=== PATIENT | female | born 1945 | race Caucasian/White ===

== ENCOUNTER → 2017-02-17 | Outpatient (CLI) | payer BC ==
[~2017-02-17] MED LIST: ACET-1256 PO; ALPR-411 PO; AMIO200T4 PO; AMOX875T PO; AMPI500C9 PO; ASPI81TA21 PO; ASPI81TA28 PO; BENZ100C18 PO; BENZ100C7 PO; BIOT1CAP4 PO; BIOT1TAB5 PO; CALCTAB5 PO; CALCTAB7 PO; CHOL2000 PO; CLC100 PO; CRDCD180 PO; CYAN100T PO; DILT-113 PO; DLCSR120 PO; DOCU100C31 PO; FLV1 PO; FOLI1TAB7 PO; FSMD/70 PO; GABA-112 PO; HYDR-5688 PO; LISI-461 PO; MACUHEALTH PO; METH2.5T PO; MULT1CAP53 PO; OMEG10007 PO; PYR50 PO; RIVA1TAB4 PO; ULT/50 PO; VTMD1000 PO; XRL20 PO; inhaler
== END | disposition home or self-care (01) ==
LOC: C.MAMM 14:28
PROVIDERS: ATTEND Family Medicine
DX: M85.89 Other specified disorders of bone density and structure, multiple sites (principal)

== ENCOUNTER 2017-08-13 14:26 | Inpatient (IN) | payer BC, OTHER ==
[~2017-08-13] VITALS: Ht 149.9 cm; Wt 51.9 kg
[~2017-08-13 14:26] MED LIST changes: -ACET-1256 PO; -AMIO200T4 PO; -AMOX875T PO; -AMPI500C9 PO; -ASPI81TA28 PO; -BENZ100C18 PO; -BENZ100C7 PO; -BIOT1TAB5 PO; -CALCTAB7 PO; -CHOL2000 PO; -CLC100 PO; -CRDCD180 PO; -DILT-113 PO; -DLCSR120 PO; -DOCU100C31 PO; -FOLI1TAB7 PO; -FSMD/70 PO; -GABA-112 PO; -HYDR-5688 PO; -LISI-461 PO; -MULT1CAP53 PO; -RIVA1TAB4 PO; -ULT/50 PO; -XRL20 PO; -inhaler
[2017-08-13] MEDS ORDERED: DILTIAZEM BOLUS / DRIP IV STA (14:55)
[2017-08-13] MEDS ORDERED: SODIUM CHLORIDE 0.9% 1000ML 1,000 ML IV STA (14:55)
[2017-08-13] MEDS ORDERED: DILTIAZEM HCL 5 MG/ML 5 ML VIAL IV ONE (15:15)
[2017-08-13] MEDS ORDERED: DILTIAZEM HCL INJ 125 MG in DEXTROSE 5% 100ML IV PRN (15:15)
[2017-08-13] MEDS ORDERED: CALCTAB7 PO (15:25)
[2017-08-13] MEDS ORDERED: MULT1CAP53 PO (15:25)
[2017-08-13] MEDS ORDERED: FSMD/70 PO (15:25)
[2017-08-13] MEDS ORDERED: FOLI1TAB7 PO (15:25)
[2017-08-13] MEDS ORDERED: ACET-1256 PO (15:25)
[2017-08-13] MEDS ORDERED: BIOT1TAB5 PO (15:25)
[2017-08-13] MEDS ORDERED: ASPIRIN 81 MG CHEW PO STA (15:34)
[2017-08-13 15:38] LABS: BASO % 0.1 %; BASO ABS # 0.02 K/uL (0-0.2); COMPLETE YES; EOS % 0.3 %; IG% 0.3 %; LYMPH % 4.1 %; LYMPH ABS # 0.61 K/uL (1.2-3.4); MEAN CELL VOLUME 93.8 fL (80-100); MEAN CORPUSCULAR HEMOGLOBIN 31.9 pg (25-34); MEAN PLATELET VOLUME 9.6 fL (7.4-10.4); MONO % 6.3 %; NEUT % 88.9 %; PLATELET COUNT 314 K/uL (130-400); RED BLOOD COUNT 4.48 M/uL (4.2-5.4); WHITE BLOOD COUNT 14.85 K/uL (4.8-10.8)
--- NOTE | 2017-08-13 15:41 | DIAGNOSTIC IMAGING REPORT ---
CHEST ONE VIEW PORTABLE CLINICAL HISTORY: 72 years-old Female presenting with Chest Pain. TECHNIQUE: Portable upright AP view of the chest was obtained. COMPARISON: Thoracic radiographs from 06/24/2016. FINDINGS: Atherosclerosis of aortic arch. Cardiac silhouette normal in size. Lungs mildly hyperinflated. Apparent spiculated 3.9 cm mass in the central left lung. An old calcified granuloma may be present at the right apex. No pleural effusion or pneumothorax. Degenerative changes of the thoracic spine. Upper abdomen normal. IMPRESSION: 1. 3.9 cm central left lung mass. This is highly concerning for a neoplastic process. Further evaluation with contrast-enhanced chest CT recommended. The report will be called/faxed according to standard departmental protocol. Electronically signed by: Yuri Delong M.D. 08/13/2017 3:40 PM Dictated Date/Time: 08/13/2017 3:38 PM
[2017-08-13] MEDS ORDERED: NITROGLYCERIN 0.4 MG SL PER TAB CHARGE SL PRN (15:45)
[2017-08-13] MEDS ORDERED: OPTIRAY 320 IV PRN (16:00)
[2017-08-13 16:12] LABS: BLOOD UREA NITROGEN 15 mg/dl (7-18); BUN/CREATININE RATIO 14.9 (10-20); CALCIUM 9.1 mg/dl (8.5-10.1); CARBON DIOXIDE 21 mmol/L (21-32); CHLORIDE 102 mmol/L (98-107); CREATININE 0.99 mg/dl (0.60-1.20); GLUCOSE 118 mg/dl (70-99); POTASSIUM 3.9 mmol/L (3.5-5.1); SODIUM 133 mmol/L (136-145)
[2017-08-13 16:17] LABS: CKMB/CK RATIO 1.4 (0-3.0)
[2017-08-13] MEDS ORDERED: LISI-461 PO (17:07)
--- NOTE | 2017-08-13 17:34 | DIAGNOSTIC IMAGING REPORT ---
(CHEST FOR PE) ANGIO WITH CT DOSE: 248.86 mGycm HISTORY: Chest pain lung mass TECHNIQUE: Multiaxial CT images of the chest were performed following the intravenous administration of contrast to evaluate the pulmonary arteries. Maximal intensity projection images were also obtained. A dose lowering technique was utilized adhering to the principles of ALARA. COMPARISON STUDY: None. FINDINGS: Slight prominence a sending thoracic aorta measuring 2.8 x 2.5 cm. Mild cardiomegaly. Pulmonary vasculature enhances appropriately. No significant filling defects. Left retrohilar mass measuring 3.6 x 3.0 cm. This appears to be occluding components of the left lower lobe bronchus. Probable component of mediastinal and hilar adenopathy. Slight peribronchial thickening throughout both hemithoraces. IMPRESSION: 1. No evidence of pulmonary embolus. 2. Left hilar mass measuring 3.6 x 3.0 cm. 3. Neoplasm is the diagnosis of exclusion. 4. Probable hilar and/or mediastinal adenopathy. 5. Mild prominence a sending thoracic aorta with maximum diameter of 2.8 x 2.5 cm. The above report was generated using voice recognition software. It may contain grammatical, syntax or spelling errors. Electronically signed by: Donavno Avitia M.D. 08/13/2017 5:33 PM Dictated Date/Time: 08/13/2017 5:27 PM
[2017-08-13 17:50] VITALS: O2SAT 97; Ht 149.9 cm; Wt 51.9 kg
--- NOTE | 2017-08-13 17:50 | ECHOCARDIOGRAM REPORT ---
*NOTICE TO RECEIVING CONSTITUTION PARTY AGENCY This information is strictly Confidential and protected under [place] law. [place] law prohibits you from making any further disclosure of this information unless further disclosure is expressly permitted by the written consent of the person to whom it pertains or is authorized by law. A general authorization for the release of medical or other information is not sufficient for this purpose. Hospital accepts no responsibility if the information is made available to any other person, INCLUDING THE PATIENT. Interpretation Summary * Name: ROSEMARIE BARAKAT Study Date: 08/13/2017 04:07 PM BP: 160/73 mmHg * Patient Location: C.ED HR: 96 * : 1945 (M/d/yyyy) Gender: Female * Age: 72 yrs Ethnicity: CA * Ordering Physician: MD Kyle Lynch MD * Referring Physician: MD Kyle Lynch MD * Performed By: Leesa Valle RCS * * Reason For Study: ABN EKG * -- Conclusions -- * 1. Normal LV size, borderline concentric LVH. * 2. Normal LV systolic function. LVEF 60-65%. No regional wall motion abnormalities. * 3. Normal RV size and function. * 4. No significant valvular patholgoy. * 5. Borderline pulmonary hypertension. Est PASP 35-40 mmHg. * 6. No prior studies for comparison. Procedure Details * A complete two-dimensional transthoracic echocardiogram was performed (2D, M-mode, Doppler and color flow Doppler). Left Ventricle * The left ventricle is grossly normal size. * There is borderline concentric left ventricular hypertrophy. * Ejection Fraction = 60-65%. * No regional wall motion abnormalities noted. Right Ventricle * The right ventricle is grossly normal size. * The right ventricular systolic function is normal as assessed by tricuspid annular plane systolic excursion (TAPSE) (normal >1.5 cm). Atria * The left atrial size is normal. * Right atrial size is normal. * No ASD detected; PFO is not assessed. Mitral Valve * The mitral valve is grossly normal. * There is no mitral valve stenosis. * There is trace mitral regurgitation. Tricuspid Valve * There is no tricuspid stenosis. * There is trace tricuspid regurgitation. Aortic Valve * The aortic valve opens well. * No hemodynamically significant valvular aortic stenosis. * There is no significant aortic regurgitation. Pulmonic Valve * The pulmonary valve is inadequately visualized, but the Doppler data is adequate for interpretation. * Pulmonic stenosis is absent. * There is no significant pulmonary regurgitation. Great Vessels * The aortic root and proximal ascending aorta are normal sized. Pericardium/Pleural * Trivial pericardial effusion Great Vessels * IVC > 2.1; <50% change with respiration. Est RA 8 mmHg. MMode 2D Measurements and Calculations IVSd 1.1 cm IVSs 1.7 cm LVIDd 3.0 cm LVIDs 2.4 cm LVPWd 1.2 cm LVPWs 1.1 cm IVS/LVPW 0.88 FS 19.5 % EDV(Teich) 34.4 ml ESV(Teich) 20.1 ml EF(Teich) 41.5 % EDV(cubed) 26.4 ml ESV(cubed) 13.8 ml EF(cubed) 47.8 % % IVS thick 57.8 % % LVPW thick -5.71 % LV mass(C)d 98.3 grams LV mass(C)s 106.4 grams SV(Teich) 14.3 ml SV(cubed) 12.6 ml Ao root diam 2.6 cm Ao root area 5.5 cm\S\2 LVOT diam 1.8 cm LVOT area 2.7 cm\S\2 Doppler Measurements and Calculations MV E max seema 91.7 cm/sec MV A max seema 71.7 cm/sec MV E/A 1.3 MV P1/2t max seema 101.8 cm/sec MV P1/2t 56.6 msec MVA(P1/2t) 3.9 cm\S\2 MV dec slope 527.3 cm/sec\S\2 MV dec time 0.16 sec Ao V2 max 121.2 cm/sec Ao max PG 5.9 mmHg Ao max PG (full) 1.5 mmHg CHAYITO(V,A) 2.3 cm\S\2 CHAYITO(V,D) 2.3 cm\S\2 LV V1 max PG 4.3 mmHg LV V1 max 104.1 cm/sec PA V2 max 89.7 cm/sec PA max PG 3.2 mmHg TR max seema 279.5 cm/sec
[2017-08-13] MEDS ORDERED: DILTIAZEM HCL 5 MG/ML 5 ML VIAL IV PRN (18:45)
[2017-08-13] MEDS ORDERED: ZOLPIDEM TARTRATE 5 MG TAB PO PRN (18:45)
[2017-08-13] MEDS ORDERED: LORAZEPAM 2 MG/ML 1 ML VIAL IV PRN (18:45)
[2017-08-13] MEDS ORDERED: ACETAMINOPHEN 325 MG TAB PO PRN (18:45)
[2017-08-13 19:02] LABS: MAGNESIUM 2.2 mg/dl (1.8-2.4)
[2017-08-13] MEDS ORDERED: DILTIAZEM HCL 30 MG TAB PO STA (19:25)
--- NOTE | 2017-08-13 19:25 | CARDIOLOGY CONSULTATION ---
DATE OF CONSULTATION: 08/13/2017 CONSULTATION REQUESTED BY: Dr. Polk in the Emergency Department. REASON FOR CONSULTATION: EKG abnormality, atrial arrhythmia. HISTORY OF PRESENT ILLNESS: Ms. Mendoza is a very pleasant 72-year-old woman with a history of COPD, hypertension, rheumatoid arthritis, and dyslipidemia who presented today with persistent chest pain and palpitations. The patient endorses intermittent palpitations for years. These will occur infrequently, often after eating a salty meal. They would last for minutes and then go away on their own without any associated symptoms. This morning approximately 1:00 a.m., developed palpitations while sleeping. This was associated with significant chest pain. She waited and it maxed 06/25. Pain persisted throughout the morning and into the afternoon before she presented to urgent care. There EKGs were done which suggested atrial arrhythmia and she was sent to the Emergency Department. In the ED initially had an EKG which appeared to be atrial flutter with RVR and heart rates in the 160s. She was given diltiazem and converted to sinus rhythm. Followup EKG showed sinus rhythm with questionable inferolateral ST elevations. Upon my review, it appeared to be J-point elevation and at time of initial interview, the patient was chest pain free. As a result, no heart alert was activated. An urgent echocardiogram showed preserved LV function without any regional wall motion abnormalities. PAST MEDICAL HISTORY: 1. Rheumatoid arthritis. 2. COPD. 3. Hypertension. 4. Hyperlipidemia. 5. Anxiety. 6. Right lumbar radiculopathy. 7. Osteopenia. FAMILY HISTORY: Had a brother who suddenly of an UT in his early 50s. Parents had high blood pressure. SOCIAL HISTORY: She has been smoking for more than 50 years, previously a pack per day, most recently approximately a half a pack. Rare alcohol, is retired. Most recently worked at [employer], previously worked for [employer] before that. MEDICATIONS: Include Tylenol, Fosamax, alprazolam, aspirin 81, biotin, calcium carbonate, vitamin D, vitamin B12, fish oil, folic acid, lisinopril 10 mg, methotrexate 2.5 and multivitamin. REVIEW OF SYSTEMS: Ten-point review of systems completed and otherwise negative unless stated in HPI. PHYSICAL EXAMINATION: VITAL SIGNS: Temperature 36.6, pulse of 96, blood pressure 160/73, she is satting 97% on room air. GENERAL: The patient appears comfortable in no acute distress. HEENT: Sclerae are anicteric. Oropharynx is clear. Mucous membranes are moist. NECK: Supple with no lymphadenopathy. LUNGS: Clear to auscultation bilaterally. CARDIAC: She has a regular rate and rhythm with no appreciable murmurs, rubs or gallops. ABDOMEN: Soft, nontender, nondistended with positive bowel sounds. EXTREMITIES: Warm. She has no significant lower extremity edema. She has intact distal pulses. SKIN: Shows no rashes or lesions. NEUROLOGIC: Nonfocal. PSYCHIATRIC: She is alert and oriented and appropriate. LABORATORY DATA: White blood cell count was 14.8, hemoglobin of 14.3, platelets of 314. D-dimer was elevated at 390. Chemistry showed sodium 133, potassium 3.9, BUN 15, creatinine of 1.0. Initial point of care troponin was negative as was CK-MB. Initial chest x-ray showed a 3.9 cm central lung mass. Followup CTA was negative for PE. There was a left retrohilar mass measuring 3.6 x 3.0 cm along with probable hilar and mediastinal adenopathy. Echocardiogram showed normal LV size, borderline concentric LVH, normal LV function with an EF of 60-65% without regional wall motion abnormalities. There was no significant valvular pathology. IMPRESSION AND PLAN: 1. Atrial flutter with rapid ventricular response. 2. EKG with ST elevations most consistent with J-point/repolarization abnormality. 3. Lung mass concerning for neoplastic process. 4. Hypertension. 5. Dyslipidemia. 6. Rheumatoid arthritis. 7. Ongoing tobacco abuse. Mrs. Mendoza is here with persistent chest pain for more than 12 hours in the setting of atrial flutter with RVR on presentation. The patient converted in the ED with AV cee agents and has been chest pain free since conversion. Cardiology initially contacted due to concern for ST elevations on follow-up ECG. Feel these ECG findings represent early repolarization and low suspicion for ACS. Atrial flutter today diagnosed in the setting of new concerning lung mass for malignancy on chest imaging. From a cardiac standpoint going forward recommend atrial flutter suppression with AV cee agents, consider low-dose diltiazem. snf, patient likely a candidate for anticoagulation with a CHADS-VASc score of 3. Would defer on anticoagulation until further workup of lung mass. No other cardiac testing necessary at this point and will continue to follow during hospitalization. Thank you for allowing us to participate in the care of this patient. NAMAN
--- NOTE | 2017-08-13 19:39 | History and Physical ---
History & Physical Date & Time of Service: Aug 13, 2017 at 19:38 Chief Complaint: Chest Pain Primary Care Physician: RV. Reveles MD History of Present Illness Source: patient The patient is a 72-year-old female who presents to the emergency department with chest pain radiating to her neck, that woke her up from sleep at around 1: 00 this morning. 2 days ago she noted heart palpitations but did not have chest pain at that time. She was seen at her PCPs office this morning, had an EKG performed which showed atrial fibrillation with RVR, and was referred to emergency department for assessment. She has no previous history of atrial fibrillation. Past Medical/Surgical History Medical Problems: (1) Arthritis Status: Chronic Family History Noncontributory Social History Smoking Status: Current Every Day Smoker Smokeless Tobacco Use: No Alcohol Use: none Drug Use: none Occupational Status: retired Immunizations History of Influenza Vaccine: Unknown History of Tetanus Vaccine?: Unknown History of Pneumococcal: Unknown History of Hepatitis B Vaccine: Unknown Multi-Drug Resistant Organisms History of MDRO: No Allergies Coded Allergies: No Known Allergies (Unverified , 09/07/14) Home Medications Scheduled Acetaminophen (Tylenol), 1,000 MG PO PRN UD Alendronate/Cholecalciferol (Fosamax+D 70MG/2800 Iu), 1 TABLET PO WK Alprazolam (Xanax), 0.5 MG PO QAM Aspirin Enteric Coated (Ecotrin Or Generic), 81 MG PO DAILY Biotin (Biotin), 1 TAB PO DAILY Calcium Carbonate-Vitamin D W/ (Caltrate 600 Plus), 1 TAB PO DAILY Cyanocobalamin (Vitamin B-12), 500 MCG PO DAILY Fish Oil ([place]-3), 1,200 MG PO DAILY Folic Acid (Folvite), 1 MG PO DAILY Lisinopril (Zestril), 10 MG PO DAILY Methotrexate (Methotrexate), 10 MG PO WK Multiple Vitamins W/ Minerals (Macular Health Formula), 1 CAP PO DAILY Review of Systems The patient denies cough, lower extremity swelling, vision change, hearing change, sore throat, fevers, chills, sweats, weight change, fatigue, nausea, vomiting, diarrhea or constipation, abdominal pain, pelvic pain, blood in urine or stool, dysuria, urinary frequency or urgency, lightheadedness , dizziness, headache, memory loss, rash, abnormal bruising or bleeding, imbalance, focal or generalized weakness, numbness or tingling legs, generalized arthralgias or myalgias, back or neck pain, or night sweats. The review of systems is otherwise negative other than for that already noted above, and at least 10 systems have been reviewed. Physical Exam Vital Signs Date Time Temp Pulse Resp B/P (MAP) Pulse Ox O2 Delivery O2 Flow Rate FiO2 08/13/17 19:37 89 08/13/17 19:23 88 20 123/102 96 08/13/17 18:25 89 18 156/85 97 Room Air 08/13/17 17:50 97 Room Air 08/13/17 17:35 100 08/13/17 16:25 96 20 160/73 97 Room Air 08/13/17 14:37 163 08/13/17 14:30 96 Room Air 08/13/17 14:30 96 Room Air 08/13/17 14:30 36.6 147 20 115/74 96 Room Air The patient is awake, well-developed and adequately nourished, alert and oriented 3, normocephalic and atraumatic, lying in bed and in no acute distress. HEENT--PERRL, EOMI, mucous membranes and oropharynx normal. Neck--supple, no JVD or bruits, thyroid normal, trachea midline, no adenopathy. Heart--mildly tachycardic, regular rate and rhythm, no murmurs, rubs or gallops. Lungs--clear bilaterally with good air movement, no respiratory distress, no accessory muscle use. Abdomen--normal bowel sounds and soft, nontender and nondistended, no hernias or masses, no organomegaly. Extremities--no cyanosis, clubbing or edema. There are good distal pulses b/l. Dermatologic--normal skin turgor, normal color, warm and dry, no abnormal lymph nodes, no rash. Neurologic--cranial nerves II through XII grossly intact, motor and sensory examination normal. Rheumatologic--normal range of motion, nontender, muscles and joints. Psychiatric--normal affect. Diagnostics Laboratory Results Results Past 24 Hours Test 08/13/17 00:00 08/13/17 15:09 Range/Units Hepatitis C Antibody Screen NEG NEG White Blood Count 14.85 4.8-10.8 K/uL Red Blood Count 4.48 4.2-5.4 M/uL Hemoglobin 14.3 12.0-16.0 g/dL Hematocrit 42.0 37-47 % Mean Corpuscular Volume 93.8 80-100 fL Mean Corpuscular Hemoglobin 31.9 25-34 pg Mean Corpuscular Hemoglobin Concent 34.0 32-36 g/dl Platelet Count 314 130-400 K/uL Mean Platelet Volume 9.6 7.4-10.4 fL Neutrophils (%) (Auto) 88.9 % Lymphocytes (%) (Auto) 4.1 % Monocytes (%) (Auto) 6.3 % Eosinophils (%) (Auto) 0.3 % Basophils (%) (Auto) 0.1 % Neutrophils # (Auto) 13.20 1.4-6.5 K/uL Lymphocytes # (Auto) 0.61 1.2-3.4 K/uL Monocytes # (Auto) 0.93 0.11-0.59 K/uL Eosinophils # (Auto) 0.05 0-0.5 K/uL Basophils # (Auto) 0.02 0-0.2 K/uL RDW Standard Deviation 46.6 36.4-46.3 fL RDW Coefficient of Variation 13.8 11.5-14.5 % Immature Granulocyte % (Auto) 0.3 % Immature Granulocyte # (Auto) 0.04 0.00-0.02 K/uL D-Dimer 390 0-500 ug/L FEU Sodium Level 133 136-145 mmol/L Potassium Level 3.9 3.5-5.1 mmol/L Chloride Level 102 98-107 mmol/L Carbon Dioxide Level 21 21-32 mmol/L Anion Gap 10.0 3-11 mmol/L Blood Urea Nitrogen 15 7-18 mg/dl Creatinine 0.99 0.60-1.20 mg/dl Est Creatinine Clear Calc Drug Dose 37.9 ml/min Estimated GFR () 66.0 Estimated GFR (Non- 56.9 BUN/Creatinine Ratio 14.9 10-20 Random Glucose 118 70-99 mg/dl Calcium Level 9.1 8.5-10.1 mg/dl Magnesium Level 2.2 1.8-2.4 mg/dl Total Bilirubin 0.6 0.2-1 mg/dl Direct Bilirubin 0.1 0-0.2 mg/dl Aspartate Amino Transf (AST/SGOT) 18 15-37 U/L Alanine Aminotransferase (ALT/SGPT) 15 12-78 U/L Alkaline Phosphatase 77 45-117 U/L Total Creatine Kinase 43 26-192 U/L Creatine Kinase MB 0.6 0.5-3.6 ng/ml Creatine Kinase MB Ratio 1.4 0-3.0 Troponin I < 0.015 0-0.045 ng/ml Total Protein 8.0 6.4-8.2 gm/dl Albumin 3.5 3.4-5.0 gm/dl Diagnostic Radiology Patient Name: ROSEMARIE BARAKAT Unit Number: [id number] Dictated: 08/13/171537 Transcribed: 08/13/171537 PBS Printed Date/Time: [~ rep prt dt]/[~ rep prt tm] [~ rep ct labl] - [~ rep ct ivnm] [facility] Radiology Department [place] [id number] Dictated: 08/13/171537 Transcribed: 08/13/171537 PBS Printed Date/Time: [~ rep prt dt]/[~ rep prt tm] [~ rep ct labl] - [~ rep ct ivnm] CHEST ONE VIEW PORTABLE CLINICAL HISTORY: 72 years-old Female presenting with Chest Pain. TECHNIQUE: Portable upright AP view of the chest was obtained. COMPARISON: Thoracic radiographs from 06/24/2016. FINDINGS: Atherosclerosis of aortic arch. Cardiac silhouette normal in size. Lungs mildly hyperinflated. Apparent spiculated 3.9 cm mass in the central left lung. An old calcified granuloma may be present at the right apex. No pleural effusion or pneumothorax. Degenerative changes of the thoracic spine. Upper abdomen normal. IMPRESSION: 1. 3.9 cm central left lung mass. This is highly concerning for a neoplastic process. Further evaluation with contrast-enhanced chest CT recommended. The report will be called/faxed according to standard departmental protocol. Electronically signed by: Yuri Delong M.D. 08/13/2017 3:40 PM Dictated Date/Time: 08/13/2017 3:38 PM The status of this report is Signed. Draft = Not yet reviewed or approved by Radiologist. Signed = Reviewed and approved by Radiologist. <AttendingPhy></AttendingPhy> <FamilyPhy>RV. Reveles MD</ FamilyPhy> <PrimaryPhy>RV. Reveles MD</PrimaryPhy> <UnitNumber> [id number]</UnitNumber> <VisitNumber>[id number]</VisitNumber> <PatientName> LAST BARAKATE Kalyn</PatientName> <DateOfBirth>1945</DateOfBirth> <Location> [facility]</Location> <ServiceDate>08/13/17</ServiceDate> <MNE>ESINDI</MNE> < OrderingPhy>Toni Polk DO</OrderingPhy> <OrderingPhyMNE>f rep ord dr sherman</ OrderingPhyMNE> <DictatingPhyMNE>f rep dict dr sherman</DictatingPhyMNE> <CCListMNE> f rep ct mne</CCListMNE> <AdmittingPhyMNE>f pt admit dr sherman</AdmittingPhyMNE> < AttendingPhyMNE>f pt attend dr sherman</AttendingPhyMNE> <ConsultingPhyMNE>f pt consult dr sherman</ConsultingPhyMNE> <FamilyPhyMNE>f pt fam dr sherman</FamilyPhyMNE> <OtherPhyMNE>f pt other dr sherman</OtherPhyMNE> < PrimaryPhyMNE>f pt prim care dr sherman</PrimaryPhyMNE> <ReferringPhyMNE>f pt referring dr sherman</ReferringPhyMNE> Patient Name: ROSEMARIE BARAKAT Unit Number: [id number] Dictated: 08/13/171726 Transcribed: 08/13/171726 MS Printed Date/Time: [~ rep prt dt]/[~ rep prt tm] [~ rep ct labl] - [~ rep ct ivnm] [facility] [place] [address] Dictated: 08/13/171726 Transcribed: 08/13/171726 MS Printed Date/Time: [~ rep prt dt]/[~ rep prt tm] [~ rep ct labl] - [~ rep ct ivnm] (CHEST FOR PE) ANGIO WITH CT DOSE: 248.86 mGycm HISTORY: Chest pain lung mass TECHNIQUE: Multiaxial CT images of the chest were performed following the intravenous administration of contrast to evaluate the pulmonary arteries. Maximal intensity projection images were also obtained. A dose lowering technique was utilized adhering to the principles of ALARA. COMPARISON STUDY: None. FINDINGS: Slight prominence a sending thoracic aorta measuring 2.8 x 2.5 cm. Mild cardiomegaly. Pulmonary vasculature enhances appropriately. No significant filling defects. Left retrohilar mass measuring 3.6 x 3.0 cm. This appears to be occluding components of the left lower lobe bronchus. Probable component of mediastinal and hilar adenopathy. Slight peribronchial thickening throughout both hemithoraces. IMPRESSION: 1. No evidence of pulmonary embolus. 2. Left hilar mass measuring 3.6 x 3.0 cm. 3. Neoplasm is the diagnosis of exclusion. 4. Probable hilar and/or mediastinal adenopathy. 5. Mild prominence a sending thoracic aorta with maximum diameter of 2.8 x 2.5 cm. The above report was generated using voice recognition software. It may contain grammatical, syntax or spelling errors. Electronically signed by: Donavon Avitia M.D. 08/13/2017 5:33 PM Dictated Date/Time: 08/13/2017 5:27 PM The status of this report is Signed. Draft = Not yet reviewed or approved by Radiologist. Signed = Reviewed and approved by Radiologist. <AttendingPhy></AttendingPhy> <FamilyPhy>RV. Reveles MD</ FamilyPhy> <PrimaryPhy>RV. Reveles MD</PrimaryPhy> <UnitNumber> [id number]</UnitNumber> <VisitNumber>[id number]</VisitNumber> <PatientName> ROSEMARIE BARAKAT</PatientName> <DateOfBirth>1945</DateOfBirth> <Location> [facility]</Location> <ServiceDate>08/13/17</ServiceDate> <MNE>ESINDI</MNE> < OrderingPhy>Polk, Toni M DO</OrderingPhy> <OrderingPhyMNE>f rep ord dr sherman</ OrderingPhyMNE> <DictatingPhyMNE>f rep dict dr sherman</DictatingPhyMNE> <CCListMNE> f rep ct mne</CCListMNE> <AdmittingPhyMNE>f pt admit dr sherman</AdmittingPhyMNE> < AttendingPhyMNE>f pt attend dr sherman</AttendingPhyMNE> <ConsultingPhyMNE>f pt consult dr sherman</ConsultingPhyMNE> <FamilyPhyMNE>f pt fam dr sherman</FamilyPhyMNE> <OtherPhyMNE>f pt other dr sherman</OtherPhyMNE> < PrimaryPhyMNE>f pt prim care dr sherman</PrimaryPhyMNE> <ReferringPhyMNE>f pt referring dr sherman</ReferringPhyMNE> EKG EKG #1 at 1455 shows atrial flutter with RVR at 167 bpm. EKG #2 at 1528 shows normal sinus rhythm at 100 bpm. Impression Assessment and Plan Atrial flutter with RVR-- Patient was seen by Dr. Lynch from cardiology in the emergency department who performed an echo and assessment. The patient be admitted to the telemetry unit for serial cardiac enzymes and continued cardiac rhythm monitoring. Start Cardizem 30 mg by mouth 3 times a day with first dose now, with plan to convert to extended release Cardizem in the a.m. Consult Dr. Lynch, who will determine what long-term anticoagulation is necessary. Hold lisinopril 10 mg by mouth daily. Hold aspirin until lung mass identified. Left hilar mass 3.6 x 3.0 cm-- Nothing by mouth after midnight except medications. Consult pulmonology for possible bronchoscopy. Tobacco use disorder-- Consult tobacco cessation team. Anxiety-- Hold oral alprazolam. Lorazepam 0.5 mg IV every 6 hours when necessary. Arthritis-- Methotrexate as an outpatient. Hold oral medications until bronchoscopy completed. Level of Care Telemetry Advanced Directives Existing Advance Directive: No Existing Living Will: Yes Existing Power of Room Service Runner: Yes Resuscitation Status FULL RESUSCITATION VTE Prophylaxis VTE Risk Assessment Done? Y/N: Yes Risk Level: Moderate Given or contraindicated: SCD's Social Service Consult None Apply
--- NOTE | 2017-08-13 19:58 | EMERGENCY ROOM VISIT NOTE ---
History Report prepared by Tiesha: Drea Barreto Under the Supervision of: Dr. Toni Polk D.O. First contact with patient: 14:42 Chief Complaint: CHEST PAIN Stated Complaint: CHEST PAIN Nursing Triage Summary: Patient arrived via ALS from [facility] office. Patient states had chest pain at 0100, took tylenol, had some relief. Chest pain returned at approximately 0900, took tylenol with relief, and again this afternoon at PCP office. Patient states pain radiates to back, was using heating pad this AM. Patient denies SOB, N/V/D, diaphoresis. Was given 324 aspirin. History of Present Illness The patient is a 72 year old female who presents to the Emergency Room with complaints of persistent chest pain that began around 0100 this morning. She currently rates her discomfort as a 7/10 in severity. The patient states that two days ago she began notice her heart begin to race, but denies any chest pain at that time. The patient states that at 0100 she woke up with central chest pain that radiated into her neck. She states that she took Tylenol that alleviated her neck pain. The patient denies any current pain radiating into her neck, jaw, or arm. She denies any history of a previous [place] or irregular heart rhythms. The patient denies any history of blood clots or being on any anticoagulants. She states that she was evaluated at her PCP's office this morning and after she had an EKG done that showed atrial fibrillation with RVR. The patient states that she was instructed to come to the emergency department for further evaluation and treatment. She reports increased pain with breathing. The patient reports a history of arthritis noting that she is on methotrexate. Pt denies headache, change in vision, fevers, shortness of breath, nausea, vomiting, diarrhea, pain with urination, and melena. Source of History: patient Onset: 0100 this morning Position: chest Symptom Intensity: 7/10 Timing: other (persistent) Modifying Factors (Worsening): breathing Associated Symptoms: + neck pain Note: Associated Symptoms: heart racing Review of Systems See HPI for pertinent positives & negatives. A total of 10 systems reviewed and were otherwise negative. Past Medical & Surgical Medical Problems: (1) Arthritis (2) Atrial fibrillation with RVR (3) Mass of left lung Family History No pertinent family history stated. Social History Smoking Status: Current Every Day Smoker Marital Status: Occupation Status: retired Current/Historical Medications Scheduled Acetaminophen (Tylenol), 1,000 MG PO PRN UD Alendronate/Cholecalciferol (Fosamax+D 70MG/2800 Iu), 1 TABLET PO WK Alprazolam (Xanax), 0.5 MG PO QAM Aspirin Enteric Coated (Ecotrin Or Generic), 81 MG PO DAILY Biotin (Biotin), 1 TAB PO DAILY Calcium Carbonate-Vitamin D W/ (Caltrate 600 Plus), 1 TAB PO DAILY Cyanocobalamin (Vitamin B-12), 500 MCG PO DAILY Fish Oil (Jackson-3), 1,200 MG PO DAILY Folic Acid (Folvite), 1 MG PO DAILY Lisinopril (Zestril), 10 MG PO DAILY Methotrexate (Methotrexate), 10 MG PO WK Multiple Vitamins W/ Minerals (Macular Health Formula), 1 CAP PO DAILY Allergies Coded Allergies: No Known Allergies (Unverified , 09/07/14) Physical Exam Vital Signs Date Time Temp Pulse Resp B/P (MAP) Pulse Ox O2 Delivery O2 Flow Rate FiO2 08/13/17 18:25 89 18 156/85 97 Room Air 08/13/17 17:50 97 Room Air 08/13/17 17:35 100 08/13/17 16:25 96 20 160/73 97 Room Air 08/13/17 14:37 163 08/13/17 14:30 96 Room Air 08/13/17 14:30 96 Room Air 08/13/17 14:30 36.6 147 20 115/74 96 Room Air Physical Exam GENERAL: alert, sitting up in bed, disheveled, well appearing, well nourished, minimal distress, non-toxic EYE EXAM: normal conjunctiva. OROPHARYNX: no exudate, no erythema, lips, buccal mucosa, and tongue normal and mucous membranes are moist NECK: supple, no nuchal rigidity, no adenopathy, non-tender LUNGS: Clear to auscultation. Normal chest wall mechanics HEART: no murmurs, S1 normal and S2 normal ABDOMEN: abdomen soft, non-tender, normo-active bowel sounds, no masses, no rebound or guarding. BACK: Back is symmetrical on inspection and there is no deformity, no midline tenderness, no CVA tenderness. SKIN: no rashes and no bruising UPPER EXTREMITIES: upper extremities are grossly normal. radial pulses are equal bilaterally LOWER EXTREMITIES: No pitting edema. calves are equal bilaterally. NEURO EXAM: Normal sensorium, cranial nerves II-XII grossly intact, normal speech, no gross weakness of arms, no gross weakness of legs. Medical Decision & Procedures ER Provider Diagnostic Interpretation: Radiology results as stated below per my review and the radiologist's interpretation: CHEST ONE VIEW PORTABLE CLINICAL HISTORY: 72 years-old Female presenting with Chest Pain. TECHNIQUE: Portable upright AP view of the chest was obtained. COMPARISON: Thoracic radiographs from 06/24/2016. FINDINGS: Atherosclerosis of aortic arch. Cardiac silhouette normal in size. Lungs mildly hyperinflated. Apparent spiculated 3.9 cm mass in the central left lung. An old calcified granuloma may be present at the right apex. No pleural effusion or pneumothorax. Degenerative changes of the thoracic spine. Upper abdomen normal. IMPRESSION: 1. 3.9 cm central left lung mass. This is highly concerning for a neoplastic process. Further evaluation with contrast-enhanced chest CT recommended. The report will be called/faxed according to standard departmental protocol. Electronically signed by: Yuri Delong M.D. 08/13/2017 3:40 PM Dictated Date/Time: 08/13/2017 3:38 PM (CHEST FOR PE) ANGIO WITH CT DOSE: 248.86 mGycm HISTORY: Chest pain lung mass TECHNIQUE: Multiaxial CT images of the chest were performed following the intravenous administration of contrast to evaluate the pulmonary arteries. Maximal intensity projection images were also obtained. A dose lowering technique was utilized adhering to the principles of ALARA. COMPARISON STUDY: None. FINDINGS: Slight prominence a sending thoracic aorta measuring 2.8 x 2.5 cm. Mild cardiomegaly. Pulmonary vasculature enhances appropriately. No significant filling defects. Left retrohilar mass measuring 3.6 x 3.0 cm. This appears to be occluding components of the left lower lobe bronchus. Probable component of mediastinal and hilar adenopathy. Slight peribronchial thickening throughout both hemithoraces. IMPRESSION: 1. No evidence of pulmonary embolus. 2. Left hilar mass measuring 3.6 x 3.0 cm. 3. Neoplasm is the diagnosis of exclusion. 4. Probable hilar and/or mediastinal adenopathy. 5. Mild prominence a sending thoracic aorta with maximum diameter of 2.8 x 2.5 cm. The above report was generated using voice recognition software. It may contain grammatical, syntax or spelling errors. Electronically signed by: Donavon Avitia M.D. 08/13/2017 5:33 PM Dictated Date/Time: 08/13/2017 5:27 PM Laboratory Results 08/13/17 15:09 Red Blood Count 4.48, Mean Corpuscular Volume 93.8, Mean Corpuscular Hemoglobin 31.9, Mean Corpuscular Hemoglobin Concent 34.0, Mean Platelet Volume 9.6, Neutrophils (%) (Auto) 88.9, Lymphocytes (%) (Auto) 4.1, Monocytes (%) (Auto) 6.3, Eosinophils (%) (Auto) 0.3, Basophils (%) (Auto) 0.1, Neutrophils # (Auto) 13.20, Lymphocytes # (Auto) 0.61, Monocytes # (Auto) 0.93, Eosinophils # (Auto) 0.05, Basophils # (Auto) 0.02 08/13/17 15:09 Test 08/13/17 00:00 08/13/17 15:09 Hepatitis C Antibody Screen NEG (NEG) White Blood Count 14.85 K/uL (4.8-10.8) Red Blood Count 4.48 M/uL (4.2-5.4) Hemoglobin 14.3 g/dL (12.0-16.0) Hematocrit 42.0 % (37-47) Mean Corpuscular Volume 93.8 fL (80-100) Mean Corpuscular Hemoglobin 31.9 pg (25-34) Mean Corpuscular Hemoglobin Concent 34.0 g/dl (32-36) Platelet Count 314 K/uL (130-400) Mean Platelet Volume 9.6 fL (7.4-10.4) Neutrophils (%) (Auto) 88.9 % Lymphocytes (%) (Auto) 4.1 % Monocytes (%) (Auto) 6.3 % Eosinophils (%) (Auto) 0.3 % Basophils (%) (Auto) 0.1 % Neutrophils # (Auto) 13.20 K/uL (1.4-6.5) Lymphocytes # (Auto) 0.61 K/uL (1.2-3.4) Monocytes # (Auto) 0.93 K/uL (0.11-0.59) Eosinophils # (Auto) 0.05 K/uL (0-0.5) Basophils # (Auto) 0.02 K/uL (0-0.2) RDW Standard Deviation 46.6 fL (36.4-46.3) RDW Coefficient of Variation 13.8 % (11.5-14.5) Immature Granulocyte % (Auto) 0.3 % Immature Granulocyte # (Auto) 0.04 K/uL (0.00-0.02) D-Dimer 390 ug/L FEU (0-500) Anion Gap 10.0 mmol/L (3-11) Est Creatinine Clear Calc Drug Dose 37.9 ml/min Estimated GFR () 66.0 Estimated GFR (Non- 56.9 BUN/Creatinine Ratio 14.9 (10-20) Calcium Level 9.1 mg/dl (8.5-10.1) Magnesium Level 2.2 mg/dl (1.8-2.4) Total Bilirubin 0.6 mg/dl (0.2-1) Direct Bilirubin 0.1 mg/dl (0-0.2) Aspartate Amino Transf (AST/SGOT) 18 U/L (15-37) Alanine Aminotransferase (ALT/SGPT) 15 U/L (12-78) Alkaline Phosphatase 77 U/L (45-117) Total Creatine Kinase 43 U/L (26-192) Creatine Kinase MB 0.6 ng/ml (0.5-3.6) Creatine Kinase MB Ratio 1.4 (0-3.0) Troponin I < 0.015 ng/ml (0-0.045) Total Protein 8.0 gm/dl (6.4-8.2) Albumin 3.5 gm/dl (3.4-5.0) Laboratory results per my review. Medications Administered Medications (Trade) Dose Ordered Sig/Corrina Route Start Time Stop Time Status Last Admin Dose Admin Sodium Chloride 1,000 ml @ 999 mls/hr Q1H1M STAT IV 08/13/17 14:55 08/13/17 15:55 DC 08/13/17 15:17 999 MLS/HR Aspirin (Aspirin Chew) 324 mg NOW STAT PO 08/13/17 15:34 08/13/17 15:35 DC 08/13/17 15:53 324 MG ECG Indication: chest pain, tachycardia Rate (beats per minute): 167 Rhythm: atrial flutter Findings: other (normal axis, poor baseline) Change: EKG Prior to hospital, atrial fibrillation with RVR normal axis rate of 161. This was done at 1400 today. ED Course ED COURSE: Vital signs were reviewed and showed tachycardic The patients medical record was reviewed The above diagnostic studies were performed and reviewed. ED treatments and interventions as stated above. 1447: The patient was evaluated in room C2B. A complete history and physical examination was performed. 1455: Ordered Diltiazem 1 ea IV, Sodium Chloride 1000 ml @ 999 mls/hr IV. 1515: Ordered Diltiazem HCl 125 mg/Dextrose 215 ml @ 0 mls/hr protocol IV, Diltiazem HCl 10 mg IV. 1530: I reevaluated the patient and she got 324 of aspirin, and is reporting faint chest pain at this time. 1534: Ordered Aspirin 324 mg PO. 1537: I discussed the patients case with Dr. Lynch, Interventional Cardiology. He is going to come see the patient. 1545: Ordered Nitroglycerin 0.4 mg SL. 1552: I reevaluated the patient and she is resting. Dr. Lynch, Interventional Cardiology is at the patients bedside. 1728: The patient's case was [place], [facility] [place] He is going to evaluate the patient for further treatment. 1757: Upon reevaluation, the patient is resting comfortably.I discussed my findings with the patient and she understands and agrees with the treatment plan. Based on the patients age, coexisting illnesses, exam and lab findings the decision to treat as an inpatient was made. The patient remained stable while under my care. The patient will be evaluated for further management. Medical Decision Differential diagnoses includes but is not limited to acute coronary syndrome, myocardial infarction, pericarditis, pulmonary embolus, aortic dissection, pneumonia, pneumothorax, musculoskeletal, shingles, esophageal. Patient is a 72-year-old female who presents to ER for left-sided chest pain associated with neck pain. She is referred in by PCP where she was found to be in A. fib with RVR. EKGs were reviewed and I agree with this. 5 presentation here she appears to be in an atrial flutter with a rate in the 160s. Cardizem drip and bolus was ordered but she broke into a normal sinus rhythm prior to this. Chest x-ray obtained showed a left-sided chest mass. CT PE performed that shows no PE but likely cancerous mass. Her chest pain nearly completely resolved which converted into a sinus rhythm. EKG showed ST elevations in the lateral leads which I favor for J point but with her symptoms I consulted interventional cardiology. They evaluated the patient. Echo was performed and was unremarkable. Patient was given aspirin. She is admitted to internal medicine with paroxysmal A. fib, lung mass and precordial chest pain. Medication Reconcilliation Current Medication List: was personally reviewed by me Blood Pressure Screening Patient's blood pressure: Normal blood pressure Blood pressure disposition: Did not require urgent referral Consults Time Called: 1530 Consulting Physician: Dr. Lynch, Interventional Cardiology Returned Call: [phone] I discussed the patients case with Dr. Lynch Interventional Cardiology. He is going to come see the patient. Additional Consults: Time Called: 1721 Consulted Physician: LUIS F Ferrara Returned Call: [phone] Additional Comments: The patient's case was discussed with LUIS F Ferrara. He is going to evaluate the patient for further treatment. Impression Primary Impression: Atrial fibrillation with RVR Additional Impressions: Precordial chest pain Mass of left lung Scribe Attestation The scribe's documentation has been prepared under my direction and personally reviewed by me in its entirety. I confirm that the note above accurately reflects all work, treatment, procedures, and medical decision making performed by me. Departure Information Dispostion Being Evaluated By Hospitalist Problem Qualifiers
[2017-08-13 20:00] VITALS: BP 125/75; PULSE 94; TEMP 36.6; O2SAT 94; O2SAT 96
[2017-08-13] MEDS: NSS + 20MEQ KCL 1000ML 1,000 ML IV SCH (20:28)
[2017-08-13] MEDS: DILTIAZEM HCL 30 MG TAB PO SCH (22:15)
[2017-08-13 23:41] VITALS: BP 102/68; PULSE 82; TEMP 37; O2SAT 95
[2017-08-14] VITALS (25 sets, daily range): BP systolic 86–157; BP diastolic 43–93; PULSE 78–100; TEMP 36.5–36.9; O2SAT 92–100
[2017-08-14] MEDS: NSS + 20MEQ KCL 1000ML 1,000 ML IV SCH (05:28)
[2017-08-14 06:53] LABS: ESTIMATED AVERAGE GLUCOSE 103 mg/dl; HA1C FLAG Normal (Normal)
[2017-08-14] MEDS: DILTIAZEM HCL 30 MG TAB PO SCH ×2 (08:12→13:57)
[2017-08-14] MEDS ORDERED: ALPRAZOLAM 0.5 MG TAB PO SCH (09:00)
[2017-08-14] MEDS ORDERED: LISINOPRIL 10 MG TAB PO SCH (09:00)
--- NOTE | 2017-08-14 09:28 | Pulmonary Consultation ---
History General Date of Service: Aug 14, 2017. Stated Complaint: Atrial Fibrillation With Rvr, Mass Of Lt Lung HPI The patient is a 72 year old female who presents to [facility] with complaints of Atrial Fibrillation With Rvr, Mass Of Lt Lung. The patient's primary care provider is RV. Reveles MD. Ms. Mendoza is 72-year-old female with past medical history of COPD (with unknown FEV1), hypertension, dyslipidemia, rheumatoid arthritis who presented to [facility] on 08/13/2017 with complaints of palpitations and chest pain that started yesterday morning and awakened her from sleep. She states that this is not uncommon for her and she does have history of intermittent palpitations. However they persisted into the afternoon which prompted her to come to the ER for further evaluation. She denies any fevers, chills, chest pain, cough, shortness of breath, decreased exercise tolerance, hemoptysis, changes in appetite or weight loss. She denies any rashes, joint pain or swelling. She denies any sick contacts or recent travel. Upon arrival to the ER her vital signs were temperature 36.6, pulse 147, respiratory rate 20, blood pressure 115/74 pulse oximetry 96% on room air. Initial EKG showed atrial flutter with RVR with ventricular rate in [id number]. She was given diltiazem with subsequent conversion to sinus rhythm. EKG post cardioversion showed ST elevations. She also received nitroglycerin 0.4 mg, aspirin 324 mg, 1 L normal saline bolus. Cardiology was consulted and felt that this was most consistent with a J-point/repolarization abnormality. Laboratory data showed Sodium 133, potassium 3.9, chloride 102, carbon dioxide , BUN 15 and creatinine 0.99. Glucose was 118, calcium 9.1, magnesium 2.2, total bili 0.6, direct bilirubin 0.1, AST 18, ALP 15, alkaline phosphatase 15. Troponin less than 0.015. Total protein 8 and albumin 2.5. D-dimer 390. Hematology showed a white blood cell count 14.5, hemoglobin 14.3, platelet count 314. Hepatitis C's antibody screen is negative. Chest x-ray showed a 3.9 cm spiculated left lung mass. CT of chest was done to rule out a pulmonary embolism which was negative, however significant for a left retrohilar mass measuring about 3.6 x 3.0 cm occluding the left lower lobe bronchus. Mediastinal and hilar adenopathy seen on left. An echocardiogram was done which showed normal left ventricular size with borderline concentric left ventricular hypertrophy; normal left ventricular function with EF between 60-65%; no regional wall motion abnormalities or significant valvular disease. She was admitted to medical floor for telemetry monitoring and for workup of left lung mass. At the time of my evaluation she currently denies any chest pain or shortness of breath. Historian: patient, other (EMR) Onset: just prior to arrival Complaint Status: improved Quality of Pain: pressure Review of Systems Constitutional: reports: as stated in HPI, weight gain Eyes: reports: as stated in HPI ENT: reports: as stated in HPI Cardiovascular: reports: as stated in HPI Respiratory: reports: as stated in HPI Gastrointestinal: reports: as stated in HPI Genitourinary - Female: reports: as stated in HPI Musculoskeletal: reports: as stated in HPI Integumentary: reports: as stated in HPI Neurologic: reports: as stated in HPI Psychiatric: reports: as stated in HPI Endocrine: as stated in HPI Hematologic / Lymphatic: as stated in HPI Allergic / Immunologic: as stated in HPI All Other Symptoms All Other Systems: Reviewed and Negative Past Medical History Past Medical History: COPD (with unknown FEV1), hypertension, dyslipidemia rheumatoid arthritis Past Surgical History: cataract surgery Family History Brother-sudden from acute [place] in 50s Mother and father-hypertension Social History She is a current smoker with a [id number] history. Denies any alcohol use or illicit drug use. Smoking Status: Current Every Day Smoker Marital status: Occupational Status: retired History of MDRO History of MDRO: No Allergies Coded Allergies: No Known Allergies (Unverified , 09/07/14) Current Medications Reported Home Medications Medications Dose Route/Sig Max Daily Dose Days Date Category Dose Instructions Tylenol (Acetaminophen) 500 Mg Tab 1,000 Mg PO PRN UD 08/13/17 Reported Macular Health Formula (Multiple Vitamins W/ Minerals) 1 Cap Cap 1 Cap PO DAILY 08/13/17 Reported Biotin 1,000 Mcg Tab 1 Tab PO DAILY 08/13/17 Reported Caltrate 600 Plus (Calcium Carbonate-Vitamin D W/) 1 Tab Tab 1 Tab PO DAILY 08/13/17 Reported Folvite (Folic Acid) 1 Mg Tab 1 Mg PO DAILY 08/13/17 Reported Fosamax+D 70MG/2800 Iu (Alendronate Sodium/Vitamin D3) 70 Mg Tab 1 Tablet PO WK 08/13/17 Reported TAKE ON MONDAYS Ecotrin Or Generic (Aspirin) 81 Mg Tab 81 Mg PO DAILY 09/01/14 Reported Zestril (Lisinopril) 10 Mg Tab 10 Mg PO DAILY 09/01/14 Reported Vitamin B-12 (Cyanocobalamin) 100 Mcg Tab 500 Mcg PO DAILY 09/01/14 Reported [place]-3 (Fish Oil) 1 Ea Cap 1,200 Mg PO DAILY 09/01/14 Reported Methotrexate 2.5 Mg Tab 10 Mg PO WK 09/01/14 Reported TAKES ON TUESDAYS Xanax (Alprazolam) 0.5 Mg Tab 0.5 Mg PO QAM 07/01/08 Reported Physical Physical Exam Vital Signs: Date Time Temp Pulse Resp B/P (MAP) Pulse Ox O2 Delivery O2 Flow Rate FiO2 08/14/17 07:23 36.7 82 16 118/51 (73) 96 Room Air 08/14/17 06:09 36.7 78 20 102/63 96 08/14/17 04:00 36.7 78 20 102/63 (76) 96 Room Air 08/14/17 04:00 Room Air 08/14/17 00:00 Room Air 08/13/17 23:41 37.0 82 20 102/68 (79) 95 Room Air 08/13/17 20:00 96 Room Air 08/13/17 20:00 36.6 94 18 125/75 (92) 94 Room Air 08/13/17 19:37 89 08/13/17 19:23 88 20 123/102 96 08/13/17 18:25 89 18 156/85 97 Room Air 08/13/17 17:50 97 Room Air 08/13/17 17:35 100 08/13/17 16:25 96 20 160/73 97 Room Air 08/13/17 14:37 163 08/13/17 14:30 96 Room Air 08/13/17 14:30 96 Room Air 08/13/17 14:30 36.6 147 20 115/74 96 Room Air General Appearance: WD/WN, NO APPARENT DISTRESS Head: NORMOCEPHALIC, ATRAUMATIC Eyes: PERRLA, NO DISCHARGE, EOMI, SCLERAE NORMAL ENT: NORMAL MOUTH EXAM, NORMAL THROAT EXAM Neck: NORMAL RANGE OF MOTION, NO TENDERNESS, TRACHEA MIDLINE, NO STRIDOR, SUPPLE Respiratory: BREATH SOUNDS NORMAL, CLEAR TO AUSCULTATION, NO RESPIRATORY DISTRESS Cardiovasular: REGULAR RATE/RHYTHM, NORMAL S1S2, NO M/G/R Abdomen: NON TENDER, NORMAL BOWEL SOUNDS, NO REBOUND, NO MASSES, NO GUARDING Back: NORMAL INSPECTION Upper Extremities: NO EDEMA, NO DEFORMITY, NORMAL ROM, other (no clubbing, no cyanosis) Lower Extremities: NO EDEMA, NO DEFORMITY, NORMAL ROM, other (trace lower extremity swelling) Pulses: dorsalis pedis (R) (2+), dorsalis pedis (L) (2+) Neuro: ALERT, ORIENTED x 3, NORMAL MOTOR EXAM, NORMAL SENSATION, NORMAL CEREBELLAR EXAM, NORMAL SPEECH, NORMAL GAIT, NORMAL MEMORY Psychiatric: NORMAL AFFECT, NO SUICIDAL IDEATION, CONTRACTS FOR SAFETY, anxious (tearful during interview.) Diagnostics Labs Results Past 24 Hours Test 08/13/17 15:09 Range/Units White Blood Count 14.85 4.8-10.8 K/uL Red Blood Count 4.48 4.2-5.4 M/uL Hemoglobin 14.3 12.0-16.0 g/dL Hematocrit 42.0 37-47 % Mean Corpuscular Volume 93.8 80-100 fL Mean Corpuscular Hemoglobin 31.9 25-34 pg Mean Corpuscular Hemoglobin Concent 34.0 32-36 g/dl Platelet Count 314 130-400 K/uL Mean Platelet Volume 9.6 7.4-10.4 fL Neutrophils (%) (Auto) 88.9 % Lymphocytes (%) (Auto) 4.1 % Monocytes (%) (Auto) 6.3 % Eosinophils (%) (Auto) 0.3 % Basophils (%) (Auto) 0.1 % Neutrophils # (Auto) 13.20 1.4-6.5 K/uL Lymphocytes # (Auto) 0.61 1.2-3.4 K/uL Monocytes # (Auto) 0.93 0.11-0.59 K/uL Eosinophils # (Auto) 0.05 0-0.5 K/uL Basophils # (Auto) 0.02 0-0.2 K/uL RDW Standard Deviation 46.6 36.4-46.3 fL RDW Coefficient of Variation 13.8 11.5-14.5 % Immature Granulocyte % (Auto) 0.3 % Immature Granulocyte # (Auto) 0.04 0.00-0.02 K/uL D-Dimer 390 0-500 ug/L FEU Sodium Level 133 136-145 mmol/L Potassium Level 3.9 3.5-5.1 mmol/L Chloride Level 102 98-107 mmol/L Carbon Dioxide Level 21 21-32 mmol/L Anion Gap 10.0 3-11 mmol/L Blood Urea Nitrogen 15 7-18 mg/dl Creatinine 0.99 0.60-1.20 mg/dl Est Creatinine Clear Calc Drug Dose 37.9 ml/min Estimated GFR () 66.0 Estimated GFR (Non- 56.9 BUN/Creatinine Ratio 14.9 10-20 Random Glucose 118 70-99 mg/dl Estimated Average Glucose 103 mg/dl Hemoglobin A1c 5.2 4.5-5.6 % Calcium Level 9.1 8.5-10.1 mg/dl Magnesium Level 2.2 1.8-2.4 mg/dl Total Bilirubin 0.6 0.2-1 mg/dl Direct Bilirubin 0.1 0-0.2 mg/dl Aspartate Amino Transf (AST/SGOT) 18 15-37 U/L Alanine Aminotransferase (ALT/SGPT) 15 12-78 U/L Alkaline Phosphatase 77 45-117 U/L Total Creatine Kinase 43 26-192 U/L Creatine Kinase MB 0.6 0.5-3.6 ng/ml Creatine Kinase MB Ratio 1.4 0-3.0 Troponin I < 0.015 0-0.045 ng/ml Total Protein 8.0 6.4-8.2 gm/dl Albumin 3.5 3.4-5.0 gm/dl Diagnostic Radiology CHEST ONE VIEW PORTABLE CLINICAL HISTORY: 72 years-old Female presenting with Chest Pain. TECHNIQUE: Portable upright AP view of the chest was obtained. COMPARISON: Thoracic radiographs from 06/24/2016. FINDINGS: Atherosclerosis of aortic arch. Cardiac silhouette normal in size. Lungs mildly hyperinflated. Apparent spiculated 3.9 cm mass in the central left lung. An old calcified granuloma may be present at the right apex. No pleural effusion or pneumothorax. Degenerative changes of the thoracic spine. Upper abdomen normal. IMPRESSION: 1. 3.9 cm central left lung mass. This is highly concerning for a neoplastic process. Further evaluation with contrast-enhanced chest CT recommended. The report will be called/faxed according to standard departmental protocol. (CHEST FOR PE) ANGIO WITH CT DOSE: 248.86 mGycm HISTORY: Chest pain lung mass TECHNIQUE: Multiaxial CT images of the chest were performed following the intravenous administration of contrast to evaluate the pulmonary arteries. Maximal intensity projection images were also obtained. A dose lowering technique was utilized adhering to the principles of ALARA. COMPARISON STUDY: None. FINDINGS: Slight prominence a sending thoracic aorta measuring 2.8 x 2.5 cm. Mild cardiomegaly. Pulmonary vasculature enhances appropriately. No significant filling defects. Left retrohilar mass measuring 3.6 x 3.0 cm. This appears to be occluding components of the left lower lobe bronchus. Probable component of mediastinal and hilar adenopathy. Slight peribronchial thickening throughout both hemithoraces. IMPRESSION: 1. No evidence of pulmonary embolus. 2. Left hilar mass measuring 3.6 x 3.0 cm. 3. Neoplasm is the diagnosis of exclusion. 4. Probable hilar and/or mediastinal adenopathy. 5. Mild prominence a sending thoracic aorta with maximum diameter of 2.8 x 2.5 cm. TTE 08/13/2017 * -- Conclusions -- * 1. Normal LV size, borderline concentric LVH. * 2. Normal LV systolic function. LVEF 60-65%. No regional wall motion abnormalities. * 3. Normal RV size and function. * 4. No significant valvular patholgoy. * 5. Borderline pulmonary hypertension. Est PASP 35-40 mmHg. * 6. No prior studies for comparison. EKG EKG 08/14/2017 NSR 82 bpm, ND depression EKG 08/13/2017 (after cardiazem) NSR 100 bpm, ND depression EKG 08/13/2017 (on admission) Atrial flutter with RVR, ventricular ate 167 bpm Impression Assessment and Plan Left lung mass Mediastinal and hilar adenopathy Atrial flutter-now resolved Tobacco use disorder History of COPD (unknown FEV1) History of Rheumatoid arthritis (on methotrexate) History of hypertension History of hyperlipidemia History of Anxiety Ms. Mendoza this 72-year-old female who presented with palpitations and found to be in atrial flutter with RVR. She was cardioverted with diltiazem and is now with normal sinus rhythm. However further workup with chest x-ray showed a 3.9 cm left spiculated mass. CT chest with contrast to rule out PE was done which confirmed this. Pulmonary embolism was negative. She was seen by cardiology post cardioversion for what appeared to be an elevation in ST segment, however this was thought to be a J-point secondary to repolarization. Anticoagulation was held for further workup mass. At this time, I have ordered a PT and INR to rule out any further coagulopathies. Platelets are within normal limits. She did receive aspirin yesterday. Due to patient's long history of smoking she is at increased risk for malignancy. At the current time, I recommend a bronchoscopy. I will obtain a consent for bronchoscopy with BAL and transbronchial biopsy for further tissue evaluation. Please keep patient nothing by mouth this morning She also carries a diagnosis of COPD. There is no documented FEV1. She is currently not on any bronchodilators or inhaled corticosteroids. She has no functional limitations at this point. She should have a full pulmonary function test done as an outpatient. Smoking cessation counseling provided. Nicotine patch offered, but she declined. I appreciate the consult. Please from you any further questions or concerns.
[2017-08-14 09:50] LABS: INR 1.1 (0.9-1.1); PARTIAL THROMBOPLASTIN RATIO 1.2; PROTHROMBIN TIME (PATIENT) 12.1 SECONDS (9.0-12.0)
--- NOTE | 2017-08-14 10:26 | Procedure Note ---
Pre-Mod Sedation Assessment General Date of Moderate Sedation: Aug 14, 2017. Vital Signs: Vital Signs Past 12 Hours Date Time Temp Pulse Resp B/P (MAP) Pulse Ox O2 Delivery O2 Flow Rate FiO2 08/14/17 08:00 Room Air 08/14/17 07:23 36.7 82 16 118/51 (73) 96 Room Air 08/14/17 06:09 36.7 78 20 102/63 96 08/14/17 04:00 36.7 78 20 102/63 (76) 96 Room Air 08/14/17 04:00 Room Air 08/14/17 00:00 Room Air 08/13/17 23:41 37.0 82 20 102/68 (79) 95 Room Air Review Cardiovascular: regular rate, rhythm, no edema, no gallop, no JVD, no murmur, normal peripheral pulses Abdomen: normal bowel sounds, non tender, soft, no organomegaly, no pulsatile mass Lungs: chest non-tender, lungs clear, normal breath sounds, no respiratory distress, no accessory muscle use Airway Class: II Pre-Sedation Airway Assessment Oral Cavity: WNL Able to Visualize Vocal Cords: Yes Short Thick Neck: No Hx of Sleep Apnea: No Smoking Status: Current Every Day Smoker Mallampati Classification: Class I ASA Classification: Class II Procedure Planning Contraindications-for Mod Sed: None Notes The planned sedation has been discussed with the patient and consent obtained. I have identified the patient, determined the appropriateness of sedation and have assessed the patient immediately prior to the procedure. All medicine(s) and interventions are by my order.
[2017-08-14] MEDS ORDERED: SODIUM CHLORIDE 0.9% 1000ML 1,000 ML IV SCH (12:00)
[2017-08-14] MEDS ORDERED: NURSING VERBAL MED ORDER ONE (12:00)
[2017-08-14] MEDS ORDERED: MIDAZOLAM HCL 5 MG/ML 1 ML VIAL IV ONE ×2 (12:15→19:36)
[2017-08-14] MEDS ORDERED: FENTANYL CITRATE INJ 50 MCG/1 ML 2 ML VIAL IV ONE ×2 (12:15→19:36)
--- NOTE | 2017-08-14 12:25 | Procedure Note ---
Procedure Note Date of Service Aug 14, 2017. Procedure Note Bronchoscopy note Indications: Left lower lobe mass Medicines: Versed 4 mg IV and fentanyl 100 g IV, lidocaine nebulizer and lidocaine jelly Complications: No immediate complications Procedure note: After informed consent and timeout, the bronchoscope was introduced to the right nostril and advanced to the tracheobronchial tree. The nasopharynx/oropharynx appeared normal. The larynx appears normal the vocal cords are normal and movement with phonation and breathing. The subglottic space is normal. The trachea is normal caliber and the ewa sharp. The tracheal bronchial tree of the right lung was examined to the subsegmental level. The bronchial mucous and anatomy in the right lung appeared normal. There are no endobronchial lesions. No secretions. The bronchoscope was withdrawn to the ewa. The left main stem was inserted and appeared normal. The left upper lobe showed no endobronchial lesions. The lingula however was erythematous and friable. There appeared to be almost complete obstruction of the inferior segment. The left lower lobe was also examined the subsegmental level. There were no endobronchial lesions seen, but there the mucosa was friable. Endobronchial brushings were performed at the level of the lingula. Transbronchial biopsies and bronchial washings were taken from the left lower lobe and sent for cell count, cytology, histology, bacterial culture, viral smears and culture, fungal and AFB analysis. Patient did have some mild hemoptysis that cleared with cold saline and injection of epinephrine. Postprocedure chest x-ray was ordered. Estimated blood loss was less than 5cc. Impression: Left lingula/lower lobe mass-likely malignant Endobronchial biopsy was performed Hemoptysis Recommendations: Await test results
--- NOTE | 2017-08-14 12:25 | DIAGNOSTIC IMAGING REPORT ---
CHEST 1 VW FRONT-NOT PORTABLE CLINICAL HISTORY: Pulmonary mass. Post bronchoscopy study. COMPARISON STUDY: 08/05/2017 FINDINGS: There is a 3.5 cm left hilar mass. The heart is normal in size. There is no pneumothorax status post bronchoscopy. There is subtle thickening of the interstitial markings.[ IMPRESSION: 1. No evidence of pneumothorax 2. 3.5 cm left hilar mass Electronically signed by: Geoff Elaine M.D. 08/14/2017 12:23 PM Dictated Date/Time: 08/14/2017 12:23 PM
--- NOTE | 2017-08-14 13:55 | Medical Student: [facility] ---
Med Student Progress Note Date of Service Aug 14, 2017. Subjective Pt evaluation today including: conversation w/ patient, conversation w/ family , physical exam, chart review, lab review, review of studies Pt is a 72 yo female with a PMH of high blood pressure and osteoporosis who was sent to the ER yesterday from her PCP's office where an EKG showed she was in atrial fibrillation with RVR. She converted back to NSR with dilt in the ED. In addition, a CXR performed in the ED showed a 3.9 cm spiculated central L lung mass. Cardiology was consulted and suggested treatment with dilt and an anticoagulant indefinitely. Today, a bronchoscopy was performed to evaluate the lung mass. Overnight the patient has been in NSR. Her blood pressures have been a little low. She denies feeling lightheaded but does note she feels weak since being admitted. She notes anxiety over the lung mass. Her cough has improved following the bronchoscopy. The patient wishes to go home today. Review of Systems Constitutional: + weakness (generalized from laying in hospital bed), No fever , No chills, No sweats Respiratory: + cough, + sputum (blood tinged following bronchoscopy), No wheezing, No shortness of breath Cardiac: No chest pain (resolved. ), No palpitations Abdomen: No pain, No nausea, No vomiting, No diarrhea, No constipation Female : No dysuria, No urinary frequency Skin: No rash, No itch Objective Vital Signs Date Time Temp Pulse Resp B/P (MAP) Pulse Ox O2 Delivery O2 Flow Rate FiO2 08/14/17 13:15 36.9 85 18 118/65 (82) 98 Nasal Cannula 4.0 08/14/17 12:41 36.6 87 18 116/69 (85) 97 Nasal Cannula 4.0 08/14/17 12:22 86 22 105/43 94 Nasal Cannula 4.0 08/14/17 12:10 90 20 123/54 95 Nasal Cannula 4.0 08/14/17 12:02 Mask 08/14/17 12:00 Room Air 08/14/17 12:00 87 18 117/45 98 Nasal Cannula 4.0 08/14/17 11:50 86 20 115/49 96 Mask 4.0 08/14/17 11:45 86 20 114/47 99 Mask 8.0 08/14/17 11:40 89 20 115/61 96 Mask 8.0 08/14/17 11:35 89 20 126/59 96 Mask 8.0 08/14/17 11:30 88 20 118/46 97 Mask 8.0 08/14/17 11:25 82 16 107/52 97 Mask 8.0 08/14/17 11:20 83 16 130/49 96 Mask 4.0 08/14/17 11:15 84 22 148/68 97 Mask 4.0 08/14/17 11:10 99 22 86/62 97 Mask 4.0 08/14/17 11:05 78 14 111/74 98 Mask 4.0 08/14/17 11:00 86 16 142/78 97 Mask 4.0 08/14/17 10:55 82 18 128/58 100 Mask 4.0 08/14/17 10:50 90 20 157/93 100 Mask 4.0 08/14/17 10:45 86 20 142/76 100 Mask 4.0 08/14/17 10:40 86 18 110/93 100 Mask 4.0 08/14/17 08:00 Room Air 08/14/17 07:23 36.7 82 16 118/51 (73) 96 Room Air 08/14/17 06:09 36.7 78 20 102/63 96 08/14/17 04:00 36.7 78 20 102/63 (76) 96 Room Air 08/14/17 04:00 Room Air 08/14/17 00:00 Room Air 08/13/17 23:41 37.0 82 20 102/68 (79) 95 Room Air 08/13/17 20:00 96 Room Air 08/13/17 20:00 36.6 94 18 125/75 (92) 94 Room Air 08/13/17 19:37 89 08/13/17 19:23 88 20 123/102 96 08/13/17 18:25 89 18 156/85 97 Room Air 08/13/17 17:50 97 Room Air 08/13/17 17:35 100 08/13/17 16:25 96 20 160/73 97 Room Air 08/13/17 14:37 163 08/13/17 14:30 96 Room Air 08/13/17 14:30 96 Room Air 08/13/17 14:30 36.6 147 20 115/74 96 Room Air Physical Exam General Appearance: WD/WN, no apparent distress (sitting up in bed. ) ENT: hearing grossly normal, pharynx normal Neck: supple, no adenopathy, no JVD Respiratory/Chest: no respiratory distress, no accessory muscle use, + crackles Cardiovascular: regular rate, rhythm, no edema, no murmur Abdomen: normal bowel sounds, non tender, soft, no organomegaly Extremities: normal inspection, no pedal edema, no calf tenderness Neurologic/Psychiatric: alert, normal mood/affect, oriented x 3 Skin: normal color, warm/dry, no rash Laboratory Results Last 24 Hours Test 08/13/17 15:09 08/14/17 09:14 White Blood Count 14.85 K/uL Red Blood Count 4.48 M/uL Hemoglobin 14.3 g/dL Hematocrit 42.0 % Mean Corpuscular Volume 93.8 fL Mean Corpuscular Hemoglobin 31.9 pg Mean Corpuscular Hemoglobin Concent 34.0 g/dl Platelet Count 314 K/uL Mean Platelet Volume 9.6 fL Neutrophils (%) (Auto) 88.9 % Lymphocytes (%) (Auto) 4.1 % Monocytes (%) (Auto) 6.3 % Eosinophils (%) (Auto) 0.3 % Basophils (%) (Auto) 0.1 % Neutrophils # (Auto) 13.20 K/uL Lymphocytes # (Auto) 0.61 K/uL Monocytes # (Auto) 0.93 K/uL Eosinophils # (Auto) 0.05 K/uL Basophils # (Auto) 0.02 K/uL RDW Standard Deviation 46.6 fL RDW Coefficient of Variation 13.8 % Immature Granulocyte % (Auto) 0.3 % Immature Granulocyte # (Auto) 0.04 K/uL D-Dimer 390 ug/L FEU Sodium Level 133 mmol/L Potassium Level 3.9 mmol/L Chloride Level 102 mmol/L Carbon Dioxide Level 21 mmol/L Anion Gap 10.0 mmol/L Blood Urea Nitrogen 15 mg/dl Creatinine 0.99 mg/dl Est Creatinine Clear Calc Drug Dose 37.9 ml/min Estimated GFR () 66.0 Estimated GFR (Non- 56.9 BUN/Creatinine Ratio 14.9 Random Glucose 118 mg/dl Estimated Average Glucose 103 mg/dl Hemoglobin A1c 5.2 % Calcium Level 9.1 mg/dl Magnesium Level 2.2 mg/dl Total Bilirubin 0.6 mg/dl Direct Bilirubin 0.1 mg/dl Aspartate Amino Transf (AST/SGOT) 18 U/L Alanine Aminotransferase (ALT/SGPT) 15 U/L Alkaline Phosphatase 77 U/L Total Creatine Kinase 43 U/L Creatine Kinase MB 0.6 ng/ml Creatine Kinase MB Ratio 1.4 Troponin I < 0.015 ng/ml Total Protein 8.0 gm/dl Albumin 3.5 gm/dl Prothrombin Time 12.1 SECONDS Prothromb Time International Ratio 1.1 Activated Partial Thromboplast Time 31.5 SECONDS Partial Thromboplastin Ratio 1.2 Assessment and Plan Assessment and Plan: A. Flutter with RVR -Per Cardiology - Cardizem 30mg PO 3x daily --> convert to Extended release at d /c. -Begin anticoagulation with Xarelto 20 mg q day. -Restart ASA 81 mg following bronchoscopy -hold home lisinopril 10 mg as BPs have been low inpt. Left Lung Mass -Bronchoscopy completed today. -Pt remains with cough -Pulm Consult -Smoking Cessation team consult Anxiety -Xanax 0.5 mg q AM Arthritis -Methotrexate 10 mg PO weekly as outpatient Osteoporosis -Fosamax weekly
[2017-08-14] MEDS ORDERED: XRL20 PO (14:06)
[2017-08-14] MEDS ORDERED: DLCSR120 PO (14:06)
--- NOTE | 2017-08-14 14:09 | Discharge Instructions ---
Discharge Instructions Date of Service Aug 14, 2017. Admission Reason for Admission: Atrial Fibrillation With Rvr, Mass Of Lt Lung Discharge Discharge Diagnosis / Problem: Atrial Fibrillation With Rvr, Mass Of Lt Lung Discharge Goals Goal(s): Diagnostic testing, Therapeutic intervention Activity Recommendations Activity Limitations: resume your previous activity start both Rx tomorrow 08/15 . Current Hospital Diet Patient's current hospital diet: Discharge Diet Recommended Diet: Regular Diet Pending Studies Studies pending at discharge: yes List of pending studies: biopsy of lung results Laboratory Results Hemoglobin A1c Test 08/13/17 15:09 Range/Units Estimated Average Glucose 103 mg/dl Hemoglobin A1c 5.2 4.5-5.6 % Medical Emergencies . Who to Call and When: Medical Emergencies: If at any time you feel your situation is an emergency, please call 911 immediately. . Non-Emergent Contact Non-Emergency issues call your: Primary Care Provider, Manager Banking Call Non-Emergent contact if: temperature is above 101, your pain is unusual for you . . "Provider Documentation" section prepared by Red Aldana. . VTE Core Measure Inpt VTE Proph given/why not?: Other Anticoagulation, SCD's
[2017-08-14] MEDS ORDERED: DILTIAZEM HCL 30 MG TAB PO ONE ×2 (16:01→19:00)
[2017-08-14] MEDS ORDERED: CRDCD180 PO (16:05)
[2017-08-14] MEDS ORDERED: DILTIAZEM BOLUS / DRIP IV STA (16:51)
[2017-08-14] MEDS ORDERED: DIGOXIN IV 250 MCG in SYRINGE 9 ML IV ONE (17:00)
[2017-08-14] MEDS ORDERED: DILTIAZEM HCL INJ 125 MG in DEXTROSE 5% 100ML IV PRN (17:15)
[2017-08-14] MEDS ORDERED: DILTIAZEM HCL 5 MG/ML 5 ML VIAL IV SCH (17:15)
--- NOTE | 2017-08-14 17:25 | Progress Note ---
Subjective Date of Service: Aug 14, 2017. Subjective this pt feels well but is having bouts of paf, now going in and out Problem List Medical Problems: (1) Precordial chest pain Status: Acute Review of Systems Constitutional: No fever, No chills Respiratory: No cough Objective Vital Signs Date Time Temp Pulse Resp B/P (MAP) Pulse Ox O2 Delivery O2 Flow Rate FiO2 08/14/17 14:00 36.5 90 18 125/74 (91) 92 Room Air 08/14/17 13:15 36.9 85 18 118/65 (82) 98 Nasal Cannula 4.0 08/14/17 12:41 36.6 87 18 116/69 (85) 97 Nasal Cannula 4.0 08/14/17 12:22 86 22 105/43 94 Nasal Cannula 4.0 08/14/17 12:10 90 20 123/54 95 Nasal Cannula 4.0 08/14/17 12:02 Mask 08/14/17 12:00 Room Air 08/14/17 12:00 87 18 117/45 98 Nasal Cannula 4.0 08/14/17 11:50 86 20 115/49 96 Mask 4.0 08/14/17 11:45 86 20 114/47 99 Mask 8.0 08/14/17 11:40 89 20 115/61 96 Mask 8.0 08/14/17 11:35 89 20 126/59 96 Mask 8.0 08/14/17 11:30 88 20 118/46 97 Mask 8.0 08/14/17 11:25 82 16 107/52 97 Mask 8.0 08/14/17 11:20 83 16 130/49 96 Mask 4.0 08/14/17 11:15 84 22 148/68 97 Mask 4.0 08/14/17 11:10 99 22 86/62 97 Mask 4.0 08/14/17 11:05 78 14 111/74 98 Mask 4.0 08/14/17 11:00 86 16 142/78 97 Mask 4.0 08/14/17 10:55 82 18 128/58 100 Mask 4.0 08/14/17 10:50 90 20 157/93 100 Mask 4.0 08/14/17 10:45 86 20 142/76 100 Mask 4.0 08/14/17 10:40 86 18 110/93 100 Mask 4.0 08/14/17 08:00 Room Air 08/14/17 07:23 36.7 82 16 118/51 (73) 96 Room Air 08/14/17 06:09 36.7 78 20 102/63 96 08/14/17 04:00 36.7 78 20 102/63 (76) 96 Room Air 08/14/17 04:00 Room Air 08/14/17 00:00 Room Air 08/13/17 23:41 37.0 82 20 102/68 (79) 95 Room Air 08/13/17 20:00 96 Room Air 08/13/17 20:00 36.6 94 18 125/75 (92) 94 Room Air 08/13/17 19:37 89 08/13/17 19:23 88 20 123/102 96 08/13/17 18:25 89 18 156/85 97 Room Air 08/13/17 17:50 97 Room Air 08/13/17 17:35 100 Physical Exam General Appearance: WD/WN, + mild distress Respiratory/Chest: chest non-tender, lungs clear, normal breath sounds Cardiovascular: no murmur, + tachycardia, + irregularly irregular Abdomen: normal bowel sounds, non tender, soft Extremities: no pedal edema, no calf tenderness Neurologic/Psychiatric: alert, oriented x 3 Laboratory Results Last 24 Hours Test 08/14/17 09:14 Prothrombin Time 12.1 SECONDS Prothromb Time International Ratio 1.1 Activated Partial Thromboplast Time 31.5 SECONDS Partial Thromboplastin Ratio 1.2 Assessment and Plan 72 F with PAF with RVR and lung mass Atrial flutter with RVR--will increase diltiazem to 180 a day and given one dose digoxin inpatient, start xarelto 08/15 and Hold lisinopril 10 mg by mouth daily. restart aspirin Left hilar mass 3.6 x 3.0 cm--bronch and brushed/biopsy Tobacco use disorder--counselled regarding cessation Anxiety--l alprazolam. Lorazepam 0.5 mg IV every 6 hours when necessary. Arthritis--Methotrexate as an outpatient.
[2017-08-14] MEDS ORDERED: CONSULT PHARMACY STA (18:40)
[2017-08-14] MEDS ORDERED: LIDOCAINE 4% W/AFRIN NASAL SOLN 4ML ONE (19:36)
[2017-08-14] MEDS ORDERED: LIDOCAINE HCL 2% LOCAL 50ML VIAL INFIL ONE (19:36)
[2017-08-14] MEDS ORDERED: EpINEphrine INJ 1MG/ML AMP 1 MG/ML AMP IV ONE (19:36)
[2017-08-15] MEDS ORDERED: DIGOXIN IV 250 MCG in SYRINGE 9 ML IV ONE (01:00)
--- NOTE | 2017-08-18 15:44 | Discharge Summary ---
Discharge Summary Date of Service Aug 18, 2017. Discharge Summary Admission Date: Aug 13, 2017 at 18:41 Discharge Date: Aug 14, 2017 Discharge Disposition: Home Principal Diagnosis: afib rvr, lung mass Immunizations: Have You Had Influenza Vaccine: Unknown History of Tetanus Vaccine?: Unknown History of Pneumococcal: Unknown History of Hepatitis B Vaccine: Unknown Medication Reconciliation Continued Medications: Acetaminophen (Tylenol) 500 Mg Tab 1000 MG PO PRN UD, TAB Alendronate/Cholecalciferol (Fosamax+D 70MG/2800 Iu) 70 Mg Tab 1 TABLET PO WK, TAB TAKE ON MONDAYS Alprazolam (Xanax) 0.5 Mg Tab 0.5 MG PO QAM, 0 Refills Aspirin Enteric Coated (Ecotrin Or Generic) 81 Mg Tab 81 MG PO DAILY, TAB Biotin (Biotin) 1,000 Mcg Tab 1 TAB PO DAILY Calcium Carbonate-Vitamin D W/ (Caltrate 600 Plus) 1 Tab Tab 1 TAB PO DAILY, TAB Cyanocobalamin (Vitamin B-12) 100 Mcg Tab 500 MCG PO DAILY, TAB Fish Oil ([place]-3) 1 Ea Cap 1200 MG PO DAILY, CAP Folic Acid (Folvite) 1 Mg Tab 1 MG PO DAILY, TAB Methotrexate (Methotrexate) 2.5 Mg Tab 10 MG PO WK, TAB TAKES ON TUESDAYS Multiple Vitamins W/ Minerals (Macular Health Formula) 1 Cap Cap 1 CAP PO DAILY Discontinued Medications: Lisinopril (Zestril) 10 Mg Tab 10 MG PO DAILY, TAB Discharge Exam Review of Systems: Respiratory: + cough, + sputum Physical Exam: General Appearance: WD/WN, + mild distress Respiratory/Chest: lungs clear, normal breath sounds Cardiovascular: regular rate, rhythm, no murmur Hospital Course 72 F with PAF with RVR and lung mass Atrial flutter with RVR--will increase diltiazem to 180 a day and given one dose digoxin inpatient, start xarelto 08/15 and Hold lisinopril 10 mg by mouth daily. restart aspirin Left hilar mass 3.6 x 3.0 cm--bronch and brushed/biopsy, will need outpt follow up with pulmonary med Tobacco use disorder--counselled regarding cessation Anxiety--l alprazolam. Arthritis--Methotrexate as an outpatient. Total Time Spent: Greater than 30 minutes This includes examination of the patient, discharge planning, medication reconciliation, and communication with other providers. Discharge Instructions Please refer to the electronic Patient Visit Report (Discharge Instructions) for additional information.
== END 2017-08-14 19:37 | disposition home or self-care (01) | DRG 264 ==
LOC: EDBD 14:26 → C.EDC 14:28 → C.MED 18:41 → ENRESERV 19:03 → CANBEDREQ 08-14 17:34
PROVIDERS: ADMIT Hospitalist; ATTEND Internal Medicine
PROC: 0BBJ8ZX Excision of Left Lower Lung Lobe, Via Natural or Artificial Opening Endoscopic, Diagnostic (ICD-10-PCS; principal; 2017-08-14)
PROC: 0BB98ZX Excision of Lingula Bronchus, Via Natural or Artificial Opening Endoscopic, Diagnostic (ICD-10-PCS; principal; 2017-08-14)
PROC: 0BBB8ZX Excision of Left Lower Lobe Bronchus, Via Natural or Artificial Opening Endoscopic, Diagnostic (ICD-10-PCS; principal; 2017-08-14)
DX: I48.92 Unspecified atrial flutter (principal); C34.92 Malignant neoplasm of unspecified part of left bronchus or lung; I48.0 Paroxysmal atrial fibrillation; M06.9 Rheumatoid arthritis, unspecified; I11.9 Hypertensive heart disease without heart failure; J44.9 Chronic obstructive pulmonary disease, unspecified; F41.9 Anxiety disorder, unspecified; E78.5 Hyperlipidemia, unspecified; F17.200 Nicotine dependence, unspecified, uncomplicated; Z79.899 Other long term (current) drug therapy; Z79.82 Long term (current) use of aspirin; Z82.49 Family history of ischemic heart disease and other diseases of the circulatory system

== ENCOUNTER 2017-08-16 11:57 | Emergency (ER) | payer BC, OTHER ==
[~2017-08-16] VITALS: Ht 149.9 cm; Wt 53.3 kg
[~2017-08-16 11:57] MED LIST changes: +ACET-1256 PO; -BIOT1CAP4 PO; +BIOT1TAB5 PO; -CALCTAB5 PO; +CALCTAB7 PO; +CRDCD180 PO; +DLCSR120 PO; -FLV1 PO; +FOLI1TAB7 PO; +FSMD/70 PO; -MACUHEALTH PO; +MULT1CAP53 PO; -PYR50 PO; -VTMD1000 PO; +XRL20 PO
[2017-08-16 12:00] VITALS: TEMP 36.5; Ht 149.9 cm; Wt 53.3 kg
[2017-08-16 12:20] VITALS: O2SAT 96
[2017-08-16 12:40] LABS: BASO % 0.5 %; BASO ABS # 0.04 K/uL (0-0.2); COMPLETE YES; EOS % 3.4 %; HEMATOCRIT 34.2 % (37-47); IG% 0.4 %; LYMPH % 14.5 %; LYMPH ABS # 1.15 K/uL (1.2-3.4); MEAN CELL VOLUME 93.7 fL (80-100); MEAN CORPUSCULAR HEMOGLOBIN 33.4 pg (25-34); MEAN CORPUSCULAR HGB CONC 35.7 g/dl (32-36); MEAN PLATELET VOLUME 9.5 fL (7.4-10.4); MONO % 9.5 %; NEUT % 71.7 %; PLATELET COUNT 317 K/uL (130-400); RED BLOOD COUNT 3.65 M/uL (4.2-5.4); WHITE BLOOD COUNT 7.92 K/uL (4.8-10.8)
[2017-08-16] MEDS ORDERED: DILT-113 PO (12:43)
[2017-08-16] MEDS ORDERED: RIVA1TAB4 PO (12:43)
--- NOTE | 2017-08-16 12:56 | DIAGNOSTIC IMAGING REPORT ---
CHEST ONE VIEW PORTABLE HISTORY: 72 years-old Female Chest Pain acute atypical chest pain COMPARISON: Chest radiograph 08/14/2017, CTA of the chest 08/13/2017 TECHNIQUE: Portable upright AP view of the chest FINDINGS: Left hilar mass redemonstrated measuring up to 3.7 cm. Cardiac silhouette is within normal limits. There is atherosclerosis of the aorta. No pneumothorax, pleural effusion or significant postobstructive pneumonitis. The bones appear grossly intact. IMPRESSION: Left hilar mass redemonstrated with otherwise unremarkable chest. The above report was generated using voice recognition software. It may contain grammatical, syntax or spelling errors. Electronically signed by: Junior Rocha M.D. 08/16/2017 12:55 PM Dictated Date/Time: 08/16/2017 12:53 PM
[2017-08-16 12:57] LABS: BLOOD UREA NITROGEN 10 mg/dl (7-18); BUN/CREATININE RATIO 13.7 (10-20); CALCIUM 8.4 mg/dl (8.5-10.1); CARBON DIOXIDE 22 mmol/L (21-32); CHLORIDE 108 mmol/L (98-107); CREATININE 0.74 mg/dl (0.60-1.20); GLUCOSE 140 mg/dl (70-99); POTASSIUM 3.5 mmol/L (3.5-5.1); SODIUM 141 mmol/L (136-145)
[2017-08-16 13:02] LABS: CKMB/CK RATIO 2.6 (0-3.0)
[2017-08-16 13:07] LABS: INR 1.4 (0.9-1.1); PROTHROMBIN TIME (PATIENT) 15.6 SECONDS (9.0-12.0)
[2017-08-16 15:12] VITALS: BP 150/93; PULSE 89; O2SAT 94
[2017-08-16] MEDS ORDERED: BENZ100C18 PO (15:45)
--- NOTE | 2017-08-16 19:06 | EMERGENCY ROOM VISIT NOTE ---
History Report prepared by Tiesha: Judith Campos Under the Supervision of: Dr. Toni Polk D.O. First contact with patient: 12:13 Chief Complaint: RESPIRATORY PROBLEMS Stated Complaint: WHEEZING, SOB History of Present Illness The patient is a 72 year old female who presents to the Emergency Room with complaints of persistent SOB starting 3 days ago. She was sent to the ED after speaking with a doctor over the phone. The patient was seen in the ED 3 days ago with chest pain. She was admitted and discharged 2 days ago. She was feeling better at the time of discharge. She had some cough at the time. By the end of the day, she had more coughing and wheezing. She had some hemoptysis. She was having difficulty walking across her living room. Since then her coughing and wheezing has improved. Her hemoptysis has also improved. Her shortness of breath is also improved as well. She had a very small amount of blood when coughing today. Pt denies abdominal pain, chest pain, nausea, vomiting, diarrhea, dysuria, weight gain, SOB with lying flat. She started Xarelto yesterday for a fib. Source of History: patient Onset: 3 days ago Position: other (global) Quality: other (SOB) Timing: other (persistent) Associated Symptoms: + cough, No chest pain, No nausea, No vomiting, No abdominal pain, No diarrhea, No urinary symptoms Note: Pt reports hemoptysis, wheezing. Pt denies weight gain, SOB with lying flat. Review of Systems See HPI for pertinent positives & negatives. A total of 10 systems reviewed and were otherwise negative. Past Medical & Surgical Medical Problems: (1) Arthritis (2) Atrial fibrillation with RVR (3) Mass of left lung Family History No pertinent family history stated. Social History Smoking Status: Former Smoker Drug Use: none Marital Status: Occupation Status: retired Current/Historical Medications Scheduled Acetaminophen (Tylenol), 1,000 MG PO PRN UD Alendronate/Cholecalciferol (Fosamax+D 70MG/2800 Iu), 1 TABLET PO WK Alprazolam (Xanax), 0.5 MG PO QAM Aspirin Enteric Coated (Ecotrin Or Generic), 81 MG PO DAILY Benzonatate (Tessalon Perles), 100 MG PO TID Biotin (Biotin), 1 TAB PO DAILY Calcium Carbonate-Vitamin D W/ (Caltrate 600 Plus), 1 TAB PO DAILY Cyanocobalamin (Vitamin B-12), 500 MCG PO DAILY Diltiazem Hcl Ext Rel (Tiazac), 180 MG PO DAILY Fish Oil ([place]-3), 1,200 MG PO DAILY Folic Acid (Folvite), 1 MG PO DAILY Methotrexate (Methotrexate), 10 MG PO WK Multiple Vitamins W/ Minerals ([employer] Formula), 1 CAP PO DAILY Rivaroxaban (Xarelto), 20 MG PO DAILY Allergies Coded Allergies: No Known Allergies (Unverified , 09/07/14) Physical Exam Vital Signs Date Time Temp Pulse Resp B/P (MAP) Pulse Ox O2 Delivery O2 Flow Rate FiO2 08/16/17 15:12 89 20 150/93 94 Room Air 08/16/17 13:43 97 18 141/78 95 Room Air 08/16/17 12:32 83 08/16/17 12:20 96 Room Air 08/16/17 12:00 36.5 78 17 158/74 94 Room Air Physical Exam GENERAL: sitting up in bed, talking in full sentences, no acute distress, nontoxic. EYE EXAM: normal conjunctiva, PERRL and EOM's grossly intact OROPHARYNX: no exudate, no erythema, lips, buccal mucosa, and tongue normal and mucous membranes are moist NECK: supple, no nuchal rigidity, no adenopathy, non-tender, no JVD LUNGS: Clear to auscultation. Normal chest wall mechanics HEART: irregularly irregular, no murmurs, S1 normal and S2 normal ABDOMEN: abdomen soft, non-tender, normo-active bowel sounds, no masses, no rebound or guarding. BACK: Back is symmetrical on inspection and there is no deformity, no midline tenderness, no CVA tenderness. SKIN: no rashes and no bruising UPPER EXTREMITIES: upper extremities are grossly normal. LOWER EXTREMITIES: No pitting edema. Calves equal bilaterally. NEURO EXAM: Normal sensorium, cranial nerves II-XII grossly intact, normal speech, no gross weakness of arms, no gross weakness of legs. Medical Decision & Procedures ER Provider Diagnostic Interpretation: Radiology results as stated below per my review and the radiologist's interpretation: CHEST ONE VIEW PORTABLE HISTORY: 72 years-old Female Chest Pain acute atypical chest pain COMPARISON: Chest radiograph 08/14/2017, CTA of the chest 08/13/2017 TECHNIQUE: Portable upright AP view of the chest FINDINGS: Left hilar mass redemonstrated measuring up to 3.7 cm. Cardiac silhouette is within normal limits. There is atherosclerosis of the aorta. No pneumothorax, pleural effusion or significant postobstructive pneumonitis. The bones appear grossly intact. IMPRESSION: Left hilar mass redemonstrated with otherwise unremarkable chest. The above report was generated using voice recognition software. It may contain grammatical, syntax or spelling errors. Electronically signed by: Junior Rocha M.D. 08/16/2017 12:55 PM Dictated Date/Time: 08/16/2017 12:53 PM Laboratory Results 08/16/17 12:20 Red Blood Count 3.65, Mean Corpuscular Volume 93.7, Mean Corpuscular Hemoglobin 33.4, Mean Corpuscular Hemoglobin Concent 35.7, Mean Platelet Volume 9.5, Neutrophils (%) (Auto) 71.7, Lymphocytes (%) (Auto) 14.5, Monocytes (%) (Auto) 9.5, Eosinophils (%) (Auto) 3.4, Basophils (%) (Auto) 0.5, Neutrophils # (Auto) 5.68, Lymphocytes # (Auto) 1.15, Monocytes # (Auto) 0.75, Eosinophils # (Auto) 0.27, Basophils # (Auto) 0.04 08/16/17 12:20 Test 08/16/17 12:20 08/16/17 14:30 White Blood Count 7.92 K/uL (4.8-10.8) Red Blood Count 3.65 M/uL (4.2-5.4) Hemoglobin 12.2 g/dL (12.0-16.0) Hematocrit 34.2 % (37-47) Mean Corpuscular Volume 93.7 fL (80-100) Mean Corpuscular Hemoglobin 33.4 pg (25-34) Mean Corpuscular Hemoglobin Concent 35.7 g/dl (32-36) Platelet Count 317 K/uL (130-400) Mean Platelet Volume 9.5 fL (7.4-10.4) Neutrophils (%) (Auto) 71.7 % Lymphocytes (%) (Auto) 14.5 % Monocytes (%) (Auto) 9.5 % Eosinophils (%) (Auto) 3.4 % Basophils (%) (Auto) 0.5 % Neutrophils # (Auto) 5.68 K/uL (1.4-6.5) Lymphocytes # (Auto) 1.15 K/uL (1.2-3.4) Monocytes # (Auto) 0.75 K/uL (0.11-0.59) Eosinophils # (Auto) 0.27 K/uL (0-0.5) Basophils # (Auto) 0.04 K/uL (0-0.2) RDW Standard Deviation 47.1 fL (36.4-46.3) RDW Coefficient of Variation 13.9 % (11.5-14.5) Immature Granulocyte % (Auto) 0.4 % Immature Granulocyte # (Auto) 0.03 K/uL (0.00-0.02) Prothrombin Time 15.6 SECONDS (9.0-12.0) Prothromb Time International Ratio 1.4 (0.9-1.1) Anion Gap 11.0 mmol/L (3-11) Est Creatinine Clear Calc Drug Dose 51.3 ml/min Estimated GFR () 93.8 Estimated GFR (Non- 80.9 BUN/Creatinine Ratio 13.7 (10-20) Calcium Level 8.4 mg/dl (8.5-10.1) Total Creatine Kinase 73 U/L (26-192) Creatine Kinase MB 1.9 ng/ml (0.5-3.6) Creatine Kinase MB Ratio 2.6 (0-3.0) Troponin I < 0.015 ng/ml (0-0.045) Laboratory results per my review. ECG Indication: SOB/dyspnea Rate (beats per minute): 94 Rhythm: other (variable atrial rhythm with a flutter transitioning to SR with bigeminy) Findings: other (normal axis) Change: Repeat EKG shows: SR with sinus arrhythmia, rate 82, normal axis, sinus pause, normal intervals. ED Course ED COURSE: Vital signs were reviewed and showed hypertension. The patients medical record was reviewed The above diagnostic studies were performed and reviewed. ED treatments and interventions as stated above. 1215: The patient was evaluated in room A9B. A complete history and physical examination was performed. 1354: I discussed the patient's case with Dr. Alcaraz, [facility] cardiology. He will look at the EKGs and call back. 1406: Dr. Alcaraz called back after looking at the EKGs. He discussed his findings with me. 1550: Upon reevaluation, the patient is resting comfortably.I discussed my findings with the patient and she understands and agrees with the treatment plan. Based on the patients age, coexisting illnesses, exam and lab findings the decision to treat as an outpatient was made. The patient remained stable while under my care. The patient appeared well at the time of discharge. Medical Decision Differential diagnoses includes but is not limited to pneumonia, bronchitis, COPD/Asthma exacerbation, pneumothorax, pulmonary embolism, congestive heart failure, acute coronary syndrome Patient is a 72-year-old female who comes in for shortness of breath which has been improving since this past Thursday when she was discharged from the hospital. She is on a Xa inhibitor which she has not missed any doses. Hemoptysis has been improving symmetrically. Shortness of breath is improved as well. CBC along with BMP and troponins were negative 2. EKG showed initially an atrial flutter which transitioned following a sinus pause into sinus rhythm. I did discuss these EKGs with on-call assurance senior manager agreed. Did not pursue PE as on Xa. Favor symptoms are likely secondary to the recent biopsy which occurred Thursday morning of the lung mass versus the atrial flutter. She was rate controlled on the ER. Patient was feeling significantly better and discharged follow-up with pulmonology on Thursday. Discussed with Pt concerning signs and symptoms to watch out for. Pt was instructed to follow up with their PCP and discussed with the patient their option to return to the ED at anytime for persistent or worsening symptoms. The appropriate anticipatory guidance and out-patient management, including indications for return to the emergency department, were explained at length to the patient and understood. Medication Reconcilliation Current Medication List: was personally reviewed by me Blood Pressure Screening Patient's blood pressure: Elevated blood pressure Blood pressure disposition: Referred to PCP Consults Time Called: 1324 Consulting Physician: Dr. Alcaraz, [facility] cardiology Returned Call: [phone] I discussed the patient's case with him. He will look at the EKGs and call back. Impression Primary Impression: Dyspnea Additional Impression: Hemoptysis Scribe Attestation The scribe's documentation has been prepared under my direction and personally reviewed by me in its entirety. I confirm that the note above accurately reflects all work, treatment, procedures, and medical decision making performed by me. Departure Information Dispostion Home / Self-Care Prescriptions Benzonatate (TESSALON PERLES) 100 Mg Cap 100 MG PO TID for Cough, #30 CAP Prov: Toni Polk, DO 08/16/17 Referrals RV. Reveles MD (PCP) Forms HOME CARE DOCUMENTATION FORM, IMPORTANT VISIT INFORMATION, WORK / SCHOOL INSTRUCTIONS Patient Instructions ED Afib, ED Dyspnea Shortness of Breath, [facility] Additional Instructions Please follow up with your primary care doctor with in the next 24 hours. Any worsening of your symptoms, please return to the ED immediately. This includes any fevers greater than 100.4, worsening pain, chest pain, shortness breath, persistent nausea, vomiting, unable to eat or drink, or any other concerning signs or symptoms from your standpoint. Problem Qualifiers Primary Impression: Dyspnea Dyspnea type: unspecified Qualified Codes: R06.00 - Dyspnea, unspecified
== END 2017-08-16 15:31 | disposition home or self-care (01) ==
LOC: C.EDB 11:58 → C.EDA 15:31
DX: R06.00 Dyspnea, unspecified (principal); R04.2 Hemoptysis; M19.90 Unspecified osteoarthritis, unspecified site; I48.91 Unspecified atrial fibrillation; Z87.891 Personal history of nicotine dependence; Z79.82 Long term (current) use of aspirin

== ENCOUNTER → 2017-09-01 | Outpatient (CLI) | payer BC ==
[~2017-09-01] MED LIST changes: -CRDCD180 PO; +DILT-113 PO; -DLCSR120 PO; +RIVA1TAB4 PO; -XRL20 PO
[2017-09-01 09:39] LABS: BASO % 0.2 %; BASO ABS # 0.04 K/uL (0-0.2); COMPLETE YES; EOS % 0.4 %; HEMATOCRIT 35.6 % (37-47); IG% 0.3 %; LYMPH % 6.5 %; LYMPH ABS # 1.22 K/uL (1.2-3.4); MEAN CELL VOLUME 94.4 fL (80-100); MEAN CORPUSCULAR HEMOGLOBIN 31.8 pg (25-34); MEAN CORPUSCULAR HGB CONC 33.7 g/dl (32-36); MEAN PLATELET VOLUME 8.9 fL (7.4-10.4); MONO % 6.4 %; NEUT % 86.2 %; PLATELET COUNT 589 K/uL (130-400); RED BLOOD COUNT 3.77 M/uL (4.2-5.4); WHITE BLOOD COUNT 18.63 K/uL (4.8-10.8)
[2017-09-01 09:53] LABS: INR 1.4 (0.9-1.1); PARTIAL THROMBOPLASTIN RATIO 1.7; PROTHROMBIN TIME (PATIENT) 14.7 SECONDS (9.0-12.0)
[2017-09-01 09:56] LABS: ALT/SGPT 14 U/L (12-78); AST/SGOT 11 U/L (15-37); BLOOD UREA NITROGEN 10 mg/dl (7-18); BUN/CREATININE RATIO 16.2 (10-20); CALCIUM 8.4 mg/dl (8.5-10.1); CARBON DIOXIDE 27 mmol/L (21-32); CHLORIDE 99 mmol/L (98-107); CREATININE 0.61 mg/dl (0.60-1.20); GLUCOSE 109 mg/dl (70-99); POTASSIUM 3.1 mmol/L (3.5-5.1); SODIUM 136 mmol/L (136-145)
[2017-09-01 10:07] LABS: ALB/GLOB RATIO 0.5 (0.9-2); ALKALINE PHOSPHATASE 88 U/L (45-117)
== END | disposition home or self-care (01) ==
LOC: C.LAB1850 07:02
PROVIDERS: ATTEND Internal Medicine Critical Care Medicine
DX: E87.1 Hypo-osmolality and hyponatremia (principal); F41.9 Anxiety disorder, unspecified; I48.91 Unspecified atrial fibrillation; J44.9 Chronic obstructive pulmonary disease, unspecified; R05 Cough; R91.8 Other nonspecific abnormal finding of lung field; Z72.0 Tobacco use; C34.90 Malignant neoplasm of unspecified part of unspecified bronchus or lung

== ENCOUNTER 2017-09-02 15:31 | Inpatient (IN) | payer BC, OTHER ==
[~2017-09-02] VITALS: Ht 149.9 cm; Wt 58.1 kg
[~2017-09-02 15:31] MED LIST changes: -AMOX875T PO; -BENZ100C7 PO
[2017-09-02 18:47] VITALS: BP 127/77; PULSE 74; TEMP 36.5; O2SAT 94
[2017-09-02] MEDS ORDERED: MAGNESIUM HYDROXIDE SUSP 30 ML UDC PO PRN (20:00)
[2017-09-02] MEDS ORDERED: ACETAMINOPHEN 325 MG TAB PO PRN (20:00)
[2017-09-02] MEDS ORDERED: ACETAMINOPHEN 500 MG TAB PO PRN (20:00)
[2017-09-02] MEDS ORDERED: ALUMINUM/MAGNESIUM/SIMETH (MAALOX MAX) 30 ML UDC PO PRN (20:00)
[2017-09-02] MEDS ORDERED: ONDANSETRON INJ 2 MG/ML 2 ML VIAL IV PRN (20:00)
[2017-09-02 20:05] VITALS: BP 127/77; PULSE 74; TEMP 36.5; Ht 149.9 cm; Wt 58.1 kg
--- NOTE | 2017-09-02 20:16 | History and Physical ---
History & Physical Date & Time of Service: Sep 02, 2017 at 20:08 Chief Complaint: Empyema Primary Care Physician: RV. Reveles MD History of Present Illness Source: patient This is a 72 yo f with NSCLC that is presenting to us as a direct admit for worsening left pleural effusion and concern for empyema. The patient was following with Dr Worley and a CBC was ordered. She was found to have an elevated WBC count and considering the patient's history Dr Worley called the patient and recommended that she under go a CXR. The CXR reflected a left sided pleural effusion. Due to his concern that with a WBC elevation that patient may have developed an empyema the patient was referred to [facility] for further evaluation and possible thoracentesis. She was given a script for augmentin by Dr Worley but she has not taken any of the medications. She states that her SOB and cough has actually improved and not worsened. She denies any chest pain but has a "stitch in her left side" when she coughs. It is non radiating . Past Medical/Surgical History Medical Problems: (1) Arthritis Status: Chronic Family History FH: myocardial infarction BROTHER Hypertension FATHER MOTHER Social History Smoking Status: Current Every Day Smoker Smokeless Tobacco Use: No Alcohol Use: none Drug Use: none Marital Status: Occupational Status: retired Immunizations History of Influenza Vaccine: Unknown History of Tetanus Vaccine?: Unknown History of Pneumococcal: Unknown History of Hepatitis B Vaccine: Unknown Multi-Drug Resistant Organisms History of MDRO: No Allergies Coded Allergies: No Known Allergies (Unverified , 09/07/14) Home Medications Scheduled Acetaminophen (Tylenol), 1,000 MG PO PRN UD Alendronate/Cholecalciferol (Fosamax+D 70MG/2800 Iu), 1 TABLET PO WK Alprazolam (Xanax), 0.5 MG PO QAM Aspirin Enteric Coated (Ecotrin Or Generic), 81 MG PO DAILY Biotin (Biotin), 1 TAB PO DAILY Calcium Carbonate-Vitamin D W/ (Caltrate 600 Plus), 1 TAB PO DAILY Cyanocobalamin (Vitamin B-12), 500 MCG PO DAILY Diltiazem Hcl Ext Rel (Tiazac), 180 MG PO DAILY Fish Oil (Dulac-3), 1,200 MG PO DAILY Folic Acid (Folvite), 1 MG PO DAILY Methotrexate (Methotrexate), 10 MG PO WK Multiple Vitamins W/ Minerals (Macular Health Formula), 1 CAP PO DAILY Rivaroxaban (Xarelto), 20 MG PO DAILY Review of Systems Constitutional: No fever, No chills, No sweats Eyes: No worsening of vision, No eye pain ENT: No hearing loss Respiratory: + cough, + shortness of breath, No sputum, No wheezing, No dyspnea on exertion, No dyspnea at rest Cardiovascular: No chest pain Abdomen: No pain, No nausea, No vomiting, No diarrhea, No constipation Musculoskeletal: No joint pain, No muscle pain Genitourinary - Female: No dysuria Neurologic: No weakness, No numbness/tingling, No balance problems Psychiatric: No depression symptoms Endocrine: No fatigue Hematologic / Lymphatic: No abnormal bleeding/bruising Integumentary: No rash Physical Exam Vital Signs Date Time Temp Pulse Resp B/P (MAP) Pulse Ox O2 Delivery O2 Flow Rate FiO2 09/02/17 18:47 36.5 74 18 127/77 (94) 94 Room Air General Appearance: no apparent distress Head: normocephalic, atraumatic Eyes: normal inspection ENT: normal ENT inspection Neck: supple Respiratory/Chest: no respiratory distress, no accessory muscle use, + decreased breath sounds (left mid to lower lung) Cardiovascular: regular rate, rhythm, no murmur, normal peripheral pulses Abdomen/GI: normal bowel sounds, non tender, soft Back: no CVA tenderness Extremities/Musculoskelatal: no calf tenderness, + pedal edema (+1 bilat) Neurologic/Psych: alert, normal mood/affect, oriented x 3 Skin: normal color, warm/dry, no rash Lymphatic: no adenopathy Diagnostics Laboratory Results Results Past 24 Hours Test 09/02/17 20:02 Range/Units Diagnostic Radiology [~ rep ct add3]] CHEST 2 VIEWS ROUTINE HISTORY: COPD, LUNG MASS, LEUKOCYTOSIS COMPARISON: Chest 08/16/2017. FINDINGS: Increasing left hilar/perihilar opacity. There is a moderate left pleural effusion and left basilar densities which are new from the prior study. No pneumothorax. Trace right pleural effusion. The heart is normal in size. IMPRESSION: 1. Interval development of a moderate left and trace right pleural effusion. 2. Left hilar/perihilar masslike opacity has increased in size. 3. Left basilar densities favor atelectasis from the pleural effusion. Impression Assessment and Plan This is a 72 yo f with a history of NSCLC and a left pleural effusion concerning for empyema. Will cover potential infection with Zosyn at this time. Patient was assessed for CVS risk factors and patient has no history of MO/ stroke. She has no history of DM however patient is a smoker. CVS risk assess RCRI for this patient is 0 points; 0.4% risk of major cardiac event or 0.9% if surgery requirement is intrathoracic - will order EKG considering A fibb history however currently rate controlled - Patient is an appropriate candidate for surgery Left pleural effusion secondary to NSCLC and concerning for empyema - tele admission - repeat CBC, INR, PTT, CMP - Consult pulm and thoracic surg - gram stain from sputum - Zosyn - smoking cessation consult - incentive issa - npo after midnight A fibb with RVR - Diltiazem cont'd - Xarelto held in anticipation for potential thoracentesis RA - continue methotrexate - Tylenol for pain control Anxiety - Xanax cont'd DVT Prophylaxis Inna, LUZ MARIA .Attending Addendum: I have physically seen this patient, have directed the residents medical activities, and agree with the H&P as noted above with the following exceptions as noted. Assessment and Plan: Left pleural effusion/NSCLC/possible empyema-- Admitted to the telemetry unit for close oxygen monitoring. Zosyn 3.375 mg IV every 8 hours. Sputum Gram stain and culture. Serial laboratories. Consult pulmonology and thoracic surgery Nothing by mouth after midnight for possible procedure. Atrial flutter with RVR-- Continue diltiazem. Hold Xarelto for possible procedure. Anxiety-- Continue Xanax. Rheumatoid arthritis-- Hold methotrexate until determined no active infection. Level of Care Telemetry Advanced Directives Existing Advance Directive: No Existing Living Will: No Existing Power of Java Web Architect: No Resuscitation Status FULL RESUSCITATION VTE Prophylaxis VTE Risk Assessment Done? Y/N: Yes Risk Level: Moderate Given or contraindicated: Other Anticoagulation Social Service Consult Cancer Patient Under TX Note Total Time: Critical Care 30 - 74 minutes Additional Copies To RV. Reveles MD
[2017-09-02 20:27] LABS: BASO % 0.1 %; BASO ABS # 0.02 K/uL (0-0.2); COMPLETE YES; EOS % 0.1 %; HEMATOCRIT 30.9 % (37-47); IG% 0.4 %; LYMPH % 4.5 %; LYMPH ABS # 0.72 K/uL (1.2-3.4); MEAN CELL VOLUME 91.7 fL (80-100); MEAN CORPUSCULAR HEMOGLOBIN 31.2 pg (25-34); MEAN PLATELET VOLUME 8.5 fL (7.4-10.4); MONO % 3.4 %; NEUT % 91.5 %; PLATELET COUNT 518 K/uL (130-400); RED BLOOD COUNT 3.37 M/uL (4.2-5.4); WHITE BLOOD COUNT 15.97 K/uL (4.8-10.8)
[2017-09-02 20:30] VITALS: O2SAT 94
[2017-09-02 20:39] LABS: INR 1.3 (0.9-1.1); PARTIAL THROMBOPLASTIN RATIO 1.5
[2017-09-02 20:47] LABS: BUN/CREATININE RATIO 24.8 (10-20); CALCIUM 8.4 mg/dl (8.5-10.1); CREATININE 0.63 mg/dl (0.60-1.20); POTASSIUM 3.5 mmol/L (3.5-5.1)
[2017-09-02 20:50] LABS: ALB/GLOB RATIO 0.5 (0.9-2)
[2017-09-02] MEDS ORDERED: INFLUENZA VACCINE HIGH DOSE 65+ 0.5 ML SYR IM. ONE (21:30)
[2017-09-02] MEDS ORDERED: PIPERACILL/TAZOBAC IV 3.375 GM in DEXTROSE 5% 100ML IV ONE (21:30)
[2017-09-02] MEDS ORDERED: INFLUENZA ADMINISTRATION CHARGE ONE (21:30)
[2017-09-02] MEDS: BENZONATATE 100MG CAP PO SCH (21:43)
[2017-09-02 22:57] VITALS: BP 133/76; PULSE 81; TEMP 36.6; O2SAT 94
[2017-09-03 04:07] VITALS: BP 121/69; PULSE 90; TEMP 37.1; O2SAT 95
[2017-09-03] MEDS: PIPERACILL/TAZOBAC IV 3.375 GM in DEXTROSE 5% 100ML 100 ML IV SCH ×3 (04:43→21:34)
[2017-09-03 06:37] LABS: BASO % 0.2 %; BASO ABS # 0.02 K/uL (0-0.2); COMPLETE YES; EOS % 0.5 %; HEMATOCRIT 32.2 % (37-47); IG% 0.2 %; LYMPH % 8.2 %; LYMPH ABS # 1.04 K/uL (1.2-3.4); MEAN CELL VOLUME 91.5 fL (80-100); MEAN CORPUSCULAR HEMOGLOBIN 31.5 pg (25-34); MEAN CORPUSCULAR HGB CONC 34.5 g/dl (32-36); MEAN PLATELET VOLUME 8.3 fL (7.4-10.4); MONO % 3.7 %; NEUT % 87.2 %; PLATELET COUNT 531 K/uL (130-400); RED BLOOD COUNT 3.52 M/uL (4.2-5.4); WHITE BLOOD COUNT 12.66 K/uL (4.8-10.8)
--- NOTE | 2017-09-03 06:58 | DIAGNOSTIC IMAGING REPORT ---
CHEST ONE VIEW PORTABLE CLINICAL HISTORY: Left pleural effusion COMPARISON STUDY: 09/02/2017 FINDINGS: There is a persistent left pleural effusion. There is a left perihilar masslike opacity. Left lower lobe airspace opacities remain similar to the preceding study. The right lung remains clear. There is a trace right pleural effusion.[ IMPRESSION: 1. No change from the preceding study. Persistent left perihilar masslike opacity. Moderate left pleural effusion and trace right pleural effusion Electronically signed by: Geoff Elaine M.D. 09/03/2017 6:57 AM Dictated Date/Time: 09/03/2017 6:55 AM
[2017-09-03] MEDS: BENZONATATE 100MG CAP PO SCH ×3 (07:27→21:00)
[2017-09-03] MEDS: CEROVITE ADV FORMULA TAB PO SCH (07:27)
[2017-09-03] MEDS: CYANOCOBALAMIN 500 MCG TAB (VIT B-12) PO SCH (07:27)
[2017-09-03] MEDS: ASPIRIN 81 MG ECTAB PO SCH (07:27)
[2017-09-03] MEDS: CALCIUM 600MG + VIT D 400 IU TAB PO SCH (07:27)
[2017-09-03] MEDS: DILTIAZEM HCL (TIAzac) 180 MG CAPCR PO SCH (07:28)
[2017-09-03] MEDS: OMEGA-3 (PURIFIED FISH OIL) 1 GM CAP PO SCH (07:28)
[2017-09-03 07:43] VITALS: BP 136/76; PULSE 88; TEMP 37.1; O2SAT 93
[2017-09-03] MEDS: ALPRAZOLAM 0.5 MG TAB PO SCH (08:06)
[2017-09-03] MEDS ORDERED: RIVAROXABAN 10 MG TAB PO SCH (09:00)
[2017-09-03] MEDS ORDERED: NON-FORMULARY MEDICATION (Biotin 1 TAB) PO SCH (09:00)
--- NOTE | 2017-09-03 09:21 | DIAGNOSTIC IMAGING REPORT ---
CHEST ONE VIEW PORTABLE CLINICAL HISTORY: thoracentesis COMPARISON STUDY: 09/03/2017 FINDINGS: The cardiac and mediastinal contours remain stable. There is a 3.5 cm left perihilar mass. The patient is status post a thoracentesis with interval decrease in the size of a left pleural effusion. A minimal loculated left basilar pneumothorax cannot be excluded. There are left basilar atelectatic changes. There is a trace right pleural effusion.[ IMPRESSION: Equivocal minor loculated left basilar pneumothorax. Significant interval decrease in the size of left pleural effusion status post thoracentesis Electronically signed by: Geoff Elaine M.D. 09/03/2017 9:20 AM Dictated Date/Time: 09/03/2017 9:19 AM
--- NOTE | 2017-09-03 09:22 | Pulmonary Consultation ---
History General Date of Service: Sep 03, 2017. Stated Complaint: Leukocytosis, Pleural Effusion HPI Patient is a 72 yo male admitted to the hospital for concerns of left-sided pleural effusion, leukocytosis, and non-small cell lung carcinoma. The patient has previously been seen by Dr. Worley and Dr. Alvarado. She did undergo bronchoscopic evaluation on 08/14/[address] Alvarado which noted non-small cell lung CA via cytology brushing. The patient is planned to have an EBUS w/ENB next week by Dr. Worley to further evaluate stage of her non-small cell. She has been experiencing a non-productive cough but otherwise has been feeling relatively well. She is having some mild pain in the left chest post- thoracentesis. Patient will require cardiac clearance prior to EBUS procedure as well. Discussed this patient with Dr. Zimmer and Riley Vuong PA-C from thoracic surgery as well. Patient does have a PET/CT scan pending at this time. CXR from yesterday and today noted right-sided pleural effusion with opacity. Images were viewed. Labs reviewed on admission WBC 15.97, Hgb 10.5 Albumin 2.3 Creatinine 0.63 BUN 16 Sodium 135 Potassium 3.5 Medications reviewed: Zosyn, Diltiazem, Aspirin, Xanax, Tessalon Perles, Xarelto Historian: patient Onset: just prior to arrival Severity: mild Review of Systems Constitutional: denies: chills, fever Eyes: denies: eye pain ENT: denies: loss of hearing Cardiovascular: reports: chest pain (s/p thoracentesis), denies: chest tightness Respiratory: reports: cough (dry), denies: shortness of breath, wheezing Gastrointestinal: denies: abdominal pain Genitourinary - Female: denies: dysuria Musculoskeletal: denies: neck pain Integumentary: denies: rash Neurologic: denies: headache, general weakness Psychiatric: reports: no symptoms All Other Symptoms All Other Systems: Reviewed and Negative Past Medical History Past Medical History: Medical Problems: (1) Arthritis (2) Atrial fibrillation with RVR (3) Leukocytosis (4) Mass of left lung (5) Pleural effusion Family History FH: myocardial infarction BROTHER Hypertension FATHER MOTHER Social History Hx Tobacco Use In Past Year?: Yes Smoking Status: Current Every Day Smoker Marital status: Occupational Status: retired Immunizations History of Influenza Vaccine: Unknown History of Tetanus Vaccine?: Unknown History of Pneumococcal: Unknown History of Hepatitis B Vaccine: Unknown History of MDRO History of MDRO: No Allergies Coded Allergies: No Known Allergies (Unverified , 09/07/14) Current Medications Reported Home Medications Medications Dose Route/Sig Max Daily Dose Days Date Category Dose Instructions Xarelto (Rivaroxaban) 20 Mg Tab 20 Mg PO DAILY 08/16/17 Reported Tiazac (Diltiazem HCl) 180 Mg Capcr 180 Mg PO DAILY 08/16/17 Reported Tylenol (Acetaminophen) 500 Mg Tab 1,000 Mg PO PRN UD 08/13/17 Reported Macular Health Formula (Multiple Vitamins W/ Minerals) 1 Cap Cap 1 Cap PO DAILY 08/13/17 Reported Biotin 1,000 Mcg Tab 1 Tab PO DAILY 08/13/17 Reported Caltrate 600 Plus (Calcium Carbonate-Vitamin D W/) 1 Tab Tab 1 Tab PO DAILY 08/13/17 Reported Folvite (Folic Acid) 1 Mg Tab 1 Mg PO DAILY 08/13/17 Reported Fosamax+D 70MG/2800 Iu (Alendronate Sodium/Vitamin D3) 70 Mg Tab 1 Tablet PO WK 08/13/17 Reported TAKE ON MONDAYS Ecotrin Or Generic (Aspirin) 81 Mg Tab 81 Mg PO DAILY 09/01/14 Reported Vitamin B-12 (Cyanocobalamin) 100 Mcg Tab 500 Mcg PO DAILY 09/01/14 Reported [place]-3 (Fish Oil) 1 Ea Cap 1,200 Mg PO DAILY 09/01/14 Reported Methotrexate 2.5 Mg Tab 10 Mg PO WK 09/01/14 Reported TAKES ON TUESDAYS Xanax (Alprazolam) 0.5 Mg Tab 0.5 Mg PO QAM 07/01/08 Reported Physical Physical Exam Vital Signs: Date Time Temp Pulse Resp B/P (MAP) Pulse Ox O2 Delivery O2 Flow Rate FiO2 09/03/17 08:00 Room Air 09/03/17 07:43 37.1 88 15 136/76 (96) 93 Nasal Cannula 09/03/17 04:07 37.1 90 16 121/69 (86) 95 Room Air 09/03/17 04:00 Room Air 09/03/17 00:01 Room Air 09/02/17 22:57 36.6 81 18 133/76 (95) 94 Room Air 09/02/17 20:30 94 Room Air 09/02/17 20:05 36.5 74 18 127/77 Room Air 09/02/17 18:47 36.5 74 18 127/77 (94) 94 Room Air General Appearance: WELL-APPEARING, WD/WN, NO APPARENT DISTRESS Head: NORMOCEPHALIC, ATRAUMATIC Eyes: NO DISCHARGE, SCLERAE NORMAL ENT: NORMAL NASAL EXAM Neck: NORMAL RANGE OF MOTION, TRACHEA MIDLINE Respiratory: NO RESPIRATORY DISTRESS, other (decreased breath sounds left base) Cardiovasular: REGULAR RATE/RHYTHM, NO MURMUR Abdomen: NORMAL BOWEL SOUNDS Back: NORMAL INSPECTION (small bandage on left side) Upper Extremities: NORMAL ROM Lower Extremities: NORMAL ROM Neuro: ALERT, ORIENTED x 3 Psychiatric: NORMAL AFFECT Diagnostics Labs Results Past 24 Hours Test 09/02/17 20:07 09/03/17 06:23 09/03/17 08:34 09/03/17 08:50 Range/Units White Blood Count 15.97 12.66 4.8-10.8 K/uL Red Blood Count 3.37 3.52 4.2-5.4 M/uL Hemoglobin 10.5 11.1 12.0-16.0 g/dL Hematocrit 30.9 32.2 37-47 % Mean Corpuscular Volume 91.7 91.5 80-100 fL Mean Corpuscular Hemoglobin 31.2 31.5 25-34 pg Mean Corpuscular Hemoglobin Concent 34.0 34.5 32-36 g/dl Platelet Count 518 531 130-400 K/uL Mean Platelet Volume 8.5 8.3 7.4-10.4 fL Neutrophils (%) (Auto) 91.5 87.2 % Lymphocytes (%) (Auto) 4.5 8.2 % Monocytes (%) (Auto) 3.4 3.7 % Eosinophils (%) (Auto) 0.1 0.5 % Basophils (%) (Auto) 0.1 0.2 % Neutrophils # (Auto) 14.60 11.04 1.4-6.5 K/uL Lymphocytes # (Auto) 0.72 1.04 1.2-3.4 K/uL Monocytes # (Auto) 0.55 0.47 0.11-0.59 K/uL Eosinophils # (Auto) 0.02 0.06 0-0.5 K/uL Basophils # (Auto) 0.02 0.02 0-0.2 K/uL RDW Standard Deviation 44.8 44.8 36.4-46.3 fL RDW Coefficient of Variation 13.7 13.8 11.5-14.5 % Immature Granulocyte % (Auto) 0.4 0.2 % Immature Granulocyte # (Auto) 0.06 0.03 0.00-0.02 K/uL Prothrombin Time 14.0 9.0-12.0 SECONDS Prothromb Time International Ratio 1.3 0.9-1.1 Activated Partial Thromboplast Time 38.5 21.0-31.0 SECONDS Partial Thromboplastin Ratio 1.5 Sodium Level 135 136-145 mmol/L Potassium Level 3.5 3.5-5.1 mmol/L Chloride Level 101 98-107 mmol/L Carbon Dioxide Level 25 21-32 mmol/L Anion Gap 9.0 3-11 mmol/L Blood Urea Nitrogen 16 7-18 mg/dl Creatinine 0.63 0.60-1.20 mg/dl Est Creatinine Clear Calc Drug Dose 61.3 ml/min Estimated GFR () 103.9 Estimated GFR (Non- 89.6 BUN/Creatinine Ratio 24.8 10-20 Random Glucose 126 70-99 mg/dl Calcium Level 8.4 8.5-10.1 mg/dl Total Bilirubin 0.4 0.2-1 mg/dl Aspartate Amino Transf (AST/SGOT) 9 15-37 U/L Alanine Aminotransferase (ALT/SGPT) 11 12-78 U/L Alkaline Phosphatase 78 45-117 U/L Total Protein 6.8 6.4-8.2 gm/dl Albumin 2.3 3.4-5.0 gm/dl Globulin 4.5 2.5-4.0 gm/dl Albumin/Globulin Ratio 0.5 0.9-2 Blood Gas Sample Site Heel Stick Bedside Blood Gas pH (LAB) 7.12 7.35-7.45 Bedside Blood Gas pCO2 (LAB) 64 35-46 mmHg Bedside Blood Gas pO2 (LAB) < 32 80-95 mmHg Bedside Blood Gas HCO3 (LAB) 21 19-24 meq/L Bedside Blood Gas Total CO2 23 24-31 mEq/l Bedside Blood Gas Base Excess (LAB) -9.0 -9-1.8 meq/L Bedside Blood Gas O2 Saturation 32.0 90-95 % Kayden Test NA Test 09/03/17 08:59 Range/Units Microbiology Results 09/03/17 Fungal Smear, Ordered Pending 09/03/17 Fungal Culture, Ordered Pending 09/03/17 Acid Fast Stain, Ordered Pending 09/03/17 Mycobacterial Culture, Ordered Pending 09/03/17 Gram Stain, Ordered Pending 09/03/17 Bacterial Culture, Ordered Pending Diagnostic Radiology CHEST ONE VIEW PORTABLE CLINICAL HISTORY: Left pleural effusion COMPARISON STUDY: 09/02/2017 FINDINGS: There is a persistent left pleural effusion. There is a left perihilar masslike opacity. Left lower lobe airspace opacities remain similar to the preceding study. The right lung remains clear. There is a trace right pleural effusion.[ IMPRESSION: 1. No change from the preceding study. Persistent left perihilar masslike opacity. Moderate left pleural effusion and trace right pleural effusion EKG EKG showed NSR Impression Assessment and Plan Left-sided pleural effusion Possible post-obstructive pneumonia Non-Small cell Lung CA Leukocytosis Patient with left-sided pleural effusion. Dr. Zimmer completed left-sided thoracentesis this morning. Awaiting studies on pleural fluid. If pleural fluid is noted to have metastatic cells, patient will likely not need to have Endo- Bronchial U/S next week to stage because she would then be known Stage 4. Will wait for pleural fluid analysis. If EBUS is performed next week, patient will need cardiac clearance for procedure, therefore I consulted cardiology this morning. Will need to be off of Xarelto/ASA for 5 days prior to procedure. Concern for post-obstructive pneumonia/parapneumonic effusion. Therefore, continue Zosyn. Add O2 supplementation PRN to keep SaO2 >90%. Patient may be OK for discharge back home if she is stable and repeat chest X-Ray post- thoracentesis is clear pending cardiothoracic opinion. We will follow.
--- NOTE | 2017-09-03 10:06 | OPERATIVE REPORT ---
DATE OF OPERATION: 09/03/2017 PROCEDURE: Left thoracentesis under ultrasound guidance. SURGEON: Dr. Zimmer. SHERIFF'S SERGEANT: Riley Vuong PA-C. ANESTHESIA: Local. SPECIFICS OF PROCEDURE: With the patient in the upright position leaning forward in her bed the bedside ultrasound was used and we saw easily identifiable fluid in the left side. I went rather low in about the eighth interspace and anesthetized an area after marking it. She was prepped and draped and a large bore needle was used to anesthetize the deeper tissues and pleura. Free flowing miller fluid was noted. A guidewire was inserted through the needle and needle removed. A dilator was slid over the guidewire and then removed and triple lumen catheter was slid in 17 cm. 900 mL of a rust colored fluid was drained. She had reexpansion pain. I then removed the catheter as we got no more fluid out. She had no bleeding. It should be noted the patient was on Xarelto and had her last dose yesterday. An x-ray shows she still had some fluid, although drained much better. Interestingly enough she had very little in the way of symptoms from this fluid. I am a bit concerned, however, as the patient had a pH of 7.12 on our I-stat. In addition it was 7.15. At the Gram stain has organisms we may want to be more aggressive in our drainage. We will discuss this in more detail. I attest to the content of the Intraoperative Record and any orders documented therein. Any exception s are noted below.
--- NOTE | 2017-09-03 10:20 | SURGICAL CONSULTATION ---
DATE OF CONSULTATION: 09/03/2017 DATE OF CONSULTATION: 09/03/2017 REASON FOR CONSULTATION: 1. Acute accumulation left pleural fluid. 2. Nonsmall cell lung carcinoma, left lung. HISTORY OF PRESENT ILLNESS: Veronica Mendoza is a delightful 72-year-old patient who is an active smoker (smoked half a pack yesterday), who continues to work. She lives alone and is independent in activities of daily living. She does have a history of rheumatoid arthritis and was found to have acute onset of atrial fibrillation for which she is being treated. She is being treated with methotrexate for her rheumatoid. At any rate, she underwent a bronchoscopy on 08/14/[address] Winsome Alvarado and was found to have a nonsmall cell lung carcinoma. She does have some mediastinal adenopathy and Dr. Red Worley is working her up with an endobronchial ultrasound next week. The patient had left-sided pain with leukocytosis and was admitted last night. I saw her today and she looks "fine". She is on room air. She would like to go home. She has remained in normal sinus rhythm. An x-ray showed acute accumulation of left-sided pleural fluid which she did not have on 08/13/[address] scan. In fact, she had no fluid whatsoever. She simply had a left lower lobe mass. I had a long discussion with the patient. She has lost no weight. She has had no productive cough. She denies fevers or chills. She states the only problem she has had left-sided chest pain. PAST MEDICAL HISTORY: 1. Rheumatoid arthritis. 2. Active cigarette smoker. 3. Nonsmall cell lung carcinoma, left lung. 4. Osteoporosis. 5. Hypertension. PAST SURGICAL HISTORY: 1. 0, para 0, abortus 0. 2. Bronchoscopy. 3. Cataract extractions. MEDICATIONS (AT HOME): 1. Tylenol. 2. Fosamax. 3. Xarelto. 4. Methotrexate. 5. Aspirin. 6. Xanax. 7. Diltiazem. ALLERGIES: No known drug allergies. SOCIAL HISTORY: The patient is originally from [place]. 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 More recently she is working for an [employer] 3 days a week. She continues to smoke about half pack of cigarettes a day, has been smoking for well over 50 years. She was a heavier smoker in her youth. The patient is and lives alone. FAMILY MEDICAL HISTORY: The patient has no children. She does have siblings that are healthy as well as nieces and nephews. Both of her parents lived to be in their 80s. REVIEW OF SYSTEMS: The patient denies any night sweats or productive cough. She did have a left-sided pain. It is interesting in that she did have shortness of breath and a cough, but this is actually improved. She states she does notice pain on her left side when she coughs. It does not bother her at rest. She has been eating and drinking well. She denies night sweats. She denies any sputum production. She has had no visual or auditory symptoms. She has had no GI or symptoms such as nausea, vomiting or diarrhea. She denies any neurologic symptoms such as amaurosis fugax, transient ischemic attack. She has had no joint effusions. She denies peripheral edema. She actually denies palpitations or chest pain now. PHYSICAL EXAMINATION: GENERAL: This is a delightful, but short young 72-year-old who looks much younger than her stated age. She stands 4 feet 11 inches tall and weighs 112 pounds. HEAD, EYES, EARS, NOSE, AND THROAT: Her extraocular movements are intact. She has bilateral arcus senilis. She has no nasolabial flattening and no nasal polyps. Her oral mucosa is moist. Her teeth are in excellent repair. NECK: Supple. I detect no neck vein distention or carotid bruits. She has no supraclavicular or cervical lymphadenopathy. LUNGS: Clear. She is moving air quite well. I detect no evidence of wheezing or rales. She does have decreased breath sounds in the left base. ABDOMEN: Nice and soft, nontender. EXTREMITIES: She has excellent peripheral pulses. She has no joint effusions. She has no peripheral edema. NEUROLOGIC: She is awake, alert and oriented, no focal deficits. Cranial nerves II-XII are intact. DATA: I reviewed her chest x-ray and she has had an acute left pleural effusion. Interestingly enough, her white count is down to 12,660 yesterday, 2 days ago it was 18,630. She has been afebrile since she was admitted. Her heart rate has been in the 80s and her blood pressure has been fine. ASSESSMENT AND PLAN: Rather acute left pleural effusion in a patient who has a nonsmall cell lung carcinoma, presumably her left lung, although mention of her lingula was made on the bronchoscopy report. She is scheduled for a PET scan and an endobronchial ultrasound by Dr. Worley. At this point, I am going to do a thoracentesis right now. Should this prove to be an empyema that will change our plans of how we work her up.
[2017-09-03] MEDS ORDERED: PIPERACILL/TAZOBAC CONSULT ACTIVE PRN (10:30)
[2017-09-03 10:31] LABS: PLEURAL FLUID APPEARANCE CLOUDY; PLEURAL FLUID COLOR RED; PLEURAL FLUID MONONUC RELAT 12.2 %; PLEURAL FLUID POLYNUC 87.8 %; PLEURAL FLUID SOURCE RIGHT LUNG; PLEURAL FLUID WBC (A) 2082 /uL
[2017-09-03 10:41] LABS: PLEURAL FLUID TOTAL PROTEIN 4.1 g/dl
[2017-09-03 12:17] VITALS: BP 147/74; PULSE 92; TEMP 36.3; O2SAT 92
--- NOTE | 2017-09-03 12:17 | CARDIOLOGY CONSULTATION ---
DATE OF CONSULTATION: 09/03/2017 TIME: 11:18 a.m. CONSULTING CLINICIAN: Dr. Lau. REASON FOR CONSULTATION: Cardiac risk assessment for procedure. HISTORY OF PRESENT ILLNESS: Ms. Mendoza is a very pleasant 72-year-old female with a history significant for paroxysmal atrial fibrillation, COPD, hypertension, and rheumatoid arthritis. She was recently diagnosed with a lung mass concerning for malignancy. Records indicate a concern for nonsmall cell lung carcinoma. She was evaluated by Dr. Lynch of cardiology on 08/13/2017 when she presented to [facility] with tachyarrhythmia concerning for atrial flutter with rapid ventricular response with heart rates in the 160s. She spontaneously converted and was started on diltiazem and also anticoagulation in the form of Xarelto prior to discharge. During this hospital evaluation, she underwent imaging of her lungs which demonstrated a left lung mass with mediastinal and hilar adenopathy and she was followed by pulmonology. She was admitted to [facility] directly with worsening left pleural effusion and concern for empyema. She did undergo thoracentesis earlier today by Dr. Coronel and 900 mL of a rust colored fluid was drained. She did have chest pain on 08/13/2017 when she presented with atrial flutter with rapid ventricular response. There was concern at that time for possible myocardial ischemia as a repeat ECG had diffuse ST elevation and elevated J point, which likely represented early repolarization. She has not had any further chest pain. The chest pain occurred with atrial flutter and rapid ventricular response, also in the setting of pleural effusion and left lobe pulmonary mass. She was symptomatic with atrial flutter as well with palpitations. They are intermittently occurring on 08/11/2017 and then on 1:00 a.m. on 08/13/2017, she developed the left-sided chest pain that did not resolve with Tylenol. She went to the urgent care center and was found to be in atrial arrhythmia and sent to the Emergency Department. On Xarelto, she did have some light hematuria for the first few days which has since resolved. She also had some blood tinged sputum with her cough that she has been experiencing for the past several weeks. The blood-tinged sputum has also resolved. Otherwise, she denies melena or hematochezia. She has noted for the past 2 weeks that she has been more fatigued and had much less energy and feels tired in general. Despite this, she continues to exert herself and can walk up and down the grocery store in [place] without chest discomfort or shortness of breath. There may have been some swelling in her legs over the past 2 weeks as well as a 10 pound weight gain. Following the thoracentesis earlier today, she feels much better in regards to her fatigue and breathing. She denies fevers, chills, syncope, near syncope or recurrent palpitations. REVIEW OF SYSTEMS: As above. Review of systems is otherwise negative. PAST MEDICAL HISTORY: 1. Lung mass concerning for nonsmall cell lung carcinoma per records. 2. Rheumatoid arthritis. 3. Paroxysmal atrial flutter. 4. COPD. 5. Hypertension. 6. Dyslipidemia. 7. Anxiety. 8. Right lumbar radiculopathy. 9. Osteopenia. CURRENT MEDICATIONS: Include aspirin 81 mg daily, diltiazem 180 mg daily, methotrexate 10 mg every Thursday, Zosyn IV. Xarelto has been held. ALLERGIES: No known drug allergies. SOCIAL HISTORY: Continues to smoke. She currently smokes 0.5 packs per day but has smoked up to a pack per day for the past 50 years. Rare alcohol. No drugs. . No children. She is retired from [employer] and also [employer]. She works part-time currently. FAMILY HISTORY: Brother suddenly of myocardial infarction in his 50s. Parents had hypertension. PHYSICAL EXAMINATION: VITAL SIGNS: Temperature 37.1 degrees, heart rate 88 beats per minute, respiration rate 15, blood pressure 136/76 mmHg, oxygen saturation 93% on room air. Weight 50.1 kg. GENERAL: In no acute distress. She is alert and oriented. HEENT: Anicteric sclerae. NECK: No appreciable JVD. No bruits. Normal carotid upstrokes bilaterally. CARDIAC EXAMINATION: PMI was nondisplaced. There was no ventricular heave. Regular, normal S1, S2. There were no audible murmurs, rubs or gallops. There was occasional ectopic beats. LUNGS: Decreased breath sounds throughout the entire left lung field. Right lung abbott clear. ABDOMEN: Soft, nontender, nondistended. Normoactive bowel sounds. EXTREMITIES: No cyanosis or pitting edema. 2+ radial pulses bilaterally. 2+ dorsalis pedis pulses bilaterally. No palpable cords. PSYCHIATRIC: Affect appears appropriate. Chest x-ray personally reviewed. Left lung mass visualized. Left pleural effusion noted. Radiology has interpreted this as loculated left basilar pneumothorax. Significant interval decrease in the size of left pleural effusion status post thoracentesis. Echocardiogram 08/13/2017, reported normal LV systolic function, EF 60-65%. Normal wall motion. No significant valvular abnormalities. Borderline pulmonary hypertension. Estimated PASP 35-40 mmHg. LABS: White blood cell count 12.66, hemoglobin 11.1, platelets 531. Sodium 135, potassium 3.5, BUN 16, creatinine 0.63, AST 9, ALT 11, albumin 2.3. Pleural fluid protein level 4.1. Serum protein level 6.8. ECG personally reviewed. ECG 09/03/2017 at 8:19 a.m., sinus rhythm at 90 beats per minute. Prior ECGs also reviewed as noted above. Telemetry personally reviewed. Occasional PACs. No arrhythmias. ASSESSMENT AND PLAN: 1. Preoperative cardiac assessment: She is able to achieve greater than 4 mets without angina. She appears to be at low cardiac risk for pending procedures. She has had more fatigability however, this could also be related to the significant pleural effusion and malignancy. No ischemic evaluation recommended at this time given lack of angina and the fact that it would likely only add potential delay to further diagnostic and potentially therapeutic procedures for her malignancy. Would recommend that she remain on diltiazem the morning of any procedure in case she should develop atrial arrhythmia to help with rate control. 2. Paroxysmal atrial flutter: She had atrial flutter with rapid ventricular responses and was quite symptomatic. She has not had any recurrent episodes since 08/13/2017. If anticoagulation therapy needs to be held for the procedure, can hold. If she is going to be remain hospitalized and the procedure is going to be delayed for some period of time, could consider heparin drip depending on the timing of events to be done. Continue diltiazem for rate control strategy for recurrent atrial arrhythmia. 3. Pleural effusion: Based on protein ratio, appears to be exudative. Further evaluation and treatment as per pulmonary and thoracic surgery. 4. Disposition: Plan of care discussed with Dr. Leslie of the primary hospitalist service. Please call for any other questions or concerns. Cardiology will otherwise sign off at this time.
--- NOTE | 2017-09-03 13:26 | Clinical Documentation Query ---
CLINICAL DOCUMENTATION QUERY Dr. ALBA, In your clinical opinion is this patient being managed for: ( x ) possible/suspected Malignant pleural effusion ( ) Not Agree ( ) Other explanation of clinical findings (Please Explain) ( ) Unable to determine (Please Define) ( ) Need to Discuss The medical record reflects the following clinical findings, treatment, and risk factors. Clinical Indicators: 72 yo female presenting with worsening pleural effusion. Pt also with a known history of nonsmall cell lung cancer. Effusion has been described as "exudative" Treatment: thoracentesis with pending pathology report Risk Factors: lung cancer Please clarify and document your clinical opinion in the progress notes and discharge summary. Terms such as "probable", "suspected", "likely", "questionable", "possible", or "still to be ruled out" are acceptable. IF IN AGREEMENT, YOU MUST DOCUMENT ABOVE DIAGNOSTIC STATEMENT IN DAILY PROGRESS NOTES AND DISCHARGE SUMMARY. This document is not part of the patient's record. Thank You, Amira Lynch, RN [phone]
--- NOTE | 2017-09-03 13:28 | Clinical Documentation Query ---
CLINICAL DOCUMENTATION QUERY Dr. PERALTA, In your clinical opinion is this patient being managed for: ( ) possible/suspected Malignant pleural effusion ( ) Not Agree ( ) Other explanation of clinical findings (Please Explain) ( x ) Unable to determine (Please Define) pending results of fluid analysis ( ) Need to Discuss The medical record reflects the following clinical findings, treatment, and risk factors. Clinical Indicators: 72 yo female presenting with worsening pleural effusion. Pt also with a known history of nonsmall cell lung cancer. Effusion has been described as "exudative" Treatment: thoracentesis with pending pathology report Risk Factors: lung cancer Please clarify and document your clinical opinion in the progress notes and discharge summary. Terms such as "probable", "suspected", "likely", "questionable", "possible", or "still to be ruled out" are acceptable. IF IN AGREEMENT, YOU MUST DOCUMENT ABOVE DIAGNOSTIC STATEMENT IN DAILY PROGRESS NOTES AND DISCHARGE SUMMARY. This document is not part of the patient's record. Thank You, Amira Lynch, ELVIS [phone]
[2017-09-03 16:00] VITALS: BP 147/74; PULSE 92; TEMP 36.3; O2SAT 92
[2017-09-03 16:19] VITALS: BP 126/68; PULSE 91; TEMP 36.4; O2SAT 94
--- NOTE | 2017-09-03 17:56 | Family Medicine Progress Note ---
Progress Note Date of Service Sep 03, 2017. Subjective Pt evaluation today including: conversation w/ patient, physical exam, chart review, lab review, review of studies, conversation w/ event management consultant, review of inpatient medication list Patient feeling well this morning, she has just returned from thoracocentesis which she states she tolerated well. She has minimal discomfort on the left side for the procedure, but otherwise denies any fevers, chest pain or dyspnea. She is tolerating diet, and voiding and stooling appropriately. Smoking cessation was discussed with patient she states that she has already gone down to half a pack from a full pack a day. All Other Systems: Reviewed and Negative Objective Vital Signs Date Time Temp Pulse Resp B/P (MAP) Pulse Ox O2 Delivery O2 Flow Rate FiO2 09/03/17 16:19 36.4 91 18 126/68 (87) 94 Room Air 09/03/17 16:00 Room Air 09/03/17 16:00 36.3 92 20 147/74 (98) 92 Room Air 09/03/17 12:17 36.3 92 20 147/74 (98) 92 Room Air 09/03/17 12:00 Room Air 09/03/17 08:00 Room Air 09/03/17 07:43 37.1 88 15 136/76 (96) 93 Room Air 09/03/17 04:07 37.1 90 16 121/69 (86) 95 Room Air 09/03/17 04:00 Room Air 09/03/17 00:01 Room Air 09/02/17 22:57 36.6 81 18 133/76 (95) 94 Room Air 09/02/17 20:30 94 Room Air 09/02/17 20:05 36.5 74 18 127/77 Room Air 09/02/17 18:47 36.5 74 18 127/77 (94) 94 Room Air Physical Exam General Appearance: WD/WN, no apparent distress Eyes: normal inspection ENT: hearing grossly normal Neck: supple Respiratory/Chest: no respiratory distress, no accessory muscle use, + decreased breath sounds (at the left base), + crackles, + rales Cardiovascular: regular rate, rhythm, + normal peripheral pulses Abdomen: normal bowel sounds, non tender, soft Extremities: no pedal edema, no calf tenderness Neurologic/Psychiatric: alert, normal mood/affect, oriented x 3 Skin: normal color, warm/dry, no rash Laboratory Results Results Past 24 Hours Test 10/18/17 20:07 09/03/17 00:00 09/03/17 06:23 09/03/17 11:45 Range/Units White Blood Count 15.97 12.66 4.8-10.8 K/uL Red Blood Count 3.37 3.52 4.2-5.4 M/uL Hemoglobin 10.5 11.1 12.0-16.0 g/dL Hematocrit 30.9 32.2 37-47 % Mean Corpuscular Volume 91.7 91.5 80-100 fL Mean Corpuscular Hemoglobin 31.2 31.5 25-34 pg Mean Corpuscular Hemoglobin Concent 34.0 34.5 32-36 g/dl Platelet Count 518 531 130-400 K/uL Mean Platelet Volume 8.5 8.3 7.4-10.4 fL Neutrophils (%) (Auto) 91.5 87.2 % Lymphocytes (%) (Auto) 4.5 8.2 % Monocytes (%) (Auto) 3.4 3.7 % Eosinophils (%) (Auto) 0.1 0.5 % Basophils (%) (Auto) 0.1 0.2 % Neutrophils # (Auto) 14.60 11.04 1.4-6.5 K/uL Lymphocytes # (Auto) 0.72 1.04 1.2-3.4 K/uL Monocytes # (Auto) 0.55 0.47 0.11-0.59 K/uL Eosinophils # (Auto) 0.02 0.06 0-0.5 K/uL Basophils # (Auto) 0.02 0.02 0-0.2 K/uL RDW Standard Deviation 44.8 44.8 36.4-46.3 fL RDW Coefficient of Variation 13.7 13.8 11.5-14.5 % Immature Granulocyte % (Auto) 0.4 0.2 % Immature Granulocyte # (Auto) 0.06 0.03 0.00-0.02 K/uL Prothrombin Time 14.0 9.0-12.0 SECONDS Prothromb Time International Ratio 1.3 0.9-1.1 Activated Partial Thromboplast Time 38.5 21.0-31.0 SECONDS Partial Thromboplastin Ratio 1.5 Sodium Level 135 136-145 mmol/L Potassium Level 3.5 3.5-5.1 mmol/L Chloride Level 101 98-107 mmol/L Carbon Dioxide Level 25 21-32 mmol/L Anion Gap 9.0 3-11 mmol/L Blood Urea Nitrogen 16 7-18 mg/dl Creatinine 0.63 0.60-1.20 mg/dl Est Creatinine Clear Calc Drug Dose 61.3 ml/min Estimated GFR () 103.9 Estimated GFR (Non- 89.6 BUN/Creatinine Ratio 24.8 10-20 Random Glucose 126 70-99 mg/dl Calcium Level 8.4 8.5-10.1 mg/dl Total Bilirubin 0.4 0.2-1 mg/dl Aspartate Amino Transf (AST/SGOT) 9 15-37 U/L Alanine Aminotransferase (ALT/SGPT) 11 12-78 U/L Alkaline Phosphatase 78 45-117 U/L Total Protein 6.8 6.4-8.2 gm/dl Albumin 2.3 3.4-5.0 gm/dl Globulin 4.5 2.5-4.0 gm/dl Albumin/Globulin Ratio 0.5 0.9-2 Pleural Fluid Source RIGHT LUNG Pleural Fluid Color RED Pleural Fluid Appearance CLOUDY Pleural Fluid WBC 2082 /uL Pleural Fluid RBC 79875 /uL Pleural Fluid pH 7.15 7.3-7.4 Pleural Fluid Polynuclear WBCs % 87.8 % Pleural Fluid Mononuclear WBCs % 12.2 % Pleural Fluid Total Protein 4.1 g/dl Pleural Fluid LDH 443 IU Pleural Fluid Glucose 70 mg/dl Pleural Fluid Amylase 18 U/L Lactate Dehydrogenase 174 84-246 U/L Microbiology Results 09/03/17 Fungal Smear - Final, Resulted 09/03/17 Fungal Culture, Resulted Pending 09/03/17 Acid Fast Stain, Received Pending 09/03/17 Mycobacterial Culture, Received Pending 09/03/17 Gram Stain - Final, Resulted 09/03/17 Bacterial Culture, Resulted Pending Assessment and Plan 72 yo F smoker with a history of NSCLC in left lobe and a left pleural effusion concerning for empyema given leukocytosis. Possible/suspected Malignant pleural effusion -Left - secondary to NSCLC - Concerning for empyema, but could be malignant effusion. Unsure at this time. Consulted pulm and thoracic surg - recs appreciated. s/p left-sided thoracentesis 09/03. Concern given low pH of fluid - Trace pleural fluid analysis - If pleural fluid is noted to have metastatic cells, EBUS no longer required next week, since she would then be known Stage 4. - Trend CBC, BMP, INR ?Post-obstructive pneumonia/parapneumonic effusion - IV Zosyn for potential infection coverage - Gram stain from sputum - Incentive spirometry - Add O2 supplementation PRN to keep SaO2 >90% CVS risk assess - Patient was assessed for CVS risk factors and patient has no history of ME/ stroke. She has no history of DM however patient is a smoker. Smoking cessation encouraged at bedside. RCRI for this patient is 0 points; 0.4% risk of major cardiac event or 0.9% if surgery requirement is intrathoracic. A fib currently rate controlled. - Cardio consulted for assessment of candidacy for surgery - needs to be off xarelto if going for surgery early next wk. could be bridged with heparin drip A fib with RVR - Continue Diltiazem - Xarelto held in anticipation for potential thoracentesis RA - Methotrexate held until infection ruled out - Tylenol for pain control Anxiety - Xanax DVT Prophylaxis - SCD Continued [facility] stay due to: other Resident Tracking Resident Involvement: Resident Care Provided Care Provided: Adult Hospital Medicine Reviewed: Pt Seen/Exam by Me History feeling upset about having to stay in the hospital for culture results Constitutional: denies: fever Respiratory: negative: short of breath Cardiovascular: denies chest pain General Appearance: no apparent distress Respiratory: no respiratory distress, decreased breath sounds (left base) Cardiovascular: regular rate, rhythm Gastrointestinal: soft Neurologic/Psychiatric: alert, oriented x 3 Skin Characteristics: warm/dry Assessment/Plan Resident Physician Supervision Note: I independently interviewed and examined the patient and verified the swan history and physical, reviewed labs and image studies, discussed the case with the resident Dr. Valentin and agree with the findings and care plan.
[2017-09-04 00:01] VITALS: BP 114/61; PULSE 89; TEMP 36.4; O2SAT 94
[2017-09-04] MEDS: PIPERACILL/TAZOBAC IV 3.375 GM in DEXTROSE 5% 100ML 100 ML IV SCH ×2 (03:26→11:18)
[2017-09-04 03:47] VITALS: BP 136/81; PULSE 87; TEMP 36.7; O2SAT 95
[2017-09-04] MEDS: CYANOCOBALAMIN 500 MCG TAB (VIT B-12) PO SCH (07:42)
[2017-09-04] MEDS: ASPIRIN 81 MG ECTAB PO SCH (07:42)
--- NOTE | 2017-09-04 07:42 | DIAGNOSTIC IMAGING REPORT ---
SINGLE VIEW CHEST CLINICAL HISTORY: Pleural effusion. FINDINGS: An AP, portable, upright chest radiograph is compared to study dated 09/03/2017 and correlated with chest CT dated 08/13/2017. The cardiomediastinal silhouette is unremarkable. There is atherosclerotic calcification of the thoracic aorta. Emphysema and chronic interstitial thickening is unchanged. A 3.5 cm spiculated left perihilar mass is unchanged from previous. There is a small to moderate left pleural effusion with left basilar consolidation. Apical scarring is observed. No pneumothorax is seen. The skeletal structures are osteopenic. The bony thorax is grossly intact. IMPRESSION: 1. A small to moderate left pleural effusion with associated left basilar consolidation is unchanged from yesterday. 2. Advanced emphysema and a spiculated left perihilar mass are also unchanged. Electronically signed by: Abram Velez M.D. 09/04/2017 7:41 AM Dictated Date/Time: 09/04/2017 7:39 AM
[2017-09-04] MEDS: CEROVITE ADV FORMULA TAB PO SCH (07:43)
[2017-09-04] MEDS: BENZONATATE 100MG CAP PO SCH ×2 (07:43→13:12)
[2017-09-04] MEDS: OMEGA-3 (PURIFIED FISH OIL) 1 GM CAP PO SCH (07:43)
[2017-09-04] MEDS: CALCIUM 600MG + VIT D 400 IU TAB PO SCH (07:43)
[2017-09-04] MEDS: DILTIAZEM HCL (TIAzac) 180 MG CAPCR PO SCH (07:43)
[2017-09-04] MEDS: ALPRAZOLAM 0.5 MG TAB PO SCH (07:44)
[2017-09-04 07:54] LABS: BASO % 0.4 %; BASO ABS # 0.04 K/uL (0-0.2); COMPLETE YES; EOS % 0.8 %; HEMATOCRIT 31.9 % (37-47); IG% 0.2 %; LYMPH % 9.8 %; LYMPH ABS # 0.94 K/uL (1.2-3.4); MEAN CELL VOLUME 92.2 fL (80-100); MEAN CORPUSCULAR HEMOGLOBIN 30.3 pg (25-34); MEAN CORPUSCULAR HGB CONC 32.9 g/dl (32-36); MEAN PLATELET VOLUME 8.4 fL (7.4-10.4); MONO % 6.4 %; NEUT % 82.4 %; PLATELET COUNT 495 K/uL (130-400); RED BLOOD COUNT 3.46 M/uL (4.2-5.4); WHITE BLOOD COUNT 9.55 K/uL (4.8-10.8)
--- NOTE | 2017-09-04 08:02 | SURGERY PROGRESS NOTE ---
DATE: 09/04/2017 DATE: 09/04/2017 Ms. Mendoza was seen today on 09/04/2017. She feels "great." She is afebrile. She has 95% saturation on room air. Her laboratory studies from our pleural fluid shows LDH 443, protein 4.1 and had many red cells. Glucose was 70. I believe we are probably dealing with a malignant effusion, although it came up very quickly. Her x-ray done today shows some reaccumulation of the fluid from yesterday. The question has been raised about whether the patient needs to stay in the hospital. I will discuss this with the pathologist today; however, when we get our cytology back from the fluid from yesterday and we see and check on the micro from her pleural fluid from yesterday to see if there is any growth we may let her go home today and I will follow her up next week.
[2017-09-04 08:17] VITALS: BP 155/79; PULSE 89; TEMP 36.9; O2SAT 94
[2017-09-04 08:27] LABS: BUN/CREATININE RATIO 13.7 (10-20); CALCIUM 8.5 mg/dl (8.5-10.1); CREATININE 0.74 mg/dl (0.60-1.20); POTASSIUM 3.7 mmol/L (3.5-5.1)
--- NOTE | 2017-09-04 10:37 | Pulmonology Progress Note ---
Pulmonary Progress Note Date of Service Sep 04, 2017. Attending Dr. Smipson Subjective Patient is very concerned this morning and states that she needs to go home and process what is going on. She is feeling overall well. No SOB, chest pain, coughing. Dr. Zimmer evaluated this morning- awaiting results of micro and cytology. Patient states that either way, she wants to go home today if possible. She is planned to have EBUS w/ENB Thursday and PET/CT Thursday. Labs reviewed: WBC 9.55 HGb 10.5 Creatinine 0.74 BUN 10 Meds reviewed: Zosyn, Xanax, Tessalon Perles ROS otherwise reviewed and negative Objective VS reviewed BP 155/79 HR 89 RR 20 SaO2 94% on room air General: Patient is awake, alert, cooperative, and in no acute distress. Well developed. Well-nourished. Head: Normocephalic, Atraumatic. ENT: PERRLA, No discharge, EOMI, Sclera normal Neck: Normal ROM. Trachea midline. No stridor Respiratory: No adventitious sounds heard on exam. Normal breath sounds. No respiratory distress. No accessory muscle use. Cardiovascular: Regular rate and rhythm. No murmur appreciate. Normal S1/S2. Abdomen: Nontender to palpation. Normal bowel sounds hear throughout. No guarding. Abdomen is soft and nontender Back: Normal inspection. Extremities: No edema, cyanosis. Normal ROM Neuro: Alert, Oriented x 3. CN II-XII grossly intact. Sensation and motor function grossly intact. Psych: Mood and affect are labile Assessment & Plan Left-sided pleural effusion Possible post-obstructive pneumonia Non-Small cell Lung CA Leukocytosis Patient with left-sided pleural effusion. S/P thoracentesis. pH 7.15. Micro and cytology pending. Exudative effusion. Dr. Zimmer following. Will await his opinion regarding further intervention/discharge to home. Plan for EBUS/ENB and PET/CT next week. Awaiting studies on pleural fluid. If pleural fluid is noted to have metastatic cells, patient will likely not need to have Endo-Bronchial U/S next week to stage because she would then be known Stage 4. Will wait for pleural fluid analysis. Concern for post-obstructive pneumonia/parapneumonic effusion. Therefore, continue Zosyn. Will follow along with CT surgery recommendations regarding further plan. Data Medications: Current Inpatient Medications Medications (Trade) Dose Ordered Sig/Corrina Route Start Time Stop Time Status Last Admin Dose Admin Al Hydrox/Mg Hydrox/Simethicone (Maalox Max Susp) 15 ml Q4H PRN PO 09/02/17 20:00 10/02/17 19:59 Magnesium Hydroxide (Milk Of Magnesia Susp) 30 ml Q12H PRN PO 09/02/17 20:00 10/02/17 19:59 Ondansetron HCl (Zofran Inj) 4 mg Q6H PRN IV 09/02/17 20:00 10/02/17 19:59 Benzonatate (Tessalon Perles Cap) 100 mg TID PO 09/02/17 21:00 10/02/17 20:59 09/04/17 07:43 100 MG Acetaminophen (Tylenol Tab) 1,000 mg Q8H PRN PO 09/02/17 20:00 10/02/17 19:59 Alprazolam (Xanax Tab) 0.5 mg QAM PO 09/03/17 09:00 10/03/17 08:59 09/04/17 07:44 0.5 MG Aspirin (Ecotrin Tab) 81 mg DAILY PO 09/03/17 09:00 10/03/17 08:59 09/03/17 07:27 81 MG Calcium/Vitamin D (Caltrate Plus Tab) 1 tab DAILY PO 09/03/17 09:00 10/03/17 08:59 09/04/17 07:43 1 TAB Cyanocobalamin (Vitamin B-12 Tab) 500 mcg DAILY PO 09/03/17 09:00 10/03/17 08:59 09/04/17 07:42 500 MCG Diltiazem HCl (TIAzac CAP) 180 mg DAILY PO 09/03/17 09:00 10/03/17 08:59 09/04/17 07:43 180 MG Fish Oil (Tiffin-3 (Purified Fish Oil) Cap) 1 gm DAILY PO 09/03/17 09:00 10/03/17 08:59 09/04/17 07:43 1 GM Folic Acid (Folvite Tab) 1 mg DAILY PO 09/03/17 09:00 10/03/17 08:59 09/04/17 07:43 1 MG Methotrexate (Methotrexate Tab) 10 mg Tu@0900 PO 09/08/17 09:00 10/08/17 08:59 Multivitamins/ Minerals (Multivitamin W/ Minerals Tab) 1 tab DAILY PO 09/03/17 09:00 10/03/17 08:59 09/04/17 07:43 1 TAB Piperacillin Sod/ Tazobactam Sod 3.375 gm/Dextrose 115 ml @ 28.75 mls/ hr Q8H IV 09/03/17 04:00 09/10/17 03:59 09/04/17 03:26 28.75 MLS/HR Piperacillin Sod/ Tazobactam Sod (Consult) 1 ea UD PRN N/A 09/03/17 10:30 10/03/17 10:29 Vital Signs: Date Time Temp Pulse Resp B/P (MAP) Pulse Ox O2 Delivery O2 Flow Rate FiO2 09/04/17 08:17 36.9 89 20 155/79 (104) 94 Room Air 09/04/17 08:00 Room Air 09/04/17 04:00 Room Air 09/04/17 03:47 36.7 87 18 136/81 (99) 95 Room Air 09/04/17 00:01 Room Air 09/04/17 00:01 36.4 89 19 114/61 (78) 94 Room Air 09/03/17 20:00 Room Air 09/03/17 16:19 36.4 91 18 126/68 (87) 94 Room Air 09/03/17 16:00 Room Air 09/03/17 16:00 36.3 92 20 147/74 (98) 92 Room Air 09/03/17 12:17 36.3 92 20 147/74 (98) 92 Room Air 09/03/17 12:00 Room Air Laboratory Results: Last 24 Hours Test 09/03/17 11:45 09/04/17 07:25 Lactate Dehydrogenase 174 U/L White Blood Count 9.55 K/uL Red Blood Count 3.46 M/uL Hemoglobin 10.5 g/dL Hematocrit 31.9 % Mean Corpuscular Volume 92.2 fL Mean Corpuscular Hemoglobin 30.3 pg Mean Corpuscular Hemoglobin Concent 32.9 g/dl Platelet Count 495 K/uL Mean Platelet Volume 8.4 fL Neutrophils (%) (Auto) 82.4 % Lymphocytes (%) (Auto) 9.8 % Monocytes (%) (Auto) 6.4 % Eosinophils (%) (Auto) 0.8 % Basophils (%) (Auto) 0.4 % Neutrophils # (Auto) 7.86 K/uL Lymphocytes # (Auto) 0.94 K/uL Monocytes # (Auto) 0.61 K/uL Eosinophils # (Auto) 0.08 K/uL Basophils # (Auto) 0.04 K/uL RDW Standard Deviation 45.4 fL RDW Coefficient of Variation 13.7 % Immature Granulocyte % (Auto) 0.2 % Immature Granulocyte # (Auto) 0.02 K/uL Sodium Level 135 mmol/L Potassium Level 3.7 mmol/L Chloride Level 102 mmol/L Carbon Dioxide Level 26 mmol/L Anion Gap 7.0 mmol/L Blood Urea Nitrogen 10 mg/dl Creatinine 0.74 mg/dl Est Creatinine Clear Calc Drug Dose 53.4 ml/min Estimated GFR () 93.8 Estimated GFR (Non- 80.9 BUN/Creatinine Ratio 13.7 Random Glucose 99 mg/dl Calcium Level 8.5 mg/dl
[2017-09-04 12:22] VITALS: BP 110/66; PULSE 87; TEMP 36.4; O2SAT 94
[2017-09-04] MEDS ORDERED: BENZ100C7 PO (14:24)
--- NOTE | 2017-09-04 14:36 | Discharge Instructions ---
Discharge Instructions Date of Service Sep 04, 2017. Admission Reason for Admission: Leukocytosis, Pleural Effusion Discharge Discharge Diagnosis / Problem: Left pleural effusion Discharge Goals Goal(s): Decrease discomfort, Improve disease control, Diagnostic testing, Therapeutic intervention Activity Recommendations Activity Limitations: resume your previous activity . Instructions / Follow-Up Instructions / Follow-Up You were admitted with fluid in your left lung and an elevated white cell count. A thoracocentesis was performed to remove the fluid and showed no cancer cells in the fluid. There has been no bugs growing from the fluid yet either, but these take time to grow, and you may be informed otherwise at a later time. At this time, you will be discharged on a 10 day course of Augmentin to be taken twice daily and you need to not take either of your blood thinning medications, neither the aspirin nor the Xarelto. You may continue all of your other medications. You will be following up with Dr. Worley for bronchoscopy on Thursday, and have a PET scan scheduled on Thursday. Follow up with Dr. Zimmer will also be scheduled for next week. Their office will call you with an appointment time. If you do not hear from them within 24 hours of discharge, please call back. Thank you for allowing us to participate in your care. Current Hospital Diet Patient's current hospital diet: Regular Diet Discharge Diet Recommended Diet: Regular Diet Procedures Procedures Performed: Thoracocentesis Pending Studies Studies pending at discharge: yes List of pending studies: Pleural fluid analysis and culture Laboratory Results Hemoglobin A1c Test 08/13/17 15:09 Range/Units Estimated Average Glucose 103 mg/dl Hemoglobin A1c 5.2 4.5-5.6 % Medical Emergencies . Who to Call and When: Medical Emergencies: If at any time you feel your situation is an emergency, please call 911 immediately. . Non-Emergent Contact Non-Emergency issues call your: Primary Care Provider, Geomagnetist, Surgeon . . "Provider Documentation" section prepared by Lizzie Valentin. . VTE Core Measure Inpt VTE Proph given/why not?: Other Anticoagulation Resident Tracking Resident Involvement: Resident Care Provided Care Provided: Adult [facility]
[2017-09-04] MEDS ORDERED: AMOX875T PO (14:37)
--- NOTE | 2017-09-04 14:37 | Discharge Summary ---
Discharge Summary Date of Service Sep 04, 2017. (Alka. Valentin MD) Discharge Summary Admission Date: Sep 02, 2017 at 18:22 Discharge Date: Sep 04, 2017 Discharge Disposition: Home Principal Diagnosis: Left pleural effusion Immunizations: Have You Had Influenza Vaccine: Unknown History of Tetanus Vaccine?: Unknown History of Pneumococcal: Unknown History of Hepatitis B Vaccine: Unknown Consultations: Pulmonology, thoracic surgery (Alka. Valentin MD) Medication Reconciliation New Medications: Amoxicillin & Pot Clavulanate (Augmentin 875-125 mg) 1 Tab Tab 1 TAB PO BID for 10 Days, #20 TAB Benzonatate (Benzonatate) 100 Mg Cap 100 MG PO TID, #20 CAP Continued Medications: Acetaminophen (Tylenol) 500 Mg Tab 1000 MG PO PRN UD, TAB Alendronate/Cholecalciferol (Fosamax+D 70MG/2800 Iu) 70 Mg Tab 1 TABLET PO WK, TAB TAKE ON MONDAYS Alprazolam (Xanax) 0.5 Mg Tab 0.5 MG PO QAM, 0 Refills Biotin (Biotin) 1,000 Mcg Tab 1 TAB PO DAILY Calcium Carbonate-Vitamin D W/ (Caltrate 600 Plus) 1 Tab Tab 1 TAB PO DAILY, TAB Cyanocobalamin (Vitamin B-12) 100 Mcg Tab 500 MCG PO DAILY, TAB Diltiazem Hcl Ext Rel (Tiazac) 180 Mg Capcr 180 MG PO DAILY Fish Oil ([place]-3) 1 Ea Cap 1200 MG PO DAILY, CAP Folic Acid (Folvite) 1 Mg Tab 1 MG PO DAILY, TAB Methotrexate (Methotrexate) 2.5 Mg Tab 10 MG PO WK, TAB TAKES ON TUESDAYS Multiple Vitamins W/ Minerals (Macular Health Formula) 1 Cap Cap 1 CAP PO DAILY Discontinued Medications: Aspirin Enteric Coated (Ecotrin Or Generic) 81 Mg Tab 81 MG PO DAILY, TAB Rivaroxaban (Xarelto) 20 Mg Tab 20 MG PO DAILY Discharge Exam Patient well, asymptomatic from remaining fluid in left lung. Keen for home. ROS unremarkable. Physical Exam: General Appearance: WD/WN, + mild distress (Emotional) Eyes: normal inspection ENT: hearing grossly normal Neck: supple Respiratory/Chest: no respiratory distress, no accessory muscle use, + decreased breath sounds (At left base), + crackles Cardiovascular: regular rate, rhythm, no edema, normal peripheral pulses Abdomen / GI: normal bowel sounds, non tender, soft Extremities: no calf tenderness, no pedal edema Neurologic/Psychiatric: alert, normal mood/affect, oriented x 3 Skin: normal color, warm/dry, no rash (Alka. Valentin MD) Review of Systems: Constitutional: No fever Respiratory: No shortness of breath Cardiovascular: No chest pain Physical Exam: General Appearance: no apparent distress Respiratory/Chest: no respiratory distress, + decreased breath sounds (left lower lung) Cardiovascular: regular rate, rhythm Abdomen / GI: normal bowel sounds, non tender, soft Neurologic/Psychiatric: alert, oriented x 3 (Katie Leslie M.D.) Hospital Course 72 yo F smoker with a history of NSCLC in left lobe and a left pleural effusion concerning for empyema given leukocytosis. Left pleural effusion - Concerning for empyema, but could be malignant effusion given NSCLC. Consulted pulm and thoracic surg - recs appreciated. s/p left- sided thoracentesis 09/03. Concern given low pH of fluid. Fluid exudative, but no malignant cells found in fluid. Cultures pending. Some fluid reaccumulation in subsequent day, but patient asymptomatic. - On discharge, follow-up arranged as following: Appointment with Dr. Zimmer on Thursday with CXR prior to arrival. Appointment with Dr. Worley On Thursday for bronchoscopy. Scheduled for PET scan on Thursday. ?Post-obstructive pneumonia/parapneumonic effusion - IV Zosyn for potential infection coverage while in hospital - Continue 10 days of Augmentin 875 mg twice a day CVS risk assess - Patient was assessed for CVS risk factors and patient has no history of AL/ stroke. She has no history of DM however patient is a smoker. Smoking cessation encouraged at bedside. RCRI for this patient is 0 points; 0.4% risk of major cardiac event or 0.9% if surgery requirement is intrathoracic. A fib currently rate controlled. Cardio consulted for assessment of candidacy for surgery - On discharge, remain off aspirin and xarelto if going for surgery early next wk. could be bridged with heparin drip A fib with RVR - Continue Diltiazem - Xarelto held in anticipation for potential thoracentesis RA - Methotrexate held until infection ruled out - Tylenol for pain control Anxiety - Xanax DVT Prophylaxis - SCD Total Time Spent: Less than 30 minutes This includes examination of the patient, discharge planning, medication reconciliation, and communication with other providers. (Alka. Valentin MD) Resident Physician Supervision Note: I independently interviewed and examined the patient and verified the sawn history and physical, reviewed labs and image studies, discussed the case with the resident Dr. Valentin and agree with the findings and care plan. Total Time Spent: Greater than 30 minutes (35) (Katie Leslie M.D.) Discharge Instructions Please refer to the electronic Patient Visit Report (Discharge Instructions) for additional information. (Alka. Valentin MD) Additional Copies To RV. Reveles MD Resident Tracking Resident Involvement: Resident Care Provided Care Provided: Adult Hospital Medicine (Alka. Valentin MD)
[2017-09-04 14:56] VITALS: BP 110/66; PULSE 87; TEMP 36.4; O2SAT 94
--- NOTE | 2017-09-04 15:52 | SURGERY PROGRESS NOTE ---
DATE: 09/04/2017 Ms. Mendoza was seen today on 09/04/2017. I reviewed the cytology with the pathologist and this is negative for malignant cells. It appears there are inflammatory cells and blood. We have no growth from our fluid at 24 hours. It was acidotic. She feels "great". She is walking around. She is on room air. She has had no GI or pulmonary issues. She would like to go home. I have discussed this case in detail with Dr. Worley, Dr. Simpson and Rachel Magana from the pulmonary service. I am comfortable with sending her home given her excellent clinical appearance. I would suggest sending her home on antibiotics for an extended period of time. I will see her back in the office next week. At this point, she is scheduled for an endobronchial ultrasound with biopsy on Thursday and then a PET scan on Thursday. I will see her or Thursday and we will make a determination about how to proceed. NAMAN
[2017-09-07] MEDS ORDERED: CHOL2000 PO (15:52)
[2017-09-07] MEDS ORDERED: BENZ100C18 PO (15:52)
[2017-09-07] MEDS ORDERED: RIVA1TAB4 PO (16:33)
[2017-09-07] MEDS ORDERED: ASPI81TA28 PO (16:33)
[2017-09-08] MEDS ORDERED: METHOTREXATE 2.5 MG TAB PO SCH (09:00)
== END 2017-09-04 15:18 | disposition home or self-care (01) | DRG 186 ==
LOC: C.2T 18:22
PROVIDERS: ADMIT Internal Medicine; ATTEND Family Medicine
PROC: 0W9B3ZX Drainage of Left Pleural Cavity, Percutaneous Approach, Diagnostic (ICD-10-PCS; principal; 2017-09-03)
DX: J90 Pleural effusion, not elsewhere classified (principal); J18.8 Other pneumonia, unspecified organism; I48.92 Unspecified atrial flutter; C34.92 Malignant neoplasm of unspecified part of left bronchus or lung; J44.9 Chronic obstructive pulmonary disease, unspecified; M06.9 Rheumatoid arthritis, unspecified; E78.5 Hyperlipidemia, unspecified; I10 Essential (primary) hypertension; F41.9 Anxiety disorder, unspecified; F17.210 Nicotine dependence, cigarettes, uncomplicated; Z79.899 Other long term (current) drug therapy; Z79.01 Long term (current) use of anticoagulants; Z79.82 Long term (current) use of aspirin

== ENCOUNTER → 2017-09-02 | Outpatient (CLI) | payer BC ==
[~2017-09-02] MED LIST changes: +AMOX875T PO; +BENZ100C7 PO
--- NOTE | 2017-09-02 14:55 | DIAGNOSTIC IMAGING REPORT ---
CHEST 2 VIEWS ROUTINE HISTORY: COPD, LUNG MASS, LEUKOCYTOSIS COMPARISON: Chest 08/16/2017. FINDINGS: Increasing left hilar/perihilar opacity. There is a moderate left pleural effusion and left basilar densities which are new from the prior study. No pneumothorax. Trace right pleural effusion. The heart is normal in size. IMPRESSION: 1. Interval development of a moderate left and trace right pleural effusion. 2. Left hilar/perihilar masslike opacity has increased in size. 3. Left basilar densities favor atelectasis from the pleural effusion. Electronically signed by: Juwan Lozano M.D. 09/02/2017 2:54 PM Dictated Date/Time: 09/02/2017 2:52 PM
== END | disposition home or self-care (01) ==
LOC: C.RAD1850 14:40
PROVIDERS: ATTEND Internal Medicine Critical Care Medicine
DX: J44.9 Chronic obstructive pulmonary disease, unspecified (principal); R91.8 Other nonspecific abnormal finding of lung field; D72.829 Elevated white blood cell count, unspecified; C34.90 Malignant neoplasm of unspecified part of unspecified bronchus or lung; J90 Pleural effusion, not elsewhere classified

== ENCOUNTER → 2017-09-08 | Day surgery (SDC) | payer BC, OTHER ==
[2017-09-07 15:58] VITALS: BMI 22.0
[~2017-09-08] VITALS: Ht 149.9 cm; Wt 50.0 kg
[~2017-09-08] MED LIST changes: +AMOX875T PO; -ASPI81TA21 PO; +ASPI81TA28 PO; +ATROPINE SULFATE 0.1 MG/ML 5ML SYR IV PRN; +BENZ100C18 PO; +BENZ100C7 PO; +CHOL2000 PO; +DEXAMETHASONE SOD INJ 4 MG/ML VIAL ONE; +EpHEDrine SULFATE 50MG/5ML SYR ONE; +EpHEDrine SULFATE INJ 50 MG/ML AMP IV PRN; +FENTANYL CITRATE INJ 50 MCG/1 ML 2 ML VIAL IV PRN; +FENTANYL CITRATE INJ 50 MCG/1 ML 2 ML VIAL ONE; +LACTATED RINGER'S 1000ML 1,000 ML IV SCH; +LIDOCAINE HCL 2% 2 ML VIAL (20MG/ML) ONE; +MIDAZOLAM HCL 1 MG/ML 2ML VIAL ONE; +ONDANSETRON INJ 2 MG/ML 2 ML VIAL IV PRN; +ONDANSETRON INJ 2 MG/ML 2 ML VIAL ONE; +PROPOFOL IV EMULSION 10 MG/ML 20 ML VIAL IV ONE
--- NOTE | 2017-09-08 09:13 | History and Physical ---
History & Physical Date of Service Sep 08, 2017. History & Physical CC: Patient presents today for EBUS w/ ENB and repeat left-sided thoracentesis History of present illness: The patient a 72-year-old female recently to hospital for left-sided pleural effusion, leukocytosis, and non-small cell lung carcinoma. She did undergo bronchoscopic evaluation on 08/14/[address] Alvarado which noted non-small cell lung CA via cytology brushing. She has been experiencing a non-productive cough but otherwise has been feeling relatively well. During her admission, patient did undergo left-sided thoracentesis by Dr. Zimmer in Cardiothoracic surgery. The patient's pleural fluid was noted to have pH of 7.15, LDH of 443 , total protein of 4.1, cholesterol of 118, amylase of 18, and glucose of 70. It was noted to have 2000 white blood cells, and 38,000 red blood cells. Bacterial culture is showing no growth to date. Fungal culture has been negative, and AFB culture is pending. AFB smear was negative. Pathology report noted no malignant cells seen, but acute inflammatory cells noted. The patient ultimately was discharged home on p.o. Augmentin for 10 days. She did have a repeat chest x-ray prior to discharge home, which showed a small to moderate left pleural effusion with associated left basilar consolidation along with spiculated left perihilar mass. Review of systems: As noted in HPI. Otherwise reviewed and negative. Active Problems Afib (I48.91) Anxiety (F41.9) Chronic obstructive pulmonary disease (J44.9) Cough (R05) High risk medication use (Z79.899) Hyperlipidemia (E78.5) Hypertension (I10) Hyponatremia (E87.1) Leukocytosis (D72.829) Lung mass (R91.8) Need for hepatitis C screening test (Z11.59) Non-small cell carcinoma of lung (C34.90) Osteopenia (M85.80) Rheumatoid arthritis (M06.9) Rheumatoid arthritis with rheumatoid factor (M05.9) Tobacco use (Z72.0) Vitamin D deficiency (E55.9) Past Medical History Acute bronchitis (J20.9) Acute sinusitis (J01.90) History of Arthralgia of multiple sites (M25.50) History of Asymptomatic Postmenopausal Status History of Bulging Disc (L3 - L4) Left History of Encounter for routine gynecological examination (Z01.419) History of Encounter for routine pelvic examination (Z01.419) History of Encounter for screening colonoscopy (Z12.11) History of ESR raised (R70.0) History of acute pharyngitis (Z87.09) History of alopecia (Z87.898) History of pulmonary emphysema (Z87.09) History of sciatica (Z86.69) History of Influenza vaccine needed (Z23) History of Joint pain in the shoulder/clavicle region (M25.519) History of Pain, wrist joint (M25.539) History of Right lumbar radiculopathy (M54.16) History of Tremor (R25.1) Surgical History History of Cataract Surgery History of Dilation And Curettage Family History Family history of Atrial Fibrillation Family history of Hypertension Family history of Thyroid Disorder Family history of Chronic Obstructive Pulmonary Disease Family history of Congestive Heart Failure Family history of Hypertension Family history of Coronary Artery Disease Family history of Hypertension Social History Being A Social Drinker Current Diet Current smoker (F17.200) Denied: History of Drug Use Exercising Erratically Marital History - Once Occupation: Tobacco use (Z72.0) Uses Safety Equipment - Seatbelts Current Meds DilTIAZem HCl ER Beads 180 MG Oral Capsule Extended Release 24 Hour; TAKE 1 CAPSULE DAILY IN THE MORNING Xarelto 20 MG Oral Tablet; Take 1 tablet dailyHELD FOR PROCEDURE ALPRAZolam 0.5 MG Oral Tablet; TAKE 1 TABLET DAILY OR DIRECTED Benzonatate 200 MG Oral Capsule Ventolin HFA 108 (90 Base) MCG/ACT Inhalation Aerosol Solution; INHALE 1-2 PUFFS EVERY 4-6 HOURS NEEDED AND DIRECTED Aspirin 81 MG TABS; TAKE 1 TABLET DAILYHELD FOR PROCEDURE Vitamin D 2000 UNIT Oral Capsule EQL Calcium 600 MG TABS; TAKE 1 TABLET DAILY Folic Acid 1 MG Oral Tablet; TAKE 1 TABLET DAILY Methotrexate 2.5 MG Oral Tablet; TAKE 4 TABLETS WEEKLY Biotin TABS Fish Oil CAPS Fosamax 70 MG Oral Tablet; TAKE 1 TABLET ONCE WEEKLY Vitamin B-12 TABS Augmentin 875 mg BID Allergies No Known Drug Allergies Physical exam: General: Patient is awake, alert, cooperative, and in no acute distress. Well developed. Well-nourished. Head: Normocephalic, Atraumatic. ENT: PERRLA, No discharge, EOMI, Sclera normal Neck: Normal ROM. Trachea midline. No stridor Respiratory: No adventitious sounds heard on exam. Normal breath sounds. No respiratory distress. No accessory muscle use. Cardiovascular: Regular rate and rhythm. No murmur appreciate. Normal S1/S2. Abdomen: Nontender to palpation. Normal bowel sounds hear throughout. No guarding. Abdomen is soft and nontender Back: Normal inspection. Extremities: No edema, cyanosis. Normal ROM Neuro: Alert, Oriented x 3. CN II-XII grossly intact. Sensation and motor function grossly intact. Psych: Mood and affect are labile Assessment and plan: Left pleural effusion with left upper lobe spiculated lesion in setting of history of non-small cell lung carcinoma. Plan for repeat left-sided thoracentesis along with EBUS w ENB today.
[2017-09-08 10:41] VITALS: BP 161/74; PULSE 104; TEMP 36.9; O2SAT 94; Ht 149.9 cm; Wt 50.0 kg
--- NOTE | 2017-09-08 12:32 | History & Physical Bridge Note ---
H&P Re-Evaluation Bridge Note: I have examined the patient, reviewed the History & Physical and in the interval since the performance of the History & Physical I have noted the following changes of clinical significance: At this time we will not perform the thoracentesis as the patient has multiple septations but will move forward with the Vianca/ENB evaluation for staging and tumor marker acquisition.
--- NOTE | 2017-09-08 14:02 | Bronchoscopy Procedure Note ---
Bronchoscopy Procedure Note Procedure: Flexible-Bronchoscopy, EBUS, ENB, Tbbx, BAL, FNA Consent: Obtained through the patient placed into the chart Pre-Procedural Dx: Adenocarcinoma the lung Post-Procedural Dx: Adenocarcinoma the lung Analgesia: GETA Sedation: GETA Procedure: The Olympus video bronchoscope and EBUS scope were used for this procedure Initially the flexible bronchoscope was used for evaluation of the airways. The LAMA was well positioned on the glottis and the vocal cords were visualized and notably anatomically within normal limits Trachea: Visualized portion of the trachea was anatomically within normal limits Ewa: Anatomically within normal limits Right bronchial tree: Right mainstem bronchus: Anatomically within normal limits Right upper lobe: Anatomically within normal limits Bronchus intermedius: Anatomically within normal limits Right middle lobe: Anatomically within normal limits Right lower lobe: Anatomically within normal limits Findings: No significant findings noted Left bronchial tree: Left mainstem bronchus: Mild friability approximately 1 cm approximately to the takeoff of the secondary ewa normal under NBI Left upper lobe: The medial wall of the takeoff to the left upper lobe LB 3 subsegment was notably friable but under NBI showed no signs of abnormality Lingula: Anatomically within normal limits Left lower lobe: LB 6 subsegment notably erythematous and tertiary ewa splayed EBUS/BANG: Tbbx Tanisha Stations: 7: # of passes 4 LLL (LB6) Lung Mass Tbbx: x4 none ENB guided ENB Guided: Tbbx: x6 FNA: x4 BAL EBL: 3cc Complications: None Transfer to PACU for further follow-up
--- NOTE | 2017-09-08 14:11 | Discharge Instructions ---
Discharge Instructions Date of Service Sep 08, 2017. Admission Reason for Admission: Lung Mass Discharge Discharge Diagnosis / Problem: Lung mass Discharge Goals Goal(s): Diagnostic testing Activity Recommendations Activity Limitations: resume your previous activity . Instructions / Follow-Up Instructions / Follow-Up Follow up with Pulmonary at [facility] Current Hospital Diet Patient's current hospital diet: Discharge Diet Recommended Diet: Regular Diet Procedures Procedures Performed: Electromagnetic Navigational Bronchoscopy; Endobronchial Ultrasound Guided Biopsy; Bronchial Lavage, Flexible Fine Needle Aspiration, Transbronchial Biopsies Pending Studies Studies pending at discharge: yes List of pending studies: Chest XRay Laboratory Results Hemoglobin A1c Test 08/13/17 15:09 Range/Units Estimated Average Glucose 103 mg/dl Hemoglobin A1c 5.2 4.5-5.6 % Medical Emergencies . Who to Call and When: Medical Emergencies: If at any time you feel your situation is an emergency, please call 911 immediately. . Non-Emergent Contact Non-Emergency issues call your: Primary Care Provider . . "Provider Documentation" section prepared by Comfort Lau. . VTE Core Measure Inpt VTE Proph given/why not?: Other Anticoagulation (Patient can resume Xarelto and Aspirin treatment tomorrow)
--- NOTE | 2017-09-08 14:13 | DIAGNOSTIC IMAGING REPORT ---
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 COMPARISON: CTA chest 08/13/2017. TECHNIQUE: 2 spot fluoroscopic images of the left chest were obtained utilizing 67.0 seconds fluoroscopy time. FINDINGS: Bronchoscope with wire is noted with tip projected superiorly, possibly within the lingula superior segment. Ill-defined opacity of the left lower lobe is seen correlating with previously described left perihilar mass. IMPRESSION: Fluoroscopic assistance as above. Please see procedural report for further details. The above report was generated using voice recognition software. It may contain grammatical, syntax or spelling errors. Electronically signed by: Junior Rocha M.D. 09/08/2017 2:11 PM Dictated Date/Time: 09/08/2017 2:08 PM
--- NOTE | 2017-09-08 14:26 | DIAGNOSTIC IMAGING REPORT ---
CHEST ONE VIEW PORTABLE HISTORY: 72 years-old Female r/o PTX lung mass with concern for postbiopsy pneumothorax. COMPARISON: Chest radiograph 09/04/2017 TECHNIQUE: Portable upright AP view of the chest FINDINGS: Cardiac silhouette is upper limits of normal. Atherosclerosis of the aorta. Left hilar mass is again seen measuring up to approximately 3.6 cm. Moderate left pleural effusion with patchy alveolar opacities throughout the left lung base and left perihilar distribution suggesting atelectasis or pneumonitis. No definite postprocedural pneumothorax. Mild biapical pleural-parenchymal scarring with background emphysema. Mild bronchial wall thickening suggests associated bronchitis. The bones are grossly intact. IMPRESSION: 1. No evidence of postprocedural pneumothorax. 2. Moderate left pleural effusion with progressive patchy alveolar opacities throughout the left lung suggesting atelectasis and/or pneumonitis. 3. Unchanged appearance of left hilar mass. The above report was generated using voice recognition software. It may contain grammatical, syntax or spelling errors. Electronically signed by: Junior Rocha M.D. 09/08/2017 2:24 PM Dictated Date/Time: 09/08/2017 2:22 PM
--- NOTE | 2017-09-08 15:27 | Anesthesiology Progress Note ---
Anesthesia Post Op Note Date & Time Sep 08, 2017 at 15:26 Vital Signs Pain Intensity: 0 Vital Signs Past 12 Hours Date Time Temp Pulse Resp B/P (MAP) Pulse Ox O2 Delivery O2 Flow Rate FiO2 09/08/17 15:21 36.5 102/55 09/08/17 15:17 99 21 09/08/17 15:17 99 21 102/57 92 09/08/17 15:12 94 25 09/08/17 15:12 94 25 97 09/08/17 15:07 94 18 09/08/17 15:07 93 18 111/51 97 09/08/17 15:05 141/113 09/08/17 15:02 96 19 09/08/17 15:02 96 19 98 09/08/17 14:57 96 23 97 09/08/17 14:57 97 23 09/08/17 14:56 123/66 09/08/17 14:55 95 20 98 09/08/17 14:55 97 20 09/08/17 14:51 125/56 09/08/17 14:50 97 20 97 09/08/17 14:50 98 20 09/08/17 14:46 125/64 09/08/17 14:45 97 17 99 09/08/17 14:45 97 17 09/08/17 14:43 121/49 09/08/17 14:41 114/63 09/08/17 14:40 94 25 100 09/08/17 14:40 92 25 09/08/17 14:36 110/74 09/08/17 14:35 88 20 99 09/08/17 14:35 86 20 09/08/17 14:31 116/36 09/08/17 14:30 87 19 98 09/08/17 14:30 87 19 09/08/17 14:26 115/45 09/08/17 14:25 87 18 99 09/08/17 14:25 86 18 09/08/17 14:24 112/39 09/08/17 14:21 95/47 09/08/17 14:20 86 21 100 09/08/17 14:20 81 21 09/08/17 14:16 104/48 09/08/17 14:15 85 18 09/08/17 14:15 85 18 100 09/08/17 14:11 94/37 09/08/17 14:10 86 18 09/08/17 14:10 86 18 99 09/08/17 14:06 93/47 09/08/17 14:05 85 18 09/08/17 14:05 85 18 99 09/08/17 13:55 36.8 65 14 95/46 99 Oxymask 10 09/08/17 10:41 36.9 104 20 161/74 (103) 94 Room Air Notes Mental Status: alert / awake / arousable, participated in evaluation Pt Amnestic to Procedure: Yes Nausea / Vomiting: adequately controlled Pain: adequately controlled Airway Patency, RR, SpO2: stable & adequate BP & HR: stable & adequate Hydration State: stable & adequate Anesthetic Complications: no major complications apparent
[2017-09-08 15:30] VITALS: BP 94/45; PULSE 97; TEMP 36.5; O2SAT 93
[2017-09-08 16:00] VITALS: BP 107/49; PULSE 98; O2SAT 92
[2017-09-08 16:30] VITALS: BP 112/61; PULSE 88; TEMP 36.5; O2SAT 96
[2017-09-08 17:02] VITALS: BP 119/73; PULSE 91; TEMP 36.5; O2SAT 92
== END | disposition home or self-care (01) ==
LOC: C.ACU 10:06
PROVIDERS: ATTEND Internal Medicine Critical Care Medicine
DX: C34.32 Malignant neoplasm of lower lobe, left bronchus or lung (principal); J44.9 Chronic obstructive pulmonary disease, unspecified; I48.91 Unspecified atrial fibrillation; F41.9 Anxiety disorder, unspecified; E78.5 Hyperlipidemia, unspecified; I10 Essential (primary) hypertension; Z79.01 Long term (current) use of anticoagulants; Z79.82 Long term (current) use of aspirin; Z79.899 Other long term (current) drug therapy; F17.200 Nicotine dependence, unspecified, uncomplicated; M85.80 Other specified disorders of bone density and structure, unspecified site; Z98.49 Cataract extraction status, unspecified eye; Z98.890 Other specified postprocedural states; Z82.49 Family history of ischemic heart disease and other diseases of the circulatory system; Z83.49 Family history of other endocrine, nutritional and metabolic diseases; Z83.6 Family history of other diseases of the respiratory system

== ENCOUNTER → 2017-09-14 | Outpatient (CLI) | payer BC ==
[~2017-09-14] MED LIST changes: +AMIO200T4 PO; +AMPI500C9 PO; -ASPI81TA28 PO; -ATROPINE SULFATE 0.1 MG/ML 5ML SYR IV PRN; +CLC100 PO; -DEXAMETHASONE SOD INJ 4 MG/ML VIAL ONE; -EpHEDrine SULFATE 50MG/5ML SYR ONE; -EpHEDrine SULFATE INJ 50 MG/ML AMP IV PRN; -FENTANYL CITRATE INJ 50 MCG/1 ML 2 ML VIAL IV PRN; -FENTANYL CITRATE INJ 50 MCG/1 ML 2 ML VIAL ONE; -LACTATED RINGER'S 1000ML 1,000 ML IV SCH; -LIDOCAINE HCL 2% 2 ML VIAL (20MG/ML) ONE; -MIDAZOLAM HCL 1 MG/ML 2ML VIAL ONE; -ONDANSETRON INJ 2 MG/ML 2 ML VIAL IV PRN; -ONDANSETRON INJ 2 MG/ML 2 ML VIAL ONE; -PROPOFOL IV EMULSION 10 MG/ML 20 ML VIAL IV ONE; +ULT/50 PO; +inhaler
--- NOTE | 2017-09-14 09:14 | DIAGNOSTIC IMAGING REPORT ---
PET/CT SKULL-THIGH CLINICAL HISTORY: NON SMALL CELL LUNG CANCER COMPARISON STUDY: CT scan dated 08/13/2017 FINDINGS: The patient was injected with 13.4 mCi of F 18 labeled FDG. Following the standard induction phase, PET/CT scanning was performed from the skull base to the upper thigh region. Uptake within the neck is felt to be physiologic. Within the chest, there is a 36 mm left lower lobe pulmonary mass, which extends to the fissure. The mass is intensely FDG avid with SUV maximum of 10.0. There is an 8 mm precarinal lymph node with SUV maximum of 2.6. There are no FDG avid axillary or hilar lymph nodes. There is a left pleural effusion. There is gas present within the pleural space possibly secondary to prior thoracentesis. There are FDG avid subjacent parenchymal opacities, likely atelectatic/inflammatory. Within the abdomen, there is no pathologic hepatic or splenic activity. There is borderline increase left adrenal gland activity with SUV maximum of 2.4. The left adrenal gland is however not significantly enlarged. There is physiologic urinary tract and bowel activity. There is no pathologic cee activity within the abdomen or pelvis. There are no FDG avid skeletal lesions. IMPRESSION: 1. FDG avid 36 mm left lower lobe pulmonary mass which extends to the fissure. This has an SUV maximum of 10.0. This is consistent with the patient's known primary malignancy 2. Indeterminate 8 mm precarinal lymph node measuring 8 mm with SUV maximum of 2.4 3. Left pleural effusion with left pleural air, likely iatrogenic 4. Increased FDG activity within the left lower lobe, likely atelectatic 5. Focus of borderline increased FDG activity in the region of the left adrenal gland with SUV maximum of 2.4. No corresponding adrenal masses are visualized on the accompanying CT scan. Electronically signed by: Geoff Elaine M.D. 09/14/2017 9:13 AM Dictated Date/Time: 09/14/2017 9:02 AM
== END | disposition home or self-care (01) ==
LOC: C.PET 06:46
PROVIDERS: ATTEND Internal Medicine Critical Care Medicine
DX: C34.90 Malignant neoplasm of unspecified part of unspecified bronchus or lung (principal)

== ENCOUNTER → 2017-09-21 | Outpatient (CLI) | payer BC ==
--- NOTE | 2017-09-23 11:04 | PULMONARY FUNCTION TEST ---
SPIROMETRY: Moderately severe obstructive ventilatory disease. BRONCHODILATOR: No significant response. LUNG VOLUMES: Signs of hyperinflation with an elevated RV/TLC of 54. DIFFUSION: Moderately reduced at 49, corrects off alveolar volume of 78%. INTERPRETATION: Emphysema, clinical correlation is required.
--- NOTE | 2017-09-23 12:05 | PULMONARY FUNCTION TEST ---
Interpretation is based off ATS criteria. SPIROMETRY: Moderately severe obstructive ventilatory disease. BRONCHODILATOR: No significant response. LUNG VOLUMES: Hyperinflation with an elevated RV/TLC of 132%. DIFFUSION: Moderately reduced at 49%, correction to 78% based off alveolar volume. INTERPRETATION: Suggestive of emphysema. Clinical correlation required.
== END | disposition home or self-care (01) ==
LOC: C.RC 12:37
PROVIDERS: ATTEND Surgery
DX: C34.90 Malignant neoplasm of unspecified part of unspecified bronchus or lung (principal)

== ENCOUNTER → 2017-09-30 | Outpatient (CLI) | payer BC ==
[~2017-09-30] MED LIST changes: -AMOX875T PO; -BENZ100C7 PO
--- NOTE | 2017-09-30 10:38 | DIAGNOSTIC IMAGING REPORT ---
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 There is a left-sided hydropneumothorax with apical pleural separation of 26 mm. There is left lower lobe atelectasis/consolidation. There is minimal subcutaneous emphysema present on the left. The right lung is clear.[ IMPRESSION: 1. Left-sided hydropneumothorax with a pleural separation of 26 mm. This is slightly larger than on the preceding study. 2. Left lower lobe atelectasis/consolidation. Electronically signed by: Geoff Elaine M.D. 09/30/2017 10:37 AM Dictated Date/Time: 09/30/2017 10:35 AM
== END | disposition home or self-care (01) ==
LOC: C.RAD1850 09:52
PROVIDERS: ATTEND Surgery
DX: C34.90 Malignant neoplasm of unspecified part of unspecified bronchus or lung (principal); J94.8 Other specified pleural conditions; J98.11 Atelectasis

== ENCOUNTER → 2017-10-15 | Outpatient (CLI) | payer BC ==
[~2017-10-15] MED LIST changes: +DOCU100C31 PO; +GABA-112 PO; +HYDR-5688 PO
--- NOTE | 2017-10-15 09:49 | DIAGNOSTIC IMAGING REPORT ---
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 Postoperative changes overlying left hilum and left pulmonary apex. Small stable left apical pneumothorax unchanged in pleural separation. Right lung is clear. Calcified granuloma right apex unchanged. IMPRESSION: 1. Stable postoperative evaluation of the chest. 2. Unchanging postoperative changes left hilum and left pulmonary apex. 3. Small left apical pneumothorax stable from the prior study. The above report was generated using voice recognition software. It may contain grammatical, syntax or spelling errors. Electronically signed by: Donavon Avitia M.D. 10/15/2017 9:48 AM Dictated Date/Time: 10/15/2017 9:45 AM
== END | disposition home or self-care (01) ==
LOC: C.RAD1850 09:24
PROVIDERS: ATTEND Physician Assistant
DX: C34.92 Malignant neoplasm of unspecified part of left bronchus or lung (principal)

== ENCOUNTER 2017-10-19 10:46 | Day surgery (SDC) | payer BC ==
[2017-10-15 16:00] VITALS: BMI 21.0
[~2017-10-19] VITALS: Ht 149.9 cm; Wt 47.7 kg
[~2017-10-19 10:46] MED LIST changes: -AMPI500C9 PO; +ATROPINE SULFATE 0.1 MG/ML 5ML SYR IV PRN; +CEFAZOLIN 2000MG IV PUSH 10 ML IV SCH; -CLC100 PO; +EpHEDrine SULFATE INJ 50 MG/ML AMP IV PRN; +FENTANYL CITRATE INJ 50 MCG/1 ML 2 ML VIAL IV PRN; -HYDR-5688 PO; +HYDROmorphone INJ 1 MG/ML SYR IV PRN; +LABETALOL HCL IV 5 MG/ML 20ML IV PRN; +LACTATED RINGER'S 1000ML 1,000 ML IV SCH; +MEPERIDINE HCL 25 MG/ML CARP IV PRN; +ONDANSETRON INJ 2 MG/ML 2 ML VIAL IV PRN; -ULT/50 PO; -inhaler
[2017-10-19 12:08] VITALS: BP 180/77; PULSE 97; TEMP 36.6; O2SAT 91; Ht 149.9 cm; Wt 47.7 kg
--- NOTE | 2017-10-19 13:21 | History & Physical Bridge Note ---
H&P Re-Evaluation Bridge Note: I have examined the patient, reviewed the History & Physical and in the interval since the performance of the History & Physical I have noted the following changes of clinical significance: No changes noted
[2017-10-19] MEDS ORDERED: PROPOFOL IV EMULSION 10 MG/ML 20 ML VIAL IV ONE (15:24)
[2017-10-19] MEDS ORDERED: LIDOCAINE HCL 2% 2 ML VIAL (20MG/ML) ONE (15:24)
[2017-10-19] MEDS ORDERED: FENTANYL CITRATE INJ 50 MCG/1 ML 2 ML VIAL ONE (15:25)
[2017-10-19] MEDS ORDERED: MIDAZOLAM HCL 1 MG/ML 2ML VIAL ONE ×2 (15:25→16:06)
[2017-10-19] MEDS ORDERED: LIDOCAINE HCL 1% 20 ML VIAL ONE (15:26)
[2017-10-19] MEDS ORDERED: THROMBIN FOR SOLN 20000 UNIT KIT ONE (15:26)
[2017-10-19] MEDS ORDERED: HEPARIN SOD (PORCINE) 1000 UNIT/ML 10 ML VIAL ONE (15:26)
[2017-10-19] MEDS ORDERED: HYDR-5688 PO (16:09)
--- NOTE | 2017-10-19 16:11 | Discharge Instructions ---
Discharge Instructions Date of Service Oct 19, 2017. Visit Reason for Visit: Lung Cancer Discharge Discharge Diagnosis / Problem: A-port placement Discharge Goals Goal(s): Decrease discomfort Activity Recommendations Activity Limitations: as noted below Shower/Bathe: keep incision dry (for 2 days) Anesthesia . Post Anesthesia Instructions: If you have had General Anesthesia or IV Sedation: * Do not drive today. * Resume driving when surgeon permits. * Do not make important decisions or sign legal documents today. * Call surgeon for: 1. Temperature elevations greater than 101 degrees F. 2. Uncontrollable pain. 3. Excessive bleeding. 4. Persistent nausea and vomiting. 5. Medication intolerance (nausea, vomiting or rash). * For nausea and vomiting use only clear liquids such as: tea, soda, bouillon until nausea subsides, then gradually increase diet as tolerated. * If you have any concerns or questions, call your surgeon's office. If physician is unavailable and it is an emergency, call 911 or go to the nearest emergency room. . Instructions / Follow-Up Instructions / Follow-Up Dr. Dumas office in 2 weeks for suture removal, call [phone] if you do not already have an appt Restart Xarelto on Thursday It is OK for port to be used Diet Recommendations Recommended Home Diet: no limitations Pending Studies Studies pending at discharge: no Medical Emergencies . Who to Call and When: Medical Emergencies: If at any time you feel your situation is an emergency, please call 911 immediately. . Non-Emergent Contact Non-Emergency issues call your: Surgeon Call Non-Emergent contact if: you have a fever, temperature is above 101.5, your pain is not controlled, wound has increased redness, you have any medication questions . . "Provider Documentation" section prepared by Jovon Herrmann. .
[2017-10-19] MEDS ORDERED: LACTATED RINGER'S 1000ML 1,000 ML IV SCH (16:31)
[2017-10-19] MEDS ORDERED: MoRPHine SULFATE 2 MG/ML CARP IV PRN (16:45)
[2017-10-19] MEDS ORDERED: HYDROCODONE/ACETAMOPHEN 5/325MG TAB PO PRN ×3 (16:45)
[2017-10-19] MEDS ORDERED: ONDANSETRON INJ 2 MG/ML 2 ML VIAL IV PRN (16:45)
[2017-10-19] MEDS ORDERED: CEFAZOLIN SOD 1 GM VIAL IRRIG ONE (16:49)
--- NOTE | 2017-10-19 17:03 | Anesthesiology Progress Note ---
Anesthesia Post Op Note Date & Time Oct 19, 2017 at 17:03 Vital Signs Pain Intensity: 0 Vital Signs Past 12 Hours Date Time Temp Pulse Resp B/P (MAP) Pulse Ox O2 Delivery O2 Flow Rate FiO2 10/19/17 16:50 86 16 158/83 100 Oxymask 10 10/19/17 16:41 36.2 79 12 141/59 100 Oxymask 10 10/19/17 12:08 36.6 97 18 180/77 (111) 91 Room Air Notes Mental Status: alert / awake / arousable, participated in evaluation Pt Amnestic to Procedure: Yes Nausea / Vomiting: adequately controlled Pain: adequately controlled Airway Patency, RR, SpO2: stable & adequate BP & HR: stable & adequate Hydration State: stable & adequate Anesthetic Complications: no major complications apparent
[2017-10-19 17:15] VITALS: BP 151/64; PULSE 79; TEMP 36.5; O2SAT 94
--- NOTE | 2017-10-19 17:15 | DIAGNOSTIC IMAGING REPORT ---
CHEST ONE VIEW PORTABLE CLINICAL HISTORY: A-Port catheter placement. COMPARISON STUDY: 10/15/2017 FINDINGS: There has been interval placement of a left subclavian A-Port catheter. There is a small left apical pneumothorax the pleural separation of 19 mm. This appears slightly smaller than on the preceding study. There is a persistent left pleural effusion with associated left lower lobe atelectasis/consolidation. There is a left apical suture line. Surgical clips project over the left hilum.[ IMPRESSION: 1. Interval placement of a left-sided A-Port catheter. The tip projects at the superior vena cava 2. Interval decrease in the size of a left apical pneumothorax 3. Persistent left pleural effusion with left lower lobe atelectasis/consolidation Electronically signed by: Geoff Elaine M.D. 10/19/2017 5:13 PM Dictated Date/Time: 10/19/2017 5:12 PM
[2017-10-19 17:53] VITALS: BP 137/60; PULSE 83; TEMP 36.9; O2SAT 95
--- NOTE | 2017-10-19 19:09 | OPERATIVE REPORT ---
DATE OF OPERATION: 10/19/2017 NAME OF OPERATION: Access port. PREOPERATIVE DIAGNOSIS: Lung cancer. POSTOPERATIVE DIAGNOSIS: Same. STAFF SURGEON: Dr. Dumas. ANESTHESIA: 1% plain lidocaine with sedation. PROCEDURE: The patient was brought in the operating room and placed on the operating table in supine position. A roll was placed between her shoulders. Her chest was prepped and draped in usual fashion. The skin and subcutaneous tissues over the left deltopectoral groove were anesthetized. Incision made carrying dissection down to the deltopectoral groove. The cephalic vein was dissected free. It was ligated distally using 2-0 silk suture. It was then opened. A catheter was then passed into the superior vena cava under fluoroscopy and then secured in place using 2-0 silk suture and 2-0 chromic catgut suture. The pocket was fashioned in the chest wall. The port was attached to the catheter, aspirated and flushed with heparinized solution, placed into the pocket and secured to the chest wall using 3-0 Prolene suture and then irrigated with antibiotic solution. Subcutaneous tissue was reapproximated using 2-0 chromic catgut suture and then the skin reapproximated using 4-0 nylon suture. Dressing applied and patient transferred to recovery room in stable condition. I attest to the content of the Intraoperative Record and any orders documented therein. Any exceptions are noted below. ADDENDUM: PROCEDURE: The patient was in the operating room undergoing port placement. I used fluoroscopy to place the port into the superior vena cava and assess positioning. We did not need to use much fluoroscopy and were very successful. NAMAN
== END 2017-10-19 18:00 | disposition home or self-care (01) ==
LOC: C.ACU 10:46
PROVIDERS: ATTEND Surgery
DX: C34.92 Malignant neoplasm of unspecified part of left bronchus or lung (principal); I48.91 Unspecified atrial fibrillation; F41.9 Anxiety disorder, unspecified; J44.9 Chronic obstructive pulmonary disease, unspecified; I10 Essential (primary) hypertension; E78.5 Hyperlipidemia, unspecified; E87.1 Hypo-osmolality and hyponatremia; M85.80 Other specified disorders of bone density and structure, unspecified site; M05.9 Rheumatoid arthritis with rheumatoid factor, unspecified; E55.9 Vitamin D deficiency, unspecified; F17.210 Nicotine dependence, cigarettes, uncomplicated; Z79.01 Long term (current) use of anticoagulants; Z79.899 Other long term (current) drug therapy

== ENCOUNTER → 2017-10-22 | Outpatient (CLI) | payer BC ==
[~2017-10-22] MED LIST changes: -ACET-1256 PO; -ATROPINE SULFATE 0.1 MG/ML 5ML SYR IV PRN; -CEFAZOLIN 2000MG IV PUSH 10 ML IV SCH; -EpHEDrine SULFATE INJ 50 MG/ML AMP IV PRN; -FENTANYL CITRATE INJ 50 MCG/1 ML 2 ML VIAL IV PRN; +GADAVIST IV PRN; +HYDR-5688 PO; -HYDROmorphone INJ 1 MG/ML SYR IV PRN; -LABETALOL HCL IV 5 MG/ML 20ML IV PRN; -LACTATED RINGER'S 1000ML 1,000 ML IV SCH; -MEPERIDINE HCL 25 MG/ML CARP IV PRN; -ONDANSETRON INJ 2 MG/ML 2 ML VIAL IV PRN; -RIVA1TAB4 PO
--- NOTE | 2017-10-22 20:45 | DIAGNOSTIC IMAGING REPORT ---
MRI OF THE BRAIN WITHOUT AND WITH IV CONTRAST CLINICAL HISTORY: Lung cancer. Evaluate for metastatic disease. COMPARISON STUDY: No previous studies for comparison. TECHNIQUE: Utilizing a 1.5 Heidi magnet and dedicated coil, multiplanar, multiecho imaging of the brain was performed pre and postcontrast administration. IV administration of 4.5 mL of Gadavist contrast was uneventful. FINDINGS: No areas of restricted diffusion. No acute intracranial hemorrhage, midline shift or mass effect is present. There is no intracranial mass or pathologic enhancement. Flow-voids for the major intracranial vessels are present. Mild ventricular dilatation is likely due to atrophy. The basilar cisterns are patent. There are no extra-axial collections. White matter T2 hyperintense foci suggest mild small vessel disease. No calvarial lesions are identified. There is an opacified right posterior ethmoid air cell. IMPRESSION: No evidence of metastatic disease. Electronically signed by: Jason Syed M.D. 10/22/2017 8:43 PM Dictated Date/Time: 10/22/2017 8:37 PM
== END | disposition home or self-care (01) ==
LOC: C.MRI 18:22
PROVIDERS: ATTEND Internal Medicine Hematology & Oncology
DX: C34.32 Malignant neoplasm of lower lobe, left bronchus or lung (principal)

== ENCOUNTER → 2017-11-05 | Outpatient (CLI) | payer BC ==
[~2017-11-05] MED LIST changes: -FOLI1TAB7 PO; +FOLI1TAB8 PO; -GADAVIST IV PRN
--- NOTE | 2017-11-05 10:35 | DIAGNOSTIC IMAGING REPORT ---
CHEST 2 VIEWS ROUTINE CLINICAL HISTORY: HISTORY OF LUNG MASS COMPARISON STUDY: 10/19/2017 FINDINGS: There is a left apical suture line. There is a left-sided A-Port catheter present. There is a persistent left pleural effusion with left basilar atelectasis/consolidation. There is trace air within the left pleural space.[ IMPRESSION: 1. Left pleural effusion with a small loculated left-sided hydropneumothorax 2. Left basilar atelectasis/consolidation Electronically signed by: Geoff Elaine M.D. 11/05/2017 10:34 AM Dictated Date/Time: 11/05/2017 10:31 AM
== END | disposition home or self-care (01) ==
LOC: C.RAD1850 10:17
PROVIDERS: ATTEND Surgery
DX: R91.8 Other nonspecific abnormal finding of lung field (principal); J90 Pleural effusion, not elsewhere classified; J94.8 Other specified pleural conditions; J98.11 Atelectasis

== ENCOUNTER → 2018-02-12 | Outpatient (CLI) | payer BC ==
[~2018-02-12] MED LIST changes: +OPTIRAY 320 IV PRN
--- NOTE | 2018-02-12 10:18 | DIAGNOSTIC IMAGING REPORT ---
CT (CHEST) THORAX WITH CT DOSE: 185.61 mGy.cm HISTORY: Postoperative lung carcinoma LUNG CA TECHNIQUE: Multiaxial CT images of the chest were performed following the intravenous administration of contrast. A dose lowering technique was utilized adhering to the principles of ALARA. COMPARISON: PET/CT 09/14/2017 FINDINGS: Interval left lower lobectomy. Interval removal of the mass/nodular densities described previously. Small residual septated and/or partially loculated left pleural effusion. Minimal post procedural scarring left lung base and left retrohilar region. Minimal nodularity associated with a left posterior apical suture line. This is most likely postprocedural scar tissue. Slight peribronchial prominence. Slight compensatory cardiomediastinal silhouette shift to the left. Precarinal nodes measuring up to 9 mm. This is similar compared to the prior study. Chronic right apical parenchymal scar formation. Central catheter in the superior vena cava. Slight adrenal fullness unchanged. IMPRESSION: 1. Interval left lower lobectomy. 2. Mild scattered postprocedural pleural and pleural-based scar formation. 3. Small residual septated and a partially loculated left pleural effusion. 4. No evidence for significant residual or recurrent disease. The above report was generated using voice recognition software. It may contain grammatical, syntax or spelling errors. Electronically signed by: Donavon Avitia M.D. 02/12/2018 10:17 AM Dictated Date/Time: 02/12/2018 10:01 AM
== END | disposition home or self-care (01) ==
LOC: C.CTS 09:37
PROVIDERS: ATTEND Internal Medicine Hematology & Oncology
DX: C34.32 Malignant neoplasm of lower lobe, left bronchus or lung (principal)

== ENCOUNTER → 2018-03-23 | Outpatient (CLI) | payer BC ==
[~2018-03-23] MED LIST changes: -OPTIRAY 320 IV PRN
[2018-03-23 09:49] LABS: ALBUMIN 3.1 gm/dl (3.4-5.0); ALT/SGPT 14 U/L (12-78); AST/SGOT 16 U/L (15-37); BLOOD UREA NITROGEN 12 mg/dl (7-18); CALCIUM 8.7 mg/dl (8.5-10.1); CARBON DIOXIDE 27 mmol/L (21-32); CHOLESTEROL 207 mg/dl (0-200); CREATININE 1.02 mg/dl (0.60-1.20); GLUCOSE 100 mg/dl (70-99); POTASSIUM 4.2 mmol/L (3.5-5.1); SODIUM 138 mmol/L (136-145)
[2018-03-23 09:52] LABS: ALKALINE PHOSPHATASE 92 U/L (45-117); LDL CHOLESTEROL CALCULATED 115 mg/dl; TOTAL PROTEIN 7.8 gm/dl (6.4-8.2)
== END | disposition home or self-care (01) ==
LOC: C.LAB1850 06:49
PROVIDERS: ATTEND Internal Medicine
DX: I10 Essential (primary) hypertension (principal); Z11.59 Encounter for screening for other viral diseases; E78.5 Hyperlipidemia, unspecified; E55.9 Vitamin D deficiency, unspecified

== ENCOUNTER → 2018-03-29 | Outpatient (CLI) | payer BC ==
--- NOTE | 2018-03-29 12:27 | DIAGNOSTIC IMAGING REPORT ---
CHEST 2 VIEWS ROUTINE HISTORY: 73 years-old Female J20.9 Acute [id number] Acute upper respiratory infectionRAD COMPARISON: Chest radiographs 11/05/2017, CT chest 02/12/2017 TECHNIQUE: PA and lateral views of the chest FINDINGS: Cardiomediastinal and hilar silhouettes are within normal limits. Atherosclerosis of the aorta. Left subclavian [id number] catheter is unchanged with distal tip terminating in the expected region of the distal SVC. Biapical pleural-parenchymal scarring with emphysema and mild hyperinflation redemonstrated. Surgical suture material of the left lung apex with lucency about the left paramediastinal region redemonstrated, likely correlating with emphysematous changes without definite pneumothorax seen. Mildly loculated small left pleural effusion redemonstrated with left basilar opacities. Degenerative changes of the shoulders and spine. Nipple shadow projects over the right lung base. IMPRESSION: 1. Postoperative changes of the left lung apex with unchanged small mildly loculated left pleural effusion with left basilar opacities. 2. Emphysema. The above report was generated using voice recognition software. It may contain grammatical, syntax or spelling errors. Electronically signed by: Junior Rocha M.D. 03/29/2018 12:26 PM Dictated Date/Time: 03/29/2018 12:23 PM
== END | disposition home or self-care (01) ==
LOC: C.RAD1850 12:01
PROVIDERS: ATTEND Internal Medicine
DX: J06.9 Acute upper respiratory infection, unspecified (principal); J20.9 Acute bronchitis, unspecified; J43.9 Emphysema, unspecified; J90 Pleural effusion, not elsewhere classified

== ENCOUNTER → 2018-07-08 | Outpatient (CLI) | payer BC ==
[~2018-07-08] MED LIST changes: -HYDR-5688 PO
--- NOTE | 2018-07-08 09:55 | DIAGNOSTIC IMAGING REPORT ---
CT SCAN OF THE CHEST WITHOUT IV CONTRAST CLINICAL HISTORY: Follow-up lung cancer. COMPARISON STUDY: Chest CT scans dated 02/12/2018 and 08/13/2017. PET/CT dated 09/14/2017. TECHNIQUE: CT scan of the thorax was performed from the thoracic inlet to the upper abdomen. Images are reviewed in the axial, sagittal, and coronal planes. IV contrast was not administered for this examination as per the referring clinician. A dose lowering technique was utilized adhering to the principles of ALARA. CT DOSE: 189.79 mGy.cm FINDINGS: Thyroid: Imaged portions of the thyroid gland are normal in size and attenuation. Thoracic aorta: There is advanced atherosclerotic calcification of the thoracic aorta, which is normal in caliber and demonstrates standard 3-vessel arch anatomy. A left subclavian central venous infusion port is in place. Heart: The heart is normal in size and without pericardial effusion. The coronary arteries are densely calcified. Lungs and pleural spaces: There is moderate to advanced emphysema. There are postoperative changes and volume loss from left lower lobe resection with compensatory hyperinflation of the right lung. Pleural fluid is again seen at the left lung base. There is no airspace consolidation typical for pneumonia. A calcified granuloma is seen in the right upper lobe and there is biapical scarring. A 3 mm pleural-based nodule in the right lower lobe seen on image #217 and a 3 mm right upper lobe pulmonary nodule on image #56 are unchanged from previous. No new pulmonary lesion is identified. The trachea and central airways appear clear. Mediastinum: There is mild leftward shift of the mediastinum. No mediastinal lymphadenopathy is seen. Mila: Not well assessed without IV contrast. Axillae: There is no axillary lymphadenopathy. Upper abdomen: There is mild thickening of the left vertebral gland with small calcifications. This is similar to previous. Partially visualized upper abdominal viscera is otherwise within normal limits. Skeletal structures: The skeletal structures are osteopenic. Mild degenerative change is seen in the shoulders and thoracic spine. Postoperative change is noted in the left posterior ribs. No lytic or blastic bony lesions are seen. IMPRESSION: 1. Emphysema and postoperative change from left lower lobe resection. 2. There is no evidence of intrathoracic metastatic disease. 3. Pleural fluid at the left lung base is unchanged and likely on a postoperative basis. 4. There are 2 tiny pulmonary nodules in the right lung measuring up to 3 mm which are unchanged from previous. No new pulmonary lesion is identified. 5. There is no mediastinal adenopathy. 6. Additional findings as above. Electronically signed by: Abram Velez M.D. 07/08/2018 9:54 AM Dictated Date/Time: 07/08/2018 9:46 AM
== END | disposition home or self-care (01) ==
LOC: C.CTS 09:35
PROVIDERS: ATTEND Surgery
DX: C34.90 Malignant neoplasm of unspecified part of unspecified bronchus or lung (principal); J43.9 Emphysema, unspecified; J94.8 Other specified pleural conditions; R91.8 Other nonspecific abnormal finding of lung field

== ENCOUNTER 2018-12-14 12:22 | Inpatient (IN) ==
[2018-12-14] MEDS ORDERED: ALBUTEROL 0.083% NEBU SOLN 3 ML VIAL NEB STA (12:57)
[2018-12-14] MEDS ORDERED: SODIUM CHLORIDE 0.9% 500 ML IV SCH (13:00)
[2018-12-14 13:18] LABS: Basophils # (auto) 0.02 K/uL (0-0.2); Basophils % (auto) 0.1 %; Hematocrit (blood only) 32.8 % (37-47); Hemoglobin 10.2 g/dL (12.0-16.0); Immature Granulocytes # (auto) 0.03 K/uL (0.00-0.02); Immature Granulocytes % (auto) 0.2 %; Lymphocytes # (auto) 0.46 K/uL (1.2-3.4); Lymphocytes % (auto) 3.3 %; Mean Corpuscular Hgb Conc 31.1 g/dL (32-36); Mean Corpuscular Volume 82.6 fL (80-100); Mean Platelet Volume 9.3 fL (7.4-10.4); Monocytes # (auto) 0.45 K/uL (0.11-0.59); Monocytes % (auto) 3.2 %; Neutrophils # (auto) 13.14 K/uL (1.4-6.5); Neutrophils % (auto) 93.2 %; Platelet Count 252 K/uL (130-400); RDW Coefficient of Variation 17.1 % (11.5-14.5); RDW Standard Deviation 50.5 fL (36.4-46.3); Red Blood Count 3.97 M/uL (4.2-5.4)
--- NOTE | 2018-12-14 13:24 | XRay Report ---
XR chest 1V portable CLINICAL HISTORY: Dyspnea dyspnea COMPARISON STUDY: 09/27/2018 FINDINGS: Interval left pneumonectomy. Mild hyper inflation of the right hemithorax and a professional fee coder y basis. Central catheter in superior vena cava. IMPRESSION: Interval left pneumonectomy. Right lung is considered clear. The above report was generated using voice recognition software. It may contain grammatical, syntax or spelling errors. Electronically signed by: Donavon Avitia M.D. 12/14/2018 1:22 PM
[2018-12-14 13:27] LABS: BUN Creatinine Ratio 15.3 (10-20); Calcium 9.1 mg/dl (8.5-10.1); Creatinine Clr Calc Pharmacy 43.1 ml/min; Est GFR (African American) 77.7; Potassium 3.8 mmol/L (3.5-5.1)
[2018-12-14 13:31] LABS: INR 1.3 (0.9-1.1); Partial Thromboplastin Ratio 1.3; Partial Thromboplastin Time 34.1 Seconds (21.0-31.0); Prothrombin Time 12.7 Seconds (9.0-12.0)
[2018-12-14 13:34] LABS: Albumin Globulin Ratio 0.6 (0.9-2); Bilirubin,Total 0.3 mg/dl (0.2-1); Globulin 4.8 gm/dl (2.5-4.0); Total Protein 7.8 gm/dl (6.4-8.2); Troponin I 0.041 ng/ml (0-0.045)
[2018-12-14 13:45] LABS: Base Excess VBG -0.7 mEq/L; Oxygen Saturation VBG 61.6 %; pH VBG 7.44 (7.36-7.41)
[2018-12-14 13:47] LABS: iSTAT Hemoglobin 10.5 g/dl (12.0-16.0); iSTAT Ionized Calcium 0.84 mmol/l (1.12-1.32)
[2018-12-14 13:59] LABS: Influenza A virus by PCR Neg for Influ A (Neg); Influenza B virus by PCR Neg for Influ B (Neg)
[2018-12-14] MEDS ORDERED: IOVERSOL 100ml IV PRN (15:30)
--- NOTE | 2018-12-14 15:50 | CT Scan Report ---
CHEST CTA for PULMONARY ARTERIES CT DOSE: 250.01 mGy.cm HISTORY: Positive d-dimer. Atypical chest pain. Shortness of breath. TECHNIQUE: Multiaxial CT images of the chest were performed following the intravenous administration of contrast to evaluate the pulmonary arteries. Maximal intensity projection images were also obtaine d. A dose lowering technique was utilized adhering to the principles of ALARA. COMPARISON STUDY: Chest 10/21/2018. FINDINGS: There again noted postoperative changes consistent with a left lower lobectomy. There has b een interval complete collapse of the left upper lobe/lung. This results in left mediastinal shift. T here appears to be mucoid material within the left upper lobe bronchus with fluid filling the majorit y of the left upper lobe bronchi. Bronchoscopy recommended for clearing of the expected mucous plug. Small left pleural effusion persists. No mediastinal or hilar lymphadenopathy. The heart is normal in size. Visualized liver and spleen are unremarkable. No suspicious lytic or blastic osseous lesions. No pneumothorax. Emphysema. Right apical scarring persists. There is no significant pulmonary lobular nodule within the right lower lobe on image 87. This favors a small focus of inflammatory/infectious change. Calcified granuloma the right lung apex is noted. Stable punctate subpleural nodules within the right upper lobe on image 215 and right lower lobe on image 101. Normal caliber thoracic aorta wi th no evidence for dissection. No filling defects within the pulmonary arteries to suggest pulmonary embolus. IMPRESSION: 1. No evidence for pulmonary embolus. 2. Postoperative changes consistent with a prior left lower lobectomy. 3. There has been interval complete collapse of the left upper lobe/lung. This results in left medias tinal shift. There appears to be mucoid material within the left upper lobe bronchus with fluid filli ng the majority of the left upper lobe bronchi. Bronchoscopy recommended for clearing of the expected mucous plug. 4. Small left pleural effusion persists. Electronically signed by: Juwan Lozano M.D. 12/14/2018 3:49 PM
[2018-12-14] MEDS ORDERED: RAPID SEQUENCE INDUCTION BAG ONE (16:40)
[2018-12-14] MEDS ORDERED: PROPOFOL IV EMULSION 10 MG/ML 100 ML VIAL IV ONE (16:51)
[2018-12-14] MEDS ORDERED: ACETAMINOPHEN 325 MG TAB PO PRN ×2 (16:52)
--- NOTE | 2018-12-14 17:06 | Emergency Department Note ---
Entered by Librado Alonso acting as a scribe for Toni Polk DO History of Present Illness General Chief complaint: Respiratory Distress Stated complaint: sob Source: patient Limitations: no limitations History of Present Illness Provider complaint: SOB/Chest Pain Onset (ago): hour(s) (10.5) Location: chest Pain Consistency: + intermittent Quality: + other (SOB, "sitting on chest" ) Associated symptoms: + chest pain; no nausea/vomiting Treatments prior to arrival: none The patient is a 73 year old female who presents to the Emergency Room with complaints of acute chest pain and shortness of breath. The patient states that she woke up from sleep this morning at 0200 with a pain in her right chest. She also felt as though her "breathing wasn't right" at this time. The patient notes that she now has a pain diffusely across her whole chest which she describes as "someone is sitting on my chest." She feels more short of breath as well. Upon EMS arrival the patient was 70% on room air, and denies wearing home oxygen at baseline. She denies any associated nausea, vomiting, arm pain, jaw pain, or dizziness. The patient does have a port in the chest secondary to lung cancer. She has not had any lobectomy procedures. She has no history of CHF. The patient is on Xarelto secondary to atrial fibrillation and has not missed any dosages. She is a current everyday smoker. Home Medications Home Medications Medication Instructions Recorded Confirmed Type acetaminophen 325 - 650 mg PO Q4 PRN 12/14/18 12/14/18 History alprazolam 0.5 mg PO DAILY 12/14/18 12/14/18 History ascorbic acid (vitamin C) [Vitamin 500 mg PO DAILY 12/14/18 12/14/18 History C] benzonatate 100 mg PO DIRECTED 12/14/18 12/14/18 History biotin 1,000 mcg PO DAILY 12/14/18 12/14/18 History cholecalciferol (vitamin D3) 5,000 unit PO DAILY 12/14/18 12/14/18 History [Vitamin D3] diltiazem HCl 240 mg PO DAILY 12/14/18 12/14/18 History docusate sodium [Colace] 100 mg PO BID PRN 12/14/18 12/14/18 History echinacea 500 mg PO DAILY PRN 12/14/18 12/14/18 History folic acid 1 mg PO DAILY 12/14/18 12/14/18 History gabapentin 100 mg PO HS 12/14/18 12/14/18 History methotrexate sodium 15 mg PO WK 12/14/18 12/14/18 History [id number] 1 cap PO DAILY 12/14/18 12/14/18 History [Macular Health Formula] rivaroxaban [Xarelto] 20 mg PO DAILY 12/14/18 12/14/18 History Allergies Allergy/AdvReac Type Severity Reaction Status Date / Time No Known Allergies Allergy Unverified 12/14/18 14:19 Past Med/Surg History Medical History Arthritis (Chronic) Atrial fibrillation with RVR Lung cancer Social History Current Living Situation: Alone Other Information That Helps Us Care for You: No Feels Safe at Home: Yes Safety Concerns: Feels Safe At This Time Smoking Status: Current every day smoker Tobacco Type: cigarettes Cigarettes per Day: 10 Hx Alcohol Use: No Hx Substance Use: No Beliefs That Will Affect Care: None Preferred Language: Kyrgyz Communication Ability: Effective [employer] Support [facility] Director Required: No Review of Systems See HPI for pertinent positives & negatives. and A total of 10 systems reviewed and were otherwise negative Physical Exam Vital Signs Vital Signs - 24 hr 12/14/18 12:20 12/14/18 12:40 12/14/18 13:41 Temperature 36.6 C Temperature Source Oral Sepsis Recent Fever Within 48 Hours No Sepsis Action Taken by Nursing No Action Required Pulse Rate 118 H 86 Pulse Rate [Apical] 111 H Pulse Rhythm [Apical] Pulse Strength [Apical] Respiratory Rate 24 20 22 Respiratory Effort / Characteristics Non-Labored Spontaneous Non-Labored Respiratory Depth Normal Normal Respiratory Pattern Tachypnea Blood Pressure 110/78 Blood Pressure [Left Arm] 145/87 H Blood Pressure Mean 88 Blood Pressure Mean [Left Arm] 106 Pulse Oximetry 70 L 88 L 93 Oxygen Delivery Method Room Air Room Air Non-rebreather Oxygen Flow Rate 5 15 12/14/18 14:16 12/14/18 15:43 12/14/18 16:01 Temperature Temperature Source Sepsis Recent Fever Within 48 Hours Sepsis Action Taken by Nursing Pulse Rate 108 H Pulse Rate [Apical] 112 H 105 H Pulse Rhythm [Apical] Regular Pulse Strength [Apical] Normal Respiratory Rate 24 21 22 Respiratory Effort / Characteristics Respiratory Depth Normal Respiratory Pattern Regular Blood Pressure 142/97 H Blood Pressure [Left Arm] 140/82 Blood Pressure Mean Blood Pressure Mean [Left Arm] 101 Pulse Oximetry 92 93 89 L Oxygen Delivery Method Non-rebreather Non-rebreather Non-rebreather Oxygen Flow Rate 15 15 12/14/18 16:33 Temperature 36.7 C Temperature Source Oral Sepsis Recent Fever Within 48 Hours Sepsis Action Taken by Nursing Pulse Rate Pulse Rate [Apical] 109 H Pulse Rhythm [Apical] Pulse Strength [Apical] Respiratory Rate 24 Respiratory Effort / Characteristics Respiratory Depth Respiratory Pattern Blood Pressure Blood Pressure [Left Arm] 146/73 H Blood Pressure Mean Blood Pressure Mean [Left Arm] 97 Pulse Oximetry 90 Oxygen Delivery Method Oxymask Oxygen Flow Rate 15 GENERAL: Sitting up in bed, alert, chronically ill appearing, cachectic, non- toxic EYE EXAM: normal conjunctiva. OROPHARYNX: no exudate, no erythema, lips, buccal mucosa, and tongue normal and mucous membranes are moist NECK: supple, no nuchal rigidity, no adenopathy, non-tender LUNGS: Diminished breath sounds throughout the left. Normal chest wall mechanics HEART: no murmurs, S1 normal and S2 normal ABDOMEN: abdomen soft, non-tender, normo-active bowel, sounds, no masses, no rebound or guarding. BACK: Back is symmetrical on inspection and there is no deformity, no midline tenderness, no CVA tenderness. SKIN: no rashes and no bruising UPPER EXTREMITIES: upper extremities are grossly normal. LOWER EXTREMITIES: No pitting edema. NEURO EXAM: Normal sensorium, cranial nerves II-XII grossly intact, normal speech, no gross weakness of arms, no gross weakness of legs. Course ED COURSE: Vital signs were reviewed and showed hypoxia and tachycardia. The patients medical record was reviewed The above diagnostic studies were performed and reviewed. ED treatments and interventions as stated above. 1237: The patient was evaluated in room A10. A complete history and physical examination was performed. 1439; I checked on the patient she was drinking water. She is hypoxic on the monitor. The patient is going ot CT. 1518: I reviewed the patient's case with Dr. Sam - [facility] Hospitalist. He will evaluate the patient for further management. 1526: Upon reevaluation, the patient is resting in bed. I discussed my findings with the patient and she understands and agrees with the treatment plan. Based on the patients age, coexisting illnesses, exam and lab findings the decision to treat as an inpatient was made. The patient remained stable while under my care. The patient will be evaluated for further management. Administered Medications Ioversol (Optiray 320 100ml) 94 ml IV ONCE PRN PRN Reason: Interaction Checking Stop: 12/18/18 15:29 Last Admin: 12/14/18 15:30 Dose: 1 ml Discontinued Medications Albuterol (Ventolin 0.083% 2.5mg/3ml) 5 mg NEB NOW STA Stop: 12/14/18 12:58 Last Admin: 12/14/18 13:21 Dose: 5 mg Sodium Chloride (Nss) 500 mls @ 999 mls/hr IV .Q31M SHARONA Stop: 12/14/18 13:30 Last Infusion: 12/14/18 14:00 Dose: 0 mls/hr Admin: 12/14/18 13:21 Dose: 999 mls/hr Medical Decision Making Differential Diagnosis Differential diagnosis: Etiologies such as infections, reactive airway disease, COPD, pneumonia, pleural effusion, pulmonary edema, ARDS, pneumothorax, CHF, cardiac ischemia, cardiac tamponade, dysrhythmia, anemia, pulmonary embolism, musculoskeletal, gastrointestinal process, as well as others were entertained. Medical Records Attestation: I reviewed the patient's medical records. Home Medications Current Medication List: was personally reviewed by me Laboratory Data Attestation: I reviewed the patient's lab results. Result diagrams: 12/14/18 12:05 12/14/18 12:05 Lab Results 12/14/18 12/14/18 12/14/18 Range/Units 12:05 12:05 12:05 WBC 14.10 H (4.8-10.8) K/uL RBC 3.97 L (4.2-5.4) M/uL Hgb 10.2 L (12.0-16.0) g/dL POC Hgb (12.0-16.0) g/dl Hct 32.8 L (37-47) % POC Hct (37-47) % MCV 82.6 (80-100) fL MCH 25.7 (25-34) pg MCHC 31.1 L (32-36) g/dL RDW Std Deviation 50.5 H (36.4-46.3) fL RDW Coeff of Jose 17.1 H (11.5-14.5) % Plt Count 252 (130-400) K/uL MPV 9.3 (7.4-10.4) fL Immature Gran % (Auto) 0.2 % Neut % (Auto) 93.2 % Lymph % (Auto) 3.3 % [place] % (Auto) 3.2 % Eos % (Auto) 0.0 % Baso % (Auto) 0.1 % Immature Gran # (Auto) 0.03 H (0.00-0.02) K/uL Neut # (Auto) 13.14 H (1.4-6.5) K/uL Lymph # (Auto) 0.46 L (1.2-3.4) K/uL [place] # (Auto) 0.45 (0.11-0.59) K/uL Eos # (Auto) 0.00 (0-0.5) K/uL Baso # (Auto) 0.02 (0-0.2) K/uL PT 12.7 H (9.0-12.0) Seconds INR 1.3 H (0.9-1.1) APTT 34.1 H (21.0-31.0) Seconds PTT Ratio 1.3 VBG pH (7.36-7.41) VBG pCO2 (38-50) mmHg VBG pO2 mmHg VBG HCO3 mmol/L VBG O2 Saturation % VBG Base Excess mEq/L Barometric Pressure mm/Hg POC Sodium (135-144) mEq/L Sodium (136-145) mmol/L POC Potassium (3.3-5.0) mEq/L Potassium (3.5-5.1) mmol/L POC Chloride (101-112) mEq/L Chloride (98-107) mmol/L Carbon Dioxide (21-32) mmol/L POC Total CO2 (24-31) mEq/l Anion Gap (3-11) POC Anion Gap (16-25) mmol/L POC BUN (7-18) mg/dl BUN (7-18) mg/dl Creatinine (0.6-1.2) mg/dl POC Creatinine (0.6-1.3) mg/dl Est Cr Clr Drug Dosing ml/min Est GFR ( Amer) Est GFR (Non-Af Amer) BUN/Creatinine Ratio (10-20) Glucose (70-99) mg/dl POC Glucose (other) (70-99) mg/dl POC Lactic Acid José Miguel (0.90-1.70) mmol/L Calcium (8.5-10.1) mg/dl POC Ioniz Calcium Miles (1.12-1.32) mmol/l Total Bilirubin (0.2-1) mg/dl AST (15-37) U/L ALT (12-78) U/L Alkaline Phosphatase (45-117) U/L Troponin I Cancelled Total Protein (6.4-8.2) gm/dl Albumin (3.4-5.0) gm/dl Globulin (2.5-4.0) gm/dl Albumin/Globulin Ratio (0.9-2) Influenza Type A (PCR) (Neg) Influenza Type B (PCR) (Neg) 12/14/18 12/14/18 12/14/18 Range/Units 12:05 13:15 13:29 WBC (4.8-10.8) K/uL RBC (4.2-5.4) M/uL Hgb (12.0-16.0) g/dL POC Hgb (12.0-16.0) g/dl Hct (37-47) % POC Hct (37-47) % MCV (80-100) fL MCH (25-34) pg MCHC (32-36) g/dL RDW Std Deviation (36.4-46.3) fL RDW Coeff of Jose (11.5-14.5) % Plt Count (130-400) K/uL MPV (7.4-10.4) fL Immature Gran % (Auto) % Neut % (Auto) % Lymph % (Auto) % [place] % (Auto) % Eos % (Auto) % Baso % (Auto) % Immature Gran # (Auto) (0.00-0.02) K/uL Neut # (Auto) (1.4-6.5) K/uL Lymph # (Auto) (1.2-3.4) K/uL [place] # (Auto) (0.11-0.59) K/uL Eos # (Auto) (0-0.5) K/uL Baso # (Auto) (0-0.2) K/uL PT (9.0-12.0) Seconds INR (0.9-1.1) APTT (21.0-31.0) Seconds PTT Ratio VBG pH (7.36-7.41) VBG pCO2 (38-50) mmHg VBG pO2 mmHg VBG HCO3 mmol/L VBG O2 Saturation % VBG Base Excess mEq/L Barometric Pressure mm/Hg POC Sodium (135-144) mEq/L Sodium 133 L (136-145) mmol/L POC Potassium (3.3-5.0) mEq/L Potassium 3.8 (3.5-5.1) mmol/L POC Chloride (101-112) mEq/L Chloride 101 (98-107) mmol/L Carbon Dioxide 21 (21-32) mmol/L POC Total CO2 (24-31) mEq/l Anion Gap 10.0 (3-11) POC Anion Gap (16-25) mmol/L POC BUN (7-18) mg/dl BUN 13 (7-18) mg/dl Creatinine 0.86 (0.6-1.2) mg/dl POC Creatinine (0.6-1.3) mg/dl Est Cr Clr Drug Dosing 43.1 ml/min Est GFR ( Amer) 77.7 Est GFR (Non-Af Amer) 67.0 BUN/Creatinine Ratio 15.3 (10-20) Glucose 139 H (70-99) mg/dl POC Glucose (other) (70-99) mg/dl POC Lactic Acid José Miguel 1.34 (0.90-1.70) mmol/L Calcium 9.1 (8.5-10.1) mg/dl POC Ioniz Calcium Miles (1.12-1.32) mmol/l Total Bilirubin 0.3 (0.2-1) mg/dl AST 11 L (15-37) U/L ALT 9 L (12-78) U/L Alkaline Phosphatase 82 (45-117) U/L Troponin I 0.041 Total Protein 7.8 (6.4-8.2) gm/dl Albumin 3.0 L (3.4-5.0) gm/dl Globulin 4.8 H (2.5-4.0) gm/dl Albumin/Globulin Ratio 0.6 L (0.9-2) Influenza Type A (PCR) Neg for Influ A (Neg) Influenza Type B (PCR) Neg for Influ B (Neg) 12/14/18 12/14/18 Range/Units 13:32 13:33 WBC (4.8-10.8) K/uL RBC (4.2-5.4) M/uL Hgb (12.0-16.0) g/dL POC Hgb 10.5 L (12.0-16.0) g/dl Hct (37-47) % POC Hct 31 L (37-47) % MCV (80-100) fL MCH (25-34) pg MCHC (32-36) g/dL RDW Std Deviation (36.4-46.3) fL RDW Coeff of Jose (11.5-14.5) % Plt Count (130-400) K/uL MPV (7.4-10.4) fL Immature Gran % (Auto) % Neut % (Auto) % Lymph % (Auto) % [place] % (Auto) % Eos % (Auto) % Baso % (Auto) % Immature Gran # (Auto) (0.00-0.02) K/uL Neut # (Auto) (1.4-6.5) K/uL Lymph # (Auto) (1.2-3.4) K/uL [place] # (Auto) (0.11-0.59) K/uL Eos # (Auto) (0-0.5) K/uL Baso # (Auto) (0-0.2) K/uL PT (9.0-12.0) Seconds INR (0.9-1.1) APTT (21.0-31.0) Seconds PTT Ratio VBG pH 7.44 H (7.36-7.41) VBG pCO2 35 L (38-50) mmHg VBG pO2 31 mmHg VBG HCO3 23 mmol/L VBG O2 Saturation 61.6 % VBG Base Excess -0.7 mEq/L Barometric Pressure 725.3 mm/Hg POC Sodium 134 L (135-144) mEq/L Sodium (136-145) mmol/L POC Potassium 4.4 (3.3-5.0) mEq/L Potassium (3.5-5.1) mmol/L POC Chloride 107 (101-112) mEq/L Chloride (98-107) mmol/L Carbon Dioxide (21-32) mmol/L POC Total CO2 20 L (24-31) mEq/l Anion Gap (3-11) POC Anion Gap 13.0 L (16-25) mmol/L POC BUN 14 (7-18) mg/dl BUN (7-18) mg/dl Creatinine (0.6-1.2) mg/dl POC Creatinine 0.7 (0.6-1.3) mg/dl Est Cr Clr Drug Dosing ml/min Est GFR ( Amer) Est GFR (Non-Af Amer) BUN/Creatinine Ratio (10-20) Glucose (70-99) mg/dl POC Glucose (other) 113 H (70-99) mg/dl POC Lactic Acid José Miguel (0.90-1.70) mmol/L Calcium (8.5-10.1) mg/dl POC Ioniz Calcium Miles 0.84 L (1.12-1.32) mmol/l Total Bilirubin (0.2-1) mg/dl AST (15-37) U/L ALT (12-78) U/L Alkaline Phosphatase (45-117) U/L Troponin I Total Protein (6.4-8.2) gm/dl Albumin (3.4-5.0) gm/dl Globulin (2.5-4.0) gm/dl Albumin/Globulin Ratio (0.9-2) Influenza Type A (PCR) (Neg) Influenza Type B (PCR) (Neg) Imaging Data Attestation: I personally reviewed and interpreted this imaging study as follows : Radiologist's Impression: CHEST CTA for PULMONARY ARTERIES CT DOSE: 250.01 mGy.cm HISTORY: Positive d-dimer. Atypical chest pain. Shortness of breath. TECHNIQUE: Multiaxial CT images of the chest were performed following the intravenous administration of contrast to evaluate the pulmonary arteries. Maximal intensity projection images were also obtained. A dose lowering technique was utilized adhering to the principles of ALARA. COMPARISON STUDY: Chest 10/21/2018. FINDINGS: There again noted postoperative changes consistent with a left lower lobectomy. There has been interval complete collapse of the left upper lobe/ lung. This results in left mediastinal shift. There appears to be mucoid material within the left upper lobe bronchus with fluid filling the majority of the left upper lobe bronchi. Bronchoscopy recommended for clearing of the expected mucous plug. Small left pleural effusion persists. No mediastinal or hilar lymphadenopathy. The heart is normal in size. Visualized liver and spleen are unremarkable. No suspicious lytic or blastic osseous lesions. No pneumothorax. Emphysema. Right apical scarring persists. There is no significant pulmonary lobular nodule within the right lower lobe on image 87. This favors a small focus of inflammatory/infectious change. Calcified granuloma the right lung apex is noted. Stable punctate subpleural nodules within the right upper lobe on image 215 and right lower lobe on image 101. Normal caliber thoracic aorta with no evidence for dissection. No filling defects within the pulmonary arteries to suggest pulmonary embolus. IMPRESSION: 1. No evidence for pulmonary embolus. 2. Postoperative changes consistent with a prior left lower lobectomy. 3. There has been interval complete collapse of the left upper lobe/lung. This results in left mediastinal shift. There appears to be mucoid material within the left upper lobe bronchus with fluid filling the majority of the left upper lobe bronchi. Bronchoscopy recommended for clearing of the expected mucous plug. 4. Small left pleural effusion persists. Electronically signed by: Juwan Lozano M.D. 12/14/2018 3:49 PM XR chest 1V portable CLINICAL HISTORY: Dyspnea dyspnea COMPARISON STUDY: 09/27/2018 FINDINGS: Interval left pneumonectomy. Mild hyper inflation of the right hemithorax and a compensatory basis. Central catheter in superior vena cava. IMPRESSION: Interval left pneumonectomy. Right lung is considered clear. The above report was generated using voice recognition software. It may contain grammatical, syntax or spelling errors. Electronically signed by: Donavon Avitia M.D. 12/14/2018 1:22 PM ECG Data Attestation: I personally reviewed and interpreted this ECG as follows: Indication: chest pain and SOB/dyspnea Rate (beats per minute): 117 Rhythm: sinus tachycardia Findings: + other (Normal axis) and + ST depression (anterior) Blood Pressure Blood Pressure Findings: Elevated blood pressure Blood Pressure Disposition: further management by hospitalist KATIE Narrative Patient is a 73-year-old that presents the ER for shortness of breath. Patient notes that the shortness of breath and chest pain started suddenly. On arrival she is found to be on 5 L satting in the low 80s. She was placed on a nonrebreather. Her pulse ox came up to the low 90s. When she talks or moves her pulse ox drops down into the high 70s. She does take Xarelto. Vitals show hypoxic, tachycardic and hypertension. Labs were obtained and showed a leukocytosis of 14,000. No significant anemia. Hemoglobin was 10. INR was 1.3. BMP along with LFTs was fairly unremarkable. Troponin was detectable but not positive at 0.041. Influenza was negative. Patient remained on nonrebreather throughout her stay in the ER. She was given a neb treatment. Chest x-ray was fairly unremarkable. CT a of the chest shows collapsed left upper lobe which I do favor is the likely cause of her hypoxia at this time. Updated the patient and daughter at bedside. Discussed with the hospitalist. Patient was admitted for collapsed left upper lobe with hypoxia down into the 70s on a nonrebreather satting in the low 90s. Impression & Plan Focal atelectasis, Hypoxia, Dyspnea Discharge Plan Visit Data *Final* Discharge Date/Time: 12/14/18 16:01 Chief Complaint: Respiratory Distress Stated Complaint: sob ED Provider: Toni Polk Discharge Problem: Focal atelectasis, Hypoxia, Dyspnea Patient Disposition: Admitted As Inpatient Discharge Instructions Interventions: ED Discharge Assessment Last Done: 12/14/18 16:01 The scribe's documentation has been prepared under my direction and personally reviewed by me in its entirety. I confirm that the note above accurately reflects all work, treatment, procedures, and medical decision making performed by me.
--- NOTE | 2018-12-14 17:16 | Procedure Note ---
Procedure Note Date of Service December 14, 2018 Procedure Date: Noted above Procedure: Endotracheal intubation Pre-procedure Diagnosis: Acute hypoxic respiratory failure, mucoid impaction of the bronchi to need for bronchoscopy Post-procedure Diagnosis: same as above Prior to Procedure: Informed Consent: risks and benefits were explained to the patient and informed consent have been obtained Attending Staff: Jimbo Gardner DO Indications: 73-year-old female with mucoid impaction and acute hypoxic respiratory failure needing bronchoscopy The identity of the patient was confirmed and a bedside time out was performed. Description of Procedure: Patient was evaluated and required intubation for impending respiratory failure. The patient was prepared in the usual fashion. A Sam to laryngoscope was used. A 7.5 endotrachial tube was placed endotracheally to 20 cm at the teeth. A grade 1 view was obtained. The endotracheal tube was noted to pass through the vocal cords. Chest rise was bilateral. Bilateral breath sounds were heard without air sounds in the abdomen. Mist was noted in the endotracheal tube. End-tidal CO2 measurement was positive. Chest x-ray shows proper endotracheal tube placement. Complications: None Findings: Not applicable Specimens: Not applicable Estimated blood loss: Zero
--- NOTE | 2018-12-14 17:26 | XRay Report ---
XR chest 1V portable HISTORY: s/p FOB intubation COMPARISON: Chest 12/14/2018. FINDINGS: Improved aeration within the left hemithorax consistent with resolving left upper lobe richie apse. Hazy appearance to the left lung may represent reexpansion edema. There still mild left mediast inal shift. Left subclavian Port-A-Cath terminates at the SVC. Endotracheal tube terminates 4 cm from the ewa. Small left pleural effusion. No pneumothorax. The right lung is clear. IMPRESSION: Improved aeration within the left hemithorax consistent with reexpansion of the left upper lobe colla pse. Satisfactory support line placement. Electronically signed by: Juwan Lozano M.D. 12/14/2018 5:25 PM
[2018-12-14] MEDS ORDERED: PROPOFOL 1,000 MG/100 ML VIAL IV SCH (17:45)
[2018-12-14] MEDS ORDERED: fentaNYL citrate 100 MCG/2 ML VIAL IV PRN (17:46)
[2018-12-14] MEDS ORDERED: RIVAROXABAN 15 MG TAB PO SCH (18:00)
--- NOTE | 2018-12-14 18:01 | History & Physical Report ---
Date of Service December 14, 2018 Assessment & Plan (1) Mucus plugging of bronchi: Seen on CTA chest on 12/14. Transferred to ICU with plan for bronchoscopy with Dr. Gardner. - Bronchoscopy - Airway management per pulm/cc - O2 PRN - Will check procalcitonin and MRSA swab to help determine if any antibiotics warranted. (2) Hypoxemia: Due to collapse of left upper lobe from mucu plug. - Plan as above (3) Atrial fibrillation: Paroxysmal as EKG on admission showed sinus tachycardia. - Continue diltiazem for rate control - Continue Xarelto for anticoagulation (per pharmacy, should really be on 15mg PO daily given her CrCl) (4) Rheumatoid arthritis: - Hold methotrexate while hospitalized. (5) Lung cancer: S/p LLL lobectomy in 09/2017 and 4 rounds of chemo per the patient. No sign of recurrence on the CTA chest on 12/14. - Outpatient follow up as normal unless bronchoscopy reveals mass or other concerning finding (6) DVT prophylaxis: Restart Xarelto after bronchoscopy History of Present Illness Primary Care Provider: Santa Reveles MD 73yo F w/ hx of lung cancer s/p LLL lobectomy in 09/2017 for cancer who presents with respiratory distress. Per the patient, she woke up ~2am with some left-sided chest pain, but went back to bed. When she woke up in the morning, she reports she had additional pain, but also was extremely shortness of breath. Not able to walk from one end of the room to the other which is unusual for her. Otherwise denies any exacerbating or relieving factors. Denies any fevers, chills, sweats, or other infectious symptoms. In the ED, CT scan done which showed mucus plug. Sent to the ICU for urgent bronch. Allergies Allergy/AdvReac Type Severity Reaction Status Date / Time No Known Allergies Allergy Unverified 12/14/18 14:19 Home Medications Home Medications Medication Instructions Recorded Confirmed Type acetaminophen 325 - 650 mg PO Q4 PRN 12/14/18 12/14/18 History alprazolam 0.5 mg PO DAILY 12/14/18 12/14/18 History ascorbic acid (vitamin C) [Vitamin 500 mg PO DAILY 12/14/18 12/14/18 History C] benzonatate 100 mg PO DIRECTED 12/14/18 12/14/18 History biotin 1,000 mcg PO DAILY 12/14/18 12/14/18 History cholecalciferol (vitamin D3) 5,000 unit PO DAILY 12/14/18 12/14/18 History [Vitamin D3] diltiazem HCl 240 mg PO DAILY 12/14/18 12/14/18 History docusate sodium [Colace] 100 mg PO BID PRN 12/14/18 12/14/18 History echinacea 500 mg PO DAILY PRN 12/14/18 12/14/18 History folic acid 1 mg PO DAILY 12/14/18 12/14/18 History gabapentin 100 mg PO HS 12/14/18 12/14/18 History methotrexate sodium 15 mg PO WK 12/14/18 12/14/18 History [id number] 1 cap PO DAILY 12/14/18 12/14/18 History [Macular Health Formula] rivaroxaban [Xarelto] 20 mg PO DAILY 12/14/18 12/14/18 History Past Med/Surg History Medical History Arthritis (Chronic) Atrial fibrillation with RVR Lung cancer Surgical History S/P lobectomy of lung LLL, in 09/2017 Family History Father Hypertension Social History Current Living Situation: Alone Other Information That Helps Us Care for You: No Feels Safe at Home: Yes Safety Concerns: Feels Safe At This Time Smoking Status: Current every day smoker Tobacco Type: cigarettes Cigarettes per Day: 10 Hx Alcohol Use: No Hx Substance Use: No Beliefs That Will Affect Care: None Preferred Language: [place] Communication Ability: Effective Systems Applications Programming Lead Required: No Review of Systems Constitutional: no fever, no chills and no sweats Eyes: no diplopia Ear, Nose, Mouth, Throat: no ear trauma, no nasal discharge and no dental pain Respiratory: + dyspnea and + dyspnea on exertion; no cough and no chest congestion Cardiovascular: no chest pain, no dyspnea on exertion, no palpitations and no syncope Gastrointestinal: no abdominal pain, no belching, no constipation, no diarrhea/ loose stools, no blood in stools and no melena Musculoskeletal: no back pain, no joint pain and no muscle weakness Integumentary: no rash, no skin ulcer and no erythema Neurologic: no generalized weakness, no loss of sensation, no numbness and no paresthesia Psychiatric: no depression and no anxiety Endocrine: no fatigue, no polydipsia and no polyphagia Physical Exam 2 Vital Signs (Past 24 Hours): Last Vital Signs Temp 36.7 C 12/14/18 16:33 Pulse 109 H 12/14/18 16:33 Resp 24 12/14/18 16:33 BP 146/73 H 12/14/18 16:33 Pulse Ox 90 12/14/18 16:33 Constitutional: WD/WN, vitals as above Eyes: EOM intact bilaterally; no conjunctival abnormality ENMT: external ear and nose normal, oropharynx normal Neck: trachea midline, no thyromegaly normal visual inspection Respiratory: normal respiratory effort, lungs clear to auscultation no respiratory distress Cardiovascular: Rate/Rhythm: regular rhythm and + tachycardic Heart Sounds : normal S1 and normal S2 Gastrointestinal (Abdomen): Inspection/Auscultation: abdomen normal to inspection; abdomen not distended Musculoskeletal: no cyanosis or clubbing, extremities motor strength 5/5 Skin: no rashes, warm and dry Neurologic: moves all extremities and awake Psychiatric: Orientation: alert, oriented to person and cooperative
[2018-12-14] MEDS ORDERED: VANCOMYCIN CONSULT ACTIVE PRN ×2 (18:39)
[2018-12-14] MEDS ORDERED: CEFEPIME CONSULT ACTIVE PRN (18:39)
[2018-12-14] MEDS ORDERED: CEFEPIME 1,000 MG in SYRINGE 0 ML IV SCH (18:45)
--- NOTE | 2018-12-14 18:54 | Consultation Report ---
DATE OF CONSULTATION: 12/14/2018 REASON FOR CONSULTATION: Left upper lobe collapse with mucoid impaction. HISTORY OF PRESENT ILLNESS: Ms. Mendoza is a pleasant 73-year-old and female well known to our service. The patient had a history of nonsmall cell lung cancer, for which she had undergone a left lower lobectomy. It should be noted that her pathologic staging was pT2a pN1 and she therefore required chemotherapy, which she subsequently completed following her surgical resection. Her left lower lobectomy was performed on 09/23/2017. The patient notes that she was doing well in her usual state of health, able to perform her activities of daily living over the past several weeks without any difficulties. When I questioned her further, she did note that she felt as though she had some more mucus production over the past 24-48 hours or maybe even the past week. The patient says that she did seem apparently fine yesterday; however, she woke up at approximately 2:00 a.m. this morning feeling short of breath. She did admit to some chest tightness even told 1 person she felt as though someone was sitting on her chest and she has shortness of breath with any exertion. Because of this, she presented to the Emergency Department. In the Emergency Department, she had labs, where her INR is 1.3. CBC revealed hemoglobin and hematocrit were 10.2 and 32.8. Her platelet count was within normal range and her white blood cell count was 14,000. Chemistry profile showed sodium, potassium, BUN, and creatinine were all within normal range. She had influenza nasopharyngeal swab sent, which was negative for influenza A and B. She did have a CT scan of her chest, which was negative for pulmonary emboli; however, left upper lobe lung atelectasis/collapse was noted and there was question on the part of the interpreting radiologist for mucoid impaction and a bronchoscopy was recommended, therefore, we were consulted. I visited the patient in the Emergency Department, she did seems to be resting comfortably in bed but did get somewhat short of breath with talking. I questioned the patient on numerous symptoms and she has not had any falls, head injuries, or visual changes. She denies any tinnitus or recent sore throat. She denies any fever, shakes, or chills and she denies any close contact with sick individuals. She said that she did get her flu shot this year and she said that her Pneumovax is up-to-date to the best of her knowledge. She denies any neck pain. She does note some chest tightness and she is also short of breath with even minimal exertion such as talking. She also notes some increased mucus production. She denies any weight loss. She denies any abdominal pain, nausea, vomiting, or diarrhea, but does note a poor appetite. She denies any myalgias or arthralgias. She denies history of PE. She denies anxiety or depression. As noted above, she is resting comfortably in her bed in the Emergency Department and seemed to be okay as long as she did not exert herself or talk very much. In the Emergency Department, the patient was admitted to [facility] by Dr. Sam of the hospitalist group and Dr. Gardner of the intensive care service was consulted and recommended admission to the ICU and Dr. Zimmer has subsequently been consulted for bronchoscopy. PAST MEDICAL HISTORY: 1. Nonsmall cell lung cancer as described above. 2. Atrial fibrillation. 3. COPD. 4. Hyperlipidemia. 5. Hypertension. 6. Rheumatoid arthritis. 7. Vitamin D deficiency. 8. Osteopenia. PAST SURGICAL HISTORY: 1. Endobronchial ultrasound. 2. History of left thoracentesis. 3. A-port placement. 4. Left lower lobectomy. ALLERGIES: She has no known medicine allergies. HOME MEDICATIONS: 1. As-needed Tylenol. 2. Xanax 0.5 mg daily. 3. Vitamin C 500 mg daily. 4. Benzonatate 100 mg daily. 5. Biotin 1000 mcg daily. 6. Vitamin D 5000 units daily. 7. Diltiazem 240 mg daily. 8. Colace 100 mg twice daily. 9. Echinacea 500 mg daily as needed. 10. Folic acid 1 mg daily. 11. Neurontin 100 mg at bedtime. 12. Methotrexate 15 mg each week. 13. Macular health formula 1 capsule daily. 14. Xarelto 20 mg daily. SOCIAL HISTORY: She does have a smoking history. FAMILY HISTORY: She does not report a family history of premature coronary artery disease. REVIEW OF SYSTEMS: As described above. PHYSICAL EXAMINATION: VITAL SIGNS: The patient's blood pressure is 142/97, her pulse is 108 and regular, her respirations are 22. They are somewhat labored with talking and exertion. Temperature is 36.6 and she is afebrile. Her pulse ox is 89% on 15 L nonrebreather. GENERAL: The patient is alert. She is oriented to time, place and person. She is in no distress but does seem to get short of breath and short winded with talking. HEENT: Head is atraumatic, normocephalic. EYES: Pupils equal, round react to light and accommodation. Extraocular motions are intact. EARS: Auditory acuity is grossly intact. NOSE: Nasal patency was intact. Sinuses are nontender. MOUTH: Has dry mucous membranes. NECK: Supple without tracheal shift. There is no stridor noted. CARDIOVASCULAR: Revealed irregular rate and rhythm. LUNGS: Revealed patient had markedly decreased breath sounds on the left side. She was not using accessory muscles to aid in respiration, but did appear to get short winded as noted before with talking. ABDOMEN: Soft, nondistended, and nontender. Palpation did not cause pain. EXTREMITIES: Revealed no cyanosis, clubbing, or edema. She had palpable posterior tibial pulses bilaterally. NEUROLOGIC: Revealed cranial nerves II through XII are grossly intact. No focal deficits are noted. DIAGNOSTIC DATA: As noted above. IMPRESSION: A 73-year-old female with hypoxemia and shortness of breath. PLAN: Based on patient's CT scan, it looks as though she may have mucoid impaction of her remaining left lung, resulting in left upper lobe collapse. Dr. Zimmer is planning on performing a flexible bronchoscopy in the intensive care unit. I have obtained informed consent from the patient and performed conscious sedation for this procedure. I outlined the risks and benefits with the patient. Risks include but are not limited to bleeding, infection, and pneumothorax. The benefits include relieving mucoid impaction, which will hopefully make her respiratory status improved. Additional recommendations made based on her bronchoscopy when it is completed and we will continue following while she is in the hospital.
[2018-12-14] MEDS ORDERED: LEVOFLOXACIN CONSULT ACTIVE PRN (18:59)
[2018-12-14] MEDS ORDERED: LEVOFLOXACIN/D5W 750 MG/150 ML BAG IV SCH (19:00)
[2018-12-14] MEDS: CEFEPIME 2,000 MG in SYRINGE 7.5 ML IV SCH (19:17)
--- NOTE | 2018-12-14 19:20 | Pharmacy Report ---
Pharmacy Abx Initial Consult - Date of Service December 14, 2018 - Pharmacy Dosing Scope Date of Consult: 12/14/18 Consultation requested by: Dr. Gardner Pharmacy is consulted to initiate VANCOMYCIN / CEFEPIME / LEVAQUIN IV dosing therapy, order appropriate labs and adjust drug dose/frequency. - Subjective The patient is a 73 year old F admitted on 12/14/18 15:24. - Objective Height: 4 ft 11 in Weight: 50.4 kg Vital Signs (Past 12hrs): Vital Signs Temp Pulse Pulse Resp BP BP Pulse Ox 12/14/18 18:15 103 H 26 H 73 L 12/14/18 18:01 96 H 123/45 L 100 12/14/18 18:00 97 H 100 12/14/18 17:50 83 23 99 12/14/18 17:48 89 130/44 L 100 12/14/18 17:45 90 100 12/14/18 17:37 88 118/45 L 100 12/14/18 17:31 83 113/54 L 100 12/14/18 17:30 85 100 12/14/18 17:26 83 87/39 L 100 12/14/18 17:24 83 80/37 L 99 12/14/18 17:21 85 78/40 L 100 12/14/18 17:17 85 66/34 L 99 12/14/18 17:15 84 100 12/14/18 17:11 86 105/57 L 97 12/14/18 17:06 90 120/56 L 100 12/14/18 17:05 95 H 145/62 H 100 12/14/18 17:01 113 H 182/77 H 100 12/14/18 16:59 115 H 20 124/76 100 12/14/18 16:45 108 H 21 89 L 12/14/18 16:33 36.7 C 109 H 24 146/73 H 90 12/14/18 16:30 109 H 23 89 L 12/14/18 16:20 113 H 28 H 146/73 H 83 L 12/14/18 16:01 108 H 22 142/97 H 89 L 12/14/18 16:00 108 H 21 92 12/14/18 15:43 105 H 21 93 12/14/18 14:16 112 H 24 140/82 92 12/14/18 13:41 111 H 22 145/87 H 93 12/14/18 12:40 36.6 C 86 20 110/78 88 L 12/14/18 12:20 118 H 24 70 L Lab Results (24hrs): Laboratory Tests (24 Hours) 12/14/18 12/14/18 12/14/18 17:25 12:05 12:05 WBC 14.10 H Neut # (Auto) 13.14 H Creatinine 0.86 Est Cr Clr Drug Dosing 43.1 Procalcitonin 0.34 Micro Results: 12/14/18 Unknown Gram Stain - Final Bronch Wash,Left Upper Lobe Bronchoalveolar Lavage Culture - Pending 12/14/18 Unknown Fungal Smear - Final Bronch Wash,Left Upper Lobe Fungal Culture - Pending 12/14/18 Unknown Acid Fast Bacilli Smear - Pending Bronch Wash,Left Upper Lobe Acid Fast Bacilli Culture - Pending - Assessment & Plan Assessment 73 year old F ordered VANCOMYCIN / CEFEPIME / LEVAQUIN for PNA. Renal function is good, and at baseline Plan Vancomycin IV * Estimated PK Parameters: Vd 0.7 L/kg, Jayson 0.04 hr-1, t1/2 17 hr * Loading dose: 1250mg (25 mg/kg) * Maintenance dose: 750mg IV (15 mg/kg) every 20 hours * Goal trough level for PNA : 15 to 20 mcg/mL * Trough level ordered for 12/17/18. Pharmacy will continue to follow and will adjust dose/frequency as necessary. Thank you.
--- NOTE | 2018-12-14 19:22 | Operative Report ---
DATE OF OPERATION: 12/14/2018 PREOPERATIVE DIAGNOSIS: Apparent mucous plugging, left lower lobe bronchus. POSTOPERATIVE DIAGNOSIS: Apparent mucous plugging, left lower lobe bronchus. PROCEDURE: Fiberoptic bronchoscopy. SURGEON: Quinton Zimmer MD PLACEMENT MANAGER: Rachel Mims. ANESTHESIA: Sedation. SPECIFICS OF PROCEDURE AND FINDINGS: Veronica Mendoza is a 73-year-old female whom I know well. She underwent a left lower lobectomy for a nonsmall cell lung carcinoma, has undergone postoperative treatment as her N1 nodes are positive. I just saw the patient about 6 weeks ago, and she looked great in the office. I was quite pleased with her and quite pleased with her CT scan. Patient states that she awoke at about 2 o'clock this morning, and she was having trouble breathing, came to the Emergency Room quite short of breath and hypoxic. CT scan showed complete collapse of her left upper lobe. I felt the patient needed a bronchoscopy. She was admitted to ICU. Saturations were in the 80s on supplemental oxygen even though she was awake, alert, and stable otherwise hemodynamically. I felt that intubation would be best. Dr. Juliocesar Gardner kindly intubated her without difficulty, it was 7.5 endotracheal tube. I then performed a bronchoscopy through this. She had clear white sputum, which was very thick and tenacious, and I suctioned this out to clear her airway. I did not see any endobronchial lesions; however, the mucosa was inflamed along the left lower lobe. I saw my staple line from the left upper lobe. We irrigated this clear quite easily. Cytology specimens as well as microbiology specimens were sent. She tolerated it well. DESCRIPTION OF PROCEDURE: With the patient in supine position, a 7.5 cm endotracheal tube in place, a timeout was called. I then placed the fiberoptic bronchoscope through the endotracheal tube adapter without difficulty. Her trachea was clear. I went down to the right side, and she really had very little sputum except for a small amount in the middle lobe. This was suctioned clear quite quickly. The upper lobe orifice and tertiary bronchi as well as the middle lobe and the lower lobe were all clear and free of any erythema or edema. Going down to the left side, there was thick clear white fluid, which was very tenacious. I suctioned this, and I could not get all of it out, it occluded the fiberoptic scope. I had to pull it out, flush it, and then go back in. We finally got this cleared out, and we sent the specimen for microbiology, which is fairly thick. We then irrigated this after we had suctioned out all of the sputum and we were getting clear saline back. I suctioned her dry and then did a washing for cytology. Again, I was quite pleased with both sides. She had no bleeding. I saw no endobronchial lesions, but I was a bit concerned about the inflammation along the left side. We will see how she looks over the next couple of days. I discussed this with Dr. Gardner, and we will leave her intubated. I attest to the content of the Intraoperative Record and any orders documented therein. Any exception s are noted below.
[2018-12-14] MEDS ORDERED: VANCOMYCIN HCL 1,250 MG in SODIUM CHLORIDE 0.9% 250 ML IV ONE (19:30)
[2018-12-14] MEDS: ALPRAZolam 0.5 MG TABLET PO SCH (20:51)
[2018-12-14] MEDS ORDERED: GABAPENTIN 100 MG CAP PO SCH (21:00)
--- NOTE | 2018-12-14 23:20 | Critical Care Progress Note ---
Date of Service December 14, 2018 Supervising Physician Co-Signing Physician Notes I was made aware of the IV contrast infiltration. Please see follow-up wound care notes as well as procedure note. Subjective I was approached by nursing staff as the patient was having continued swelling with new bulla to the LEFT hand after IV contrast infiltration. On evaluation, the hand is edematous with multiple serosanguineous areas of bullae noted to the dorsal surface of the hand. The patient does have some decrease in range of motion secondary to edema. Capillary refill remains brisk. Pulse oximetry reading remains in the high 90% on probe placed on the middle digit. Patient had near 100% accuracy with two-point discrimination throughout all digits and proximally into the hand. She complains of a swelling full sensation, but denies any pain or paresthesia. Orders were placed for bacitracin dressing as well as communication order for continued monitoring of the circumferential portion of the wrist. We will continue to monitor. If changes are noted including worsening edema or signs/symptoms of compartment syndrome, will emergently consult orthopedic surgery. Otherwise, will consider orthopedic consultation tomorrow pending further evaluation throughout the night. Physical Exam 2 Vital Signs (Past 24 Hours): Last Vital Signs Temp 36.6 C 12/14/18 20:00 Pulse 97 H 12/14/18 22:00 Resp 22 12/14/18 22:00 BP 137/58 L 12/14/18 22:00 Pulse Ox 96 12/14/18 22:00
[2018-12-14] MEDS: SODIUM CHLORIDE 0.9% 1000ML 1,000 ML IV SCH (23:31)
[2018-12-15] MEDS: MUPIROCIN 2% OINT 22 GM TUBE EXT SCH ×3 (00:15→11:43)
[2018-12-15 04:38] LABS: Hematocrit (blood only) 27.5 % (37-47); Hemoglobin 8.5 g/dL (12.0-16.0); Mean Corpuscular Hgb Conc 30.9 g/dL (32-36); Mean Corpuscular Volume 82.6 fL (80-100); Mean Platelet Volume 9.2 fL (7.4-10.4); Platelet Count 211 K/uL (130-400); RDW Coefficient of Variation 17.2 % (11.5-14.5); RDW Standard Deviation 51.1 fL (36.4-46.3); Red Blood Count 3.33 M/uL (4.2-5.4); White Blood Count 11.14 K/uL (4.8-10.8)
[2018-12-15 04:56] LABS: Calcium 8.2 mg/dl (8.5-10.1); Creatinine Clr Calc Pharmacy 52.6 ml/min; Est GFR (African American) 102.1; Est GFR (Non-African American) 88.1; Magnesium 1.9 mg/dl (1.8-2.4)
--- NOTE | 2018-12-15 07:57 | XRay Report ---
XR chest 1V portable HISTORY: hypoxia COMPARISON: Chest 12/14/2018. FINDINGS: No pneumothorax. Small left pleural effusion persists. Improved aeration within the left kathy ng with continued reexpansion. The heart is normal in size. Suture material within the left lung apex persists. Prior left lower lobectomy. Left subclavian Port-A-Cath terminates at the SVC. IMPRESSION: Improved aeration within the left lung with continued reexpansion. Electronically signed by: Juwan Lozano M.D. 12/15/2018 7:56 AM
[2018-12-15] MEDS ORDERED: dilTIAZem HCL 240 MG CAPCR PO SCH (09:00)
[2018-12-15] MEDS: CEFEPIME 2,000 MG in SYRINGE 7.5 ML IV SCH (09:29)
[2018-12-15] MEDS: ALPRAZolam 0.5 MG TABLET PO SCH (09:54)
[2018-12-15] MEDS: SODIUM CHLORIDE 0.9% 1000ML 1,000 ML IV SCH (10:03)
[2018-12-15] MEDS ORDERED: fentaNYL citrate 100 MCG/2 ML VIAL IV ONE ×2 (10:45→15:43)
--- NOTE | 2018-12-15 11:06 | Discharge Summary ---
Date of Service December 15, 2018 Admission HPI Per Admitting Provider 73yo F w/ hx of lung cancer s/p LLL lobectomy in 09/2017 for cancer who presents with respiratory distress. Per the patient, she woke up ~2am with some left-sided chest pain, but went back to bed. When she woke up in the morning, she reports she had additional pain, but also was extremely shortness of breath. Not able to walk from one end of the room to the other which is unusual for her. Otherwise denies any exacerbating or relieving factors. Denies any fevers, chills, sweats, or other infectious symptoms. In the ED, CT scan done which showed mucus plug. Sent to the ICU for urgent bronch. Admission Exam Per Admitting Provider Constitutional: WD/WN, vitals as above Eyes: EOM intact bilaterally; no conjunctival abnormality ENMT: external ear and nose normal, oropharynx normal Neck: trachea midline, no thyromegaly normal visual inspection Respiratory: normal respiratory effort, lungs clear to auscultation no respiratory distress Cardiovascular: Rate/Rhythm: regular rhythm and + tachycardic Heart Sounds : normal S1 and normal S2 Gastrointestinal (Abdomen): Inspection/Auscultation: abdomen normal to inspection; abdomen not distended Musculoskeletal: no cyanosis or clubbing, extremities motor strength 5/5 Skin: no rashes, warm and dry Neurologic: moves all extremities and awake Psychiatric: Orientation: alert, oriented to person and cooperative Principal Diagnosis Lung mucus plugging Discharge Exam General Appearance: Awake, alert & oriented, pleasantly conversational, comfortable in general, NAD. CV: +S1S2 RRR, no murmur. Pulm: Clear to auscultation throughout. On room air. Abdomen: +BS, soft, non-tender, non-distended. Extremities: No pedal edema or calf tenderness. Moving all extremities naturally and easily (though see left hand). - There are two large blisters over the dorsal left hand. Minimal surrounding erythema. Since de-roofed and dressed with xeroform. Neuro: No gross neuro deficits. Discharge Data Allergies Allergy/AdvReac Type Severity Reaction Status Date / Time No Known Allergies Allergy Unverified 12/14/18 14:19 Consultations Thoracic surgery Wound care DATE OF OPERATION: 12/14/2018 PREOPERATIVE DIAGNOSIS: Apparent mucous plugging, left lower lobe bronchus. POSTOPERATIVE DIAGNOSIS: Apparent mucous plugging, left lower lobe bronchus. PROCEDURE: Fiberoptic bronchoscopy. SURGEON: Quinton Zimmer MD Ordered Studies CTA chest on 14 December 2018 IMPRESSION: 1. No evidence for pulmonary embolus. 2. Postoperative changes consistent with a prior left lower lobectomy. 3. There has been interval complete collapse of the left upper lobe/lung. This results in left mediastinal shift. There appears to be mucoid material within the left upper lobe bronchus with fluid filling the majority of the left upper lobe bronchi. Bronchoscopy recommended for clearing of the expected mucous plug. 4. Small left pleural effusion persists. Single view chest x-ray on 15 December 2018 IMPRESSION: Improved aeration within the left lung with continued reexpansion. Hospital Course (1) Mucus plugging of bronchi: 73-year-old female was admitted on 14 December 2018 for respiratory distress. 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 Has a history of disc disease. Is on her home scheduled Xanax. Pulm: Concerns for left upper lobe collapse and mucous plugging on CTA chest. underwent bronchoscopy (see related thoracic notes). Later extubated, doing well on room air. [facility] lung cancer s/p LLL lobectomy Sep 2017 and chemo. - Plan for follow-up with thoracic surgery with goal for appointment on Thursday. CVS: No acute issues. Paroxysmal A. fib, but in NSR here. On diltiazem and Xarelto (renal dosing). Does have prolonged QTc 450. ID: Afebrile, improving leukocytosis, negative pro-calcitonin, influenza negative. Bronchoscopy cultures pending, though initial result is gram positive cocci. Started on empiric Levaquin, cefepime, and vancomycin. - Sending home on levaquin 750 mg PO q 7 pm daily. Endo: No known diabetes or thyroid disease. Renal/Lytes: Normal creatinine. Borderline low magnesium. - Sending home on mag oxide 400 mg PO q AM. GI: No known underlying disease. Tolerating PO at time of hospital d/c. Heme: Admit Hb 10.2 (around baseline anemia), a bit lower (9.2) on discharge, likely dilutional. Recommended close follow-up as outpatient. DVT prophy: On Xarelto for prior afib. Skin/MSK: Concern for infiltration of CT contrast in the left hand. Seen by wound care as inpatient. Blisters were de-roofed. Applied Xeroform and recommended daily dressing changes. F/u in wound clinic 05Feb at 9 am. PMH rheumatoid arthritis, held methotrexate as inpatient. D/c plan: F/u with thoracic surgery, PCM, and wound care clinic. (2) Shortness of breath: (3) Pneumonia: (4) Atrial fibrillation: (5) Prolonged QT interval: (6) Anemia: (7) Blister: (8) Rheumatoid arthritis: Total Time Total Time Spent Total Time Spent (In Minutes): > 30 min Discharge Plan Discharge Items Patient Disposition: Home - Self-Care Reason For Visit: SOB Discharge Diagnosis: SOB, Pneumonia, left hand wound Discharge Goals: Decrease discomfort and Improve function Activity: Resume your previous activity Non-emergency contact: Primary Care Provider Call non-emergency contact if: your symptoms worsen Follow-up/Referrals: Santa Yuan MD [Primary Care Provider] - 12/22/18 11:40 am (Please, follow up with Dr. Reveles on ThursdayDecember 22 at 11:40 am. *If you need to change this appointment, call the office at [phone].) Diet: Regular Addtl Provider Instructions: You were admitted to the hospital on December 14, for shortness of breath. While in the hospital we addressed the following issues: Shortness of breath: After getting a CT scan of your chest, it was noted that there was a large plug in a part of your lung preventing that part of your lungs from getting any oxygen. You underwent a procedure called a bronchoscopy with thoracic surgery. They were able to remove that plug. Since that time, your breathing has significantly improved. It is important that you use the incentive spirometer (the small breathing machine that encourages you to take a deep breath) about four times per day for the next week. After this please use it 1-2 times per day. Possible lung infection: We did some tests to look for an infection in your lungs. The final results of these tests are not yet available. However, they do suggest you may have the equivalent of pneumonia. We recommend that you take an antibiotic called Levaquin once a day at 7 PM. It is important that you take it at the same time every day for the next five days. You can follow- up with your doctor on the final results of some of these related tests. Low magnesium: We checked your blood for various electrolytes including magnesium. We recommend that you start a magnesium supplement called magnesium oxide. Please take this once a day in the morning, preferably around 7 AM. This will help work with your antibiotic as well. Low blood counts: You have a known history of low blood counts, also called anemia. We checked those while here in the hospital. At the time of your discharge it had trended downwards. This is not currently at a dangerous level , however we do want to watch to see that it goes back up. There is some increased risk of bleeding as well because of your Xarelto blood thinner. It is important that you follow-up with your doctor for recheck of your blood counts to make sure that they went back up. You are being sent home on an iron supplement as well. Take the iron with a glass of orange juice twice daily. You may have to take the iron for 3-4 months. The iron will make your stools dark and may cause constipation. Please talk to your family doctor about a referral to a GI (gastrointestinal) specialist as they may recommend a colonoscopy, upper endoscopy, etc to rule out GI bleeding. Left hand wound: As you know, there was some injury to the tissue of your left hand related to the IV that was there. Both the ICU team and wound care team evaluated your hand on the day of discharge. They recommend that you do daily dressing changes with Xeroform (the yellow gauze) and Kerlix (the white gauze on top). Please follow up with them on December 21 at 9 am. Overall, it is important that you follow-up with Dr. Zimmer of the thoracic surgery service as soon as possible, preferably on December 17. Please also follow-up with your primary care provider for overall post-hospital continuity of care and the wound care service as well. Please return to the nearest emergency department if you develop any return of your difficulty breathing, any chest pains, any concerns about an infection in your hands or difficulty moving her hand/wrist, or with any other emergent concerns. Prescriptions: New magnesium oxide 400 mg (241.3 mg magnesium) Tablet 400 mg PO QAM 7 Days Qty: 7 RF: 0 levofloxacin 750 mg Tablet 750 mg PO DAILY@1900 5 Days Qty: 5 RF: 0 ferrous sulfate 325 mg (65 mg iron) tablet 325 mg PO BID Qty: 60 RF: 2 Continue acetaminophen 325 mg Tablet 325 - 650 mg PO Q4 PRN (Reason: Unknown) RF: 0 diltiazem HCl 240 mg Capsule,Extended Release 24 Hr 240 mg PO DAILY RF: 0 alprazolam 0.5 mg Tablet 0.5 mg PO DAILY RF: 0 ascorbic acid (vitamin C) [Vitamin C] 500 mg Tablet 500 mg PO DAILY RF: 0 methotrexate sodium 2.5 mg Tablet 15 mg PO WK RF: 0 benzonatate 100 mg Capsule 100 mg PO DIRECTED RF: 0 echinacea 500 mg Capsule 500 mg PO DAILY PRN (Reason: Cold Sores) RF: 0 docusate sodium [Colace] 100 mg Capsule 100 mg PO BID PRN (Reason: CONSTIPATION) RF: 0 folic acid 1 mg Tablet 1 mg PO DAILY RF: 0 gabapentin 100 mg Capsule 100 mg PO HS RF: 0 cholecalciferol (vitamin D3) [Vitamin D3] 5,000 unit Tablet 5,000 unit PO DAILY RF: 0 rivaroxaban [Xarelto] 20 mg Tablet 20 mg PO DAILY RF: 0 biotin 1,000 mcg Tablet,Chewable 1,000 mcg PO DAILY RF: 0 [id number] [Macular Health Formula] 5-1-7.5 mg Capsule 1 cap PO DAILY RF: 0 Stand-Alone Forms: [facility] Discharge Orders: Discharge Order (Routine); Ordered 12/15/18 Ordered By: Junior Ramirez Admission Data Admit Date/Time: 12/14/18 15:24 Attending Provider: Shahid Graves Admit Provider: Geovanni Sam Primary Care Provider: Santa Yuan V. Other Providers: Juliocesar Gardner Service: Intensive Care Unit Other Interventions: Discharge Summary Assessment (RN) Last Done: 12/15/18 14:41 DC Date/Time DO NOT enter until pt leaves facility: 12/15/18 15:44 Supervising Physician Co-Signing Physician Notes Dr. Ramirez was resident physician during care of patient. I separately evaluated patient for swan portions of the history and the exam. I was present during the critical portion of medical decision making, and I discussed the case with the resident. I generally agree with the findings and plan. I agree with the findings and the disposition of the patient. Resident Activity Tracking Resident Involvement: Resident Care Provided Care Provided: Adult Hospital Medicine
[2018-12-15 11:34] LABS: Hematocrit (blood only) 29.6 % (37-47); Hemoglobin 9.2 g/dL (12.0-16.0)
[2018-12-15 12:24] LABS: Folate (Folic Acid) 19.96 ng/ml (>5.38)
[2018-12-15] MEDS ORDERED: SUCCINYLCHOLINE CHLORIDE 20 MG/ML 10 ML VIAL IV ONE (15:43)
[2018-12-15] MEDS ORDERED: VANCOMYCIN HCL 750 MG in SODIUM CHLORIDE 0.9% 250 ML IV SCH (16:00)
[2018-12-15] MEDS ORDERED: levoFLOXacin 750 MG TAB PO SCH (19:00)
--- NOTE | 2018-12-15 19:10 | Procedure Note ---
Procedure Note Date of Service December 15, 2018 Procedure Date: Noted above Procedure: Local wound debridement Pre-procedure Diagnosis: IV contrast infiltration Post-procedure Diagnosis: same as above Attending Staff: Jimbo Gardner DO Indications: Patient is a 73-year-old female who had local infiltration in her dorsum of her left hand. The patient had large bullae that needed unroofing for follow-up with the wound clinic The identity of the patient was confirmed and a bedside time out was performed. Description of Procedure: Patient was given 25 mcg fentanyl and with an 11 blade #4 bullae were totally unroofed revealing pink viable tissue beneath. Clear serous fluid also drained , there is no evidence of purulence Complications: None Findings: Not applicable Specimens: Not applicable Estimated blood loss: Zero
--- NOTE | 2018-12-15 19:11 | Critical Care Consultation ---
Date of Consultation December 14, 2018 Assessment & Plan (1) Mucus plugging of bronchi: 73-year-old female was admitted on 14 December 2018 for respiratory distress. 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 Has a history of disc disease. Is on her home scheduled Xanax. Pulm: Acute hypoxic respiratory failure Mucoid impaction of the left bronchi CVS: History of paroxysmal A. fib, but in NSR here. On diltiazem and Xarelto (renal dosing). Does have prolonged QTc 450. ID: Starting cefepime Levaquin and vancomycin Endo: No known diabetes or thyroid disease. GI: No known underlying disease. Heme: Anemia DVT prophy: Xarelto for atrial fibrillation I have personally spent 40 minutes of critical care time in the direct management of this patient. This is a life/limb threatening event. This includes time spent evaluating patient, direct bedside care, chart review, placing orders, interpretation of diagnostic studies, discussion with consultants, patient, and/or family members regarding treatment decisions, as well as other required patient management activities. This time is exclusive of all separately billable procedures, and teaching time and separate from and in addition to any other critical care service time. (2) Shortness of breath: (3) Pneumonia: (4) Atrial fibrillation: (5) Prolonged QT interval: (6) Anemia: (7) Blister: (8) Rheumatoid arthritis: History of Present Illness Attending Physician: Geovanni Sam Patient is a 73-year-old female who underwent a left lobectomy for non-small cell lung cancer as well as radiation and chemotherapy which she has completed her treatment course. She presents today with increasing exertional dyspnea and was found to have total collapse of her remaining left lung. Since the patient requires bronchoscopy she was transferred to the ICU for acute hypoxic respiratory failure and need for bronchoscopy. Allergies Allergy/AdvReac Type Severity Reaction Status Date / Time No Known Allergies Allergy Unverified 12/14/18 14:19 Home Medications Home Medications Medication Instructions Recorded Confirmed Type acetaminophen 325 - 650 mg PO Q4 PRN 12/14/18 12/14/18 History alprazolam 0.5 mg PO DAILY 12/14/18 12/14/18 History ascorbic acid (vitamin C) [Vitamin 500 mg PO DAILY 12/14/18 12/14/18 History C] benzonatate 100 mg PO DIRECTED 12/14/18 12/14/18 History biotin 1,000 mcg PO DAILY 12/14/18 12/14/18 History cholecalciferol (vitamin D3) 5,000 unit PO DAILY 12/14/18 12/14/18 History [Vitamin D3] diltiazem HCl 240 mg PO DAILY 12/14/18 12/14/18 History docusate sodium [Colace] 100 mg PO BID PRN 12/14/18 12/14/18 History echinacea 500 mg PO DAILY PRN 12/14/18 12/14/18 History folic acid 1 mg PO DAILY 12/14/18 12/14/18 History gabapentin 100 mg PO HS 12/14/18 12/14/18 History methotrexate sodium 15 mg PO WK 12/14/18 12/14/18 History [id number] 1 cap PO DAILY 12/14/18 12/14/18 History [Macular Health Formula] rivaroxaban [Xarelto] 20 mg PO DAILY 12/14/18 12/14/18 History ferrous sulfate 325 mg PO BID #60 tab 12/15/18 Rx levofloxacin 750 mg PO DAILY@1900 5 Days #5 tab 12/15/18 Rx magnesium oxide 400 mg PO QAM 7 Days #7 tab 12/15/18 Rx Patient History Medical History Arthritis (Chronic) Atrial fibrillation with RVR Lung cancer Surgical History S/P lobectomy of lung LLL, in 09/2017 Family History Father Hypertension Social History Current Living Situation: Alone Feels Safe at Home: Yes Smoking Status: Current every day smoker Tobacco Type: cigarettes Cigarettes per Day: 10 Hx Alcohol Use: No Hx Substance Use: No Beliefs That Will Affect Care: None Preferred Language: [place]aguayan Communication Ability: Effective Review of Systems Denies fevers chills. Positive exertional dyspnea denies chest pain. Physical Exam 2 Vital Signs (Past 24 Hours): Last Vital Signs Temp 36.3 C L 12/15/18 14:41 Pulse 85 12/15/18 14:41 Resp 22 12/15/18 14:41 BP 121/84 12/15/18 14:41 Pulse Ox 97 12/15/18 14:41 General: Well-nourished elderly female who appears her stated age I have reviewed the recorded vital signs Neurological: Mild anxiety regarding her health issues, Moves all 4 extremities , Psychological: GCS 15 following complex commands Eyes: Pupils are equal, round and reactive to light, anicteric sclera. Symmetrical lids. HENT: Oropharynx is clear, moist mucous membranes. Neck: Supple. Symmetric. trachea midline. No thyromegaly. Cardiovascular: Normal peripheral perfusion. Distal pulses and capillary refill intact. No JVD. Tachycardia Respiratory: Respirations labored, accessory muscle use. Absent breath sounds over left chest Gastrointestinal: Soft. Non-distended. Lymphatic: No cervical lymphadenopathy. Musculoskeletal: No deformity. Mild clubbing of the fingers
--- NOTE | 2018-12-15 20:45 | Hospitalist Progress Note ---
Date of Service December 15, 2018 Assessment & Plan (1) Acute respiratory failure with hypoxia: resolved. 2nd to MAU lung collapse due to mucous plug. s/p emergent bronchoscopy by Dr. Zmimer with removal of significant mucous plug. she is feeling well today, cxr is remarkably improved, and she has stable O2 sats. cultures thus far negative. Present on Admission?: Yes (2) Mucus plugging of bronchi: MAU - resolved s/p bronch. (3) Pneumonia: will Rx for community-acquired pneumonia of the left lung with levaquin course after discharge. cultures from bronch thus far negative. (4) Anemia: iron studies c/w iron deficiency anemia. start ferrous sulfate 325mg BID. recommend outpatient GI work-up to exclude occult blood loss. b12/folate wnl. repeat CBC is stable. (5) Rheumatoid arthritis: continue current medications. stable, no exacerbation at this time. (6) Atrial fibrillation: PAF, currently in sinus rhythm. cont xarelto daily for anticoagulation. (7) Hyponatremia: very mild, no symptoms. repeat BMP as outpatient for stability. from medical standpoint ok for d/c home. f/u PCP within 5-7 days. Subjective patient reports feeling better tele - sinus tach; patient states this is not unusual for her hoping to go home today did walk in the hallway with staff and did ok without dizziness or dyspnea mild cough but not terribly bothersome Constitutional: no fever and no chills Respiratory: + cough; no hemoptysis and no wheezing Cardiovascular: no chest pain Gastrointestinal: no abdominal pain Physical Exam 2 Vital Signs (Past 24 Hours): Last Vital Signs Temp 36.3 C L 12/15/18 14:41 Pulse 85 12/15/18 14:41 Resp 22 12/15/18 14:41 BP 121/84 12/15/18 14:41 Pulse Ox 97 12/15/18 14:41 Constitutional: average body habitus; no acute distress, not ill appearing and no altered mental status ENMT: external ear and nose normal, oropharynx normal Respiratory: Auscultation: + diminished lung sounds (minimal - left side); no crackles, no rhonchi and no wheezes Cardiovascular: Rate/Rhythm: regular rhythm and + tachycardic Heart Sounds : normal S1 and normal S2; no murmur Vessels: posterior tibial pulses present and dorsalis pedis pulses present; no JVD Extremities: no edema Gastrointestinal (Abdomen): normal bowel sounds, soft, nontender, no hepatosplenomegaly Psychiatric: A+Ox3, euthymic affect Results & Data Laboratory Results Laboratory Results - last 24 hr 12/14/18 12/15/18 12/15/18 23:09 04:18 04:18 WBC 11.14 H RBC 3.33 L Hgb 8.5 L Hct 27.5 L MCV 82.6 MCH 25.5 MCHC 30.9 L RDW Std Deviation 51.1 H RDW Coeff of Jose 17.2 H Plt Count 211 MPV 9.2 Sodium 134 L Potassium 4.0 Chloride 107 Carbon Dioxide 20 L Anion Gap 7.0 BUN 9 Creatinine 0.65 Est Cr Clr Drug Dosing 52.6 Est GFR ( Amer) 102.1 Est GFR (Non-Af Amer) 88.1 BUN/Creatinine Ratio 14.0 Glucose 87 POC Glucose 92 Calcium 8.2 L Magnesium 1.9 Iron TIBC Ferritin Vitamin B12 Folate 12/15/18 12/15/18 12/15/18 05:38 11:21 11:21 WBC RBC Hgb 9.2 L Hct 29.6 L MCV MCH MCHC RDW Std Deviation RDW Coeff of Jose Plt Count MPV Sodium Potassium Chloride Carbon Dioxide Anion Gap BUN Creatinine Est Cr Clr Drug Dosing Est GFR ( Amer) Est GFR (Non-Af Amer) BUN/Creatinine Ratio Glucose POC Glucose 107 H Calcium Magnesium Iron 15 L TIBC 234 L Ferritin 28.0 Vitamin B12 Folate 12/15/18 11:21 WBC RBC Hgb Hct MCV MCH MCHC RDW Std Deviation RDW Coeff of Jose Plt Count MPV Sodium Potassium Chloride Carbon Dioxide Anion Gap BUN Creatinine Est Cr Clr Drug Dosing Est GFR ( Amer) Est GFR (Non-Af Amer) BUN/Creatinine Ratio Glucose POC Glucose Calcium Magnesium Iron TIBC Ferritin Vitamin B12 407 Folate 19.96 _ (1) Rheumatoid arthritis Rheumatoid arthritis location: unspecified site Rheumatoid factor presence: unspecified presence Qualified Code(s): M06.9 - Rheumatoid arthritis, unspecified (2) Anemia Anemia type: iron deficiency Iron deficiency anemia type: unspecified iron deficiency Qualified Code(s): D50.9 - Iron deficiency anemia, unspecified (3) Atrial fibrillation Atrial fibrillation type: unspecified Qualified Code(s): I48.91 - Unspecified atrial fibrillation (4) Pneumonia Pneumonia type: due to unspecified organism Laterality: left Lung location: upper lobe of lung Qualified Code(s): J18.1 - Lobar pneumonia, unspecified organism
[2018-12-16] MEDS ORDERED: MAGNESIUM OXIDE 400 MG TAB PO SCH (09:00)
[2018-12-17] MEDS ORDERED: VANCOMYCIN TROUGH ONE (07:30)
== END 2018-12-15 15:44 | disposition home or self-care (01) | DRG 208 ==
LOC: ED 12:22 → 1E 15:24 → SUATTDRO 15:24 → 1E 16:01

== ENCOUNTER 2019-03-09 23:10 | Inpatient (IN) ==
[2019-03-09] MEDS ORDERED: ALBUT/IPRATROP 3MG/0.5MG NEB 3 ML VIAL NEB ONE (23:49)
[2019-03-10 00:16] LABS: Hematocrit (blood only) 27.8 % (37-47); Hemoglobin 8.7 g/dL (12.0-16.0); Mean Corpuscular Hgb Conc 31.3 g/dL (32-36); Platelet Count 167 K/uL (130-400); RDW Coefficient of Variation 17.5 % (11.5-14.5); RDW Standard Deviation 53.9 fL (36.4-46.3); Red Blood Count 3.31 M/uL (4.2-5.4); White Blood Count 6.22 K/uL (4.8-10.8)
[2019-03-10 00:21] LABS: Base Excess VBG 2.1 mEq/L; pH VBG 7.45 (7.36-7.41)
[2019-03-10 00:35] LABS: Alanine Aminotransferase 12 U/L (12-78); Albumin Level 1.9 gm/dl (3.4-5.0); Aspartate Aminotransferase 11 U/L (15-37); BUN Creatinine Ratio 25.4 (10-20); Bilirubin Direct 0.1 mg/dl (0-0.2); Blood Urea Nitrogen 19 mg/dl (7-18); Carbon Dioxide 26 mmol/L (21-32); Chloride 105 mmol/L (98-107); Creatinine Clr Calc Pharmacy 46.1 ml/min; Est GFR (Non-African American) 81.1; Glucose 109 mg/dl (70-99); Magnesium 1.8 mg/dl (1.8-2.4); Potassium 3.1 mmol/L (3.5-5.1); Sodium 137 mmol/L (136-145)
[2019-03-10 00:38] LABS: Alkaline Phosphatase 76 U/L (45-117); Bilirubin,Total 0.3 mg/dl (0.2-1); NT Pro B Type Natriuretic Pept 4627 pg/ml (0-900); Total Protein 6.9 gm/dl (6.4-8.2); Troponin I < 0.015 ng/ml (0-0.045)
[2019-03-10 00:50] LABS: Basophils # (auto) 0.01 K/uL (0-0.2); Basophils % (auto) 0.2 %; Eosinophils # (auto) 0.02 K/uL (0-0.5); Eosinophils % (auto) 0.3 %; Immature Granulocytes # (auto) 0.01 K/uL (0.00-0.02); Immature Granulocytes % (auto) 0.2 %; Lymphocytes # (auto) 0.89 K/uL (1.2-3.4); Lymphocytes % (auto) 14.3 %; Monocytes % (auto) 6.4 %; Neutrophils # (auto) 4.89 K/uL (1.4-6.5); Neutrophils % (auto) 78.6 %; RBC Morphology Unremarkable
[2019-03-10 01:41] LABS: Creatine Kinase 12 U/L (26-192)
[2019-03-10] MEDS ORDERED: POLYETHYLENE (MIRALAX) 17 GM PACK PO PRN (01:43)
[2019-03-10] MEDS ORDERED: ONDANSETRON INJ 2 MG/ML 2 ML VIAL IV PRN (01:43)
[2019-03-10] MEDS ORDERED: MAGNESIUM HYDROXIDE SUSP 30 ML UDC PO PRN (01:43)
[2019-03-10] MEDS ORDERED: ALUMINUM/MAGNESIUM SUSP 30 ML UDC PO PRN (01:43)
[2019-03-10 02:45] LABS: INR 1.7 (0.9-1.1); Partial Thromboplastin Ratio 1.7; Partial Thromboplastin Time 45.3 Seconds (21.0-31.0); Prothrombin Time 16.9 Seconds (9.0-12.0)
[2019-03-10] MEDS ORDERED: OPTIRAY 320 125ml IV PRN (02:59)
[2019-03-10] MEDS ORDERED: ALBUTEROL 0.083% NEBU SOLN 3 ML VIAL NEB PRN (03:13)
[2019-03-10] MEDS ORDERED: DOCUSATE SODIUM 100 MG CAP PO PRN (03:13)
[2019-03-10] MEDS ORDERED: BENZONATATE 100 MG CAPSULE PO PRN (03:13)
[2019-03-10] MEDS ORDERED: NITROGLYCERIN 2% OINTMENT 30GM TUBE EXT ONE (03:16)
[2019-03-10] MEDS ORDERED: FUROSEMIDE 40 MG in SYRINGE 0 ML IV ONE (03:20)
[2019-03-10] MEDS ORDERED: methylPREDNISolone 40 MG in SYRINGE 0 ML IV STA (03:21)
--- NOTE | 2019-03-10 03:40 | History & Physical Report ---
Date of Service March 10, 2019 Assessment & Plan (1) Dyspnea: 74 y/o F Hx COPD, AF, RA, history of lung CA - RLL lobectomy 2017, smoker. Presents with progressive SOB and orthopnea. Also states that she has been experiencing frequent falls and may have had 2 syncopal episodes over the past two weeks. During a fall a few weeks ago, she sustained a lumbar compression fracture. She states she recently developed lower extremity edema for which she was placed on Lasix. She was also provided with compression stockings and reports that she had developed a mild petechial rash over her distal lower extremities. She is anticoagulated with Xarelto and was also recently diagnosed with anemia for which she received a unit of PRBCs one week prior and was then scheduled for a colonoscopy and endoscopy in the coming week. She does not report any hematochezia or black stools. A relative at bedside reported her syncopal episode which she initially denied as she did not wish to remain in the hospital this evening. Initial labs are notable for an elevated CRP, stable anemia and an elevated BNP. A CXR and a CT chest both demonstrate vascular congestion. 1) SOB - this is likely multifactorial, however, new onset of CHF appears to be the predominant contributing factor. - CHF - type unspecified - placed on Lasix, I/O, daily weights. Echo pending, cardiology consult requested. - COPD - mild exacerbation is likley - placed on scheduled nebs and IV steroids 2) LE rash - unclear etiology - this is fairly mild so that we will observe for now. 3) Recent compression fracture and back pain with movement - PT/OT requested. She may need rehab placement as she lives alone. 4) Possible syncopal episodes - an echo is pending. She may need an ambulatory monitor. It is also possible that her syncope was related to anemia. 5) Anemia - stable - repeat Hb pending - no evidence fo active bleeding. She is due for a colonoscopy/endoscopy next week. If her Hb remains stable she can proceed as scheduled upon DC provided she is cleared by cardiology for anesthesia. 6) AF - cont Xarelto, Diltiazem, Metoprolol. 7) RA - high CRP is likely related to RA but may need further workup upon DC. Full code - Xarelto prophylaxis Total time for this admit including review of labs, meds, imaging, records - discussion with pt and ER attending - 45 min History of Present Illness Chief Complaint: Shortness of breath Primary Care Provider: Santa Yuan MD 74 y/o F Hx COPD, AF, RA, history of lung CA - RLL lobectomy 2017, smoker. Presents with progressive SOB and orthopnea. Also states that she has been experiencing frequent falls and may have had 2 syncopal episodes over the past two weeks. During a fall a few weeks ago, she sustained a lumbar compression fracture. She states she recently developed lower extremity edema for which she was placed on Lasix. She was also provided with compression stockings and reports that she had developed a mild petechial rash over her distal lower extremities. She is anticoagulated with Xarelto and was also recently diagnosed with anemia for which she received a unit of PRBCs one week prior and was then scheduled for a colonoscopy and endoscopy in the coming week. She does not report any hematochezia or black stools. A relative at bedside reported her syncopal episode which she initially denied as she did not wish to remain in the hospital this evening. Initial labs are notable for an elevated CRP, stable anemia and an elevated BNP. A CXR and a CT chest both demonstrate vascular congestion. PMH: 1) L lung CA - LLL Lobectomy 2017 followed by 4 cycles of chemotherapy. 2) RA - not currently treated 3) Chronic AF 4) Smoker Surgical: LLL lobectomy 2016 Social: Smokes up to a pack daily, does not drink alcohol. Employed at an [employer] Family: Mother due to lung CA Father - CAD, COPD, asbestosis Allergies Allergy/AdvReac Type Severity Reaction Status Date / Time No Known Allergies Allergy Verified 03/04/19 08:56 Home Medications Home Medications Medication Instructions Recorded Confirmed Type Xarelto 20 mg PO DAILY 12/14/18 03/10/19 History alprazolam 0.5 mg PO DAILY 12/14/18 03/10/19 History ascorbic acid (vitamin C) [Vitamin 500 mg PO DAILY 12/14/18 03/10/19 History C] benzonatate 100 mg PO TID PRN 12/14/18 03/10/19 History cholecalciferol (vitamin D3) 5,000 unit PO DAILY 12/14/18 03/10/19 History [Vitamin D3] diltiazem HCl 240 mg PO DAILY 12/14/18 03/10/19 History docusate sodium [Colace] 100 mg PO BID PRN 12/14/18 03/10/19 History echinacea 500 mg PO DAILY PRN 12/14/18 03/10/19 History Fluid Pill 1 dose PO DIRECTED 03/10/19 03/10/19 History acetaminophen 500 - 1,000 mg PO Q6H PRN 03/10/19 03/10/19 History tramadol 50 mg PO DAILY 03/10/19 03/10/19 History Past Med/Surg History Medical History Arthritis (Chronic) Atrial fibrillation with RVR Lung cancer Surgical History S/P lobectomy of lung LLL, in 09/2017 Family History Father Hypertension Social History Preferred Language: Czech Communication Ability: Effective Visual Impairment: No Limitations Hearing Ability: Normal Resident Medical Officer Required: No Beliefs That Will Affect Care: None Current Living Situation: Alone Other Information That Helps Us Care for You: No Feels Safe at Home: Yes Safety Concerns: Feels Safe At This Time Smoking Status: Current every day smoker Tobacco Type: cigarettes Cigarettes Per Day: 10-20 Do You Dip or Chew Tobacco: No Second Hand Exposure: No Tobacco Cessation Education Requested by Patient: No Hx Alcohol Use: No Hx Substance Use: No Review of Systems Review of Systems: Gen: Denies fevers, night sweats, rigors, fatigue, malaise, weight loss/gain ENT: Denies congestion, throat pain, hearing loss Eyes: Denies acute visual changes CV: Denies CP, palpitations Pulmonary: Progressive SOB - no cough GI: Denies N/V, diarrhea, constipation Neuro: Denies acute or unilateral weakness, acute gait impairment, headache or acute visual changes - relative reports 2 syncopal episodes over the past few weeks Musculoskeletal: She has severe back pain when trying to get up or sit up. Endocrine: Denies polydipsia, polyuria Skin: Reports mild petechial rash over lower extremities Physical Exam Physical Exam: General: PLeasant, eldelry F, AAO x 3, no distress ENT: No erythema or exudates, no thrush Eyes: ROBIN, EOMI Head and neck: Normocephalic, atraumatic - JVD present Chest/heart: Nontender, S1,2, iRR, no murmurs, no gallops Lungs: Poor air movement - no breath sounds at the bases, no clear wheezing Abdomen: Nontender, nondistended, BS+ Neuro: AAO x 3, speech is clear, no unilateral weakness or loss of sensation, coordination intact Musculoskeletal: Back pain is elicited when the pt is assisted with sitting up Skin: Mild petechial rash over LEs Extremities: No clubbing, cyanosis, edema Results & Data Vital Signs (Past 12 Hours) Vital Signs Temp Pulse Pulse Resp BP Pulse Ox Pulse Ox 03/10/19 01:30 99 H 18 162/75 H 97 03/10/19 01:19 93 03/10/19 01:00 91 H 26 H 158/57 H 100 03/10/19 00:31 93 H 17 157/58 H 100 03/10/19 00:05 88 24 165/90 H 95 03/10/19 00:03 91 H 22 95 03/09/19 23:31 97.5 F L 88 20 153/65 H 99 Diagnostic Findings CTA: No PE, consistent with CHF - BL pleural effusions (1) Dyspnea Dyspnea type: unspecified Qualified Code(s): R06.00 - Dyspnea, unspecified
--- NOTE | 2019-03-10 03:58 | Emergency Department Note ---
Entered by Amber Saul acting as a scribe for Shad Gonzalez MD ED Provider Note Name: Veronica Mendoza Age: 74 Arrives Via: Walk-In Informant: Self, [id number] CC: SOB HPI: A female arrives for evaluation after complaining of constant SOB that began after she woke up from a nap a few hours ago. She notes that she has been experiencing unknown leg swelling for the past week, and has had SOB every time she attempts to sleep. She denies any known workup for CHF. The patient compla ins of pain from her "waist to the top of her legs." She denies any weakness, urinary burning, difficulty urinating, and abdominal pain. The patient notes that the SOB worsens when she is lying flat. Her [id number], at bedside, notes that she "hasn't been eating right." She notes that she is taking Tramadol and a water pill daily. ROS: See above HPI for pertinent positives & negatives. A total of 10 systems reviewed and were otherwise negative. Past Medical History: COPD, A. fib Past Surgical History: Lobectomy of the lung Family History: Family history is noncontributory. Social History: Lives alone. Home Medications: See below. Allergies NKA. Physical: Vitals: BP: 153/65, P: 88, T: 97.5, O2 Sat: 99, D: Room Air Exam: GENERAL: Patient is tired appearing and in mild/moderate distress. EYES: No scleral icterus, unremarkable pupils. Pale conjunctiva. ENT: Mucous membranes dry, no nasal congestion. NECK: No masses appreciated, no meningismus, trachea is midline. RESPIRATORY: Diffusely tight lung sounds with expiratory and inspiratory wheezing. CARDIOVASCULAR: Regular rate and rhythm. No murmurs, rubs, gallops appreciated. GASTROINTESTINAL: Abdomen soft, non-tender, no peritonitis. Bowel sounds positive. No masses appreciated. BACK: No midline tenderness, no CVA tenderness EXTREMITIES: Normal motion all extremities, no cyanosis. Bilateral lower leg petechiae. 2+ pitting edema in the bilateral lower legs. NEUROLOGIC: Alert and oriented, no acute motor or sensory deficits, no focal weakness, cranial nerves grossly intact. SKIN: No rash, no jaundice, no diaphoresis. ED Course: Prior Medical Record, Triage/Nursing Notes, Medications, Allergies reviewed by Me Vital Signs: reviewed and remarkable for hypertension. Labs: Reviewed and remarkable for elevated BNP, elevated CRP, low albumin, normal WBC, baseline anemia, baseline bmp Interventions: Saline Lock, Duoneb x 1 hour Imaging: X ray results are stated below per my interpretation: Chest: 1 view: Congestive failure with mild bilateral effusions. [facility] Radiologist interpretation reviewed by me: "CTA CHEST: No evidence for pulmonary embolism. Evidence of interval partial left pneumonectomy when compared to examination 12/14/2018. Hyperexpansion of a right lung persists. Mosaic appearance of the lungs with areas of hyperlucency and scattered ground-glass opacities suggest air-trapping with suspected coexisting pulmonary vascular congestion please correlate clinically. Dependent bilateral pleural effusions are noted posteriorly measuring approximately 1 cm in size. No pneumothorax. No significant acute abnormality involving the thoracic aorta with atherosclerotic calcification noted. Cardiac chambers demonstrate no significant interval change from previous exam. No pericardial effusion. No significant mediastinal adenopathy. Left subclavian portacatheter extends to the superior vena cava. No acute osseous or significant overlying soft tissue abnormality. Radiologist: Luke Patel MD" EKG: Per My Interpretation: Indication: SOB: Sinus 89 bpm with pac, no ischemia. QTC 452. Similar to previous. Consults: Dr Mcfarlane - Will bring in for further work-up Reassessments/Times: 2342: The patient was evaluated in room B11B. A complete history and physical examination was performed. 0046: I reevaluated the patient, and her oxygen level is improving. Blood pressure: Elevated - Referred to Hospitalist Disposition: Hospitalization Differentials: Differential: Infectious, Reactive Airway Disease, Pneumonia, Pneumothorax, COPD, CHF, ACS, Pulmonary Embolism, MSK, GI, Dissection, amongst other etiologies entertained Medical Decision Making: Pleasant 74 yr old female with complex lung history who notes 2 weeks ago worsening leg swelling which she went on lasix, then had fall resulting in L4 fracture, and on top of that noted to have worsening anemia and received blood transfusion last week. She has very tight lung sounds on arrival, dry mucous membranes but mild edema in legs along with non-blanching petechial rash of just the lower legs where socks would be. Given duoneb and breathing improved but now very wet lungs. CXR and BNP consistent with congestive failure of which she denies history. She furthermore has elevated CRP which may be RA related or infectious. No clear evidence of infection otherwise though. Rash on legs consistent with her sock location and her being on blood thinner, though could be vasculitis, or even delayed transfusion reaction. Rash is isolated and not consistent with sepsis/dic. She is unable to sit or even stand with back fracture. She clearly is in need of rehab, but with multiple other issues I do not feel she could be safely placed currently until we figure out better what is going on. Hospitalist down to evaluate and agrees with assessment and will plan on seeing CT findings on chest prior to doing steroids or lasix. Patient sating OK currently thus this seems reasonable. Contrast used given good renal fun ction. Impression: Congestive Heart Failure COPD with Acute Exacerbation Petechial Rash Closed L4 Vertebral Fracture. Shad Gonzalez MD The scribe's documentation has been prepared under my direction and personally reviewed by me in its entirety. I confirm that the note above accurately reflects all work, treatment, procedures, and medical decision making performed by me. Impression & Plan Congestive heart failure, COPD with acute exacerbation, Petechial rash, Closed L4 vertebral fracture Past Med/Surg History Medical History Arthritis (Chronic) Atrial fibrillation with RVR Lung cancer Surgical History S/P lobectomy of lung LLL, in 09/2017 Family History Father Hypertension Social History Preferred Language: Com[place]an Communication Ability: Effective Visual Impairment: No Limitations Hearing Ability: Normal Religious Assistant Required: No Beliefs That Will Affect Care: None Current Living Situation: Alone Other Information That Helps Us Care for You: No Feels Safe at Home: Yes Safety Concerns: Feels Safe At This Time Smoking Status: Current every day smoker Tobacco Type: cigarettes Cigarettes Per Day: 10-20 Do You Dip or Chew Tobacco: No Second Hand Exposure: No Tobacco Cessation Education Requested by Patient: No Hx Alcohol Use: No Hx Substance Use: No Results & Data Vital Signs Vital Signs - 24 hr 03/09/19 23:31 03/09/19 23:43 03/10/19 00:03 Temperature 36.4 C L Temperature Source Oral Sepsis Action Taken by Nursing No Action Required Pulse Rate 88 Pulse Rate [Apical] Pulse Rate [Right Finger] 91 H Respiratory Rate 20 22 Respiratory Effort / Characteristics Non-Labored Spontaneous Spontaneous Respiratory Depth Normal Respiratory Pattern Blood Pressure 153/65 H Blood Pressure [Right Arm] Blood Pressure Mean 94 Blood Pressure Mean [Right Arm] Blood Pressure Position [Right Arm] Pulse Oximetry 99 95 Pulse Oximetry [Exercises] Oxygen Delivery Method Room Air Room Air Room Air 03/10/19 00:05 03/10/19 00:31 03/10/19 01:00 Temperature Temperature Source Sepsis Action Taken by Nursing Pulse Rate 88 93 H 91 H Pulse Rate [Apical] Pulse Rate [Right Finger] Respiratory Rate 24 17 26 H Respiratory Effort / Characteristics Respiratory Depth Respiratory Pattern Blood Pressure 165/90 H 157/58 H 158/57 H Blood Pressure [Right Arm] Blood Pressure Mean 115 91 90 Blood Pressure Mean [Right Arm] Blood Pressure Position [Right Arm] Pulse Oximetry 95 100 100 Pulse Oximetry [Exercises] Oxygen Delivery Method Room Air Nebulizer Nebulizer 03/10/19 01:19 03/10/19 01:30 03/10/19 02:55 Temperature 36.5 C Temperature Source Oral Sepsis Action Taken by Nursing Pulse Rate 99 H Pulse Rate [Apical] 105 H Pulse Rate [Right Finger] Respiratory Rate 18 22 Respiratory Effort / Characteristics Non-Labored Spontaneous Respiratory Depth Normal Respiratory Pattern Regular Blood Pressure 162/75 H Blood Pressure [Right Arm] 161/67 H Blood Pressure Mean 104 Blood Pressure Mean [Right Arm] 98 Blood Pressure Position [Right Arm] Lying Pulse Oximetry 97 94 Pulse Oximetry [Exercises] 93 Oxygen Delivery Method Room Air Room Air Room Air Laboratory Data Result diagrams: 03/10/19 00:03 03/10/19 00:03 Lab Results 03/10/19 03/10/19 03/10/19 Range/Units 00:03 00:03 00:03 WBC 6.22 (4.8-10.8) K/uL RBC 3.31 L (4.2-5.4) M/uL Hgb 8.7 L (12.0-16.0) g/dL Hct 27.8 L (37-47) % MCV 84.0 (80-100) fL MCH 26.3 (25-34) pg MCHC 31.3 L (32-36) g/dL RDW Std Deviation 53.9 H (36.4-46.3) fL RDW Coeff of Jose 17.5 H (11.5-14.5) % Plt Count 167 (130-400) K/uL MPV 9.0 (7.4-10.4) fL Immature Gran % (Auto) 0.2 % Neut % (Auto) 78.6 % Lymph % (Auto) 14.3 % Richardson % (Auto) 6.4 % Eos % (Auto) 0.3 % Baso % (Auto) 0.2 % Immature Gran # (Auto) 0.01 (0.00-0.02) K/uL Neut # (Auto) 4.89 (1.4-6.5) K/uL Lymph # (Auto) 0.89 L (1.2-3.4) K/uL Richardson # (Auto) 0.40 (0.11-0.59) K/uL Eos # (Auto) 0.02 (0-0.5) K/uL Baso # (Auto) 0.01 (0-0.2) K/uL RBC Morphology Unremarkable PT Cancelled INR Cancelled APTT Cancelled PTT Ratio Cancelled VBG pH (7.36-7.41) VBG pCO2 (38-50) mmHg VBG pO2 mmHg VBG HCO3 mmol/L VBG O2 Saturation % VBG Base Excess mEq/L Barometric Pressure mm/Hg Sodium (136-145) mmol/L Potassium (3.5-5.1) mmol/L Chloride (98-107) mmol/L Carbon Dioxide (21-32) mmol/L Anion Gap (3-11) BUN (7-18) mg/dl Creatinine (0.6-1.2) mg/dl Est Cr Clr Drug Dosing ml/min Est GFR ( Amer) Est GFR (Non-Af Amer) BUN/Creatinine Ratio (10-20) Glucose (70-99) mg/dl Calcium (8.5-10.1) mg/dl Magnesium (1.8-2.4) mg/dl Total Bilirubin (0.2-1) mg/dl Direct Bilirubin (0-0.2) mg/dl AST (15-37) U/L ALT (12-78) U/L Alkaline Phosphatase (45-117) U/L Total Creatine Kinase (26-192) U/L Troponin I (0-0.045) ng/ml C-Reactive Protein (0-0.29) mg/dl NT-Pro-B Natriuret Pep (0-900) pg/ml Total Protein (6.4-8.2) gm/dl Albumin (3.4-5.0) gm/dl Blood Type A Positive Antibody Screen NEGATIVE 03/10/19 03/10/19 03/10/19 Range/Units 00:03 00:03 01:48 WBC (4.8-10.8) K/uL RBC (4.2-5.4) M/uL Hgb (12.0-16.0) g/dL Hct (37-47) % MCV (80-100) fL MCH (25-34) pg MCHC (32-36) g/dL RDW Std Deviation (36.4-46.3) fL RDW Coeff of Jose (11.5-14.5) % Plt Count (130-400) K/uL MPV (7.4-10.4) fL Immature Gran % (Auto) % Neut % (Auto) % Lymph % (Auto) % Richardson % (Auto) % Eos % (Auto) % Baso % (Auto) % Immature Gran # (Auto) (0.00-0.02) K/uL Neut # (Auto) (1.4-6.5) K/uL Lymph # (Auto) (1.2-3.4) K/uL Richardson # (Auto) (0.11-0.59) K/uL Eos # (Auto) (0-0.5) K/uL Baso # (Auto) (0-0.2) K/uL RBC Morphology PT 16.9 H INR 1.7 H APTT 45.3 H* PTT Ratio 1.7 VBG pH 7.45 H (7.36-7.41) VBG pCO2 39 (38-50) mmHg VBG pO2 33 mmHg VBG HCO3 26 mmol/L VBG O2 Saturation 63.0 % VBG Base Excess 2.1 mEq/L Barometric Pressure 730.2 mm/Hg Sodium 137 (136-145) mmol/L Potassium 3.1 L (3.5-5.1) mmol/L Chloride 105 (98-107) mmol/L Carbon Dioxide 26 (21-32) mmol/L Anion Gap 6.0 (3-11) BUN 19 H (7-18) mg/dl Creatinine 0.73 (0.6-1.2) mg/dl Est Cr Clr Drug Dosing 46.1 ml/min Est GFR ( Amer) 94.0 Est GFR (Non-Af Amer) 81.1 BUN/Creatinine Ratio 25.4 H (10-20) Glucose 109 H (70-99) mg/dl Calcium 8.0 L (8.5-10.1) mg/dl Magnesium 1.8 (1.8-2.4) mg/dl Total Bilirubin 0.3 (0.2-1) mg/dl Direct Bilirubin 0.1 (0-0.2) mg/dl AST 11 L (15-37) U/L ALT 12 (12-78) U/L Alkaline Phosphatase 76 (45-117) U/L Total Creatine Kinase 12 L (26-192) U/L Troponin I < 0.015 (0-0.045) ng/ml C-Reactive Protein 12.40 H (0-0.29) mg/dl NT-Pro-B Natriuret Pep 4627 H (0-900) pg/ml Total Protein 6.9 (6.4-8.2) gm/dl Albumin 1.9 L (3.4-5.0) gm/dl Blood Type Antibody Screen Administered Medications Ioversol (Optiray 320 125ml) 125 ml IV ONCE PRN PRN Reason: Interaction Checking Stop: 03/14/19 02:58 Last Admin: 03/10/19 02:59 Dose: 82 ml Documented by: [id number] Discontinued Medications Albuterol (Duoneb) 12 ml NEB ONE ONE Stop: 03/09/19 23:50 Last Admin: 03/10/19 00:01 Dose: 12 ml Documented by: [id number] Discharge Plan Visit Data *Final* Discharge Date/Time: 03/10/19 02:00 Chief Complaint: Shortness of Breath/Dyspnea Stated Complaint: SOB, RECENT FALL, PETECHIAE ON LEG ED Provider: Shad Gonzalez Discharge Problem: Congestive heart failure, COPD with acute exacerbation, Petechial rash, Closed L4 vertebral fracture Patient Disposition: Admitted As Inpatient Discharge Instructions Interventions: ED Discharge Assessment Last Done: 03/10/19 02:00 The scribe's documentation has been prepared under my direction and personally reviewed by me in its entirety. I confirm that the note above accurately reflects all work, treatment, procedures, and medical decision making performed by me.
[2019-03-10] MEDS: ACETAMINOPHEN 325 MG TAB PO PRN ×2 (04:39→17:17)
--- NOTE | 2019-03-10 07:06 | XRay Report ---
XR chest 1V portable CLINICAL HISTORY: 74 years-old Female presenting with Shortness of breath. TECHNIQUE: Portable upright AP view of the chest was obtained. COMPARISON: 12/30/2018. FINDINGS: Left subclavian Mediport terminates in the lower SVC. Atherosclerosis of the aorta. Cardiac silhouett e top normal in size. Leftward mediastinal shift relates to postsurgical changes of the left lung wit h a suture margin evident at the left apex. 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 Architectural distortion at the left lung base with mild pulmonar y vessel prominence. No focal superimposed opacity. No large effusion or pneumothorax. Degenerative c hanges of the thoracic spine. IMPRESSION: 1. Mild volume overload. No kasi pulmonary edema. 2. Underlying chronic lung disease suspected. 3. Postsurgical changes of the left lung. Electronically signed by: Yuri Delong M.D. 03/10/2019 7:05 AM
[2019-03-10] MEDS: ALBUT/IPRATROP 3MG/0.5MG NEB 3 ML VIAL NEB SCH ×4 (07:21→19:02)
--- NOTE | 2019-03-10 07:27 | CT Scan Report ---
CT angio chest PE protocol CLINICAL HISTORY: 74 years-old Female presenting with atypical chest pain, shortness of breath. TECHNIQUE: Multidetector CT angiography of the chest was performed after administration of intravenou s contrast. 3-D volumetric and/or maximum intensity projection (MIP) images were subsequently reconst ructed for review. IV contrast: 82 mL of Optiray 320. One or more dose lowering techniques were used consistent with the principles of ALARA (as low as reasonably achievable), including automatic exposu re control, mA or kV adjustment to individual patient size, and/or use of iterative reconstruction. COMPARISON: 12/14/2018. CT DOSE (mGy.cm): The estimated cumulative dose is 244.62 mGy.cm. 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 Pulmonary vasculature: The study is adequate for assessment of the pulmonary vascular tree. No filling defect within the pul monary arteries to suggest embolus. Main pulmonary artery is not enlarged. No flattening of the inter ventricular septum. No intracardiac filling defect. No reflux of contrast into the hepatic veins. Remaining chest: Soft tissues: Normal thyroid. Left subclavian Mediport terminates in the mid SVC. No axillary, suprac lavicular, mediastinal, or hilar lymphadenopathy. Atherosclerosis of the aorta. Top normal heart size . Coronary artery calcification. Small bilateral pleural effusions, which are simple appearing. No pe ricardial effusion. Trace hilar hernia and mild distention of the lower esophagus. Lungs and airways: No pneumothorax. Significant debris in the lower trachea just proximal to the orig in of the right mainstem bronchus. Extensive bronchial wall thickening with a lower lung predominance . Pulmonary arteries are not significantly enlarged relative to adjacent bronchi. Mild interlobular s eptal thickening with a lower lung predominance. Moderate centrilobular emphysema, which is diffuse. Postsurgical changes of left lower lobectomy. Resulting architectural distortion of the residual left upper lobe and compensatory hyperinflation of the right lung. The previously noted extensive mucous plugging and near complete collapse of the left upper lobe has entirely resolved. 4 mm nodule at the right apex (series 4 image 336), new from prior. Additional patchy nodular opacities with an upper lo be predominance are new from prior. The right middle lobe is affected to a lesser degree. Dependent c onsolidation, right greater than left, characteristic of passive atelectasis. Musculoskeletal: Degenerative changes of the spine. IMPRESSION: 1. Minimal patchy nodular infiltrates at the apices from prior likely on an infectious or inflammato ry basis. 2. Background moderate emphysema and bronchitis. 3. Resolution of prior collapse of the left upper lobe. 4. Postsurgical changes of left lower lobectomy. 5. Significant debris in the lower trachea near the origin of the right mainstem bronchus. Correlate for a history of aspiration. 6. Small bilateral pleural effusions. Electronically signed by: Yuri Delong M.D. 03/10/2019 7:26 AM
[2019-03-10] MEDS ORDERED: POTASSIUM CHLORIDE 20 MEQ TABCR PO STA (09:59)
[2019-03-10] MEDS ORDERED: DOXYCYCLINE HYCLATE 100 MG in DEXTROSE 5% 100 ML IV SCH (10:00)
[2019-03-10] MEDS: ALPRAZolam 0.5 MG TABLET PO SCH (10:09)
[2019-03-10] MEDS: TRAMADOL HCL 50 MG TABLET PO SCH (10:09)
[2019-03-10] MEDS: dilTIAZem HCL 240 MG CAPCR PO SCH (10:09)
[2019-03-10] MEDS: POTASSIUM CHLORIDE / WTR 10 MEQ/100 ML PLCT IV SCH ×2 (10:33→11:57)
--- NOTE | 2019-03-10 11:54 | Cardiology Consultation ---
Date of Consultation March 10, 2019 Assessment & Plan (1) Dyspnea: She has not report a lot of breathing difficulty currently. She may have had an element of pulmonary vascular congestion at the time of admission. She seems to have diuresed quite effectively over the past few hours and this may have resulted in her improved symptoms. She does appear to have an element of mitral regurgitation associated with a valvular vegetation. This could have precipitated some of her symptoms of pulmonary vascular congestion and dyspnea. She also may have a primary pulmonary process which contributes such as mucus plugging or perhaps aspiration. Present on Admission?: Yes (2) Valvular vegetation: Echocardiogram today suggested a vegetation on the mitral valve. She does not have evidence of an acute infection but does have some petechial rash and lumbar pain as well as elevated inflammatory markers which could be related to subacute bacterial endocarditis. She has had several exposures which could have resulted in bacteremia including her left hand wound and frequent intravenous treatments and blood draws. There is the possibility this is a non infectious lesion as well, although this is not likely a thrombus. I would of her blood cultures. We will perform ISSA tomorrow to better characterize the valve function in to evaluate the aortic valve which also appears somewhat thickened on transthoracic echocardiogram. (3) Atrial fibrillation: She has not had evidence of recurrent atrial arrhythmias since her discharge after surgery. She was seen on an outpatient basis and again had no definite recurrence of atrial fibrillation. Still at risk of recurrent arrhythmias given her comorbidities. Will keep her on telemetry this time. (4) Syncope: She appears to have had some episodes of syncope on an outpatient basis. The did not appear to be overt falls with retrograde amnesia. Outpatient monitoring did not reveal any notable ideology. I do not believe that her echocardiogram findings support a diagnosis either. There is still a possibility that she suffers from an occult arrhythmia. She could be having some episodes of atrial fibrillation and associated conversion pauses. Will keep her on telemetry monitoring currently. Perhaps implantation of loop recorder would be of value prior to discharge. History of Present Illness Reason for Consultation: Congestive heart failure Requesting Physician: Zoran Attending Physician: Kyara Meehan MD History of Present Illness The patient is a 74-year-old woman with a history of lung cancer and partial lung resection. The postoperative. She did have atrial flutter and was initially evaluated by our cardiology service for that diagnosis. Recently she has been struggling with a variety of new symptoms. Patient appears to have an element of gait instability and possible syncope. She has also developed some symptoms dyspnea and lower extremity edema. These appear to have GERD over the past several weeks. She states that recently her breathing has been worse and she was noted by friends to be wheezing. Based on her lower extremity edema, the development of lower extremity rash and wheezing she presented to [facility] for evaluation. Imaging studies in examination suggests she had an element of pulmonary vascular congestion and she did undergo an echocardiogram today for concerns regarding congestive heart failure. Patient states that this morning her breathing is improved. She did report some element of orthopnea recently, perhaps within the last 24 hours. However, generally she sleeps fairly well. She has not report limiting dyspnea or exertional dyspnea. She has not had symptoms of chest discomfort. She denied fevers or chills. She has not report dizziness or lightheadedness but did report several episodes of which she believes is syncope. These episodes seem to occur when she is walking. She will generally finds herself on the ground suddenly. She cannot recall any prodrome leading up to these events. She did not report any symptoms of palpitation. Allergies Allergy/AdvReac Type Severity Reaction Status Date / Time No Known Allergies Allergy Verified 03/04/19 08:56 Home Medications Home Medications Medication Instructions Recorded Confirmed Type Xarelto 20 mg PO DAILY 12/14/18 03/10/19 History alprazolam 0.5 mg PO DAILY 12/14/18 03/10/19 History ascorbic acid (vitamin C) [Vitamin 500 mg PO DAILY 12/14/18 03/10/19 History C] benzonatate 100 mg PO TID PRN 12/14/18 03/10/19 History cholecalciferol (vitamin D3) 5,000 unit PO DAILY 12/14/18 03/10/19 History [Vitamin D3] diltiazem HCl 240 mg PO DAILY 12/14/18 03/10/19 History docusate sodium [Colace] 100 mg PO BID PRN 12/14/18 03/10/19 History echinacea 500 mg PO DAILY PRN 12/14/18 03/10/19 History Fluid Pill 1 dose PO DIRECTED 03/10/19 03/10/19 History acetaminophen 500 - 1,000 mg PO Q6H PRN 03/10/19 03/10/19 History tramadol 50 mg PO DAILY 03/10/19 03/10/19 History Patient History Medical History Arthritis (Chronic) Atrial fibrillation with RVR Lung cancer Surgical History S/P lobectomy of lung LLL, in 09/2017 Family History Father Hypertension Social History Preferred Language: Bolivian Communication Ability: Effective Visual Impairment: No Limitations Hearing Ability: Normal 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 She has not report significant joint pain. She does have some symptoms of back discomfort for which she consulted her orthopedic surgeon. She is felt to have a very minor fracture of 1 vertebrae. Currently not complaining of back pain. She did not report symptoms associated with a gait disturbance. Physical Exam Physical Exam: She is alert and oriented x3. Mood affect appear normal. She answered all questions appropriately. HEENT: Sclerae are anicteric. Pupils are equal and reactive to light and accommodation. Extraocular movements were intact. Neuro: Cranial nerves intact Neck: Examination of the submandibular region did not reveal any significant lymphadenopathy. Carotids are palpable bilaterally and free of bruits on auscultation. There was no evidence of jugular venous distention. The thyroid was not enlarged. Lungs: Reduced breath sounds bilaterally. No rales. No expiratory wheezing. Normal respiratory effort. Cardiac: The rhythm was regular. S1 and S2 were normal. Holosystolic murmur variable intensity. The PMI was not markedly displaced on palpation. Abdomen: The abdomen was soft and nontender. Extremities: Patient has bilateral radial pulses that are equal in intensity. There is no evidence cyanosis or clubbing. There was no evidence of significant peripheral edema bilaterally. Skin: Petechial rash on the shins bilaterally. Results & Data Vital Signs (Past 12 Hours) Vital Signs Temp Pulse Pulse Pulse Resp BP BP 03/10/19 11:08 36.3 C L 94 H 18 156/74 H 03/10/19 09:10 36.8 C 99 H 16 03/10/19 07:25 98 H 16 03/10/19 02:55 36.5 C 105 H 22 03/10/19 01:30 99 H 18 162/75 H 03/10/19 01:19 03/10/19 01:00 91 H 26 H 158/57 H 03/10/19 00:31 93 H 17 157/58 H 03/10/19 00:05 88 24 165/90 H 03/10/19 00:03 91 H 22 BP Pulse Ox Pulse Ox 03/10/19 11:08 95 03/10/19 09:10 150/71 H 95 03/10/19 07:25 96 03/10/19 02:55 161/67 H 94 03/10/19 01:30 97 03/10/19 01:19 93 03/10/19 01:00 100 03/10/19 00:31 100 03/10/19 00:05 95 03/10/19 00:03 95 Laboratory Results Abnormal Lab Results 03/10/19 03/10/19 03/10/19 00:03 00:03 00:03 WBC 6.22 RBC 3.31 L Hgb 8.7 L Hct 27.8 L MCV 84.0 MCH 26.3 MCHC 31.3 L RDW Std Deviation 53.9 H RDW Coeff of Jose 17.5 H Plt Count 167 MPV 9.0 Immature Gran % (Auto) 0.2 Neut % (Auto) 78.6 Lymph % (Auto) 14.3 Gilliam % (Auto) 6.4 Eos % (Auto) 0.3 Baso % (Auto) 0.2 Immature Gran # (Auto) 0.01 Neut # (Auto) 4.89 Lymph # (Auto) 0.89 L Gilliam # (Auto) 0.40 Eos # (Auto) 0.02 Baso # (Auto) 0.01 RBC Morphology Unremarkable PT Cancelled INR Cancelled APTT Cancelled PTT Ratio Cancelled VBG pH VBG pCO2 VBG pO2 VBG HCO3 VBG O2 Saturation VBG Base Excess Barometric Pressure Sodium Potassium Chloride Carbon Dioxide Anion Gap BUN Creatinine Est Cr Clr Drug Dosing Est GFR ( Amer) Est GFR (Non-Af Amer) BUN/Creatinine Ratio Glucose Calcium Magnesium Total Bilirubin Direct Bilirubin AST ALT Alkaline Phosphatase Total Creatine Kinase Troponin I C-Reactive Protein NT-Pro-B Natriuret Pep Total Protein Albumin Blood Type A Positive Antibody Screen NEGATIVE 03/10/19 03/10/19 03/10/19 00:03 00:03 01:48 WBC RBC Hgb Hct MCV MCH MCHC RDW Std Deviation RDW Coeff of Jose Plt Count MPV Immature Gran % (Auto) Neut % (Auto) Lymph % (Auto) Gilliam % (Auto) Eos % (Auto) Baso % (Auto) Immature Gran # (Auto) Neut # (Auto) Lymph # (Auto) Gilliam # (Auto) Eos # (Auto) Baso # (Auto) RBC Morphology PT 16.9 H INR 1.7 H APTT 45.3 H* PTT Ratio 1.7 VBG pH 7.45 H VBG pCO2 39 VBG pO2 33 VBG HCO3 26 VBG O2 Saturation 63.0 VBG Base Excess 2.1 Barometric Pressure 730.2 Sodium 137 Potassium 3.1 L Chloride 105 Carbon Dioxide 26 Anion Gap 6.0 BUN 19 H Creatinine 0.73 Est Cr Clr Drug Dosing 46.1 Est GFR ( Amer) 94.0 Est GFR (Non-Af Amer) 81.1 BUN/Creatinine Ratio 25.4 H Glucose 109 H Calcium 8.0 L Magnesium 1.8 Total Bilirubin 0.3 Direct Bilirubin 0.1 AST 11 L ALT 12 Alkaline Phosphatase 76 Total Creatine Kinase 12 L Troponin I < 0.015 C-Reactive Protein 12.40 H NT-Pro-B Natriuret Pep 4627 H Total Protein 6.9 Albumin 1.9 L Blood Type Antibody Screen 03/10/19 06:32 WBC RBC Hgb 9.1 L Hct MCV MCH MCHC RDW Std Deviation RDW Coeff of Jose Plt Count MPV Immature Gran % (Auto) Neut % (Auto) Lymph % (Auto) Gilliam % (Auto) Eos % (Auto) Baso % (Auto) Immature Gran # (Auto) Neut # (Auto) Lymph # (Auto) Gilliam # (Auto) Eos # (Auto) Baso # (Auto) RBC Morphology PT INR APTT PTT Ratio VBG pH VBG pCO2 VBG pO2 VBG HCO3 VBG O2 Saturation VBG Base Excess Barometric Pressure Sodium Potassium Chloride Carbon Dioxide Anion Gap BUN Creatinine Est Cr Clr Drug Dosing Est GFR ( Amer) Est GFR (Non-Af Amer) BUN/Creatinine Ratio Glucose Calcium Magnesium Total Bilirubin Direct Bilirubin AST ALT Alkaline Phosphatase Total Creatine Kinase Troponin I C-Reactive Protein NT-Pro-B Natriuret Pep Total Protein Albumin Blood Type Antibody Screen Diagnostic Findings CT PE protocol did not reveal any evidence of pulmonary embolus. There was some concern regarding aspiration. Chest x-ray which demonstrated some evidence of pulmonary vascular congestion and cardiomegaly Echocardiogram performed today revealed preserved LV systolic function with evidence a vegetation on the mitral valve and associated mitral regurgitation. ECG Additional Comments: Sinus rhythm (1) Dyspnea Dyspnea type: unspecified Qualified Code(s): R06.00 - Dyspnea, unspecified (2) Atrial fibrillation Atrial fibrillation type: unspecified Qualified Code(s): I48.91 - Unspecified atrial fibrillation
--- NOTE | 2019-03-10 12:04 | History & Physical Bridge Note ---
Date of Service March 10, 2019 History & Physical Bridge Note I have examined the patient, reviewed the History & Physical and in the interval since the performance of the History & Physical I have noted the following changes of clinical significance: DIscussed case with Pulm and Cardiology. ECHO shows a vegetation on the mitral valve and possibly on the AV. Pt denies any fevers/sweats/chills in the last few weeks. She has been having significant lower back pain at times radiating down both legs. Saw Dr. [facility] ago and was ordered a CT Lumbar spine which hasn't been done yet. Otherwise denies SOB or Chest pain currently Diuresed over 1 L overnight. Vitals reviewed, Tele with NSR, rates 90s PEERL,EOMI,anicteric sclerae RRR no mgr Lungs clear but diminished throughout Abd +BS soft NT ND Ext no edema, +ulnar deviation of fingers, no nodules, +clubbing, +TTP over lumbar spine, strength full in LEs bilaterally, sensation intact to lt touch SKin with petechiae diffusely on legs and one on left middle finger at nail bed, no nodules 74 yo female here with history of PAF, RA, COPD, current smoker, anemia, lung CA, here with recent falls with syncope, increased HARVEY, suspected CHF ECHO with preserved LVEF, but with large MV vegetation, possible AV vegetation Possible SBE. -Plan for ISSA tomorrow -check BCxs now -petechiae could be secondary to SBE as well -d/w Pulm about lungs--> has COPD but no acute exacerbation and mucus plugging not concerning, afebrile--> no need for further steroids or doxycycline as ordered earlier today-no doses of abx were given -has trouble with HFAs--> convert to nebulizers upon discharge -consider ID consult if has IE
--- NOTE | 2019-03-10 13:48 | Magnetic Resonance Report ---
MR lumbar spine wo con CLINICAL HISTORY: 74 years-old Female with low back pain,fall,suspect endocarditis,r/o discit. Acute low back pain with endocarditis. COMPARISON: CTA of the chest 03/10/2019. TECHNIQUE: Multiplanar, multi sequence MRI of the lumbar spine was performed without intravenous cont rast. FINDINGS: 1.3 cm perineural root sleeve cyst noted on the left posterior to the S3 vertebral body. Just superio r to this is a 6 mm perineural root sleeve cyst. There is a 1.7 cm synovial cyst posterior to the rig ht L5-S1 facet articulation. Moderate to extensive bone marrow edema at the T11-T12 and L3-L4 levels with fluid seen within the disc spaces at these levels. Mild to moderate surrounding paravertebral ed kari is also noted at these interspaces. T11-T12 is not imaged on the axial sequences. At L3-L4 there is a 11 x 8 mm fluid collection about the left psoas musculature on image 17 series 7 suggestive of a small abscess. Moderate edema of the left psoas musculature is suggestive of myositis. There is sugg estion of mild early endplate erosive changes at L3-L4 without significant erosion identified at T11- T12. No definite epidural abscess identified. No acute fracture or subluxation identified. Conus medullaris terminates at the L1 level. Signal within the thoracic spinal cord appears normal. T he study is mildly motion degraded. T12-L1: Moderate disc space narrowing with spondylitic spurring, circumferential annular disc bulge and posterior annular fissure with moderate facet arthrosis. Additionally, there is a right paracentr al disc protrusion. Mild central canal stenosis without significant foraminal narrowing. L1-L2: Moderate disc space narrowing and spondylitic spurring, circumferential annular disc bulge an d moderate facet arthrosis. Flattening of the ventral thecal sac without significant central canal st enosis. There is mild bilateral foraminal narrowing. L2-L3: Moderate disc space narrowing with spondylitic spurring, circumferential annular disc bulge a nd moderate facet arthrosis. Flattening of the ventral thecal sac without significant central canal n arrowing. Right foramen is patent. Mild left foraminal narrowing. L3-L4: Findings suggestive of discitis osteomyelitis as above. No epidural fluid collection. 4 mm re trolisthesis L3 on L4 is likely on a degenerative basis. Severe facet arthrosis with ligamentum flavu m thickening, posterior spondylitic spurring with circumferential annular disc bulge. Moderate centra l canal stenosis with severe left and mild to moderate right foraminal narrowing. L4-L5: Mild to moderate disc space narrowing with circumferential annular disc bulge, posterior spon dylitic spurring, severe facet arthrosis with ligamentum flavum thickening. There is moderate central canal stenosis with mild to moderate bilateral foraminal narrowing. L5-S1: Small posterior annular disc bulge with spondylitic spurring, severe facet arthrosis with rig ht facet effusion. Central canal is patent. Moderate right and mild to moderate left foraminal narrow ing. IMPRESSION: 1. Findings suggestive of acute discitis osteomyelitis at the T11-T12 and L3-L4 levels. Mild associat ed endplate erosion/destruction at L3-L4. No epidural fluid collections or significant endplate colla pse. 2. Moderate myositis about the left psoas musculature with associated 11 mm abscess at the L3-L4 leve l. 3. Multilevel disc space narrowing with spondylitic spurring and facet arthropathy as detailed above. The above report was generated using voice recognition software. It may contain grammatical, syntax o r spelling errors. Dictated: 03/10/2019 1:25 PM Transcribed: 03/10/2019 1:47 PM Allyson [id number] [email or web address] Electronically signed by: Junior Rocha M.D. 03/10/2019 2:00 PM
[2019-03-10] MEDS ORDERED: methylPREDNISolone 60 MG in SYRINGE 0 ML IV SCH (14:00)
--- NOTE | 2019-03-10 15:39 | Pulmonary Consultation ---
Date of Consultation March 10, 2019 Assessment & Plan (1) Syncope: Impression: 1. COPD, not in exacerbation. 2. Syncope, with the presence of vegetation on the mitral and aortic valve. 3. History of non-small cell lung CA status post right lower lobe lobectomy. 4. Cholesterol pulmonary nodules in the left upper lobe, not amenable to bronchoscopy. 5. Mucoid impaction, and the distal trachea, does not compromise segmental airway. 6. Possible dementia. Plan: 1. Continue current bronchodilators. 2. Given the fact the patient is having difficulty adapting to MDI, will be advisable to change the patient to Pulmicort and Brovana and a nebulized form. However teaching also needs to be provided. 3. Discontinue Solu-Medrol. 4. Evaluation for valvular vegetation as you are doing. Thank you for your kind referral, will follow as needed. History of Present Illness Reason for Consultation: Chronic respiratory failure Requesting Physician: Dr. Meehan Attending Physician: Kyara Meehan MD History of Present Illness Dear Dr. Escudero: Thank you for the kind referral of Mrs. Mendoza to pulmonary service. This is 74-year-old female with a history of recurrent episodes of syncope that has been ongoing since November. The patient has history of COPD, non-small cell lung CA status post right lower lobe lobectomy done by Dr. Gabe Wallace in 2016, presented to the hospital with another episode also of syncope as well. The patient underwent a work-up which revealed by the CAT scan secretions noted in the distal trachea. The patient had COPD changes and volume loss on the right. The patient underwent echocardiogram as well which revealed vegetation of the mitral valve as well as the aortic valve. The patient denies any loss of consciousness at the moment. She denies any shortness of breath, no cough no sputum production, she uses MDI at home but she is confused about how to use them. She did not have any recent abdominal pain, diarrhea, nausea or vomiting, no increased swelling in her lower extremities but noted that the right leg is ch ronically more swollen than the left according to the niece who was at the bedside. No fever no constitutional symptoms, no nocturnal symptoms, she does not use oxygen at home, she has not been followed by pulmonary. Allergies Allergy/AdvReac Type Severity Reaction Status Date / Time No Known Allergies Allergy Verified 03/04/19 08:56 Home Medications Home Medications Medication Instructions Recorded Confirmed Type Xarelto 20 mg PO DAILY 12/14/18 03/10/19 History alprazolam 0.5 mg PO DAILY 12/14/18 03/10/19 History ascorbic acid (vitamin C) [Vitamin 500 mg PO DAILY 12/14/18 03/10/19 History C] benzonatate 100 mg PO TID PRN 12/14/18 03/10/19 History cholecalciferol (vitamin D3) 5,000 unit PO DAILY 12/14/18 03/10/19 History [Vitamin D3] diltiazem HCl 240 mg PO DAILY 12/14/18 03/10/19 History docusate sodium [Colace] 100 mg PO BID PRN 12/14/18 03/10/19 History echinacea 500 mg PO DAILY PRN 12/14/18 03/10/19 History Fluid Pill 1 dose PO DIRECTED 03/10/19 03/10/19 History acetaminophen 500 - 1,000 mg PO Q6H PRN 03/10/19 03/10/19 History tramadol 50 mg PO DAILY 03/10/19 03/10/19 History Patient History Medical History Arthritis (Chronic) Atrial fibrillation with RVR Lung cancer Surgical History S/P lobectomy of lung LLL, in 09/2017 Family History Father Hypertension Social History Preferred Language: [place] Communication Ability: Effective Visual Impairment: No Limitations Hearing Ability: Normal Silviculture Teacher Required: No Beliefs That Will Affect Care: None Current Living Situation: Alone Other Information That Helps Us Care for You: No Feels Safe at Home: Yes Safety Concerns: Feels Safe At This Time Smoking Status: Current every day smoker Tobacco Type: cigarettes Cigarettes Per Day: 10-20 Do You Dip or Chew Tobacco: No Second Hand Exposure: No Tobacco Cessation Education Requested by Patient: No Hx Alcohol Use: No Hx Substance Use: No Review of Systems Review of Systems: Review of systems apart from the above was unremarkable. Physical Exam Physical Exam: Vital signs are stable, S1-S2 regular rate and rhythm, lungs were distant but clear, abdomen is benign, trace edema in the right leg, neurologically she is intact, no oral mucosa lesion, otherwise her exam was unremarkable. Results & Data Vital Signs (Past 12 Hours) Vital Signs Temp Pulse Pulse Pulse Resp BP BP 03/10/19 15:15 36.9 C 92 H 16 151/77 H 03/10/19 11:08 36.3 C L 94 H 18 156/74 H 03/10/19 09:10 36.8 C 99 H 16 150/71 H 03/10/19 07:35 96 H 03/10/19 07:25 98 H 16 Pulse Ox 03/10/19 15:15 95 03/10/19 11:08 95 03/10/19 09:10 95 03/10/19 07:35 03/10/19 07:25 96 Laboratory Results Labs were reviewed which showed normal CBC except for mild anemia, BMP also noted to be acceptable, and VBG is unremarkable. Her proBNP was elevated. Diagnostic Findings CAT scan of the chest which I reviewed personally showed volume loss of the right lower lobe, there is COPD changes noted bilaterally, small amount of secretions at the distal trachea, small bilateral pleural effusion. Nodularity noted also at the left apex.
[2019-03-10] MEDS: RIVAROXABAN 15 MG TAB PO SCH (17:17)
[2019-03-11 00:39] LABS: Appearance Urine Cloudy (Clear); Bacteria Urine Automated 2+ (Negative); Bilirubin Urine Negative (Negative); Blood Urine 3+ (Negative); Color Urine Yellow; Epithelial Cell Urine Auto 20-30 /lpf (0-5); Glucose Urine UA Negative (Negative); Ketones Urine Negative (Negative); Leukocyte Esterase Urine Negative (Negative); Nitrite Urine Negative (Negative); Protein Urine 2+ (Negative); RBC Urine Automated >30 /hpf (0-4); Specific Gravity Urine 1.028 (1.000-1.030); Urobilinogen Urine Negative (Negative); pH Urine 6.5 (4.5-7.5)
[2019-03-11] MEDS ORDERED: VANCOMYCIN CONSULT ACTIVE PRN ×2 (04:26→06:50)
[2019-03-11] MEDS ORDERED: VANCOMYCIN HCL 1,250 MG in SODIUM CHLORIDE 0.9% 250 ML IV STA (04:40)
[2019-03-11 06:18] LABS: Creatinine Clr Calc Pharmacy 44.3 ml/min; Est GFR (African American) 89.6; Est GFR (Non-African American) 77.3
[2019-03-11] MEDS ORDERED: VANCOMYCIN HCL 1,000 MG in SODIUM CHLORIDE 0.9% 250 ML IV SCH (07:00)
[2019-03-11] MEDS: ALBUT/IPRATROP 3MG/0.5MG NEB 3 ML VIAL NEB SCH ×4 (07:07→19:16)
[2019-03-11] MEDS: dilTIAZem HCL 240 MG CAPCR PO SCH (07:52)
[2019-03-11] MEDS: TRAMADOL HCL 50 MG TABLET PO SCH (07:52)
[2019-03-11] MEDS: ALPRAZolam 0.5 MG TABLET PO SCH (08:31)
[2019-03-11] MEDS: MIDAZOLAM HCL 1 MG/ML 2ML VIAL ONE ×2 (09:01→10:26)
[2019-03-11] MEDS: fentaNYL citrate 100 MCG/2 ML VIAL ONE ×2 (09:01→10:26)
--- NOTE | 2019-03-11 09:07 | Pharmacy Report ---
Pharmacy Abx Initial Consult - Date of Service March 11, 2019 - Pharmacy Dosing Scope Date of Consult: 03/11/19 Consultation requested by: Dr. Bryan Pharmacy is consulted to initiate Vancomycin IV dosing therapy, order appropriate labs and adjust drug dose/frequency. - Subjective The patient is a 74 year old F admitted on 03/10/19 01:44. - Objective Height: 4 ft 11 in Weight: 48.8 kg Vital Signs (Past 12hrs): Vital Signs Temp Pulse Pulse Resp BP BP Pulse Ox 03/11/19 07:50 36.5 C 81 20 L 154/65 H 94 03/11/19 07:07 85 18 94 03/11/19 04:30 36.6 C 86 18 135/78 93 03/11/19 00:11 36.6 C 92 H 18 139/70 94 Lab Results (24hrs): Laboratory Tests (24 Hours) 03/11/19 05:24 Creatinine 0.76 Est Cr Clr Drug Dosing 44.3 Micro Results: 03/11/19 07:36 Blood Culture - Pending Blood 03/11/19 06:53 Blood Culture - Pending Blood 03/11/19 00:21 Urine Culture - Pending Urine,Random - Assessment & Plan Assessment 74 year old F receiving empiric vancomycin for bacteremia/suspected infective endocarditis based on 2 positive blood cultures (gram positive cocci - chains) and echocardiogram revealing moderate vegetation on mitral valve. Patient will require prolonged duration of antibiotic therapy. Will follow cultures and narrow therapy as able. Plan Microbiology: * blood cultures x 2 (03/10): prelim reveals gram positive cocci in chains (x2) * Urine (03/11): pending * blood cultures x 2 (03/11): pending Vancomycin IV * Estimated PK Parameters: Vd 0.7 L/kg, Jayson 0.041 hr-1, t1/2 17 hr, CrCl: 44.3 mL/min (stable from yesterday) * Loading dose: 1250 mg (25 mg/kg) * Maintenance dose: 750 mg IV (15 mg/kg) every 16 hours * Goal trough level for infective endocarditis/bacteremia : 15 to 20 mcg/mL * Trough level ordered for tomorrow (03/12) at 1130 prior to the third dose * Trough level ordered earlier than typical in order to assess clearance in this patient weighing < 50 kg Pharmacy will continue to follow and will adjust dose/frequency as necessary. Thank you.
--- NOTE | 2019-03-11 09:30 | Post Operative Brief Note ---
Cardiology Brief Post Op Date of Surgery March 11, 2019 Pre & Post Diagnosis Operation Date: 03/11/19 08:30 <No data on this case meets the specified criteria> Procedure ISSA Vegetation on mitral and aortic valve MildAI and mild-moderate MR No complications Versed 3, fentanyl 50 Landscape Architect And Planner Kyle Hirsch MD Cementer none Estimated Blood Loss 0 Findings Consistent with Post-Op Diagnosis
[2019-03-11 09:43] LABS: BUN Creatinine Ratio 29.4 (10-20); Calcium 8.2 mg/dl (8.5-10.1); Creatinine Clr Calc Pharmacy 41.6 ml/min; Est GFR (African American) 82.9; Est GFR (Non-African American) 71.5; Potassium 4.3 mmol/L (3.5-5.1)
[2019-03-11] MEDS ORDERED: CANNULA ONE (10:42)
[2019-03-11] MEDS ORDERED: BENZOCAIN/TETRACA/BUTAM SPRAY 200 APPLN/20 GM SPRY EXT ONE (10:42)
--- NOTE | 2019-03-11 10:46 | Medical Student Progress Note ---
Date of Service March 11, 2019 Assessment & Plan (1) Infective endocarditis: Day 2 of admission for 74 WF w/ PMH significant for COPD, paroxysmal Atrial Fibrillation, h/o of Lung CA- s/p LLL Lobectomy in 2017- current smoker, anemia and RA who presented with h/o recent falls, syncope, HARVEY and suspected CHF. 03/10/19 CT/MRI neg TTE performed yesterday displayed preserved LVEF, however there were abnormal MV vegetations that were present as well as suspected AV vegetations. She also had petechiae b/L on her LE and with a suspicious "blister" on her R. 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 Suspicion for endocarditis warranted further workup using ISSA for better valvular visualization. She also presented with back pain and Left upper thigh pain attributed to two falls suffered within the span of the past 3 wks w/ a Lumbar MRI needing to be ordered. The differential of SBE vs NBTE was considered. Her presentation was not typical in the absence of fever and visible/known trauma, NAIR, hemorrhagic splintering of nailbeds, infarcts, ETC. However she did have mild petechia b/l and this suspicious blister could arguably be an Osler Nodule. Most common cause for NBTE include autoimmune disease such as her RA. However, she is postmenopausal and anticoagulated on Xeralto. The TTE was helpful to identify valvular abnormality, however a ISSA would provide better visualization to assess valvular vegetations due to less tissue for the sound waves to penetrate and the positioning of the heart in respect to the probe entering from the esophagus. Blood Cxs were still pending. 03/11/19 Lumbar Spine MRI from yesterday revealed discitis osteomyelitis T11-T12 and L3- L4, an 11mm abscess L3-L4, and also L psoas myositis. ISSA today displayed thick vegetations on MV with mild MR and mild AV vegetations. Not believed to be due to RA based on size and characteristics of vegetation. 2/2 Blood Cxs grew "gram positive cocci in chains". Genus still pending however strep viridans is most common oral etiology. Although no gingivitis was observed on exam, in light of recent h/o dental procedure, this is a probable source of infections. It is likely that she has IE. Possibly Subacute in the afebrile setting along with stable vitals. She meets at least 2 major criteria: Gram pos cocci c ultures, Abscess, Osteomyelitis, Vegetations, new onset of MV regurgitation Also supportive minor criteria: petechiae, possible Osler node. Appreciate ID consult Repeat MRI as she is at risk for septic emboli. Started on IV Vancomycin this morning, Rocephin was also added, will need to continue Abx therapy for about 6wks. Rocephin possibly helpful prophylactically if there are septic emboli to the brain as it can cross BBB in the setting of inflamed brain parenchyma. She will need to either have home nursing assist with administration of medication in outpt setting or have to drive onsite everyday for administration. Onde tx is completed she will need to return for medical evaluation. Schedule outpt Cardiology and ID f/u upon d/c. (2) Dyspnea: In light of her COPD, this is not likely d/t an exacerbation She had syncope in the setting of vegetations on MV/AV H/o non small cell lung CA s/p LLL lobectomy 09/2017 She had cholesterol nodules appreciated on bronchoscope from 03/10 that were not amendable to the scope Current Tx included: Lasix 40mg- she has diuresed well Continue Albuterol Appreciate Pulm Consult Dyspnea type: unspecified Qualified Code(s): R06.00 - Dyspnea, unspecified (3) Gram positive sepsis: See "infective endocarditis" above (4) Valvular vegetation: See "Bacterial Endocarditis" above appreciate Cardiology note (5) Syncope: Syncopal episodes may be attribute to valvular vegetations from newly diagnosed infectious endocarditis. See "Infectious Endocarditis" above Appreciate Cardio Consult in conjunction with Pulm consult (6) Discitis of multiple sites of spine: See "Infective Endocarditis" above Ortho-spine was consulted in regards to surgical intervention. They deemed it to be nonoperative based on size and presentation and best managed with abx therapy (as stated above in "infective endocarditis"). We will also observe clinical progression in the setting of abx therapy to assist in indication of further intervention. Current Pertinent negative: Although she had a documented finding of psoas myositis that may explain he left upper lateral thigh pain, her Neuro exam is unremarkable for anything that supports cord compression and she does not endorse any form of incontinence. Appreciate Ortho Consult as well as ID consult. (7) Rheumatoid arthritis: Rheumatoid arthritis location: unspecified site Rheumatoid factor presence: unspecified presence Qualified Code(s): M06.9 - Rheumatoid arthritis, unspecified (8) Atrial fibrillation: Since her surgery in 2017, she hasn't experienced any documented or self- reported AF. She has RRR on exam and per tele. Currently anticoagulated on Xeralto as prophylaxis. But in light of vegetations, she may still be at risk for septic emboli. (Her blister may be an Osler nodule and she can be at risk to cerebral emboli as well) Remain on tele. Continue Xeralto prophylaxis Appreciate Cardio consult. Atrial fibrillation type: unspecified Qualified Code(s): I48.91 - Unspecified atrial fibrillation (9) Blister: Suspicious for Osler nodule, however non tender to palpation on exam. monitor in setting of Abx Appreciate ID consult (10) Mucus plugging of bronchi: Appreciate Pulm consult This was found in lower trachea. Currently not inhibiting airway as viewed on 03/10 bronchoscopy (11) Anemia: Stable She received plasma and RBCs about a week ago No hematechezia or melena present Has colonoscopy scheduled for next week (12) Lung cancer: S/p LLL lobectomy and 4 rds of chemo 09/2017 for non-small cell carcinoma. Her port remains in place, this may be another source of infection, not likely based on Blood Cxs, however not able to rule out 100% as we await more growth. Port can be used as a site for IV Abx administration as she has difficulty with obtaining IV access peripherally. (13) DVT prophylaxis: Xeralto Status: Telemetry Code: Not ordere Access: Peripheral IV; Left Subclavicular Port Disposition: Maintain on tele as we await repeat blood cultures to grow Subjective Review of Systems All systems reviewed & are unremarkable except as noted in HPI & below c/c: back pain No acute overnight events NSR per tele Tolerated ISSA well; recovering from anesthesia Back pain is 7/10 sitting, radiates to thighs b/l, relieved with standing, has received Toradol Ambulating often with cane, requires assistance to stand and sit. Has appetite but eating is difficult due to positional difficulty. She disclosed that she also had a recent dental procedure performed a few wks ago, she had "caps replaced". Requests to have "2 puffs" of a cigarette. [id number] in room reported that she usually smokes heavily and may be having withdrawal. Denies offer for nicotine patch Has not received her Xanax, PRN since being admitted. Takes this daily AM as ho me med Constitutional: + weakness (Unable to sit upright w/o support); no chills, no fatigue, no anorexia, no weight gain and no increased appetite Respiratory: + dyspnea (reports treatments have been helping and feels better); no cough, no chest congestion, no hemoptysis and no wheezing Cardiovascular: no chest pain, no chest pain at rest, no orthopnea, no lightheadedness, no syncope and no edema Gastrointestinal: no abdominal pain, no dysphagia, no change in bowel habits, no change in stools, no constipation, no fecal incontin ence, no constant urge to pass stools, no blood in stools and no melena Musculoskeletal: + back pain (lower back) Neurologic: + falls (h/o of fall from 2-3 wks ago) Psychiatric: + anxiety (not sure what's causing her to stay in the hospital) Hematologic / Lymphatic: no easy bruising, no night sweats and no unexplained weight loss Physical Exam Vital Signs (Past 24 Hours): Last Vital Signs Temp 36.5 C 03/11/19 10:15 Pulse 89 03/11/19 10:15 Resp 18 03/11/19 10:15 BP 155/61 H 03/11/19 10:15 Pulse Ox 92 03/11/19 10:15 Constitutional: WD/WN, vitals as above + frail appearing Eyes: PERRL, conjunctivae normal, anicteric sclerae EOM intact bilaterally; no nystagmus ENMT: external ear and nose normal, oropharynx normal Neck: trachea midline, no thyromegaly Respiratory: normal respiratory effort, lungs clear to auscultation no tactile fremitus Auscultation: + diminished lung sounds (LLL, s/p lobectomy); no crackles, no rales, no rhonchi, no wheezes and no pleural rub Cardiovascular: Rate/Rhythm: regular rate and regular rhythm Heart Sounds: normal S1, normal S2 and + murmur (1/6 holosyctolic murmur at PMI; L mid clavicular, 5th ICS) Palpation: normal PMI Vessels: normal carotid upstroke, posterior tibial pulses present, dorsalis pedis pulses present and radial pulses present; no JVD and no carotid bruit Extremities: no edema Chest (Breasts): Chest: + vascular access device or port (L subclavicular) Gastrointestinal (Abdomen): normal bowel sounds, soft, nontender, no hepatosplenomegaly Musculoskeletal: Head/Neck/Chest: + head abnormal to inspection (Contusion R. forehead) and normocephalic Spine: + lumbar spinal tenderness (T11-L4) and + buttock ecchymosis (erythematous); no buttock tenderness Extremities: strength 5/5 throughout (4+/5 throughout), + clubbing, + petechiae (B/L LEs) and + hand abnormality (ulnar deviation b/l) Gait: + antalgic gait Skin: + rash (R. Thumb- Osler nodule; petechaie b/l LEs) Trauma: + cont usion (R. forehead improving) Neurologic: patellar DTR's 2+ bilat, sensation intact and PERRL, EOMI, accommodation nl, no face palsy, no dysarthria normal touch/pain/p roprioception, plantar reflexes intact bilaterally, moves all extremities and awake Motor/Sensory: + tremor (action tremor observed when she reaches to grab cup of coffee) Gait: + gait assisted (walker and/or person) Psychiatric: A+Ox3, euthymic affect Orientation: cooperative Apperance: appropriately dressed and appeared stated age Eye Contact: good eye contact Motor Behavior: + tremor (b/l action tremor as above) Speech: normal rate/rhythm/volume of speech Affect: + anxious affect Insight: + poor insight Lymphatic: no cervical or axillary lymphadenopathy
--- NOTE | 2019-03-11 10:51 | Infectious Disease Consult ---
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 Suspect strep as causative organism, follow final cultures, sensitivities, repeat cultures pending. Continue vanco for now. will add Rocephin awaiting additional culture data. Suspect subacute IE due to skin findings. Discussed at length with patient the need for ongoing abx and the potential severity of her illness. Explained that she is at risk for continued metastatic sites of infection. suspect skin findings related to IE. Highly concerned for CVA, especially if vegetations are large, this was explained to patient in detail. D iscussed with primary, she has been having syncope and falls at home, MRI recently negative but would suggest repeat imaging of head to r/o infected emboli. If vegetations are large would consider transfer for valve replacement. No signs of cord compression on MRI, hopefully no ortho intervention needed. will continue to follow. She will need a min of 6 weeks of abx but will need to r/o need for surgical intervention prior to d/c. (2) Gram positive sepsis: (3) Discitis of multiple sites of spine: History of Present Illness Attending Physician: Kyara Meehan MD pt admitted with increased SOB and falls/syncope at home, she states this has been ongoing for 2-3 weeks. States she saw her PCP recently for leg edema, given lasix with improvement. Found to have compression fracture due to fall recently, MRI brain was negative. She continues to have back pain and states she needs to be careful with movement due to ongoing discomfort and pain, denies pain at rest. MRI L spine done in ER, T11-T12, L3-L4 discitis with osteo, Left psoas myositis noted. She has been afebrile and denies f/c at home. no recent abx at home. WBC 6 in ER. Blood cultures done as part of her initial workup and are growing gpc in chains in 2/2 sets. TTE done yesterday, ? AV veg, moderated sized MV veg noted. ISSA was scheduled for this am and completed. She is seen post ISSA, tolerated well. She was started on Vanco this am. CXR and CTA negative, has h/o lung cancer with RLL lobectomy in 2017, continues to smoke. asking repeatedly during my exam to go outside and smoke. She is tolerating vanco. She denies cp, sob, jeter, cough, wheeze. states some sob while lying flat. no abd pain, no n/v/d, no gu symptoms. Appetite stable. she states other than falls, which she states are "normal for a 74 year old woman", she has been doing well. Denies any cuts/scrapes to skin due to falls. Repeat blood cultures pending. She states she is willing to take abx for as long as needed but she does not want to be in the hospital any more because she wants to sit outside and smoke. She is asking to go outside now and have 1 cigarette and states she will feel much better about staying in the hospital for the rest of today if she is able to do this. Initial ISSA report - vegetation on both MV and AV. Allergies Allergy/AdvReac Type Severity Reaction Status Date / Time No Known Allergies Allergy Verified 03/04/19 08:56 Home Medications Home Medications Medication Instructions Recorded Confirmed Type Xarelto 20 mg PO DAILY 12/14/18 03/10/19 History alprazolam 0.5 mg PO DAILY 12/14/18 03/10/19 History ascorbic acid (vitamin C) [Vitamin 500 mg PO DAILY 12/14/18 03/10/19 History C] benzonatate 100 mg PO TID PRN 12/14/18 03/10/19 History cholecalciferol (vitamin D3) 5,000 unit PO DAILY 12/14/18 03/10/19 History [Vitamin D3] diltiazem HCl 240 mg PO DAILY 12/14/18 03/10/19 History docusate sodium [Colace] 100 mg PO BID PRN 12/14/18 03/10/19 History echinacea 500 mg PO DAILY PRN 12/14/18 03/10/19 History Fluid Pill 1 dose PO DIRECTED 03/10/19 03/10/19 History acetaminophen 500 - 1,000 mg PO Q6H PRN 03/10/19 03/10/19 History tramadol 50 mg PO DAILY 03/10/19 03/10/19 History Patient History Medical History Arthritis (Chronic) Atrial fibrillation with RVR Lung cancer Surgical History S/P lobectomy of lung LLL, in 09/2017 Family History Father Hypertension Social History Preferred Language: Thai Communication Ability: Effective Visual Impairment: No Limitations Hearing Ability: Normal 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: No Beliefs That Will Affect Care: None Current Living Situation: Alone Other Information That Helps Us Care for You: No Feels Safe at Home: Yes Safety Concerns: Feels Safe At This Time Smoking Status: Current every day smoker Tobacco Type: cigarettes Cigarettes Per Day: 10-20 Do You Dip or Chew Tobacco: No Second Hand Exposure: No Tobacco Cessation Education Requested by Patient: No Hx Alcohol Use: No Hx Substance Use: No Review of Systems Review of Systems: All systems reviewed & are unremarkable except as noted in HPI & below Physical Exam Constitutional: WD/WN, vitals as above Eyes: PERRL, conjunctivae normal, anicteric sclerae ENMT: external ear and nose normal, oropharynx normal Neck: normal visual inspection Respiratory: normal respiratory effort, lungs clear to auscultation no respiratory distress and no labored breathing Cardiovascular: Rate/Rhythm: regular rate and regular rhythm Heart Sounds: + murmur Gastrointestinal (Abdomen): normal bowel sounds, soft, nontender, no hepatosplenomegaly Musculoskeletal: no cyanosis or clubbing, extremities motor strength 5/5 Skin: + rash Trauma: + contusion b/l le petechial rash noted, states has been present for weeks. Right thumb lesion - black circular lesion noted, consistent with Osler node, however non tender, no surrounding erythema. left lateral thigh with brusing. no open wounds noted, no cuts/scrapes noted Psychiatric: A+Ox3, euthymic affect Insight: + poor insight Results & Data Vital Signs (Past 12 Hours) Vital Signs Temp Pulse Pulse Pulse Resp BP BP 03/11/19 10:15 36.5 C 89 18 155/61 H 03/11/19 09:54 93 H 14 154/72 H 03/11/19 09:45 94 H 16 154/72 H 03/11/19 09:35 93 H 16 140/57 L 03/11/19 09:25 36.7 C 93 H 18 139/81 03/11/19 09:23 03/11/19 09:20 86 20 144/60 H 03/11/19 09:15 87 20 147/54 H 03/11/19 09:10 103 H 12 147/69 H 03/11/19 09:05 97 H 12 144/62 H 03/11/19 09:01 92 H 16 145/68 H 03/11/19 07:50 36.5 C 81 20 L 154/65 H 03/11/19 07:07 85 18 03/11/19 04:30 36.6 C 86 18 135/78 03/11/19 00:11 36.6 C 92 H 18 139/70 Pulse Ox 03/11/19 10:15 92 03/11/19 09:54 93 03/11/19 09:45 95 03/11/19 09:35 95 03/11/19 09:25 100 03/11/19 09:23 98 03/11/19 09:20 98 03/11/19 09:15 100 03/11/19 09:10 98 03/11/19 09:05 96 03/11/19 09:01 98 03/11/19 07:50 94 03/11/19 07:07 94 03/11/19 04:30 93 03/11/19 00:11 94 Laboratory Results Microbiology 03/10/19 12:11 Blood Blood Culture - Preliminary Gram positive cocci in chains 03/10/19 12:11 Blood Blood Culture - Preliminary Gram positive cocci in chains
[2019-03-11] MEDS: cefTRIAXone SODIUM 2,000 MG in DEXTROSE 5% 50 ML IV SCH (11:55)
--- NOTE | 2019-03-11 14:42 | Orthopedic Consultation ---
Date of Consultation March 11, 2019 Assessment & Plan (1) Discitis of multiple sites of spine: At this time and lungs this patient and her family regarding her MRI findings and clinical course. Regarding her lumbar spine and the discitis. Would hopefully resolve with appropriate antibiotic management and the passage of time. We will fit her with a brace for comfort with to be used for transfers and ambulation. The MRI does however demonstrate evidence of significant neuroforaminal stenosis at the L3-4 level and to some degree the L5-S1 level. I do not appreciate any epidural abscess. Present on Admission?: Yes History of Present Illness Reason for Consultation: Back pain Attending Physician: Kyara Meehan MD History of Present Illness This is a very pleasant 74-year-old female presents last evening with worsening back pain. Upon work-up it was noted that she had discitis at the T11-12 L3-L4 levels with associated abscess at the 3 4 level within the left iliopsoas musculature. She is also noted to have vegetations on the mitral and aortic valves. Blood cultures are demonstrating gram-positive cocci. She states she did fall approximately 2 weeks ago when trying to sit down and missing the chair. At that time she began having more back pain. She was initially scheduled for a brace prior to her admission to the hospital. During our discussion today she is comfortable she states however with motion sitting and walking her back pain can become quite limiting in nature. She denies any radicular complaints during our discussion at this time. Allergies Allergy/AdvReac Type Severity Reaction Status Date / Time No Known Allergies Allergy Verified 03/04/19 08:56 Home Medications Home Medications Medication Instructions Recorded Confirmed Type Xarelto 20 mg PO DAILY 12/14/18 03/10/19 History alprazolam 0.5 mg PO DAILY 12/14/18 03/10/19 History ascorbic acid (vitamin C) [Vitamin 500 mg PO DAILY 12/14/18 03/10/19 History C] benzonatate 100 mg PO TID PRN 12/14/18 03/10/19 History cholecalciferol (vitamin D3) 5,000 unit PO DAILY 12/14/18 03/10/19 History [Vitamin D3] diltiazem HCl 240 mg PO DAILY 12/14/18 03/10/19 History docusate sodium [Colace] 100 mg PO BID PRN 12/14/18 03/10/19 History echinacea 500 mg PO DAILY PRN 12/14/18 03/10/19 History Fluid Pill 1 dose PO DIRECTED 03/10/19 03/10/19 History acetaminophen 500 - 1,000 mg PO Q6H PRN 03/10/19 03/10/19 History tramadol 50 mg PO DAILY 03/10/19 03/10/19 History Patient History Medical History Arthritis (Chronic) Atrial fibrillation with RVR Lung cancer Surgical History S/P lobectomy of lung LLL, in 09/2017 Family History Father Hypertension Social History Preferred Language: Latvian Communication Ability: Effective Visual Impairment: No Limitations Hearing Ability: Normal Biomedical Engineering Supervisor Required: No Beliefs That Will Affect Care: None Current Living Situation: Alone Other Information That Helps Us Care for You: No Feels Safe at Home: Yes Safety Concerns: Feels Safe At This Time Smoking Status: Current every day smoker Tobacco Type: cigarettes Cigarettes Per Day: 10-20 Do You Dip or Chew Tobacco: No Second Hand Exposure: No Tobacco Cessation Education Requested by Patient: No Hx Alcohol Use: No Hx Substance Use: No Physical Exam Physical Exam: On exam she has reasonable strength testing. Again she is comfortable. She is able to sit up in bed with assistance there is no abnormal skin markings throughout the thoracolumbar spine. Nontender palpation. Results & Data Vital Signs (Past 12 Hours) Vital Signs Temp Pulse Pulse Pulse Resp BP BP 03/11/19 11:36 36.7 C 84 16 148/65 H 03/11/19 11:00 91 H 18 03/11/19 10:30 96 H 18 151/68 H 03/11/19 10:15 36.5 C 89 18 155/61 H 03/11/19 09:54 93 H 14 154/72 H 03/11/19 09:45 94 H 16 154/72 H 03/11/19 09:35 93 H 16 140/57 L 03/11/19 09:25 36.7 C 93 H 18 139/81 03/11/19 09:23 03/11/19 09:20 86 20 144/60 H 03/11/19 09:15 87 20 147/54 H 03/11/19 09:10 103 H 12 147/69 H 03/11/19 09:05 97 H 12 144/62 H 03/11/19 09:01 92 H 16 145/68 H 03/11/19 07:50 36.5 C 81 20 L 154/65 H 03/11/19 07:07 85 18 03/11/19 04:30 36.6 C 86 18 135/78 Pulse Ox 03/11/19 11:36 92 03/11/19 11:00 92 03/11/19 10:30 91 03/11/19 10:15 92 03/11/19 09:54 93 03/11/19 09:45 95 03/11/19 09:35 95 03/11/19 09:25 100 03/11/19 09:23 98 03/11/19 09:20 98 03/11/19 09:15 100 03/11/19 09:10 98 03/11/19 09:05 96 03/11/19 09:01 98 03/11/19 07:50 94 03/11/19 07:07 94 03/11/19 04:30 93
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
[2019-03-11] MEDS ORDERED: ALPRAZolam 0.5 MG TABLET PO PRN (15:55)
[2019-03-11] MEDS ORDERED: NICOTINE 21 MG/24 HR TDSY TD PRN (15:55)
[2019-03-11] MEDS ORDERED: GADOBUTROL 65ML VIAL IV PRN (17:21)
--- NOTE | 2019-03-11 17:54 | Magnetic Resonance Report ---
MR brain wo/w con HISTORY: 74 years-old Female infective endocarditis,r/o cerebral emboli acute headache with recent s yncope COMPARISON: MRI of the brain 02/22/2019 and 10/22/2017 TECHNIQUE: Multiplanar multisequence MRI of the brain was obtained both with and without the use of 4 .5 mL Gadavist FINDINGS: The large field of view head esthetician localizer images demonstrate no gross extracranial abnormality. There i s no restricted diffusion to suggest acute or subacute infarction. The midline structures including t he corpus callosum, brainstem, optic chiasm, pituitary and pineal glands appear unremarkable the sagi ttal T1 series. There is no cerebellar tonsillar herniation. Imaged and changes are noted about the i kaleb cervical spine. There is no acute intracranial hemorrhage, midline shift, abnormal extra-axial collections, hydroceph alus or intracranial mass identified. Mild age-related involutional changes. Moderate T2/FLAIR hyperi ntensities about the subcortical and periventricular white matter are suggestive of chronic microvasc ular ischemic changes. 6 x 5 mm ovoid focus of ill-defined increased signal about the central nilay is noted on the postcontrast series, image 10 series 9. This was not present on comparison study from 1 12/23/2016 and is also not present on the thin section postcontrast images compatible with artifact. Th ere is no additional abnormal intra-axial or extra-axial enhancement identified. Senescent calcificat ions noted about the lentiform nuclei. Flow voids at the level the skull base appear patent. The study is mildly motion degraded. Mastoid ai r cells are clear. Prior bilateral cataract appear. Mild mucosal thickening of the paranasal sinuses. Skull and soft tissues are unremarkable. IMPRESSION: 1. No acute intracranial abnormality. 2. No abnormal enhancement. 3. Mild age-related involutional changes with moderate chronic microvascular ischemic changes. 4. Mild paranasal sinus disease. The above report was generated using voice recognition software. It may contain grammatical, syntax o r spelling errors. Electronically signed by: Junior Rocha M.D. 03/11/2019 5:52 PM
[2019-03-11] MEDS: RIVAROXABAN 15 MG TAB PO SCH (17:57)
--- NOTE | 2019-03-11 19:01 | Cardiology Progress Note ---
Date of Service March 11, 2019 Assessment & Plan (1) Dyspnea: This appears to be improved. Possibly related to an element of pulmonary vascular congestion. This could been related to development of mitral regurgitation although on today's examination this is not appear to be severe. 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 The exact organism is yet to be identified but possibly Streptococcus. Reportedly she had recent dental procedure as well. She was started on antibiotics which will likely be tailored according to the organism in sensitivities. I do not believe there is a current indication for surgical evaluation. The lesion is somewhat large, but I think a course of antibiotic treatment would be in her best interest rather than surgery at this point. (3) Atrial fibrillation: She has not had evidence of recurrent atrial arrhythmias since her discharge after surgery. She was seen on an outpatient basis and again had no definite recurrence of atrial fibrillation. Still at risk of recurrent arrhythmias given her comorbidities. Will keep her on telemetry this time. (4) Syncope: We can continue telemetry monitoring. It seems unlikely given the normal brain MRI that her endocarditis played any role in the syncope. Subjective Patient continues to have an element of back pain which waxes and wanes in severity. This is somewhat positional in nature. She denies any breathing difficulty currently. She has no symptoms of chest discomfort she was somewhat upset regarding her overall clinical course. Review of Systems Review of Systems: Per HPI Physical Exam Physical Exam: She is alert and oriented x3. Mood affect appear normal. She answered all questions appropriately. HEENT: Sclerae are anicteric. Pupils are equal and reactive to light and accommodation. Extraocular movements were intact. Neuro: Cranial nerves intact Lungs: Lungs are clear to auscultation bilaterally. There are no rales wheezes or rhonchi. She has normal respiratory effort without use of accessory muscles. There is normal pulmonary excursion. Cardiac: The rhythm was regular. S1 and S2 were normal. Holosystolic murmur. Extremities: Patient has bilateral radial pulses that are equal in intensity. There is no evidence cyanosis or clubbing. There was no evidence of significant peripheral edema bilaterally. Results & Data Vital Signs (Past 12 Hours) Vital Signs Temp Pulse Pulse Pulse Resp BP BP 03/11/19 16:00 91 H 03/11/19 11:36 36.7 C 84 16 148/65 H 03/11/19 11:00 91 H 18 03/11/19 10:30 96 H 18 151/68 H 03/11/19 10:15 36.5 C 89 18 155/61 H 03/11/19 09:54 93 H 14 154/72 H 03/11/19 09:45 94 H 16 154/72 H 03/11/19 09:35 93 H 16 140/57 L 03/11/19 09:25 36.7 C 93 H 18 139/81 03/11/19 09:23 03/11/19 09:20 86 20 144/60 H 03/11/19 09:15 87 20 147/54 H 03/11/19 09:10 103 H 12 147/69 H 03/11/19 09:05 97 H 12 144/62 H 03/11/19 09:01 92 H 16 145/68 H 03/11/19 07:50 36.5 C 81 20 L 154/65 H 03/11/19 07:07 85 18 Pulse Ox 03/11/19 16:00 03/11/19 11:36 92 03/11/19 11:00 92 03/11/19 10:30 91 03/11/19 10:15 92 03/11/19 09:54 93 03/11/19 09:45 95 03/11/19 09:35 95 03/11/19 09:25 100 03/11/19 09:23 98 03/11/19 09:20 98 03/11/19 09:15 100 03/11/19 09:10 98 03/11/19 09:05 96 03/11/19 09:01 98 03/11/19 07:50 94 03/11/19 07:07 94 Laboratory Results Abnormal Lab Results 03/11/19 03/11/19 03/11/19 00:21 05:22 05:24 Sodium 139 Potassium 4.3 D Chloride 108 H Carbon Dioxide 25 Anion Gap 6.0 BUN 24 H Creatinine 0.81 0.76 Est Cr Clr Drug Dosing 41.6 44.3 Est GFR ( Amer) 82.9 89.6 Est GFR (Non-Af Amer) 71.5 77.3 BUN/Creatinine Ratio 29.4 H Glucose 102 H Calcium 8.2 L Urine Color Yellow Urine Appearance Cloudy H Urine pH 6.5 Ur Specific [place] 1.028 Urine Protein 2+ H Urine Glucose (UA) Negative Urine Ketones Negative Urine Blood 3+ H Urine Nitrite Negative Urine Bilirubin Negative Urine Urobilinogen Negative Ur Leukocyte Esterase Negative Urine WBC (Auto) 5-10 H Urine RBC (Auto) >30 H U Hyaline Cast (Auto) 1-5 U Epithel Cells (Auto) 20-30 H Urine Bacteria (Auto) 2+ H Diagnostic Findings Blood cultures revealed gram-positive cocci, possibly Streptococcus Brain MRI did not demonstrate any evidence embolic phenomena Kj performed today revealed lesions on both the mitral and aortic valve. The size of the mitral vegetation appears to be between 8 and 10 millimeters in greatest dimension CT scan revealed evidence of diskitis as well as a psoas abscess (1) Dyspnea Dyspnea type: unspecified Qualified Code(s): R06.00 - Dyspnea, unspecified (2) Atrial fibrillation Atrial fibrillation type: unspecified Qualified Code(s): I48.91 - Unspecified atrial fibrillation
[2019-03-11] MEDS: VANCOMYCIN HCL 750 MG in SODIUM CHLORIDE 0.9% 250 ML IV SCH (20:25)
[2019-03-11] MEDS: TRAMADOL HCL 50 MG TABLET PO PRN (20:25)
[2019-03-11] MEDS ORDERED: HEPARIN 100 UNIT/ML 5ML FLUSH FLUSH PRN (23:08)
[2019-03-12] MEDS ORDERED: FUROSEMIDE 20 MG in SYRINGE 0 ML IV ONE (00:39)
[2019-03-12] MEDS ORDERED: FUROSEMIDE 40 MG/4 ML VIAL IV ONE (00:42)
[2019-03-12 06:31] LABS: Creatinine Clr Calc Pharmacy 42.1 ml/min; Est GFR (African American) 84.2; Est GFR (Non-African American) 72.6
[2019-03-12 06:42] LABS: Basophils # (auto) 0.01 K/uL (0-0.2); Basophils % (auto) 0.1 %; Eosinophils # (auto) 0.01 K/uL (0-0.5); Eosinophils % (auto) 0.1 %; Hematocrit (blood only) 26.6 % (37-47); Hemoglobin 8.3 g/dL (12.0-16.0); Immature Granulocytes # (auto) 0.02 K/uL (0.00-0.02); Immature Granulocytes % (auto) 0.3 %; Lymphocytes # (auto) 0.86 K/uL (1.2-3.4); Lymphocytes % (auto) 11.9 %; Mean Corpuscular Hgb Conc 31.2 g/dL (32-36); Mean Corpuscular Volume 85.3 fL (80-100); Mean Platelet Volume 9.1 fL (7.4-10.4); Monocytes # (auto) 0.52 K/uL (0.11-0.59); Monocytes % (auto) 7.2 %; Neutrophils # (auto) 5.82 K/uL (1.4-6.5); Neutrophils % (auto) 80.4 %; Platelet Count 196 K/uL (130-400); RDW Coefficient of Variation 17.5 % (11.5-14.5); RDW Standard Deviation 55.1 fL (36.4-46.3); Red Blood Count 3.12 M/uL (4.2-5.4); White Blood Count 7.24 K/uL (4.8-10.8)
[2019-03-12 06:53] LABS: INR 1.3 (0.9-1.1); Partial Thromboplastin Ratio 1.2; Partial Thromboplastin Time 33.3 Seconds (21.0-31.0); Prothrombin Time 13.5 Seconds (9.0-12.0)
[2019-03-12] MEDS: ALBUT/IPRATROP 3MG/0.5MG NEB 3 ML VIAL NEB SCH ×4 (06:59→18:51)
[2019-03-12 07:17] LABS: BUN Creatinine Ratio 24.6 (10-20); Creatinine Clr Calc Pharmacy 41.6 ml/min; Est GFR (African American) 82.9; Est GFR (Non-African American) 71.5; Magnesium 2.1 mg/dl (1.8-2.4); Potassium 4.3 mmol/L (3.5-5.1)
[2019-03-12 07:26] LABS: Bilirubin,Total 0.4 mg/dl (0.2-1); Total Protein 6.6 gm/dl (6.4-8.2)
[2019-03-12] MEDS: TRAMADOL HCL 50 MG TABLET PO PRN ×3 (08:43→20:47)
[2019-03-12] MEDS: ALPRAZolam 0.5 MG TABLET PO SCH (08:44)
[2019-03-12] MEDS: dilTIAZem HCL 240 MG CAPCR PO SCH (08:44)
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
[2019-03-12] MEDS ORDERED: VANCOMYCIN TROUGH ONE (11:30)
[2019-03-12] MEDS: VANCOMYCIN HCL 750 MG in SODIUM CHLORIDE 0.9% 250 ML IV SCH (11:48)
[2019-03-12] MEDS: cefTRIAXone SODIUM 2,000 MG in DEXTROSE 5% 50 ML IV SCH (11:48)
--- NOTE | 2019-03-12 13:03 | Pharmacy Report ---
Pharmacy Abx Dose Short Note - Date of Service March 12, 2019 - Assessment & Plan Assessment 74 year old F receiving Vancomycin for treatment of bacteremia + endocarditis Day # 2 of antimicrobial therapy. Laboratory Tests 03/12/19 11:24 Vancomycin Trough 14.8 Plan Vancomycin * Trough level of 14.8 mcg/mL is near-therapeutic. * Level was drawn after only 1 maintenance dose of Vancomycin and therefore it is not at steady-state. I expect level to be higher and within goal trough range of 15-20 in the next day or so. Level was drawn early d/t patient with low body weight, to make sure she was clearing it well. * Continued Vancomycin 750 mg IV q16h. * Trough level ordered for: 03/14/19 before dose at 1200 to confirm dosing is appropriate. Pharmacy will continue to follow and will adjust dose/frequency as necessary. Thank you.
[2019-03-12] MEDS: RIVAROXABAN 15 MG TAB PO SCH (15:09)
[2019-03-13] MEDS: VANCOMYCIN HCL 750 MG in SODIUM CHLORIDE 0.9% 250 ML IV SCH (03:31)
[2019-03-13 06:58] LABS: Basophils # (auto) 0.01 K/uL (0-0.2); Basophils % (auto) 0.2 %; Eosinophils # (auto) 0.04 K/uL (0-0.5); Eosinophils % (auto) 0.8 %; Hematocrit (blood only) 22.6 % (37-47); Hemoglobin 7.1 g/dL (12.0-16.0); Immature Granulocytes # (auto) 0.01 K/uL (0.00-0.02); Immature Granulocytes % (auto) 0.2 %; Lymphocytes % (auto) 20.7 %; Mean Corpuscular Hgb Conc 31.4 g/dL (32-36); Mean Corpuscular Volume 86.3 fL (80-100); Monocytes # (auto) 0.57 K/uL (0.11-0.59); Monocytes % (auto) 10.7 %; Neutrophils # (auto) 3.59 K/uL (1.4-6.5); Neutrophils % (auto) 67.4 %; Platelet Count 196 K/uL (130-400); RDW Coefficient of Variation 17.5 % (11.5-14.5); RDW Standard Deviation 55.5 fL (36.4-46.3); Red Blood Count 2.62 M/uL (4.2-5.4); White Blood Count 5.32 K/uL (4.8-10.8)
[2019-03-13] MEDS: ALBUT/IPRATROP 3MG/0.5MG NEB 3 ML VIAL NEB SCH ×4 (07:12→19:00)
[2019-03-13 07:16] LABS: BUN Creatinine Ratio 26.8 (10-20); Creatinine Clr Calc Pharmacy 48.8 ml/min; Est GFR (African American) 99.4; Est GFR (Non-African American) 85.8; Potassium 3.9 mmol/L (3.5-5.1)
--- NOTE | 2019-03-13 07:32 | Infectious Disease Progress Nt ---
Date of Service March 13, 2019 Assessment & Plan (1) Infective endocarditis: pt with both MV and AV vegetations. All blood cultures + for strep species, not yet identified. Urine culture now growing Enterococcus, final pending. follow final cultures, sensitivities, repeat cultures x 2 today as 03/12 culture now + as well. No emboli seen on brain MRI. concerned that blood cultures remain + on vanco and ctx. Suspect strep species from blood cultures will be Enterococcus as well. For now will change to amp and ctx (high dose) and repeat blood cultures. will await final ID/sensitivities. If Enteroccus with pcn resistance, may need dapto, however, would prefer to treat with amp and ctx if able. If she remains with persistently + blood cultures despite abx, she would benefit from surgical eval. will follow. (2) Gram positive sepsis: (3) Discitis of multiple sites of spine: Subjective All blood cultures remain + - "strep species" 03/12 gpc in chains. Urine culture now growing >100,000 Enterococcus, sensitivities pending, UA 5-10 wbc. ISSA with small AV veg and large MV veg. afebrile. wbc 5.3. Remains afebrile. MRI brain on 03/11 - negative for embolic disease. tolerating abx, remains on CTX and vanco. No futher ID of strep species from blood cultures yet Results & Data Vital Signs (Past 12 Hours) Vital Signs Temp Pulse Pulse Pulse Resp BP Pulse Ox 03/13/19 06:28 36.6 C 76 22 159/61 H 99 03/13/19 04:20 36.8 C 85 20 152/67 H 99 03/13/19 00:00 03/12/19 23:26 37 C 98 H 18 155/65 H 98 03/12/19 22:50 92 H 03/12/19 19:47 36.9 C 99 H 18 157/65 H 90 Pulse Ox 03/13/19 06:28 03/13/19 04:20 03/13/19 00:00 96 03/12/19 23:26 03/12/19 22:50 03/12/19 19:47 Laboratory Results Microbiology 03/12/19 06:28 Blood Blood Culture - Preliminary Gram positive cocci in chains 03/11/19 07:36 Blood Blood Culture - Preliminary Streptococcus species 03/10/19 12:11 Blood Blood Culture - Preliminary Streptococcus species 03/10/19 12:11 Blood Blood Culture - Preliminary Streptococcus species 03/11/19 00:21 Urine,Random Urine Culture - Preliminary Enterococcus species 03/11/19 06:53 Blood Blood Culture - Preliminary Gram positive cocci
[2019-03-13 07:48] LABS: Giant Platelets 1+; Polychromasia 1+
[2019-03-13] MEDS ORDERED: SODIUM CHLORIDE 0.9% 250 ML IV PRN ×2 (08:40→17:04)
[2019-03-13 09:22] LABS: Reticulocyte % 3.1 % (0.5-2.0); Reticulocytes # 0.09 10^6/uL (0.02-0.10)
[2019-03-13] MEDS: AMPICILLIN 2,000 MG in SODIUM CHLOR 0.9% AD-VAN 100 ML IV SCH ×3 (09:27→20:20)
[2019-03-13] MEDS: TRAMADOL HCL 50 MG TABLET PO PRN ×2 (09:41→15:20)
[2019-03-13] MEDS: dilTIAZem HCL 240 MG CAPCR PO SCH (09:41)
[2019-03-13] MEDS: ALPRAZolam 0.5 MG TABLET PO SCH (09:43)
[2019-03-13] MEDS: cefTRIAXone SODIUM 2,000 MG in DEXTROSE 5% 50 ML IV SCH (10:33)
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
[2019-03-13] MEDS ORDERED: dilTIAZem HCL 30 MG TAB PO ONE (14:30)
[2019-03-13] MEDS: RIVAROXABAN 15 MG TAB PO SCH (16:07)
[2019-03-13] MEDS: ACETAMINOPHEN 325 MG TAB PO PRN (17:44)
[2019-03-13] MEDS ORDERED: FUROSEMIDE 20 MG in SYRINGE 0 ML IV ONE (18:00)
[2019-03-14] MEDS: cefTRIAXone SODIUM 2,000 MG in DEXTROSE 5% 50 ML IV SCH ×3 (01:25→20:37)
[2019-03-14] MEDS: AMPICILLIN 2,000 MG in SODIUM CHLOR 0.9% AD-VAN 100 ML IV SCH ×4 (02:03→19:47)
[2019-03-14 06:31] LABS: Basophils # (auto) 0.01 K/uL (0-0.2); Basophils % (auto) 0.1 %; Eosinophils # (auto) 0.07 K/uL (0-0.5); Eosinophils % (auto) 0.8 %; Hematocrit (blood only) 33.6 % (37-47); Hemoglobin 10.8 g/dL (12.0-16.0); Immature Granulocytes # (auto) 0.03 K/uL (0.00-0.02); Immature Granulocytes % (auto) 0.3 %; Lymphocytes # (auto) 1.09 K/uL (1.2-3.4); Lymphocytes % (auto) 12.7 %; Mean Corpuscular Hgb Conc 32.1 g/dL (32-36); Mean Corpuscular Volume 83.8 fL (80-100); Monocytes # (auto) 0.54 K/uL (0.11-0.59); Monocytes % (auto) 6.3 %; Neutrophils # (auto) 6.86 K/uL (1.4-6.5); Neutrophils % (auto) 79.8 %; Platelet Count 197 K/uL (130-400); RDW Coefficient of Variation 16.2 % (11.5-14.5); RDW Standard Deviation 49.6 fL (36.4-46.3); Red Blood Count 4.01 M/uL (4.2-5.4)
[2019-03-14 06:58] LABS: BUN Creatinine Ratio 21.7 (10-20); Calcium 7.7 mg/dl (8.5-10.1); Creatinine Clr Calc Pharmacy 43.7 ml/min; Est GFR (African American) 88.2; Est GFR (Non-African American) 76.1; Potassium 3.2 mmol/L (3.5-5.1)
[2019-03-14] MEDS: ALBUT/IPRATROP 3MG/0.5MG NEB 3 ML VIAL NEB SCH ×2 (07:12→11:12)
[2019-03-14] MEDS ORDERED: POTASSIUM CHLORIDE 10 MEQ TABCR PO STA (08:01)
[2019-03-14 09:00] LABS: Ferritin 61.8 ng/ml (8-388)
[2019-03-14] MEDS: dilTIAZem HCL 240 MG CAPCR PO SCH (09:13)
[2019-03-14] MEDS: ALPRAZolam 0.5 MG TABLET PO SCH (09:15)
[2019-03-14] MEDS: TRAMADOL HCL 50 MG TABLET PO PRN (09:15)
[2019-03-14] MEDS ORDERED: COUGH DROP (SUGAR FREE) LOZ 24 LOZ/1 BOX BUCCAL ONE (09:57)
--- NOTE | 2019-03-14 10:10 | Infectious Disease Progress Nt ---
Date of Service March 14, 2019 Assessment & Plan (1) Infective endocarditis: pt remains with + cultures, now blood cultures ID as E. faecalis as well - flores sensitive. will continue current abx. with persistent + cultures while on appropriate abx I am concerned for her port as a source of ongoing infection, I feel she would benefit from removal. discussed with pt. I doubt urine is a sourse of infection, suspect urine culture is + due to high burden of bloodstream infection. UA negative, asymptomatic. Will continue abx and repeat cultures today but suspect she will need port removal. (2) Gram positive sepsis: (3) Discitis of multiple sites of spine: Subjective pt remains with + blood cultures, / cultures now + as well 1/2 sets growing gpc. Previous cultures growing E. faecalis, flores sensitive, placed on amp and high dose rocephin yesterday. tolerating well. remains afebrile. OOB to chair on my exam, no abd pain, no n/v/d, eating well. denies f/c. Denies cp, sob, cough. wbc 8.6. Has port, no pain, abx infusing through port. States she has this flushed every 6 weeks, can not remember when it was last flushed. no pain at port site. states she has not had any pain or dificulty with port since it was placed. all remaining ros reviwed and are negative Review of Systems Review of Systems: All systems reviewed & are unremarkable except as noted in HPI & below Physical Exam Constitutional: WD/WN, vitals as above Eyes: PERRL, conjunctivae normal, anicteric sclerae ENMT: external ear and nose normal, oropharynx normal Neck: normal visual inspection Respiratory: normal respiratory effort, lungs clear to auscultation no respiratory distress and no labored breathing Cardiovascular: Rate/Rhythm: regular rate and regular rhythm Heart Sounds: + murmur Gastrointestinal (Abdomen): normal bowel sounds, soft, nontender, no hepatosplenomegaly Musculoskeletal: no cyanosis or clubbing, extremities motor strength 5/5 Skin: + rash Trauma: + contusion port site c/d/i, no surroudning erythema, no edema, non tender, infusing without difficulty Psychiatric: A+Ox3, euthymic affect Insight: + poor insight Results & Data Vital Signs (Past 12 Hours) Vital Signs Temp Pulse Pulse Pulse Resp BP BP 03/14/19 07:40 36.3 C L 84 20 177/68 H 03/14/19 07:12 81 16 03/14/19 04:19 36.4 C L 75 22 03/14/19 01:14 36.7 C 74 20 152/84 H 03/14/19 00:14 36.7 C 73 18 148/64 H 03/14/19 00:00 03/13/19 23:59 75 03/13/19 23:45 36.4 C L 74 18 158/68 H 03/13/19 23:18 36.4 C L 75 18 147/70 H 03/13/19 22:45 36.9 C 85 18 157/63 H 03/13/19 22:30 36.4 C L 83 20 160/63 H 03/13/19 22:15 36.4 C L 88 18 164/66 H BP Pulse Ox Pulse Ox 03/14/19 07:40 92 03/14/19 07:12 93 03/14/19 04:19 169/73 H 94 03/14/19 01:14 99 03/14/19 00:14 99 03/14/19 00:00 96 03/13/19 23:59 03/13/19 23:45 99 03/13/19 23:18 99 03/13/19 22:45 98 03/13/19 22:30 03/13/19 22:15 99 Laboratory Results Microbiology 03/13/19 08:50 Blood Blood Culture - Preliminary Gram positive cocci 03/11/19 06:53 Blood Blood Culture - Preliminary Enterococcus faecalis 03/11/19 07:36 Blood Blood Culture - Preliminary Enterococcus faecalis 03/11/19 00:21 Urine,Random Urine Culture - Final Enterococcus faecalis 03/12/19 06:12 Blood Blood Culture - Preliminary Gram positive cocci in chains 03/10/19 12:11 Blood Blood Culture - Final Enterococcus faecalis 03/10/19 12:11 Blood Blood Culture - Final Enterococcus faecalis 03/12/19 06:28 Blood Blood Culture - Preliminary Gram positive cocci in chains
[2019-03-14] MEDS ORDERED: ALPRAZolam 0.5 MG TABLET PO PRN (11:05)
[2019-03-14] MEDS ORDERED: VANCOMYCIN TROUGH ONE (11:30)
--- NOTE | 2019-03-14 11:57 | Surgery Consultation ---
Date of Consultation March 14, 2019 Assessment & Plan (1) Gram positive sepsis: Will plan for port removal later today in OR by Dr. Dumas. History of Present Illness Attending Physician: Shahid Graves History of Present Illness 74 y/o female admitted 4 days ago for SOB/CHF, COPD now has had multiple blood cultures and a urine culture with enterococcus. She also has mitral and aortic vegetation and multi-level discitis. We were asked to remove her mediport. She is on Xarelto for A-fib and had breakfast around 7:30. Allergies Allergy/AdvReac Type Severity Reaction Status Date / Time No Known Allergies Allergy Verified 03/04/19 08:56 Home Medications Home Medications Medication Instructions Recorded Confirmed Type Xarelto 20 mg PO DAILY 12/14/18 03/10/19 History alprazolam 0.5 mg PO DAILY 12/14/18 03/10/19 History ascorbic acid (vitamin C) [Vitamin 500 mg PO DAILY 12/14/18 03/10/19 History C] benzonatate 100 mg PO TID PRN 12/14/18 03/10/19 History cholecalciferol (vitamin D3) 5,000 unit PO DAILY 12/14/18 03/10/19 History [Vitamin D3] diltiazem HCl 240 mg PO DAILY 12/14/18 03/10/19 History docusate sodium [Colace] 100 mg PO BID PRN 12/14/18 03/10/19 History echinacea 500 mg PO DAILY PRN 12/14/18 03/10/19 History Fluid Pill 1 dose PO DIRECTED 03/10/19 03/10/19 History acetaminophen 500 - 1,000 mg PO Q6H PRN 03/10/19 03/10/19 History tramadol 50 mg PO DAILY 03/10/19 03/10/19 History Patient History Medical History Arthritis (Chronic) Atrial fibrillation with RVR Lung cancer Surgical History S/P lobectomy of lung LLL, in 09/2017 Family History Father Hypertension Social History Preferred Language: Gabonese Communication Ability: Effective Visual Impairment: No Limitations Hearing Ability: Normal 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 Beliefs That Will Affect Care: None Current Living Situation: Alone Other Information That Helps Us Care for You: No Feels Safe at Home: Yes Safety Concerns: Feels Safe At This Time Smoking Status: Current every day smoker Tobacco Type: cigarettes Cigarettes Per Day: 10-20 Do You Dip or Chew Tobacco: No Second Hand Exposure: No Tobacco Cessation Education Requested by Patient: No Hx Alcohol Use: No Hx Substance Use: No Review of Systems Constitutional: no fever and no chills Physical Exam Constitutional: no acute distress Neck: left mediport accessed, no surrounding skin changes Results & Data Vital Signs (Past 12 Hours) Vital Signs Temp Pulse Pulse Pulse Resp BP BP 03/14/19 11:40 36.5 C 20 179/64 H 03/14/19 11:12 81 16 03/14/19 07:40 36.3 C L 84 20 177/68 H 03/14/19 07:12 81 16 03/14/19 04:19 36.4 C L 75 22 03/14/19 01:14 36.7 C 74 20 152/84 H 03/14/19 00:14 36.7 C 73 18 148/64 H 03/14/19 00:00 03/13/19 23:59 75 BP Pulse Ox Pulse Ox 03/14/19 11:40 92 03/14/19 11:12 95 03/14/19 07:40 92 03/14/19 07:12 93 03/14/19 04:19 169/73 H 94 03/14/19 01:14 99 03/14/19 00:14 99 03/14/19 00:00 96 03/13/19 23:59
--- NOTE | 2019-03-14 12:20 | CT Scan Report ---
CT SCAN OF THE ABDOMEN AND PELVIS WITHOUT IV CONTRAST CLINICAL HISTORY: Bacteremia. Endocarditis. COMPARISON STUDY: PET CT dated 09/14/2017. Chest CT dated 03/10/2019 and 12/14/2018. MRI of the lumbar spine dated 03/10/2019. TECHNIQUE: CT scan of the abdomen and pelvis is performed from the lung bases to the proximal femora. Images are reviewed in the axial, sagittal, and coronal planes. IV contrast was not administered for this examination as per the referring clinician. Note that the examination was performed in suboptim al fashion without oral and IV contrast. A dose lowering technique was utilized adhering to the princ iplangel of CHRIS. CT DOSE: 229.95 mGy.cm FINDINGS: Lung bases: The heart is mildly enlarged and without pericardial effusion. The coronary arteries are densely calcified. There is volume loss in the left lung. Advanced emphysema is noted. There are smal l pleural effusions with right bibasilar consolidation. Liver: The unenhanced liver is normal in size, contour, and attenuation. There is no intrahepatic dorothea iary ductal dilatation. Gallbladder: Unremarkable. Spleen: Normal in size and attenuation. Pancreas: The unenhanced pancreas is moderately atrophic and grossly unremarkable. Adrenal glands: Unremarkable. Kidneys: The unenhanced kidneys are normal in size and without hydronephrosis. There are no renal suzie culi identified. There is no evidence of contour deforming renal mass lesion. Abdominal vasculature: The abdominal aorta is normal in course and caliber noting advanced atheroscle rotic calcification. Bowel: There is moderate colonic fecal retention. No bowel obstruction is seen. The appendix is norm al as imaged. Peritoneum: There is no intraperitoneal free air or abdominal ascites. Lymphadenopathy: None. Pelvic viscera: The bladder is distended and contains intraluminal gas. The uterus and adnexa are nor mal as imaged. Skeletal structures: No the skeletal structures are osteopenic. There is endplate erosion/destruction with significant paravertebral edema identified at T11-T12 and L3-L4. The findings at T11-T12 are ne w from 12/14/2018. No lytic or blastic lesions are seen. IMPRESSION: 1. Again seen are findings of discitis/osteomyelitis at T11-T12 and L3-L4 with significant paraverteb ral edema. 2. Cardiomegaly and advanced emphysema. 3. There is gas within the bladder lumen. This is nonspecific and correlation with urinalysis is otilia mmended. 4. There are small pleural effusions with right basilar consolidation. Correlate clinically for evide nce of pneumonia/aspiration pneumonitis. 5. Additional findings as above. Electronically signed by: Abram Velez M.D. 03/14/2019 12:18 PM
[2019-03-14] MEDS ORDERED: fentaNYL citrate 100 MCG/2 ML VIAL ONE (15:26)
[2019-03-14] MEDS ORDERED: MIDAZOLAM HCL 1 MG/ML 2ML VIAL ONE (15:26)
[2019-03-14] MEDS ORDERED: LIDOCAINE HCL 2% 2 ML VIAL/AMP(20MG/ML) INFIL ONE (15:26)
[2019-03-14] MEDS ORDERED: PROPOFOL IV EMULSION 10 MG/ML 20 ML VIAL IV ONE (15:26)
--- NOTE | 2019-03-14 15:56 | Anesthesiology Consultation ---
Date of Service March 14, 2019 Assessment & Plan (1) Encounter for pre-operative examination: Chart Review Chart Review: Acceptable Risk for Surgery and Patient NOT seen in Pre Admission Testing Consults Requested none ASA ASA3 Proposed Anesthesia Anesthesia Type: MAC Risk / Benefits Reviewed With: PT / POA / Parent / Guardian, Accepts Plan and Informed Consent Obtained History Surgery Operation Date: 03/11/19 08:30 Proposed Procedures p Transesophageal Echo - Damian Hirsch MD Operation Date: 03/14/19 17:50 Proposed Procedures p Infusaport Removal - Wili Dumas MD, FACS Height/Weight Height: 4 ft 11 in Weight: 44.8 kg Allergies Allergy/AdvReac Type Severity Reaction Status Date / Time No Known Allergies Allergy Verified 03/04/19 08:56 Medications Home Medications Medication Instructions Recorded Confirmed Last Taken Xarelto 20 mg PO DAILY 12/14/18 03/10/19 Unknown alprazolam 0.5 mg PO DAILY 12/14/18 03/10/19 Unknown ascorbic acid (vitamin C) [Vitamin 500 mg PO DAILY 12/14/18 03/10/19 Unknown C] benzonatate 100 mg PO TID PRN 12/14/18 03/10/19 Unknown cholecalciferol (vitamin D3) 5,000 unit PO DAILY 12/14/18 03/10/19 Unknown [Vitamin D3] diltiazem HCl 240 mg PO DAILY 12/14/18 03/10/19 Unknown docusate sodium [Colace] 100 mg PO BID PRN 12/14/18 03/10/19 Unknown echinacea 500 mg PO DAILY PRN 12/14/18 03/10/19 Unknown Fluid Pill 1 dose PO DIRECTED 03/10/19 03/10/19 Unknown acetaminophen 500 - 1,000 mg PO Q6H PRN 03/10/19 03/10/19 Unknown tramadol 50 mg PO DAILY 03/10/19 03/10/19 Unknown Active Medications Generic Name Dose Route Start Last Admin Trade Name Freq PRN Reason Stop Dose Admin Acetaminophen 650 mg 03/10/19 01:43 03/13/19 17:44 Tylenol PO 04/09/19 01:42 650 mg Q4H PRN Administration Pain or Fever Alprazolam 0.5 mg 03/10/19 09:00 03/14/19 09:15 Xanax PO 04/09/19 08:59 0.5 mg DAILY SHARONA Administration Diltiazem HCl 240 mg 03/10/19 09:00 03/14/19 09:13 Cardizem Cd PO 04/09/19 08:59 240 mg DAILY SHARONA Administration Gadobutrol 4.5 ml 03/11/19 17:21 03/11/19 17:21 Gadavist 65ml IV 03/15/19 17:20 4.5 ml ONCE PRN Administration Interaction Checking Ampicillin Sodium 2,000 mg/ 100 mls @ 200 mls/hr 03/13/19 08:00 03/14/19 15:17 Sodium Chloride IV 04/24/19 07:59 Infused Q6H SHARONA Infusion Protocol Ceftriaxone Sodium 2,000 mg/ 70 mls @ 100 mls/hr 03/13/19 09:00 03/14/19 11:13 Dextrose IV 03/27/19 08:59 Infused Q12H SHARONA Infusion Protocol Miscellaneous 1 ea 03/11/19 21:00 03/13/19 20:14 Remove Nicoderm Patch N/A 04/10/19 20:59 Not Given HS SHARONA Rivaroxaban 15 mg 03/10/19 16:30 03/13/19 16:07 Xarelto PO 04/09/19 16:29 15 mg QDD SHARONA Administration Protocol Tramadol HCl 50 mg 03/11/19 15:35 03/14/19 09:15 Ultram PO 04/10/19 15:32 50 mg Q4H PRN Administration pain NPO Date Last Intake of Fluids: 03/14/19 Time Last Intake of Fluids: 07:30 Date Last Intake of Solids: 03/14/19 Time Last Intake of Solids: 07:30 Past Medical History Medical History Arthritis (Chronic) Atrial fibrillation with RVR Lung cancer COPD (chronic obstructive pulmonary disease) Mitral regurgitation Exercise / Class Metabolic Activity II 4-5 Yardwork/Stairs/Walk up hill Past Family History Family History Father Hypertension Past Surgical History Surgical History S/P lobectomy of lung LLL, in 09/2017 Past Anesthesia History No Hx of Anesthesia Complications and No Family Hx of Anesthesia Complications History of PONV No Hx of PONV, No Family Hx of PONV and No Hx of Motion Sickness Social History Smoking Status: Current every day smoker tobacco type: cigarettes Smoking cigarettes per day: 10-20 Do You Dip or Chew Tobacco: No Hx Alcohol Use: No Hx Substance Use: No Review of Systems no chest pain or sob Physical Exam Vital Signs Last Vital Signs Temp 36.6 C 03/14/19 15:27 Pulse 90 03/14/19 15:27 Resp 20 03/14/19 15:27 BP 177/74 H 03/14/19 15:27 Pulse Ox 92 03/14/19 15:27 ENMT Mouth: no TMJ abnormality Thyromental Distance: > or= 3.5 Finger Breadths Mallampati Class: II Neck normal visual inspection Respiratory normal respiratory effort Auscultation: + diminished lung sounds Cardiovascular Rate/Rhythm: regular rate and regular rhythm Neurologic moves all extremities Psychiatric Orientation: alert and oriented x 3 Testing Laboratory Results 03/14/19 05:38 03/14/19 05:38 Blood Type A Positive 03/13/19 08:50 Antibody Screen NEGATIVE 03/13/19 08:50 PT 13.5 Seconds (9.0-12.0) H 03/12/19 06:12 INR 1.3 (0.9-1.1) H 03/12/19 06:12 APTT 33.3 Seconds (21.0-31.0) H 03/12/19 06:12 Urine Color Yellow 03/11/19 00:21 Urine Appearance Cloudy (Clear) H 03/11/19 00:21 Urine pH 6.5 (4.5-7.5) 03/11/19 00:21 Ur Specific [place] 1.028 (1.000-1.030) 03/11/19 00:21 Urine Protein 2+ (Negative) H 03/11/19 00:21 Urine Glucose (UA) Negative (Negative) 03/11/19 00:21 Urine Ketones Negative (Negative) 03/11/19 00:21 Urine Nitrite Negative (Negative) 03/11/19 00:21 Ur Leukocyte Esterase Negative (Negative) 03/11/19 00:21 Urine WBC (Auto) 5-10 /hpf (0-5) H 03/11/19 00:21 Urine RBC (Auto) >30 /hpf (0-4) H 03/11/19 00:21 U Hyaline Cast (Auto) 1-5 /lpf (0-5) 03/11/19 00:21 U Epithel Cells (Auto) 20-30 /lpf (0-5) H 03/11/19 00:21 Urine Bacteria (Auto) 2+ (Negative) H 03/11/19 00:21 03/12/19 06:28 Blood Culture - Preliminary Blood Enterococcus faecalis 03/12/19 06:12 Blood Culture - Preliminary Blood Enterococcus faecalis 03/13/19 08:50 Blood Culture - Preliminary Blood Gram positive cocci 03/11/19 06:53 Blood Culture - Preliminary Blood Enterococcus faecalis 03/11/19 07:36 Blood Culture - Preliminary Blood Enterococcus faecalis 03/11/19 00:21 Urine Culture - Final Urine,Random Enterococcus faecalis 03/10/19 12:11 Blood Culture - Final Blood Enterococcus faecalis 03/10/19 12:11 Blood Culture - Final Blood Enterococcus faecalis
[2019-03-14] MEDS ORDERED: ePHEDrine sulfate 50 MG/ML AMP IV PRN (16:00)
[2019-03-14] MEDS ORDERED: LABETALOL HCL IV 5 MG/ML 20ML IV PRN (16:00)
[2019-03-14] MEDS ORDERED: ATROPINE SULFATE 0.1 MG/ML 10ML SYR IV PRN (16:00)
[2019-03-14] MEDS ORDERED: fentaNYL citrate 100 MCG/2 ML VIAL IV PRN (16:00)
[2019-03-14] MEDS ORDERED: PHENYLEPHRINE 100MCG/ML 5ML SYR IV PRN (16:00)
[2019-03-14] MEDS ORDERED: ONDANSETRON INJ 2 MG/ML 2 ML VIAL IV PRN (16:00)
[2019-03-14] MEDS ORDERED: BUPIVACAINE 0.5 % 5 MG/1 ML MPF 30ML VIAL ONE (16:16)
--- NOTE | 2019-03-14 16:28 | Consultation Report ---
DATE OF CONSULTATION: 03/14/2019 REASON FOR CONSULTATION: Unexplained worsening anemia in this 74-year-old female patient with history of stage IIB moderately differentiated adenocarcinoma of the lung. HISTORY OF PRESENT ILLNESS: The patient is a very pleasant 74-year-old female patient well known to the [facility], currently under Dr. Taylor's care for nonsmall cell lung cancer, admitted on 03/10/2019 with a syncopal episode and shortness of breath. Apparently, the patient had originally presented on the with progressive shortness of breath and orthopnea. She also admits to experiencing frequent falls and had 2 separate syncopal episodes in the preceding 2 weeks. During a previous fall, she had sustained a lumbar compression fracture. She had subsequently developed lower extremity edema and was placed on Lasix. The patient is on chronic anticoagulation and recently developed a progressive anemia and received 1 unit of packed RBCs 1 week prior to admission. She was subsequently scheduled for complete GI workup, which to my knowledge has not been performed. The patient denies hematochezia or melena of stools at present. She unfortunately is suffering from endocarditis with enterococcus growing in her blood stream at present. She is on broad spectrum antibiotics. Apparently peripheral smear was performed, which suggested possible underlying myelodysplasia. There is also suggestion of possible hemolysis; however, her reticulocyte count was only 3%. Her haptoglobin was also elevated which argues against an active hemolytic process. The patient is well known to [facility], currently under Dr. Taylor's care, diagnosed with stage IIB nonsmall cell lung cancer, EGFR positive, diagnosis was established in 07/2017. In 09/2017, underwent robotic assisted VATS, left lower lobectomy with lymph node sampling. She then received 4 cycles of consolidative chemotherapy. Her last visit with Dr. Taylor was on 10/28/2018 and he was planning to see her back in 6 months. On his last clinical note, he also suggested her anemia has been chronic and at that time was not of concern. PAST MEDICAL HISTORY: Significant for rheumatoid arthritis, chronic atrial fibrillation, nonsmall cell lung cancer. PAST SURGICAL HISTORY: Status post left lower lobectomy in 09/2017. MEDICATIONS: Prior to admission include Xarelto 20 mg p.o. daily, alprazolam 0.5 mg p.o. daily, vitamin C 500 mg p.o. daily, benzonatate 100 mg p.o. t.i.d. p.r.n., cholecalciferol 5000 units p.o. daily, diltiazem 240 mg p.o. daily, docusate sodium 100 mg p.o. b.i.d. p.r.n., echinacea 500 mg p.o. daily p.r.n., acetaminophen 500-1000 mg p.o. q. 6 hours p.r.n., tramadol 50 mg p.o. daily. ALLERGIES: No known drug allergies. SOCIAL HISTORY: The patient lives independently. She is a chronic pack a day smoker. Negative for alcohol. FAMILY HISTORY: Mother attributable to lung cancer. Father attributable to coronary artery disease and COPD as well as asbestosis. REVIEW OF SYSTEMS: CONSTITUTIONAL: The patient states her appetite has never been very good. She denies any over weight loss. Negative for fevers, chills or night sweats. SKIN: No rashes or lesions. No history of dermatoses. HEENT: Negative for headaches, lightheadedness or dizziness. No acute visual or hearing deficits. No sinus symptoms, sore throat or dysphagia. LYMPH: No history of lymphoproliferative disease. CARDIAC: She has history of atrial fibrillation. No current angina or palpitations. PULMONARY: Positive for lung cancer. Positive for COPD. She is not acutely short of breath. She did report dyspnea on exertion and orthopnea prior to admission. Positive for chronic nonproductive cough. GASTROINTESTINAL: Negative for abdominal pain, nausea, vomiting, diarrhea or constipation. No hematochezia, melena or kasi rectal bleeding. GENITOURINARY: No hematuria, dysuria, urinary incontinence. PSYCHIATRIC: Positive for anxiety. ENDOCRINE: Negative for diabetes or thyroid disease. NEUROLOGIC: Negative for seizure, stroke or migraine headache. Positive for 2 syncopal episodes, however. HEMATOLOGIC: Positive for chronic anemia. MUSCULOSKELETAL: No arthralgias or myalgias. Recent compression fracture of the lumbar spine. PHYSICAL EXAMINATION: GENERAL: Very pleasant, anxious 74-year-old female patient, in no acute distress. VITAL SIGNS: Temperature 36.3, pulse 84, respiratory rate 20, blood pressure 177/68. SKIN: Warm, dry, noncyanotic without petechia, rash or ecchymosis. HEENT: Head atraumatic, normocephalic. Eyes: PERRLA, EOMI. Sclerae nonicteric. Nares patent without rhinorrhea or discharge. Throat is clear. Tongue is midline. Mucous membranes are moist. No buccal lesions or ulcerations. NECK: Supple. Trachea midline. LYMPH: No cervical, supraclavicular or axillary palpable nodes. HEART: Regular rate and rhythm. No clicks, rubs, murmurs or gallops. LUNGS: Clear to auscultation bilaterally. ABDOMEN: Soft, nontender, nondistended without palpable hepatosplenomegaly. EXTREMITIES: Musculoskeletal strength and pulses are equal in all 4 quadrants. No clubbing, cyanosis or edema otherwise. NEUROLOGIC: The patient is awake, alert and oriented x3. Cranial nerves are grossly intact. LABORATORY DATA: WBC count 8600, hemoglobin 10.8, platelet count 197,000. Sodium 137, potassium 3.2, chloride 105, carbon dioxide 26, creatinine 0.77, BUN 17. I just ordered elements including iron, ferritin, TIBC, B12 and folate as well as a screening SPEP. LDH is normal at 191. IMPRESSION: 1. Syncope x2. 2. Endocarditis. 3. Enterococcus bacteremia. 4. Nonsmall cell lung cancer stage IIB. 5. Anemia, normocytic normochromic. PLAN: I have been asked to evaluate the patient this morning. She has been under Dr. Taylor's care with nonsmall cell lung cancer since 2017, status post left lower lobectomy and consolidation chemotherapy. Her tumor is EGFR positive. There has been no radiographic evidence of disease recurrence including recent scans done prior to admission. Apparently, she has dropped her hemoglobin precipitously. Dr. Taylor made a note of her chronic anemia and by current documentation, her hemoglobin hovers around 10 g/dL regularly. Apparently, she has required transfusional support on occasion in the last couple of weeks. I did not see elemental studies in this admission and therefore took the liberty of repeating iron, B12 and folate as well as a screening SPEP. I think the likelihood that the patient suffers MDS is quite low. Additionally, none of the hemolysis parameters suggest an active hemolysis. She was on anticoagulation and bleeding needs to be ruled out. Dr. Taylor plans to see her I believe in March. He will start on service this week. Agree with medical management otherwise and have nothing further to add at this juncture. Thank you for allowing us to participate in her care. Again, I will notify Dr. Taylor of her admission. NAMAN
--- NOTE | 2019-03-14 16:30 | Operative Report ---
Post Operative Report Pre & Post Diagnosis Operation Date: 03/11/19 08:30 Pre-Op Diagnosis: SHORTNESS OF BREATH Post-Op Diagnosis: SHORTNESS OF BREATH infected port Operation Date: 03/14/19 17:50 <No data on this case meets the specified criteria> Procedure Operation Date: 03/11/19 08:30 Actual Procedures p Transesophageal Echo(Not Applicable) - Damian Hirsch MD Operation Date: 03/14/19 17:50 <No data on this case meets the specified criteria> port removal Surgeon Wili Dumas MD, FACS Textile Engineer none Estimated Blood Loss 0 Findings Consistent with Post-Op Diagnosis Specimens port, cath tip for culture Description of Procedure see dictation I attest to the content of the Intraoperative Record and any orders documented therein. Any exceptions are noted below.
--- NOTE | 2019-03-14 16:35 | Operative Report ---
Post Operative Report Pre & Post Diagnosis Operation Date: 03/11/19 08:30 Pre-Op Diagnosis: SHORTNESS OF BREATH Post-Op Diagnosis: SHORTNESS OF BREATH Operation Date: 03/14/19 17:50 <No data on this case meets the specified criteria> Procedure Operation Date: 03/11/19 08:30 Actual Procedures p Transesophageal Echo(Not Applicable) - Damian Hirsch MD Operation Date: 03/14/19 17:50 <No data on this case meets the specified criteria> Patient was brought in the operating room placed on the table in the supine posi tion she was given appropriate sedation her left upper chest was prepped and draped in usual fashion. Her skin and subcutaneous tissue were anesthetized with 1/2% plain Marcaine and then incision made through the prior scar. The port was dissected away from the pocket seem to be well incorporated. The catheter was removed and the tunnel oversewn with 2-0 chromic suture. Catheter tip did have a clot. The tip was sent for culture. Deep tissue was reapproximated using 2 oh plain suture and the skin reapproximated using running 4-0 nylon suture. Dressing applied patient transferred to recovery room in stable condition. Surgeon Wili Dumas MD, FACS Instructor Warper none Estimated Blood Loss 0 Findings Consistent with Post-Op Diagnosis Specimens port, cath tip Description of Procedure see operation I attest to the content of the Intraoperative Record and any orders documented therein. Any exceptions are noted below.
--- NOTE | 2019-03-14 17:03 | Anesthesiology Progress Note ---
Date of Service March 14, 2019 Anesthesia Post Procedure Vital Signs Vital Signs: Temp Pulse Pulse Pulse Resp BP BP 03/14/19 16:55 36.4 C L 209 H 19 03/14/19 16:45 97 H 21 03/14/19 16:36 37.3 C 91 H 18 03/14/19 15:27 36.6 C 90 20 03/14/19 12:42 36.5 C 82 18 179/64 H 03/14/19 11:40 36.5 C 20 179/64 H 03/14/19 11:12 81 16 03/14/19 07:40 36.3 C L 84 20 177/68 H 03/14/19 07:12 81 16 03/14/19 04:19 36.4 C L 75 22 03/14/19 01:14 36.7 C 74 20 152/84 H 03/14/19 00:14 36.7 C 73 18 148/64 H 03/14/19 00:00 03/13/19 23:59 75 03/13/19 23:45 36.4 C L 74 18 158/68 H 03/13/19 23:18 36.4 C L 75 18 147/70 H 03/13/19 22:45 36.9 C 85 18 157/63 H 03/13/19 22:30 36.4 C L 83 20 160/63 H 03/13/19 22:15 36.4 C L 88 18 164/66 H 03/13/19 21:55 36.8 C 95 H 20 164/66 H 03/13/19 21:40 36.8 C 86 20 148/64 H 03/13/19 20:40 36.6 C 91 H 20 146/68 H 03/13/19 20:10 37.2 C 95 H 20 155/65 H 03/13/19 19:50 37.2 C 94 H 18 158/66 H 03/13/19 19:25 36.9 C 98 H 20 163/71 H 03/13/19 19:18 36.6 C 93 H 16 03/13/19 19:10 36.9 C 78 20 155/63 H 03/13/19 19:02 95 H 16 03/13/19 18:51 36.7 C 94 H 22 153/71 H BP Pulse Ox Pulse Ox 03/14/19 16:55 168/74 H 94 04/29/19 16:45 164/63 H 95 03/14/19 16:36 117/77 98 03/14/19 15:27 177/74 H 92 03/14/19 12:42 92 03/14/19 11:40 92 03/14/19 11:12 95 03/14/19 07:40 92 03/14/19 07:12 93 03/14/19 04:19 169/73 H 94 03/14/19 01:14 99 03/14/19 00:14 99 03/14/19 00:00 96 03/13/19 23:59 03/13/19 23:45 99 03/13/19 23:18 99 03/13/19 22:45 98 03/13/19 22:30 03/13/19 22:15 99 03/13/19 21:55 03/13/19 21:40 03/13/19 20:40 03/13/19 20:10 03/13/19 19:50 99 03/13/19 19:25 03/13/19 19:18 157/64 H 100 03/13/19 19:10 99 03/13/19 19:02 99 03/13/19 18:51 92 Pain Intensity Back: Pain Intensity: 2 Transfer of Care Handoff Completed per policy Notes Mental Status: alert / awake / arousable and participated in evaluation Nausea / Vomiting: adequately controlled Pain: adequately controlled Airway Patency, RR, SpO2: stable & adequate BP & HR: stable & adequate Hydration State: stable & adequate Anesthetic Complications: no major complications apparent and Pt Satisfied with anesthetic care
[2019-03-14] MEDS ORDERED: MoRPHine SULFATE 2 MG/ML CARP IV PRN (17:21)
[2019-03-14] MEDS: RIVAROXABAN 15 MG TAB PO SCH (17:23)
--- NOTE | 2019-03-14 17:45 | Hospitalist Progress Note ---
Date of Service March 14, 2019 Assessment & Plan (1) Infective endocarditis: MV and AV. Fortunately valve function is relatively intact. LV function preserved. Pathogen undoubtedly is enterococcus. Source for septicemia/endocarditis - port infection?? UTI also possible but much less likely. All cultures to date including blood cx's from 03/13 are positive. Agree with ID that port should be removed. I have consulted Dr. Dumas from general surgery who will remove the port TODAY. Cultures repeated today. And may need repeat cultures tomorrow. If repeat cultures are negative hopefully she can be treated with IV amp and rocephin x 6 weeks. Appreciate ID consultation. Present on Admission?: Yes (2) Septicemia due to enterococcus: see above in "infective endocarditis." continue daily blood cultures until they are negative. Present on Admission?: Yes (3) Discitis of multiple sites of spine: T11-T12 L3-L4 seen by orthopedics spine - no surgical intervention at this time. continue IV antibiotic therapy. pain control. (4) COPD (chronic obstructive pulmonary disease): Cont nebs prn. Desperately needs to quit smoking. Has prior h/o left-sided lung cancer s/p resection. Present on Admission?: Yes (5) Current smoker: offered nicoderm patch - declined. counseled to quit. Present on Admission?: Yes (6) Anemia: Fe studies, b12, folate - wnl. anemia of chronic disease? acute anemia due to infective endocarditis? follow. Present on Admission?: Yes (7) Chronic kidney disease, stage 3a: creatinine stable today. BMP in am for stability. (8) Dyspnea: multifactorial - likely due to COPD, infective endocarditis, and previous episode of mucous plugging. the dyspnea got so severe earlier this stay that she had respiratory distress from such. ?acute diastolic CHF as well. either way -- dyspnea is resolved. (9) Atrial fibrillation: PAF - on chronic xarelto. NSR on monitoring. (10) Rheumatoid arthritis: quiescent at this time. not on disease modifying agents. (11) Psoas abscess, left: very small, about 1cm, treat with IV abx therapy. (12) Left flank pain: will obtain CT abd/pelvis to r/o obstructing stone, septic emboli, etc. if negative then this is likely referred pain from the discitis. (13) DVT prophylaxis: xarelto Subjective patient very anxious, teary-eyed during the visit. over and over she asked "why did I get this?" her main complaint is that of left paraspinal back pain and left flank pain. heat does help this. denies fever/chills. denies pain over port site. tele stable overnight. Review of Systems Constitutional: + anorexia; no fever and no chills Respiratory: + cough and + dyspnea Cardiovascular: no chest pain Gastrointestinal: no abdominal pain, no nausea and no vomiting Physical Exam Constitutional: + thin; no acute distress ENMT: external ear and nose normal, oropharynx normal Respiratory: normal respiratory effort, lungs clear to auscultation Auscultation: + diminished lung sounds (bases) Cardiovascular: Rate/Rhythm: regular rate and regular rhythm Heart Sounds: normal S1, normal S2 and + murmur (1/6 LSB) Vessels: posterior tibial pulses present and dorsalis pedis pulses present; no JVD Gastrointestinal (Abdomen): normal bowel sounds, soft, nontender, no hepatosplenomegaly Musculoskeletal: tender to palpation over l-spine and left flank in expected location of left kidney Skin: janeway lesion right thumb Neurologic: no focal motor deficits Psychiatric: Orientation: alert and oriented x 3 Mood: + depressed mood and + anxious mood Results & Data Vital Signs (Past 12 Hours) Vital Signs Temp Pulse Pulse Resp BP BP Pulse Ox 03/14/19 17:25 96 H 16 163/61 H 97 03/14/19 17:15 36.6 C 88 16 163/65 H 97 03/14/19 16:55 36.4 C L 209 H 19 168/74 H 94 03/14/19 16:45 97 H 21 164/63 H 95 03/14/19 16:36 37.3 C 91 H 18 117/77 98 03/14/19 15:27 36.6 C 90 20 177/74 H 92 03/14/19 12:42 36.5 C 82 18 179/64 H 92 03/14/19 11:40 36.5 C 20 179/64 H 92 03/14/19 11:12 81 16 95 03/14/19 07:40 36.3 C L 84 20 177/68 H 92 03/14/19 07:12 81 16 93 Laboratory Results Laboratory Results - last 24 hr 03/13/19 03/14/19 03/14/19 08:50 05:38 05:38 WBC 8.60 RBC 4.01 L Hgb 10.8 L D Hct 33.6 L MCV 83.8 MCH 26.9 MCHC 32.1 RDW Std Deviation 49.6 H RDW Coeff of Jose 16.2 H Plt Count 197 MPV 9.0 Immature Gran % (Auto) 0.3 Neut % (Auto) 79.8 Lymph % (Auto) 12.7 [place] % (Auto) 6.3 Eos % (Auto) 0.8 Baso % (Auto) 0.1 Immature Gran # (Auto) 0.03 H Neut # (Auto) 6.86 H Lymph # (Auto) 1.09 L [place] # (Auto) 0.54 Eos # (Auto) 0.07 Baso # (Auto) 0.01 Sodium 137 Potassium 3.2 L D Chloride 105 Carbon Dioxide 26 Anion Gap 6.0 BUN 17 Creatinine 0.77 Est Cr Clr Drug Dosing 43.7 Est GFR ( Amer) 88.2 Est GFR (Non-Af Amer) 76.1 BUN/Creatinine Ratio 21.7 H Glucose 79 Calcium 7.7 L Magnesium 2.0 Iron TIBC Ferritin Folate Blood Type A Positive Antibody Screen NEGATIVE Crossmatch See Detail 03/14/19 03/14/19 08:13 08:13 WBC RBC Hgb Hct MCV MCH MCHC RDW Std Deviation RDW Coeff of Jose Plt Count MPV Immature Gran % (Auto) Neut % (Auto) Lymph % (Auto) [place] % (Auto) Eos % (Auto) Baso % (Auto) Immature Gran # (Auto) Neut # (Auto) Lymph # (Auto) [place] # (Auto) Eos # (Auto) Baso # (Auto) Sodium Potassium Chloride Carbon Dioxide Anion Gap BUN Creatinine Est Cr Clr Drug Dosing Est GFR ( Amer) Est GFR (Non-Af Amer) BUN/Creatinine Ratio Glucose Calcium Magnesium Iron 31 L TIBC 202 L Ferritin 61.8 Folate 6.86 Blood Type Antibody Screen Crossmatch (1) Infective endocarditis Infective endocarditis organism: bacterial Chronicity: acute Qualified Code(s): I33.0 - Acute and subacute infective endocarditis (2) COPD (chronic obstructive pulmonary disease) COPD type: unspecified COPD Qualified Code(s): J44.9 - Chronic obstructive pulmonary disease, unspecified (3) Anemia Anemia type: iron deficiency Iron deficiency anemia type: unspecified iron deficiency Qualified Code(s): D50.9 - Iron deficiency anemia, unspecified (4) Dyspnea Dyspnea type: unspecified Qualified Code(s): R06.00 - Dyspnea, unspecified (5) Atrial fibrillation Atrial fibrillation type: unspecified Qualified Code(s): I48.91 - Unspecified atrial fibrillation (6) Rheumatoid arthritis Rheumatoid arthritis location: unspecified site Rheumatoid factor presence: unspecified presence Qualified Code(s): M06.9 - Rheumatoid arthritis, unspecified
--- NOTE | 2019-03-14 17:46 | Cardiology Progress Note ---
Date of Service March 14, 2019 Assessment & Plan (1) Dyspnea: This appears to be improved. Possibly related to an element of pulmonary vascular congestion. Well compensated currently. 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 She is persistently positive blood cultures. She had her port removed today in the hopes that this represented a source. She is also known to have diskitis and a psoas abscess. One concern of course would be persistent bacteremia due to her valvular vegetations. If she continues to have persistent bacteremia despite removal of her port, attention would need to be given to other sources and in evaluation by CT surgery could be entertained. However, this is quite a large endeavor and would carry significant morbidity. (3) Atrial fibrillation: She has not had evidence of recurrent atrial arrhythmias since her discharge after surgery. She was seen on an outpatient basis and again had no definite recurrence of atrial fibrillation. Still at risk of recurrent arrhythmias given her comorbidities. Will keep her on telemetry this time. (4) Syncope: We can continue telemetry monitoring. It seems unlikely given the normal brain MRI that her endocarditis played any role in the syncope. Subjective Patient reports some discomfort in her back when lying in bed. She feels better sitting up. She is somewhat frustrated at her inability to walk on supervised. She is also frustrated about her overall clinical condition. She did not report significant breathing trouble today. No symptoms of chest discomfort. Review of Systems Review of Systems: Per HPI Physical Exam Physical Exam: She is alert and oriented x3. Mood affect appear normal. She answered all questions appropriately. HEENT: Sclerae are anicteric. Pupils are equal and reactive to light and accommodation. Extraocular movements were intact. Neuro: Cranial nerves intact Lungs: Lungs are clear to auscultation bilaterally. There are no rales wheezes or rhonchi. She has normal respiratory effort without use of accessory muscles. There is normal pulmonary excursion. Cardiac: The rhythm was regular. S1 and S2 were normal. Soft holosystolic. The PMI was not markedly displaced on palpation. Abdomen: The abdomen was soft and nontender. Extremities: Patient has bilateral radial pulses that are equal in intensity. There is no evidence cyanosis or clubbing. Results & Data Vital Signs (Past 12 Hours) Vital Signs Temp Pulse Pulse Resp BP BP Pulse Ox 03/14/19 17:25 96 H 16 163/61 H 97 03/14/19 17:15 36.6 C 88 16 163/65 H 97 03/14/19 16:55 36.4 C L 209 H 19 168/74 H 94 03/14/19 16:45 97 H 21 164/63 H 95 03/14/19 16:36 37.3 C 91 H 18 117/77 98 03/14/19 15:27 36.6 C 90 20 177/74 H 92 03/14/19 12:42 36.5 C 82 18 179/64 H 92 03/14/19 11:40 36.5 C 20 179/64 H 92 03/14/19 11:12 81 16 95 03/14/19 07:40 36.3 C L 84 20 177/68 H 92 03/14/19 07:12 81 16 93 (1) Dyspnea Dyspnea type: unspecified Qualified Code(s): R06.00 - Dyspnea, unspecified (2) Atrial fibrillation Atrial fibrillation type: unspecified Qualified Code(s): I48.91 - Unspecified atrial fibrillation
--- OUTSIDE RECORDS SUMMARY | 2019-03-14 20:53 | External Medical Summary | Continuity of Care Document ---
:1945 Author Name Natalia Malave, Provider Address Unavailable Unavailable , Care Team Providers Name Role Phone Abdirizak Malave, Cornell [email or web address] Olayinka Malave, Izabel Unavailable [email or web address] [place] EVANGELISTA, Tete Unavailable [email or web address] Torrey Malave, Kyle Unavailable [email or web address] [email or web address] Martini PA-C, Winsome Lacy Unavailable [email or web address] JOE REYNOLDS M.D., CORNELL Mcmillan Unavailable Un available Unavailable Unavailable Unavailable Problems High risk medication use (V58.69) (Z79.899) Rheumatoid arthritis (714.0) (M06.9) Hyponatremia (276.1) (E87.1) Osteopenia (733.90) (M85.80) Hyperlipidemia (272.4) (E78.5) Chronic obstructive pulmonary disease (496) (J44.9) Tobacco use (305.1) (Z72.0) Statin intolerance (995.27) (Z78.9) Port-A-Cath in place (V45.89) (Z95.828) Olecranon bursitis (726.33) (M70.20) Flu vaccine need (V04.81) (Z23) Non-small cell carcinoma of lung (162.9) (C34.90) Vitamin D deficiency (268.9) (E55.9) Oral candidiasis (112.0) (B37.0) Immunodeficiency (279.3) (D84.9) Collapse of left lung (518.0) (J98.11) Venous insufficiency of lower extremity (459.81) (I87.2) AF (paroxysmal atrial fibrillation) (427.31) (I48.0) Anxiety (300.00) (F41.9) Pleural effusion (511.9) (J90) Hypertension (401.9) (I10) Adenocarcinoma of left lung (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 Frieda Bhagat udy Start: 20-Aug-2012 Quantity: 90 Refills: 3 Macular Health Formula Oral Capsule; TAKE 1 CAPSULE Daily Start: 28-Sep-2017 Refills: 0 dilTIAZem HCl ER Coated Beads 240 MG Ora l Capsule Extended Release 24 Hour; TAKE 1 CAPSULE Daily Frieda Reveles Start: 12-Jan-2018 Quantity: 30 Ralitsa Refills: 1 Acetaminophen 325 MG Oral Tablet; TAKE 1 TO 2 TABLETS EVERY 4 TO 6 HOURS NEEDED Refills: 0 Magnesium 400 MG Oral Tablet; Take 1 tablet daily Start: 16-Dec-2018 Refills: 0 Furosemide 20 MG Oral Tablet; TAKE 1 TABLET DAILY N EEDED. JEAN CARLOS Osborne Tia Start: 07-Mar-2019 Quantity: 3 Refills: 0 Docusate Sodium 100 MG Oral Capsule; TAKE 1 CAPSULE Twice da michael PRN Start: 28-Sep-2017 Refills: 0 Xarelto 20 MG Oral Tablet; Take 1 tablet daily Frieda Hirsch Start: 17-Aug-2017 Quantity: 90 Refills: 3 Biotin 1000 MCG Oral Tablet; Take 1 tablet daily Refills: 0 Lidocaine-Transparent Dressing 4 % External Kit; USE DIRE CTED. Start: 01-Mar-2019 Refills: 0 Ferrous Sulfate 325 (65 Fe) MG Oral Tablet; Take 1 tablet tw ice daily Start: 16-Dec-2018 Refills: 0 TENS Therapy Pain Relief Device; USE DIRECTED. Joe Anthony M.D. Start: 07-Mar-2019 Quantity: 1 Ralitsa Refills: 0 traMADol HCl - 50 MG Oral Tablet; TAKE 1 TABLET 1 TIME DAILY NEEDED for severe pain JEAN CARLOS Osborne Tia Start: 03-Mar-2019 Quantity: 30 Refills: 0 Echinacea 500 MG Oral Capsule; TAKE 1 TA BLET BY MOUTH ONCE A DAY NEEDED FOR COLD Start: 17-Dec-2017 Refills: 0 Vitamin C 500 MG Oral Tablet; TAKE 1 TABLET DAILY. Start: 17-Dec-2017 Refills: 0 Procedures Complete Echo Doppler Date: 18-Feb-2019 (Echocardiogram) CT (Chest) Thorax w/o Contrast Date: 23-Feb-2019 History of Cataract Surgery Status: Comp leted History of Dilation And Curettage Status : Completed History of thoracentesis Status: Complet ed History of venous access port Status: Co mpleted 19-Oct-2017 0:00 placement Immunizations Pneumococcal polysaccharide vaccine, 23 valent On: 12-Jan-20 12 0:00 Lot #: [id number], [employer] Zostavax [id number] UNT/0.65ML Subcutaneous Solution Reconstitute d On: 29-Jan-2012 Fluzone INJ On: 02-Sep-2012 9:55 Lot #: [id number], SANOFI PASTEUR Influenza On: 29-Aug-2013 14:46 Lot #: [id number], SANOFI PASTEUR Fluzone High-Dose Intramuscular Suspension On: 08-Aug-2014 8 :51 Lot #: [id number], SANOFI PASTEUR Pneumo (Prevnar) On: 19-Sep-2014 10:47 Lot #: [id number], PFIZER [place]. Influenza On: 09-Aug-2015 Lot #: [id number], SANOFI PASTEUR Fluzone High-Dose 0.5 ML Intramuscular Suspension Pref illed Syringe On: 30-Aug-2016 8:51 Lot #: [id number], SANOFI PASTEUR Fluzone High-Dose 0.5 ML Intramuscular Suspension Pref illed Syringe On: 15-Sep-2017 8:25 Lot #: [id number], SANOFI PASTEUR Family History Mother Family history of Atrial Fibrillation Status: Active Family history of Hypertension (V17.49) Status: Active Family history of Thyroid Disorder (V18.19) Status: Active Father Family history of Chronic Obstructive Pulmonary Disease Stat us: Active Family history of Hypertension (V17.49) Status: Active Family history of Congestive Heart Failure Status: Active Brother Family history of Coronary Artery Disease (V17.49) Status: A ctive Family history of Hypertension (V17.49) Status: Active Social History - Smoking Status Smoker. current status unknown Plan of Treatment Planned Encounters Appointment; Kyle Hirsch M.D. Start: 10-May-2019 10 :15 Request Planned Observations Planned Goals not documented Results X-ray Lumbar spine, 4 Laboratory: [facility] Diagnostic Views Routine Imaging [address] [place] 14-Feb-2019 10:26 L-SPINE MIN 4 VIEWS ROUTINE [facility] [place] [phone] XRay Report Patient: ROSEMARIE BARAKAT Admit Date: MR#: [id number] Address1: [address] [place] [address] Acct ID:[id number] Address2: Date: 1945 [facility] [address] Age: 73 Location: [facility] Sex: F Room/Bed: Att Phy: RV. Reveles MD Diagn osis: I48.92,R55 Soraida Phy: RV. Reveles MD Servi ce Date: 02/14/19 Fam Phy: Interpreting Phy: Yuri Delong MD Admit Phy: Ordering Phy: Winsome Martini PA-C cc: XR lumbar spine min 4V routine CLINICAL HISTORY: 73 years-old Female presenting with Syncope and collapse, lower back and tailbonepain, fall off of office chair. TECHNIQUE: Frontal, bilateral oblique, lateral, and cone-down lateral view of the lumbar spine wereobtained. COMPARISON: 06/24/2016. FINDINGS: Mild dextroscoliosis of the lumbar spine centered at L3-4 unchanged in severity from prior exam. Due to the presence of scoliosis, evaluation of vertebral body height is mildly limited. Allowing for this, vertebral bodies maintain normal height and alignment otherwise. Multilevel intervertebraldisc height loss, which is eccentric due to scoliosis. Vacuum disc phenomenon and endplate sclerosissuggested at L3-4. Multilevel osteophytosis. No compression deformity or subluxation. Osseous neuralforaminal narrowing may be present at L3-4 and L5-S1. Oblique views are limited due to scoliosis. Atherosclerosis noted. Nonobstructive bowel gas pattern. Partially visualized tip of a central venous catheter. Right lung base suggests hyperinflation. Left lung base may suggest presence of a pleural effusion.. IMPRESSION: 1. Allowing for scoliosis, no convincing radiographic evidence of acute osseous injury. 2. Scoliosis and multilevel degenerative changes with possible neural foraminal narrowing. 3. Possible left pleural effusion. Electronically signed by: Yuri Delong M.D. 02/14/2019 10:30 AM Dictated: 02/14/19 1026 Transcribed: 02/14/19 1026 CBC With DIFF Laboratory: [facility] Laboratory [address] [facility] [address] tel: 14-Feb-2019 9:50 WBC 10.33 K/uL Range: 4.8-10.8 K/u L RBC 3.37 {M/uL} (below low Range: 4.2-5 .4 M/uL threshold) HEMOGLOBIN 8.2 g/dL (below low Range: 1 2.0-16.0 g/dL threshold) HEMATOCRIT 27.7 % (below low Range: 37- 47 % threshold) MCV 82.2 fL Range: 80-100 fL MCH 24.3 pg (below low Range: 25-34 pg threshold) MEAN CORPUSCULAR HGB CONC 29.6 Range: 3 2-36 g/dL g/dL (below low threshold) RED CELL DISTRIBUTION WIDTH SD Range: 3 6.4-46.3 fL 52.3 fL (above high threshold) RED CELL DISTRIBUTION WIDTH CV Range: 1 1.5-14.5 % 17.4 % (above high threshold) PLATELET COUNT 310 K/uL Range: 130-400 K/uL MEAN PLATELET VOLUME 9.4 fL Range: 7.4- 10.4 fL NEUT % 82.2 % Range: % LYMPH % 9.4 % Range: % MONO % 7.9 % Range: % EOS % 0.1 % Range: % BASO % 0.2 % Range: % IG% 0.2 % Range: % Comments: IG paramet er reflects the combination of Metas, Myelos andPromyelocytes. Neutrophils (Auto) 8.49 K/uL Range: 1. 4-6.5 K/uL (above high threshold) LYMPH ABS # 0.97 K/uL (below low Range: 1.2-3.4 K/uL threshold) MONO ABS # 0.82 K/uL (above high Range: 0.11-0.59 K/uL threshold) EOS ABS # 0.01 K/uL Range: 0-0.5 K/uL BASO ABS # 0.02 K/uL Range: 0-0.2 K/uL IG# 0.02 K/uL Range: 0.00-0.02 K/ uL HYPOCHROMIA Present Comp Metabolic Panel Laboratory: [facility] Laboratory [address] [facility] [address] tel: 14-Feb-2019 9:50 SODIUM 134 mmol/L (below low Range: 136 -145 mmol/L threshold) POTASSIUM 3.3 mmol/L (below low Range: 3.5-5.1 mmol/L threshold) CHLORIDE 101 mmol/L Range: 98-107 mmol/ L CARBON DIOXIDE 23 mmol/L Range: 21-32 m mol/L ANION GAP 10.0 Range: 3-11 BLOOD UREA NITROGEN 13 mg/dl Range: 7-1 8 mg/dl CREATININE 0.93 mg/dl Range: 0.6-1.2 mg /dl Estimated GFR () Comment s: Units: ml/min per 70.7 1.73 meters squaredT he estimated GFR (CKD-E PI equation) has not be en validatedfor inpatie nt settings and may not be an accurate reflectiono f renal function in critical ly ill patients or those wi thrapidly changing renal funct ion (e.g. LILA). Estimated GFR (Non- Comments: Uni ts: ml/min per [place]) 61.0 1.73 meters squaredT he estimated GFR (CKD-E PI equation) has not be en validatedfor inpatie nt settings and may not be an accurate reflectiono f renal function in critical ly ill patients or those wi thrapidly changing renal funct ion (e.g. LILA). BUN/CREATININE RATIO 14.2 Range: 10-20 GLUCOSE 114 mg/dl (above high Range: 70 -99 mg/dl threshold) CALCIUM 8.8 mg/dl Range: 8.5-10.1 mg/ dl Bilirubin, Total 0.4 mg/dl Range: 0.2-1 mg/dl AST/SGOT 12 U/L (below low Range: 15-37 U/L threshold) ALT/SGPT 10 U/L (below low Range: 12-78 U/L threshold) TOTAL PROTEIN 8.0 {gm/dl} Range: 6.4-8. 2 gm/dl ALBUMIN 2.5 {gm/dl} (below low Range: 3 .4-5.0 gm/dl threshold) GLOBULIN 5.5 {gm/dl} (above high Range: 2.5-4.0 gm/dl threshold) ALB/GLOB RATIO 0.5 (below low Range: 0. 9-2 threshold) ALKALINE PHOSPHATASE 87 U/L Range: 45-1 17 U/L TSH With Reflex to T4 Laboratory: [facility] Laboratory [address] [facility] [address] tel: 14-Feb-2019 9:50 TSH 1.940 {uIu/ml} Range: 0.300-4.500 uIu/ml Comments: The refere nce range for TSH is 0.3-4.5 uIU/ml.Some have suggested that TSH levels >2.5 uIU/ml should beconsidered abnormal, particularly in potentially symptomaticyounger individuals.TSH levels in he althy elderly (>75 y ears of age) are oftenat or even above the reference range.Normal first trimester TSH <2.0 uIU/ml.Normal second and third trimester TSH <3.0 uIU/ml.TSH 0.5-2.0 uIU/ml is oft en considered the op timaltherapeutic target for replacement treatment ofhypothyroidism. Iron and Transferrin Laboratory: [facility] Laboratory [address] [facility] [address] tel: 16-Feb-2019 11:20 Iron 19 {mcg/dl} (below low Range: 35-1 50 mcg/dl threshold) TRANSFERRIN 188 mg/dl (below low Range: 200-360 mg/dl threshold) % TRANSFERRIN SATURATION 7 % Range: 15- 50 % (below low threshold) Comments: Calculat ed by Middleware Ferritin Laboratory: [facility] Laboratory [address] [facility] [place] [address] tel: 16-Feb-2019 11:20 FERRITIN 28.8 ng/ml Range: 8-388 ng/ml In-House EKG ([facility]) Laboratory: [facility] Total Component (Pending) 18-Feb-2019 13:55 In-House EKG Total Component [facility] Test Date: [id number] Name: ROSEMARIE BARAKAT Detment: Room: 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1945 Requested By: Aaliyah BurgessOrder Number: [id number] Anabella MD: Kyle Hirsch MeasurementsIntervals [place] Rate: 92 P: 62PR: 148 QRS: 32QRSD: 77 T: 29QT: 343 QTc: 393 Interpretive StatementsSINUS RHYTHMMODERATE VOLTAGE CRITERIA FOR LVH, CONSIDER NORMAL VARIANTElectronically Signed On 02-21-2019 8:24:35 EDT by EDUARDO BurgessComed to an EKG from 03/15/2018, the heart rate is slower otherwise nochangeElectronically Signed On 02-23-2019 9:31:57 EDT by Kyle Hirsch MRI Brain Without Laboratory: [facility] Diagnostic Contrast Imaging [address] [facility] 22-Feb-2019 7:55 MRI BRAIN W/O CONTRAST [facility], [place] [phone] Magnetic Resonance Report Patient: ROSEMARIE BARAKAT Admit Date: MR#: [id number] Address1: [address] [place] [address] Acct ID:[id number] Address2: Date: 1945 [facility] Zip: [facility] [place] [address] Age: 74 Location: MRI Sex: F Room/Bed: Att Phy: Winsome Martini PA-C Diagnosi s: SYNCOPE,COLLAPSE Soraida Phy: RV. Reveles MD Servi ce Date: 02/22/19 Fam Phy: Interpreting Phy: Donavon Avitia MD Admit Phy: Ordering Phy: Winsome Martini PA-C cc: MR brain wo con HISTORY: Mental status change SYNCOPE TECHNIQUE: Multiplanar multisequence MRI of the brain was performed without the use of contrast. COMPARISON STUDY: 10/22/2017 FINDINGS: There are no areas of restricted diffusion to suggest acute infarction. The midline structures are intact. The paranasal sinuses are clear. The mastoid air cells are clear. The ventricles and sulci are within normal limits for age. There is no mass, hematoma, midline shift. The major vascular flow-voids at the skull base are well maintained. Age-related atrophy and chronicsmall vessel change IMPRESSION: No acute intracranial abnormality. Age-related atrophy and chronic small vessel change The above report was generated using voice recognition software. It may contain grammatical, syntax or spelling errors. Electronically signed by: Donavon Avitia M.D. 02/22/2019 7:58 AM Dictated: 02/22/19 0755 Transcribed: 02/22/19 0755 Comp Metabolic Panel Laboratory: [facility] Laboratory (Pending) [address] [facility] [address] tel: 03-Mar-2019 10:52 SODIUM 133 mmol/L (below low Range: 136 -145 mmol/L threshold) POTASSIUM 3.7 mmol/L Range: 3.5-5.1 mmo l/L CHLORIDE 101 mmol/L Range: 98-107 mmol/ L CARBON DIOXIDE 25 mmol/L Range: 21-32 m mol/L ANION GAP 7.0 Range: 3-11 BLOOD UREA NITROGEN 21 mg/dl Range: 7-1 8 mg/dl (above high threshold) CREATININE 0.87 mg/dl Range: 0.6-1.2 mg /dl Estimated GFR () Comment s: Units: ml/min per 76.1 1.73 meters squaredT he estimated GFR (CKD-E PI equation) has not be en validatedfor [facility]ral state hospitale nt settings and may not be an accurate reflectiono f renal function in critical ly ill patients or those wi thrapidly changing renal funct ion (e.g. LILA). Estimated GFR (Non- Comments: Uni ts: ml/min per [place]) 65.6 1.73 meters squaredT he estimated GFR (CKD-E PI equation) has not be en validatedfor inpatie nt settings and may not be an accurate reflectiono f renal function in critical ly ill patients or those wi thrapidly changing renal funct ion (e.g. LILA). BUN/CREATININE RATIO 24.1 (above Range: 10-20 high threshold) GLUCOSE 91 mg/dl Range: 70-99 mg/dl CALCIUM 8.5 mg/dl Range: 8.5-10.1 mg/ dl Bilirubin, Total 0.3 mg/dl Range: 0.2-1 mg/dl AST/SGOT 16 U/L Range: 15-37 U/L ALT/SGPT 17 U/L Range: 12-78 U/L TOTAL PROTEIN 8.0 {gm/dl} Range: 6.4-8. 2 gm/dl ALBUMIN 2.4 {gm/dl} (below low Range: 3 .4-5.0 gm/dl threshold) GLOBULIN 5.6 {gm/dl} (above high Range: 2.5-4.0 gm/dl threshold) ALB/GLOB RATIO 0.4 (below low Range: 0. 9-2 threshold) ALKALINE PHOSPHATASE 82 U/L Range: 45-1 17 U/L Iron (Pending) Laboratory: [facility] Laboratory [address] [facility] [address] tel: 03-Mar-2019 10:52 Iron 21 {mcg/dl} (below low Range: 35-1 50 mcg/dl threshold) Total Iron Binding Laboratory: [facility] Laboratory Capacity (TIBC) [address] [facility] ([place]ending) [place] [address] tel: 03-Mar-2019 10:52 TIBC 231 {mcg/dl} (below low Range: 250 -450 mcg/dl threshold) Ferritin (Pending) Laboratory: [facility] Laboratory [address] [facility] [address] tel: 03-Mar-2019 10:52 FERRITIN 55.9 ng/ml Range: 8-388 ng/ml Vitamin B12 (Pending) Laboratory: [facility] Laboratory [address] [facility] [address] tel: 03-Mar-2019 10:52 VITAMIN B12 589 pg/ml Range: 211-911 pg /ml Serum Folates (Pending) Laboratory: [facility] Laboratory [address] [facility] [address] tel: 03-Mar-2019 10:52 FOLATE > 24.00 ng/ml Range: >5.38 ng/ ml Comments: Deficient serum folate: 0.35 - 3.37 ng/mLIndeterminate serum folate: 3.38 - 5.38 ng/mLNormal serum folate: > 5.38 ng/mL Antibody Screen (Manual) Laboratory: [facility] Laboratory (Pending) [address] [facility] [address] tel: 03-Mar-2019 10:52 ANTIBODY SCREEN Run: 03/03/[address] [place] [address] Pathology Report --Name: ROSHNIROSEMARIE Age/Sex: 74/F Location: [facility]: [id number] Unit: [id number] Status: [facility] Room/Bed:Re03/03/19 Disch: Att Dr: Armida Gaitan Spec: [id number] Collected: 03/03/19eceived: 03/03/[address]: Armida GaitanCopdenilson To: Abdirizak, , Sami Prods: (NO ORDERED PRODUCTS)Ord Tests: Ab Screen, DATQueries: Patient Confirmed NIf Not Currently , Preg or Miscarriage Last 3 Mo? NoTransfusion of Blood, Platelets, FFP in Past 3 Months? UnknownLast 3 Months: Rhogam? NoGwyns Patient Ever Had a Blood Transfusion? Yes T est Result Flag Reference Site Antibody Screen NEGATIVEPoly AHG Neg NegativeIgG AHG Neg NegativeComp C3B,-C3D Neg NegativeResult Negative Negative ----Tests: Date Time Order Change Action 03/03/19 1053 Ab Screen 1 NEW [id number] NEW [id number] END OF REPORT CBC With DIFF (Pending) Laboratory: [facility] [place] [address] tel: 03-Mar-2019 10:52 WBC 6.81 K/uL Range: 4.8-10.8 K/u L RBC 2.92 {M/uL} (below low Range: 4.2-5 .4 M/uL threshold) HEMOGLOBIN 7.4 g/dL (below low Range: 1 2.0-16.0 g/dL threshold) HEMATOCRIT 25.0 % (below low Range: 37- 47 % threshold) MCV 85.6 fL Range: 80-100 fL MCH 25.3 pg Range: 25-34 pg MEAN CORPUSCULAR HGB CONC 29.6 Range: 3 2-36 g/dL g/dL (below low threshold) RED CELL DISTRIBUTION WIDTH SD Range: 3 6.4-46.3 fL 60.8 fL (above high threshold) RED CELL DISTRIBUTION WIDTH CV Range: 1 1.5-14.5 % 19.5 % (above high threshold) PLATELET COUNT 279 K/uL Range: 130-400 K/uL MEAN PLATELET VOLUME 9.3 fL Range: 7.4- 10.4 fL NEUT % 74.3 % Range: % LYMPH % 18.1 % Range: % MONO % 6.9 % Range: % EOS % 0.3 % Range: % BASO % 0.1 % Range: % IG% 0.3 % Range: % Comments: IG paramet er reflects the combination of Metas, Myelos andPromyelocytes. Neutrophils (Auto) 5.06 K/uL Range: 1. 4-6.5 K/uL LYMPH ABS # 1.23 K/uL Range: 1.2-3.4 K/ uL MONO ABS # 0.47 K/uL Range: 0.11-0.59 K /uL EOS ABS # 0.02 K/uL Range: 0-0.5 K/uL BASO ABS # 0.01 K/uL Range: 0-0.2 K/uL IG# 0.02 K/uL Range: 0.00-0.02 K/ uL HYPOCHROMIA Present STOMATOCYTE 1+ Peripheral Blood Smear Laboratory: [facility] Laboratory Read by Pathologist [address] [place] ([place]) [place] [address] tel: 03-Mar-2019 10:52 PERIPHERAL SMEAR PATHOLOG REV Comments: The peripheral blood shows a normoc ytic anemia withincreased anisopoikilocytosis and a dimorphic population ofred blood cells. Occasio nal spherocytes are pres ent butthere is no signi ficant increase in schistocytes.Polychr omasia is increased. There is no evidence ofrouleaux, RBC agglutination, basop hilic stippling, orcircula ting nucleated red blood cells. The WBC is normal an dall leukocytes are withi n normal absolute reference r anges.The granulocytes are appropriately segmen anli without overtdysplas tic features. No circula ting immature myeloidprec ursors or blasts are identifie d. The monocytes aremorphol ogically mature. The lymphocy thony are small tomoderate in size and mature, without over t atypicalfeatures. Th e platelets are quanti tatively normal. Noovertly dy splastic or giant forms are identified.The perip heral smear is remarkable for a normocytic anemiawit h a dimorphic population of red blood cells. Review ofthe patient's chart show s a history of lung canc er and lowiron levels. Dimo rphic red blood cells can be s een in thesettings of recen t blood transfusions, erythropoietintherap y, myelodysplasia and a significant increase in thereticulocyte coun t. Given the presence of occasionalspherocyte s, correlation with the pending hemolytic work-upis recommended. While t here are no overt features ofmyelodysplasia wit hin the granulocytes/platele ts, if aclinical cause for the patient's persistent anemia is notidentified the n a bone marrow biopsy may be warranted toexclude myelodysplasia. Plea se correlate clinically .Zoraida Sanabria M.D. TYPE/SCREEN Hold Profile Laboratory: [facility] Laboratory (Pending) [address] [facility] [address] tel: 03-Mar-2019 10:52 TYPE/SCREEN HOLD PROFILE Run: 03/05/19 113[address] [facility] [place] Pathology Report --Name: ROSEMARIE BARAKAT Age/Sex: 74/F [facility] [id number] Unit: [id number] Status: [facility] Room/Bed:Re03/04/19 Disch: Att Dr: Manny Taylor MD Spec: [id number] Collected: 03/03/19eceived: 03/03/[address]: Armida Gaitan CRNPCopy To: Abdirizak, RV., aMnny Tai MDOrd Prods: PC Leuko/4/-2Ord Tests: TS, NAGA, XM/4Comments: Keep Number of Units Available 2Transfuse Now YQueries: Patient Confirmed NIf Not Currently , Preg or Miscarriage Last 3 Mo? NoTransfusion of Blood, Platelets, FFP in Past 3 Months? UnknownLast 3 Months: Rhogam? NoHas Patient Ever Had a Blood Transfusion? Unknown ---Test Result Flag Reference Site Blood Type A PosAntibody Screen NEGATIVEPoly AHG Neg NegativeIgG AHG Neg NegativeComp C3B,-C3D Neg NegativeResult Negative NegativeXMPacked Cells, [id number] A Pos Compatible? YPacked Cells, [id number] A Pos Compatible? YPacked Cells, LeukoreducedTest not performedPacked Cells, LeukoreducedTest not performed ----- Packed Cells, Leukoreduced-------- Issue --------Unit # Bld Type Product Status Date Time User Rsrvd -[id number] A Pos PC Leuko TRANSFUSED 03/04/19915 08772Szhauq: 310 mL TX Begin: 03/04/19 By [id number] End: 03/04/19 By [id number] Date/Time: 03/04/19917 Gilberto Sims RN(RN) Entered by: 03/04/19918 Gilberto SimsRN (RN)Transfusion Rate: 50Occurred Date/Time: 03/04/19934 Gilberto Sims RN(RN) Entered by: 03/04/19 0950 [id number] Gilberto Sims RN (RN)Transfusion Rate: 200Occurred Date/Time: 03/04/19 0950 [id number] Gilberto Sims RN(RN) Entered by: 03/04/19 1029 [id number] Gilberto Sims, Run: 03/05/19 1136 [facility] Pathology Report Specimen: [id number] Collected: 03/03/19-1052 (Continued) RN (RN)Transfusion Rate: 200Pulse Rhythm: RegularOccurred Date/Time: 03/04/19 1121 [id number] Sylvia Monzon RN (RN) Entered by: 03/04/19 1122 [id number] Blandon RN (RN)Pulse Rhythm: RegularOccurred Date/Time: 03/04/19 1247 [id number] Sylvia Monzon RN (RN) Entered by: 03/04/19 1248 [id number] Blandon RN (RN)Pulse Rhythm: [id number] A Pos PC Leuko TRANSFUSED 03/04/19 1134 50715Dfujsy: 310 mL TX Begin: 03/04/19-1140 By [id number] End: 03/04/19-1257 By [id number] Date/Time: 03/04/19 1138 [id number] Gilberto Sims RN (RN)Entered by: 03/04/19 1138 [id number] Gilberto Sims RN (RN)Transfusion Rate: 50Pulse Rhythm: RegularOccurred Date/Time: 03/04/19 1155 [id number] Gilberto Sims RN (RN)Entered by: 03/04/19 1200 [id number] Gilberto Sims RN (RN)Transfusion Rate: 200Pulse Rhythm: RegularOccurred Date/Time: 03/04/19 1247 [id number] Sylvia Blandon RN (RN)Entered by: 03/04/19 1248 [id number] Sylvia Blandon RN (RN)Pulse Rhythm: RegularOccurred Date/Time: 03/04/19 1257 [id number] Sylvia Blandon RN (RN)Entered by: 03/04/19 1259 [id number] Sylvia Blandon RN (RN)Pulse Rhythm: Regular ---Tests: Date Time Order Change Action User03/03/19 1053 Ab Screen 1 NEW [id number] 1 NEW [id number]/03/19 1320 TS 1 ADD 72357Zb Screen -1 DEL 52904FY 2 ADD 0841 XM 2 ADD [id number] Products: Date Time Order Change Action 03/03/190 PC Leuko 2 ADD 0841 PC Leuko 2 ADD 0844 PC Leuko -2 [place] 27607 - END OF REPORT Haptoglobin (Pending) Laboratory: [facility]: [facility] NUMBER: [id number] 03-Mar-2019 10:52 Haptoglobin 318 {MG/DL} (above Range: 4 3-212 MG/DL high threshold) Comments: THIS TEST WAS PERFORMED AT:[facility]UN[facility];[address] [place], [place] [address]JARED JEAN MD Erythropoietin (EPO), Laboratory: [facility]: [facility] Serum (Pending) INC NUMBER: [id number] 03-Mar-2019 10:52 Erythropoietin 50.3 {MIU/ML} Range: 2.6 -18.5 MIU/ML (above high threshold) Comments: THIS TE ST WAS PERFORMED AT:[facility];[address] [place], [place] [address]JARED JEAN MD X-Ray Chest 1 View Laboratory: [facility] Diagnostic Portable (Pending) Imaging [facility] 10-Mar-2019 6:40 X-Ray Chest 1 VW Portable (CXR1P) [facility], [place] [phone] XRay Report Patient: ROSEMARIE BARAKAT Admit Date: MR#: [id number] Address1: [address] [place] [address] Acct ID:[id number] Address2: Date: 1945 [facility] Zip: [facility] [place] [address] Age: 74 Location: 2S Sex: F Room/Bed: [facility] Att Phy: Henry Mcfarlane M.D. Diagnosis: SHORT NESS OF BREATH Soraida Phy: RV. Reveles MD Servi ce Date: 03/09/19 Fam Phy: Interpreting Phy: Yuri Delong MD Admit Phy: Henry Mcfarlane M.D. Ordering Phy: Shad Gonzalez M.D. cc: XR chest 1V portable CLINICAL HISTORY: 74 years-old Female presenting with Shortness of breath. TECHNIQUE: Portable upright AP view of the chest was obtained. COMPARISON: 12/30/2018. FINDINGS: Left subclavian Mediport terminates in the lower SVC. Atherosclerosis of the aorta. Cardiac silhouette top normal in size. Leftward mediastinal shift relates to postsurgical changes of the left lung with a suture margin evident at the left apex. Diffuse heterogeneity of lung parenchyma with compensatory hyperinflation of the right lung. Architectural distortion at the left lung base with mild pulmonary vessel prominence. No focal superimposed opacity. No large effusion or pneumothorax. Degenerative changes of the thoracic spine. IMPRESSION: 1. Mild volume overload. No kasi pulmonary edema. 2. Underlying chronic lung disease suspected. 3. Postsurgical changes of the left lung. Electronically signed by: Yuri Delong M.D. 03/10/2019 7:05 AM Dictated: 03/10/19 0640 Transcribed: 03/10/[address] (Chest for Laboratory: [facility] Diagnostic PE)Angiography with Imaging 1800 [facility] 10-Mar-2019 6:39 CT CHEST FOR PE ANGIO WITH [facility], [place] [phone] CT Scan Report Patient: ROSEMARIE BARAKAT Admit Date: MR#: [id number] Address1: [address] Acct ID:[id number] Address2: Date: 1945 [facility] Zip: [place] [address] Age: 74 Location: 2S Sex: F Room/Bed: [facility] Att Phy: Henry Mcfarlane M.D. Diagnosis: SHORT NESS OF BREATH Soraida Phy: RV. Reveles MD Servi ce Date: 03/10/19 Fam Phy: Interpreting Phy: Yuri Delong MD Admit Phy: Henry Mcfarlane M.D. Ordering Phy: Shad Gonzalez M.D. cc: CT angio chest PE protocol CLINICAL HISTORY: 74 years-old Female presenting with atypical chest pain, shortness of breath. TECHNIQUE: Multidetector CT angiography of the chest was performed after administration of intravenous contrast. 3-D volumetric and/or maximum intensity projection (MIP) images were subsequently reconstructed for review. IV contrast: 82 mL of Optiray 320. One or more dose lowering techniques were used consistent with the principles of ALARA (as low as reasonably achievable), including automatic exposure control, mA or kV adjustment to individual patient size, and/or use of iterative reconstruction. COMPARISON: 12/14/2018. CT DOSE (mGy.cm): The estimated cumulative dose is 244.62 mGy.cm. FINDINGS: Gauger Delivery topogram: Unremarkable. Pulmonary vasculature: The study is adequate for assessment of the pulmonary vascular tree. No filling defect within the pulmonary arteries to suggest embolus. Main pulmonary artery is not enlarged. No flattening of the interventricular septum. No intracardiac filling defect. No reflux of contrast into the hepatic veins. Remaining chest: Soft tissues: Normal thyroid. Left subclavian Mediport terminates in the mid SVC. No axillary, supraclavicular, mediastinal, or hilar lymphadenopathy. Atherosclerosis of the aorta. Top normal heart size. Coronary artery calcification. Small bilateral pleural effusions, which are simple appearing. No pericardial effusion. Trace hilar hernia and mild distention of the lower esophagus. Lungs and airways: No pneumothorax. Significant debris in the lower trachea just proximal to the origin of the right mainstem bronchus. Extensive bronchial wall thickening with a lower lung predominance. Pulmonary arteries are not significantly enlarged relative to adjacent bronchi. Mild interlobular septal thickening with a lower lung predominance. Moderate centrilobular emphysema, which is diffuse. Postsurgical changes of left lower lobectomy. Resulting architectural distortion of the residual left upper lobe and compensatory hyperinflation of the right lung. The previously noted extensive mucous plugging and near complete collapse of the left upper lobe has entirely resolved. 4 mm nodule at the right apex (series 4 image 336), new from prior. Additional patchy nodular opacities with an upper lobe predominance are new from prior. The right middle lobe is affected to a lesser degree. Dependent consolidation, right greater than left, characteristic of passive atelectasis. Musculoskeletal: Degenerative changes of the spine. IMPRESSION: 1. Minimal patchy nodular infiltrates at the apices from prior likely on an infectious or inflammatory basis. 2. Background moderate emphysema and bronchitis. 3. Resolution of prior collapse of the left upper lobe. 4. Postsurgical changes of left lower lobectomy. 5. Significant debris in the lower trachea near the origin of the right mainstem bronchus. Correlate for a history of aspiration. 6. Small bilateral pleural effusions. Electronically signed by: Yuri Delong M.D. 03/10/2019 7:26 AM Dictated: 03/10/19638 Transcribed: 03/10/19638 MRI Lumbar Spine w/o Laboratory: [facility] Diagnostic Contrast (Pending) Imaging [facility] 10-Mar-2019 13:25 LUMBAR SPINE W/O CONTRAST [facility], [place] [phone] Magnetic Resonance Report Patient: ROSEMARIE BARAKAT Admit Date: MR#: [id number] Address1: [address] Acct ID:[id number] Address2: Date: 1945 [facility] Zip: [place] [address] Age: 74 Location: 2S Sex: F Room/Bed: [facility] Att Phy: Kyara Meehan MD Diagnosis: S HORTNESS OF BREATH Soraida Phy: RV. Reveles MD Servi ce Date: 03/10/19 Fam Phy: Interpreting Phy: Jeremy Matos her Admit Phy: Henry Mcfarlane M.D. Ordering Phy: Kyara Meehan MD cc: MR lumbar spine wo con CLINICAL HISTORY: 74 years-old Female with low back pain,fall,suspect endocarditis,r/o discit. Acute low back pain with endocarditis. COMPARISON: CTA of the chest 03/10/2019. TECHNIQUE: Multiplanar, multi sequence MRI of the lumbar spine was performed without intravenous contrast. FINDINGS: 1.3 cm perineural root sleeve cyst noted on the left posterior to the S3 vertebral body. Just superior to this is a 6 mm perineural root sleeve cyst. There is a 1.7 cm synovial cyst posterior tothe right L5-S1 facet articulation. Moderate to extensive bone marrow edema at the T11-T12 and L3-J8uspwxk with fluid seen within the disc spaces at these levels. Mild to moderate surrounding paravertebral edema is also noted at these interspaces. T11-T12 is not imaged on the axial sequences. At L3-L4 there is a 11 x 8 mm fluid collection about the left psoas musculature on image 17 series 7 suggestive of a small abscess. Moderate edema of the left psoas musculature is suggestive of myositis. There is suggestion of mild early endplate erosive changes at L3-L4 without significant erosion identified at T11-T12. No definite epidural abscess identified. No acute fracture or subluxation identified. Conus medullaris terminates at the L1 level. Signal within the thoracic spinal cord appears normal.The study is mildly motion degraded. T12-L1: Moderate disc space narrowing with spondylitic spurring, circumferential annular disc bulge and posterior annular fissure with moderate facet arthrosis. Additionally, there is a right paracentral disc protrusion. Mild central canal stenosis without significant foraminal narrowing. L1-L2: Moderate disc space narrowing and spondylitic spurring, circumferential annular disc bulge and moderate facet arthrosis. Flattening of the ventral thecal sac without significant central canalstenosis. There is mild bilateral foraminal narrowing. L2-L3: Moderate disc space narrowing with spondylitic spurring, circumferential annular disc bulgeand moderate facet arthrosis. Flattening of the ventral thecal sac without significant central canalnarrowing. Right foramen is patent. Mild left foraminal narrowing. L3-L4: Findings suggestive of discitis osteomyelitis as above. No epidural fluid collection. 4 mm retrolisthesis L3 on L4 is likely on a degenerative basis. Severe facet arthrosis with ligamentum flavum thickening, posterior spondylitic spurring with circumferential annular disc bulge. Moderate central canal stenosis with severe left and mild to moderate right foraminal narrowing. L4-L5: Mild to moderate disc space narrowing with circumferential annular disc bulge, posterior spondylitic spurring, severe facet arthrosis with ligamentum flavum thickening. There is moderate central canal stenosis with mild to moderate bilateral foraminal narrowing. L5-S1: Small posterior annular disc bulge with spondylitic spurring, severe facet arthrosis with right facet effusion. Central canal is patent. Moderate right and mild to moderate left foraminal narrowing. IMPRESSION: 1. Findings suggestive of acute discitis osteomyelitis at the T11-T12 and L3-L4 levels. Mild associated endplate erosion/destruction at L3-L4. No epidural fluid collections or significant endplate collapse. 2. Moderate myositis about the left psoas musculature with associated 11 mm abscess at the L3-L4 level. 3. Multilevel disc space narrowing with spondylitic spurring and facet arthropathy as detailed above. The above report was generated using voice recognition software. It may contain grammatical, syntaxor spelling errors. Dictated: 03/10/2019 1:25 PM Transcribed: 03/10/2019 1:47 PM Allyson [id number] [facility]_Jimmy Electronically signed by: Junior Rocha M.D. 03/10/2019 2:00 PM Dictated: 03/10/19 1325 Transcribed: 03/10/19 1347 MRI Brain W+WO Contrast Laboratory: [facility] Diagnostic (Pending) Imaging [address] [place] 11-Mar-2019 17:21 MRI BRAIN W/ AND W/O CONTRAST [facility], [place] [phone] Magnetic Resonance Report Patient: ROSEMARIE BARAKAT Admit Date: MR#: [id number] Address1: [facility] Acct ID:[id number] Address2: Date: 1945 [facility] Zip[facility] [address] Age: 74 Location: 2S Sex: F Room/Bed: [id number] Att Phy: Kyara Meehan MD Diagnosis: S HORTNESS OF BREATH Soraida Phy: RV. Reveles MD Servi ce Date: 03/11/19 Fam Phy: Interpreting Phy: Jeremy Matos her Admit Phy: Henry Mcfarlane M.D. Ordering Phy: Kyara Meehan MD cc: MR brain wo/w con HISTORY: 74 years-old Female infective endocarditis,r/o cerebral emboli acute headache with recentsyncope COMPARISON: MRI of the brain 02/22/2019 and 10/22/2017 TECHNIQUE: Multiplanar multisequence MRI of the brain was obtained both with and without the use of4.5 mL Gadavist FINDINGS: The large field of view framing carpenter localizer images demonstrate no gross extracranial abnormality. Thereis no restricted diffusion to suggest acute or subacute infarction. The midline structures includingthe corpus callosum, brainstem, optic chiasm, pituitary and pineal glands appear unremarkable the sagittal T1 series. There is no cerebellar tonsillar herniation. Imaged and changes are noted about the imaged cervical spine. There is no acute intracranial hemorrhage, midline shift, abnormal extra-axial collections, hydrocephalus or intracranial mass identified. Mild age-related involutional changes. Moderate T2/FLAIR hyperintensities about the subcortical and periventricular white matter are suggestive of chronic microvascular ischemic changes. 6 x 5 mm ovoid focus of ill-defined increased signal about the central nilay is noted on the postcontrast series, image 10 series 9. This was not present on comparison study from 10/22/2017 and is also not present on the thin section postcontrast images compatible with artifact. There is no additional abnormal intra-axial or extra-axial enhancement identified. Senescent calcifications noted about the lentiform nuclei. Flow voids at the level the skull base appear patent. The study is mildly motion degraded. Mastoid air cells are clear. Prior bilateral cataract appear. Mild mucosal thickening of the paranasal sinuses. Skull and soft tissues are unremarkable. IMPRESSION: 1. No acute intracranial abnormality. 2. No abnormal enhancement. 3. Mild age-related involutional changes with moderate chronic microvascular ischemic changes. 4. Mild paranasal sinus disease. The above report was generated using voice recognition software. It may contain grammatical, syntaxor spelling errors. Electronically signed by: Juinor Rocha M.D. 03/11/2019 5:52 PM Dictated: 03/11/19 172 Transcribed: 03/11/[address] Abd/Pelvis w/o Laboratory: [facility] Diagnostic Contrast (No IV, No Imaging [address] [place] Oral) (Pending) [facility] 14-Mar-2019 11:46 CT ABD/PELVIS NO IV OR ORAL CN [facility], [place] [phone] CT Scan Report Patient: ROSEMARIE BARAKAT Admit Date: MR#: [id number] Address1: [address] Acct ID:[id number] Address2: Date: 1945 [facility] Zip: [place] [address] Age: 74 Location: Sex: F Room/Bed: [facility] Att Phy: Shahid Graves MD Diagnosis: SH ORTNESS OF BREATH Soraida Phy: RV. Reveles MD Servi ce Date: 03/14/19 Fam Phy: Interpreting Phy: Abram Jeronimo Admit Phy: Henry Mcfarlane M.D. Ordering Phy: Shahid Graves MD cc: CT SCAN OF THE ABDOMEN AND PELVIS WITHOUT IV CONTRAST CLINICAL HISTORY: Bacteremia. Endocarditis. COMPARISON STUDY: PET CT dated 09/14/2017. Chest CT dated 03/10/2019 and 12/14/2018. MRI of the lumbar spine dated 03/10/2019. TECHNIQUE: CT scan of the abdomen and pelvis is performed from the lung bases to the proximal femora. Images are reviewed in the axial, sagittal, and coronal planes. IV contrast was not administered for this examination as per the referring clinician. Note that the examination was performed in suboptimal fashion without oral and IV contrast. A dose lowering technique was utilizedadhering to the principles of ALARA. CT DOSE: 229.95 mGy.cm FINDINGS: Lung bases: The heart is mildly enlarged and without pericardial effusion. The coronary arteries are densely calcified. There is volume loss in the left lung. Advanced emphysema is noted. There aresmall pleural effusions with right bibasilar consolidation. Liver: The unenhanced liver is normal in size, contour, and attenuation. There is no intrahepatic biliary ductal dilatation. Gallbladder: Unremarkable. Spleen: Normal in size and attenuation. Pancreas: The unenhanced pancreas is moderately atrophic and grossly unremarkable. Adrenal glands: Unremarkable. Kidneys: The unenhanced kidneys are normal in size and without hydronephrosis. There are no renal calculi identified. There is no evidence of contour deforming renal mass lesion. Abdominal vasculature: The abdominal aorta is normal in course and caliber noting advanced atherosclerotic calcification. Bowel: There is moderate colonic fecal retention. No bowel obstruction is seen. The appendix is normal as imaged. Peritoneum: There is no intraperitoneal free air or abdominal ascites. Lymphadenopathy: None. Pelvic viscera: The bladder is distended and contains intraluminal gas. The uterus and adnexa are normal as imaged. Skeletal structures: No the skeletal structures are osteopenic. There is endplate erosion/destruction with significant paravertebral edema identified at T11-T12 and L3-L4. The findings at T11-T12 are new from 12/14/2018. No lytic or blastic lesions are seen. IMPRESSION: 1. Again seen are findings of discitis/osteomyelitis at T11-T12 and L3-L4 with significant paravertebral edema. 2. Cardiomegaly and advanced emphysema. 3. There is gas within the bladder lumen. This is nonspecific and correlation with urinalysis is recommended. 4. There are small pleural effusions with right basilar consolidation. Correlate clinically for evidence of pneumonia/aspiration pneumonitis. 5. Additional findings as above. Electronically signed by: Abram Velez M.D. 03/14/2019 12:18 PM Dictated: 03/14/19 1146 Transcribed: 03/14/19 1146 Vital Signs 07-Mar-2019 10:01 Systolic 140 mm[Hg] Diastolic 60 mm[Hg] Weight 104 lb BMI Calculated 21.01 kg/m2 BSA Calculated 1.4 m2 Respiration 16 /min Heart Rate 80 /min 03-Mar-2019 13:26 Systolic 144 mm[Hg] Comments: Location: LUE; Position: Sitting Diastolic 62 mm[Hg] Comments: Location: LUE; Position: Sitting Weight 102.5 lb BMI Calculated 20.7 kg/m2 BSA Calculated 1.39 m2 Respiration 16 /min Heart Rate 86 /min Comments: Location: L Radial; Height 59 in O2 Saturation 98 % 28-Feb-2019 8:31 Systolic 150 mm[Hg] Diastolic 58 mm[Hg] Weight 100 lb BMI Calculated 20.2 kg/m2 BSA Calculated 1.37 m2 Respiration 16 /min Heart Rate 100 /min O2 Saturation 100 % 22-Feb-2019 13:31 Systolic 125 mm[Hg] Diastolic 56 mm[Hg] Respiration 16 /min Heart Rate 101 /min O2 Saturation 99 % Comments: Source: 18-Feb-2019 13:59 Systolic 132 mm[Hg] Diastolic 60 mm[Hg] Weight 104.375 lb BMI Calculated 21.08 kg/m2 BSA Calculated 1.4 m2 Heart Rate 100 /min 16-Feb-2019 10:01 Systolic 146 mm[Hg] Diastolic 62 mm[Hg] Weight 105.125 lb BMI Calculated 21.23 kg/m2 BSA Calculated 1.4 m2 Heart Rate 106 /min 14-Feb-2019 8:52 Systolic 148 mm[Hg] Diastolic 58 mm[Hg] Weight 104 lb BMI Calculated 21.01 kg/m2 BSA Calculated 1.4 m2 Heart Rate 92 /min Temperature 98.6 f Encounters Appointment; Winsome Martini PA-C 14-Mar-2019 9:00 Encounter Diagnosis: Problem not documented Appointment; Tete Osborne PA-C 07-Mar-2019 10:00 Encounter Diagnosis: Problem not documented Appointment; Tete Osborne PA-C 03-Mar-2019 13:15 Encounter Diagnosis: Problem not documented Appointment; Cornell Reveles M.D. 8:20 Encounter Diagnosis: Problem not documented Appointment; Quinton Zimmer M.D. 22-Feb-2019 13:30 Encounter Diagnosis: Problem not documented Appointment; Aaliyah Florian PA-C 18-Feb-2019 14:00 Encounter Diagnosis: Problem not documented Appointment; [facility], Nursing Station 18-Feb-2019 14:00 Encounter Diagnosis: Problem not documented Appointment; Winsome Martini PA-C 16-Feb-2019 11:00 Encounter Diagnosis: Problem not documented Appointment; [facility], Nursing Station 16-Feb-2019 10:00 Encounter Diagnosis: Problem not documented Appointment; Winsome Martini PA-C 14-Feb-2019 9:00 Encounter Diagnosis: Problem not documented Appointment; Winsome Martini PA-C 03-Feb-2019 11:00 Encounter Diagnosis: Problem not documented Appointment; Quinton Zimmer M.D. 30-Dec-2018 9:15 Encounter Diagnosis: Problem not documented Appointment; [facility], Nursing Station 23-Dec-2018 9:00 Encounter Diagnosis: Problem not documented Appointment; Cornell Reveles M.D. 22-Dec-2018 11:40 Encounter Diagnosis: Problem not documented Appointment; Kyle Hirsch M.D. 26-Oct-2018 10:45 Encounter Diagnosis: Problem not documented Appointment; Quinton Zimmer M.D. 25-Oct-2018 11:30 Encounter Diagnosis: Problem not documented Appointment; Cornell Reveles M.D. 8 8:40 Encounter Diagnosis: Problem not documented Appointment; Cornell Reveles M.D. 23-Sep-2018 9:00 Encounter Diagnosis: Problem not documented Appointment; Quinton Zimmer M.D. 12-Jul-2018 13:30 Encounter Diagnosis: Problem not documented Appointment; Serge Prashant 29-May-2018 9:30 Encounter Diagnosis: Problem not documented Appointment; Alessandra Li M.D. 13-May-2018 15:00 Encounter Diagnosis: Problem not documented Appointment; Kyle Hirsch M.D. 23-Apr-2018 14:45 Encounter Diagnosis: Problem not documented Appointment; Tete Osborne PA-C 08-Apr-2018 8:30 Encounter Diagnosis: Problem not documented Appointment; Quinton Zimmer M.D. 01-Apr-2018 14:15 Encounter Diagnosis: Problem not documented Appointment; Cornell Reveles M.D. 8 11:40 Encounter Diagnosis: Problem not documented Appointment; Tete Osborne PA-C 26-Mar-2018 9:30 Encounter Diagnosis: Problem not documented Appointment; Cornell Reveles M.D. 23-Mar-2018 9:20 Encounter Diagnosis: Problem not documented Appointment; Laura Pittman PA-C 15-Mar-2018 9:00 Encounter Diagnosis: Problem not documented Appointment; Ben Cardona PA-C 12-Jan-2018 14:00 Encounter Diagnosis: Problem not documented Appointment; Cornell Reveles M.D. 17-Dec-2017 14:20 Encounter Diagnosis: Problem not documented Appointment; Pharmacy, Primary Care 17-Dec-2017 14:00 Encounter Diagnosis: Problem not documented Appointment; Quinton Zimmer M.D. 05-Nov-2017 10:15 Encounter Diagnosis: Problem not documented Appointment; Surg [facility], Nursing Station 03-Nov-2017 8:30 Encounter Diagnosis: Problem not documented Appointment; Cornell Reveles M.D. 15:00 Encounter Diagnosis: Problem not documented Appointment; Kyle Hirsch M.D. 23-Oct-2017 13:45 Encounter Diagnosis: Problem not documented Appointment; Wili Dumas M.D. 19-Oct-2017 13:00 Encounter Diagnosis: Problem not documented Appointment; Quinton Zimmer M.D. 15-Oct-2017 10:30 Encounter Diagnosis: Problem not documented Appointment; Rhonda Cortez PA-C 15-Oct-2017 10:00 Encounter Diagnosis: Problem not documented Appointment; Quinton Zimmer M.D. 01-Oct-2017 14:00 Encounter Diagnosis: Problem not documented Appointment; Quinton Zimmer M.D. 23-Sep-2017 10:10 Encounter Diagnosis: Problem not documented Appointment; Quinton Zimmer M.D. 22-Sep-2017 14:00 Encounter Diagnosis: Problem not documented Appointment; Kyle Hirsch M.D. 22-Sep-2017 9:30 Encounter Diagnosis: Problem not documented Appointment; Quinton Zimmer M.D. 21-Sep-2017 11:30 Encounter Diagnosis: Problem not documented Appointment; Comfort Lau PA-C 15-Sep-2017 11:15 Encounter Diagnosis: Problem not documented Appointment; Celestina Anaya CRNP 10-Sep-2017 14:45 Encounter Diagnosis: Problem not documented Appointment; Red Worley M.D. 08-Sep-2017 12:15 Encounter Diagnosis: Problem not documented Appointment; Red Worley M.D. 31-Aug-2017 14:00 Encounter Diagnosis: Problem not documented Appointment; Red Worley M.D. 28-Aug-2017 10:00 Encounter Diagnosis: Problem not documented Appointment; Celestina Anaya CRNP 19-Aug-2017 14:45 Encounter Diagnosis: Problem not documented Appointment; Kyle Hirsch M.D. 10-May-2019 10:15 Encounter Diagnosis: Problem not documented
[2019-03-15] MEDS: AMPICILLIN 2,000 MG in SODIUM CHLOR 0.9% AD-VAN 100 ML IV SCH ×4 (02:28→19:56)
[2019-03-15] MEDS: dilTIAZem HCL 240 MG CAPCR PO SCH (08:45)
--- NOTE | 2019-03-15 08:50 | Surgery Progress Note ---
Date of Service March 15, 2019 Assessment & Plan (1) Gram positive sepsis: POD 1 A-port removal sutures can be removed in clinic in approx 10 days can shower tomorrow Subjective no complaints just wants to go home Physical Exam Skin: + incision (dry 2x2 dressing) Results & Data Vital Signs (Past 12 Hours) Vital Signs Temp Pulse Pulse Resp BP Pulse Ox Pulse Ox 03/15/19 08:43 98 03/15/19 08:09 36.4 C L 80 18 174/69 H 96 03/15/19 03:32 36.7 C 84 18 160/69 H 97 03/15/19 00:00 96 03/14/19 23:35 37 C 88 22 177/52 H 95 03/14/19 23:01 82
[2019-03-15] MEDS: ALPRAZolam 0.5 MG TABLET PO SCH (09:13)
[2019-03-15] MEDS: LOSARTAN POTASSIUM 25 MG TAB PO SCH (09:13)
[2019-03-15] MEDS: cefTRIAXone SODIUM 2,000 MG in DEXTROSE 5% 50 ML IV SCH ×2 (09:14→19:55)
[2019-03-15 09:29] LABS: BUN Creatinine Ratio 17.4 (10-20); Calcium 8.3 mg/dl (8.5-10.1); Est GFR (African American) 100.4; Est GFR (Non-African American) 86.6
[2019-03-15] MEDS: ACETAMINOPHEN 325 MG TAB PO PRN ×2 (12:36→20:32)
--- NOTE | 2019-03-15 14:34 | Infectious Disease Progress Nt ---
Date of Service March 15, 2019 Assessment & Plan (1) Infective endocarditis: continue abx, s/p port removal. follow cultures. will need prolonged course of abx. (2) Gram positive sepsis: (3) Discitis of multiple sites of spine: Subjective pt s/p port removal yesterday afternoon, cath tip culture pending, had clot on cath tip. repeat blood cultures pendng, all previous culture growing E. faecalis. tolerating abx, afebrile. ct abd done yesterday, negative except for discitis already seen on MRI. Results & Data Vital Signs (Past 12 Hours) Vital Signs Temp Pulse Pulse Resp BP Pulse Ox 03/15/19 12:54 92 03/15/19 10:58 36.7 C 86 18 183/75 H 94 03/15/19 08:43 98 03/15/19 08:09 36.4 C L 80 18 174/69 H 96 03/15/19 03:32 36.7 C 84 18 160/69 H 97 Laboratory Results Microbiology 03/14/19 16:44 Catheter Tip, A-port Catheter Tip Culture - Preliminary No growth to date. 03/13/19 09:00 Blood Blood Culture - Preliminary Streptococcus species 03/13/19 08:50 Blood Blood Culture - Preliminary Streptococcus species 03/12/19 06:28 Blood Blood Culture - Preliminary Enterococcus faecalis 03/12/19 06:12 Blood Blood Culture - Preliminary Enterococcus faecalis 03/11/19 06:53 Blood Blood Culture - Preliminary Enterococcus faecalis 03/11/19 07:36 Blood Blood Culture - Preliminary Enterococcus faecalis 03/11/19 00:21 Urine,Random Urine Culture - Final Enterococcus faecalis 03/10/19 12:11 Blood Blood Culture - Final Enterococcus faecalis 03/10/19 12:11 Blood Blood Culture - Final Enterococcus faecalis (1) Infective endocarditis Chronicity: acute Infective endocarditis organism: bacterial Qualified Code(s): I33.0 - Acute and subacute infective endocarditis
--- NOTE | 2019-03-15 21:29 | Hospitalist Progress Note ---
Date of Service March 15, 2019 Assessment & Plan (1) Infective endocarditis: MV and AV. Fortunately valve function is relatively intact. LV function preserved. Pathogen undoubtedly is enterococcus. Source for septicemia/endocarditis - suspected to be from her port - s/p removal yesterday by Dr Dumas. All cultures were positive for enterococcus however her 03/14 blood cultures are thus far NEGATIVE. Port tip culture pending. Appreciate ID and gen surg along w/ cardiology consultations. Cont IV amp and rocephin x 6 weeks. If 03/14 cultures remain negative then proceed w/ PICC line placement. (2) Septicemia due to enterococcus: see above in "infective endocarditis." 03/14/19 cultures thus far negative follow (3) Discitis of multiple sites of spine: T11-T12 L3-L4 seen by orthopedics spine - no surgical intervention at this time. continue IV antibiotic therapy. pain control. (4) COPD (chronic obstructive pulmonary disease): Cont nebs prn. Desperately needs to quit smoking. Has prior h/o left-sided lung cancer s/p resection. (5) Current smoker: offered nicoderm patch - again declined today. counseled to quit. (6) Anemia: Fe studies, b12, folate - wnl. anemia of chronic disease? acute anemia due to infective endocarditis? repeat CBC am. s/p 2units PRBCs this admission. (7) Chronic kidney disease, stage 3a: creatinine stable again today. (8) Dyspnea: multifactorial - likely due to COPD, infective endocarditis, and previous episode of mucous plugging. the dyspnea got so severe earlier this stay that she had respiratory distress from such. fortunately dyspnea has resolved. (9) Atrial fibrillation: PAF - on chronic xarelto. NSR on monitoring. (10) Rheumatoid arthritis: quiescent at this time. not on disease modifying agents. (11) Psoas abscess, left: very small, about 1cm, treat with IV abx therapy. no apparent symptoms from such. (12) Left flank pain: CT abd/pelvis without any renal pathology. this is likely referred pain from her thoracic discitis. (13) Cognitive impairment: appears to have cognitive impairment. vs delirium vs depression masquerading as cognitive impairment. follow for now. if crying/tearfulness continues consider SSRI. (14) DVT prophylaxis: xarelto extensive update given to patient at bedside today Subjective like yesterday pt VERY tearful, anxious, repeatedly stating "no one is telling me anything." she has poor insight and understanding of her illness despite me telling her the same information that I had given her yesterday. she was very upset she was not allowed to walk on her own. upset at her family for telling the hospital "that she had fallen at home." requests that when family call we do NOT share medical info with them. staff report poor short term memory and impulsiveness. patient denies significant back or flank pain today. no dyspnea or cp. Review of Systems Constitutional: no fever Respiratory: no cough and no dyspnea Cardiovascular: no chest pain Gastrointestinal: no abdominal pain Physical Exam Constitutional: + thin; no acute distress very tearful, anxious ENMT: external ear and nose normal, oropharynx normal Respiratory: normal respiratory effort, lungs clear to auscultation Auscultation: + diminished lung sounds (bases) Cardiovascular: Rate/Rhythm: regular rate and regular rhythm Heart Sounds: normal S1, normal S2 and + murmur (1/6 LSB) Vessels: posterior tibial pulses present and dorsalis pedis pulses present; no JVD Gastrointestinal (Abdomen): normal bowel sounds, soft, nontender, no hepatosplenomegaly Skin: former port site left upper chest clean Psychiatric: Orientation: alert; + not oriented x 3 Mood: + depressed mood and + anxious mood Results & Data Vital Signs (Past 12 Hours) Vital Signs Temp Pulse Resp BP Pulse Ox 03/15/19 19:12 36.5 C 82 16 169/65 H 94 03/15/19 15:16 36.4 C L 78 16 152/68 H 97 03/15/19 12:54 92 03/15/19 10:58 36.7 C 86 18 183/75 H 94 Laboratory Results Laboratory Results - last 24 hr 03/15/19 03/15/19 06:48 12:15 Sodium 136 Potassium 4.0 D Chloride 104 Carbon Dioxide 23 Anion Gap 9.0 BUN 12 Creatinine 0.67 Est Cr Clr Drug Dosing 50.0 Est GFR ( Amer) 100.4 Est GFR (Non-Af Amer) 86.6 BUN/Creatinine Ratio 17.4 Glucose 86 Calcium 8.3 L Stool Occult Bld Scrn Positive H (1) Rheumatoid arthritis Rheumatoid arthritis location: unspecified site Rheumatoid factor presence: unspecified presence Qualified Code(s): M06.9 - Rheumatoid arthritis, unspecified (2) Anemia Anemia type: iron deficiency Iron deficiency anemia type: unspecified iron deficiency Qualified Code(s): D50.9 - Iron deficiency anemia, unspecified (3) Infective endocarditis Chronicity: acute Infective endocarditis organism: bacterial Qualified Code(s): I33.0 - Acute and subacute infective endocarditis (4) Atrial fibrillation Atrial fibrillation type: unspecified Qualified Code(s): I48.91 - Unspecified atrial fibrillation (5) Dyspnea Dyspnea type: unspecified Qualified Code(s): R06.00 - Dyspnea, unspecified (6) COPD (chronic obstructive pulmonary disease) COPD type: unspecified COPD Qualified Code(s): J44.9 - Chronic obstructive pulmonary disease, unspecified
[2019-03-16] MEDS: AMPICILLIN 2,000 MG in SODIUM CHLOR 0.9% AD-VAN 100 ML IV SCH ×4 (01:22→19:21)
[2019-03-16 06:23] LABS: Hematocrit (blood only) 33.4 % (37-47); Hemoglobin 11.1 g/dL (12.0-16.0); Mean Corpuscular Hgb Conc 33.2 g/dL (32-36); Mean Corpuscular Volume 82.5 fL (80-100); Mean Platelet Volume 9.3 fL (7.4-10.4); Platelet Count 219 K/uL (130-400); RDW Coefficient of Variation 16.1 % (11.5-14.5); RDW Standard Deviation 48.9 fL (36.4-46.3); Red Blood Count 4.05 M/uL (4.2-5.4); White Blood Count 7.78 K/uL (4.8-10.8)
[2019-03-16 07:01] LABS: BUN Creatinine Ratio 19.7 (10-20); Calcium 7.9 mg/dl (8.5-10.1); Creatinine Clr Calc Pharmacy 48.8 ml/min; Est GFR (African American) 99.4; Est GFR (Non-African American) 85.8; Potassium 3.4 mmol/L (3.5-5.1)
[2019-03-16] MEDS: ACETAMINOPHEN 325 MG TAB PO PRN ×3 (07:56→21:08)
[2019-03-16] MEDS: ALPRAZolam 0.5 MG TABLET PO SCH (07:56)
[2019-03-16] MEDS: LOSARTAN POTASSIUM 25 MG TAB PO SCH (07:57)
[2019-03-16] MEDS: dilTIAZem HCL 240 MG CAPCR PO SCH (07:57)
[2019-03-16] MEDS ORDERED: LOSARTAN POTASSIUM 25 MG TAB PO ONE (08:30)
[2019-03-16] MEDS: cefTRIAXone SODIUM 2,000 MG in DEXTROSE 5% 50 ML IV SCH ×2 (08:31→19:58)
[2019-03-16] MEDS: POTASSIUM CHLORIDE 20 MEQ TABCR PO SCH ×2 (10:05→19:58)
--- NOTE | 2019-03-16 14:14 | Infectious Disease Progress Nt ---
Date of Service March 16, 2019 Assessment & Plan (1) Infective endocarditis: will continue on current abx, will need 6 weeks from first negative culture, 03/14 negative to date. suspect infected port/clot on port as source for infection, port now out. will need picc line. spoke with primary. will need follow up post d/c from hospital. (2) Gram positive sepsis: (3) Discitis of multiple sites of spine: Subjective 03/14 cultures remain negative, port culture growing gpc, no final identification to be done. afebrile. tolerating amp and ctx. working with pt during rounds today. wbc 7.7.All previous cultures growing E. faecalis. Results & Data Vital Signs (Past 12 Hours) Vital Signs Temp Pulse Pulse Resp BP BP Pulse Ox 03/16/19 11:09 36.4 C L 74 18 135/69 96 03/16/19 10:04 83 171/68 H 03/16/19 07:09 36.5 C 86 16 186/69 H 93 03/16/19 04:31 36.7 C 81 18 181/66 H 95 Laboratory Results Microbiology 03/14/19 16:44 Catheter Tip, A-port Catheter Tip Culture - Preliminary Gram positive cocci 03/13/19 08:50 Blood Blood Culture - Preliminary Enterococcus faecalis 03/13/19 09:00 Blood Blood Culture - Preliminary Enterococcus faecalis 03/14/19 11:10 Blood Blood Culture - Preliminary No growth to date. 03/14/19 10:24 Blood Blood Culture - Preliminary No growth to date. 03/12/19 06:28 Blood Blood Culture - Preliminary Enterococcus faecalis 03/12/19 06:12 Blood Blood Culture - Preliminary Enterococcus faecalis 03/11/19 06:53 Blood Blood Culture - Preliminary Enterococcus faecalis 03/11/19 07:36 Blood Blood Culture - Preliminary Enterococcus faecalis 03/11/19 00:21 Urine,Random Urine Culture - Final Enterococcus faecalis 03/10/19 12:11 Blood Blood Culture - Final Enterococcus faecalis 03/10/19 12:11 Blood Blood Culture - Final Enterococcus faecalis (1) Infective endocarditis Chronicity: acute Infective endocarditis organism: bacterial Qualified Code(s): I33.0 - Acute and subacute infective endocarditis
--- NOTE | 2019-03-16 16:00 | Progress Note ---
Date of Service March 16, 2019 Assessment & Plan (1) Intravenous catheter sepsis: Cath tip had attached clot- growing gm+ org already obviously infected leave sutures 2 weeks Results & Data Vital Signs (Past 12 Hours) Vital Signs Temp Pulse Pulse Resp BP BP Pulse Ox 03/16/19 15:17 36.3 C L 71 16 134/73 97 03/16/19 11:09 36.4 C L 74 18 135/69 96 03/16/19 10:04 83 171/68 H 03/16/19 07:09 36.5 C 86 16 186/69 H 93 03/16/19 04:31 36.7 C 81 18 181/66 H 95
[2019-03-16 17:59] LABS: Albumin 2.4 G/DL (3.8-4.8); Alpha 1 Globulin 0.6 G/DL (0.2-0.3); Alpha 2 Globulin 0.8 G/DL (0.5-0.9); Beta-1-Globulin 0.4 G/DL (0.4-0.6); Beta-2-Globulin 0.3 G/DL (0.2-0.5); Gamma Globulin 1.6 G/DL (0.8-1.7); Monoclonal Protein Band 1 DNR G/DL (NOT DETECTED); Monoclonal Protein Band 2 DNR G/DL (NOT DETECTED); Monoclonal Protein Band 3 DNR G/DL (NOT DETECTED); Total Protein 6.2 G/DL (6.2-8.3)
--- NOTE | 2019-03-16 21:28 | Hospitalist Progress Note ---
Date of Service March 16, 2019 Assessment & Plan (1) Infective endocarditis: MV and AV. Fortunately valve function is relatively intact. LV function preserved. Pathogen undoubtedly is enterococcus. Source for septicemia/endocarditis - PORT. s/p removal by Dr Dumas -- POD #2. All cultures were positive for enterococcus however her 03/14 blood cultures are still NEGATIVE suggesting sterility. Port tip culture pending but thus far showing GPC (presumed to be enterococcus). Appreciate ID and gen surg along w/ cardiology consultations. Cont IV amp and rocephin x 6 weeks. Will proceed with PICC placement since 03/14 cx's are negative. PICC consent obtained. (2) Septicemia due to enterococcus: see above in "infective endocarditis." 03/14/19 cultures thus far negative follow place PICC today (3) Discitis of multiple sites of spine: T11-T12 L3-L4 seen by orthopedics spine - no surgical intervention at this time. continue IV antibiotic therapy. pain overall improving. (4) COPD (chronic obstructive pulmonary disease): Cont nebs prn. Desperately needs to quit smoking. Has prior h/o left-sided lung cancer s/p resection. (5) Current smoker: offered nicoderm patch - has declined this every day. counseled to quit. (6) Anemia: Fe studies, b12, folate - wnl. anemia of chronic disease? acute anemia due to infective endocarditis? s/p 2units PRBCs this admission. to have outpatient venofer infusions. (7) Chronic kidney disease, stage 3a: creatinine stable (8) Dyspnea: multifactorial - likely due to COPD, infective endocarditis, and previous episode of mucous plugging. the dyspnea got so severe earlier this stay that she had respiratory distress from such. dyspnea resolved and has not recurred. (9) Atrial fibrillation: PAF. NSR on monitoring. resume xarelto (had been held for port extraction). (10) Rheumatoid arthritis: quiescent at this time. not on disease modifying agents. (11) Psoas abscess, left: very small, about 1cm, treat with IV abx therapy. no apparent symptoms from such. (12) Left flank pain: CT abd/pelvis without any renal pathology. this is likely referred pain from her thoracic discitis. (13) Cognitive impairment: appears to have cognitive impairment. vs delirium vs depression masquerading as cognitive impairment. seems better today. (14) Essential (primary) hypertension: increase losartan to 50mg daily continue diltiazem (15) DVT prophylaxis: resume xarelto dispo - rehab at me Subjective tele stable overnight feels pretty good no abd pain no back pain no dyspnea no cough no fevers/ chills appetite poor - like previous visits she states "it's always like this" IS agreeable to rehab referral Review of Systems Constitutional: + anorexia; no fever, no chills and no fatigue Respiratory: no dyspnea Cardiovascular: no chest pain Gastrointestinal: no abdominal pain, no nausea and no vomiting Physical Exam Constitutional: + thin; no acute distress ENMT: external ear and nose normal, oropharynx normal Respiratory: normal respiratory effort, lungs clear to auscultation Auscultation: + diminished lung sounds (bases) Cardiovascular: Rate/Rhythm: regular rate and regular rhythm Heart Sounds: normal S1, normal S2 and + murmur (1/6 LSB) Vessels: posterior tibial pulses present and dorsalis pedis pulses present; no JVD Gastrointestinal (Abdomen): normal bowel sounds, soft, nontender, no hepatosplenomegaly Skin: former port site left upper chest clean Psychiatric: Orientation: alert Mood: + anxious mood Results & Data Vital Signs (Past 12 Hours) Vital Signs Temp Pulse Pulse Resp BP BP Pulse Ox 03/16/19 19:27 36.6 C 84 16 156/71 H 94 03/16/19 15:17 36.3 C L 71 16 134/73 97 03/16/19 11:09 36.4 C L 74 18 135/69 96 03/16/19 10:04 83 171/68 H Laboratory Results Laboratory Results - last 24 hr 03/15/19 03/16/19 03/16/19 06:48 05:49 05:49 WBC 7.78 RBC 4.05 L Hgb 11.1 L Hct 33.4 L MCV 82.5 MCH 27.4 MCHC 33.2 RDW Std Deviation 48.9 H RDW Coeff of Jose 16.1 H Plt Count 219 MPV 9.3 Sodium 136 Potassium 3.4 L Chloride 107 Carbon Dioxide 24 Anion Gap 5.0 BUN 14 Creatinine 0.69 Est Cr Clr Drug Dosing 48.8 Est GFR ( Amer) 99.4 Est GFR (Non-Af Amer) 85.8 BUN/Creatinine Ratio 19.7 Glucose 80 Calcium 7.9 L Total Protein (PEP) 6.2 Albumin (PEP) 2.4 L Gpnyj-5-Dxdwruvlm 0.6 H Zobut-1-Fgcjrsnub 0.8 Sjee-0-Hsuvenkj 0.4 Givs-8-Niyevrfo 0.3 Gamma Globulins 1.6 Monoclonal Peak 3 DNR Ser Monoclonl Protein DNR Ser Monoclonal Prot 2 DNR PEP Interpretation SEE NOTE Serum Immunofixation SEE NOTE (1) Rheumatoid arthritis Rheumatoid arthritis location: unspecified site Rheumatoid factor presence: unspecified presence Qualified Code(s): M06.9 - Rheumatoid arthritis, unspecified (2) Anemia Anemia type: iron deficiency Iron deficiency anemia type: unspecified iron deficiency Qualified Code(s): D50.9 - Iron deficiency anemia, unspecified (3) Infective endocarditis Chronicity: acute Infective endocarditis organism: bacterial Qualified Code(s): I33.0 - Acute and subacute infective endocarditis (4) Atrial fibrillation Atrial fibrillation type: unspecified Qualified Code(s): I48.91 - Unspecified atrial fibrillation (5) Dyspnea Dyspnea type: unspecified Qualified Code(s): R06.00 - Dyspnea, unspecified (6) COPD (chronic obstructive pulmonary disease) COPD type: unspecified COPD Qualified Code(s): J44.9 - Chronic obstructive pulmonary disease, unspecified
[2019-03-17] MEDS: AMPICILLIN 2,000 MG in SODIUM CHLOR 0.9% AD-VAN 100 ML IV SCH ×4 (02:20→19:36)
[2019-03-17] MEDS: ALPRAZolam 0.5 MG TABLET PO SCH (07:24)
[2019-03-17] MEDS: ACETAMINOPHEN 325 MG TAB PO PRN ×3 (07:24→21:08)
[2019-03-17] MEDS: dilTIAZem HCL 240 MG CAPCR PO SCH (07:25)
[2019-03-17] MEDS: LOSARTAN POTASSIUM 50 MG TAB PO SCH (07:25)
[2019-03-17] MEDS: POTASSIUM CHLORIDE 20 MEQ TABCR PO SCH ×2 (07:25→20:34)
[2019-03-17] MEDS: cefTRIAXone SODIUM 2,000 MG in DEXTROSE 5% 50 ML IV SCH ×2 (08:27→20:37)
--- NOTE | 2019-03-17 14:22 | Infectious Disease Progress Nt ---
Date of Service March 17, 2019 Assessment & Plan (1) Infective endocarditis: will continue on current abx, will need 6 weeks from first negative culture, 03/14 negative to date. suspect infected port/clot on port as source for infection, port now out. will need picc line. spoke with primary. will need follow up post d/c from hospital. (2) Gram positive sepsis: (3) Discitis of multiple sites of spine: Subjective 03/14 cultures remain negative, port tip culture +. tolerating abx. afebrile. no new am labs. Results & Data Vital Signs (Past 12 Hours) Vital Signs Temp Pulse Pulse Pulse Resp BP Pulse Ox 03/17/19 11:08 36.7 C 71 16 147/68 H 93 03/17/19 07:10 36.4 C L 73 18 172/66 H 96 03/17/19 03:41 36.7 C 77 18 159/66 H 94 03/17/19 03:04 76 Laboratory Results Microbiology 03/14/19 16:44 Catheter Tip, A-port Catheter Tip Culture - Preliminary Streptococcus species 03/11/19 07:36 Blood Blood Culture - Final Enterococcus faecalis 03/11/19 06:53 Blood Blood Culture - Final Enterococcus faecalis 03/13/19 08:50 Blood Blood Culture - Preliminary Enterococcus faecalis 03/13/19 09:00 Blood Blood Culture - Preliminary Enterococcus faecalis 03/14/19 11:10 Blood Blood Culture - Preliminary No growth to date. 03/14/19 10:24 Blood Blood Culture - Preliminary No growth to date. 03/12/19 06:28 Blood Blood Culture - Preliminary Enterococcus faecalis 03/12/19 06:12 Blood Blood Culture - Preliminary Enterococcus faecalis 03/11/19 00:21 Urine,Random Urine Culture - Final Enterococcus faecalis 03/10/19 12:11 Blood Blood Culture - Final Enterococcus faecalis 03/10/19 12:11 Blood Blood Culture - Final Enterococcus faecalis (1) Infective endocarditis Chronicity: acute Infective endocarditis organism: bacterial Qualified Code(s): I33.0 - Acute and subacute infective endocarditis
[2019-03-17] MEDS: RIVAROXABAN 20 MG TAB PO SCH (16:07)
[2019-03-17] MEDS ORDERED: SODIUM CHLORIDE 0.9% 500 ML IV SCH (16:30)
--- NOTE | 2019-03-17 16:44 | Cardiology Progress Note ---
Date of Service March 17, 2019 Assessment & Plan (1) Dyspnea: Asymptomatic currently. Initial dyspnea may be related to an element of mitral regurgitation. She appears to be well compensated currently does not require any specific medical therapy at this point. 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 Fortunately, her blood cultures have been negative now for a couple of days. Perhaps the S[place]-X-Axpg was the site of infection. Hopefully with the 6 weeks of antibiotic therapy prescribed she can sterilize the valves. She does have an element of mitral regurgitation previously characterized as moderate. Very little aortic regurgitation. I do not think she symptomatic from this standpoint. Repeat evaluation red valves in a couple of months would seem reasonable. (3) Atrial fibrillation: She has not had evidence of recurrent atrial arrhythmias since her discharge after surgery. She was seen on an outpatient basis and again had no definite recurrence of atrial fibrillation. Still at risk of recurrent arrhythmias given her comorbidities. Will keep her on telemetry this time. (4) Syncope: We can continue telemetry monitoring. It seems unlikely given the normal brain MRI that her endocarditis played any role in the syncope. Subjective This afternoon the patient claims to be feeling well. She still has an element of back pain at times. This appears to be worse when sleeping in her bed. She was ambulatory recently and did not report any symptoms associated with ambulation. She denies any breathing difficulty. No sense of dizziness or presyncope. Review of Systems Review of Systems: Per HPI Physical Exam Physical Exam: She is alert and oriented x3. Mood affect appear normal. She answered all questions appropriately. HEENT: Sclerae are anicteric. Pupils are equal and reactive to light and accommodation. Extraocular movements were intact. Neuro: Cranial nerves intact Neck: Examination of the submandibular region did not reveal any significant lymphadenopathy. Carotids are palpable bilaterally and free of bruits on auscultation. There was no evidence of jugular venous distention. The thyroid was not enlarged. Lungs: Lungs are clear to auscultation bilaterally. There are no rales wheezes or rhonchi. She has normal respiratory effort without use of accessory muscles. There is normal pulmonary excursion. Cardiac: The rhythm was regular. S1 and S2 were normal. Very soft holosystolic murmur. The PMI was not markedly displaced on palpation. Abdomen: The abdomen was soft and nontender. Extremities: Patient has bilateral radial pulses that are equal in intensity. There is no evidence cyanosis or clubbing. There was no evidence of significant peripheral edema bilaterally. Skin: There are no rashes noted on examination today. Results & Data Vital Signs (Past 12 Hours) Vital Signs Temp Pulse Pulse Resp BP BP Pulse Ox 03/17/19 15:10 36.3 C L 72 18 154/73 H 92 03/17/19 11:08 36.7 C 71 16 147/68 H 93 03/17/19 07:10 36.4 C L 73 18 172/66 H 96 Laboratory Results Abnormal Lab Results 03/15/19 06:48 Total Protein (PEP) 6.2 Albumin (PEP) 2.4 L Altah-9-Yvulrsmpj 0.6 H Luswl-7-Royslpcnw 0.8 Kdyg-3-Jjisgzou 0.4 Anbs-8-Dnbhjvrf 0.3 Gamma Globulins 1.6 Monoclonal Peak 3 DNR Ser Monoclonl Protein DNR Ser Monoclonal Prot 2 DNR PEP Interpretation SEE NOTE Serum Immunofixation SEE NOTE ECG Additional Comments: No significant arrhythmias on telemetry (1) Dyspnea Dyspnea type: unspecified Qualified Code(s): R06.00 - Dyspnea, unspecified (2) Atrial fibrillation Atrial fibrillation type: unspecified Qualified Code(s): I48.91 - Unspecified atrial fibrillation
--- NOTE | 2019-03-17 21:33 | Hospitalist Progress Note ---
Date of Service March 17, 2019 Assessment & Plan (1) Infective endocarditis: MV and AV. Fortunately valve function is relatively intact. LV function preserved. Pathogen - enterococcus. Source for septicemia/endocarditis - PORT. s/p removal by Dr Dumas -- POD #3. P All cultures were positive for enterococcus however her 03/14 blood cultures are still NEGATIVE suggesting sterility. Port tip culture pending but thus far showing streptococcus. Appreciate ID and gen surg along w/ cardiology consultations. Cont IV amp and rocephin x 6 weeks. PICC line attempted today but veins too small for placement. Will hydrate overnight with NS; picc line team to attempt again tomorrow. Tele has been stable since admission -- will d/c tele, allow her to go to med/surg. (2) Septicemia due to enterococcus: see above in "infective endocarditis." 03/14/[address] PICC (3) Discitis of multiple sites of spine: T11-T12 L3-L4 seen by orthopedics spine - no surgical intervention. pain controlled/resolved. continue IV antibiotic therapy. (4) COPD (chronic obstructive pulmonary disease): Cont nebs prn. Desperately needs to quit smoking. Has prior h/o left-sided lung cancer s/p resection. (5) Current smoker: offered nicoderm patch - has declined this every day. counseled to quit. (6) Anemia: Fe studies, b12, folate - wnl. anemia of chronic disease? acute anemia due to infective endocarditis? s/p 2units PRBCs earlier this admission. to have outpatient venofer infusions. CBC every 2-3 days for stability. (7) Chronic kidney disease, stage 3a: creatinine stable (8) Dyspnea: multifactorial - likely due to COPD, infective endocarditis, and previous episode of mucous plugging. dyspnea resolved and has not recurred. (9) Atrial fibrillation: PAF. NSR on monitoring this entire stay. continue xarelto. (10) Rheumatoid arthritis: quiescent at this time. not on disease modifying agents. (11) Psoas abscess, left: very small, about 1cm on last imaging, treat with IV abx therapy. no apparent symptoms from such. (12) Left flank pain: CT abd/pelvis without any renal pathology. this was likely referred pain from her thoracic discitis. now resolved. (13) Cognitive impairment: question of cognitive impairment at baseline. suspect she had metabolic encephalopathy/delirium in midst of septicemia. mentation is MUCH improved over last 3-4 days. continue to follow. (14) Essential (primary) hypertension: cont increased dose of losartan continue diltiazem adjust again if needed (15) DVT prophylaxis: xarelto dispo - rehab at [place] - [facility]? other? d/c tele move to med/surg Subjective telemetry normal overnight denies any complaints -- no back pain, cp, dyspnea, abd pain eating fair at best Review of Systems Constitutional: no fever and no chills Respiratory: no cough and no dyspnea Cardiovascular: no chest pain Gastrointestinal: no abdominal pain, no nausea and no vomiting Physical Exam Constitutional: + thin; no acute distress ENMT: external ear and nose normal, oropharynx normal Respiratory: normal respiratory effort, lungs clear to auscultation Cardiovascular: Rate/Rhythm: regular rate and regular rhythm Heart Sounds: normal S1, normal S2 and + murmur (2/6 LLSB) Vessels: posterior tibial pulses present and dorsalis pedis pulses present; no JVD Gastrointestinal (Abdomen): normal bowel sounds, soft, nontender, no hepatosplenomegaly Musculoskeletal: no tenderness to palpation over t-spine or l-spine Psychiatric: Orientation: alert Mood: + anxious mood Results & Data Vital Signs (Past 12 Hours) Vital Signs Temp Pulse Pulse Resp BP BP Pulse Ox 03/17/19 18:12 36.4 C 78 16 160/63 H 95 03/17/19 15:10 36.3 C L 72 18 154/73 H 92 03/17/19 11:08 36.7 C 71 16 147/68 H 93 (1) Rheumatoid arthritis Rheumatoid arthritis location: unspecified site Rheumatoid factor presence: unspecified presence Qualified Code(s): M06.9 - Rheumatoid arthritis, unspecified (2) Anemia Anemia type: iron deficiency Iron deficiency anemia type: unspecified iron deficiency Qualified Code(s): D50.9 - Iron deficiency anemia, unspecified (3) Infective endocarditis Chronicity: acute Infective endocarditis organism: bacterial Qualified Code(s): I33.0 - Acute and subacute infective endocarditis (4) Atrial fibrillation Atrial fibrillation type: unspecified Qualified Code(s): I48.91 - Unspecified atrial fibrillation (5) Dyspnea Dyspnea type: unspecified Qualified Code(s): R06.00 - Dyspnea, unspecified (6) COPD (chronic obstructive pulmonary disease) COPD type: unspecified COPD Qualified Code(s): J44.9 - Chronic obstructive pulmonary disease, unspecified
[2019-03-18] MEDS: AMPICILLIN 2,000 MG in SODIUM CHLOR 0.9% AD-VAN 100 ML IV SCH ×4 (01:24→19:54)
[2019-03-18 06:58] LABS: BUN Creatinine Ratio 20.3 (10-20); Calcium 8.1 mg/dl (8.5-10.1); Est GFR (African American) 100.9; Magnesium 2.2 mg/dl (1.8-2.4); Potassium 4.1 mmol/L (3.5-5.1)
[2019-03-18] MEDS: ACETAMINOPHEN 325 MG TAB PO PRN ×2 (08:40→13:15)
[2019-03-18] MEDS: cefTRIAXone SODIUM 2,000 MG in DEXTROSE 5% 50 ML IV SCH ×2 (09:20→21:21)
[2019-03-18] MEDS: LOSARTAN POTASSIUM 50 MG TAB PO SCH (09:21)
[2019-03-18] MEDS: dilTIAZem HCL 240 MG CAPCR PO SCH (09:21)
[2019-03-18] MEDS: ALPRAZolam 0.5 MG TABLET PO SCH (09:21)
[2019-03-18] MEDS: TRAMADOL HCL 50 MG TABLET PO PRN (14:45)
[2019-03-18] MEDS: RIVAROXABAN 20 MG TAB PO SCH (16:37)
--- NOTE | 2019-03-18 21:20 | Hospitalist Progress Note ---
Date of Service March 18, 2019 Assessment & Plan (1) Infective endocarditis: MV and AV. Pathogen - enterococcus. Source for septicemia/endocarditis - PORT. s/p removal by Dr Dumas -- POD #4. All cultures were positive for enterococcus however her 03/14 blood cultures are still NEGATIVE suggesting sterility. Port tip culture has grown enterococcus confirming the PORT was indeed the source for her bacteremia/endocarditis/etc. Appreciate ID and gen surg along w/ cardiology consultations. Cont IV amp and rocephin x 6 weeks. First day 03/14/19. Unfortunately, despite multiple attempts by PICC line team on 2 days, her veins are too small for PICC. I spoke with Dr Brar who can place a central line on THURSDAY of this coming week for long-term IV abx. NPO after MN on Thursday evening. Patient aware of plan of care. Present on Admission?: Yes (2) Septicemia due to enterococcus: see above in "infective endocarditis." 03/14/19 cultures thus far negative needs central line for long-term abx (3) Discitis of multiple sites of spine: T11-T12 L3-L4 seen by orthopedics spine earlier this admission - no surgical intervention. continue IV antibiotic therapy. pain resolved. (4) COPD (chronic obstructive pulmonary disease): Cont nebs prn. Desperately needs to quit smoking. Has prior h/o left-sided lung cancer s/p resection. (5) Current smoker: offered nicoderm patch - has declined this every day. counseled to quit. (6) Anemia: Fe studies, b12, folate - wnl. suspect anemia due to infective endocarditis. s/p 2 units PRBCs this admission. to have outpatient venofer infusions. cbc in am for stability. (7) Chronic kidney disease, stage 3a: creatinine continues to be stable (8) Atrial fibrillation: PAF. NSR on prior CV monitoring. xarelto for anticoagulation. (9) Rheumatoid arthritis: quiescent at this time. not on disease modifying agents. 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 continue to treat with IV abx therapy. no apparent symptoms from such. (11) Cognitive impairment: per discussions w/ her family she may have early, mild cognitive impairment. probably had metabolic encephalopathy earlier in the stay along with significant anxiety -- both improved. continue to monitor. her MRI brain this admission was negative for septic emboli. (12) Essential (primary) hypertension: continue diltiazem continue losartan BPs still high -- will increase losartan again (13) DVT prophylaxis: sergio darin updated at bedside today line placement THURSDAY dispo -[facility]? early this week? Subjective patient resting comfortably during my bedside rounds. nephew was visiting. she denied any complaints. unfortunately PICC line could not be placed despite attempts again; veins still too small for placement. patient IS willing to go to rehab - referral sent to [facility] today. no other new issues. Review of Systems Constitutional: + fatigue; no fever Respiratory: no cough, no dyspnea and no dyspnea on exertion Cardiovascular: no chest pain and no edema Gastrointestinal: no abdominal pain, no nausea, no vomiting and no diarrhea/loose stools Physical Exam Constitutional: + thin; no acute distress ENMT: external ear and nose normal, oropharynx normal Respiratory: normal respiratory effort, lungs clear to auscultation Cardiovascular: Rate/Rhythm: regular rate and regular rhythm Heart Sounds: normal S1, normal S2 and + murmur (2/6 LLSB) Vessels: posterior tibial pulses present and dorsalis pedis pulses present; no JVD Extremities: no edema Gastrointestinal (Abdomen): normal bowel sounds, soft, nontender, no hepatosplenomegaly Psychiatric: Orientation: alert and oriented x 3 Mood: + depressed mood (like prior visits - tearful) and + anxious mood Results & Data Vital Signs (Past 12 Hours) Vital Signs Temp Pulse Resp BP Pulse Ox 03/18/19 14:45 36.3 C L 72 18 146/75 H 95 Laboratory Results Laboratory Results - last 24 hr 03/14/19 03/18/19 08:13 05:39 Sodium 137 Potassium 4.1 D Chloride 111 H Carbon Dioxide 22 Anion Gap 4.0 BUN 13 Creatinine 0.66 Est Cr Clr Drug Dosing 51.0 Est GFR ( Amer) 100.9 Est GFR (Non-Af Amer) 87.0 BUN/Creatinine Ratio 20.3 H Glucose 85 Calcium 8.1 L Magnesium 2.2 B12 Unsatur Binding Cap 1864 H (1) Rheumatoid arthritis Rheumatoid arthritis location: unspecified site Rheumatoid factor presence: unspecified presence Qualified Code(s): M06.9 - Rheumatoid arthritis, unspecified (2) Anemia Anemia type: iron deficiency Iron deficiency anemia type: unspecified iron deficiency Qualified Code(s): D50.9 - Iron deficiency anemia, unspecified (3) Infective endocarditis Chronicity: acute Infective endocarditis organism: bacterial Qualified Code(s): I33.0 - Acute and subacute infective endocarditis (4) Atrial fibrillation Atrial fibrillation type: unspecified Qualified Code(s): I48.91 - Unspecified atrial fibrillation (5) COPD (chronic obstructive pulmonary disease) COPD type: unspecified COPD Qualified Code(s): J44.9 - Chronic obstructive pulmonary disease, unspecified
[2019-03-19] MEDS: TRAMADOL HCL 50 MG TABLET PO PRN ×2 (00:02→22:16)
[2019-03-19] MEDS: AMPICILLIN 2,000 MG in SODIUM CHLOR 0.9% AD-VAN 100 ML IV SCH ×4 (02:02→20:36)
[2019-03-19] MEDS: ACETAMINOPHEN 325 MG TAB PO PRN ×2 (06:40→16:29)
[2019-03-19 07:36] LABS: Basophils # (auto) 0.03 K/uL (0-0.2); Basophils % (auto) 0.4 %; Eosinophils # (auto) 0.09 K/uL (0-0.5); Eosinophils % (auto) 1.1 %; Hematocrit (blood only) 31.8 % (37-47); Hemoglobin 10.6 g/dL (12.0-16.0); Immature Granulocytes # (auto) 0.03 K/uL (0.00-0.02); Immature Granulocytes % (auto) 0.4 %; Lymphocytes # (auto) 1.13 K/uL (1.2-3.4); Lymphocytes % (auto) 13.5 %; Mean Corpuscular Hgb Conc 33.3 g/dL (32-36); Mean Corpuscular Volume 83.5 fL (80-100); Mean Platelet Volume 8.7 fL (7.4-10.4); Monocytes # (auto) 0.48 K/uL (0.11-0.59); Monocytes % (auto) 5.7 %; Neutrophils # (auto) 6.62 K/uL (1.4-6.5); Neutrophils % (auto) 78.9 %; Platelet Count 218 K/uL (130-400); RDW Coefficient of Variation 15.7 % (11.5-14.5); RDW Standard Deviation 48.3 fL (36.4-46.3); Red Blood Count 3.81 M/uL (4.2-5.4); White Blood Count 8.38 K/uL (4.8-10.8)
[2019-03-19 08:07] LABS: Est GFR (African American) 99.4; Est GFR (Non-African American) 85.8
[2019-03-19 08:08] LABS: Creatinine Clr Calc Pharmacy 48.8 ml/min
[2019-03-19] MEDS: LACTOBACILLUS ACIDOPHILUS (FLORANEX) TAB PO SCH ×3 (08:44→16:30)
[2019-03-19] MEDS: ALPRAZolam 0.5 MG TABLET PO SCH (08:51)
[2019-03-19] MEDS: dilTIAZem HCL 240 MG CAPCR PO SCH (08:53)
[2019-03-19] MEDS ORDERED: LOSARTAN POTASSIUM 50 MG TAB PO SCH (09:00)
[2019-03-19] MEDS: cefTRIAXone SODIUM 2,000 MG in DEXTROSE 5% 50 ML IV SCH ×2 (09:26→21:30)
--- NOTE | 2019-03-19 12:33 | Hospitalist Progress Note ---
Date of Service March 19, 2019 Assessment & Plan (1) Infective endocarditis: MV and AV. Pathogen -Enterococcus faecalis Source for septicemia/endocarditis - PORT. Her urine culture was also positive for Enterococcus faecalis but infectious disease thinks this is due to high burden of bloodstream infection and not a true UTI as the source s/p removal by Dr Dumas -- POD #5. Needs to have her sutures removed from the previous port site on March 24 All cultures were positive for enterococcus however her 03/14 blood cultures are still NEGATIVE suggesting sterility. Port tip culture has grown enterococcus confirming the PORT was indeed the source for her bacteremia/endocarditis/etc. Appreciate ID and gen surg along w/ cardiology consultations. Cont IV amp and rocephin x 6 weeks from the time of the first negative blood culture which was on 03/14/19. This would put her end date for antibiotics at April 24 Unfortunately, despite multiple attempts by PICC line team on 2 days, her veins are too small for PICC. Plans for vascular surgery Dr Brar to place a central line on THURSDAY of this coming week for long-term IV abx. NPO after MN on Thursday evening. - will hold Xarelto prior to that Patient aware of plan of care. (2) Septicemia due to enterococcus: see above in "infective endocarditis." 03/14/19 cultures thus far negative needs central line for long-term abx (3) Discitis of multiple sites of spine: T11-T12 L3-L4 seen by orthopedics spine earlier this admission - no surgical intervention. continue IV antibiotic therapy. pain resolved. (4) COPD (chronic obstructive pulmonary disease): Cont nebs prn. Desperately needs to quit smoking. Has prior h/o left-sided lung cancer s/p resection. (5) Current smoker: offered nicoderm patch - has declined this every day. counseled to quit. (6) Anemia: Fe studies, b12, folate - wnl. Hemoccult is positive suspect anemia due to infective endocarditis and chronic disease, in addition to chronic GI blood loss in the setting of being on Xarelto Seen by hematology and do not suspect MDS SPEP consistent with acute phase reactant s/p 2 units PRBCs this admission. -Plan to have outpatient venofer infusions. -Hemoglobin remained stable since last transfusion and is at 10.6 -Follow CBC -Has planned EGD and colonoscopy as an outpatient which will now need to be pushed back due to ongoing infection (7) Chronic kidney disease, stage 3a: creatinine continues to be stable (8) Atrial fibrillation: PAF. NSR on prior CV monitoring. Continue Xarelto for anticoagulation. (9) Rheumatoid arthritis: quiescent at this time. not on disease modifying agents. 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 continue to treat with IV abx therapy. no apparent symptoms from such. (11) Cognitive impairment: per discussions w/ her family she may have early, mild cognitive impairment. probably had metabolic encephalopathy earlier in the stay along with significant anxiety -- both improved. continue to monitor. her MRI brain this admission was negative for septic emboli. (12) Essential (primary) hypertension: Blood pressure remains elevated -Continue diltiazem -Continue increased dose of losartan and increase again in the morning to 100 mg (13) DVT prophylaxis: Inna webster updated at bedside today line placement THURSDAY dispo -hopeful for discharge to acute rehab after catheter placement on Thursday Encouraged ambulation Subjective Patient reports feeling well today. She has no chest pain or shortness of breath. No abdominal pain or diarrhea. She has no pain at the site of her port removal. She has been ambulating in the room without difficulty. She reports her back pain is significantly improved, denies radiating pain down the legs Review of Systems Review of Systems: All systems reviewed & are unremarkable except as noted in HPI & below Physical Exam Constitutional: WD/WN, vitals as above Eyes: PERRL, conjunctivae normal, anicteric sclerae ENMT: Ears: no hearing impairment Neck: trachea midline, no thyromegaly Respiratory: normal respiratory effort, lungs clear to auscultation normal respiratory effort Cardiovascular: Rate/Rhythm: regular rate and regular rhythm Heart Sounds: + murmur (1/6 at the apex) Vessels: no JVD Extremities: no edema Chest (Breasts): Chest: + abnormal inspection of chest (Left upper anterior chest wall with dressing in place clean dry and intact) Gastrointestinal (Abdomen): normal bowel sounds, soft, nontender, no hepatosplenomegaly Musculoskeletal: Extremities: strength 5/5 throughout and + clubbing (Of the fingers); no cyanosis Skin: + rash (Petechial rash over the bilateral legs almost completely resolved, several [place] lesions on the hands, no splinter hemorrhages) Neurologic: moves all extremities and awake; no focal motor deficits Psychiatric: Orientation: alert, oriented x 3 and cooperative Eye Contact: good eye contact Results & Data Vital Signs (Past 12 Hours) Vital Signs Temp Pulse Resp BP Pulse Ox 03/19/19 07:05 36.3 C L 86 16 165/75 H 96 Laboratory Results 03/19/19 03/19/19 03/19/19 Range/Units 07:06 07:06 07:06 WBC 8.38 (4.8-10.8) K/uL RBC 3.81 L (4.2-5.4) M/uL Hgb 10.6 L (12.0-16.0) g/dL Hct 31.8 L (37-47) % MCV 83.5 (80-100) fL MCH 27.8 (25-34) pg MCHC 33.3 (32-36) g/dL RDW Std Deviation 48.3 H (36.4-46.3) fL RDW Coeff of Jose 15.7 H (11.5-14.5) % Plt Count 218 (130-400) K/uL MPV 8.7 (7.4-10.4) fL Immature Gran % (Auto) 0.4 % Neut % (Auto) 78.9 % Lymph % (Auto) 13.5 % [place] % (Auto) 5.7 % Eos % (Auto) 1.1 % Baso % (Auto) 0.4 % Immature Gran # (Auto) 0.03 H (0.00-0.02) K/uL Neut # (Auto) 6.62 H (1.4-6.5) K/uL Lymph # (Auto) 1.13 L (1.2-3.4) K/uL [place] # (Auto) 0.48 (0.11-0.59) K/uL Eos # (Auto) 0.09 (0-0.5) K/uL Baso # (Auto) 0.03 (0-0.2) K/uL ESR > 90 H (0-21) mm/hr Creatinine 0.69 (0.6-1.2) mg/dl Est Cr Clr Drug Dosing 48.8 ml/min Est GFR ( Amer) 99.4 Est GFR (Non-Af Amer) 85.8 Blood cultures from 03/14 remain no growth to date Cultures from port are growing Enterococcus faecalis (1) Rheumatoid arthritis Rheumatoid arthritis location: unspecified site Rheumatoid factor presence: unspecified presence Qualified Code(s): M06.9 - Rheumatoid arthritis, unspecified (2) Anemia Anemia type: iron deficiency Iron deficiency anemia type: unspecified iron deficiency Qualified Code(s): D50.9 - Iron deficiency anemia, unspecified (3) Infective endocarditis Chronicity: acute Infective endocarditis organism: bacterial Qualified Code(s): I33.0 - Acute and subacute infective endocarditis (4) Atrial fibrillation Atrial fibrillation type: unspecified Qualified Code(s): I48.91 - Unspecified atrial fibrillation (5) COPD (chronic obstructive pulmonary disease) COPD type: unspecified COPD Qualified Code(s): J44.9 - Chronic obstructive pulmonary disease, unspecified
[2019-03-19] MEDS: RIVAROXABAN 20 MG TAB PO SCH (16:30)
[2019-03-20] MEDS: AMPICILLIN 2,000 MG in SODIUM CHLOR 0.9% AD-VAN 100 ML IV SCH ×4 (02:20→19:45)
[2019-03-20] MEDS: LACTOBACILLUS ACIDOPHILUS (FLORANEX) TAB PO SCH ×3 (08:00→17:47)
[2019-03-20] MEDS: LOSARTAN POTASSIUM 50 MG TAB PO SCH (08:00)
[2019-03-20] MEDS: dilTIAZem HCL 240 MG CAPCR PO SCH (08:01)
[2019-03-20] MEDS: ACETAMINOPHEN 325 MG TAB PO PRN ×3 (08:04→23:44)
[2019-03-20] MEDS: ALPRAZolam 0.5 MG TABLET PO SCH (08:04)
[2019-03-20] MEDS: cefTRIAXone SODIUM 2,000 MG in DEXTROSE 5% 50 ML IV SCH ×2 (08:43→21:01)
--- NOTE | 2019-03-20 09:35 | Consultation ---
Date of Consultation March 20, 2019 Assessment & Plan (1) Poor venous access: Patient is scheduled for a tunneled central venous catheter tomorrow. I have discussed the risks options and benefits of the procedure with the patient. The patient understands the risks options and benefits and agrees to the procedure. History of Present Illness Reason for Consultation: Lack of venous access Attending Physician: Kyara Meehan MD History of Present Illness This is a 74-year-old white female who was admitted with sepsis. She had a an infected port removed.Since then her blood cultures have been negative. She is in need of An access for IV antibiotics for6-week course. Allergies Allergy/AdvReac Type Severity Reaction Status Date / Time No Known Allergies Allergy Verified 03/04/19 08:56 Home Medications Home Medications Medication Instructions Recorded Confirmed Type Xarelto 20 mg PO DAILY 12/14/18 03/10/19 History alprazolam 0.5 mg PO DAILY 12/14/18 03/10/19 History ascorbic acid (vitamin C) [Vitamin 500 mg PO DAILY 12/14/18 03/10/19 History C] benzonatate 100 mg PO TID PRN 12/14/18 03/10/19 History cholecalciferol (vitamin D3) 5,000 unit PO DAILY 12/14/18 03/10/19 History [Vitamin D3] diltiazem HCl 240 mg PO DAILY 12/14/18 03/10/19 History docusate sodium [Colace] 100 mg PO BID PRN 12/14/18 03/10/19 History echinacea 500 mg PO DAILY PRN 12/14/18 03/10/19 History Fluid Pill 1 dose PO DIRECTED 03/10/19 03/10/19 History acetaminophen 500 - 1,000 mg PO Q6H PRN 03/10/19 03/10/19 History tramadol 50 mg PO DAILY 03/10/19 03/10/19 History Patient History Medical History Arthritis (Chronic) Atrial fibrillation with RVR Lung cancer COPD (chronic obstructive pulmonary disease) Mitral regurgitation Surgical History S/P lobectomy of lung LLL, in 09/2017 Family History Father Hypertension Social History Preferred Language: [place] Communication Ability: Effective Visual Impairment: No Limitations Hearing Ability: Normal Honest [employer] Member Required: No Beliefs That Will Affect Care: None Current Living Situation: Alone Other Information That Helps Us Care for You: No Feels Safe at Home: Yes Safety Concerns: Feels Safe At This Time Smoking Status: Current every day smoker Tobacco Type: cigarettes Cigarettes Per Day: 10-20 Do You Dip or Chew Tobacco: No Second Hand Exposure: No Tobacco Cessation Education Requested by Patient: No Hx Alcohol Use: No Hx Substance Use: No Review of Systems Review of Systems: All systems reviewed & are unremarkable except as noted in HPI & below Physical Exam Constitutional: WD/WN, vitals as above Respiratory: normal respiratory effort, lungs clear to auscultation Cardiovascular: RRR, no murmur, no edema Gastrointestinal (Abdomen): Inspection/Auscultation: abdomen normal to inspection Percussion/Palpation: abdomen soft; abdomen nontender Musculoskeletal: Extremities: extremities normal to inspection Skin: no rashes, warm and dry Neurologic: CN's II-XI intact bilaterally Motor/Sensory: normal movement and no sensory deficit Psychiatric: Orientation: alert and oriented x 3 Results & Data Vital Signs (Past 12 Hours) Vital Signs Temp Pulse Resp BP BP Pulse Ox 03/20/19 07:16 36.7 C 89 16 160/66 H 92 03/19/19 22:34 36.5 C 80 18 171/72 H 92
--- NOTE | 2019-03-20 13:21 | Hospitalist Progress Note ---
Date of Service March 20, 2019 Assessment & Plan (1) Infective endocarditis: MV and AV. Pathogen -Enterococcus faecalis Source for septicemia/endocarditis - PORT. Her urine culture was also positive for Enterococcus faecalis but infectious disease thinks this is due to high burden of bloodstream infection and not a true UTI as the source s/p removal by Dr Dumas -- POD #6. Needs to have her sutures removed from the previous port site on March 24 All cultures were positive for enterococcus however her 03/14 blood cultures are still NEGATIVE suggesting sterility. Port tip culture has grown enterococcus confirming the PORT was indeed the source for her bacteremia/endocarditis/etc. Appreciate ID and gen surg along w/ cardiology consultations. Cont IV amp and rocephin x 6 weeks from the time of the first negative blood culture which was on 03/14/19. This would put her end date for antibiotics at April 24 Unfortunately, despite multiple attempts by PICC line team on 2 days, her veins are too small for PICC. Plans for vascular surgery Dr Brar to place a central line on THURSDAY of this coming week for long-term IV abx. NPO after MN on Thursday evening. - will hold Xarelto Patient aware of plan of care. (2) Septicemia due to enterococcus: see above in "infective endocarditis." 03/14/19 cultures thus far negative needs central line for long-term abx (3) Discitis of multiple sites of spine: T11-T12 L3-L4 seen by orthopedics spine earlier this admission - no surgical intervention. continue IV antibiotic therapy. pain resolved. (4) COPD (chronic obstructive pulmonary disease): Cont nebs prn. Desperately needs to quit smoking. Has prior h/o left-sided lung cancer s/p resection. (5) Current smoker: offered nicoderm patch - has declined this every day. counseled to quit. (6) Anemia: Fe studies, b12, folate - wnl. Hemoccult is positive suspect anemia due to infective endocarditis and chronic disease, in addition to chronic GI blood loss in the setting of being on Xarelto Seen by hematology and do not suspect MDS SPEP consistent with acute phase reactant s/p 2 units PRBCs this admission. -Plan to have outpatient venofer infusions. -Hemoglobin remained stable since last transfusion and is at 10.6 -Follow CBC -Has planned EGD and colonoscopy as an outpatient which will now need to be pushed back due to ongoing infection (7) Chronic kidney disease, stage 3a: creatinine continues to be stable (8) Atrial fibrillation: PAF. NSR on prior CV monitoring. Continue Xarelto for anticoagulation, but on hold for procedure tomorrow . (9) Rheumatoid arthritis: quiescent at this time. not on disease modifying agents. 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 continue to treat with IV abx therapy. no apparent symptoms from such. (11) Cognitive impairment: per discussions w/ her family she may have early, mild cognitive impairment. probably had metabolic encephalopathy earlier in the stay along with significant anxiety -- both improved. continue to monitor. her MRI brain this admission was negative for septic emboli. (12) Essential (primary) hypertension: Blood pressure remains elevated despite increased dose of losartan -Continue diltiazem 240mg daily -Continue increased dose of losartan 100 mg -add prn IV hydralazine while NPO tonight -then will likely add HCTZ 25mg daily after surgery tomorrow if BPs still high (13) DVT prophylaxis: Xarelto- on hold for 03/20 Dispo -hopeful for discharge to acute rehab after catheter placement on Thursday Encouraged ambulation Subjective pt has no complaints, says she feels "great." Is excited about prospect of leaving the hospital soon. No CP or OSB, no abd pain, no diarrhea. Review of Systems Review of Systems: All systems reviewed & are unremarkable except as noted in HPI & below Physical Exam Constitutional: WD/WN, vitals as above Eyes: PERRL, conjunctivae normal, anicteric sclerae ENMT: Ears: no hearing impairment Neck: trachea midline, no thyromegaly Respiratory: normal respiratory effort, lungs clear to auscultation Cardiovascular: Rate/Rhythm: regular rate and regular rhythm Heart Sounds: + murmur (1/6 at the apex) Vessels: no JVD Extremities: no edema Chest (Breasts): Chest: + abnormal inspection of chest (Left upper anterior chest wall with dressing in place clean dry and intact) Gastrointestinal (Abdomen): normal bowel sounds, soft, nontender, no hepatosplenomegaly Neurologic: moves all extremities and awake; no focal motor deficits Psychiatric: Orientation: alert, oriented x 3 and cooperative Eye Contact: good eye contact Results & Data Vital Signs (Past 12 Hours) Vital Signs Temp Pulse Resp BP Pulse Ox 03/20/19 07:16 36.7 C 89 16 160/66 H 92 (1) Rheumatoid arthritis Rheumatoid arthritis location: unspecified site Rheumatoid factor presence: unspecified presence Qualified Code(s): M06.9 - Rheumatoid arthritis, unspecified (2) Anemia Anemia type: iron deficiency Iron deficiency anemia type: unspecified iron deficiency Qualified Code(s): D50.9 - Iron deficiency anemia, unspecified (3) Infective endocarditis Chronicity: acute Infective endocarditis organism: bacterial Qualified Code(s): I33.0 - Acute and subacute infective endocarditis (4) Atrial fibrillation Atrial fibrillation type: unspecified Qualified Code(s): I48.91 - Unspecified atrial fibrillation (5) COPD (chronic obstructive pulmonary disease) COPD type: unspecified COPD Qualified Code(s): J44.9 - Chronic obstructive pulmonary disease, unspecified
[2019-03-20] MEDS: TRAMADOL HCL 50 MG TABLET PO PRN (19:44)
[2019-03-21] MEDS ORDERED: HydrALAZINE HCL 20 MG/ML VIAL IV PRN (00:42)
[2019-03-21] MEDS: AMPICILLIN 2,000 MG in SODIUM CHLOR 0.9% AD-VAN 100 ML IV SCH ×3 (01:56→15:04)
[2019-03-21] MEDS: LOSARTAN POTASSIUM 50 MG TAB PO SCH (07:52)
[2019-03-21] MEDS: ALPRAZolam 0.5 MG TABLET PO SCH (07:52)
[2019-03-21] MEDS: dilTIAZem HCL 240 MG CAPCR PO SCH (07:52)
[2019-03-21] MEDS: LACTOBACILLUS ACIDOPHILUS (FLORANEX) TAB PO SCH ×3 (07:53→18:53)
[2019-03-21] MEDS: cefTRIAXone SODIUM 2,000 MG in DEXTROSE 5% 50 ML IV SCH (08:24)
--- NOTE | 2019-03-21 09:35 | Progress Note ---
DATE: 03/21/2019 HEMATOLOGY PROGRESS NOTE DIAGNOSES: 1. Infective endocarditis. 2. Septicemia attributable to enterococcus. 3. Diskitis. 4. Chronic anemia, perhaps attributable to chronic disease, chronic kidney disease. 5. Rheumatoid arthritis. 6. Essential hypertension. HISTORY OF PRESENT ILLNESS: Veronica is a pleasant 74-year-old female patient of Dr. Cheek who has been admitted well over a week with infective endocarditis, receiving broad spectrum antimicrobials. According to nursing and Veronica herself are having trouble gaining good IV access. Vascular surgery has been consulted and will place a central line under anesthesia today. Nursing reports Veronica is close to discharge, perhaps going to [facility]. Followed up on some of the anemia parameters, which were drawn early last week. Veronica's iron is clearly low, suggestive of an underlying iron deficiency/anemia of chronic disease. Therefore, may benefit from single dose of iron sucrose. She otherwise feels well and is quite anxious to be discharged. OBJECTIVE: GENERAL: The patient is a pleasant 74-year-old, awake, alert and appropriate, in no acute distress. VITAL SIGNS: Temperature 36.4, pulse 87, respiratory rate 18, blood pressure ____/67. SKIN: Without rash or lesion. HEENT: Oral mucosa without erythema or ulceration. NECK: Supple. Trachea is midline. HEART: Regular rate and rhythm. LUNGS: Clear to auscultation bilaterally. ABDOMEN: Soft, nontender, nondistended. EXTREMITIES: No clubbing, cyanosis or edema. NEUROLOGIC: Grossly intact. LABORATORY DATA: From 03/19, WBC count 8380, hemoglobin 10.6, platelet count 218,000. Serum protein electrophoresis with immunofixation had revealed acute phase reactant with no evidence of monoclonality. The patient's iron level measured 31 on 03/14, TIBC measured 202 on the same day and lastly ferritin measured 61.8. IMPRESSION: 1. Infective endocarditis. 2. Anemia of chronic disease. 3. Enterococcus bacteremia. 4. Non-small cell lung cancer stage IIB. PLAN: I stopped by to see Veronica in a little over a week since her initial consultation for anemia that I believe was most likely due to chronic disease versus renal insufficiency. I did not think that she required bone marrow biopsy and aspiration at this time. I did take a note of her most recent iron studies and clearly she is mildly deficient. It might be helpful to go ahead and give her a single dose of iron sucrose before she is discharged to [facility]. She is due to see Dr. Taylor as an outpatient here in the next month or so. I would just keep that appointment. She is quite anxious to have her central line placed and be discharged to [facility] as per nursing staff. From a hematologic standpoint, we will officially sign off as I have nothing further to add at present. Thank you for allowing us to participate in Veronica's care. NAMAN
--- NOTE | 2019-03-21 11:10 | Infectious Disease Progress Nt ---
Date of Service March 21, 2019 Assessment & Plan (1) Infective endocarditis: will continue on current abx, will need 6 weeks from first negative culture, 03/14 negative to date. suspect infected port/clot on port as source for infection, port now out. will need access then cleared for D/C from ID standpoint. will need weekly cbc, cmp, esr while on abx. can follow with ID post d/c. (2) Gram positive sepsis: (3) Discitis of multiple sites of spine: Subjective pt unable to undergo picc due to vessel size, vascular eval noted, for tunneled line today. 03/14 cutlures negative and final x 2. remains on amp and ctx for AV and MV IE. afebrile. Results & Data Vital Signs (Past 12 Hours) Vital Signs Temp Pulse Resp BP Pulse Ox 03/21/19 07:06 36.4 C L 87 18 191/67 H 96 03/21/19 05:19 169/67 H 03/21/19 01:46 187/66 H 03/20/19 23:40 36.3 C L 86 18 191/65 H 94 Laboratory Results Microbiology 03/14/19 11:10 Blood Blood Culture - Final No growth 03/14/19 10:24 Blood Blood Culture - Final No growth 03/13/19 08:50 Blood Blood Culture - Final Enterococcus faecalis 03/13/19 09:00 Blood Blood Culture - Final Enterococcus faecalis 03/14/19 16:44 Catheter Tip, A-port Catheter Tip Culture - Final Enterococcus faecalis 03/12/19 06:28 Blood Blood Culture - Final Enterococcus faecalis 03/12/19 06:12 Blood Blood Culture - Final Enterococcus faecalis 03/11/19 07:36 Blood Blood Culture - Final Enterococcus faecalis 03/11/19 06:53 Blood Blood Culture - Final Enterococcus faecalis 03/11/19 00:21 Urine,Random Urine Culture - Final Enterococcus faecalis 03/10/19 12:11 Blood Blood Culture - Final Enterococcus faecalis 03/10/19 12:11 Blood Blood Culture - Final Enterococcus faecalis (1) Infective endocarditis Chronicity: acute Infective endocarditis organism: bacterial Qualified Code(s): I33.0 - Acute and subacute infective endocarditis
[2019-03-21] MEDS ORDERED: IRON SUCROSE 300 MG in SODIUM CHLORIDE 0.9% 250 ML IV SCH (12:00)
--- NOTE | 2019-03-21 13:20 | History & Physical Bridge Note ---
Date of Service March 21, 2019 History & Physical Bridge Note Patient for insertion of a tunneled central venous catheter for antibiotics today. I have discussed the risks options and benefits of the procedure with the patient. The patient understands the risks options and benefits and agrees to the procedure. I have examined the patient, reviewed the History & Physical and in the interval since the performance of the History & Physical I have noted the following changes of clinical significance: no changes noted
[2019-03-21] MEDS ORDERED: LIDOCAINE HCL 1% 20 ML VIAL ONE (13:25)
--- NOTE | 2019-03-21 13:38 | Pre Anesthesia Assessment ---
Date of Service March 21, 2019 Pre Sedation Assessment Vital Signs Temp Pulse Pulse Resp BP BP Pulse Ox 03/21/19 13:00 36.7 C 89 20 194/80 H 94 03/21/19 11:49 36.6 C 85 16 170/62 H 92 03/21/19 11:17 83 14 173/70 H 96 03/21/19 07:06 36.4 C L 87 18 191/67 H 96 03/21/19 05:19 169/67 H 03/21/19 01:46 187/66 H 03/20/19 23:40 36.3 C L 86 18 191/65 H 94 03/20/19 15:47 36.2 C L 75 18 150/74 H 96 Cardiovascular RRR, no murmur, no edema Respiratory normal respiratory effort, lungs clear to auscultation Pre-Sedation Airway Assessment Smoking Status: Current every day smoker Hx Sleep Apnea: No Short, Thick Neck: Yes Thyromental Distance: > or= 3.5 Finger Breadths Oral Cavity: + WNL Mallampati Class: I ASA: ASA3 NPO Status Date of Last Intake of Fluids: 03/20/19 Time of Last Intake of Fluids: 23:00 Date of Last Intake of Solid Food: 03/20/19 Time of Last Intake of Solid Foods: 23:00 Procedure Planning Contraindications for Sedation: none Current Medications Reviewed: Yes Notes The planned sedation has been discussed with the patient. Informed Consent was obtained. I have identified the patient, determined the appropriateness of sedation and have assessed the patient immediately prior to the procedure. All medicine(s) and interventions are by my order.
[2019-03-21] MEDS ORDERED: fentaNYL citrate 100 MCG/2 ML VIAL ONE (13:49)
[2019-03-21] MEDS ORDERED: MIDAZOLAM HCL 1 MG/ML 2ML VIAL ONE (13:49)
--- NOTE | 2019-03-21 14:16 | Post Anesthesia Assessment ---
Date of Service March 21, 2019 Post Sedation Assessment Vital Signs Temp Pulse Pulse Pulse Resp BP BP 03/21/19 14:05 84 20 181/72 H 03/21/19 14:00 86 20 178/105 H 03/21/19 13:55 85 20 184/68 H 03/21/19 13:51 83 20 185/64 H 03/21/19 13:00 36.7 C 89 20 194/80 H 03/21/19 11:49 36.6 C 85 16 170/62 H 03/21/19 11:17 83 14 173/70 H 03/21/19 07:06 36.4 C L 87 18 191/67 H 03/21/19 05:19 169/67 H 03/21/19 01:46 187/66 H 03/20/19 23:40 36.3 C L 86 18 191/65 H 03/20/19 15:47 36.2 C L 75 18 150/74 H Pulse Ox 03/21/19 14:05 100 03/21/19 14:00 100 03/21/19 13:55 100 03/21/19 13:51 99 03/21/19 13:00 94 03/21/19 11:49 92 03/21/19 11:17 96 03/21/19 07:06 96 03/21/19 05:19 03/21/19 01:46 03/20/19 23:40 94 03/20/19 15:47 96 Recovery Score Activity: Moves 4 extremities Respiration: Deep Breath/Cough Circulation: +/-20% PreAnes Value Consciousness: Fully Awake Oxygen Saturation: O2 needed for >90% Post Anesthesia Score: 9 Discharge Sedation Level of Care: Fast Track Phase II Post Sedation Plan On clinical assessment, the patient appears to have tolerated the sedation without complications. Patient is recovering as anticipated. Patient will continue to be monitored by nursing and may be discharged when sedation discharge criteria are met per below protocol. Upon Completions of procedure and additional 15 minutes continue every 5 minute vital signs and the P.A.R. score; then discharge to a Phase I or Fast Track to Phase II per the following guidelines: * Discharge Patient to appropriate Phase II area if PAR is 8 or greater or return to pre- procedure baseline. The post - procedure orders will be as directed. * If PAR score is less than 8 or not return to pre-procedure baseline then patient will follow Phase I monitoring till PAR is reached for Phase II. The Phase I may be done in procedure room or may call to secure a Phase I area. * If naloxone or flumazenil are used for reversal, hold in Phase I for continued monitoring from when last reversal dose was given for a minimum of 60 minutes or longer pending the nurse and/or physician discretion of patient condition before discharge to Phase II. Please call the Sedation Physician to re-evaluate and complete post-note for discharge to Phase II area. Do NOT discharge from procedure sedation or Phase 1 until post- sedation evaluation note is complete by procedure /sedation MD Sedation Discharge Instructions to be given to the patient at discharge to home.
--- NOTE | 2019-03-21 14:16 | Operative Report ---
Post Operative Report Pre & Post Diagnosis Operation Date: 03/11/19 08:30 Pre-Op Diagnosis: SHORTNESS OF BREATH Post-Op Diagnosis: SHORTNESS OF BREATH Operation Date: 03/14/19 17:50 Pre-Op Diagnosis: Infected Port Post-Op Diagnosis: Infected Port Operation Date: 03/21/19 10:45 Pre-Op Diagnosis: Lack of IV Access Post-Op Diagnosis: Lack of IV Access Procedure Operation Date: 03/11/19 08:30 Actual Procedures p Transesophageal Echo(Not Applicable) - Damian Hirsch MD Operation Date: 03/14/19 17:50 Actual Procedures p Infusaport Removal - Wili Dumas MD, FACS Operation Date: 03/21/19 10:45 Actual Procedures p Insertion of Tunneled Central Venous Access Device, Right Jugular Approach, Ultrasound Localization of Right Internal Jugular Vein, Fluoroscopy for Positioning, Moderate Sedation 1355- 1418(Right) - Buzz Brar MD Surgeon Buzz Brar MD Flaker Operator none Estimated Blood Loss 2 Findings Consistent with Post-Op Diagnosis Specimens None Anesthesia Type RN Sedation Complications none Disposition Accompanied Patient To Recovery: No Disposition: Recovery Room Indications This patient is a 74-year-old female who was septic from an infected port in the left chest wall. This was removed. Her new blood cultures were negative. She needs long-term antibiotic therapy and lacks venous access. PowerPort Velásquez was recommended. I have discussed the risks options and benefits of the procedure with the patient. The patient understands the risks options and benefits and agrees to the procedure. Description of Procedure Patient was taken to the angio suite and placed in the supine position. The right side of the neck and chest wall were prepped and draped in a sterile manner. The patient was identified and a timeout was performed. Local anesthesia was then administered to the appropriate areas of the neck and chest wall. Ultrasound was then used to locate the right internal jugular vein. The vein compressed easily, had no filing defects, and was patent. The vein was then punctured under direct ultrasound imaging. A guidewire was then passed centrally under fluoroscopic imaging. A stab wound was then made in the a nterior chest wall and a PowerPort Velásquez was passed from the stab wound on the chest wall to the puncture site on the neck. The puncture site was then dilated to 10 German peel away sheath was inserted. The PowerPort Velásquez was cut the appropriate length after placing on the chest wall. The the PowerPort Velásquez was then inserted through the sheath to a central position in the distal superio r vena cava. The peel away sheath was then removed. The catheter was then sutured in place using nylon sutures. The puncture was then closed using a 4-0 Vicryl subcuticular suture. Dermabond was used for a dressing on the puncture site. The single-lumen port aspirated and flushed easily and was then flushed with heparinized saline.. A sterile dressing was applied to the catheter. The patient left the operation room in satisfactory condition and tolerated the procedure well. All needle and sponge counts were correct at the end of the procedure. I attest to the content of the Intraoperative Record and any orders documented therein. Any exceptions are noted below.
[2019-03-21] MEDS: RIVAROXABAN 20 MG TAB PO SCH (18:53)
--- NOTE | 2019-03-21 19:00 | Discharge Summary ---
Date of Service March 21, 2019 Admission HPI Per Admitting Provider 74 y/o F Hx COPD, AF, RA, history of lung CA - RLL lobectomy 2017, smoker. Presents with progressive SOB and orthopnea. Also states that she has been experiencing frequent falls and may have had 2 syncopal episodes over the past two weeks. During a fall a few weeks ago, she sustained a lumbar compression fracture. She states she recently developed lower extremity edema for which she was placed on Lasix. She was also provided with compression stockings and reports that she had developed a mild petechial rash over her distal lower extremities. She is anticoagulated with Xarelto and was also recently diagnosed with anemia for which she received a unit of PRBCs one week prior and was then scheduled for a colonoscopy and endoscopy in the coming week. She does not report any hematochezia or black stools. A relative at bedside reported her syncopal episode which she initially denied as she did not wish to remain in the hospital this evening. Initial labs are notable for an elevated CRP, stable anemia and an elevated BNP. A CXR and a CT chest both demonstrate vascular congestion. PMH: 1) L lung CA - LLL Lobectomy 2017 followed by 4 cycles of chemotherapy. 2) RA - not currently treated 3) Chronic AF 4) Smoker Surgical: LLL lobectomy 2017 Social: Smokes up to a pack daily, does not drink alcohol. Employed at an [employer] Family: Mother due to lung CA Father - CAD, COPD, asbestosis Principal Diagnosis Infective endocarditis, Enterococcus bacteremia, infected port, thoracolumbar discitis/osteomyelitis Discharge Exam Constitutional WD/WN, vitals as above Eyes PERRL, conjunctivae normal, anicteric sclerae ENMT external ear and nose normal, oropharynx normal Ears: no hearing impairment Neck trachea midline, no thyromegaly Respiratory normal respiratory effort, lungs clear to auscultation normal respiratory effort Cardiovascular Rate/Rhythm: regular rate and regular rhythm Heart Sounds: + murmur (1/6 at the apex) Vessels: no JVD Extremities: no edema Chest (Breasts) Chest: + vascular access device or port (right anterior chest wall with Velásquez,small amount fresh blood on dressing); + abnormal inspection of chest (Left upper anterior chest wall with dressing in place clean dry and intact) Gastrointestinal (Abdomen) normal bowel sounds, soft, nontender, no hepatosplenomegaly Musculoskeletal Extremities: strength 5/5 throughout and + clubbing (Of the fingers); no cyanosis Neurologic moves all extremities and awake; no focal motor deficits Psychiatric Orientation: alert, oriented x 3 and cooperative Eye Contact: good eye contact Discharge Data Allergies Allergy/AdvReac Type Severity Reaction Status Date / Time No Known Allergies Allergy Verified 03/04/19 08:56 Consultations 03/10/19 01:42 ED Decision to Admit Stat 03/10/19 03:15 Consult Cardiology Routine 03/10/19 09:53 Consult Pulmonology Routine 03/11/19 06:36 Consult Infectious Diseases Routine 03/11/19 06:40 Consult Orthopedic Surgery Routine 03/13/19 08:37 Consult Hematology Routine 03/14/19 11:06 Consult General Surgery Routine 03/18/19 21:20 Consult Vascular Surgery Routine Procedures Performed Operation Date: 03/11/19 08:30 Actual Procedures p Transesophageal Echo(Not Applicable) - Damian Hirsch MD Operation Date: 03/14/19 17:50 Actual Procedures p Infusaport Removal - Wili Dumas MD, FACS Operation Date: 03/21/19 10:45 Actual Procedures p Insertion of Tunneled Central Venous Access Device, Right Jugular Approach, Ultrasound Localization of Right Jugular Vein, Fluoroscopy for Positioning, Moderate Sedation [id number](Right) - Buzz Brar MD Ordered Studies 03/10/19 01:41 CT angio chest PE protocol Urgent 03/10/19 11:29 MR lumbar spine wo con Routine 03/11/19 15:34 MR brain wo/w con Routine 03/14/19 11:04 CT abd pelvis wo con Routine 03/21/19 07:36 US guide vascular access Routine 03/21/19 11:29 EV cvc insrt tunnel wo prt/fruit tester Routine ECHO ISSA CXRs Hospital Course (1) Infective endocarditis: MV and AV. Pathogen -Enterococcus faecalis Source for septicemia/endocarditis - PORT. Her urine culture was also positive for Enterococcus faecalis but infectious disease thinks this is due to high burden of bloodstream infection and not a true UTI as the source s/p removal by Dr Dumas -- POD #7. Needs to have her sutures removed from the previous port site on March 24 and f/u with Surgery All cultures were positive for enterococcus however her 03/14 blood cultures are still NEGATIVE suggesting sterility. Port tip culture has grown enterococcus confirming the PORT was indeed the source for her bacteremia/endocarditis/etc. Appreciate ID and gen surg along w/ cardiology consultations. Cont IV amp and rocephin x 6 weeks from the time of the first negative blood culture which was on 03/14/19. This would put her end date for antibiotics at April 24 Unfortunately, despite multiple attempts by PICC line team on 2 days, her veins are too small for PICC. Vascular surgery Dr Brar placed a Velásquez PowerPort for long-term IV abx. - will continue to hold Xarelto until evening of 03/23 F/u with ID after discharge -check weekly CBC, ESR,CRP,CMP while on abx -f/u with Cardiology after discharge (2) Septicemia due to enterococcus: see above in "infective endocarditis." (3) Discitis of multiple sites of spine: T11-T12 L3-L4 seen by orthopedics spine earlier this admission - no surgical intervention. continue IV antibiotic therapy. pain resolved with tramadol does not tolerate prescribed back brace (4) COPD (chronic obstructive pulmonary disease): Cont nebs prn. Desperately needs to quit smoking.has not smoked since admission Has prior h/o left-sided lung cancer s/p resection. (5) Current smoker: offered nicoderm patch - has declined this every day. counseled to quit. (6) Anemia: Fe studies, b12, folate - wnl. Hemoccult is positive suspect anemia due to infective endocarditis and chronic disease, in addition to chronic GI blood loss in the setting of being on Xarelto Seen by hematology and do not suspect MDS SPEP consistent with acute phase reactant s/p 2 units PRBCs this admission. -received 1 dose of IV venofer here prior to discharge -Hemoglobin remained stable since last transfusion and is at 10.6 -Follow CBC -Has planned EGD and colonoscopy as an outpatient which will now need to be pushed back due to ongoing infection (7) Chronic kidney disease, stage 3a: creatinine continues to be stable (8) Atrial fibrillation: PAF. NSR on prior CV monitoring. Continue Xarelto for anticoagulation -continue diltiazem for rate control (9) Rheumatoid arthritis: quiescent at this time. not on disease modifying agents. 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 continue to treat with IV abx therapy. no apparent symptoms from such. (11) Cognitive impairment: per discussions w/ her family she may have early, mild cognitive impairment. probably had metabolic encephalopathy earlier in the stay along with significant anxiety -- both improved. continue to monitor. her MRI brain this admission was negative for septic emboli. (12) Essential (primary) hypertension: Blood pressure remains somewhat elevated despite increased dose of losartan to 100mg -Continue diltiazem 240mg daily -Continue increased dose of losartan 100 mg -consider adding HCTZ 25mg daily after discharge if BPs remain elevated (13) DVT prophylaxis: Xarelto- on hold until 03/23 Dispo stable for discharge to acute rehab today Total Time Total Time Spent Total Time Spent (In Minutes): >30 min Total Time Includes: Examination of the Patient, Discharge Planning and Medication Reconciliation Discharge Plan Discharge Items Patient Disposition: Transfer Inpatient Rehab Fac Reason For Visit: SHORTNESS OF BREATH Discharge Diagnosis: Infective endocarditis, port infection, thoraco-lumbar discitis/ostemyelitis Condition: Good Discharge Goals: Decrease discomfort, Diagnostic testing, Improve disease control, Increase independence, Learn about illness and Therapeutic intervention Activity: As commented below Lifting: No more than 5 pounds Bathing: Keep incision dry Bathing Comment: Keep Velásquez port catheter site dry Exercise/Sports: As tolerated Non-emergency contact: Primary Care Provider and Surgeon Call non-emergency contact if: you have any medication questions, your symptoms worsen, your pain is not controlled, your pain is worsening, your pain is unusual for you, your pain is concerning for you, you have a fever, your tempera ture is above 100.5, your wound has increased redness, your wound has increased drainage and your wound pain has increased Follow-up/Referrals: Wili Dumas MD, FACS [Physician] - (Call the office to make an appointment to have sutures removed around March 24) Santa Yuan MD [Primary Care Provider] - Cheryl Rasheed DO [Physician] - (Please follow up within 1-2 weeks after discharge ) Damian Hirsch MD [Physician] - (Please follow up within 1 month after discharge) Diet: Heart Healthy Addtl Provider Instructions: Ms. Mendoza was admitted with falls and possible syncope, along with shortness of breath. She was found to have mild volume overload secondary to mitral valve regurgitation and infective endocarditis on both the mitral and aortic valves. She had Enterococcus faecalis bacteremia persistently and also had discitis and osteomyelitis in her thoracic and lumbar spine. She will need to finish out a total of 6 weeks of IV Ampicillin and ceftriaxone with last dose to be on 04/24/19 at this point. She should follow up with Infectious Disease Dr. Rasheed and Dr. Hirsch of Cardiology within 2 weeks. She should have weekly CBC, ESR, Crp, CMP while on antibiotics. She has a Velásquez PowerPort in place for IV access. Her previous port-a-cath was removed as it was infected. Her Xarelto SHOULD NOT BE RESTARTED UNTIL THE EVENING OF 03/23/19. She needs follow up with the General Surgeon, Dr. Dumas, later this week for suture removal and f/u on port removal surgery. Prescriptions: New nicotine [Nicoderm CQ] 21 mg/24 hr Patch 24 Hour 21 mg transdermal QAM PRN (Reason: nicotine craving) Qty: 7 RF: 0 losartan 100 mg tablet 100 mg PO DAILY Qty: 30 RF: 0 tramadol 50 mg Tablet 50 mg PO Q4H PRN (Reason: pain) Qty: 18 RF: 0 Lactobacillus acidoph-L.bulgar [Floranex] 1 million cell Tablet 4 tab PO TIDM Qty: 360 RF: 0 ampicillin sodium 2 gram recon soln 2 gm IV Q6H 34 Days Qty: 136 RF: 0 ceftriaxone 2 gram recon soln 2 gm IV BID 34 Days Qty: 68 RF: 0 albuterol sulfate 2.5 mg /3 mL (0.083 %) Solution For Nebulization 2.5 mg NEB Q4H PRN (Reason: shortness of breath or wheezing) Qty: 30 RF: 0 Continued diltiazem HCl 240 mg Capsule,Extended Release 24 Hr 240 mg PO DAILY RF: 0 docusate sodium [Colace] 100 mg Capsule 100 mg PO BID PRN (Reason: CONSTIPATION) RF: 0 Xarelto 20 mg Tablet 20 mg PO DAILY RF: 0 acetaminophen 500 mg Tablet 500 - 1,000 mg PO Q6H PRN (Reason: Pain) RF: 0 alprazolam 0.5 mg Tablet 0.5 mg PO DAILY Qty: 3 RF: 0 Changed Xarelto 20 mg Tablet 20 mg PO PM Qty: 0 RF: 0 Discontinued ascorbic acid (vitamin C) [Vitamin C] 500 mg Tablet 500 mg PO DAILY RF: 0 benzonatate 100 mg Capsule 100 mg PO TID PRN (Reason: Cough) RF: 0 echinacea 500 mg Capsule 500 mg PO DAILY PRN (Reason: Cold Sores) RF: 0 cholecalciferol (vitamin D3) [Vitamin D3] 5,000 unit Tablet 5,000 unit PO DAILY RF: 0 tramadol 50 mg Tablet 50 mg PO DAILY RF: 0 Fluid Pill 1 dose PO DIRECTED RF: 0 Stand-Alone Forms: [facility] Discharge Orders: Discharge Order (Routine); Ordered 03/21/19 Ordered By: Kyara Meehan Skilled Items Patient informed of condition?: Yes DNR: No Discharge Level of Care: Acute rehab Communicable Disease: No Discharge Prognosis: Improving Admission Data Admit Date/Time: 03/10/19 01:44 Attending Provider: Kyara Meehan Admit Provider: Henry Mcfarlane Primary Care Provider: Santa Yuan V. Other Providers: Home,Nursing Agency ; Henry Mcfarlane ; Damian Hirsch ; Jannet Harrington ; Cheryl Rasheed ; Santo Lim ; Manny Taylor ; Wili Dumas ; Buzz Brar Service: Medical Other Pending Studies at Discharge: No
== END 2019-03-21 19:15 | DRG 314 ==
LOC: ED 23:10 → 2S 03-10 01:44 → SUATTDRO 03-10 01:44 → 2S 03-10 02:00 → 4W 03-17 16:26
PROC: CLS.TEE (2019-03-11 08:30)
DX: T80.211A Bloodstream infection due to central venous catheter, initial encounter; N18.3 Chronic kidney disease, stage 3 (moderate); G31.84 Mild cognitive impairment of uncertain or unknown etiology; B95.2 Enterococcus as the cause of diseases classified elsewhere; Z82.49 Family history of ischemic heart disease and other diseases of the circulatory system; Z80.1 Family history of malignant neoplasm of trachea, bronchus and lung; Z79.01 Long term (current) use of anticoagulants; D50.0 Iron deficiency anemia secondary to blood loss (chronic); M46.25 Osteomyelitis of vertebra, thoracolumbar region; M46.45 Discitis, unspecified, thoracolumbar region; I50.9 Heart failure, unspecified; R23.3 Spontaneous ecchymoses; R21 Rash and other nonspecific skin eruption; T17.990A Other foreign object in respiratory tract, part unspecified in causing asphyxiation, initial encounter; A41.81 Sepsis due to Enterococcus; G93.41 Metabolic encephalopathy; F41.9 Anxiety disorder, unspecified; I48.0 Paroxysmal atrial fibrillation; Z51.81 Encounter for therapeutic drug level monitoring; Y83.2 Surgical operation with anastomosis, bypass or graft as the cause of abnormal reaction of the patient, or of later complication, without mention of misadventure at the time of the procedure; F17.210 Nicotine dependence, cigarettes, uncomplicated; Z79.899 Other long term (current) drug therapy; D63.8 Anemia in other chronic diseases classified elsewhere; Z82.5 Family history of asthma and other chronic lower respiratory diseases; M19.90 Unspecified osteoarthritis, unspecified site; Z85.118 Personal history of other malignant neoplasm of bronchus and lung; R55 Syncope and collapse; I13.0 Hypertensive heart and chronic kidney disease with heart failure and stage 1 through stage 4 chronic kidney disease, or unspecified chronic kidney disease; R29.6 Repeated falls; J44.9 Chronic obstructive pulmonary disease, unspecified; D63.1 Anemia in chronic kidney disease; Z79.891 Long term (current) use of opiate analgesic; Z90.2 Acquired absence of lung [part of]; I33.0 Acute and subacute infective endocarditis; R82.71 Bacteriuria; K68.12 Psoas muscle abscess; M48.56XD Collapsed vertebra, not elsewhere classified, lumbar region, subsequent encounter for fracture with routine healing; Z60.2 Problems related to living alone

== ENCOUNTER 2019-03-25 02:12 | Inpatient (IN) ==
[2019-03-25] MEDS ORDERED: ALBUT/IPRATROP 3MG/0.5MG NEB 3 ML VIAL NEB ONE (02:22)
[2019-03-25] MEDS ORDERED: POTASSIUM CHLORIDE 20 MEQ TABCR PO STA ×2 (02:45→03:23)
[2019-03-25 02:46] LABS: Basophils # (auto) 0.02 K/uL (0-0.2); Basophils % (auto) 0.3 %; Eosinophils # (auto) 0.11 K/uL (0-0.5); Eosinophils % (auto) 1.7 %; Hematocrit (blood only) 28.8 % (37-47); Hemoglobin 9.3 g/dL (12.0-16.0); Immature Granulocytes # (auto) 0.01 K/uL (0.00-0.02); Immature Granulocytes % (auto) 0.2 %; Lymphocytes # (auto) 0.74 K/uL (1.2-3.4); Lymphocytes % (auto) 11.3 %; Mean Corpuscular Hgb Conc 32.3 g/dL (32-36); Mean Corpuscular Volume 83.7 fL (80-100); Mean Platelet Volume 8.9 fL (7.4-10.4); Monocytes # (auto) 0.46 K/uL (0.11-0.59); Monocytes % (auto) 7.1 %; Neutrophils # (auto) 5.18 K/uL (1.4-6.5); Neutrophils % (auto) 79.4 %; Platelet Count 202 K/uL (130-400); RDW Standard Deviation 48.6 fL (36.4-46.3); Red Blood Count 3.44 M/uL (4.2-5.4); White Blood Count 6.52 K/uL (4.8-10.8)
[2019-03-25 02:47] LABS: iSTAT Creatinine 0.7 mg/dl (0.6-1.3); iSTAT Hemoglobin 8.5 g/dl (12.0-16.0); iSTAT Ionized Calcium 1.04 mmol/l (1.12-1.32)
[2019-03-25] MEDS ORDERED: OPTIRAY 320 125ml IV PRN (03:00)
[2019-03-25 03:06] LABS: Albumin Level 1.9 gm/dl (3.4-5.0); BUN Creatinine Ratio 16.5 (10-20); Calcium 7.7 mg/dl (8.5-10.1); Creatinine Clr Calc Pharmacy 47.8 ml/min; Est GFR (African American) 88.2; Est GFR (Non-African American) 76.1
[2019-03-25 03:11] LABS: Albumin Globulin Ratio 0.4 (0.9-2); Bilirubin,Total 0.3 mg/dl (0.2-1); Creatine Kinase MB 1.2 ng/ml (0.5-3.6); Globulin 4.3 gm/dl (2.5-4.0); Total Protein 6.2 gm/dl (6.4-8.2); Troponin I 0.027 ng/ml (0-0.045)
[2019-03-25] MEDS ORDERED: LEVOFLOXACIN/D5W 750 MG/150 ML BAG IV STA (03:23)
[2019-03-25] MEDS ORDERED: VANCOMYCIN HCL 1,000 MG in SODIUM CHLORIDE 0.9% 500 ML IV ONE (03:23)
[2019-03-25] MEDS ORDERED: methylPREDNISolone 60 MG in SYRINGE 1 ML IV STA (03:23)
[2019-03-25] MEDS ORDERED: PIPERACILLIN/TAZOBACTAM 4.5 GM/120 ML BAG IV ONE (03:23)
[2019-03-25] MEDS ORDERED: VANCOMYCIN CONSULT ACTIVE PRN (03:23)
[2019-03-25] MEDS ORDERED: PIPERACILL/TAZOBAC CONSULT ACTIVE PRN (03:23)
[2019-03-25] MEDS ORDERED: FUROSEMIDE 40 MG/4 ML VIAL IV STA (03:23)
[2019-03-25] MEDS ORDERED: methylPREDNISolone 125 MG/2 ML VIAL ONE (03:34)
[2019-03-25 03:40] LABS: Influenza A virus by PCR Neg for Influ A (Neg); Influenza B virus by PCR Neg for Influ B (Neg)
[2019-03-25] MEDS ORDERED: METOPROLOL TARTRATE 1 MG/ML VIAL IV STA (05:27)
[2019-03-25] MEDS ORDERED: METOPROLOL TARTRATE 1 MG/ML VIAL IV ONE (05:31)
--- NOTE | 2019-03-25 05:44 | History & Physical Report ---
Date of Service March 25, 2019 Assessment & Plan (1) Shortness of breath: 74-year-old female was admitted on 25 Mar 2019 for very acute shortness of breath. Of note, she was an inpatient from March 10 to March 21 for infective endocarditis amongst other issues. Shortness of breath, hypoxia, PMH COPD: Patient woke from sleep early 10May with feeling of SOB. Noted anxiety from this as well. She denies recent fevers or feeling of illness since hospital discharge. - On arrival, afebrile, not tachycardic, is hypertensive, and was SpO2 81% on room air. Improved to 90% with 4 L nasal cannula. WBC 6, negative for influenza A and B. CTA chest (overnight read) notes no PE. No aortic disse ction or aneurysm. Moderate right and small left pleural effusions. New groundglass opacities in right upper and lower lobes not previously present. Repeat EKG after her neb notes some tachycardia with PACs and a couplet. - In ED, repeat blood cultures were sent. Given methylprednisolone 60 mg x 1. Given vancomycin, Zosyn, and Levaquin. - Treated some increased tachycardia with metoprolol 5 mg IV x 1. - Not convinced it is HAP given no fever or leukocytosis. Continue endocarditis antibiotics. Ordered lactate, procalcitonin, and nasal MRSA swab. - Unclear exact etiology of this hypoxia, but anxiety likely played a role. Discussed the same with the patient, recommended she stay for monitoring through at least today. See if she can be weaned off of supplemental oxygen. Scheduled xopenex nebs. 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 Discharged on ampicillin and Rocephin with planned antibiotic end date around April 24. Apparently was unable to get PICC due to vessel size. Velásquez PowerPort placed for long-term antibiotics. - Continue prior ampicillin and ceftriaxone. Pleural effusions: Seen on CTA chest. BNP 3046. TTE on 10Mar2019 noted EF 60- 65% with mild LVH. - In ED, given Lasix 40 mg IV x1. - We will treat her breathing difficulties as above. Hypokalemia: Admit K 3.0. Replaced in ED. Monitor. Anemia: Previous positive Hemoccult. Suspected anemia of chronic inflammation. Seen by hematology, did not suspect MDS. Was transfused on last admission. Planned EGD and colonoscopy as outpatient was delayed due to her endocarditis. --- Admit Hb 9.3. No reports of acute bleeding. Monitor. Ongoing medical issues: - History of lung cancer status post right lower lobe lobectomy in 2017. - Hypertension: Continue home diltiazem, losartan, potassium. - Paroxysmal atrial fibrillation: Continue diltiazem and xarelto. - Rheumatoid arthritis: Not presently on any DMARDs. - Anxiety: Continue home Xanax. - Spinal discitis: T11-T12 as well as L3-L4. Seen by orthopedics and previous admission, no surgical intervention recommended at that time. Has some ongoing back pain, so continue home tramadol. - Left psoas abscess: As seen on last admission, 1 cm, asymptomatic. Treated with IV antibiotics. - Cognitive impairment: Concerns for same / dementia on last admission. MRI of her brain was negative for septic emboli. Code status: Full code. Diet: Heart healthy. DVT prophy: Xarelto. PT/OT: Deferred. Disbo: Admit to telemetry. --- Consulted case management at time of admission. Patient is quite adamant that she does not wish to return to [facility]. Perhaps she can be discharged home with appropriate home health care. --- Dr. Anaya spoke with [id number]. Apparently the patient has been more confused in recent weeks. (2) Hypoxia: (3) Infective endocarditis: (4) Pleural effusion: (5) Hypokalemia: (6) Anemia: (7) History of lung cancer: (8) Hypertension: (9) Paroxysmal atrial fibrillation: (10) Rheumatoid arthritis: (11) Anxiety: (12) Discitis, unspecified, multiple sites in spine: (13) Psoas abscess, left: (14) Cognitive impairment: (15) Current smoker: History of Present Illness Primary Care Provider: [facility] 74-year-old female was brought to the emergency department by EMS for acute shortness of breath. Of note, the patient was an inpatient from March 10 to March 21 for infective endocarditis amongst other issues. She was discharged to [facility]. Patient says that over the past interval days she did not notice any particular acute health concerns. - Patient says that this morning around 1 AM she woke from sleep with the acute feeling of shortness of breath. She says this made her quite anxious, including the idea she would have to come back to the hospital. She denies any recent fe vers, chest pain or shortness of breath, or feeling of illness. - Here in the emergency department, patient says at present she feels quite fine. She thinks that her current treatment this conduit cleaner thus far has been a bit of an overreaction. She says that at this point she does not wish to return to [facility] and would prefer to be discharged back to her own home. She says she lives alone but could get help. 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 --- Past medical history includes left lung cancer, rheumatoid arthritis, paroxysmal atrial fibrillation, smoker, hypertension, spinal discitis. --- Past surgical history includes left lower lobe lobectomy in 2017. --- Social history includes current smoker of up to 1 pack/day. Denies alcohol use. Usually lives at home alone. Allergies Allergy/AdvReac Type Severity Reaction Status Date / Time No Known Allergies Allergy Verified 03/25/19 04:05 Home Medications Home Medications Medication Instructions Recorded Confirmed Type diltiazem HCl 240 mg PO DAILY 12/14/18 03/25/19 History docusate sodium [Colace] 100 mg PO BID 12/14/18 03/25/19 History Lactobacillus acidoph-L.bulgar 4 tab PO TIDM #360 tab 03/21/19 03/25/19 Rx [Floranex] Xarelto 20 mg PO PM #0 tab 03/21/19 03/25/19 Rx alprazolam 0.5 mg PO DAILY #3 tab 03/21/19 03/25/19 Rx ampicillin sodium 2 gm IV Q6H 34 Days #136 ea 03/21/19 03/25/19 Rx losartan 100 mg PO DAILY #30 tab 03/21/19 03/25/19 Rx nicotine [Nicoderm CQ] 21 mg TRANSDERMAL QAM PRN #7 ea 03/21/19 03/25/19 Rx tramadol 50 mg PO Q4H PRN #18 tab 03/21/19 03/25/19 Rx acetaminophen [Tylenol] 650 mg PO Q4 PRN 03/25/19 03/25/19 History albuterol sulfate 2.5 mg NEB Q4H PRN 03/25/19 03/25/19 History ceftriaxone 2 gm IV Q12 03/25/19 03/25/19 History polyethylene glycol 3350 [Miralax] 17 g PO DAILY 03/25/19 03/25/19 History polyethylene glycol 3350 [Miralax] 17 g PO UD PRN 03/25/19 03/25/19 History potassium chloride 10 meq PO BID 03/25/19 03/25/19 History sennosides-docusate sodium 1 tab PO UD PRN 03/25/19 03/25/19 History [Senokot-S] Past Med/Surg History Medical History COPD (chronic obstructive pulmonary disease) Lung cancer Mitral regurgitation Surgical History S/P lobectomy of lung LLL, in 09/2017 Family History Father Hypertension Social History Preferred Language: Burkinan Communication Ability: Effective Visual Impairment: No Limitations Hearing Ability: Normal Beliefs That Will Affect Care: None Current Living Situation: Alone Feels Safe at Home: Yes Smoking Status: Current every day smoker Tobacco Type: cigarettes Cigarettes Per Day: 10-20 Second Hand Exposure: No Hx Alcohol Use: No Hx Substance Use: No Review of Systems Review of Systems: Constitutional: Denies fevers, chills, focal weakness Eyes: Denies any visual loss or diplopia ENT: Denies any ear/nose/throat pain or difficulty speaking or swallowing Respiratory: Positive dyspnea, resolved. Denies hemoptysis. Cardiovascular: Denies any chest pain or feeling of edema Gastrointestinal: Denies any abdominal pain, nausea/vomiting/diarrhea Musculoskeletal: Denies any acute extremity pains, myalgias, or focal weakness Skin: Denies any known acute rashes or lesions Neuro: Denies any headache, acute focal weakness or numbness, or difficulties with speech or swallow. Physical Exam Physical Exam: GENERAL: Awake, alert, easily conversational, does not appear in acute distress. HENT: Normocephalic, atraumatic. Oropharynx unremarkable. EYES: Normal conjunctiva. Sclera non-icteric. NECK: Inspection normal. Supple and full ROM. No nuchal rigidity. CARDIAC: +S1S2 RRR, no murmurs. Right upper chest port accessed. RESPIRATORY: Clear to auscultation. No wheezes or rales. Normal respiratory effort without accessory muscle use. (She does have a DuoNeb in progress). GI: +BS, soft, non-distended. No tenderness to palpation. No rebound or guarding. No appreciable masses. EXTREMITIES: No pedal edema or calf tenderness. Moving all extremities naturally and easily. NEURO: No gross neuro deficits. Results & Data Vital Signs (Past 12 Hours) Vital Signs Temp Pulse Pulse Resp BP BP Pulse Ox 03/25/19 05:35 112 H 20 161/88 H 97 03/25/19 05:01 118 H 18 148/67 H 94 03/25/19 05:00 114 H 23 94 03/25/19 04:32 103 H 28 H 178/69 H 100 03/25/19 04:31 105 H 27 H 98 03/25/19 04:02 95 H 23 98 03/25/19 04:01 101 H 19 153/79 H 98 03/25/19 04:00 95 H 15 97 03/25/19 03:32 88 24 149/89 H 100 03/25/19 03:30 91 H 21 100 03/25/19 03:17 90 21 180/69 H 100 03/25/19 03:04 90 20 90 03/25/19 03:00 90 15 90 03/25/19 02:30 82 20 94 03/25/19 02:20 90 18 92 03/25/19 02:17 88 21 190/74 H 90 03/25/19 02:15 36.4 C L 88 18 190/74 H 81 L Laboratory Results 03/25/19 03/25/19 03/25/19 Range/Units 05:33 03:43 03:00 WBC (4.8-10.8) K/uL RBC (4.2-5.4) M/uL Hgb (12.0-16.0) g/dL POC Hgb (12.0-16.0) g/dl Hct (37-47) % POC Hct (37-47) % MCV (80-100) fL MCH (25-34) pg MCHC (32-36) g/dL RDW Std Deviation (36.4-46.3) fL RDW Coeff of Jose (11.5-14.5) % Plt Count (130-400) K/uL MPV (7.4-10.4) fL Immature Gran % (Auto) % Neut % (Auto) % Lymph % (Auto) % [place] % (Auto) % Eos % (Auto) % Baso % (Auto) % Immature Gran # (Auto) (0.00-0.02) K/uL Neut # (Auto) (1.4-6.5) K/uL Lymph # (Auto) (1.2-3.4) K/uL [place] # (Auto) (0.11-0.59) K/uL Eos # (Auto) (0-0.5) K/uL Baso # (Auto) (0-0.2) K/uL POC Sodium (135-144) mEq/L Sodium (136-145) mmol/L POC Potassium (3.3-5.0) mEq/L Potassium (3.5-5.1) mmol/L POC Chloride (101-112) mEq/L Chloride (98-107) mmol/L Carbon Dioxide (21-32) mmol/L POC Total CO2 (24-31) mEq/l Anion Gap (3-11) POC Anion Gap (16-25) mmol/L POC BUN (7-18) mg/dl BUN (7-18) mg/dl Creatinine (0.6-1.2) mg/dl POC Creatinine (0.6-1.3) mg/dl Est Cr Clr Drug Dosing ml/min Est GFR ( Amer) Est GFR (Non-Af Amer) BUN/Creatinine Ratio (10-20) Glucose (70-99) mg/dl POC Glucose (other) (70-99) mg/dl Lactate Pending Calcium (8.5-10.1) mg/dl POC Ioniz Calcium Miles (1.12-1.32) mmol/l Total Bilirubin (0.2-1) mg/dl AST (15-37) U/L ALT (12-78) U/L Alkaline Phosphatase (45-117) U/L Total Creatine Kinase (26-192) U/L CK-MB (CK-2) (0.5-3.6) ng/ml CK/CKMB % Calc (0-3.0) Troponin I (0-0.045) ng/ml NT-Pro-B Natriuret Pep (0-900) pg/ml Total Protein (6.4-8.2) gm/dl Albumin (3.4-5.0) gm/dl Globulin (2.5-4.0) gm/dl Albumin/Globulin Ratio (0.9-2) Lipase (73-393) U/L Influenza Type A (PCR) Neg for Influ A (Neg) Influenza Type B (PCR) Neg for Influ B (Neg) Blood Type Pending Antibody Screen Pending 03/25/19 03/25/19 03/25/19 Range/Units 02:33 02:15 02:15 WBC 6.52 (4.8-10.8) K/uL RBC 3.44 L (4.2-5.4) M/uL Hgb 9.3 L (12.0-16.0) g/dL POC Hgb 8.5 L (12.0-16.0) g/dl Hct 28.8 L (37-47) % POC Hct 25 L (37-47) % MCV 83.7 (80-100) fL MCH 27.0 (25-34) pg MCHC 32.3 (32-36) g/dL RDW Std Deviation 48.6 H (36.4-46.3) fL RDW Coeff of Jose 16.0 H (11.5-14.5) % Plt Count 202 (130-400) K/uL MPV 8.9 (7.4-10.4) fL Immature Gran % (Auto) 0.2 % Neut % (Auto) 79.4 % Lymph % (Auto) 11.3 % [place] % (Auto) 7.1 % Eos % (Auto) 1.7 % Baso % (Auto) 0.3 % Immature Gran # (Auto) 0.01 (0.00-0.02) K/uL Neut # (Auto) 5.18 (1.4-6.5) K/uL Lymph # (Auto) 0.74 L (1.2-3.4) K/uL [place] # (Auto) 0.46 (0.11-0.59) K/uL Eos # (Auto) 0.11 (0-0.5) K/uL Baso # (Auto) 0.02 (0-0.2) K/uL POC Sodium 140 (135-144) mEq/L Sodium 139 (136-145) mmol/L POC Potassium 3.0 L (3.3-5.0) mEq/L Potassium 3.0 L (3.5-5.1) mmol/L POC Chloride 104 (101-112) mEq/L Chloride 108 H (98-107) mmol/L Carbon Dioxide 25 (21-32) mmol/L POC Total CO2 23 L (24-31) mEq/l Anion Gap 6.0 (3-11) POC Anion Gap 17.0 (16-25) mmol/L POC BUN 12 (7-18) mg/dl BUN 13 (7-18) mg/dl Creatinine 0.77 (0.6-1.2) mg/dl POC Creatinine 0.7 (0.6-1.3) mg/dl Est Cr Clr Drug Dosing 47.8 ml/min Est GFR ( Amer) 88.2 Est GFR (Non-Af Amer) 76.1 BUN/Creatinine Ratio 16.5 (10-20) Glucose 100 H (70-99) mg/dl POC Glucose (other) 103 H (70-99) mg/dl Lactate Calcium 7.7 L (8.5-10.1) mg/dl POC Ioniz Calcium Miles 1.04 L (1.12-1.32) mmol/l Total Bilirubin 0.3 (0.2-1) mg/dl AST 14 L (15-37) U/L ALT 8 L (12-78) U/L Alkaline Phosphatase 96 (45-117) U/L Total Creatine Kinase 14 L (26-192) U/L CK-MB (CK-2) 1.2 (0.5-3.6) ng/ml CK/CKMB % Calc 8.6 H (0-3.0) Troponin I 0.027 (0-0.045) ng/ml NT-Pro-B Natriuret Pep 3486 H (0-900) pg/ml Total Protein 6.2 L (6.4-8.2) gm/dl Albumin 1.9 L (3.4-5.0) gm/dl Globulin 4.3 H (2.5-4.0) gm/dl Albumin/Globulin Ratio 0.4 L (0.9-2) Lipase 99 (73-393) U/L Influenza Type A (PCR) (Neg) Influenza Type B (PCR) (Neg) Blood Type Antibody Screen Medications Administered Vancomycin HCl 1,000 mg/ (Sodium Chloride) 520 mls @ 200 mls/hr IV NOW ONE; Protocol Stop: 03/25/19 05:58 Last Admin: 03/25/19 05:26 Dose: 200 mls/hr Documented by: [id number] Ioversol (Optiray 320 125ml) 119 ml IV ONCE PRN PRN Reason: Interaction Checking Stop: 03/29/19 02:59 Last Admin: 03/25/19 03:00 Dose: 1 ml Documented by: [id number] Discontinued Medications Albuterol (Duoneb) 12 ml NEB ONE ONE Stop: 03/25/19 02:23 Last Admin: 03/25/19 03:04 Dose: 12 ml Documented by: [id number] Furosemide (Lasix) 40 mg IV NOW STA Stop: 03/25/19 03:24 Last Admin: 03/25/19 03:39 Dose: 40 mg Documented by: [id number] Piperacillin Sod/Tazobactam Sod (Zosyn) 4.5 gm in 120 mls @ 240 mls/hr IV NOW ONE Stop: 03/25/19 03:52 Last Infusion: 03/25/19 04:36 Dose: 0 mls/hr Documented by: [id number] Admin: 03/25/19 03:39 Dose: 240 mls/hr Documented by: [id number] Levofloxacin/Dextrose (Levaquin/D5w) 750 mg in 150 mls @ 100 mls/hr IV NOW STA Stop: 03/25/19 04:52 Last Admin: 03/25/19 04:35 Dose: 100 mls/hr Documented by: [id number] Methylprednisolone 60 mg/ (Syringe) 1.96 mls @ 1.5 mls/min IV NOW STA Stop: 03/25/19 03:24 Last Admin: 03/25/19 03:39 Dose: 1.5 mls/min Documented by: [id number] Methylprednisolone (Solumedrol) Confirm Administered Dose 125 mg .ROUTE .STK-MED ONE Stop: 03/25/19 03:35 Last Admin: 03/25/19 03:39 Dose: Not Given Documented by: [id number] Metoprolol Tartrate (Lopressor) Confirm Administered Dose 5 mg IV .STK-MED ONE Stop: 03/25/19 05:32 Last Admin: 03/25/19 05:34 Dose: 5 mg Documented by: [id number] Potassium Chloride (Klor-Con M20) 40 meq PO NOW STA Stop: 03/25/19 02:46 Last Admin: 03/25/19 03:19 Dose: 40 meq Documented by: [id number] Potassium Chloride (Klor-Con M20) 40 meq PO NOW STA Stop: 03/25/19 03:24 Last Admin: 03/25/19 03:39 Dose: 40 meq Documented by: [id number] Code Status & VTE Plan Code Status Full code VTE Prophylaxis Plan VTE Prophylaxis will be ordered: Yes Supervising Physician Co-Signing Physician Notes Patient seen and examined, chart reviewed, case discussed with Dr. Ramirez and I agree with his assessment and plan as above. Briefly, patient is a 74yo female with recent admission for bacterial endocarditis on IV ampicillin and ceftriaxone. Patient with acute onset SOB and hypoxia this afternoon. Improved with supplemental oxygen. Patient really with no complaints, she does not want to stay in the hospital. On arrival she was hypoxic, hypertensive. Improved with hour long neb and O2. Patient with tachycardia with ectopy PACs/PVCs after receiving nebs On exam she is afebrile, tachycardic, BP stable, NAD skin: bruising HEENT: NC/AT, PERRL, MMM, Neck supple, no JVD HEart: +S1/S2, irregular and tachycardic, no m/r/g Lungs: CTA Abd: +BS, soft, NT/ND Ext: no edema Labs and images reviewed. Groundglass opacity in RUL ?infection vs inflammation vs atelectasis ?aspiration. No PE EKG with underlying sinus rhythm with PACs and PVCs Assessment/Plan: ?PNA - check procalcitonin and monitor clinically. Continue abx for endocarditis. Wean O2 Spoke with patient's sister in law who is a nurse in [place] - she reports that patient has been confused since being in the hospital, does not want her to go home alone just yet Remainder of plan as above Resident Activity Tracking Resident Involvement: Resident Care Provided Care Provided: Adult Hospital Medicine (1) Rheumatoid arthritis Rheumatoid arthritis location: unspecified site Rheumatoid factor presence: unspecified presence Qualified Code(s): M06.9 - Rheumatoid arthritis, unspecified (2) Anemia Anemia type: iron deficiency Iron deficiency anemia type: unspecified iron deficiency Qualified Code(s): D50.9 - Iron deficiency anemia, unspecified (3) Infective endocarditis Chronicity: acute Infective endocarditis organism: bacterial Qualified Code(s): I33.0 - Acute and subacute infective endocarditis
--- NOTE | 2019-03-25 05:53 | Emergency Department Note ---
Entered by Wili Harrison acting as a scribe for History of Present Illness General Chief complaint: Shortness of Breath/Dyspnea Source: patient and RN notes reviewed History of Present Illness Provider complaint: Shortness of breath Onset (ago): hour(s) 1 Location: chest Radiation: non-radiation Pain Consistency: + constant Relieved By: + none Exacerbated By: + none Associated symptoms: + denies other symptoms The patient is a 74 year old female who presents to the Emergency Room with complaints of constant shortness of breath that woke her up this morning about an hour ago. The patient was getting treated in [facility] with IV antibiotics when the shortness of breath occurred. Per the nursing note, the patient was 70% on room air and after being putting on 2L was 90%. She does not typically wear oxygen at baseline. She does have a history of lung cancer and has had a lobectomy, removing her left lower lobe. She has also done chemotherapy but currently is not. For the cancer she had an arterial port placed, however it became infected requiring it to be removed. Per EMS, the patient started having respiratory problems after the Aport was infected. The patient also has a history of endocarditis. Home Medications Home Medications Medication Instructions Recorded Confirmed Type diltiazem HCl 240 mg PO DAILY 12/14/18 03/25/19 History docusate sodium [Colace] 100 mg PO BID 12/14/18 03/25/19 History Lactobacillus acidoph-L.bulgar 4 tab PO TIDM #360 tab 03/21/19 03/25/19 Rx [Floranex] Xarelto 20 mg PO PM #0 tab 03/21/19 03/25/19 Rx alprazolam 0.5 mg PO DAILY #3 tab 03/21/19 03/25/19 Rx ampicillin sodium 2 gm IV Q6H 34 Days #136 ea 03/21/19 03/25/19 Rx losartan 100 mg PO DAILY #30 tab 03/21/19 03/25/19 Rx nicotine [Nicoderm CQ] 21 mg TRANSDERMAL QAM PRN #7 ea 03/21/19 03/25/19 Rx tramadol 50 mg PO Q4H PRN #18 tab 03/21/19 03/25/19 Rx acetaminophen [Tylenol] 650 mg PO Q4 PRN 03/25/19 03/25/19 History albuterol sulfate 2.5 mg NEB Q4H PRN 03/25/19 03/25/19 History ceftriaxone 2 gm IV Q12 03/25/19 03/25/19 History polyethylene glycol 3350 [Miralax] 17 g PO DAILY 03/25/19 03/25/19 History polyethylene glycol 3350 [Miralax] 17 g PO UD PRN 03/25/19 03/25/19 History potassium chloride 10 meq PO BID 03/25/19 03/25/19 History sennosides-docusate sodium 1 tab PO UD PRN 03/25/19 03/25/19 History [Senokot-S] Allergies Allergy/AdvReac Type Severity Reaction Status Date / Time No Known Allergies Allergy Verified 03/25/19 04:05 Past Med/Surg History Medical History COPD (chronic obstructive pulmonary disease) Lung cancer Mitral regurgitation Surgical History S/P lobectomy of lung LLL, in 09/2017 Family History Father Hypertension Social History Preferred Language: [place] Communication Ability: Effective Visual Impairment: No Limitations Hearing Ability: Normal Beliefs That Will Affect Care: None Current Living Situation: Alone Feels Safe at Home: Yes Smoking Status: Current every day smoker Tobacco Type: cigarettes Cigarettes Per Day: 10-20 Second Hand Exposure: No Hx Alcohol Use: No Hx Substance Use: No Review of Systems See HPI for pertinent positives & negatives. and A total of 10 systems reviewed and were otherwise negative Physical Exam Vital Signs Vital Signs - 24 hr 03/25/19 02:15 03/25/19 02:17 03/25/19 02:20 Temperature 36.4 C L Temperature Source Oral Sepsis Recent Fever Within 48 Hours No Sepsis New/Unexplained Change in Mental Status No Sepsis Action Taken by Nursing No Action Required Pulse Rate 88 88 90 Pulse Rate [Right Finger] Pulse Rate from SpO2 Sensor 87 91 H Pulse Rhythm [Right Finger] Respiratory Rate 18 21 18 Respiratory Effort / Characteristics Non-Labored Respiratory Depth Normal Respiratory Pattern Blood Pressure 190/74 H 190/74 H Blood Pressure [Right Arm] Blood Pressure Mean 112 112 Blood Pressure Mean [Right Arm] Blood Pressure Position [Right Arm] Pulse Oximetry 81 L 90 92 Oxygen Delivery Method Room Air Oxygen Flow Rate 03/25/19 02:25 03/25/19 02:30 03/25/19 03:00 Temperature Temperature Source Sepsis Recent Fever Within 48 Hours Sepsis New/Unexplained Change in Mental Status Sepsis Action Taken by Nursing Pulse Rate 82 90 Pulse Rate [Right Finger] Pulse Rate from SpO2 Sensor 84 91 H Pulse Rhythm [Right Finger] Respiratory Rate 20 15 Respiratory Effort / Characteristics Respiratory Depth Respiratory Pattern Blood Pressure Blood Pressure [Right Arm] Blood Pressure Mean Blood Pressure Mean [Right Arm] Blood Pressure Position [Right Arm] Pulse Oximetry 94 90 Oxygen Delivery Method Nasal Cannula Oxygen Flow Rate 03/25/19 03:04 03/25/19 03:17 03/25/19 03:30 Temperature Temperature Source Sepsis Recent Fever Within 48 Hours Sepsis New/Unexplained Change in Mental Status Sepsis Action Taken by Nursing Pulse Rate 90 91 H Pulse Rate [Right Finger] 90 Pulse Rate from SpO2 Sensor 90 90 Pulse Rhythm [Right Finger] Respiratory Rate 20 21 21 Respiratory Effort / Characteristics Non-Labored Spontaneous Respiratory Depth Respiratory Pattern Blood Pressure 180/69 H Blood Pressure [Right Arm] Blood Pressure Mean 106 Blood Pressure Mean [Right Arm] Blood Pressure Position [Right Arm] Pulse Oximetry 90 100 100 Oxygen Delivery Method Nasal Cannula Oxygen Flow Rate 4 03/25/19 03:32 03/25/19 04:00 03/25/19 04:01 Temperature Temperature Source Sepsis Recent Fever Within 48 Hours Sepsis New/Unexplained Change in Mental Status Sepsis Action Taken by Nursing Pulse Rate 88 95 H 101 H Pulse Rate [Right Finger] Pulse Rate from SpO2 Sensor 88 95 H 98 H Pulse Rhythm [Right Finger] Respiratory Rate 24 15 19 Respiratory Effort / Characteristics Respiratory Depth Respiratory Pattern Blood Pressure 149/89 H 153/79 H Blood Pressure [Right Arm] Blood Pressure Mean 109 103 Blood Pressure Mean [Right Arm] Blood Pressure Position [Right Arm] Pulse Oximetry 100 97 98 Oxygen Delivery Method Nebulizer Nebulizer Oxygen Flow Rate 7 03/25/19 04:02 03/25/19 04:31 03/25/19 04:32 Temperature Temperature Source Sepsis Recent Fever Within 48 Hours Sepsis New/Unexplained Change in Mental Status Sepsis Action Taken by Nursing Pulse Rate 95 H 105 H 103 H Pulse Rate [Right Finger] Pulse Rate from SpO2 Sensor 95 H 98 H 85 Pulse Rhythm [Right Finger] Respiratory Rate 23 27 H 28 H Respiratory Effort / Characteristics Respiratory Depth Respiratory Pattern Blood Pressure 178/69 H Blood Pressure [Right Arm] Blood Pressure Mean 105 Blood Pressure Mean [Right Arm] Blood Pressure Position [Right Arm] Pulse Oximetry 98 98 100 Oxygen Delivery Method Oxygen Flow Rate 03/25/19 05:00 03/25/19 05:01 03/25/19 05:35 Temperature Temperature Source Sepsis Recent Fever Within 48 Hours Sepsis New/Unexplained Change in Mental Status Sepsis Action Taken by Nursing Pulse Rate 114 H 118 H Pulse Rate [Right Finger] 112 H Pulse Rate from SpO2 Sensor 109 H 71 Pulse Rhythm [Right Finger] Irregular Respiratory Rate 23 18 20 Respiratory Effort / Characteristics Non-Labored Respiratory Depth Normal Respiratory Pattern Regular Blood Pressure 148/67 H Blood Pressure [Right Arm] 161/88 H Blood Pressure Mean 94 Blood Pressure Mean [Right Arm] 112 Blood Pressure Position [Right Arm] Lying Pulse Oximetry 94 94 97 Oxygen Delivery Method Nasal Cannula Oxygen Flow Rate 2 4 03/25/19 05:40 Temperature Temperature Source Sepsis Recent Fever Within 48 Hours Sepsis New/Unexplained Change in Mental Status Sepsis Action Taken by Nursing Pulse Rate Pulse Rate [Right Finger] 92 H Pulse Rate from SpO2 Sensor Pulse Rhythm [Right Finger] Respiratory Rate 20 Respiratory Effort / Characteristics Respiratory Depth Respiratory Pattern Blood Pressure Blood Pressure [Right Arm] 144/79 H Blood Pressure Mean Blood Pressure Mean [Right Arm] 100 Blood Pressure Position [Right Arm] Lying Pulse Oximetry 95 Oxygen Delivery Method Nasal Cannula Oxygen Flow Rate 4 GENERAL: Awake, alert, cachectic-appearing, in no distress HENT: Normocephalic, atraumatic. Oropharynx unremarkable. EYES: Normal conjunctiva. Sclera non-icteric. NECK: Supple. No nuchal rigidity. FROM. No masses. RESPIRATORY: Bilateral wheezing. No rales. Normal respiratory effort. CARDIAC: Normal rate. Normal rhythm. No murmurs. No rubs. Extremities warm and well perfused. Pulses equal. No JVD. CHEST: Port in place in right anterior chest wall. GI: Soft, non-distended. No tenderness to palpation. No rebound or guarding. No masses. RECTAL: Deferred. MUSCULOSKELETAL: Atraumatic. Chest examination reveals no tenderness. The back is symmetrical on inspection without obvious abnormality. There is no CVA tenderness to palpation. No joint edema. LOWER EXTREMITIES: Calves are equal size bilaterally and non-tender. No edema. No discoloration. NEURO: Normal sensorium. No sensory or motor deficits noted. Course 0220: The patient was evaluated in room B06, and a complete history and physical examination were performed. 0325: I spoke to Dr. Héctor Garcias [facility] Hospitalist about the patient's case and she is going to accept her for further evaluation. 0350: I updated the patient on results and treatment plan. I also answered her questions in regards to medication. Consultations Consultation #1: I spoke to Dr. Héctor Garcias [facility] Hospitalist about the patient's case and she is going to accept her for further evaluation. Time: 03:25 Administered Medications Vancomycin HCl 1,000 mg/ (Sodium Chloride) 520 mls @ 200 mls/hr IV NOW ONE; Protocol Stop: 03/25/19 05:58 Last Admin: 03/25/19 05:26 Dose: 200 mls/hr Documented by: [id number] Ioversol (Optiray 320 125ml) 119 ml IV ONCE PRN PRN Reason: Interaction Checking Stop: 03/29/19 02:59 Last Admin: 03/25/19 03:00 Dose: 1 ml Documented by: [id number] Discontinued Medications Albuterol (Duoneb) 12 ml NEB ONE ONE Stop: 03/25/19 02:23 Last Admin: 03/25/19 03:04 Dose: 12 ml Documented by: [id number] Furosemide (Lasix) 40 mg IV NOW STA Stop: 03/25/19 03:24 Last Admin: 03/25/19 03:39 Dose: 40 mg Documented by: [id number] Piperacillin Sod/Tazobactam Sod (Zosyn) 4.5 gm in 120 mls @ 240 mls/hr IV NOW ONE Stop: 03/25/19 03:52 Last Infusion: 03/25/19 04:36 Dose: 0 mls/hr Documented by: [id number] Admin: 03/25/19 03:39 Dose: 240 mls/hr Documented by: [id number] Levofloxacin/Dextrose (Levaquin/D5w) 750 mg in 150 mls @ 100 mls/hr IV NOW STA Stop: 03/25/19 04:52 Last Admin: 03/25/19 04:35 Dose: 100 mls/hr Documented by: [id number] Methylprednisolone 60 mg/ (Syringe) 1.96 mls @ 1.5 mls/min IV NOW STA Stop: 03/25/19 03:24 Last Admin: 03/25/19 03:39 Dose: 1.5 mls/min Documented by: [id number] Methylprednisolone (Solumedrol) Confirm Administered Dose 125 mg .ROUTE .STK-MED ONE Stop: 03/25/19 03:35 Last Admin: 03/25/19 03:39 Dose: Not Given Documented by: [id number] Metoprolol Tartrate (Lopressor) Confirm Administered Dose 5 mg IV .STK-MED ONE Stop: 03/25/19 05:32 Last Admin: 03/25/19 05:34 Dose: 5 mg Documented by: [id number] Potassium Chloride (Klor-Con M20) 40 meq PO NOW STA Stop: 03/25/19 02:46 Last Admin: 03/25/19 03:19 Dose: 40 meq Documented by: [id number] Potassium Chloride (Klor-Con M20) 40 meq PO NOW STA Stop: 03/25/19 03:24 Last Admin: 03/25/19 03:39 Dose: 40 meq Documented by: [id number] Medical Decision Making Differential Diagnosis Differential diagnoses includes but is not limited to pneumonia, bronchitis, COPD/Asthma exacerbation, pneumothorax, pulmonary embolism, congestive heart failure, acute coronary syndrome Medical Records Attestation: I reviewed the patient's medical records. Home Medications Current Medication List: was personally reviewed by me Laboratory Data Attestation: I reviewed the patient's lab results. Result diagrams: 03/25/19 02:15 03/25/19 02:15 Lab Results 03/25/19 03/25/19 03/25/19 Range/Units 02:15 02:15 02:33 WBC 6.52 (4.8-10.8) K/uL RBC 3.44 L (4.2-5.4) M/uL Hgb 9.3 L (12.0-16.0) g/dL POC Hgb 8.5 L (12.0-16.0) g/dl Hct 28.8 L (37-47) % POC Hct 25 L (37-47) % MCV 83.7 (80-100) fL MCH 27.0 (25-34) pg MCHC 32.3 (32-36) g/dL RDW Std Deviation 48.6 H (36.4-46.3) fL RDW Coeff of Jose 16.0 H (11.5-14.5) % Plt Count 202 (130-400) K/uL MPV 8.9 (7.4-10.4) fL Immature Gran % (Auto) 0.2 % Neut % (Auto) 79.4 % Lymph % (Auto) 11.3 % Arthur % (Auto) 7.1 % Eos % (Auto) 1.7 % Baso % (Auto) 0.3 % Immature Gran # (Auto) 0.01 (0.00-0.02) K/uL Neut # (Auto) 5.18 (1.4-6.5) K/uL Lymph # (Auto) 0.74 L (1.2-3.4) K/uL Arthur # (Auto) 0.46 (0.11-0.59) K/uL Eos # (Auto) 0.11 (0-0.5) K/uL Baso # (Auto) 0.02 (0-0.2) K/uL POC Sodium 140 (135-144) mEq/L Sodium 139 (136-145) mmol/L POC Potassium 3.0 L (3.3-5.0) mEq/L Potassium 3.0 L (3.5-5.1) mmol/L POC Chloride 104 (101-112) mEq/L Chloride 108 H (98-107) mmol/L Carbon Dioxide 25 (21-32) mmol/L POC Total CO2 23 L (24-31) mEq/l Anion Gap 6.0 (3-11) POC Anion Gap 17.0 (16-25) mmol/L POC BUN 12 (7-18) mg/dl BUN 13 (7-18) mg/dl Creatinine 0.77 (0.6-1.2) mg/dl POC Creatinine 0.7 (0.6-1.3) mg/dl Est Cr Clr Drug Dosing 47.8 ml/min Est GFR ( Amer) 88.2 Est GFR (Non-Af Amer) 76.1 BUN/Creatinine Ratio 16.5 (10-20) Glucose 100 H (70-99) mg/dl POC Glucose (other) 103 H (70-99) mg/dl Calcium 7.7 L (8.5-10.1) mg/dl POC Ioniz Calcium Miles 1.04 L (1.12-1.32) mmol/l Total Bilirubin 0.3 (0.2-1) mg/dl AST 14 L (15-37) U/L ALT 8 L (12-78) U/L Alkaline Phosphatase 96 (45-117) U/L Total Creatine Kinase 14 L (26-192) U/L CK-MB (CK-2) 1.2 (0.5-3.6) ng/ml CK/CKMB % Calc 8.6 H (0-3.0) Troponin I 0.027 (0-0.045) ng/ml NT-Pro-B Natriuret Pep 3486 H (0-900) pg/ml Total Protein 6.2 L (6.4-8.2) gm/dl Albumin 1.9 L (3.4-5.0) gm/dl Globulin 4.3 H (2.5-4.0) gm/dl Albumin/Globulin Ratio 0.4 L (0.9-2) Lipase 99 (73-393) U/L Influenza Type A (PCR) (Neg) Influenza Type B (PCR) (Neg) Blood Type Antibody Screen 03/25/19 03/25/19 Range/Units 03:00 03:43 WBC (4.8-10.8) K/uL RBC (4.2-5.4) M/uL Hgb (12.0-16.0) g/dL POC Hgb (12.0-16.0) g/dl Hct (37-47) % POC Hct (37-47) % MCV (80-100) fL MCH (25-34) pg MCHC (32-36) g/dL RDW Std Deviation (36.4-46.3) fL RDW Coeff of Jose (11.5-14.5) % Plt Count (130-400) K/uL MPV (7.4-10.4) fL Immature Gran % (Auto) % Neut % (Auto) % Lymph % (Auto) % Arthur % (Auto) % Eos % (Auto) % Baso % (Auto) % Immature Gran # (Auto) (0.00-0.02) K/uL Neut # (Auto) (1.4-6.5) K/uL Lymph # (Auto) (1.2-3.4) K/uL Arthur # (Auto) (0.11-0.59) K/uL Eos # (Auto) (0-0.5) K/uL Baso # (Auto) (0-0.2) K/uL POC Sodium (135-144) mEq/L Sodium (136-145) mmol/L POC Potassium (3.3-5.0) mEq/L Potassium (3.5-5.1) mmol/L POC Chloride (101-112) mEq/L Chloride (98-107) mmol/L Carbon Dioxide (21-32) mmol/L POC Total CO2 (24-31) mEq/l Anion Gap (3-11) POC Anion Gap (16-25) mmol/L POC BUN (7-18) mg/dl BUN (7-18) mg/dl Creatinine (0.6-1.2) mg/dl POC Creatinine (0.6-1.3) mg/dl Est Cr Clr Drug Dosing ml/min Est GFR ( Amer) Est GFR (Non-Af Amer) BUN/Creatinine Ratio (10-20) Glucose (70-99) mg/dl POC Glucose (other) (70-99) mg/dl Calcium (8.5-10.1) mg/dl POC Ioniz Calcium Miles (1.12-1.32) mmol/l Total Bilirubin (0.2-1) mg/dl AST (15-37) U/L ALT (12-78) U/L Alkaline Phosphatase (45-117) U/L Total Creatine Kinase (26-192) U/L CK-MB (CK-2) (0.5-3.6) ng/ml CK/CKMB % Calc (0-3.0) Troponin I (0-0.045) ng/ml NT-Pro-B Natriuret Pep (0-900) pg/ml Total Protein (6.4-8.2) gm/dl Albumin (3.4-5.0) gm/dl Globulin (2.5-4.0) gm/dl Albumin/Globulin Ratio (0.9-2) Lipase (73-393) U/L Influenza Type A (PCR) Neg for Influ A (Neg) Influenza Type B (PCR) Neg for Influ B (Neg) Blood Type A Positive Antibody Screen NEGATIVE Imaging Data Attestation: I personally reviewed and interpreted this imaging study as follows: My Impression: CHEST XRAY 1 View Infiltrate in the right upper lobe. No evidence of congestion or PTX. Port noted in right chest. Radiologist's Impression: Radiology results as stated below per my review and the radiologist's interpretation: CTA CHEST: No PE. No aortic dissection or aneurysm. Moderate right and small left pleural effusions. Emphysema. Peribronchial thickening with right upper and lower lobe atelectasis. Groundglass opacities in the right upper and lower lobes were not present on the prior scan and may represent infiltrate or atelectasis. No pneumothorax. Central line near the cavoatrial junction. Radiologist: Jag Betancur MD Study ready at 03:09 and initial results transmitted at 03:13 ECG Data Attestation: I personally reviewed and interpreted this ECG as follows: Indication: SOB/dyspnea Rate (beats per minute): 89 Rhythm: normal sinus Findings: + other (LVH); no ST depression and no ST elevation Blood Pressure Blood Pressure Findings: Elevated blood pressure Blood Pressure Disposition: further management by hospitalist [facility] Narrative This is a 74-year-old female who presents emergency department complaining of shortness of breath. Patient is not normally on oxygen however is requiring 4 L here in the emergency department. She was given an hour-long breathing treatment. In the meantime patient's chest x-ray is concerning for a large infiltrate in the right upper lobe. Because of how large this was and the patient's hypoxia she was sent for CAT scan of the chest. This did not show any evidence of a PE. In addition the patient is also anemic so she was typed and screened. The patient is already on antibiotics so her coverage was expanded. She was given Zosyn Levaquin and vancomycin here in the emergency department. She was also given Solu-Medrol. Her potassium was also repleted. I did discuss her case with the hospitalist service who did agree to admit the patient. Impression & Plan Pneumonia, Hypoxia Critical Care Time I have personally spent greater than 30 minutes of critical care time in the direct management of this patient. This includes bedside care, interpretation of diagnostic studies, and testing, discussion with consultants, patient, and family members, and other required patient management activities. This 30 minutes is in excess of all separately billable procedures. Critical Care Time: Yes Total Critical Care Time: 30 Discharge Plan Visit Data Chief Complaint: Shortness of Breath/Dyspnea ED Provider: Deshawn Lala Discharge Problem: Pneumonia, Hypoxia Patient Disposition: Being Evaluated by Hospitalist Forms Stand Alone Forms: My [facility] Prescriptions Prescriptions: No Action diltiazem HCl 240 mg Capsule,Extended Release 24 Hr 240 mg PO DAILY RF: 0 docusate sodium [Colace] 100 mg Capsule 100 mg PO BID RF: 0 nicotine [Nicoderm CQ] 21 mg/24 hr Patch 24 Hour 21 mg transdermal QAM PRN (Reason: nicotine craving) Qty: 7 RF: 0 losartan 100 mg tablet 100 mg PO DAILY Qty: 30 RF: 0 tramadol 50 mg Tablet 50 mg PO Q4H PRN (Reason: pain) Qty: 18 RF: 0 Lactobacillus acidoph-L.bulgar [Floranex] 1 million cell Tablet 4 tab PO TIDM Qty: 360 RF: 0 ampicillin sodium 2 gram recon soln 2 gm IV Q6H 34 Days Qty: 136 RF: 0 alprazolam 0.5 mg Tablet 0.5 mg PO DAILY Qty: 3 RF: 0 Xarelto 20 mg Tablet 20 mg PO PM Qty: 0 RF: 0 polyethylene glycol 3350 [Miralax] 17 gram/dose Powder 17 g PO DAILY RF: 0 ceftriaxone 2 gram recon soln 2 gm IV Q12 RF: 0 albuterol sulfate 2.5 mg /3 mL (0.083 %) solution for nebulization 2.5 mg NEB Q4H PRN (Reason: Wheezing) RF: 0 acetaminophen [Tylenol] 325 mg Tablet 650 mg PO Q4 PRN (Reason: pain on scale 1-3) RF: 0 potassium chloride 10 mEq Capsule, Extended Release 10 meq PO BID RF: 0 sennosides-docusate sodium [Senokot-S] 8.6-50 mg Tablet 1 tab PO UD PRN (Reason: Constipation) RF: 0 polyethylene glycol 3350 [Miralax] 17 gram/dose Powder 17 g PO UD PRN (Reason: Constipation) RF: 0 Referrals Referrals: [facility] [Other] Discharge Problem: Pneumonia Qualifiers: Pneumonia type: due to unspecified organism Laterality: right Lung location: upper lobe of lung Qualified Code(s): J18.1 - Lobar pneumonia, unspecified organism The scribe's documentation has been prepared under my direction and personally reviewed by me in its entirety. I confirm that the note above accurately reflects all work, treatment, procedures, and medical decision making performed by me.
--- NOTE | 2019-03-25 06:32 | XRay Report ---
XR chest 1V portable HISTORY: 74 years-old Female Chest Pain acute atypical chest pain with shortness of breath COMPARISON: Chest radiograph 03/10/2019, CTA chest 03/25/2019 TECHNIQUE: Portable AP view of the chest FINDINGS: Cardiomediastinal and hilar silhouettes are within normal limits. Surgical clips project over the lef t hilum. Calcification of the thoracic aortic arch. Small bilateral pleural effusions with right grea ter than left bibasilar consolidation. Additional consolidative opacities are noted about the right u pper lobe. Severe emphysema with chronic interstitial coarsening. No pneumothorax. Degenerative gentile es of the shoulders and spine. Right internal jugular central venous catheter is noted with distal ti p projecting within the region of the mid to inferior aspect of the SVC. IMPRESSION: 1. Right upper lobe and right greater than left bibasilar alveolar opacities are suggestive of multif ocal pneumonia. 2. Small bilateral pleural effusions. 3. Severe emphysema with chronic interstitial coarsening. The above report was generated using voice recognition software. It may contain grammatical, syntax o r spelling errors. Electronically signed by: Junior Rocha M.D. 03/25/2019 6:31 AM
[2019-03-25] MEDS ORDERED: AMPICILLIN SODIUM 2 GM IV SCH (06:39)
[2019-03-25] MEDS ORDERED: DOCUSATE SODIUM/SENNA 50/8.6MG TAB PO PRN (06:39)
[2019-03-25] MEDS ORDERED: TRAMADOL HCL 50 MG TABLET PO PRN (06:39)
--- NOTE | 2019-03-25 07:03 | CT Scan Report ---
CT ANGIOGRAPHY OF THE CHEST, PULMONARY EMBOLUS PROTOCOL CLINICAL HISTORY: Shortness of breath. Chest pain. COMPARISON STUDY: Chest CT March 10, 2019. Chest radiograph March 25, 2019. TECHNIQUE: Following IV administration of 119 mL of Optiray-320, helical axial images of the chest we re obtained utilizing the pulmonary embolus protocol. Maximal intensity projections and sagittal and coronal reformats were viewed on an independent 3D workstation. IV contrast was administered withou t complication. Automated exposure control was utilized for the study. A dose lowering technique wa s utilized adhering to the principles of ALARA. CT DOSE: 246.53 mGy.cm FINDINGS: No pleural emboli are identified. There is no thoracic aortic dissection. Right internal j ugular Ectufm-a-Guqi is in place. Moderate cardiomegaly. There is no pericardial effusion. Moderate r ight and small left pleural effusions have increased in size since CT of March 10, 2019. There is no pneumothorax. Severe emphysema is noted. Right upper and right lower lobe airspace opacity favors pne umonia. Additional groundglass opacities within the lungs are noted. Lungs are suboptimally assessed due to respiratory motion. The central airways are patent. There is no thoracic lymphadenopathy. The patient is status post left lower lobectomy. Evidence for discitis/osteomyelitis at T11-T12 is unchan ged since MRI of March 10, 2019. IMPRESSION: 1. No pulmonary emboli identified. 2. Moderate right and small left pleural effusions which have increased in size since CT of March 10, 2019. 3. Right upper and right lower lobe air space opacities which favor pneumonia. Atelectasis could appe ar similar although is considered less likely. Additional ground glass opacities within the lungs. 4. Evidence for discitis/osteomyelitis at T11-T12 which is similar to MRI of March 10, [address] of the abdomen and pelvis of March 14, 2019. Electronically signed by: Jason Syed M.D. 03/25/2019 7:02 AM
[2019-03-25] MEDS: LEVALBUTEROL HCL 0.63 MG/3 ML NEB NEB SCH ×3 (07:45→18:59)
[2019-03-25] MEDS: POLYETHYLENE (MIRALAX) 17 GM PACK PO SCH (08:10)
[2019-03-25] MEDS: DOCUSATE SODIUM 100 MG CAP PO SCH ×2 (08:10→20:23)
[2019-03-25] MEDS: ALPRAZolam 0.5 MG TABLET PO SCH (08:12)
[2019-03-25] MEDS: POTASSIUM CHLORIDE 10 MEQ TABCR PO SCH ×2 (08:13→20:24)
[2019-03-25] MEDS: LACTOBACILLUS ACIDOPHILUS (FLORANEX) TAB PO SCH ×3 (08:14→18:11)
[2019-03-25] MEDS: dilTIAZem HCL 240 MG CAPCR PO SCH (08:14)
[2019-03-25] MEDS: AMPICILLIN 2,000 MG in SODIUM CHLOR 0.9% AD-VAN 100 ML IV SCH ×3 (08:16→19:37)
[2019-03-25] MEDS ORDERED: NON-FORMULARY MEDICATION (Ceftriaxone 2 GM) IV SCH (09:00)
[2019-03-25] MEDS ORDERED: LOSARTAN POTASSIUM 50 MG TAB PO SCH (09:00)
[2019-03-25] MEDS ORDERED: POLYETHYLENE (MIRALAX) 17 GM PACK PO PRN (09:00)
[2019-03-25] MEDS: cefTRIAXone SODIUM 2,000 MG in DEXTROSE 5% 50 ML IV SCH ×2 (10:30→22:17)
[2019-03-25] MEDS: ACETAMINOPHEN 325 MG TAB PO PRN ×2 (13:54→18:11)
--- NOTE | 2019-03-25 13:55 | Family Medicine Progress Note ---
Date of Service March 25, 2019 Assessment & Plan (1) Shortness of breath: 74-year-old female with PMH L Lung ca, RA, paroxysmal A fib, smoker, HTN, spinal discitis was admitted on 25 Mar 2019 for very acute shortness of breath. Of note, she was an inpatient from March 10 to March 21 for infective endocarditis amongst other issues. - Patient woke from sleep early 10May with feeling of SOB. Noted anxiety from this as well. She denies recent fevers or feeling of illness since hospital discharge. - On arrival, was SpO2 81% on room air. Improved to 90% with 4 L nasal cannula. Now 95% on 1L NC. Will try to wean off of supplemental oxygen. -CTA chest (overnight read) notes no PE. No aortic dissection or aneurysm. Moderate right and small left pleural effusions. New groundglass opacities in right upper and lower lobes not previously present. Repeat EKG after her neb notes some tachycardia with PACs and a couplet. Hypoxia - possibly from aspiration event. - Ground glass opacities in RUL and RLL. - Unlikely it is HAP given no fever or leukocytosis. WBC 6, negative for inf luenza A and B. Lactate 2.5 (repeat normal 1.9), procal .17, nasal MRSA neg. Will continue endocarditis antibiotics (see below). Repeat blood cultures pending. In ED: Given methylprednisolone 60 mg x 1, vancomycin, Zosyn, and Levaquin. -Already on rocephin and ampicillin for IE - should be appropirate coverage. -Scheduled xopenex nebs -No sign of aspiration during eating and drinking at bedside. follow Infective endocarditis - Mitral valve and aortic valve infection of Enterococcus faecalis thought to be from her [id number]. Discharged on ampicillin and Rocephin with planned antibiotic end date around April 24. Apparently was unable to get PICC due to vessel size. Velásquez PowerPort placed for long-term antibiotics. - Continue prior ampicillin and ceftriaxone. Pleural effusions -As above, seen on CTA chest. BNP 3500. TTE on 10Mar2019 noted EF 60-65% with mild LVH. - In ED, given Lasix 40 mg IV x1. We will treat her breathing difficulties as above. Anemia - Previous positive Hemoccult. 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 Seen by hematology, did not suspect MDS. Was transfused on last admission. Planned EGD and colonoscopy as outpatient was delayed due to her endocarditis. - Admit Hb 9.3. No reports of acute bleeding. No signs or sxs of anemia. Will cont to monitor HTN - Continue home diltiazem, losartan, potassium. -Has not been well controlled looking back at records. Increased losartan to 150 mg for AM, will cont on d/c -Consider outpt sleep study Paroxysmal atrial fibrillation - Continue diltiazem and xarelto. Rheumatoid arthritis -Stable Not presently on any DMARDs. Anxiety - Continue home Xanax. Spinal discitis - T11-T12 as well as L3-L4. Seen by orthopedics during previous admission, no surgical intervention recommended at that time. Has some ongoing back pain, so continue home tramadol. Cognitive impairment - Concerns for same / dementia on last admission. MRI of her brain was negative for septic emboli. Dr. Anaya spoke with [id number]. Apparently the patient has been more confused in recent weeks. Will cont to monitor FEN/GI: Heart healthy DVT prophylaxis: Xarelto Dispo: Cont on telem. Likely d/c tomorrow to [facility]. PT/OT today Full Code Supervising Physician Co-Signing Physician Notes Resident Physician Supervision Note: I independently interviewed and examined the patient and verified the swan history and physical, reviewed labs and image studies, discussed the case with the resident Dr. Araya and agree with the findings and care plan. Subjective 74 y/o F found in bed this AM in NAD. No acute overnight events. Tolerating PO intake. No issues voiding. Denies SOB, CP, orthopnea. No other acute concerns or complaints. Ok with plan to go back to [facility]. Review of Systems Review of Systems: All systems reviewed & are unremarkable except as noted in HPI & below Physical Exam Constitutional: WD/WN, vitals as above Eyes: PERRL, conjunctivae normal, anicteric sclerae ENMT: external ear and nose normal, oropharynx normal Neck: R neck incision c/d/i Respiratory: normal respiratory effort, lungs clear to auscultation Cardiovascular: RRR, no murmur, no edema Gastrointestinal (Abdomen): normal bowel sounds, soft, nontender, no hepatosplenomegaly Skin: no rashes, warm and dry Psychiatric: A+Ox3, euthymic affect Results & Data Vital Signs (Past 12 Hours) Vital Signs Temp Pulse Pulse Pulse Resp BP BP 03/25/19 11:34 36.8 C 90 18 170/67 H 03/25/19 07:46 85 20 03/25/19 07:35 93 H 03/25/19 06:20 36.4 C L 92 H 18 185/74 H 03/25/19 06:04 90 18 159/76 H 03/25/19 05:40 92 H 20 144/79 H 03/25/19 05:35 112 H 20 161/88 H 03/25/19 05:01 118 H 18 148/67 H 03/25/19 05:00 114 H 23 03/25/19 04:32 103 H 28 H 178/69 H 03/25/19 04:31 105 H 27 H 03/25/19 04:02 95 H 23 03/25/19 04:01 101 H 19 153/79 H 03/25/19 04:00 95 H 15 03/25/19 03:32 88 24 149/89 H 03/25/19 03:30 91 H 21 03/25/19 03:17 90 21 180/69 H 03/25/19 03:04 90 20 03/25/19 03:00 90 15 03/25/19 02:30 82 20 03/25/19 02:20 90 18 03/25/19 02:17 88 21 190/74 H 03/25/19 02:15 36.4 C L 88 18 190/74 H Pulse Ox 03/25/19 11:34 95 03/25/19 07:46 90 03/25/19 07:35 03/25/19 06:20 97 03/25/19 06:04 100 03/25/19 05:40 95 03/25/19 05:35 97 03/25/19 05:01 94 03/25/19 05:00 94 03/25/19 04:32 100 03/25/19 04:31 98 03/25/19 04:02 98 03/25/19 04:01 98 03/25/19 04:00 97 03/25/19 03:32 100 03/25/19 03:30 100 03/25/19 03:17 100 03/25/19 03:04 90 03/25/19 03:00 90 03/25/19 02:30 94 03/25/19 02:20 92 03/25/19 02:17 90 03/25/19 02:15 81 L Laboratory Results Laboratory Results - last 24 hr 03/25/19 03/25/19 03/25/19 02:15 02:15 02:15 WBC 6.52 RBC 3.44 L Hgb 9.3 L POC Hgb Hct 28.8 L POC Hct MCV 83.7 MCH 27.0 MCHC 32.3 RDW Std Deviation 48.6 H RDW Coeff of Jose 16.0 H Plt Count 202 MPV 8.9 Immature Gran % (Auto) 0.2 Neut % (Auto) 79.4 Lymph % (Auto) 11.3 Real % (Auto) 7.1 Eos % (Auto) 1.7 Baso % (Auto) 0.3 Immature Gran # (Auto) 0.01 Neut # (Auto) 5.18 Lymph # (Auto) 0.74 L Real # (Auto) 0.46 Eos # (Auto) 0.11 Baso # (Auto) 0.02 POC Sodium Sodium 139 POC Potassium Potassium 3.0 L POC Chloride Chloride 108 H Carbon Dioxide 25 POC Total CO2 Anion Gap 6.0 POC Anion Gap POC BUN BUN 13 Creatinine 0.77 POC Creatinine Est Cr Clr Drug Dosing 47.8 Est GFR ( Amer) 88.2 Est GFR (Non-Af Amer) 76.1 BUN/Creatinine Ratio 16.5 Glucose 100 H POC Glucose (other) Lactate Calcium 7.7 L POC Ioniz Calcium Miles Total Bilirubin 0.3 AST 14 L ALT 8 L Alkaline Phosphatase 96 Total Creatine Kinase 14 L CK-MB (CK-2) 1.2 CK/CKMB % Calc 8.6 H Troponin I 0.027 NT-Pro-B Natriuret Pep 3486 H Total Protein 6.2 L Albumin 1.9 L Globulin 4.3 H Albumin/Globulin Ratio 0.4 L Lipase 99 Procalcitonin 0.17 Nasal Screen MRSA (PCR) Influenza Type A (PCR) Influenza Type B (PCR) Blood Type Antibody Screen 03/25/19 03/25/19 03/25/19 02:33 03:00 03:43 WBC RBC Hgb POC Hgb 8.5 L Hct POC Hct 25 L MCV MCH MCHC RDW Std Deviation RDW Coeff of Jose Plt Count MPV Immature Gran % (Auto) Neut % (Auto) Lymph % (Auto) Real % (Auto) Eos % (Auto) Baso % (Auto) Immature Gran # (Auto) Neut # (Auto) Lymph # (Auto) Real # (Auto) Eos # (Auto) Baso # (Auto) POC Sodium 140 Sodium POC Potassium 3.0 L Potassium POC Chloride 104 Chloride Carbon Dioxide POC Total CO2 23 L Anion Gap POC Anion Gap 17.0 POC BUN 12 BUN Creatinine POC Creatinine 0.7 Est Cr Clr Drug Dosing Est GFR ( Amer) Est GFR (Non-Af Amer) BUN/Creatinine Ratio Glucose POC Glucose (other) 103 H Lactate Calcium POC Ioniz Calcium Miles 1.04 L Total Bilirubin AST ALT Alkaline Phosphatase Total Creatine Kinase CK-MB (CK-2) CK/CKMB % Calc Troponin I NT-Pro-B Natriuret Pep Total Protein Albumin Globulin Albumin/Globulin Ratio Lipase Procalcitonin Nasal Screen MRSA (PCR) Influenza Type A (PCR) Neg for Influ A Influenza Type B (PCR) Neg for Influ B Blood Type A Positive Antibody Screen NEGATIVE 03/25/19 03/25/19 05:30 05:33 WBC RBC Hgb POC Hgb Hct POC Hct MCV MCH MCHC RDW Std Deviation RDW Coeff of Jose Plt Count MPV Immature Gran % (Auto) Neut % (Auto) Lymph % (Auto) Real % (Auto) Eos % (Auto) Baso % (Auto) Immature Gran # (Auto) Neut # (Auto) Lymph # (Auto) Real # (Auto) Eos # (Auto) Baso # (Auto) POC Sodium Sodium POC Potassium Potassium POC Chloride Chloride Carbon Dioxide POC Total CO2 Anion Gap POC Anion Gap POC BUN BUN Creatinine POC Creatinine Est Cr Clr Drug Dosing Est GFR ( Amer) Est GFR (Non-Af Amer) BUN/Creatinine Ratio Glucose POC Glucose (other) Lactate 2.5 H* Calcium POC Ioniz Calcium Miles Total Bilirubin AST ALT Alkaline Phosphatase Total Creatine Kinase CK-MB (CK-2) CK/CKMB % Calc Troponin I NT-Pro-B Natriuret Pep Total Protein Albumin Globulin Albumin/Globulin Ratio Lipase Procalcitonin Nasal Screen MRSA (PCR) Negative Influenza Type A (PCR) Influenza Type B (PCR) Blood Type Antibody Screen Medications Administered Current Inpatient Medications Acetaminophen (Tylenol) 650 mg PO Q4 PRN PRN Reason: pain on scale 1-3 Stop: 04/24/19 06:38 Last Admin: 03/25/19 13:54 Dose: 650 mg Documented by: Alprazolam (Xanax) 0.5 mg PO DAILY SHARONA Stop: 04/24/19 08:59 Last Admin: 03/25/19 08:12 Dose: 0.5 mg Documented by: Diltiazem HCl (Cardizem Cd) 240 mg PO DAILY SHARONA Stop: 04/24/19 08:59 Last Admin: 03/25/19 08:14 Dose: 240 mg Documented by: Docusate Sodium (Colace) 100 mg PO BID SHARONA Stop: 04/24/19 08:59 Last Admin: 03/25/19 08:10 Dose: Not Given Documented by: Ampicillin Sodium 2,000 mg/ (Sodium Chloride) 100 mls @ 200 mls/hr IV Q6H SHARONA Stop: 05/06/19 07:59 Last Admin: 03/25/19 13:54 Dose: 200 mls/hr Documented by: Ceftriaxone Sodium 2,000 mg/ (Dextrose) 70 mls @ 100 mls/hr IV Q12H SHARONA Stop: 05/06/19 09:59 Last Infusion: 03/25/19 11:14 Dose: Infused Documented by: Lactobacillus Acidophilus (Floranex) 4 tab PO TIDM SHARONA Stop: 04/24/19 07:59 Last Admin: 03/25/19 12:10 Dose: 4 tab Documented by: Levalbuterol HCl (Xopenex 0.63 Mg/3 Ml Neb) 0.63 mg NEB Q6R SHARONA Stop: 04/24/19 07:59 Last Admin: 03/25/19 07:45 Dose: 0.63 mg Documented by: Losartan Potassium (Cozaar) 100 mg PO DAILY SHARONA Stop: 04/24/19 08:59 Last Admin: 03/25/19 08:13 Dose: 100 mg Documented by: Polyethylene Glycol (Miralax Powder Packet) 17 gm PO QAM SHARONA Stop: 04/24/19 08:59 Last Admin: 03/25/19 08:10 Dose: Not Given Documented by: Polyethylene Glycol (Miralax Powder Packet) 17 gm PO QAM PRN PRN Reason: CONSTIPATION Stop: 04/24/19 08:59 Potassium Chloride (Klor-Con M10) 10 meq PO BID SHARONA Stop: 04/24/19 08:59 Last Admin: 03/25/19 08:13 Dose: 10 meq Documented by: Rivaroxaban (Xarelto) 20 mg PO PM SHARONA Stop: 04/24/19 20:59 Senna/Docusate Sodium (Senokot S) 1 tab PO DAILY PRN PRN Reason: Constipation Stop: 04/24/19 06:38 Tramadol HCl (Ultram) 50 mg PO Q4H PRN PRN Reason: pain Stop: 04/24/19 06:38 Resident Activity Tracking Resident Involvement: Resident Care Provided Care Provided: Adult Hospital Medicine
[2019-03-25] MEDS: RIVAROXABAN 20 MG TAB PO SCH (20:24)
[2019-03-26] MEDS: LEVALBUTEROL HCL 0.63 MG/3 ML NEB NEB SCH ×4 (01:58→19:18)
[2019-03-26] MEDS: AMPICILLIN 2,000 MG in SODIUM CHLOR 0.9% AD-VAN 100 ML IV SCH ×4 (02:08→21:07)
[2019-03-26 05:44] LABS: Hematocrit (blood only) 25.5 % (37-47); Hemoglobin 8.2 g/dL (12.0-16.0); Immature Granulocytes # (auto) 0.05 K/uL (0.00-0.02); Immature Granulocytes % (auto) 0.5 %; Lymphocytes % (auto) 8.4 %; Mean Corpuscular Hgb Conc 32.2 g/dL (32-36); Mean Corpuscular Volume 84.7 fL (80-100); Mean Platelet Volume 9.4 fL (7.4-10.4); Monocytes % (auto) 4.6 %; Neutrophils # (auto) 9.32 K/uL (1.4-6.5); Neutrophils % (auto) 86.5 %; Platelet Count 214 K/uL (130-400); RDW Coefficient of Variation 16.6 % (11.5-14.5); RDW Standard Deviation 50.2 fL (36.4-46.3); Red Blood Count 3.01 M/uL (4.2-5.4); White Blood Count 10.77 K/uL (4.8-10.8)
[2019-03-26 06:22] LABS: BUN Creatinine Ratio 21.3 (10-20); Calcium 8.1 mg/dl (8.5-10.1); Creatinine Clr Calc Pharmacy 38.7 ml/min; Est GFR (African American) 76.1; Est GFR (Non-African American) 65.6
[2019-03-26 06:28] LABS: Albumin Globulin Ratio 0.5 (0.9-2); Bilirubin,Total 0.3 mg/dl (0.2-1); Globulin 3.9 gm/dl (2.5-4.0); Total Protein 5.9 gm/dl (6.4-8.2)
[2019-03-26 06:55] LABS: Potassium 4.3 mmol/L (3.5-5.1)
[2019-03-26] MEDS: POLYETHYLENE (MIRALAX) 17 GM PACK PO SCH (07:40)
[2019-03-26] MEDS: DOCUSATE SODIUM 100 MG CAP PO SCH ×2 (07:40→21:07)
[2019-03-26] MEDS: ALPRAZolam 0.5 MG TABLET PO SCH (07:42)
[2019-03-26] MEDS: ACETAMINOPHEN 325 MG TAB PO PRN ×2 (07:43→14:40)
[2019-03-26] MEDS: LOSARTAN POTASSIUM 50 MG TAB PO SCH (07:44)
[2019-03-26] MEDS: dilTIAZem HCL 240 MG CAPCR PO SCH (07:46)
[2019-03-26] MEDS: LACTOBACILLUS ACIDOPHILUS (FLORANEX) TAB PO SCH ×3 (07:47→16:28)
[2019-03-26] MEDS: POTASSIUM CHLORIDE 10 MEQ TABCR PO SCH ×2 (07:48→21:08)
[2019-03-26] MEDS: cefTRIAXone SODIUM 2,000 MG in DEXTROSE 5% 50 ML IV SCH ×2 (09:21→21:48)
[2019-03-26] MEDS ORDERED: IRON SUCROSE 100 MG in 0.9 % SODIUM CHLORIDE 100 ML IV ONE (11:00)
--- NOTE | 2019-03-26 11:58 | Discharge Summary ---
Date of Service March 26, 2019 Admission HPI Per Admitting Provider 74-year-old female was brought to the emergency department by EMS for acute shortness of breath. Of note, the patient was an inpatient from March 10 to March 21 for infective endocarditis amongst other issues. She was discharged to [facility]. Patient says that over the past interval days she did not notice any particular acute health concerns. - Patient says that this morning around 1 AM she woke from sleep with the acute feeling of shortness of breath. She says this made her quite anxious, including the idea she would have to come back to the hospital. She denies any recent fevers, chest pain or shortness of breath, or feeling of illness. - Here in the emergency department, patient says at present she feels quite fine. 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 She says that at this point she does not wish to return to [facility] and would prefer to be discharged back to her own home. She says she lives alone but could get help. 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 --- Past medical history includes left lung cancer, rheumatoid arthritis, paroxysmal atrial fibrillation, smoker, hypertension, spinal discitis. --- Past surgical history includes left lower lobe lobectomy in 2017. --- Social history includes current smoker of up to 1 pack/day. Denies alcohol use. Usually lives at home alone. Discharge Exam Constitutional WD/WN, vitals as above Eyes PERRL, conjunctivae normal, anicteric sclerae ENMT external ear and nose normal, oropharynx normal Respiratory normal respiratory effort, lungs clear to auscultation Cardiovascular RRR, no murmur, no edema Gastrointestinal (Abdomen) normal bowel sounds, soft, nontender, no hepatosplenomegaly Skin no rashes, warm and dry Psychiatric A+Ox3, euthymic affect Discharge Data Allergies Allergy/AdvReac Type Severity Reaction Status Date / Time No Known Allergies Allergy Verified 03/25/19 04:05 Consultations 03/25/19 03:23 ED Decision to Admit Stat 03/25/19 06:39 Consult Case Management - Discharge Planning Routine Ordered Studies 03/25/19 02:23 CT angio chest PE protocol Urgent Hospital Course (1) Shortness of breath: 74-year-old female with PMH L Lung ca, RA, paroxysmal A fib, smoker, HTN, spinal discitis was admitted on 25 Mar 2019 for very acute shortness of breath. Of note, she was an inpatient from March 10 to March 21 for infective endocarditis amongst other issues. Shortness of breath - Patient woke from sleep early 10May with feeling of SOB. Noted anxiety from this as well. She denies recent fevers or feeling of illness since hospital discharge. - On arrival, was SpO2 81% on room air. Improved to 90% with 4 L nasal cannula. Now 95% on 1L NC. Will try to wean off of supplemental oxygen. -CTA chest (overnight read) notes no PE. No aortic dissection or aneurysm. Moderate right and small left pleural effusions. New groundglass opacities in right upper and lower lobes not previously present. Repeat EKG after her neb notes some tachycardia with PACs and a couplet. - Unclear exact etiology of this SOB/ hypoxia, but anxiety likely played a role (pt agrees to this). -Scheduled xopenex nebs - Unlikely it is HAP given no fever or leukocytosis. WBC 6, negative for influenza A and B. Lactate 2.5 (repeat normal 1.9), procal .17, nasal MRSA neg. Will continue endocarditis antibiotics (see below). Repeat blood cultures pending. In ED: Given methylprednisolone 60 mg x 1, vancomycin, Zosyn, and Levaquin. Infective endocarditis - Mitral valve and aortic valve infection of Enterococcus faecalis thought to be from her [id number]. Discharged on ampicillin and Rocephin with planned antibiotic end date around April 24. Apparently was unable to get PICC due to vessel size. Velásquez PowerPort placed for long-term antibiotics. - Continue prior ampicillin and ceftriaxone. Pleural effusions -As above, seen on CTA chest. BNP 3500. TTE on 10Mar2019 noted EF 60-65% with mild LVH. - In ED, given Lasix 40 mg IV x1. We will treat her breathing difficulties as above. Anemia - Previous positive Hemoccult. Suspected anemia of chronic inflammation. Seen by hematology, did not suspect MDS. Was transfused on last admission. Planned EGD and colonoscopy as outpatient was delayed due to her endocarditis. - Admit Hb 9.3. No reports of acute bleeding. No signs or sxs of anemia. Will cont to monitor HTN - Continue home diltiazem, losartan, potassium. -Has not been well controlled looking back at records. Increased losartan to 150 mg for AM, will cont on d/c -Consider outpt sleep study Paroxysmal atrial fibrillation - Continue diltiazem and xarelto. Rheumatoid arthritis -Stable Not presently on any DMARDs. Anxiety - Continue home Xanax. Spinal discitis - T11-T12 as well as L3-L4. Seen by orthopedics and previous admission, no surgical intervention recommended at that time. Has some ongoing back pain, so continue home tramadol. Cognitive impairment - Concerns for same / dementia on last admission. MRI of her brain was negative for septic emboli. Dr. Anaya spoke with [id number]. Apparently the patient has been more confused in recent weeks. Will cont to monitor FEN/GI: Heart healthy DVT prophylaxis: Xarelto Dispo: Cont on telem. Likely d/c tomorrow to [facility]. PT/OT today Full Code Discharge Plan Discharge Items Reason For Visit: DYSPNEA, HYPOXIA Prescriptions: No Action diltiazem HCl 240 mg Capsule,Extended Release 24 Hr 240 mg PO DAILY RF: 0 docusate sodium [Colace] 100 mg Capsule 100 mg PO BID RF: 0 nicotine [Nicoderm CQ] 21 mg/24 hr Patch 24 Hour 21 mg transdermal QAM PRN (Reason: nicotine craving) Qty: 7 RF: 0 losartan 100 mg tablet 100 mg PO DAILY Qty: 30 RF: 0 tramadol 50 mg Tablet 50 mg PO Q4H PRN (Reason: pain) Qty: 18 RF: 0 Lactobacillus acidoph-L.bulgar [Floranex] 1 million cell Tablet 4 tab PO TIDM Qty: 360 RF: 0 ampicillin sodium 2 gram recon soln 2 gm IV Q6H 34 Days Qty: 136 RF: 0 alprazolam 0.5 mg Tablet 0.5 mg PO DAILY Qty: 3 RF: 0 Xarelto 20 mg Tablet 20 mg PO PM Qty: 0 RF: 0 polyethylene glycol 3350 [Miralax] 17 gram/dose Powder 17 g PO DAILY RF: 0 ceftriaxone 2 gram recon soln 2 gm IV Q12 RF: 0 albuterol sulfate 2.5 mg /3 mL (0.083 %) solution for nebulization 2.5 mg NEB Q4H PRN (Reason: Wheezing) RF: 0 acetaminophen [Tylenol] 325 mg Tablet 650 mg PO Q4 PRN (Reason: pain on scale 1-3) RF: 0 potassium chloride 10 mEq Capsule, Extended Release 10 meq PO BID RF: 0 sennosides-docusate sodium [Senokot-S] 8.6-50 mg Tablet 1 tab PO UD PRN (Reason: Constipation) RF: 0 polyethylene glycol 3350 [Miralax] 17 gram/dose Powder 17 g PO UD PRN (Reason: Constipation) RF: 0 Admission Data Admit Date/Time: 03/25/19 05:39 Attending Provider: Katie Leslie Admit Provider: Junior Ramirez [facility] Other Providers: Drea Anaya Service: Telemetry
--- NOTE | 2019-03-26 14:19 | Family Medicine Progress Note ---
Date of Service March 26, 2019 Assessment & Plan (1) Shortness of breath: 74-year-old female with PMH L Lung ca, RA, paroxysmal A fib, smoker, HTN, spinal discitis was admitted on 25 Mar 2019 for very acute shortness of breath. Of note, she was an inpatient from March 10 to March 21 for infective endocarditis amongst other issues. Shortness of breath - Patient woke from sleep early 10May with feeling of SOB. Noted anxiety from this as well. She denies recent fevers or feeling of illness since hospital discharge. - On arrival, was SpO2 81% on room air. Improved to 90% with 4 L nasal cannula. Now improved on either 1-2L NC. Will try to wean off of supplemental oxygen, but this will likely have to be done in rehab. -CTA chest (overnight read) notes no PE. No aortic dissection or aneurysm. Moderate right and small left pleural effusions. New groundglass opacities in right upper and lower lobes not previously present. Repeat EKG after her neb notes some tachycardia with PACs and a couplet. - Unlikely it is HAP given no fever or leukocytosis. WBC 6, negative for influenza A and B. Lactate 2.5 (repeat normal 1.9), procal .17, nasal MRSA neg. Will continue endocarditis antibiotics (see below). Repeat blood cultures pending. In ED: Given methylprednisolone 60 mg x 1, vancomycin, Zosyn, and Levaquin. - Unclear exact etiology of this SOB/ hypoxia, but anxiety likely played a role (pt agrees to this). - Scheduled xopenex nebs Infective endocarditis - Mitral valve and aortic valve infection of Enterococcus faecalis thought to be from her [id number]. Discharged on ampicillin and Rocephin with planned antibiotic end date around April 24. Apparently was unable to get PICC due to vessel size. Velásquez PowerPort placed for long-term antibiotics. - Continue prior ampicillin and ceftriaxone. Pleural effusions -As above, seen on CTA chest. BNP 3500. TTE on 10Mar2019 noted EF 60-65% with mild LVH. - In ED, given Lasix 40 mg IV x1. We will treat her breathing difficulties as above. Anemia - Previous positive Hemoccult. Suspected anemia of chronic inflammation. Seen by hematology, did not suspect MDS. Was transfused on last admission. Planned EGD and colonoscopy as outpatient was delayed due to her endocarditis. - Admit Hb 9.3. No reports of acute bleeding. No signs or sxs of anemia. Will cont to monitor - Today 8.2 --> IV Iron. Will d/c on ferrous sulfate 325 mg to take eod HTN - Continue home diltiazem, losartan, potassium. -Has not been well controlled looking back at records. Increased losartan to 150 mg, will cont on d/c -Consider outpt sleep study Paroxysmal atrial fibrillation - Continue diltiazem and xarelto. Rheumatoid arthritis -Stable Not presently on any DMARDs. Anxiety - Continue home Xanax. Spinal discitis - T11-T12 as well as L3-L4. Seen by orthopedics and previous admission, no surgical intervention recommended at that time. Has some ongoing back pain, so continue home tramadol. Cognitive impairment - Concerns for same / dementia on last admission. MRI of her brain was negative for septic emboli. Dr. Anaya spoke with [id number]. Apparently the patient has been more confused in recent weeks. Will cont to monitor FEN/GI: Heart healthy DVT prophylaxis: Xarelto Dispo: Cont on tele. Likely d/c tomorrow to [facility]. PT/OT today. Working on insurance auth Full Code Supervising Physician Co-Signing Physician Notes Resident Physician Supervision Note: I independently interviewed and examined the patient and verified the swan history and physical, reviewed labs and image studies, discussed the case with the resident Dr. Araya and agree with the findings and care plan. Subjective 74 y/o F found in bed this AM in NAD. No acute overnight events. Tolerating PO intake. No issues voiding. Denies SOB, CP, orthopnea. No other acute concerns or complaints. Ok with plan to go back to [facility]. Review of Systems Review of Systems: All systems reviewed & are unremarkable except as noted in HPI & below Physical Exam Constitutional: WD/WN, vitals as above Eyes: PERRL, conjunctivae normal, anicteric sclerae ENMT: external ear and nose normal, oropharynx normal Neck: R neck incision c/d/i Respiratory: normal respiratory effort, lungs clear to auscultation Cardiovascular: RRR, no murmur, no edema Gastrointestinal (Abdomen): normal bowel sounds, soft, nontender, no hepatosplenomegaly Skin: no rashes, warm and dry Psychiatric: A+Ox3, euthymic affect Results & Data Vital Signs (Past 12 Hours) Vital Signs Temp Pulse Pulse Resp BP Pulse Ox 03/26/19 11:29 36.6 C 93 H 16 162/68 H 91 03/26/19 07:16 36.4 C L 83 16 154/54 H 97 03/26/19 07:07 78 18 98 03/26/19 03:17 36.5 C 88 24 139/62 96 Laboratory Results Laboratory Results - last 24 hr 03/25/19 03/25/19 03/26/19 15:25 15:25 05:07 WBC 10.77 RBC 3.01 L Hgb 8.2 L Hct 25.5 L MCV 84.7 MCH 27.2 MCHC 32.2 RDW Std Deviation 50.2 H RDW Coeff of Jose 16.6 H Plt Count 214 MPV 9.4 Immature Gran % (Auto) 0.5 Neut % (Auto) 86.5 Lymph % (Auto) 8.4 [place] % (Auto) 4.6 Eos % (Auto) 0.0 Baso % (Auto) 0.0 Immature Gran # (Auto) 0.05 H Neut # (Auto) 9.32 H Lymph # (Auto) 0.90 L [place] # (Auto) 0.50 Eos # (Auto) 0.00 Baso # (Auto) 0.00 Sodium Potassium Chloride Carbon Dioxide Anion Gap BUN Creatinine Est Cr Clr Drug Dosing Est GFR ( Amer) Est GFR (Non-Af Amer) BUN/Creatinine Ratio Glucose Lactate 1.9 Calcium Total Bilirubin AST ALT Alkaline Phosphatase Troponin I 0.028 Total Protein Albumin Globulin Albumin/Globulin Ratio 03/26/19 05:07 WBC RBC Hgb Hct MCV MCH MCHC RDW Std Deviation RDW Coeff of Jose Plt Count MPV Immature Gran % (Auto) Neut % (Auto) Lymph % (Auto) [place] % (Auto) Eos % (Auto) Baso % (Auto) Immature Gran # (Auto) Neut # (Auto) Lymph # (Auto) [place] # (Auto) Eos # (Auto) Baso # (Auto) Sodium 140 Potassium 4.3 D Chloride 108 H Carbon Dioxide 24 Anion Gap 7.0 BUN 18 Creatinine 0.87 Est Cr Clr Drug Dosing 38.7 Est GFR ( Amer) 76.1 Est GFR (Non-Af Amer) 65.6 BUN/Creatinine Ratio 21.3 H Glucose 101 H Lactate Calcium 8.1 L Total Bilirubin 0.3 AST 11 L ALT 8 L Alkaline Phosphatase 81 Troponin I Total Protein 5.9 L Albumin 2.0 L Globulin 3.9 Albumin/Globulin Ratio 0.5 L Medications Administered Current Inpatient Medications Acetaminophen (Tylenol) 650 mg PO Q4 PRN PRN Reason: pain on scale 1-3 Stop: 04/24/19 06:38 Last Admin: 03/26/19 07:43 Dose: 650 mg Documented by: Alprazolam (Xanax) 0.5 mg PO DAILY SHARONA Stop: 04/24/19 08:59 Last Admin: 03/26/19 07:42 Dose: 0.5 mg Documented by: Diltiazem HCl (Cardizem Cd) 240 mg PO DAILY SHARONA Stop: 04/24/19 08:59 Last Admin: 03/26/19 07:46 Dose: 240 mg Documented by: Docusate Sodium (Colace) 100 mg PO BID SHARONA Stop: 04/24/19 08:59 Last Admin: 03/26/19 07:40 Dose: Not Given Documented by: Heparin Sodium (Beef Lung) (Heparin Sod 10 Unit/Ml Flush) 5 ml FLUSH PRN PRN PRN Reason: Flush Stop: 04/24/19 23:17 Ampicillin Sodium 2,000 mg/ (Sodium Chloride) 100 mls @ 200 mls/hr IV Q6H SHARONA Stop: 05/06/19 07:59 Last Infusion: 03/26/19 08:14 Dose: Infused Documented by: Ceftriaxone Sodium 2,000 mg/ (Dextrose) 70 mls @ 100 mls/hr IV Q12H SHARONA Stop: 05/06/19 09:59 Last Infusion: 03/26/19 10:01 Dose: Infused Documented by: Lactobacillus Acidophilus (Floranex) 4 tab PO TIDM SHARONA Stop: 04/24/19 07:59 Last Admin: 03/26/19 11:46 Dose: Not Given Documented by: Levalbuterol HCl (Xopenex 0.63 Mg/3 Ml Neb) 0.63 mg NEB Q6R SHARONA Stop: 04/24/19 07:59 Last Admin: 03/26/19 14:17 Dose: 0.63 mg Documented by: Losartan Potassium (Cozaar) 150 mg PO DAILY SHARONA Stop: 04/25/19 08:59 Last Admin: 03/26/19 07:44 Dose: 150 mg Documented by: Polyethylene Glycol (Miralax Powder Packet) 17 gm PO QAM SHARONA Stop: 04/24/19 08:59 Last Admin: 03/26/19 07:40 Dose: Not Given Documented by: Polyethylene Glycol (Miralax Powder Packet) 17 gm PO QAM PRN PRN Reason: CONSTIPATION Stop: 04/24/19 08:59 Potassium Chloride (Klor-Con M10) 10 meq PO BID SHARONA Stop: 04/24/19 08:59 Last Admin: 03/26/19 07:48 Dose: 10 meq Documented by: Rivaroxaban (Xarelto) 20 mg PO PM SHARONA Stop: 04/24/19 20:59 Last Admin: 03/25/19 20:24 Dose: 20 mg Documented by: Senna/Docusate Sodium (Senokot S) 1 tab PO DAILY PRN PRN Reason: Constipation Stop: 04/24/19 06:38 Tramadol HCl (Ultram) 50 mg PO Q4H PRN PRN Reason: pain Stop: 04/24/19 06:38 Resident Activity Tracking Resident Involvement: Resident Care Provided Care Provided: Adult Hospital Medicine
[2019-03-26] MEDS: RIVAROXABAN 20 MG TAB PO SCH (21:08)
[2019-03-27] MEDS: ACETAMINOPHEN 325 MG TAB PO PRN (00:08)
[2019-03-27] MEDS: AMPICILLIN 2,000 MG in SODIUM CHLOR 0.9% AD-VAN 100 ML IV SCH ×4 (02:04→21:03)
[2019-03-27] MEDS: LEVALBUTEROL HCL 0.63 MG/3 ML NEB NEB SCH ×5 (02:06→19:29)
[2019-03-27 05:53] LABS: Basophils # (auto) 0.02 K/uL (0-0.2); Basophils % (auto) 0.2 %; Eosinophils # (auto) 0.07 K/uL (0-0.5); Eosinophils % (auto) 0.7 %; Hemoglobin 8.8 g/dL (12.0-16.0); Immature Granulocytes # (auto) 0.05 K/uL (0.00-0.02); Immature Granulocytes % (auto) 0.5 %; Lymphocytes # (auto) 1.39 K/uL (1.2-3.4); Mean Corpuscular Hgb Conc 31.4 g/dL (32-36); Mean Corpuscular Volume 86.7 fL (80-100); Mean Platelet Volume 8.9 fL (7.4-10.4); Monocytes # (auto) 0.72 K/uL (0.11-0.59); Monocytes % (auto) 6.7 %; Neutrophils # (auto) 8.46 K/uL (1.4-6.5); Neutrophils % (auto) 78.9 %; Platelet Count 273 K/uL (130-400); RDW Coefficient of Variation 17.2 % (11.5-14.5); RDW Standard Deviation 52.5 fL (36.4-46.3); Red Blood Count 3.23 M/uL (4.2-5.4); White Blood Count 10.71 K/uL (4.8-10.8)
[2019-03-27 06:11] LABS: Albumin Level 2.1 gm/dl (3.4-5.0); BUN Creatinine Ratio 22.4 (10-20); Calcium 8.1 mg/dl (8.5-10.1); Creatinine Clr Calc Pharmacy 40.1 ml/min; Est GFR (African American) 79.4; Est GFR (Non-African American) 68.5; Potassium 3.9 mmol/L (3.5-5.1)
[2019-03-27 06:14] LABS: Albumin Globulin Ratio 0.5 (0.9-2); Bilirubin,Total 0.4 mg/dl (0.2-1); Globulin 4.2 gm/dl (2.5-4.0); Total Protein 6.3 gm/dl (6.4-8.2)
[2019-03-27] MEDS: LACTOBACILLUS ACIDOPHILUS (FLORANEX) TAB PO SCH ×3 (07:25→17:16)
[2019-03-27] MEDS: POTASSIUM CHLORIDE 10 MEQ TABCR PO SCH ×2 (07:26→21:04)
[2019-03-27] MEDS: LOSARTAN POTASSIUM 50 MG TAB PO SCH (07:26)
[2019-03-27] MEDS: DOCUSATE SODIUM 100 MG CAP PO SCH ×2 (07:27→21:04)
[2019-03-27] MEDS: POLYETHYLENE (MIRALAX) 17 GM PACK PO SCH (07:28)
[2019-03-27] MEDS: dilTIAZem HCL 240 MG CAPCR PO SCH (07:29)
[2019-03-27] MEDS: ALPRAZolam 0.5 MG TABLET PO SCH (07:39)
[2019-03-27] MEDS: cefTRIAXone SODIUM 2,000 MG in DEXTROSE 5% 50 ML IV SCH ×2 (10:57→22:22)
--- NOTE | 2019-03-27 17:17 | Family Medicine Progress Note ---
Date of Service March 27, 2019 Assessment & Plan (1) Shortness of breath: 74-year-old female with PMH L Lung ca, RA, paroxysmal A fib, smoker, HTN, spinal discitis was admitted on 25 Mar 2019 for very acute shortness of breath. Of note, she was an inpatient from March 10 to March 21 for infective endocarditis amongst other issues. Paroxysmal atrial fibrillation - Had episode of RVR with HR into 180's. Back down into 80s. - Continue diltiazem and xarelto. Shortness of breath - Patient woke from sleep early 10May with feeling of SOB. Noted anxiety from this as well. She denies recent fevers or feeling of illness since hospital discharge. - On arrival, was SpO2 81% on room air. Improved to 90% with 4 L nasal cannula. Now improved on either 1-2L NC. Will try to wean off of supplemental oxygen, but this will likely have to be done in rehab. -CTA chest (overnight read) notes no PE. No aortic dissection or aneurysm. Moderate right and small left pleural effusions. New groundglass opacities in right upper and lower lobes not previously present. Repeat EKG after her neb notes some tachycardia with PACs and a couplet. - Unlikely it is HAP given no fever or leukocytosis. WBC 6, negative for influenza A and B. Lactate 2.5 (repeat normal 1.9), procal .17, nasal MRSA neg. Will continue endocarditis antibiotics (see below). Repeat blood cultures pending. In ED: Given methylprednisolone 60 mg x 1, vancomycin, Zosyn, and Levaquin. - Unclear exact etiology of this SOB/ hypoxia, but anxiety likely played a role (pt agrees to this). - Scheduled xopenex nebs Infective endocarditis - Mitral valve and aortic valve infection of Enterococcus faecalis thought to be from her [id number]. Discharged on ampicillin and Rocephin with planned antibiotic end date around April 24. Apparently was unable to get PICC due to vessel size. Velásquez PowerPort placed for long-term antibiotics. - Continue prior ampicillin and ceftriaxone. Pleural effusions -As above, seen on CTA chest. BNP 3500. TTE on 10Mar2019 noted EF 60-65% with mild LVH. - In ED, given Lasix 40 mg IV x1. We will treat her breathing difficulties as above. Anemia - Previous positive Hemoccult. Suspected anemia of chronic inflammation. Seen by hematology, did not suspect MDS. Was transfused on last admission. Planned EGD and colonoscopy as outpatient was delayed due to her endocarditis. - Admit Hb 9.3. No reports of acute bleeding. No signs or sxs of anemia. Will cont to monitor - IV Iron x1. Will d/c on ferrous sulfate 325 mg to take eod HTN - Continue home diltiazem, losartan, potassium. -Has not been well controlled looking back at records. Increased losartan to 150 mg, will cont on d/c -Consider outpt sleep study Rheumatoid arthritis -Stable Not presently on any DMARDs. Anxiety - Continue home Xanax. Spinal discitis - T11-T12 as well as L3-L4. Seen by orthopedics and previous admission, no surgical intervention recommended at that time. Has some ongoing back pain, so continue home tramadol. Cognitive impairment - Concerns for same / dementia on last admission. MRI of her brain was negative for septic emboli. Dr. Anaya spoke with [id number]. Apparently the patient has been more confused in recent weeks. Will cont to monitor -Appears to have brief moments of confusion at times, but for large part is A&Ox3 FEN/GI: Heart healthy DVT prophylaxis: Xarelto Dispo: Cont on tele. Pt has been accepted back to [facility], likely d/c tomorrow if stable Full Code Supervising Physician Co-Signing Physician Notes Resident Physician Supervision Note: I independently interviewed and examined the patient and verified the swan history and physical, reviewed labs and image studies, discussed the case with the resident Dr. Araya and agree with the findings and care plan. Subjective 74 y/o F found in bed this AM in NAD. No acute overnight events. Tolerating PO intake. No issues voiding. Denies SOB, CP, orthopnea. No other acute concerns or complaints. Ok with plan to go back to [facility]. Review of Systems Review of Systems: All systems reviewed & are unremarkable except as noted in HPI & below Physical Exam Constitutional: WD/WN, vitals as above Eyes: PERRL, conjunctivae normal, anicteric sclerae ENMT: external ear and nose normal, oropharynx normal Respiratory: normal respiratory effort, lungs clear to auscultation Cardiovascular: RRR, no murmur, no edema Gastrointestinal (Abdomen): normal bowel sounds, soft, nontender, no hepatosplenomegaly Skin: no rashes, warm and dry Psychiatric: A+Ox3, euthymic affect Results & Data Vital Signs (Past 12 Hours) Vital Signs Temp Pulse Pulse Pulse Resp BP BP 03/27/19 15:34 36.4 C L 86 22 160/66 H 03/27/19 14:20 90 20 03/27/19 11:34 36.4 C L 99 H 18 164/70 H 03/27/19 08:00 94 H 03/27/19 07:30 36.7 C 90 20 188/49 H 03/27/19 05:25 93 H 22 Pulse Ox 03/27/19 15:34 92 03/27/19 14:20 95 03/27/19 11:34 90 03/27/19 08:00 03/27/19 07:30 90 03/27/19 05:25 91 Laboratory Results Laboratory Results - last 24 hr 03/27/19 03/27/19 05:27 05:27 WBC 10.71 RBC 3.23 L Hgb 8.8 L Hct 28.0 L MCV 86.7 MCH 27.2 MCHC 31.4 L RDW Std Deviation 52.5 H RDW Coeff of Jose 17.2 H Plt Count 273 MPV 8.9 Immature Gran % (Auto) 0.5 Neut % (Auto) 78.9 Lymph % (Auto) 13.0 [place] % (Auto) 6.7 Eos % (Auto) 0.7 Baso % (Auto) 0.2 Immature Gran # (Auto) 0.05 H Neut # (Auto) 8.46 H Lymph # (Auto) 1.39 [place] # (Auto) 0.72 H Eos # (Auto) 0.07 Baso # (Auto) 0.02 Sodium 140 Potassium 3.9 Chloride 109 H Carbon Dioxide 23 Anion Gap 8.0 BUN 19 H Creatinine 0.84 Est Cr Clr Drug Dosing 40.1 Est GFR ( Amer) 79.4 Est GFR (Non-Af Amer) 68.5 BUN/Creatinine Ratio 22.4 H Glucose 98 Calcium 8.1 L Total Bilirubin 0.4 AST 14 L ALT 10 L Alkaline Phosphatase 84 Total Protein 6.3 L Albumin 2.1 L Globulin 4.2 H Albumin/Globulin Ratio 0.5 L Medications Administered Current Inpatient Medications Acetaminophen (Tylenol) 650 mg PO Q4 PRN PRN Reason: pain on scale 1-3 Stop: 04/24/19 06:38 Last Admin: 03/27/19 00:08 Dose: 650 mg Documented by: Alprazolam (Xanax) 0.5 mg PO DAILY SHARONA Stop: 04/24/19 08:59 Last Admin: 03/27/19 07:39 Dose: 0.5 mg Documented by: Diltiazem HCl (Cardizem Cd) 240 mg PO DAILY SHARONA Stop: 04/24/19 08:59 Last Admin: 03/27/19 07:29 Dose: 240 mg Documented by: Docusate Sodium (Colace) 100 mg PO BID SHARONA Stop: 04/24/19 08:59 Last Admin: 03/27/19 07:27 Dose: 100 mg Documented by: Heparin Sodium (Beef Lung) (Heparin Sod 10 Unit/Ml Flush) 5 ml FLUSH PRN PRN PRN Reason: Flush Stop: 04/24/19 23:17 Ampicillin Sodium 2,000 mg/ (Sodium Chloride) 100 mls @ 200 mls/hr IV Q6H SHARONA Stop: 05/06/19 07:59 Last Admin: 03/27/19 14:16 Dose: 200 mls/hr Documented by: Ceftriaxone Sodium 2,000 mg/ (Dextrose) 70 mls @ 100 mls/hr IV Q12H [facility] Stop: 05/06/19 09:59 Last Admin: 03/27/19 10:57 Dose: 100 mls/hr Documented by: Lactobacillus Acidophilus (Floranex) 4 tab PO TIDM [facility] Stop: 04/24/19 07:59 Last Admin: 03/27/19 17:16 Dose: 4 tab Documented by: Levalbuterol HCl (Xopenex 0.63 Mg/3 Ml Neb) 0.63 mg NEB Q6R SHRAONA Stop: 04/24/19 07:59 Last Admin: 03/27/19 14:18 Dose: 0.63 mg Documented by: Losartan Potassium (Cozaar) 150 mg PO DAILY [facility] Stop: 04/25/19 08:59 Last Admin: 03/27/19 07:26 Dose: 150 mg Documented by: Polyethylene Glycol (Miralax Powder Packet) 17 gm PO QAM SHARONA Stop: 04/24/19 08:59 Last Admin: 03/27/19 07:28 Dose: 17 gm Documented by: Polyethylene Glycol (Miralax Powder Packet) 17 gm PO QAM PRN PRN Reason: CONSTIPATION Stop: 04/24/19 08:59 Potassium Chloride (Klor-Con M10) 10 meq PO BID SHARONA Stop: 04/24/19 08:59 Last Admin: 03/27/19 07:26 Dose: 10 meq Documented by: Rivaroxaban (Xarelto) 20 mg PO PM SHARONA Stop: 04/24/19 20:59 Last Admin: 03/26/19 21:08 Dose: 20 mg Documented by: Senna/Docusate Sodium (Senokot S) 1 tab PO DAILY PRN PRN Reason: Constipation Stop: 04/24/19 06:38 Tramadol HCl (Ultram) 50 mg PO Q4H PRN PRN Reason: pain Stop: 04/24/19 06:38 Resident Activity Tracking Resident Involvement: Resident Care Provided Care Provided: Adult Hospital Medicine
[2019-03-27] MEDS: RIVAROXABAN 20 MG TAB PO SCH (21:04)
[2019-03-27] MEDS: LEVALBUTEROL HCL 0.63 MG/3 ML NEB NEB PRN (22:01)
[2019-03-28] MEDS: AMPICILLIN 2,000 MG in SODIUM CHLOR 0.9% AD-VAN 100 ML IV SCH ×4 (02:04→19:57)
[2019-03-28] MEDS: LEVALBUTEROL HCL 0.63 MG/3 ML NEB NEB SCH ×4 (02:07→19:12)
[2019-03-28 06:11] LABS: Basophils # (auto) 0.01 K/uL (0-0.2); Basophils % (auto) 0.2 %; Eosinophils # (auto) 0.02 K/uL (0-0.5); Eosinophils % (auto) 0.3 %; Hematocrit (blood only) 22.6 % (37-47); Hemoglobin 7.3 g/dL (12.0-16.0); Immature Granulocytes # (auto) 0.02 K/uL (0.00-0.02); Immature Granulocytes % (auto) 0.3 %; Lymphocytes # (auto) 0.77 K/uL (1.2-3.4); Lymphocytes % (auto) 12.7 %; Mean Corpuscular Hgb Conc 32.3 g/dL (32-36); Mean Corpuscular Volume 86.6 fL (80-100); Mean Platelet Volume 8.8 fL (7.4-10.4); Monocytes # (auto) 0.42 K/uL (0.11-0.59); Monocytes % (auto) 6.9 %; Neutrophils # (auto) 4.84 K/uL (1.4-6.5); Neutrophils % (auto) 79.6 %; Platelet Count 190 K/uL (130-400); RDW Coefficient of Variation 17.5 % (11.5-14.5); RDW Standard Deviation 53.2 fL (36.4-46.3); Red Blood Count 2.61 M/uL (4.2-5.4); White Blood Count 6.08 K/uL (4.8-10.8)
[2019-03-28 06:37] LABS: RBC Morphology Unremarkable
[2019-03-28 06:46] LABS: Albumin Level 1.8 gm/dl (3.4-5.0); BUN Creatinine Ratio 21.6 (10-20); Creatinine Clr Calc Pharmacy 46.1 ml/min; Est GFR (Non-African American) 81.1; Potassium 3.8 mmol/L (3.5-5.1)
[2019-03-28 06:49] LABS: Albumin Globulin Ratio 0.5 (0.9-2); Bilirubin,Total 0.3 mg/dl (0.2-1); Globulin 3.7 gm/dl (2.5-4.0); Total Protein 5.5 gm/dl (6.4-8.2)
--- NOTE | 2019-03-28 08:33 | XRay Report ---
XR chest 2V routine CLINICAL HISTORY: Hypoxemic Respiratory Failure COMPARISON STUDY: Chest CT and chest radiograph March 25, 2019. FINDINGS: Right internal jugular [id number] is in place. There is no pneumothorax. There are posto perative findings within the left lung. Small bilateral pleural effusions increased. There is diffuse interstitial thickening. Right lung and left lower lung airspace opacities have increased. IMPRESSION: 1. Increase in bilateral airspace opacities which favor pneumonia. 2. Increase in interstitial thickening suggestive of superimposed pulmonary edema. 3. Increase in small bilateral pleural effusions. Electronically signed by: Jason Syed M.D. 03/28/2019 8:32 AM
[2019-03-28] MEDS: ALPRAZolam 0.5 MG TABLET PO SCH (09:14)
[2019-03-28] MEDS: cefTRIAXone SODIUM 2,000 MG in DEXTROSE 5% 50 ML IV SCH ×2 (09:14→23:20)
[2019-03-28] MEDS: LACTOBACILLUS ACIDOPHILUS (FLORANEX) TAB PO SCH ×3 (09:15→16:49)
[2019-03-28] MEDS: dilTIAZem HCL 240 MG CAPCR PO SCH (09:15)
[2019-03-28] MEDS: POTASSIUM CHLORIDE 10 MEQ TABCR PO SCH ×2 (09:15→19:58)
[2019-03-28] MEDS: POLYETHYLENE (MIRALAX) 17 GM PACK PO SCH (09:16)
[2019-03-28] MEDS: DOCUSATE SODIUM 100 MG CAP PO SCH ×2 (09:16→19:58)
[2019-03-28] MEDS: LOSARTAN POTASSIUM 50 MG TAB PO SCH (09:16)
[2019-03-28] MEDS ORDERED: FUROSEMIDE 40 MG in SYRINGE 0 ML IV ONE ×2 (09:17→18:00)
[2019-03-28] MEDS: ACETAMINOPHEN 325 MG TAB PO PRN ×2 (09:19→18:21)
--- NOTE | 2019-03-28 16:13 | Family Medicine Progress Note ---
Date of Service March 28, 2019 Assessment & Plan (1) Shortness of breath: 74-year-old female with PMH L Lung ca, RA, paroxysmal A fib, smoker, HTN, spinal discitis was admitted on 25 Mar 2019 for very acute shortness of breath. Of note, she was an inpatient from March 10 to March 21 for infective endocarditis amongst other issues. Shortness of breath * Patient woke from sleep early 10May with feeling of SOB. Noted anxiety from this as well. She denies recent fevers or feeling of illness since hospital discharge. * On arrival, was SpO2 81% on room air. Improved to 90% on either 1-2L NC. Today worsened to 4L oxymask *CTA chest notes no PE. No aortic dissection or aneurysm. Moderate right and small left pleural effusions. New groundglass opacities in right upper and lower lobes not previously present. * likely diastolic dysfunction causing congestion and pulmonary edema * Ordered 80 mg total of lasix today, hope to see some improvement in the morning. IE * Mitral valve and aortic valve infection of Enterococcus faecalis * Continue ampicillin and Rocephin through April 24 Anemia - Previous positive Hemoccult. Suspected anemia of chronic inflammation. Seen by hematology, did not suspect MDS. Was transfused on last admission. Planned EGD and colonoscopy as outpatient was delayed due to her endocarditis. - Admit Hb 9.3.now down to 7.4 - Will continue to monitor and supplement iron HTN - Continue home diltiazem, losartan, potassium. -Has not been well controlled looking back at records. Increased losartan to 150 mg, will cont on d/c -Consider outpt sleep study Paroxysmal atrial fibrillation - Continue diltiazem and xarelto. Rheumatoid arthritis -Stable Not presently on any DMARDs. Anxiety - Continue home Xanax. Spinal discitis - T11-T12 as well as L3-L4. Seen by orthopedics and previous admission, no surgical intervention recommended at that time. Has some ongoing back pain, so continue home tramadol. Cognitive impairment - Concerns for same / dementia on last admission. MRI of her brain was negative for septic emboli. Dr. Anaya spoke with [id number]. Apparently the patient has been more confused in recent weeks. Will cont to monitor -Appears to have brief moments of confusion at times, but for large part is A&Ox3 FEN/GI: Heart healthy DVT prophylaxis: Xarelto Dispo: Cont on tele. Pt has been accepted back to [facility], pending control over hypoxemic respiratory failure Full Code Supervising Physician Co-Signing Physician Notes I personally examined the patient and verified all swan points of history and exam, discussed case, and agree with decision making with Dr Morris. feeling better overall disappointed that she is not going to [facility] yet. Extensive discussion on pulmonary edema/diastolic dysfunction and treatment. Vitals noted, in general she is pleasant no distress, but still on 4 to 5 L oxymask. Breathing unlabored no accessory muscle use. Skin shows no rashes no pallor or icterus. Dyspnealikely multifactorial, seems to be improving. The main portion is still remains appears to be a bit of pulmonary edema, additional diuresis and hopefully there will be stable to get to [facility]. Possible pneumoniapresent on admission seems to be improving with current antibiotics. Deconditioning/weaknessplan will be to get her to [facility] soon as is possible, today we felt it was not safe or appropriate given that while not dramatic, her oxygen requirements were a bit worse today than yesterday. DVT prophylaxisanticoagulation Subjective Veronica Mendoza is resting comfortably in her chair on oxymask. She tells me she has been off and on short of breath but feels okay right now. She is very anxious and teary. No particular complaints besides the shortness of breath and desire to return to rehab as soon as possible. Review of Systems Review of Systems: All systems reviewed & are unremarkable except as noted in HPI & below Physical Exam Constitutional: + thin; no acute distress Respiratory: no respiratory distress and no labored breathing Auscultation: + crackles (Bi basilar) Cardiovascular: Rate/Rhythm: regular rate and regular rhythm Heart Sounds: no click, no gallop, no murmur and no cardiac rub Extremities: no calf tenderness Gastrointestinal (Abdomen): normal bowel sounds, soft, nontender, no hepatosplenomegaly Results & Data Vital Signs (Past 12 Hours) Vital Signs Temp Pulse Pulse Pulse Resp BP BP 03/28/19 15:29 03/28/19 15:13 36.5 C 90 17 151/58 H 03/28/19 14:08 89 18 03/28/19 11:04 36.4 C L 91 H 19 154/63 H 03/28/19 08:00 105 H 03/28/19 06:55 36.8 C 101 H 24 183/69 H 03/28/19 06:18 107 H 20 Pulse Ox 03/28/19 15:29 82 L 03/28/19 15:13 92 03/28/19 14:08 90 03/28/19 11:04 93 03/28/19 08:00 03/28/19 06:55 93 03/28/19 06:18 91 Resident Activity Tracking Resident Involvement: Resident Care Provided Care Provided: Adult Hospital Medicine
[2019-03-28] MEDS: RIVAROXABAN 20 MG TAB PO SCH (19:58)
[2019-03-29] MEDS: LEVALBUTEROL HCL 0.63 MG/3 ML NEB NEB SCH ×4 (01:18→19:16)
[2019-03-29] MEDS: AMPICILLIN 2,000 MG in SODIUM CHLOR 0.9% AD-VAN 100 ML IV SCH ×3 (02:38→17:47)
[2019-03-29 06:42] LABS: Basophils # (auto) 0.01 K/uL (0-0.2); Basophils % (auto) 0.2 %; Eosinophils # (auto) 0.17 K/uL (0-0.5); Hematocrit (blood only) 21.6 % (37-47); Hemoglobin 6.9 g/dL (12.0-16.0); Immature Granulocytes # (auto) 0.01 K/uL (0.00-0.02); Immature Granulocytes % (auto) 0.2 %; Lymphocytes # (auto) 0.85 K/uL (1.2-3.4); Lymphocytes % (auto) 14.8 %; Mean Corpuscular Hgb Conc 31.9 g/dL (32-36); Mean Corpuscular Volume 87.4 fL (80-100); Mean Platelet Volume 9.1 fL (7.4-10.4); Monocytes # (auto) 0.41 K/uL (0.11-0.59); Monocytes % (auto) 7.2 %; Neutrophils # (auto) 4.28 K/uL (1.4-6.5); Neutrophils % (auto) 74.6 %; Platelet Count 196 K/uL (130-400); RDW Coefficient of Variation 17.9 % (11.5-14.5); RDW Standard Deviation 54.5 fL (36.4-46.3); Red Blood Count 2.47 M/uL (4.2-5.4); White Blood Count 5.73 K/uL (4.8-10.8)
[2019-03-29 07:02] LABS: Calcium 7.8 mg/dl (8.5-10.1); Creatinine Clr Calc Pharmacy 41.6 ml/min; Est GFR (African American) 82.9; Est GFR (Non-African American) 71.5; Potassium 3.3 mmol/L (3.5-5.1)
[2019-03-29 07:22] LABS: Hypochromasia Present
[2019-03-29] MEDS ORDERED: SODIUM CHLORIDE 0.9% 250 ML IV PRN (08:50)
[2019-03-29] MEDS: LACTOBACILLUS ACIDOPHILUS (FLORANEX) TAB PO SCH ×3 (08:55→17:47)
[2019-03-29] MEDS: DOCUSATE SODIUM 100 MG CAP PO SCH ×2 (08:55→21:00)
[2019-03-29] MEDS: dilTIAZem HCL 240 MG CAPCR PO SCH (08:56)
[2019-03-29] MEDS: LOSARTAN POTASSIUM 50 MG TAB PO SCH (08:56)
[2019-03-29] MEDS: POTASSIUM CHLORIDE 10 MEQ TABCR PO SCH ×2 (08:56→21:41)
[2019-03-29] MEDS: ACETAMINOPHEN 325 MG TAB PO PRN (08:57)
[2019-03-29] MEDS: POLYETHYLENE (MIRALAX) 17 GM PACK PO SCH (08:57)
[2019-03-29] MEDS: ALPRAZolam 0.5 MG TABLET PO SCH (09:14)
[2019-03-29] MEDS: cefTRIAXone SODIUM 2,000 MG in DEXTROSE 5% 50 ML IV SCH (09:41)
[2019-03-29] MEDS ORDERED: Nursing to Pharmacy Communication ONE (14:42)
[2019-03-29] MEDS: LEVALBUTEROL HCL 0.63 MG/3 ML NEB NEB PRN (16:10)
[2019-03-29] MEDS ORDERED: FUROSEMIDE 40 MG/4 ML VIAL IV STA (16:10)
[2019-03-29] MEDS ORDERED: FUROSEMIDE 40 MG/4 ML VIAL IV ONE (16:12)
[2019-03-29] MEDS ORDERED: FUROSEMIDE 40 MG in SYRINGE 0 ML IV SCH (16:15)
--- NOTE | 2019-03-29 16:20 | Family Medicine Progress Note ---
Date of Service March 29, 2019 Assessment & Plan (1) Shortness of breath: 74-year-old female with PMH L Lung ca, RA, paroxysmal A fib, smoker, HTN, spinal discitis was admitted on 25 Mar 2019 for very acute shortness of breath. Of note, she was an inpatient from March 10 to March 21 for infective endocarditis amongst other issues. Shortness of breath * Patient's breathing much improved this morning, but worsened to sudden respiratory distress near completion of second unit of PRBC transfusion. * Chest imaging showing pulmonary edema gave 40 mg of lasix and patient placed on BiPAP gave half a milligram of ativan for anxiety. * Patient still on BiPAP not having as much distress currently. Will watch closely. 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 Rheumatoid arthritis -Stable with notable ulnar deviation of phalanges Not presently on any DMARDs. Anxiety * Continue home Xanax. * Gave extra .5 mg this afternoon after BiPAP mask placed. Spinal discitis * T11-T12 as well as L3-L4. Seen by orthopedics and previous admission, no surgical intervention recommended at that time. Has some ongoing back pain, so continue home tramadol. Cognitive impairment * Concerns for same / dementia on last admission. MRI of her brain was negative for septic emboli. Dr. Anaya spoke with [id number]. Apparently the patient has been more confused in recent weeks. Will cont to monitor * Appears to have brief moments of confusion at times, but for large part is A&Ox3 Hemoptysis * Likely secondary to epistaxis from oxygen therapy. * No suspicious lesions on Chest imaging despite history of lung cancer. * Will continue to monitor FEN/GI: Heart healthy DVT prophylaxis: Xarelto Dispo: Cont on tele. Pt has been accepted back to [facility], pending control over hypoxemic respiratory failure Full Code Supervising Physician Co-Signing Physician Notes I personally examined the patient and verified all swan points of history and exam, discussed case, and agree with decision making with Dr Morris. Initially was feeling better and was ready to go to [facility], then later in the day she abruptly got more short of breath. See Dr. Morris's notes for further details. Vitals noted, initially breathing unlabored then later requiring BiPAP to breathe without difficulty. No pallor or icterus. See Dr. Morris's exam otherwise as above. Acute pulmonary edema related to acute heart failure with preserved ejection fractionBiPAP, Lasix, supportive care. Follow closely for any evidence of recurrent infection, CBC and short order both to follow-up on effective transfusion as well as to check white count. Follow vitals. Case discussed with night coverage. Shanell Mendoza required a blood transfusion this morning and was very reticent to get one threatening to leave against medical advice. She finally agreed, but unfortunately towards the end of her transfusion she had respiratory distress. She has been more confused of late, and is very paranoid about the hospital suggesting that we are "inventing things that are wrong with her each day to keep her here". She repeatedly expresses her desire to return to [facility] as soon as possible. She reports she is having some hemoptysis since she started her oxygen therapy. Review of Systems Constitutional: no fever, no chills, no sweats and no body aches Respiratory: + cough, + chest congestion, + dyspnea and + wheezing Cardiovascular: + dyspnea and + orthopnea; no chest pain and no palpitations Gastrointestinal: no abdominal pain, no nausea and no vomiting Psychiatric: + anxiety Physical Exam Constitutional: well nourished, + acute distress, + ill appearing and + cachectic Respiratory: + respiratory distress, + labored breathing, + retractions and + uses accessory muscles Auscultation: + crackles, + rales and + wheezes Cardiovascular: Rate/Rhythm: regular rhythm and + tachycardic Extremities: no calf tenderness Gastrointestinal (Abdomen): normal bowel sounds, soft, nontender, no hepatosplenomegaly Results & Data Vital Signs (Past 12 Hours) Vital Signs Temp Pulse Pulse Pulse Resp BP BP 03/29/19 16:10 99 H 30 H 03/29/19 15:30 36.6 C 84 20 160/66 H 03/29/19 15:00 36.5 C 93 H 18 159/66 H 03/29/19 14:30 36.5 C 83 18 146/61 H 03/29/19 14:20 80 03/29/19 14:15 36.4 C L 81 18 149/75 H 03/29/19 14:08 81 20 03/29/19 14:00 36.5 C 86 16 133/67 03/29/19 13:07 36.5 C 83 16 126/71 03/29/19 12:45 36.5 C 91 H 16 122/49 L 03/29/19 12:44 36.5 C 91 H 16 122/49 L 03/29/19 11:45 36.4 C L 90 18 151/63 H 03/29/19 11:15 36.5 C 84 16 135/59 L 03/29/19 11:00 36.5 C 83 16 141/57 H 03/29/19 10:44 36.4 C L 84 18 155/72 H 03/29/19 07:16 94 H 18 03/29/19 07:09 36.3 C L 88 18 03/29/19 06:22 101 H BP Pulse Ox 03/29/19 16:10 85 L 03/29/19 15:30 95 03/29/19 15:00 90 03/29/19 14:30 88 L 03/29/19 14:20 03/29/19 14:15 89 L 03/29/19 14:08 88 L 03/29/19 14:00 92 03/29/19 13:07 96 03/29/19 12:45 95 03/29/19 12:44 95 03/29/19 11:45 92 03/29/19 11:15 95 03/29/19 11:00 96 03/29/19 10:44 96 03/29/19 07:16 94 03/29/19 07:09 160/50 H 91 03/29/19 06:22 Resident Activity Tracking Resident Involvement: Resident Care Provided Care Provided: Adult Hospital Medicine
[2019-03-29] MEDS ORDERED: LORazepam 2 MG/4 ML VIAL ONE (16:31)
--- NOTE | 2019-03-29 16:40 | XRay Report ---
XR chest 1V portable CLINICAL HISTORY: 74 years-old Female presenting with Respiratory Distress. TECHNIQUE: Portable upright AP view of the chest was obtained. COMPARISON: 03/28/2019. FINDINGS: Tunneled right internal jugular central venous catheter terminates at the superior cavoatrial junctio n. Atherosclerosis of the aortic arch. Mediastinal surgical clips project over the left hilum. Cardia c silhouette mildly enlarged. Diffuse reticular opacities in the lungs. Superimposed hazy density in the right upper lung and mid to basilar left lung. Less prominent subtle opacity at the right lung ba se may be slightly decreased from prior. Architectural distortion and/or pleural thickening noted at the left lung base. A suture margin projects over the left apex. No large effusion or pneumothorax. O steopenia may be present. Mild degenerative changes of the spine. External leads project over the upp er abdomen. IMPRESSION: 1. Persistent multifocal infiltrates superimposed on chronic lung disease. This is favored to repres ent multifocal pneumonia. 2. Postsurgical changes of the left lung. Electronically signed by: Yuri Delong M.D. 03/29/2019 4:38 PM
[2019-03-29] MEDS ORDERED: LORazepam 0.5 MG/1 ML VIAL IV SCH (16:45)
[2019-03-29 19:47] LABS: Basophils # (auto) 0.06 K/uL (0-0.2); Basophils % (auto) 0.4 %; Eosinophils # (auto) 0.13 K/uL (0-0.5); Eosinophils % (auto) 0.8 %; Hematocrit (blood only) 33.8 % (37-47); Hemoglobin 11.8 g/dL (12.0-16.0); Immature Granulocytes # (auto) 0.23 K/uL (0.00-0.02); Immature Granulocytes % (auto) 1.5 %; Lymphocytes # (auto) 1.07 K/uL (1.2-3.4); Lymphocytes % (auto) 6.8 %; Mean Corpuscular Hgb Conc 34.9 g/dL (32-36); Mean Corpuscular Volume 81.8 fL (80-100); Mean Platelet Volume 9.4 fL (7.4-10.4); Neutrophils % (auto) 83.5 %; Platelet Count 247 K/uL (130-400); RDW Coefficient of Variation 16.7 % (11.5-14.5); RDW Standard Deviation 45.9 fL (36.4-46.3); Red Blood Count 4.13 M/uL (4.2-5.4); White Blood Count 15.69 K/uL (4.8-10.8)
[2019-03-29] MEDS ORDERED: VANCOMYCIN CONSULT ACTIVE PRN (19:59)
[2019-03-29] MEDS ORDERED: CEFEPIME 2,000 MG in SYRINGE 7.5 ML IV SCH (20:00)
--- NOTE | 2019-03-29 20:13 | Progress Note ---
Date of Service March 29, 2019 Discussed patient on turnover. Some reported concern about pulmonary edema after blood transfusion today. CXR read as possible multifocal pneumonia. Spoke with patient at bedside. She seems frustrated with the BiPAP on but is confused as to its current necessity in maintaining her SpO2. Currently afebrile, borderline tachycardic, on BiPAP 12/4/50% with SpO2 99%. Lungs with faint crackles in all lung abbott. No present respiratory distress, speaking comfortably through the mask. This evening's WBC was 15. Discussed case with Dr. Jiménez. Plan: - Will cover for HAP with cefepime and vancomycin. - Continue ampicillin for endocarditis coverage. Hold ceftriaxone. - Recheck nasal MRSA (so perhaps empiric vancomycin can stop). - Check CBC and procalcitonin in AM. - Keep on BiPAP for now given recent desats to 80's on brief trials off. Depending on how things go, could consider high flow NC oxygen if patient tolerates it better than BiPAP. Junior Ramirez, PGY2 Overnight call Results & Data Vital Signs (Past 12 Hours) Vital Signs Temp Pulse Pulse Pulse Resp BP BP 03/29/19 20:00 87 28 H 03/29/19 19:59 87 28 H 03/29/19 19:46 36.5 C 81 19 174/74 H 03/29/19 17:05 36.4 C L 100 H 20 165/74 H 03/29/19 16:53 36.5 C 119 H 30 H 176/73 H 03/29/19 16:22 113 H 32 H 03/29/19 16:10 99 H 30 H 03/29/19 15:30 36.6 C 84 20 160/66 H 03/29/19 15:00 36.5 C 93 H 18 159/66 H 03/29/19 14:30 36.5 C 83 18 146/61 H 03/29/19 14:20 80 03/29/19 14:15 36.4 C L 81 18 149/75 H 03/29/19 14:08 81 20 03/29/19 14:00 36.5 C 86 16 133/67 03/29/19 13:07 36.5 C 83 16 126/71 03/29/19 12:45 36.5 C 91 H 16 122/49 L 03/29/19 12:44 36.5 C 91 H 16 122/49 L 03/29/19 11:45 36.4 C L 90 18 151/63 H 03/29/19 11:15 36.5 C 84 16 135/59 L 03/29/19 11:00 36.5 C 83 16 141/57 H 03/29/19 10:44 36.4 C L 84 18 155/72 H Pulse Ox 03/29/19 20:00 98 03/29/19 19:59 98 03/29/19 19:46 99 03/29/19 17:05 95 03/29/19 16:53 75 L 03/29/19 16:22 94 03/29/19 16:10 85 L 03/29/19 15:30 95 03/29/19 15:00 90 03/29/19 14:30 88 L 03/29/19 14:20 03/29/19 14:15 89 L 03/29/19 14:08 88 L 03/29/19 14:00 92 03/29/19 13:07 96 03/29/19 12:45 95 03/29/19 12:44 95 03/29/19 11:45 92 03/29/19 11:15 95 03/29/19 11:00 96 03/29/19 10:44 96
[2019-03-29] MEDS ORDERED: VANCOMYCIN HCL 1,250 MG in SODIUM CHLORIDE 0.9% 250 ML IV ONE (20:45)
--- NOTE | 2019-03-29 21:26 | Pharmacy Report ---
Pharmacy Abx Dose Short Note - Date of Service March 29, 2019 - Assessment & Plan Assessment 74 year old F receiving ampicillin/Rocephin for treatment of endocarditis - now starting vancomycin for suspected HAP. Plan Vancomycin * patient pharmacokinetics = Vd = 0.7 L/kg; Jayson = 0.039 hr-1; half life = 17.7 hours * loading dose = 1250 mg (25 mg/kg) * maintenance dose = 750 mg IV q14 hours (15 mg/kg) * no trough ordered as expect medication to be discontinued quickly. Pharmacy will continue to follow and will adjust dose/frequency as necessary. Thank you.
[2019-03-29] MEDS: RIVAROXABAN 15 MG TAB PO SCH (21:41)
[2019-03-30] MEDS: cefTRIAXone SODIUM 2,000 MG in DEXTROSE 5% 50 ML IV SCH ×4 (00:01→21:46)
[2019-03-30] MEDS: AMPICILLIN 2,000 MG in SODIUM CHLOR 0.9% AD-VAN 100 ML IV SCH ×5 (00:07→22:21)
[2019-03-30 00:22] LABS: Blood Urine 2+ (Negative)
[2019-03-30] MEDS: LEVALBUTEROL HCL 0.63 MG/3 ML NEB NEB SCH ×4 (01:18→19:53)
[2019-03-30 06:41] LABS: Basophils # (auto) 0.02 K/uL (0-0.2); Basophils % (auto) 0.2 %; Eosinophils # (auto) 0.13 K/uL (0-0.5); Eosinophils % (auto) 1.3 %; Hematocrit (blood only) 30.6 % (37-47); Hemoglobin 10.4 g/dL (12.0-16.0); Immature Granulocytes # (auto) 0.03 K/uL (0.00-0.02); Immature Granulocytes % (auto) 0.3 %; Lymphocytes % (auto) 9.2 %; Mean Corpuscular Volume 83.2 fL (80-100); Mean Platelet Volume 9.3 fL (7.4-10.4); Monocytes # (auto) 0.55 K/uL (0.11-0.59); Monocytes % (auto) 5.6 %; Neutrophils # (auto) 8.14 K/uL (1.4-6.5); Neutrophils % (auto) 83.4 %; Platelet Count 211 K/uL (130-400); RDW Coefficient of Variation 17.5 % (11.5-14.5); RDW Standard Deviation 48.9 fL (36.4-46.3); Red Blood Count 3.68 M/uL (4.2-5.4); White Blood Count 9.77 K/uL (4.8-10.8)
[2019-03-30 07:12] LABS: Calcium 7.6 mg/dl (8.5-10.1); Creatinine Clr Calc Pharmacy 42.1 ml/min; Est GFR (African American) 84.2; Est GFR (Non-African American) 72.6; Potassium 3.3 mmol/L (3.5-5.1)
--- NOTE | 2019-03-30 07:14 | Family Medicine Progress Note ---
Date of Service March 30, 2019 Assessment & Plan (1) Shortness of breath: 74-year-old female with PMH L Lung ca, RA, paroxysmal A fib, smoker, HTN, spinal discitis was admitted on 25 Mar 2019 for very acute shortness of breath. Of note, she was an inpatient from March 10 to March 21 for infective endocarditis amongst other issues. Shortness of breath/Possible HAP * Patient's breathing much improved this morning on high flow nasal cannula and struggling to keep it in place * Will reorder CXR this morning * Consulting ID awaiting recommendations for treating possible HAP in setting of IE. Currently on Ampicillin Ceftriaxone and Vancomycin, not covering pseudomo nals * Patient not reporting any symptoms currently despite hypoxemic respiratory failure and need for high flow NC. * No fevers chills or other signs of pneumonia besides exam. * Component of fluid overload still likely present will continue to diurese as needed. * Nasal swab for MRSA pending. Infective Endocarditis * Mitral valve and aortic valve infection of Enterococcus faecalis * Continue ampicillin and Rocephin through April 24 * Added Vancomycin overnight for staph coverage of pneumonia awaiting ID consult for further antibiotic recommendations Anemia * Patient with chronic anemia, thought to be secondary to either chronic inflammation or small GI bleed (on xarelto) * Plan is to transfuse as necessary * Admit Hb 9.3.now down to 7.4 * Will continue to monitor and supplement iron Hypertension * Losartan increased to 150 mg * Consider outpt sleep study Paroxysmal atrial fibrillation - Continue diltiazem and xarelto. Rheumatoid arthritis -Stable with notable ulnar deviation of phalanges Not presently on any DMARDs. Anxiety * Continue home Xanax. Spinal discitis * T11-T12 as well as L3-L4. Seen by orthopedics and previous admission, no surgical intervention recommended at that time. Has some ongoing back pain, so continue home tramadol. Cognitive impairment * Concerns for same / dementia on last admission. MRI of her brain was negative for septic emboli. Dr. Anaya spoke with [id number]. Apparently the patient has been more confused in recent weeks. Will cont to monitor * Appears to have brief moments of confusion at times, but for large part is A&Ox3 Hemoptysis * Likely secondary to epistaxis from oxygen therapy. * No suspicious lesions on Chest imaging despite history of lung cancer. * Will continue to monitor FEN/GI: Heart healthy DVT prophylaxis: Xarelto Dispo: Cont on tele. Pt has been accepted back to [facility], pending control over hypoxemic respiratory failure Full Code Supervising Physician Co-Signing Physician Notes I personally examined the patient and verified all swan points of history and exam, discussed case, and agree with decision making with Dr Morris. Breathing better than before. Breathing easier than earlier today. Wonders when she will be on to get out of the hospital. Wants very concrete answers, I try to answer her questions to the best my ability, but because I am unable to provide 100% concrete predictions she continues to ask "so what am I supposed to take from this" Vitals noted, in general she is awake and alert pleasant no distress. She is on 35% FiO2 of high flow nasal cannula. Lungs are surprisingly clear with scattered rales base right and may be a little bit mid left but certainly far more clear than expected without any other rhonchi or wheezes no accessory shows no rashes no pallor or icterus. Hypoxiaappearing to be mixed picture between pneumonia and pulmonary edema. Is uncertain how much of the infection is acute, her white count briefly went up, her procalcitonin is higher than before but certainly not significantly elevated. She does seem to be improving. We will continue current antibiotics for now so as to not escalate her risk of C. difficile, but continue to follow closely and carefully. Pneumoniasee above Acute pulmonary edema related to acute heart failure with preserved ejection fractioncontinue diuresis. Subjective Ms. Mendoza tells me she is feeling alright this morning, despite oxygenating at 82% with her high flow nasal cannula out of her nose when I walked in this morning. She is shocked and upset that we feel there is something wrong with her. She feels her breathing is better, she denies any fevers, chills, shortness of breath, palpitations, diaphoresis, chest pain, or any other symptoms. Sat with her and tried to explain what was going on repeatedly. She is more calm and less anxious than she was yesterday. Review of Systems Constitutional: + weakness; no fever, no chills and no sweats Respiratory: + cough and + hemoptysis (light, since starting oxygen); no dyspnea and no pain on inspiration Cardiovascular: no chest pain, no dyspnea, no palpitations, no syncope and no edema Gastrointestinal: no abdominal pain, no nausea and no vomiting Physical Exam Constitutional: + ill appearing, + cachectic, cooperative and comfortable Respiratory: normal respiratory effort and + uses accessory muscles Auscultation: + crackles, + rales and + wheezes Decreased breath sounds lower lung abbott Cardiovascular: Rate/Rhythm: regular rate, regular rhythm and + tachycardic Heart Sounds: no click, no gallop, no murmur and no cardiac rub Extremities: no calf tenderness Gastrointestinal (Abdomen): normal bowel sounds, soft, nontender, no hepatosplenomegaly Results & Data Vital Signs (Past 12 Hours) Vital Signs Temp Pulse Pulse Pulse Resp BP Pulse Ox 03/30/19 04:00 36.6 C 78 19 184/73 H 96 03/30/19 01:18 80 80 19 100 03/29/19 23:59 36.6 C 74 19 173/71 H 99 03/29/19 23:30 86 26 H 100 03/29/19 23:24 95 H 03/29/19 20:00 87 28 H 98 03/29/19 19:59 87 28 H 98 03/29/19 19:46 36.5 C 81 19 174/74 H 99 Resident Activity Tracking Resident Involvement: Resident Care Provided Care Provided: Adult Hospital Medicine
--- NOTE | 2019-03-30 08:05 | XRay Report ---
XR chest 1V portable CLINICAL HISTORY: 74 years-old Female presenting with Respiratory distress. TECHNIQUE: Portable upright AP view of the chest was obtained. COMPARISON: 03/29/2019. FINDINGS: Tunneled right internal jugular central venous catheter remains positioned at the lower SVC. Atherosc lerosis of aortic arch. Mediastinal surgical clips in the region of the left hilum and post surgical changes of the left apex as on prior exam. Cardiac silhouette top normal in size. Diffuse reticular o pacities with superimposed hazy and more dense opacity in the right upper lung as well as at the lung bases. This has not significantly changed since the prior exam and does not appear improved. Small r ight pleural effusion may be present. No large pneumothorax. Degenerative changes of the thoracic spi ne. Upper abdomen normal. IMPRESSION: 1. No evidence of interval improvement with persistent right upper and bibasilar infiltrates superim posed on chronic lung disease most characteristic of multifocal pneumonia. 2. Small right pleural effusion, which may be new or increased from prior. 3. Post surgical changes of the left lung. Electronically signed by: Yuri Delong M.D. 03/30/2019 8:03 AM
[2019-03-30] MEDS: LACTOBACILLUS ACIDOPHILUS (FLORANEX) TAB PO SCH ×3 (08:16→16:25)
[2019-03-30] MEDS: POTASSIUM CHLORIDE 10 MEQ TABCR PO SCH ×2 (08:17→20:36)
[2019-03-30] MEDS: dilTIAZem HCL 240 MG CAPCR PO SCH (08:17)
[2019-03-30] MEDS: DOCUSATE SODIUM 100 MG CAP PO SCH ×2 (08:17→20:36)
[2019-03-30] MEDS: LOSARTAN POTASSIUM 50 MG TAB PO SCH (08:17)
[2019-03-30] MEDS: POLYETHYLENE (MIRALAX) 17 GM PACK PO SCH (08:17)
[2019-03-30] MEDS: ACETAMINOPHEN 325 MG TAB PO PRN ×2 (08:20→16:30)
[2019-03-30] MEDS: ALPRAZolam 0.5 MG TABLET PO SCH (08:20)
[2019-03-30] MEDS ORDERED: POTASSIUM CHLORIDE 10 MEQ TABCR PO STA (08:25)
--- NOTE | 2019-03-30 11:19 | Infectious Disease Consult ---
Date of Consultation March 30, 2019 Assessment & Plan (1) Infective endocarditis: doubt sob is due to underlying infection. may have had aspiration pneumonitis but no clinical evidence of pna. Initially had leukocytosis but has resolved, also received steroids. She has been afebrile since admission. prolcalcitonin only mildly elevated (would expect to be elevated with IE). She has had no clinical decline over the past several days with no anti-pseudomonal treatment. will stop vanco, mrsa swab negative, doubt mrsa pna. doubt pseudomonas as well. will continue as planned with ampicillin and ctx for IE. she has h/o lung cancer, chronic smoking, and low hbg on admission which likely contribute to sob. More concerning to me, is recent diagnosis of IE of both MV and AV with fairly sizeable vegetations. concerned for AR due to IE as cause for new onset resp distress, suggest repeat echo to assess for this. If she is developing regurgitation/ aortic insufficiency would need repeat cardio eval for potential valve replacement. will follow. (2) Discitis, unspecified, multiple sites in spine: (3) Septicemia due to enterococcus: History of Present Illness Attending Physician: Toni Jiménez DO pt admitted on 03/25 for resp distress from snf. Was recently hospitalized here and was found to have AV, MV IE, multiple cultures + for E. facalis, has h/o lung cancer with treatment and long standing port. Port was removed during last admission and port culture + for E. faecalis as well, was found to have clot on port. She was d/c on senior care amp and ctx for IE, not felt to be surgical candidate during last admission. blood cultures this admission negative and final x 2. remains on IE treatment. she was unable to have picc placed and underwent Velásquez cath for abx, working well no pain. She was also found to have discitis during last admission, s/p ortho eval, no surgery indicated. no back pain currently. tolerating abx, no n/v/d/abd pain, not eating much but states she is eating what she would normally eat at home, appears to have lost weight since last admission. she is now on high flow O2. She has had multiple cxr and a cta on 03/25. negative for PE, effusions noted and suspected b/l apical infiltrates seen. currently denies cough or cp. no sputum culture done. was placed emperically on vanco, remains on this, tolerating well. MRSA swab negative. procalcitonin mildly elevated at 0.9. She states she was to be d/c some days ago and is anxious to leave hospital. wbc initially 15 (did recieve IV steroids) now 9. Hgb was 6.9 on admission, improved to 10. Has been afebrile since admission to hospital and denies f/c. ID consulted to eval for possible need for anti-pseudomonas therapy. Allergies Allergy/AdvReac Type Severity Reaction Status Date / Time No Known Allergies Allergy Verified 03/25/19 04:05 Home Medications Home Medications Medication Instructions Recorded Confirmed Type diltiazem HCl 240 mg PO DAILY 12/14/18 03/25/19 History docusate sodium [Colace] 100 mg PO BID 12/14/18 03/25/19 History Lactobacillus acidoph-L.bulgar 4 tab PO TIDM #360 tab 03/21/19 03/25/19 Rx [Floranex] Xarelto 20 mg PO PM #0 tab 03/21/19 03/25/19 Rx alprazolam 0.5 mg PO DAILY #3 tab 03/21/19 03/25/19 Rx ampicillin sodium 2 gm IV Q6H 34 Days #136 ea 03/21/19 03/25/19 Rx losartan 100 mg PO DAILY #30 tab 03/21/19 03/25/19 Rx nicotine [Nicoderm CQ] 21 mg TRANSDERMAL QAM PRN #7 ea 03/21/19 03/25/19 Rx tramadol 50 mg PO Q4H PRN #18 tab 03/21/19 03/25/19 Rx acetaminophen [Tylenol] 650 mg PO Q4 PRN 03/25/19 03/25/19 History albuterol sulfate 2.5 mg NEB Q4H PRN 03/25/19 03/25/19 History ceftriaxone 2 gm IV Q12 03/25/19 03/25/19 History polyethylene glycol 3350 [Miralax] 17 g PO DAILY 03/25/19 03/25/19 History polyethylene glycol 3350 [Miralax] 17 g PO UD PRN 03/25/19 03/25/19 History potassium chloride 10 meq PO BID 03/25/19 03/25/19 History sennosides-docusate sodium 1 tab PO UD PRN 03/25/19 03/25/19 History [Senokot-S] Patient History Medical History COPD (chronic obstructive pulmonary disease) Lung cancer Mitral regurgitation Surgical History S/P lobectomy of lung LLL, in 09/2017 Family History Father Hypertension Social History Preferred Language: Estonian Communication Ability: Effective Visual Impairment: No Limitations Hearing Ability: Normal Reeling Operator Required: No Beliefs That Will Affect Care: None marital status: Unknown Current Living Situation: Alone Other Information That Helps Us Care for You: No Feels Safe at Home: Yes Smoking Status: Current every day smoker Tobacco Type: cigarettes Cigarettes Per Day: 10-20 Do You Dip or Chew Tobacco: No Second Hand Exposure: No Tobacco Cessation Education Requested by Patient: No Hx Alcohol Use: No Hx Substance Use: No Review of Systems Review of Systems: All systems reviewed & are unremarkable except as noted in HPI & below Physical Exam Constitutional: WD/WN, vitals as above + ill appearing and + cachectic Eyes: PERRL, conjunctivae normal, anicteric sclerae ENMT: external ear and nose normal, oropharynx normal Neck: normal visual inspection Respiratory: normal respiratory effort, lungs clear to auscultation Auscultation: + diminished lung sounds Cardiovascular: RRR, no murmur, no edema Gastrointestinal (Abdomen): normal bowel sounds, soft, nontender, no hepatosplenomegaly Musculoskeletal: no cyanosis or clubbing, extremities motor strength 5/5 Skin: no rashes, warm and dry Psychiatric: A+Ox3, euthymic affect Results & Data Vital Signs (Past 12 Hours) Vital Signs Temp Pulse Pulse Pulse Resp BP BP 03/30/19 10:57 36.3 C L 82 19 130/61 03/30/19 07:34 36.4 C L 68 20 184/78 H 03/30/19 07:11 76 18 03/30/19 06:18 90 03/30/19 04:00 36.6 C 78 19 184/73 H 03/30/19 01:18 80 80 19 03/29/19 23:59 36.6 C 74 19 173/71 H 03/29/19 23:30 86 26 H 03/29/19 23:24 95 H Pulse Ox 03/30/19 10:57 98 03/30/19 07:34 95 03/30/19 07:11 90 03/30/19 06:18 03/30/19 04:00 96 03/30/19 01:18 100 03/29/19 23:59 99 03/29/19 23:30 100 03/29/19 23:24 Laboratory Results Microbiology 03/25/19 03:17 Blood Blood Culture - Final No growth 03/25/19 02:15 Blood Blood Culture - Final No growth (1) Infective endocarditis Chronicity: acute Infective endocarditis organism: bacterial Qualified Code(s): I33.0 - Acute and subacute infective endocarditis
[2019-03-30] MEDS ORDERED: FUROSEMIDE 40 MG in SYRINGE 0 ML IV ONE (11:45)
[2019-03-30] MEDS: VANCOMYCIN HCL 750 MG in SODIUM CHLORIDE 0.9% 250 ML IV SCH (12:05)
--- NOTE | 2019-03-30 14:11 | CT Scan Report ---
CT chest wo con CLINICAL HISTORY: 74 years-old Female presenting with Respiratory distress possible HAP. TECHNIQUE: Multidetector CT imaging of the chest was performed without the use of intravenous contras t. IV contrast: None. One or more dose lowering techniques were used consistent with the principles o f ALARA (as low as reasonably achievable), including automatic exposure control, mA or kV adjustment to individual patient size, and/or use of iterative reconstruction. COMPARISON: CTA chest from 03/25/2019. CT DOSE (mGy.cm): The estimated cumulative dose is 164.61 mGy.cm. FINDINGS: Quick Print Operator topogram: Bilateral parenchymal infiltrates. Soft tissues: Right internal jugular tunneled central venous catheter terminates in the lower SVC. No rmal thyroid. Numerous subcentimeter mediastinal lymph nodes suggested in the right paratracheal and precarinal regions, likely reactive. Evaluation of the zoran limited without intravenous contrast. Ath erosclerosis of the aorta. Normal heart size. Leftward mediastinal shift as on prior exam as a result of postsurgical change. Coronary artery and aortic valve calcification. Moderate right and small lef t pleural effusions, which are grossly simple appearing allowing for noncontrast technique. Upper abd omen normal. Lungs and airways: No pneumothorax. Minimal debris noted in the trachea. Postsurgical changes of left lower lobectomy. Partial occlusion of lingular segmental bronchi. Extensive debris also suggested in subsegmental bronchi of the right lower lobe worsened from prior. Pulmonary arteries are not signifi cantly enlarged relative to adjacent bronchi. Background moderate upper lobe predominant centrilobula r emphysema. Significant interval progression of multifocal patchy solid and groundglass infiltrates superimposed on emphysema. There is also a significant atelectatic component within the dependent por tions of the right lower lobe and left upper lobe. Musculoskeletal: Degenerative changes of the spine. Subacute anterior right fifth rib fracture. Persi stent irregularity and osteolysis of the endplates at T11-12 compatible with known discitis osteomyel itis. IMPRESSION: 1. Interval progression of multifocal groundglass and solid consolidation involving all of the remai avani lobes consistent with worsening infection. 2. Extensive subsegmental bronchial debris in the right lower lobe and lingular bronchi. 3. Postsurgical changes of left lower lobectomy. 4. Background emphysema. 5. Moderate right and small left pleural effusions. 6. 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 Electronically signed by: Yuri Delong M.D. 03/30/2019 2:10 PM
[2019-03-30] MEDS: RIVAROXABAN 15 MG TAB PO SCH (20:36)
[2019-03-31] MEDS: LEVALBUTEROL HCL 0.63 MG/3 ML NEB NEB SCH ×4 (01:27→18:42)
[2019-03-31] MEDS: VANCOMYCIN HCL 750 MG in SODIUM CHLORIDE 0.9% 250 ML IV SCH ×2 (03:09→18:12)
[2019-03-31] MEDS: AMPICILLIN 2,000 MG in SODIUM CHLOR 0.9% AD-VAN 100 ML IV SCH ×4 (05:20→20:53)
[2019-03-31 06:35] LABS: Basophils # (auto) 0.03 K/uL (0-0.2); Basophils % (auto) 0.4 %; Eosinophils # (auto) 0.16 K/uL (0-0.5); Eosinophils % (auto) 1.9 %; Hematocrit (blood only) 29.9 % (37-47); Hemoglobin 10.2 g/dL (12.0-16.0); Immature Granulocytes # (auto) 0.01 K/uL (0.00-0.02); Immature Granulocytes % (auto) 0.1 %; Lymphocytes # (auto) 0.89 K/uL (1.2-3.4); Lymphocytes % (auto) 10.7 %; Mean Corpuscular Hgb Conc 34.1 g/dL (32-36); Mean Corpuscular Volume 84.5 fL (80-100); Mean Platelet Volume 9.1 fL (7.4-10.4); Monocytes # (auto) 0.46 K/uL (0.11-0.59); Monocytes % (auto) 5.5 %; Neutrophils # (auto) 6.75 K/uL (1.4-6.5); Neutrophils % (auto) 81.4 %; Platelet Count 207 K/uL (130-400); RDW Coefficient of Variation 17.6 % (11.5-14.5); RDW Standard Deviation 50.7 fL (36.4-46.3); Red Blood Count 3.54 M/uL (4.2-5.4)
[2019-03-31 07:04] LABS: BUN Creatinine Ratio 26.2 (10-20); Calcium 7.8 mg/dl (8.5-10.1); Creatinine Clr Calc Pharmacy 46.1 ml/min; Est GFR (Non-African American) 81.1; Potassium 3.5 mmol/L (3.5-5.1)
[2019-03-31] MEDS ORDERED: FUROSEMIDE 40 MG in SYRINGE 0 ML IV SCH (09:00)
[2019-03-31] MEDS: dilTIAZem HCL 240 MG CAPCR PO SCH (09:12)
[2019-03-31] MEDS: POTASSIUM CHLORIDE 10 MEQ TABCR PO SCH ×2 (09:13→20:52)
[2019-03-31] MEDS: LACTOBACILLUS ACIDOPHILUS (FLORANEX) TAB PO SCH ×3 (09:13→17:03)
[2019-03-31] MEDS: LOSARTAN POTASSIUM 50 MG TAB PO SCH (09:13)
[2019-03-31] MEDS: DOCUSATE SODIUM 100 MG CAP PO SCH ×2 (09:13→20:58)
[2019-03-31] MEDS: POLYETHYLENE (MIRALAX) 17 GM PACK PO SCH (09:14)
[2019-03-31] MEDS: ALPRAZolam 0.5 MG TABLET PO SCH (09:16)
[2019-03-31] MEDS: ACETAMINOPHEN 325 MG TAB PO PRN ×2 (09:16→17:18)
[2019-03-31] MEDS: cefTRIAXone SODIUM 2,000 MG in DEXTROSE 5% 50 ML IV SCH ×2 (10:03→21:40)
--- NOTE | 2019-03-31 12:35 | Family Medicine Progress Note ---
Date of Service March 31, 2019 Assessment & Plan (1) Shortness of breath: 74-year-old female with PMH L Lung ca, RA, paroxysmal A fib, smoker, HTN, spinal discitis was admitted on 25 Mar 2019 for very acute shortness of breath. Of note, she was an inpatient from March 10 to March 21 for infective endocarditis amongst other issues. Shortness of breath * Patient on nasal cannula today much more comfortable. * CT yesterday shows diffuse opacities, concerning for aspiration vs pulmonary edema vs infective process * ID consulted, do not believe the patient has pneumonia despite concern on CT based on patient's clinical appearance. * Echo showed moderate aortic insufficiency and some mitral regurgitation, somewhat worse than previous exam * Consulted cardiology they are not convinced her symptoms are due to valvular dysfunction. They recommend continuing to diurese and treat her IE and if symptoms do not resolve over time looking into surgery * No fevers chills or other signs of pneumonia besides exam. * Will increase diuresis to 40 mg BID. Infective Endocarditis * Mitral valve and aortic valve infection of Enterococcus faecalis * Continue ampicillin and Rocephin through April 24 Anemia * Patient with chronic anemia, thought to be secondary to either chronic inflammation or small GI bleed (on xarelto) * Plan is to transfuse as necessary * Hemoglobin 10.2 currently * Will continue to monitor Hypertension * Losartan increased to 150 mg Paroxysmal atrial fibrillation * Continue diltiazem and xarelto. Rheumatoid arthritis * Stable with notable ulnar deviation of phalanges Not presently on any DMARDs. Anxiety * Continue home Xanax. Spinal discitis * T11-T12 as well as L3-L4. Seen by orthopedics and previous admission, no surgical intervention recommended at that time. Has some ongoing back pain, so continue home tramadol. Cognitive impairment * Concerns for same / dementia on last admission. MRI of her brain was negative for septic emboli. Dr. Anaya spoke with [id number]. Apparently the patient has been more confused in recent weeks. Will cont to monitor * Appears to have brief moments of confusion at times, but for large part is A&Ox3 Hemoptysis * Likely secondary to epistaxis from oxygen therapy not currently experiencing this symptom. * No suspicious lesions on Chest imaging despite history of lung cancer. * Will continue to monitor FEN/GI: Heart healthy DVT prophylaxis: Xarelto Dispo: Cont on tele. Pt has been accepted back to [facility], pending control over hypoxemic respiratory failure Full Code Supervising Physician Co-Signing Physician Notes I personally examined the patient and verified all swan points of history and exam, discussed case, and agree with decision making with Dr Morris. Breathing okay. No new complaints. Hopefully for rehab placement tomorrow. Vitals noted, in general she is awake and alert pleasant no distress. Breathing nasal cannula without distress no accessory muscles. Skin shows no rashes no pallor or icterus. Hypoxiaappearing to be mixed picture between pneumonia and pulmonary edema. Improving. Continue diuresis. Pneumoniaappears to be aspiration, abx for endocarditis appearing to suffice Acute pulmonary edema related to acute heart failure with preserved ejection fractioncontinue diuresis. Subjective Veronica Mendoza is in better spirits today, she is back on nasal cannula and is much more comfortable. She requested more activity today. She tells me she is not at all short of breath, has had no fevers, chills, lightheadedness, palpitations or other concerning symptoms. No cough this morning. Though she occasionally has had mild cough with some hemoptysis. She tells me she has an appetite and has had no abdominal pain , nausea or vomiting. Review of Systems Review of Systems: All systems reviewed & are unremarkable except as noted in HPI & below Physical Exam Constitutional: + cachectic, cooperative and comfortable; no acute distress Respiratory: + uses accessory muscles and able to speak in complete sentences Auscultation: + crackles, + rales and + wheezes Cardiovascular: Rate/Rhythm: regular rate, regular rhythm and + tachycardic Heart Sounds: no click, no gallop, no murmur and no cardiac rub Extremities: no calf tenderness Gastrointestinal (Abdomen): normal bowel sounds, soft, nontender, no hepatosplenomegaly Results & Data Vital Signs (Past 12 Hours) Vital Signs Temp Pulse Pulse Resp BP Pulse Ox 03/31/19 10:53 36.8 C 88 24 156/74 H 97 03/31/19 07:36 36.4 C L 95 H 28 H 183/66 H 88 L 03/31/19 07:02 73 20 98 03/31/19 05:14 85 16 95 03/31/19 03:19 36.5 C 95 H 20 177/64 H 91 03/31/19 01:33 74 16 98 03/31/19 01:31 74 16 98 Resident Activity Tracking Resident Involvement: Resident Care Provided Care Provided: Adult [facility] Medicine
--- NOTE | 2019-03-31 13:58 | Infectious Disease Progress Nt ---
Date of Service March 31, 2019 Assessment & Plan (1) Infective endocarditis: doubt sob is due to underlying infection. may have had aspiration pneumonitis but no clinical evidence of pna. Initially had leukocytosis but has resolved, also received steroids. She has been afebrile since admission. prolcalcitonin only mildly elevated (would expect to be elevated with IE). She has had no clinical decline over the past several days with no anti-pseudomonal treatment. will stop vanco, mrsa swab negative, doubt mrsa pna. doubt pseudomonas as well. will continue as planned with ampicillin and ctx for IE. If concerned for ongoing aspiration/hcap would suggest sputum culture/broch. echo done, moderate regurgitation ? if this is playing a role, still with moderate sized vegetations on both AV and MV despite IV abx, ? need for cardiac surgery eval. (2) Discitis, unspecified, multiple sites in spine: (3) Septicemia due to enterococcus: Subjective pt remains on amp, ctx, and vanco. ct chest with effusions, edema infiltrate and emphysema. no fevers overnight. echo done, moderate aortic and mitral regurg with moderate size vegetations remaining. wbc 8.3. on NC O2. Results & Data Vital Signs (Past 12 Hours) Vital Signs Temp Pulse Pulse Resp BP Pulse Ox 03/31/19 10:53 36.8 C 88 24 156/74 H 97 03/31/19 07:36 36.4 C L 95 H 28 H 183/66 H 88 L 03/31/19 07:02 73 20 98 03/31/19 05:14 85 16 95 03/31/19 03:19 36.5 C 95 H 20 177/64 H 91 Laboratory Results Microbiology 03/25/19 03:17 Blood Blood Culture - Final No growth 03/25/19 02:15 Blood Blood Culture - Final No growth (1) Infective endocarditis Chronicity: acute Infective endocarditis organism: bacterial Qualified Code(s): I33.0 - Acute and subacute infective endocarditis
--- NOTE | 2019-03-31 15:46 | Fluoroscopy Report ---
FL video swallow HISTORY: Abnormal chest CT Suspected aspiration TECHNIQUE: Video fluoroscopic evaluation of swallowing was performed in the AP and lateral projection s by the speech pathology staff. The patient is fed nectar-thick and thin liquid barium, a barium coa anil wafer, and barium pudding. FLUOROSCOPY TIME: 4.2 minutes. NUMBER OF FLUOROSCOPY IMAGES: 0 COMPARISON STUDY: None. FINDINGS: When swallowing thick liquids with a teaspoon there was penetration and trace aspiration. W hen swallowing with a cup, with adjacent maneuver there was penetration inconsistent trace aspiration . When swallowing nectar thick liquids, there is equivocal trace aspiration. When swallowing pudding as well as a cracker with paste there was no evidence for aspiration. There is mild disordered esopha geal motility. IMPRESSION: 1. Aspiration of thin liquids. 2. Please see the speech pathologist report for detailed findings and recommendations. Electronically signed by: Geoff Elaine M.D. 03/31/2019 3:45 PM
--- NOTE | 2019-03-31 16:05 | Cardiology Progress Note ---
Date of Service March 31, 2019 Assessment & Plan (1) Shortness of breath: Despite the CT findings, she was not felt to have an infectious etiology for her current dyspnea. She seems to be requiring less supplemental oxygen today. She did receive a dose of diuretic this morning the effective which has yet to be seen. The results of her echocardiogram suggests worsening mitral regurgitation although this is not a likely etiology for her acute decompensation as the overall regurgitation is not severe. However, it would seem reasonable to continue with diuresis. She likely does have an element of pulmonary edema. We can monitor her urine output as well as her renal status and clinical symptoms to determine if she is approaching euvolemia. (2) Infective endocarditis: If the patient has refractory heart failure in the setting of significant mitral regurgitation she will need to be evaluated for surgical intervention of her endocarditis. Other indications would be persistent bacteremia or thromboembolic events. She appears to be a poor candidate for surgical intervention in any regard. Hopefully with some diuresis and continued antibiotic therapy will see improvement in her clinical course. (3) Paroxysmal atrial fibrillation: Currently maintaining sinus rhythm. Continue anticoagulation Subjective The patient was interviewed at the bedside today and states that her breathing is somewhat better. She has a nonproductive cough on occasion. She reports a poor appetite but continues to eat some food. She is about to attempt ambulati on but is spent little time out of bed recently. Review of Systems Review of Systems: Per HPI Physical Exam Physical Exam: She is alert and oriented x3. Mood affect appear normal. She answered all questions appropriately. HEENT: Sclerae are anicteric. Pupils are equal and reactive to light and accommodation. Extraocular movements were intact. Neuro: Cranial nerves intact Lungs: Diffuse rhonchorous breath sounds without expiratory wheezing. Crackles at the bases bilaterally. Cardiac: The rhythm was regular. S1 and S2 were normal. Holosystolic murmur Abdomen: The abdomen was soft and nontender. Extremities: Patient has bilateral radial pulses that are equal in intensity. There is no evidence cyanosis or clubbing. Skin: There are no rashes noted on examination today. She has ecchymosis over the site of her Velásquez catheter. Results & Data Vital Signs (Past 12 Hours) Vital Signs Temp Pulse Pulse Resp BP Pulse Ox 03/31/19 15:37 36.5 C 74 17 148/71 H 94 03/31/19 10:53 36.8 C 88 24 156/74 H 97 03/31/19 07:36 36.4 C L 95 H 28 H 183/66 H 88 L 03/31/19 07:02 73 20 98 03/31/19 05:14 85 16 95 Laboratory Results Abnormal Lab Results 03/31/19 03/31/19 03/31/19 05:53 05:53 08:51 WBC 8.30 RBC 3.54 L Hgb 10.2 L Hct 29.9 L MCV 84.5 MCH 28.8 MCHC 34.1 RDW Std Deviation 50.7 H RDW Coeff of Jose 17.6 H Plt Count 207 MPV 9.1 Immature Gran % (Auto) 0.1 Neut % (Auto) 81.4 Lymph % (Auto) 10.7 Keith % (Auto) 5.5 Eos % (Auto) 1.9 Baso % (Auto) 0.4 Immature Gran # (Auto) 0.01 Neut # (Auto) 6.75 H Lymph # (Auto) 0.89 L Keith # (Auto) 0.46 Eos # (Auto) 0.16 Baso # (Auto) 0.03 Sodium 141 Potassium 3.5 Chloride 108 H Carbon Dioxide 28 Anion Gap 5.0 BUN 19 H Creatinine 0.73 Est Cr Clr Drug Dosing 46.1 Est GFR ( Amer) 94.0 Est GFR (Non-Af Amer) 81.1 BUN/Creatinine Ratio 26.2 H Glucose 80 Calcium 7.8 L Procalcitonin 0.[address] scan of the chest performed yesterday suggested multifocal pneumonia and possible aspiration due to bronchial debris. Echocardiogram performed during this admission reveals both aortic and mitral lesions with perhaps worsened mitral regurgitation (1) Infective endocarditis Infective endocarditis organism: bacterial Chronicity: acute Qualified C ode(s): I33.0 - Acute and subacute infective endocarditis
[2019-03-31] MEDS: FUROSEMIDE 40 MG in SYRINGE 0 ML IV SCH (17:03)
[2019-03-31] MEDS: RIVAROXABAN 15 MG TAB PO SCH (20:52)
[2019-04-01] MEDS: LEVALBUTEROL HCL 0.63 MG/3 ML NEB NEB SCH ×4 (02:02→19:30)
[2019-04-01] MEDS: AMPICILLIN 2,000 MG in SODIUM CHLOR 0.9% AD-VAN 100 ML IV SCH ×4 (04:48→21:16)
[2019-04-01 05:33] LABS: Basophils # (auto) 0.02 K/uL (0-0.2); Basophils % (auto) 0.2 %; Eosinophils # (auto) 0.21 K/uL (0-0.5); Eosinophils % (auto) 2.2 %; Hematocrit (blood only) 29.5 % (37-47); Immature Granulocytes # (auto) 0.03 K/uL (0.00-0.02); Immature Granulocytes % (auto) 0.3 %; Lymphocytes # (auto) 0.78 K/uL (1.2-3.4); Lymphocytes % (auto) 8.4 %; Mean Corpuscular Hgb Conc 33.9 g/dL (32-36); Mean Corpuscular Volume 85.3 fL (80-100); Mean Platelet Volume 8.9 fL (7.4-10.4); Monocytes # (auto) 0.59 K/uL (0.11-0.59); Monocytes % (auto) 6.3 %; Neutrophils # (auto) 7.71 K/uL (1.4-6.5); Neutrophils % (auto) 82.6 %; Platelet Count 208 K/uL (130-400); RDW Coefficient of Variation 17.7 % (11.5-14.5); RDW Standard Deviation 51.6 fL (36.4-46.3); Red Blood Count 3.46 M/uL (4.2-5.4); White Blood Count 9.34 K/uL (4.8-10.8)
[2019-04-01 05:59] LABS: BUN Creatinine Ratio 24.4 (10-20); Calcium 7.6 mg/dl (8.5-10.1); Creatinine Clr Calc Pharmacy 40.6 ml/min; Est GFR (African American) 80.5; Est GFR (Non-African American) 69.5; Potassium 3.2 mmol/L (3.5-5.1)
[2019-04-01] MEDS ORDERED: POTASSIUM CHLORIDE 20 MEQ TABCR PO STA (08:14)
[2019-04-01] MEDS: POTASSIUM CHLORIDE 10 MEQ TABCR PO SCH ×2 (08:31→21:17)
[2019-04-01] MEDS: LOSARTAN POTASSIUM 50 MG TAB PO SCH (08:32)
[2019-04-01] MEDS: DOCUSATE SODIUM 100 MG CAP PO SCH ×2 (08:32→21:15)
[2019-04-01] MEDS: dilTIAZem HCL 240 MG CAPCR PO SCH (08:32)
[2019-04-01] MEDS: LACTOBACILLUS ACIDOPHILUS (FLORANEX) TAB PO SCH ×3 (08:32→17:36)
[2019-04-01] MEDS: FUROSEMIDE 40 MG in SYRINGE 0 ML IV SCH (08:32)
[2019-04-01] MEDS: POLYETHYLENE (MIRALAX) 17 GM PACK PO SCH (08:33)
[2019-04-01] MEDS: ACETAMINOPHEN 325 MG TAB PO PRN ×2 (08:38→17:36)
[2019-04-01] MEDS: ALPRAZolam 0.5 MG TABLET PO SCH (08:38)
--- NOTE | 2019-04-01 10:16 | Infectious Disease Progress Nt ---
Date of Service April 01, 2019 Assessment & Plan (1) Infective endocarditis: continue current abx as planned. clinically improved. suspect ct/x ray findings more likely related to pneumonitis and not HCAP. would not broaden abx at this time. continue supportive care/aspiration precautions. no new ID recs at this time. (2) Discitis, unspecified, multiple sites in spine: (3) Septicemia due to enterococcus: Subjective pt seen in followup, oob to chair on my exam. overall feeling better. cardiology following, increased diuretics, breathing continues to improve. now on NC O2, high flow d/c. no cp, denies cough, wheeze, + jeter but sob while at rest. no f/c. tolerating abx, remains on amp and ctx. wbc 9.3. video swallow done, aspirating thin liquids. no abd pain, no n/v/d. no pain at cath site. anxious to be d/c. Review of Systems Review of Systems: All systems reviewed & are unremarkable except as noted in HPI & below Physical Exam Constitutional: WD/WN, vitals as above + ill appearing and + cachectic Eyes: PERRL, conjunctivae normal, anicteric sclerae ENMT: external ear and nose normal, oropharynx normal Neck: normal visual inspection Respiratory: normal respiratory effort, lungs clear to auscultation Auscultation: + diminished lung sounds Cardiovascular: RRR, no murmur, no edema Gastrointestinal (Abdomen): normal bowel sounds, soft, nontender, no hepatosplenomegaly Musculoskeletal: no cyanosis or clubbing, extremities motor strength 5/5 Skin: no rashes, warm and dry Psychiatric: A+Ox3, euthymic affect Results & Data Vital Signs (Past 12 Hours) Vital Signs Temp Pulse Pulse Pulse Resp BP BP 04/01/19 07:11 85 18 04/01/19 07:07 36.6 C 86 20 174/68 H 04/01/19 06:25 75 04/01/19 03:52 36.3 C L 92 H 24 151/68 H 04/01/19 02:02 94 H 18 03/31/19 23:31 36.3 C L 81 18 166/66 H 03/31/19 22:45 75 Pulse Ox 04/01/19 07:11 96 04/01/19 07:07 91 04/01/19 06:25 05/17/19 03:52 95 04/01/19 02:02 91 03/31/19 23:31 92 03/31/19 22:45 Laboratory Results Microbiology 03/25/19 03:17 Blood Blood Culture - Final No growth 03/25/19 02:15 Blood Blood Culture - Final No growth (1) Infective endocarditis Chronicity: acute Infective endocarditis organism: bacterial Qualified Code(s): I33.0 - Acute and subacute infective endocarditis
[2019-04-01] MEDS: cefTRIAXone SODIUM 2,000 MG in DEXTROSE 5% 50 ML IV SCH ×2 (10:37→21:18)
[2019-04-01] MEDS ORDERED: POTASSIUM CHLORIDE 20 MEQ TABCR PO ONE (11:00)
[2019-04-01] MEDS ORDERED: FUROSEMIDE 80 MG TAB PO SCH (17:00)
--- NOTE | 2019-04-01 17:11 | Family Medicine Progress Note ---
Date of Service April 01, 2019 Assessment & Plan (1) Shortness of breath: 74-year-old female with PMH L Lung ca, RA, paroxysmal A fib, smoker, HTN, spinal discitis was admitted on 25 Mar 2019 for very acute shortness of breath. Of note, she was an inpatient from March 10 to March 21 for infective endocarditis amongst other issues. Shortness of breath * Patient on nasal cannula 2 L today, breathing easily * CT 03/30 shows diffuse opacities, concerning for aspiration vs pulmonary edema vs infective process * Speech evaluation believes small amount of aspiration with thin liquids. * ID consulted, do not believe the patient has pneumonia despite concern on CT based on patient's clinical appearance. * Echo showed moderate aortic insufficiency and some mitral regurgitation, somewhat worse than previous exam * Consulted cardiology they are not convinced her symptoms are due to valvular dysfunction. They recommend continuing to diurese and treat her IE and if symptoms do not resolve over time looking into surgery * No fevers chills or other signs of pneumonia besides exam. * Diuresing with lasix 40 mg BID. 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 Rheumatoid arthritis * Stable with notable ulnar deviation of phalanges Not presently on any DMARDs. Anxiety * Continue home Xanax. Spinal discitis * T11-T12 as well as L3-L4. Seen by orthopedics and previous admission, no surgical intervention recommended at that time. Has some ongoing back pain, so continue home tramadol. Cognitive impairment * Concerns for same / dementia on last admission. MRI of her brain was negative for septic emboli. Dr. Anaya spoke with [id number]. Apparently the patient has been more confused in recent weeks. Will cont to monitor * Appears to have brief moments of confusion at times, but for large part is A&Ox3 Hemoptysis * Likely secondary to epistaxis from oxygen therapy not currently experiencing this symptom. * No suspicious lesions on Chest imaging despite history of lung cancer. * Will continue to monitor FEN/GI: Heart healthy DVT prophylaxis: Xarelto Dispo: Cont on tele. Pt has been accepted back to [facility], pending control over hypoxemic respiratory failure Full Code Supervising Physician Co-Signing Physician Notes I personally examined the patient and verified all swan points of history and exam, discussed case, and agree with decision making with Dr Morris. Breathing okay. No new complaints. just awaiting rehab approval Vitals noted, in general she is awake and alert pleasant no distress. Breathing nasal cannula without distress no accessory muscles. Skin shows no rashes no pallor or icterus. Hypoxiaappearing to be mixed picture between pneumonia and pulmonary edema. Improving. Switch to oral Lasix. Pneumoniaappears to be aspiration, abx for endocarditis appearing to suffice, will need ongoing speech therapy eval and treat. Acute pulmonary edema related to acute heart failure with preserved ejection fractionmed management as above. Subjective Ms. Mendoza is doing well today, breathing comfortably feels like she is at her baseline with breathing but feels very weak. She is adamant that she would like more physical activity and be discharged. Review of Systems Constitutional: + weakness; no fever, no chills and no sweats Respiratory: + cough and + hemoptysis (light, since starting oxygen); no dyspnea and no pain on inspiration Psychiatric: + anxiety Physical Exam Constitutional: + cachectic, cooperative and comfortable; no acute distress Respiratory: + uses accessory muscles and able to speak in complete sentences Auscultation: + crackles, + rales and + wheezes Cardiovascular: Rate/Rhythm: regular rate, regular rhythm and + tachycardic Heart Sounds: no click, no gallop, no murmur and no cardiac rub Extremities: no calf tenderness Gastrointestinal (Abdomen): normal bowel sounds, soft, nontender, no hepatosplenomegaly Results & Data Vital Signs (Past 12 Hours) Vital Signs Temp Pulse Pulse Pulse Resp BP BP 04/01/19 15:05 36.5 C 81 18 143/70 H 04/01/19 14:20 76 04/01/19 13:34 84 18 04/01/19 11:27 04/01/19 11:24 36.6 C 89 24 111/63 04/01/19 07:11 85 18 04/01/19 07:07 36.6 C 86 20 174/68 H 04/01/19 06:25 75 Pulse Ox 04/01/19 15:05 93 04/01/19 14:20 04/01/19 13:34 100 04/01/19 11:27 86 L 04/01/19 11:24 98 04/01/19 07:11 96 04/01/19 07:07 91 04/01/19 06:25 Resident Activity Tracking Resident Involvement: Resident Care Provided Care Provided: Adult Hospital Medicine
[2019-04-01] MEDS: FUROSEMIDE 20 MG TAB PO SCH (17:37)
--- NOTE | 2019-04-01 18:11 | Cardiology Progress Note ---
Date of Service April 01, 2019 Assessment & Plan (1) Shortness of breath: She is on aggressive dose of diuretics with a moderate diuresis yesterday. Renal function appears to be normal. Potassium was slightly low. He likely had an element of pulmonary edema. I think would be reasonable to continue her on her current diuretic dose monitoring her renal function closely. With elevation in her BUN or creatinine I think the dose can be reduced. Clinically she has improved. (2) Infective endocarditis: She will continue her current course of antibiotic. (3) Paroxysmal atrial fibrillation: Currently maintaining sinus rhythm. Continue anticoagulation I will be away from the hospital for the next 2 days. 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 Subjective This afternoon the patient claims to be feeling better. She was anxious to go home. She has a slight loosening in her cough. She states she feels less short of breath. She reports ambulating earlier today without significant dizziness or worsening dyspnea. Review of Systems Review of Systems: Per HPI Physical Exam Physical Exam: She is alert and oriented x3. Mood affect appear normal. She answered all questions appropriately. HEENT: Sclerae are anicteric. Pupils are equal and reactive to light and accommodation. Extraocular movements were intact. Neuro: Cranial nerves intact Lungs: Reduced breath sounds at the bases bilaterally with occasional crackles. No expiratory wheezing. Normal respiratory effort. Cardiac: The rhythm was regular. S1 and S2 were normal. Soft holosystolic murmur.. The PMI was not markedly displaced on palpation. Abdomen: The abdomen was soft and nontender. Extremities: Patient has bilateral radial pulses that are equal in intensity. There is no evidence cyanosis or clubbing. There was no evidence of significant peripheral edema bilaterally. Skin: There are no rashes noted on examination today. She has a lot of ecchymosis and occasional excoriations. Results & Data Vital Signs (Past 12 Hours) Vital Signs Temp Pulse Pulse Pulse Resp BP BP 04/01/19 15:05 36.5 C 81 18 143/70 H 04/01/19 14:20 76 04/01/19 13:34 84 18 04/01/19 11:27 04/01/19 11:24 36.6 C 89 24 111/63 04/01/19 07:11 85 18 04/01/19 07:07 36.6 C 86 20 174/68 H 04/01/19 06:25 75 Pulse Ox 04/01/19 15:05 93 04/01/19 14:20 04/01/19 13:34 100 04/01/19 11:27 86 L 04/01/19 11:24 98 04/01/19 07:11 96 04/01/19 07:07 91 04/01/19 06:25 Laboratory Results Abnormal Lab Results 04/01/19 04/01/19 05:14 05:14 WBC 9.34 RBC 3.46 L Hgb 10.0 L Hct 29.5 L MCV 85.3 MCH 28.9 MCHC 33.9 RDW Std Deviation 51.6 H RDW Coeff of Jose 17.7 H Plt Count 208 MPV 8.9 Immature Gran % (Auto) 0.3 Neut % (Auto) 82.6 Lymph % (Auto) 8.4 Burke % (Auto) 6.3 Eos % (Auto) 2.2 Baso % (Auto) 0.2 Immature Gran # (Auto) 0.03 H Neut # (Auto) 7.71 H Lymph # (Auto) 0.78 L Burke # (Auto) 0.59 Eos # (Auto) 0.21 Baso # (Auto) 0.02 Sodium 139 Potassium 3.2 L Chloride 104 Carbon Dioxide 31 Anion Gap 4.0 BUN 20 H Creatinine 0.83 Est Cr Clr Drug Dosing 40.6 Est GFR ( Amer) 80.5 Est GFR (Non-Af Amer) 69.5 BUN/Creatinine Ratio 24.4 H Glucose 88 Calcium 7.6 L (1) Infective endocarditis Infective endocarditis organism: bacterial Chronicity: acute Qualified Code(s): I33.0 - Acute and subacute infective endocarditis
[2019-04-01] MEDS: RIVAROXABAN 15 MG TAB PO SCH (21:17)
[2019-04-02] MEDS: LEVALBUTEROL HCL 0.63 MG/3 ML NEB NEB SCH ×4 (01:58→19:46)
[2019-04-02] MEDS: AMPICILLIN 2,000 MG in SODIUM CHLOR 0.9% AD-VAN 100 ML IV SCH ×4 (05:56→21:20)
[2019-04-02] MEDS: dilTIAZem HCL 240 MG CAPCR PO SCH (07:56)
[2019-04-02] MEDS: LACTOBACILLUS ACIDOPHILUS (FLORANEX) TAB PO SCH ×3 (07:56→17:15)
[2019-04-02] MEDS: DOCUSATE SODIUM 100 MG CAP PO SCH ×2 (07:57→21:22)
[2019-04-02] MEDS: LOSARTAN POTASSIUM 50 MG TAB PO SCH (07:57)
[2019-04-02] MEDS: POTASSIUM CHLORIDE 10 MEQ TABCR PO SCH ×2 (07:57→21:22)
[2019-04-02] MEDS: POLYETHYLENE (MIRALAX) 17 GM PACK PO SCH (07:59)
[2019-04-02] MEDS: ACETAMINOPHEN 325 MG TAB PO PRN ×2 (08:00→17:16)
[2019-04-02] MEDS: ALPRAZolam 0.5 MG TABLET PO SCH (08:00)
--- NOTE | 2019-04-02 08:44 | Family Medicine Progress Note ---
Date of Service April 02, 2019 Assessment & Plan (1) Shortness of breath: 74-year-old female with PMH L Lung ca, RA, paroxysmal A fib, smoker, HTN, spinal discitis was admitted on 25 Mar 2019 for very acute shortness of breath. Of note, she was an inpatient from March 10 to March 21 for infective endocarditis amongst other issues. Shortness of breath * Patient on nasal cannula 2 L today, breathing easily * CT 03/30 shows diffuse opacities, concerning for aspiration vs pulmonary edema vs infective process * Speech evaluation believes small amount of aspiration with all liquids, will continue to give thin liquids with known risk of aspiration. Oral hygeine before every meal to prevent risk of aspiration pneumonia. * ID consulted, do not believe the patient has pneumonia despite concern on CT based on patient's clinical appearance. * Echo showed moderate aortic insufficiency and some mitral regurgitation, somewhat worse than previous exam * Consulted cardiology they are not convinced her symptoms are due to valvular dysfunction. They recommend continuing to diurese and treat her IE and if symptoms do not resolve over time looking into surgery * No fevers chills or other signs of pneumonia besides exam. * Diuresing with lasix 40 mg BID. 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 Rheumatoid arthritis * Stable with notable ulnar deviation of phalanges Not presently on any DMARDs. Anxiety * Continue home Xanax. Spinal discitis * T11-T12 as well as L3-L4. Seen by orthopedics and previous admission, no surgical intervention recommended at that time. Has some ongoing back pain, so continue home tramadol. Cognitive impairment * Concerns for same / dementia on last admission. MRI of her brain was negative for septic emboli. Dr. Anaya spoke with [id number]. Apparently the patient has been more confused in recent weeks. Will cont to monitor * Appears to have brief moments of confusion at times, but for large part is A&Ox3 Hemoptysis * Likely secondary to epistaxis from oxygen therapy not currently experiencing this symptom. * No suspicious lesions on Chest imaging despite history of lung cancer. * Will continue to monitor FEN/GI: Heart healthy DVT prophylaxis: Xarelto Dispo: May step down to med/surg Awaiting authorization for SN[facility] Full Code Supervising Physician Co-Signing Physician Notes I personally examined the patient and verified all swan points of history and exam, discussed case, and agree with decision making with Dr Morris. Breathing okay. Frustrated that the insurance company did not bother to get back to us today about her approval. Vitals noted, in general she is awake and alert pleasant no distress. Breathing nasal cannula without distress no accessory muscles. Skin shows no rashes no pallor or icterus. Hypoxiaappearing to be mixed picture between pneumonia and pulmonary edema. Overall improved, continue oral Lasix titrate as needed. Pneumoniaappears to be aspiration, abx for endocarditis recovering well, will need ongoing speech therapy eval and treat. This suits her ideally for going to rehab. Acute pulmonary edema related to acute heart failure with preserved ejection fractionmed management as above, seems to be improving. Subjective Veronica Kelly resting comfortably today, very anxious to get out of the hospital. Review of Systems Review of Systems: All systems reviewed & are unremarkable except as noted in HPI & below Physical Exam Constitutional: + cachectic, cooperative and comfortable; no acute distress Respiratory: normal respiratory effort and able to speak in complete sentences; no labored breathing Auscultation: + rales and + wheezes Cardiovascular: Rate/Rhythm: regular rate, regular rhythm and + tachycardic Heart Sounds: no click, no gallop, no murmur and no cardiac rub Extremities: no calf tenderness Gastrointestinal (Abdomen): normal bowel sounds, soft, nontender, no hepatosplenomegaly Neurologic: PERRL, EOMI, accommodation nl, no face palsy, no dysarthria Psychiatric: A+Ox3, euthymic affect Results & Data Vital Signs (Past 12 Hours) Vital Signs Temp Pulse Pulse Pulse Resp BP BP 04/02/19 07:24 36.5 C 52 L 20 146/53 H 04/02/19 07:13 52 L 18 04/02/19 03:37 36.4 C L 74 22 146/67 H 04/02/19 02:04 84 18 04/02/19 00:47 78 04/02/19 00:07 36.4 C L 72 16 151/75 H Pulse Ox 04/02/19 07:24 96 04/02/19 07:13 96 04/02/19 03:37 94 04/02/19 02:04 95 04/02/19 00:47 04/02/19 00:07 94 Resident Activity Tracking Resident Involvement: Resident Care Provided Care Provided: Adult Hospital Medicine
[2019-04-02] MEDS: FUROSEMIDE 20 MG TAB PO SCH ×2 (10:20→17:16)
[2019-04-02] MEDS: cefTRIAXone SODIUM 2,000 MG in DEXTROSE 5% 50 ML IV SCH ×2 (11:43→22:35)
[2019-04-02] MEDS: RIVAROXABAN 15 MG TAB PO SCH (21:22)
[2019-04-03] MEDS: LEVALBUTEROL HCL 0.63 MG/3 ML NEB NEB SCH ×3 (01:52→14:15)
[2019-04-03] MEDS: AMPICILLIN 2,000 MG in SODIUM CHLOR 0.9% AD-VAN 100 ML IV SCH ×2 (03:56→09:30)
[2019-04-03 07:22] LABS: Basophils # (auto) 0.02 K/uL (0-0.2); Basophils % (auto) 0.2 %; Eosinophils # (auto) 0.22 K/uL (0-0.5); Eosinophils % (auto) 2.7 %; Hematocrit (blood only) 30.4 % (37-47); Hemoglobin 9.8 g/dL (12.0-16.0); Immature Granulocytes # (auto) 0.03 K/uL (0.00-0.02); Immature Granulocytes % (auto) 0.4 %; Lymphocytes # (auto) 0.62 K/uL (1.2-3.4); Lymphocytes % (auto) 7.5 %; Mean Corpuscular Hgb Conc 32.2 g/dL (32-36); Mean Corpuscular Volume 87.1 fL (80-100); Mean Platelet Volume 8.9 fL (7.4-10.4); Monocytes # (auto) 0.53 K/uL (0.11-0.59); Monocytes % (auto) 6.4 %; Neutrophils % (auto) 82.8 %; Platelet Count 198 K/uL (130-400); RDW Coefficient of Variation 18.5 % (11.5-14.5); RDW Standard Deviation 58.2 fL (36.4-46.3); Red Blood Count 3.49 M/uL (4.2-5.4); White Blood Count 8.22 K/uL (4.8-10.8)
[2019-04-03] MEDS: LACTOBACILLUS ACIDOPHILUS (FLORANEX) TAB PO SCH ×2 (07:40→12:10)
[2019-04-03 07:41] LABS: BUN Creatinine Ratio 22.9 (10-20); Creatinine Clr Calc Pharmacy 32.7 ml/min; Est GFR (Non-African American) 53.5; Potassium 3.4 mmol/L (3.5-5.1)
[2019-04-03] MEDS: POLYETHYLENE (MIRALAX) 17 GM PACK PO SCH ×2 (07:41→12:10)
[2019-04-03] MEDS: dilTIAZem HCL 240 MG CAPCR PO SCH (07:42)
[2019-04-03] MEDS: LOSARTAN POTASSIUM 50 MG TAB PO SCH (08:13)
[2019-04-03] MEDS: POTASSIUM CHLORIDE 10 MEQ TABCR PO SCH (08:14)
[2019-04-03] MEDS: FUROSEMIDE 20 MG TAB PO SCH (08:14)
[2019-04-03] MEDS: DOCUSATE SODIUM 100 MG CAP PO SCH (08:16)
[2019-04-03] MEDS: ACETAMINOPHEN 325 MG TAB PO PRN (08:16)
[2019-04-03] MEDS: ALPRAZolam 0.5 MG TABLET PO SCH (08:16)
[2019-04-03] MEDS: cefTRIAXone SODIUM 2,000 MG in DEXTROSE 5% 50 ML IV SCH (10:24)
--- NOTE | 2019-04-03 13:11 | Family Medicine Progress Note ---
Date of Service April 02, 2019 Assessment & Plan (1) Shortness of breath: 74-year-old female with PMH L Lung ca, RA, paroxysmal A fib, smoker, HTN, spinal discitis was admitted on 25 Mar 2019 for very acute shortness of breath. Of note, she was an inpatient from March 10 to March 21 for infective endocarditis amongst other issues. Shortness of breath * Patient on nasal cannula 2 L today, breathing easily * CT 03/30 shows diffuse opacities, concerning for aspiration vs pulmonary edema vs infective process * Speech evaluation believes small amount of aspiration with all liquids, will continue to give thin liquids with known risk of aspiration. Oral hygeine before every meal to prevent risk of aspiration pneumonia. * ID consulted, do not believe the patient has pneumonia despite concern on CT based on patient's clinical appearance. * Echo showed moderate aortic insufficiency and some mitral regurgitation, somewhat worse than previous exam * Consulted cardiology they are not convinced her symptoms are due to valvular dysfunction. They recommend continuing to diurese and treat her IE and if symptoms do not resolve over time looking into surgery * No fevers chills or other signs of pneumonia besides exam. * Diuresing with lasix 60 mg PO BID Breathing improved and renal function continues to look good. 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 Rheumatoid arthritis * Stable with notable ulnar deviation of phalanges Not presently on any DMARDs. Anxiety * Continue home Xanax. Spinal discitis * T11-T12 as well as L3-L4. Seen by orthopedics and previous admission, no surgical intervention recommended at that time. Has some ongoing back pain, so continue home tramadol. Cognitive impairment * Concerns for same / dementia on last admission. MRI of her brain was negative for septic emboli. Dr. Anaya spoke with [id number]. Apparently the patient has been more confused in recent weeks. Will cont to monitor * Appears to have brief moments of confusion at times, but for large part is A&Ox3 Hemoptysis * Likely secondary to epistaxis from oxygen therapy not currently experiencing this symptom. * No suspicious lesions on Chest imaging despite history of lung cancer. * Will continue to monitor FEN/GI: Heart healthy DVT prophylaxis: Xarelto Dispo: MED/SURG Full Code Supervising Physician Co-Signing Physician Notes I personally examined the patient and verified all swan points of history and exam, discussed case, and agree with decision making with Dr Morris. Breathing okay. Frustrated that the insurance company did not bother to get back to us today about her approval. Vitals noted, in general she is awake and alert pleasant no distress. Breathing nasal cannula without distress no accessory muscles. Skin shows no rashes no pallor or icterus. Hypoxiaappearing to be mixed picture between pneumonia and pulmonary edema. Overall improved, continue oral Lasix titrate as needed. Pneumoniaappears to be aspiration, abx for endocarditis recovering well, will need ongoing speech therapy eval and treat. This suits her ideally for going to rehab. Acute pulmonary edema related to acute heart failure with preserved ejection fractionmed management as above, seems to be improving. Shanell Martin is begging me to get her insurance to approve [employer] today. She is literally crying as I tell her it's not in my power. She continues to have no complaints but feels she is getting weaker and weaker here in the hospital. She continues to anxiously await discharge. No SOB, cough, fever, chills, or pain Review of Systems Review of Systems: All systems reviewed & are unremarkable except as noted in HPI & below Physical Exam Constitutional: + cachectic, cooperative and comfortable; no acute distress Respiratory: normal respiratory effort and able to speak in complete sentences; no labored breathing Auscultation: + rales Cardiovascular: Rate/Rhythm: regular rate, regular rhythm and + tachycardic Heart Sounds: no click, no gallop, no murmur and no cardiac rub Extremities: no calf tenderness Gastrointestinal (Abdomen): normal bowel sounds, soft, nontender, no hepatosplenomegaly Neurologic: PERRL, EOMI, accommodation nl, no face palsy, no dysarthria Psychiatric: A+Ox3, euthymic affect Results & Data Vital Signs (Past 12 Hours) Vital Signs Temp Pulse Pulse Pulse Resp BP BP 04/02/19 07:24 36.5 C 52 L 20 146/53 H 04/02/19 07:13 52 L 18 04/02/19 03:37 36.4 C L 74 22 146/67 H 04/02/19 02:04 84 18 04/02/19 00:47 78 04/02/19 00:07 36.4 C L 72 16 151/75 H Pulse Ox 04/02/19 07:24 96 04/02/19 07:13 96 04/02/19 03:37 94 04/02/19 02:04 95 04/02/19 00:47 04/02/19 00:07 94 Resident Activity Tracking Resident Involvement: Resident Care Provided Care Provided: Adult Hospital Medicine
--- NOTE | 2019-04-03 15:21 | Discharge Summary ---
Date of Service April 03, 2019 Admission HPI Per Admitting Provider 74-year-old female was brought to the emergency department by EMS for acute shortness of breath. Of note, the patient was an inpatient from March 10 to March 21 for infective endocarditis amongst other issues. She was discharged to [facility]. Patient says that over the past interval days she did not notice any particular acute health concerns. - Patient says that this morning around 1 AM she woke from sleep with the acute feeling of shortness of breath. She says this made her quite anxious, including the idea she would have to come back to the hospital. She denies any recent fevers, chest pain or shortness of breath, or feeling of illness. - Here in the emergency department, patient says at present she feels quite fine. 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 She says that at this point she does not wish to return to [facility] and would prefer to be discharged back to her own home. She says she lives alone but could get help. She notes frustration working with bilingual patient support caseworker in the past. --- Past medical history includes left lung cancer, rheumatoid arthritis, paroxysmal atrial fibrillation, smoker, hypertension, spinal discitis. --- Past surgical history includes left lower lobe lobectomy in 2017. --- Social history includes current smoker of up to 1 pack/day. Denies alcohol use. Usually lives at home alone. Admission Exam Per Admitting Provider GENERAL: Awake, alert, easily conversational, does not appear in acute distress. HENT: Normocephalic, atraumatic. Oropharynx unremarkable. EYES: Normal conjunctiva. Sclera non-icteric. NECK: Inspection normal. Supple and full ROM. No nuchal rigidity. CARDIAC: +S1S2 RRR, no murmurs. Right upper chest port accessed. RESPIRATORY: Clear to auscultation. No wheezes or rales. Normal respiratory effort without accessory muscle use. (She does have a DuoNeb in progress). GI: +BS, soft, non-distended. No tenderness to palpation. No rebound or guarding. No appreciable masses. EXTREMITIES: No pedal edema or calf tenderness. Moving all extremities naturally and easily. NEURO: No gross neuro deficits. Principal Diagnosis CHF, Hypoxemic respiratory failure, Infective Endocarditis Discharge Exam Constitutional + cachectic, cooperative and comfortable; no acute distress Respiratory normal respiratory effort and able to speak in complete sentences; no labored breathing Auscultation: + rales Cardiovascular Rate/Rhythm: regular rate, regular rhythm and + tachycardic Heart Sounds: no click, no gallop, no murmur and no cardiac rub Extremities: no calf tenderness Gastrointestinal (Abdomen) normal bowel sounds, soft, nontender, no hepatosplenomegaly Neurologic PERRL, EOMI, accommodation nl, no face palsy, no dysarthria Psychiatric A+Ox3, euthymic affect Discharge Data Allergies Allergy/AdvReac Type Severity Reaction Status Date / Time No Known Allergies Allergy Verified 03/25/19 04:05 Consultations 03/25/19 03:23 ED Decision to Admit Stat 03/25/19 06:39 Consult Case Management - Discharge Planning Routine 03/30/19 07:03 Consult Infectious Diseases Routine 03/31/19 08:53 Consult Cardiology Routine 04/01/19 08:12 Consult Case Management - Discharge Planning Routine Ordered Studies 03/25/19 02:23 CT angio chest PE protocol Urgent 03/30/19 08:00 CT chest wo con Urgent 03/31/19 13:30 FL video swallow Routine Hospital Course (1) Anxiety: Ms Veronica Mendoza is a 74 year old woman with paroxysmal A fib on xarelto, COPD, and the beginning stages of dementia who presented initially on 03/25 from [facility] for hypoxemic respiratory failure. 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 She has also been suffering from anemia. This is thought to be likely anemia of chronic inflammation secondary to her IE vs small GI bleed on xarelto. Hypoxemic Respiratory Failure Patient presenting with increased oxygen demand, given several breathing treatments which didn't seem to be effective. Imaging showed what looked to be diffuse pneumonia, but no clinical signs other than hypoxia. No increased white count and no fevers, chills, or other symptoms per patient. Patient became fluid overloaded after a transfusion and we began diuresing her more aggressively which improved her oxygenation Echo showed IE stable with only mild worsening of aortic insufficiency and mitral regurg, cardiology consulted and did not feel this was a main contributor to her worsening congestive heart failure. ID consulted as well, did not feel as though CT changes constituted pneumonia. Currently on oral lasix 60 mg BID not sure what she will ultimately need moving forward would recommend continuing to evaluate renal function moving forward with BMP in the next two days and careful monitoring of clinical fluid overload. Infective Endocardititis Mitral and aortic valves, continuing Ampicillin and Rocephin IV through April 24. Aspiration Speech pathology consulted for possible pneumonitis on chest CT. They believe that she is just very slightly aspirating on all liquids. We are continuing to give her thin liquids and solid foods with good oral hygeine based on their recommendations. Atrial fibrillation Continuing Diltiazem and Xarelto Anemia Careful monitoring hemoglobin q3d If below 7 transfuse. Patient will receive endoscopy following completion IE treatment. (2) Paroxysmal atrial fibrillation: (3) History of lung cancer: (4) Shortness of breath: (5) Hypoxia: (6) Chronic kidney disease, stage 3a: (7) Mitral regurgitation: (8) COPD (chronic obstructive pulmonary disease): (9) Current smoker: (10) Infective endocarditis: (11) Atrial fibrillation: (12) Rheumatoid arthritis: (13) Anemia: Total Time Total Time Spent Total Time Spent (In Minutes): <30 Total Time Includes: Examination of the Patient, Discharge Planning, Medication Reconciliation and Communication With Other Providers Discharge Plan Discharge Items Patient Disposition: Transfer Inpatient Rehab Fac Reason For Visit: DYSPNEA, HYPOXIA Discharge Diagnosis: Hypoxic respiratory failure Discharge Goals: Decrease discomfort, Improve function and Increase independence Activity: Per 'Additional Instructions' section Non-emergency contact: Primary Care Provider and Hospitalist Call non-emergency contact if: you have any medication questions, your symptoms worsen and your temperature is above 100.5 Follow-up/Referrals: [facility] [Primary Care Provider] - Diet: Regular Addtl Provider Instructions: Ms Veronica Mendoza is a 74 year old woman with paroxysmal A fib on xarelto, COPD, and the beginning stages of dementia who presented initially on 03/25 from [facility] for hypoxemic respiratory failure. 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 She has also been suffering from anemia. This is thought to be likely anemia of chronic inflammation secondary to her IE vs small GI bleed on xarelto. Hypoxemic Respiratory Failure Patient presenting with increased oxygen demand, given several breathing treatments which didn't seem to be effective. Imaging showed what looked to be diffuse pneumonia, but no clinical signs other than hypoxia. No increased white count and no fevers, chills, or other symptoms per patient. Patient became fluid overloaded after a transfusion and we began diuresing her more aggressively which improved her oxygenation Echo showed IE stable with only mild worsening of aortic insufficiency and mitral regurg, cardiology consulted and did not feel this was a main contributor to her worsening congestive heart failure. ID consulted as well, did not feel as though CT changes constituted pneumonia. Currently on oral lasix 60 mg BID not sure what she will ultimately need moving forward would recommend continuing to evaluate renal function moving forward with BMP in the next two days and careful monitoring of clinical fluid overload. Infective Endocardititis Mitral and aortic valves, continuing Ampicillin and Rocephin IV through April 24. Aspiration Speech pathology consulted for possible pneumonitis on chest CT. They believe that she is just very slightly aspirating on all liquids. We are continuing to give her thin liquids and solid foods with good oral hygeine based on their recommendations. Atrial fibrillation Continuing Diltiazem and Xarelto Anemia Careful monitoring hemoglobin q3d If below 7 transfuse. Patient will receive endoscopy following completion IE treatment. Prescriptions: New losartan 50 mg Tablet 150 mg PO DAILY 30 Days Qty: 90 RF: 0 furosemide 20 mg Tablet 60 mg PO DAILY 15 Days Qty: 45 RF: 0 Continued diltiazem HCl 240 mg Capsule,Extended Release 24 Hr 240 mg PO DAILY RF: 0 docusate sodium [Colace] 100 mg Capsule 100 mg PO BID RF: 0 nicotine [Nicoderm CQ] 21 mg/24 hr Patch 24 Hour 21 mg transdermal QAM PRN (Reason: nicotine craving) Qty: 7 RF: 0 tramadol 50 mg Tablet 50 mg PO Q4H PRN (Reason: pain) Qty: 18 RF: 0 Lactobacillus acidoph-L.bulgar [Floranex] 1 million cell Tablet 4 tab PO TIDM Qty: 360 RF: 0 ampicillin sodium 2 gram recon soln 2 gm IV Q6H 34 Days Qty: 136 RF: 0 alprazolam 0.5 mg Tablet 0.5 mg PO DAILY Qty: 3 RF: 0 Xarelto 20 mg Tablet 20 mg PO PM Qty: 0 RF: 0 polyethylene glycol 3350 [Miralax] 17 gram/dose Powder 17 g PO DAILY RF: 0 ceftriaxone 2 gram recon soln 2 gm IV Q12 RF: 0 albuterol sulfate 2.5 mg /3 mL (0.083 %) solution for nebulization 2.5 mg NEB Q4H PRN (Reason: Wheezing) RF: 0 acetaminophen [Tylenol] 325 mg Tablet 650 mg PO Q4 PRN (Reason: pain on scale 1-3) RF: 0 potassium chloride 10 mEq Capsule, Extended Release 10 meq PO BID RF: 0 sennosides-docusate sodium [Senokot-S] 8.6-50 mg Tablet 1 tab PO UD PRN (Reason: Constipation) RF: 0 polyethylene glycol 3350 [Miralax] 17 gram/dose Powder 17 g PO UD PRN (Reason: Constipation) RF: 0 Discontinued losartan 100 mg tablet 100 mg PO DAILY Qty: 30 RF: 0 Stand-Alone Forms: [facility] Discharge Orders: Discharge Order (Routine); Ordered 04/03/19 Ordered By: Josemanuel Morris Skilled Items Patient informed of condition?: Yes DNR: No Discharge Level of Care: Acute rehab Communicable Disease: No Discharge Prognosis: Improving Admission Data Admit Date/Time: 03/25/19 05:39 Attending Provider: Toni Jiménez Admit Provider: Junior Ramirez Primary Care Provider: Eduar Villafuerte Other Providers: Katie Leslie ; IRB Approved Study,Judy ; Drea Anaya ; Jose Rabago ; Damian Hirsch Service: Medical Other Interventions: Discharge Summary Assessment (RN) Last Done: 04/03/19 15:19 Pending Studies at Discharge: No DC Date/Time DO NOT enter until pt leaves facility: 04/03/19 15:54 Supervising Physician Co-Signing Physician Notes I personally examined the patient and verified all swan points of history and exam, discussed case, and agree with decision making with Dr Morris. Feels up to going to [facility]. No new complaints. Case signed out to physiatry at rehab. Vitals noted, in general she is awake and alert pleasant no distress. Breathing nasal cannula without distress no accessory muscles. Skin shows no rashes no pallor or icterus. Hypoxiaappearing to be mixed picture between pneumonia and pulmonary edema. Overall improved, continue oral Lasixtitrate down to 60 mg daily now. Follow- up basic metabolic panel every few days. Pneumoniaappears to be aspiration, abx for endocarditis recovering well, will need ongoing speech therapy eval and treat. This suits her ideally for going to rehab. Stable for rehab in this regard Acute pulmonary edema related to acute heart failure with preserved ejection fractionmed management as above, stable for rehab in this regard Anemiaongoing CBC every couple days as well. Resident Activity Tracking Resident Involvement: Resident Care Provided Care Provided: Adult Hospital Medicine
[2019-04-04] MEDS ORDERED: FUROSEMIDE 20 MG TAB PO SCH (09:00)
--- NOTE | 2019-04-06 11:51 | Coding Query ---
CODING QUERY To promote full compliance with coding requirements relating to patient care, provider participation is requested in all cases of recording artist uncertainty. Please assist us with the question(s) below: Coding Question(s): Hypoxemic Respiratory Failure is documented on the Discharge Summary. Please specify below, in your clinical opinion. ( ) Acute Hypoxemic Respiratory Failure ( ) Acute on Chronic Hypoxemic Respiratory Failure ( x ) Chronic Hypoxemic Respiratory Failure Physician's Response(s): Thank you Lita Downey Principal Diagnosis: "that condition established after study, to be chiefly responsible for occasioning the admission of the patient to the hospital for care." Co-Existing Principal Diagnosis: "when two or more diagnoses equally meet the criteria for principal diagnosis as determined by the circumstances of admission, diagnostic work up, and/or therapy provided, and the Alphabetic Index, Tabular List, or another coding guideline does not provide sequencing direction, any one of the diagnoses may be sequenced first." "When the physician has documented what appears to be a current diagnosis in the body of the record, but has not included the diagnosis in the final diagnostic statement, the physician should be asked whether the diagnosis should be added." (Source Coding Clinic 2 QTR90. p3-4) NAMAN
== END 2019-04-03 15:54 | DRG 177 ==
LOC: ED 02:12 → 2S 05:39 → SUATTDRO 05:39 → 2S 06:04 → 4E 04-02 19:31

== ENCOUNTER 2019-04-10 10:35 | Inpatient (IN) ==
[2019-04-10 11:13] LABS: Hematocrit (blood only) 18.4 % (37-47); Hemoglobin 6.2 g/dL (12.0-16.0); Mean Corpuscular Hgb Conc 33.7 g/dL (32-36); Mean Corpuscular Volume 88.9 fL (80-100); Mean Platelet Volume 8.7 fL (7.4-10.4); Platelet Count 223 K/uL (130-400); RDW Coefficient of Variation 19.7 % (11.5-14.5); RDW Standard Deviation 61.6 fL (36.4-46.3); Red Blood Count 2.07 M/uL (4.2-5.4); White Blood Count 5.87 K/uL (4.8-10.8)
[2019-04-10 11:14] LABS: INR 1.2 (0.9-1.1); Partial Thromboplastin Ratio 1.1; Partial Thromboplastin Time 29.1 Seconds (21.0-31.0); Prothrombin Time 11.8 Seconds (9.0-12.0)
[2019-04-10 11:16] LABS: Albumin Level 1.9 gm/dl (3.4-5.0); BUN Creatinine Ratio 20.2 (10-20); Calcium 7.9 mg/dl (8.5-10.1); Creatinine Clr Calc Pharmacy 38.3 ml/min; Est GFR (Non-African American) 64.7; Potassium 3.5 mmol/L (3.5-5.1)
[2019-04-10 11:20] LABS: Albumin Globulin Ratio 0.5 (0.9-2); Bilirubin,Total 0.2 mg/dl (0.2-1); Globulin 3.6 gm/dl (2.5-4.0); Total Protein 5.5 gm/dl (6.4-8.2); Troponin I 0.043 ng/ml (0-0.045)
[2019-04-10] MEDS ORDERED: SODIUM CHLORIDE 0.9% 250 ML IV PRN ×2 (11:32→15:37)
[2019-04-10] MEDS ORDERED: IOVERSOL 100ml IV PRN (12:00)
--- NOTE | 2019-04-10 12:00 | Emergency Department Note ---
Entered by Dyan Trevino acting as a scribe for History of Present Illness General Chief complaint: GI Bleed Stated complaint: dark stool/diarrhea Time Seen by Provider: 04/10/19 10:53 Source: patient Mode of arrival: EMS Limitations: no limitations History of Present Illness Provider complaint: GI bleed Onset (ago): day(s) (1-2 days ago ) Location: buttocks (rectum) Radiation: non-radiation Pain Consistency: + intermittent and + other (worsening) Maximum Pain Intensity: 0 Quality: + other (black diarrhea) Relieved By: + none Associated symptoms: no nausea/vomiting Treatments prior to arrival: none The patient is a 74 year old female with a history of atrial fibrillation, resolved lung cancer, hypertension, CKD, COPD, rheumatoid arthritis, anemia, and anxiety who presents to the Emergency Room with complaints of a worsening GI bleed starting a day or two ago. The patient reports that she has been experiencing intermittent episodes of black diarrhea that have become heavier and heavier. She states that she has never experienced this before, and she notes that she was feeling well prior to yesterday. She denies any nausea and vomiting. She notes, however, that she hurt her back when she fell out of a chair at work a couple of weeks ago and took Tylenol for the pain. The patient reports that she is on Xeralto for atrial fibrillation but has never experienced any blood clots. She notes that her port is from when she was being treated for cancer. Home Medications Home Medications Medication Instructions Recorded Confirmed Type diltiazem HCl 240 mg PO DAILY 12/14/18 04/10/19 History docusate sodium [Colace] 100 mg PO BID 12/14/18 04/10/19 History Lactobacillus acidoph-L.bulgar 4 tab PO TIDM #360 tab 03/21/19 04/10/19 Rx [Floranex] Xarelto 20 mg PO PM #0 tab 03/21/19 04/10/19 Rx ampicillin sodium 2 gm IV Q6H 34 Days #136 ea 03/21/19 04/10/19 Rx nicotine [Nicoderm CQ] 21 mg TRANSDERMAL QAM PRN #7 ea 03/21/19 04/10/19 Rx tramadol 50 mg PO Q4H PRN #18 tab 03/21/19 04/10/19 Rx acetaminophen [Tylenol] 650 mg PO Q4 PRN 03/25/19 04/10/19 History albuterol sulfate 2.5 mg NEB Q4H PRN 03/25/19 04/10/19 History ceftriaxone 2 gm IV Q12 03/25/19 04/10/19 History polyethylene glycol 3350 [Miralax] 17 g PO UD PRN 03/25/19 04/10/19 History potassium chloride 10 meq PO BID 03/25/19 04/10/19 History sennosides-docusate sodium 1 tab PO UD PRN 03/25/19 04/10/19 History [Senokot-S] furosemide 60 mg PO DAILY 15 Days #45 tab 04/03/19 04/10/19 Rx losartan 150 mg PO DAILY 30 Days #90 tab 04/03/19 04/10/19 Rx alprazolam 0.5 mg PO DAILY 04/10/19 04/10/19 History bisacodyl 10 mg VA DAILY PRN 04/10/19 04/10/19 History magnesium hydroxide 30 ml PO DAILY PRN 04/10/19 04/10/19 History sodium phosphates [Fleet Enema] 118 ml VA DAILY PRN 04/10/19 04/10/19 History Allergies Allergy/AdvReac Type Severity Reaction Status Date / Time No Known Allergies Allergy Verified 04/10/19 12:10 Past Med/Surg History Medical History Pleural effusion Pneumonia (Acute) Essential (primary) hypertension Cognitive impairment Chronic kidney disease, stage 3a Septicemia due to enterococcus (Acute) Current smoker (Chronic) Discitis of multiple sites of spine Atrial fibrillation Rheumatoid arthritis Anemia COPD (chronic obstructive pulmonary disease) Lung cancer Mitral regurgitation Surgical History S/P lobectomy of lung LLL, in 09/2017 Family History Father Hypertension Social History Preferred Language: Sinhala Communication Ability: Effective Visual Impairment: No Limitations Hearing Ability: Normal Office Executive Required: No Beliefs That Will Affect Care: None marital status: Current Living Situation: [facility] current occupational status: retired Other Information That Helps Us Care for You: No Feels Safe at Home: Yes Safety Concerns: Feels Safe At This Time Smoking Status: Current every day smoker Tobacco Type: cigarettes Cigarettes Per Day: 10-20 Do You Dip or Chew Tobacco: No Second Hand Exposure: No Tobacco Cessation Education Requested by Patient: No Hx Alcohol Use: No Hx Substance Use: No Review of Systems See HPI for pertinent positives & negatives. and A total of 10 systems reviewed and were otherwise negative Physical Exam Vital Signs Vital Signs - 24 hr 04/10/19 10:46 04/10/19 10:48 04/10/19 10:50 Temperature Temperature Source Sepsis Recent Fever Within 48 Hours Sepsis New/Unexplained Change in Mental Status Sepsis Action Taken by Nursing Pulse Rate 104 H 108 H 101 H Pulse Rate [Apical] Pulse Rate from SpO2 Sensor 104 H 86 84 Pulse Rhythm Pulse Rhythm [Apical] Pulse Strength Respiratory Rate 19 18 17 Respiratory Effort / Characteristics Respiratory Depth Respiratory Pattern Blood Pressure 150/70 H Blood Pressure [Right Arm] Blood Pressure Mean 96 Blood Pressure Mean [Right Arm] Blood Pressure Position Blood Pressure Position [Right Arm] Pulse Oximetry 92 90 91 Oxygen Delivery Method Oxygen Flow Rate 04/10/19 10:52 04/10/19 11:00 04/10/19 11:01 Temperature Temperature Source Oral Sepsis Recent Fever Within 48 Hours No Sepsis New/Unexplained Change in Mental Status No Sepsis Action Taken by Nursing No Action Required Pulse Rate 108 H 105 H 107 H Pulse Rate [Apical] Pulse Rate from SpO2 Sensor 53 L 53 L Pulse Rhythm Pulse Rhythm [Apical] Pulse Strength Respiratory Rate 18 5 L 1 L Respiratory Effort / Characteristics Non-Labored Respiratory Depth Normal Respiratory Pattern Regular Blood Pressure 150/70 H 147/41 H Blood Pressure [Right Arm] Blood Pressure Mean 96 76 Blood Pressure Mean [Right Arm] Blood Pressure Position Blood Pressure Position [Right Arm] Pulse Oximetry 93 93 91 Oxygen Delivery Method Room Air Oxygen Flow Rate 04/10/19 11:10 04/10/19 11:15 04/10/19 11:20 Temperature Temperature Source Sepsis Recent Fever Within 48 Hours Sepsis New/Unexplained Change in Mental Status Sepsis Action Taken by Nursing Pulse Rate 104 H 110 H 103 H Pulse Rate [Apical] Pulse Rate from SpO2 Sensor 95 H Pulse Rhythm Pulse Rhythm [Apical] Pulse Strength Respiratory Rate 3 L 29 H 22 Respiratory Effort / Characteristics Respiratory Depth Respiratory Pattern Blood Pressure Blood Pressure [Right Arm] Blood Pressure Mean Blood Pressure Mean [Right Arm] Blood Pressure Position Blood Pressure Position [Right Arm] Pulse Oximetry 90 90 Oxygen Delivery Method Oxygen Flow Rate 04/10/19 11:30 04/10/19 11:31 04/10/19 11:40 Temperature Temperature Source Sepsis Recent Fever Within 48 Hours Sepsis New/Unexplained Change in Mental Status Sepsis Action Taken by Nursing Pulse Rate 90 89 107 H Pulse Rate [Apical] Pulse Rate from SpO2 Sensor 90 89 54 L Pulse Rhythm Pulse Rhythm [Apical] Pulse Strength Respiratory Rate 22 22 22 Respiratory Effort / Characteristics Respiratory Depth Respiratory Pattern Blood Pressure 123/42 L Blood Pressure [Right Arm] Blood Pressure Mean 69 Blood Pressure Mean [Right Arm] Blood Pressure Position Blood Pressure Position [Right Arm] Pulse Oximetry 93 95 89 L Oxygen Delivery Method Oxygen Flow Rate 04/10/19 11:45 04/10/19 11:50 04/10/19 12:05 Temperature Temperature Source Sepsis Recent Fever Within 48 Hours Sepsis New/Unexplained Change in Mental Status Sepsis Action Taken by Nursing Pulse Rate 108 H 89 93 H Pulse Rate [Apical] Pulse Rate from SpO2 Sensor 88 85 Pulse Rhythm Pulse Rhythm [Apical] Pulse Strength Respiratory Rate 25 H 15 19 Respiratory Effort / Characteristics Respiratory Depth Respiratory Pattern Blood Pressure Blood Pressure [Right Arm] Blood Pressure Mean Blood Pressure Mean [Right Arm] Blood Pressure Position Blood Pressure Position [Right Arm] Pulse Oximetry 91 99 93 Oxygen Delivery Method Oxygen Flow Rate 04/10/19 12:10 04/10/19 12:11 04/10/19 12:15 Temperature 36.6 C Temperature Source Oral Sepsis Recent Fever Within 48 Hours Sepsis New/Unexplained Change in Mental Status Sepsis Action Taken by Nursing Pulse Rate 83 77 90 Pulse Rate [Apical] Pulse Rate from SpO2 Sensor 82 85 Pulse Rhythm Regular Pulse Rhythm [Apical] Pulse Strength Normal Respiratory Rate 17 20 16 Respiratory Effort / Characteristics Respiratory Depth Respiratory Pattern Blood Pressure 124/38 L Blood Pressure [Right Arm] Blood Pressure Mean 66 Blood Pressure Mean [Right Arm] Blood Pressure Position Lying Blood Pressure Position [Right Arm] Pulse Oximetry 95 92 71 L Oxygen Delivery Method Oxygen Flow Rate 2 04/10/19 12:16 04/10/19 12:20 04/10/19 12:24 Temperature 36.6 C Temperature Source Oral Sepsis Recent Fever Within 48 Hours Sepsis New/Unexplained Change in Mental Status Sepsis Action Taken by Nursing Pulse Rate 87 86 96 H Pulse Rate [Apical] 96 H Pulse Rate from SpO2 Sensor 95 H 96 H Pulse Rhythm Irregular Pulse Rhythm [Apical] Irregular Pulse Strength Respiratory Rate 21 19 18 Respiratory Effort / Characteristics Non-Labored Respiratory Depth Normal Respiratory Pattern Regular Blood Pressure 127/58 L Blood Pressure [Right Arm] 127/58 L Blood Pressure Mean 81 Blood Pressure Mean [Right Arm] 81 Blood Pressure Position Blood Pressure Position [Right Arm] Lying Pulse Oximetry 97 95 92 Oxygen Delivery Method Nasal Cannula Oxygen Flow Rate 04/10/19 12:26 04/10/19 12:30 04/10/19 12:31 Temperature 36.6 C Temperature Source Oral Sepsis Recent Fever Within 48 Hours Sepsis New/Unexplained Change in Mental Status Sepsis Action Taken by Nursing Pulse Rate 107 H 98 H 95 H Pulse Rate [Apical] Pulse Rate from SpO2 Sensor 96 H 95 H Pulse Rhythm Regular Pulse Rhythm [Apical] Pulse Strength Normal Respiratory Rate 18 20 19 Respiratory Effort / Characteristics Respiratory Depth Respiratory Pattern Blood Pressure 127/58 L 157/73 H Blood Pressure [Right Arm] Blood Pressure Mean 81 101 Blood Pressure Mean [Right Arm] Blood Pressure Position Lying Blood Pressure Position [Right Arm] Pulse Oximetry 97 97 100 Oxygen Delivery Method Oxygen Flow Rate 2 04/10/19 12:40 04/10/19 12:45 04/10/19 12:46 Temperature 36.6 C Temperature Source Oral Sepsis Recent Fever Within 48 Hours Sepsis New/Unexplained Change in Mental Status Sepsis Action Taken by Nursing Pulse Rate 93 H 92 H 96 H Pulse Rate [Apical] Pulse Rate from SpO2 Sensor 100 H Pulse Rhythm Pulse Rhythm [Apical] Pulse Strength Respiratory Rate 23 20 19 Respiratory Effort / Characteristics Non-Labored Spontaneous Respiratory Depth Normal Respiratory Pattern Blood Pressure 158/47 H 158/47 H Blood Pressure [Right Arm] Blood Pressure Mean 84 84 Blood Pressure Mean [Right Arm] Blood Pressure Position Blood Pressure Position [Right Arm] Pulse Oximetry 94 Oxygen Delivery Method Nasal Cannula Oxygen Flow Rate 2 04/10/19 12:50 04/10/19 13:00 04/10/19 13:01 Temperature Temperature Source Sepsis Recent Fever Within 48 Hours Sepsis New/Unexplained Change in Mental Status Sepsis Action Taken by Nursing Pulse Rate 104 H 94 H 96 H Pulse Rate [Apical] Pulse Rate from SpO2 Sensor 92 H 93 H 95 H Pulse Rhythm Pulse Rhythm [Apical] Pulse Strength Respiratory Rate 21 21 19 Respiratory Effort / Characteristics Respiratory Depth Respiratory Pattern Blood Pressure 148/56 H Blood Pressure [Right Arm] Blood Pressure Mean 86 Blood Pressure Mean [Right Arm] Blood Pressure Position Blood Pressure Position [Right Arm] Pulse Oximetry 94 96 Oxygen Delivery Method Oxygen Flow Rate 04/10/19 13:10 04/10/19 13:15 04/10/19 13:16 Temperature Temperature Source Sepsis Recent Fever Within 48 Hours Sepsis New/Unexplained Change in Mental Status Sepsis Action Taken by Nursing Pulse Rate 105 H 105 H 102 H Pulse Rate [Apical] Pulse Rate from SpO2 Sensor 104 H 51 L Pulse Rhythm Pulse Rhythm [Apical] Pulse Strength Respiratory Rate 18 17 9 L Respiratory Effort / Characteristics Respiratory Depth Respiratory Pattern Blood Pressure 168/43 H Blood Pressure [Right Arm] Blood Pressure Mean 84 Blood Pressure Mean [Right Arm] Blood Pressure Position Blood Pressure Position [Right Arm] Pulse Oximetry 95 92 95 Oxygen Delivery Method Oxygen Flow Rate 04/10/19 13:20 04/10/19 13:30 04/10/19 13:31 Temperature Temperature Source Sepsis Recent Fever Within 48 Hours Sepsis New/Unexplained Change in Mental Status Sepsis Action Taken by Nursing Pulse Rate 104 H 83 95 H Pulse Rate [Apical] Pulse Rate from SpO2 Sensor 69 87 92 H Pulse Rhythm Pulse Rhythm [Apical] Pulse Strength Respiratory Rate 9 L 12 13 Respiratory Effort / Characteristics Respiratory Depth Respiratory Pattern Blood Pressure 154/75 H Blood Pressure [Right Arm] Blood Pressure Mean 101 Blood Pressure Mean [Right Arm] Blood Pressure Position Blood Pressure Position [Right Arm] Pulse Oximetry 99 99 Oxygen Delivery Method Oxygen Flow Rate 04/10/19 13:40 04/10/19 13:45 04/10/19 13:46 Temperature Temperature Source Sepsis Recent Fever Within 48 Hours Sepsis New/Unexplained Change in Mental Status Sepsis Action Taken by Nursing Pulse Rate 85 81 82 Pulse Rate [Apical] Pulse Rate from SpO2 Sensor 82 84 Pulse Rhythm Pulse Rhythm [Apical] Pulse Strength Respiratory Rate 18 16 21 Respiratory Effort / Characteristics Respiratory Depth Respiratory Pattern Blood Pressure 142/61 H Blood Pressure [Right Arm] Blood Pressure Mean 88 Blood Pressure Mean [Right Arm] Blood Pressure Position Blood Pressure Position [Right Arm] Pulse Oximetry 99 98 Oxygen Delivery Method Oxygen Flow Rate GENERAL: Awake, alert, fatigued-appearing, in no distress HENT: Normocephalic, atraumatic. Oropharynx with dry mucous membranes and otherwise unremarkable. EYES: Normal conjunctiva. Sclera non-icteric. NECK: Supple. No nuchal rigidity. FROM. No JVD. RESPIRATORY: CTAB. CARDIAC: Regular rate, normal rhythm. Extremities warm and well perfused. Pulses equal. ABDOMEN: Soft, non-distended. No tenderness to palpation. No rebound or guarding. No masses. RECTAL: Melena, guaiac positive. MUSCULOSKELETAL: Chest examination reveals no tenderness. The back is symmetrical on inspection without obvious abnormality. There is no CVA tenderness to palpation. No joint edema. LOWER EXTREMITIES: Calves are equal size bilaterally and non-tender. No edema. No discoloration. NEURO: Normal sensorium. No sensory or motor deficits noted. SKIN: Pale. No rash or jaundice noted. Course 1111: The patient was evaluated in room C9, and a complete history and physical examination were performed. 1221: I reviewed the patient's case with Dr. Tracie Mendez, [place]. Dr. Hodges will evaluate the patient for further management. Consultations Consultation #1: I reviewed the patient's case with Dr. Tracie Mendez, [place]. Dr. Hodges will evaluate the patient for further management. Time: 12:21 Administered Medications Ioversol (Optiray 320 100ml) 95 ml IV ONCE PRN PRN Reason: Interaction Checking Stop: 04/14/19 11:59 Last Admin: 04/10/19 12:00 Dose: 95 ml Documented by: [id number] Discontinued Medications Pantoprazole Sodium 40 mg/ (Syringe) 10 mls @ 5 mls/min IV ONE ONE Stop: 04/10/19 12:46 Last Admin: 04/10/19 13:35 Dose: 5 mls/min Documented by: [id number] Medical Decision Making Differential Diagnosis Differential diagnosis: Etiologies such as diverticulosis, AVM, coagulopathy, colitis, inflammatory monica wel disease, malignancy, Rhonda-Peterson tear, esophagitis, peptic ulcer disease, variceal bleed, gastritis, epistaxis, fissure, hemorrhoids, as well as others were entertained. Medical Records Attestation: I reviewed the patient's medical records. Home Medications Current Medication List: was personally reviewed by me Laboratory Data Attestation: I reviewed the patient's lab results. Result diagrams: 04/10/19 10:47 04/10/19 10:47 Lab Results 04/10/19 04/10/19 04/10/19 Range/Units 10:47 10:47 10:47 WBC 5.87 (4.8-10.8) K/uL RBC 2.07 L (4.2-5.4) M/uL Hgb 6.2 L* (12.0-16.0) g/dL Hct 18.4 L* (37-47) % MCV 88.9 (80-100) fL MCH 30.0 (25-34) pg MCHC 33.7 (32-36) g/dL RDW Std Deviation 61.6 H (36.4-46.3) fL RDW Coeff of Jose 19.7 H (11.5-14.5) % Plt Count 223 (130-400) K/uL MPV 8.7 (7.4-10.4) fL PT 11.8 (9.0-12.0) Seconds INR 1.2 H (0.9-1.1) APTT 29.1 (21.0-31.0) Seconds PTT Ratio 1.1 Sodium (136-145) mmol/L Potassium (3.5-5.1) mmol/L Chloride (98-107) mmol/L Carbon Dioxide (21-32) mmol/L Anion Gap (3-11) BUN (7-18) mg/dl Creatinine (0.6-1.2) mg/dl Est Cr Clr Drug Dosing ml/min Est GFR ( Amer) Est GFR (Non-Af Amer) BUN/Creatinine Ratio (10-20) Glucose (70-99) mg/dl Calcium (8.5-10.1) mg/dl Total Bilirubin (0.2-1) mg/dl AST (15-37) U/L ALT (12-78) U/L Alkaline Phosphatase (45-117) U/L Troponin I (0-0.045) ng/ml Total Protein (6.4-8.2) gm/dl Albumin (3.4-5.0) gm/dl Globulin (2.5-4.0) gm/dl Albumin/Globulin Ratio (0.9-2) Blood Type A Positive Antibody Screen NEGATIVE Crossmatch See Detail 04/10/19 Range/Units 10:47 WBC (4.8-10.8) K/uL RBC (4.2-5.4) M/uL Hgb (12.0-16.0) g/dL Hct (37-47) % MCV (80-100) fL MCH (25-34) pg MCHC (32-36) g/dL RDW Std Deviation (36.4-46.3) fL RDW Coeff of Jose (11.5-14.5) % Plt Count (130-400) K/uL MPV (7.4-10.4) fL PT (9.0-12.0) Seconds INR (0.9-1.1) APTT (21.0-31.0) Seconds PTT Ratio Sodium 141 (136-145) mmol/L Potassium 3.5 (3.5-5.1) mmol/L Chloride 108 H (98-107) mmol/L Carbon Dioxide 25 (21-32) mmol/L Anion Gap 8.0 (3-11) BUN 18 (7-18) mg/dl Creatinine 0.88 (0.6-1.2) mg/dl Est Cr Clr Drug Dosing 38.3 ml/min Est GFR ( Amer) 75.0 Est GFR (Non-Af Amer) 64.7 BUN/Creatinine Ratio 20.2 H (10-20) Glucose 91 (70-99) mg/dl Calcium 7.9 L (8.5-10.1) mg/dl Total Bilirubin 0.2 (0.2-1) mg/dl AST 13 L (15-37) U/L ALT 29 (12-78) U/L Alkaline Phosphatase 232 H (45-117) U/L Troponin I 0.043 (0-0.045) ng/ml Total Protein 5.5 L (6.4-8.2) gm/dl Albumin 1.9 L (3.4-5.0) gm/dl Globulin 3.6 (2.5-4.0) gm/dl Albumin/Globulin Ratio 0.5 L (0.9-2) Blood Type Antibody Screen Crossmatch Imaging Data Radiologist's Impression: Radiology results as stated below per my review and the radiologist's interpretation: ABDOMEN AND PELVIS CT WITH IV CONTRAST CT DOSE: 241.37 mGy.cm HISTORY: Analyzed abd pain melena TECHNIQUE: Multiaxial CT images of the abdomen and pelvis were performed following the use of intravenous contrast. A dose lowering technique was utilized adhering to the principles of ALARA. COMPARISON STUDY: Abdomen and pelvis CT 03/14/2019. FINDINGS: Small bilateral pleural effusions persist. Patchy bibasilar densities have improved. No pneumoperitoneum. No pneumatosis. Redemonstration of the T12- L1 and L3-L4 discitis/osteomyelitis with surrounding paravertebral edema. This is also not significantly changed. The liver, spleen, adrenal glands, and pancreas are unremarkable. No hydronephrosis. A few subcentimeter hypodense lesions within the kidneys are technically too small to characterize. Calcified plaque within the normal caliber abdominal aorta. A few borderline enlarged left periaortic lymph nodes remain unchanged. The gallbladder is filled with sludge and small stones. No gallbladder wall thickening. Trace pericholecystic fluid is noted. The common bile duct is normal in caliber. The main portal vein is patent. Gas within the bladder lumen has improved. The uterus and bilateral adnexa are unremarkable. The distal colon is decompressed. No bowel wall thickening or obstruction. Normal appendix. IMPRESSION: 1. The gallbladder is filled with sludge and a few small stones. No gallbladder wall thickening. However, there is pericholecystic fluid. This could be due to a diffuse edematous state or developing acute cholecystitis. Follow-up HIDA scan or ultrasound recommended as well as clinical correlation. 2. Small bilateral pleural effusions. 3. Patchy bibasilar airspace opacities have improved. 4. No bowel wall thickening or obstruction. 5. Normal appendix. 6. No change in the T11-T12 and L3-L4 discitis/osteomyelitis. Electronically signed by: Juwan Lozano M.D. 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 On arrival the patient is fatigued and pale appearing but in NAD, AFVSS. Abdomen is benign. Rectal exam demonstrates melena that is guaiac positive. EKG without overt acute ischemia. WBC wnl. H/H 6.2/18.4 down from 9.8/30.4 on 04/03. Platelets wnl. Chemistry without acidosis. BUN 18. Alk phos 232 and otherwise LFTs unremarkable. Patient was consented and ordered to for 2 units PRBCs. Protonix 40mg IV push x [address] abd/pelvis demonstrates cholelithiasis with sludge and small stones as well as pericholecystici fluid. However, there is no gallbladder wall thickening and patient's exam and presentation is not c/w cholecystitis at this time. Case d/w Dr. Hodges, [facility] hospitalist, who will evaluate the patient for admission. Impression & Plan Acute GI bleeding, Melena, Severe anemia Critical Care Time I have personally spent greater than 70 minutes of critical care time in the direct management of this patient. This includes bedside care, interpretation of diagnostic studies, and testing, discussion with consultants, patient, and family members, and other required patient management activities. This 70 minutes is in excess of all separately billable procedures. Critical Care Time: Yes Total Critical Care Time: 70 Discharge Plan Visit Data *Final* Discharge Date/Time: 04/10/19 15:00 Chief Complaint: GI Bleed Stated Complaint: dark stool/diarrhea ED Provider: Clayton Napier Discharge Problem: Acute GI bleeding, Melena, Severe anemia Patient Disposition: Admitted As Inpatient Discharge Instructions Interventions: ED Discharge Assessment Last Done: 04/10/19 15:00 The scribe's documentation has been prepared under my direction and personally reviewed by me in its entirety. I confirm that the note above accurately reflects all work, treatment, procedures, and medical decision making performed by me.
--- NOTE | 2019-04-10 12:20 | CT Scan Report ---
ABDOMEN AND PELVIS CT WITH IV CONTRAST CT DOSE: 241.37 mGy.cm HISTORY: Analyzed abd pain melena TECHNIQUE: Multiaxial CT images of the abdomen and pelvis were performed following the use of intrave nous contrast. A dose lowering technique was utilized adhering to the principles of ALARA. COMPARISON STUDY: Abdomen and pelvis CT 03/14/2019. FINDINGS: Small bilateral pleural effusions persist. Patchy bibasilar densities have improved. No pne umoperitoneum. No pneumatosis. Redemonstration of the T12-L1 and L3-L4 discitis/osteomyelitis with iraheta rrounding paravertebral edema. This is also not significantly changed. The liver, spleen, adrenal gla nds, and pancreas are unremarkable. No hydronephrosis. A few subcentimeter hypodense lesions within t he kidneys are technically too small to characterize. Calcified plaque within the normal caliber abdo kalen aorta. A few borderline enlarged left periaortic lymph nodes remain unchanged. The gallbladder is filled with sludge and small stones. No gallbladder wall thickening. Trace pericholecystic fluid i s noted. The common bile duct is normal in caliber. The main portal vein is patent. Gas within the bl adder lumen has improved. The uterus and bilateral adnexa are unremarkable. The distal colon is decom pressed. No bowel wall thickening or obstruction. Normal appendix. IMPRESSION: 1. The gallbladder is filled with sludge and a few small stones. No gallbladder wall thickening. Jackson ignacio, there is pericholecystic fluid. This could be due to a diffuse edematous state or developing acu te cholecystitis. Follow-up HIDA scan or ultrasound recommended as well as clinical correlation. 2. Small bilateral pleural effusions. 3. Patchy bibasilar airspace opacities have improved. 4. No bowel wall thickening or obstruction. 5. Normal appendix. 6. No change in the T11-T12 and L3-L4 discitis/osteomyelitis. Electronically signed by: Juwan Lozano M.D. 04/10/2019 12:18 PM
[2019-04-10] MEDS ORDERED: PANTOprazole 40 MG in SYRINGE 0 ML IV ONE (12:45)
--- NOTE | 2019-04-10 13:50 | History & Physical Report ---
Date of Service April 10, 2019 Assessment & Plan (1) Severe anemia: 74-year-old female with PMH infective endocarditis, left lung cancer, RA, PAF on xarelto, smoker, HTN, discitis who was brought to the emergency department by EMS from [facility] due to melena early this morning. Of no te, the patient was an inpatient from March 10 to March 21 for infective endocarditis amongst other issues. She was discharged to [facility]. She was then readmitted 10May - 19May for hypoxemic respiratory failure and was noted to have anemia then and plan for EGD to be done once endocarditis treatment completed on April 24. CT a/p notable for GB sludge with small stones, improving airspace opacities in lower lungs, no bowel wall thickening or obstruction, no change in T11-T12/L3-L4 discitis. #Acute blood loss anemia 2/2 GIB while on NOAC -Hgb/Hct on presentation was noted to be 6.2/18.4, and stool guaiac positive. Down from 9.8/30.4. -will continue essential PO meds for rate control and blood pressure and anxiety, as below -h/o chronic anemia -- iron deficient, hemoccult noted to be positive during previous admission 06May, status post multiple transfusions and venofer --historically, uppper/lower endoscopy delayed due to endocarditis. -HOLD xarelto -receiving 2 units PRBCs in ED, and one bolus of protonix IV -add one time dose Lasix IV 40mg given fragile cardiac picture due to vegetations on AV and MV, seems to get fluid overloaded quickly in past admissions despite normal EF. -continue IV protonix 40mg IV BID #Acute on chronic hypoxic respiratory failure -In the setting of acute blood loss anemia - Mild hypoxia noted, nasal cannula applied and is 98% on 2L. -O2 as needed #Elevated alk phos -unclear etiology - AST/ALT wnl, no acute abdominal pain however CT a/p notable for GB sludge with small stones -will check GGT to differentiate bone v hepatobiliary origin #Recent multiple hospital admissions -Nov -collapsed left upper lobe from mucoid impaction, s/p bronchoschopy, tx with levaquin for CAP. Fe studies c/w iron def anemia, ferrous sulfate begun, b12/folate wnl. -February - found to have vegetation on mitral and aortic valves as well as discitis osteomyelitis T11-T12/L3-L4 likely 2/2 falls/fractures. Nidus: Port removed, it was infected. Begin treatment for infective endocarditis, to be finished April 24. - peripheral smear 18Apr suggests possible myelodisplasia, hematology consulted and iron begun. Studies suggested iron def. - endoscopy lower/upper delayed due to bact endocarditis. Did receive multiple units transfused during this month, both inpt and outpt. #Infective endocarditis /vegetations on mitral and aortic valve -Continue ampicillin and Rocephin IV through April 24. -30 march TTE notable for mild LVH, EF 55 to 60%, stable in size/mobile 0.7 cm mass on posterior leaflet of mitral valve, moderate MR, mass on aortic valve. MR slightly worse compared to previous. -Predisposes her to congestive heart failure, cautious with fluids. Being given IV Lasix during transfusion as above. #Atrial fibrillation -Continues diltiazem -rate is controlled, however per nursing with activity her rate does get up into the 150s. Resolves with rest. Follow. -Xarelto held due to GI bleed as above FEN/GI: 2 units PRBCs, Lasix daily, n.p.o. with sips. Cautious with fluids. DVT ppx: Chemical contraindicated in state of acute blood loss anemia CODE STATUS: DNR/DNI as confirmed with patient DISPO: Telemetry. Resides at [facility], PT/OT, will likely return. Other ongoing medical problems: #H/o lung cancer - in remission - S/p LLL lobectomy in 09/2017 and 4 rounds of chemo per the patient. No sign of recurrence on the CTA chest on 12/14. #COPD/tobacco abuse -historically intolerant of inhalers -Nebs as needed #Anxiety -Continue home Xanax 0.5 mg daily #Hypertension -continue home losartan 150 mg daily #Cognitive defect -Reorientation (2) Melena: (3) Discitis, unspecified, multiple sites in spine: (4) Anxiety: (5) Paroxysmal atrial fibrillation: (6) Hypertension: (7) History of lung cancer: (8) Poor venous access: (9) Chronic kidney disease, stage 3a: (10) Mitral regurgitation: (11) Current smoker: (12) COPD (chronic obstructive pulmonary disease): (13) Discitis of multiple sites of spine: (14) Infective endocarditis: (15) Rheumatoid arthritis: History of Present Illness 74-year-old female with PMH infective endocarditis, left lung cancer, RA, PAF on xarelto, smoker, HTN, discitis who was brought to the emergency department by EMS from [facility] due to melena early this morning. Of note, the patient was an inpatient from March 10 to March 21 for infective endocarditis amongst other issues. She was discharged to [facility]. She was then readmitted 10May - 19May for hypoxemic respiratory failure and was noted to have anemia then and plan for EGD to be done once endocarditis treatment completed on April 24. ED Course: Hgb/Hct on presentation was noted to be 6.2/18.4, and stool guaiac positive. She is currently receiving 2 units PRBCs in ED, and one bolus of protonix IV. Mild hypoxia noted, nasal cannula applied and is 98% on 2L. Other notable labs include: elevated alk phos 232. CT a/p notable for GB sludge with small stones, improving airspace opacities in lower lungs, no bowel wall thickening or obstruction, no change in T11-T12/L3-L4 discitis. --- Past medical history includes left lung cancer, rheumatoid arthritis, paroxysmal atrial fibrillation, smoker, hypertension, spinal discitis. --- Past surgical history includes left lower lobe lobectomy in 2017. --- Social history includes current smoker of up to 1 pack/day. Denies alcohol use. Usually lives at home alone. Currently residing at [facility]. Primary Care Provider: [facility] Allergies Allergy/AdvReac Type Severity Reaction Status Date / Time No Known Allergies Allergy Verified 04/10/19 12:10 Home Medications Home Medications Medication Instructions Recorded Confirmed Type diltiazem HCl 240 mg PO DAILY 12/14/18 04/10/19 History docusate sodium [Colace] 100 mg PO BID 12/14/18 04/10/19 History Lactobacillus acidoph-L.bulgar 4 tab PO TIDM #360 tab 03/21/19 04/10/19 Rx [Floranex] Xarelto 20 mg PO PM #0 tab 03/21/19 04/10/19 Rx ampicillin sodium 2 gm IV Q6H 34 Days #136 ea 03/21/19 04/10/19 Rx nicotine [Nicoderm CQ] 21 mg TRANSDERMAL QAM PRN #7 ea 03/21/19 04/10/19 Rx tramadol 50 mg PO Q4H PRN #18 tab 03/21/19 04/10/19 Rx acetaminophen [Tylenol] 650 mg PO Q4 PRN 03/25/19 04/10/19 History albuterol sulfate 2.5 mg NEB Q4H PRN 03/25/19 04/10/19 History ceftriaxone 2 gm IV Q12 03/25/19 04/10/19 History polyethylene glycol 3350 [Miralax] 17 g PO UD PRN 03/25/19 04/10/19 History potassium chloride 10 meq PO BID 03/25/19 04/10/19 History sennosides-docusate sodium 1 tab PO UD PRN 03/25/19 04/10/19 History [Senokot-S] furosemide 60 mg PO DAILY 15 Days #45 tab 04/03/19 04/10/19 Rx losartan 150 mg PO DAILY 30 Days #90 tab 04/03/19 04/10/19 Rx alprazolam 0.5 mg PO DAILY 04/10/19 04/10/19 History bisacodyl 10 mg VA DAILY PRN 04/10/19 04/10/19 History magnesium hydroxide 30 ml PO DAILY PRN 04/10/19 04/10/19 History sodium phosphates [Fleet Enema] 118 ml VA DAILY PRN 04/10/19 04/10/19 History Past Med/Surg History Medical History Pleural effusion Pneumonia (Acute) Essential (primary) hypertension Cognitive impairment Chronic kidney disease, stage 3a Septicemia due to enterococcus (Acute) Current smoker (Chronic) Discitis of multiple sites of spine Atrial fibrillation Rheumatoid arthritis Anemia COPD (chronic obstructive pulmonary disease) Lung cancer Mitral regurgitation Surgical History S/P lobectomy of lung LLL, in 09/2017 Family History Father Hypertension Social History Preferred Language: [place] Communication Ability: Effective Visual Impairment: No Limitations Hearing Ability: Normal 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 Beliefs That Will Affect Care: None marital status: Current Living Situation[facility] current occupational status: retired Other Information That Helps Us Care for You: No Feels Safe at Home: Yes Safety Concerns: Feels Safe At This Time Smoking Status: Current every day smoker Tobacco Type: cigarettes Cigarettes Per Day: 10-20 Do You Dip or Chew Tobacco: No Second Hand Exposure: No Tobacco Cessation Education Requested by Patient: No Hx Alcohol Use: No Hx Substance Use: No Review of Systems Review of Systems: All systems reviewed & are unremarkable except as noted in HPI & below Physical Exam Physical Exam: Vitals noted as above and within normal limits with the exception of hypertension. GENERAL: Awake, alert, nontoxic-appearing, in no distress. + pallor HENT: Normocephalic, atraumatic. Nasal cannula in place. Mucus membranes appear moist. EYES: Normal conjunctiva. Sclera non-icteric. EOMI. NECK: Supple. Full range of motion. RESPIRATORY: Clear to auscultation. Normal work of breathing. CHEST: + vascular access device or port (right anterior chest wall, in tact ) CARDIAC: Regular rate, normal rhythm. No murmurs rubs or gallops. ABDOMEN: Soft, non-distended. No tenderness to palpation in all four quadrants. No rebound or guarding. No masses. Bowel sounds are normal. NEURO: No focal gross focal motor deficits noted. Sensation in tact. CN II-XII grossly in tact. SKIN: Rash not present. No jaundice noted. Significant lesions not present. PSYCH: Appropriate mood and affect. Cooperative. Exam as done by Lucero Banks MD, [employer]. Results & Data Vital Signs (Past 12 Hours) Vital Signs Temp Pulse Pulse Resp BP BP Pulse Ox 04/10/19 12:50 104 H 21 04/10/19 12:46 96 H 19 158/47 H 94 04/10/19 12:45 36.6 C 92 H 20 158/47 H 04/10/19 12:40 93 H 23 04/10/19 12:31 95 H 19 157/73 H 100 04/10/19 12:30 98 H 20 97 04/10/19 12:26 36.6 C 107 H 18 127/58 L 97 04/10/19 12:24 36.6 C 96 H 96 H 18 127/58 L 92 04/10/19 12:20 86 19 95 04/10/19 12:16 87 21 127/58 L 97 04/10/19 12:15 90 16 71 L 04/10/19 12:11 77 20 92 04/10/19 12:10 36.6 C 83 17 124/38 L 95 04/10/19 12:05 93 H 19 93 04/10/19 11:50 89 15 99 04/10/19 11:45 108 H 25 H 91 04/10/19 11:40 107 H 22 89 L 04/10/19 11:31 89 22 123/42 L 95 04/10/19 11:30 90 22 93 04/10/19 11:20 103 H 22 04/10/19 11:15 110 H 29 H 90 04/10/19 11:10 104 H 3 L 90 04/10/19 11:01 107 H 1 L 147/41 H 91 04/10/19 11:00 105 H 5 L 93 04/10/19 10:52 108 H 18 150/70 H 93 04/10/19 10:50 101 H 17 91 04/10/19 10:48 108 H 18 90 04/10/19 10:46 104 H 19 150/70 H 92 Laboratory Results 04/10/19 04/10/19 04/10/19 Range/Units 10:47 10:47 10:47 WBC 5.87 (4.8-10.8) K/uL RBC 2.07 L (4.2-5.4) M/uL Hgb 6.2 L* (12.0-16.0) g/dL Hct 18.4 L* (37-47) % MCV 88.9 (80-100) fL MCH 30.0 (25-34) pg MCHC 33.7 (32-36) g/dL RDW Std Deviation 61.6 H (36.4-46.3) fL RDW Coeff of Jose 19.7 H (11.5-14.5) % Plt Count 223 (130-400) K/uL MPV 8.7 (7.4-10.4) fL PT 11.8 (9.0-12.0) Seconds INR 1.2 H (0.9-1.1) APTT 29.1 (21.0-31.0) Seconds PTT Ratio 1.1 Sodium 141 (136-145) mmol/L Potassium 3.5 (3.5-5.1) mmol/L Chloride 108 H (98-107) mmol/L Carbon Dioxide 25 (21-32) mmol/L Anion Gap 8.0 (3-11) BUN 18 (7-18) mg/dl Creatinine 0.88 (0.6-1.2) mg/dl Est Cr Clr Drug Dosing 38.3 ml/min Est GFR ( Amer) 75.0 Est GFR (Non-Af Amer) 64.7 BUN/Creatinine Ratio 20.2 H (10-20) Glucose 91 (70-99) mg/dl Calcium 7.9 L (8.5-10.1) mg/dl Total Bilirubin 0.2 (0.2-1) mg/dl AST 13 L (15-37) U/L ALT 29 (12-78) U/L Alkaline Phosphatase 232 H (45-117) U/L Troponin I 0.043 (0-0.045) ng/ml Total Protein 5.5 L (6.4-8.2) gm/dl Albumin 1.9 L (3.4-5.0) gm/dl Globulin 3.6 (2.5-4.0) gm/dl Albumin/Globulin Ratio 0.5 L (0.9-2) Blood Type Antibody Screen Crossmatch 04/10/19 Range/Units 10:47 WBC (4.8-10.8) K/uL RBC (4.2-5.4) M/uL Hgb (12.0-16.0) g/dL Hct (37-47) % MCV (80-100) fL MCH (25-34) pg MCHC (32-36) g/dL RDW Std Deviation (36.4-46.3) fL RDW Coeff of Jose (11.5-14.5) % Plt Count (130-400) K/uL MPV (7.4-10.4) fL PT (9.0-12.0) Seconds INR (0.9-1.1) APTT (21.0-31.0) Seconds PTT Ratio Sodium (136-145) mmol/L Potassium (3.5-5.1) mmol/L Chloride (98-107) mmol/L Carbon Dioxide (21-32) mmol/L Anion Gap (3-11) BUN (7-18) mg/dl Creatinine (0.6-1.2) mg/dl Est Cr Clr Drug Dosing ml/min Est GFR ( Amer) Est GFR (Non-Af Amer) BUN/Creatinine Ratio (10-20) Glucose (70-99) mg/dl Calcium (8.5-10.1) mg/dl Total Bilirubin (0.2-1) mg/dl AST (15-37) U/L ALT (12-78) U/L Alkaline Phosphatase (45-117) U/L Troponin I (0-0.045) ng/ml Total Protein (6.4-8.2) gm/dl Albumin (3.4-5.0) gm/dl Globulin (2.5-4.0) gm/dl Albumin/Globulin Ratio (0.9-2) Blood Type A Positive Antibody Screen NEGATIVE Crossmatch See Detail Medications Administered Current Inpatient Medications Sodium Chloride (Nss) 250 mls @ 15 mls/hr IV .[id number] PRN PRN Reason: For Transfusion Stop: 05/10/19 11:31 Ioversol (Optiray 320 100ml) 95 ml IV ONCE PRN PRN Reason: Interaction Checking Stop: 04/14/19 11:59 Last Admin: 04/10/19 12:00 Dose: 95 ml Documented by: Code Status & VTE Plan Code Status DNR/DNI as discussed with the patient. Supervising Physician Co-Signing Physician Notes Patient seen and examined independently of Dr. Banks. Agree with history, exam findings, assessment and plan of care as documentd. Discussed with Dr. Banks. In brief, Ms. Mendoza is a very pleasant 74 year old female with history of recent infectious endocarditis (on IV abx), lung cancer, discitis, HTN, pAF admitted with acute blood loss anemia. She has a history of prior guiac positive stools but endoscopy was deferred due to other complicating medication issues. She did have an episode of acute anemia requiring transfusion during her last admission, although it is unclear what the source of bleeding was at that time. She has been having loose, dark stools for 1-2 days prior to admission. In the ED, labs significant for hgb 6.2. BUN 18, which is lower than past admission. CT abd/pelvis with gallbladder sludge but otherwise unremarkable. On exam, she is pale and ill appearing. She is on 2L NC. HR 70s. Blood pressures are stable. Conjunctiva pale. Systolic murmur. Abdomen is soft and nontender. Rectal exam deferred. 1. acute blood loss anemia. hgb 6.2. transfusing 2 units. Lasix between units. 2. upper GI bleed. IV PPI BID. Stop xarelto. NPO except sips and chips. Consult GI to discuss whether or not scope is indicated at this time. 3. infective endocarditis. continue amp and rocephin. 4. elevated AlkP. Obtain GGT to help differentiate hepatic vs bone or other cause of AlkP elevation. Other chronic conditions stable and home medications continued. Resident Activity Tracking Resident Involvement: Resident Care Provided Care Provided: Adult Hospital Medicine (1) Rheumatoid arthritis Rheumatoid arthritis location: unspecified site Rheumatoid factor presence: unspecified presence Qualified Code(s): M06.9 - Rheumatoid arthritis, unspecified (2) Infective endocarditis Chronicity: acute Infective endocarditis organism: bacterial Qualified Code(s): I33.0 - Acute and subacute infective endocarditis (3) COPD (chronic obstructive pulmonary disease) COPD type: unspecified COPD Qualified Code(s): J44.9 - Chronic obstructive pulmonary disease, unspecified
[2019-04-10] MEDS ORDERED: AMPICILLIN SODIUM 2 GM IV SCH (15:21)
[2019-04-10] MEDS ORDERED: ALBUTEROL 0.083% NEBU SOLN 3 ML VIAL NEB PRN (15:21)
[2019-04-10] MEDS ORDERED: TRAMADOL HCL 50 MG TABLET PO PRN (15:21)
[2019-04-10] MEDS ORDERED: NICOTINE 21 MG/24 HR TDSY TD PRN (15:21)
[2019-04-10] MEDS ORDERED: FUROSEMIDE 40 MG in SYRINGE 0 ML IV ONE (15:45)
[2019-04-10] MEDS: ACETAMINOPHEN 325 MG TAB PO PRN (17:19)
[2019-04-10] MEDS: dilTIAZem HCL 240 MG CAPCR PO SCH (17:20)
[2019-04-10] MEDS: LOSARTAN POTASSIUM 50 MG TAB PO SCH (17:21)
[2019-04-10] MEDS: ALPRAZolam 0.5 MG TABLET PO SCH (17:26)
[2019-04-10] MEDS: LACTOBACILLUS ACIDOPHILUS (FLORANEX) TAB PO SCH (17:27)
[2019-04-10] MEDS: AMPICILLIN 2,000 MG in SODIUM CHLOR 0.9% AD-VAN 100 ML IV SCH (19:42)
[2019-04-10] MEDS: cefTRIAXone SODIUM 2,000 MG in DEXTROSE 5% 50 ML IV SCH (20:50)
[2019-04-10] MEDS: POTASSIUM CHLORIDE 10 MEQ TABCR PO SCH (20:53)
[2019-04-10] MEDS ORDERED: NON-FORMULARY MEDICATION (Ceftriaxone 2 GM) IV SCH (21:00)
[2019-04-10] MEDS: PANTOprazole 40 MG in SYRINGE 0 ML IV SCH (21:30)
[2019-04-11] MEDS: AMPICILLIN 2,000 MG in SODIUM CHLOR 0.9% AD-VAN 100 ML IV SCH ×4 (01:28→20:07)
[2019-04-11] MEDS: cefTRIAXone SODIUM 2,000 MG in DEXTROSE 5% 50 ML IV SCH ×2 (05:57→18:09)
[2019-04-11 08:22] LABS: Potassium 3.6 mmol/L (3.5-5.1)
[2019-04-11 08:23] LABS: Albumin Level 1.9 gm/dl (3.4-5.0); BUN Creatinine Ratio 20.4 (10-20); Calcium 8.6 mg/dl (8.5-10.1); Creatinine Clr Calc Pharmacy 37.4 ml/min
[2019-04-11 08:25] LABS: Albumin Globulin Ratio 0.5 (0.9-2); Bilirubin,Total 0.3 mg/dl (0.2-1); Globulin 3.5 gm/dl (2.5-4.0); Total Protein 5.4 gm/dl (6.4-8.2)
[2019-04-11] MEDS: PANTOprazole 40 MG in SYRINGE 0 ML IV SCH ×2 (08:30→20:05)
[2019-04-11 08:31] LABS: Basophils # (auto) 0.03 K/uL (0-0.2); Basophils % (auto) 0.5 %; Eosinophils # (auto) 0.41 K/uL (0-0.5); Eosinophils % (auto) 7.3 %; Hematocrit (blood only) 27.9 % (37-47); Hemoglobin 9.5 g/dL (12.0-16.0); Immature Granulocytes # (auto) 0.01 K/uL (0.00-0.02); Immature Granulocytes % (auto) 0.2 %; Lymphocytes # (auto) 0.91 K/uL (1.2-3.4); Lymphocytes % (auto) 16.2 %; Mean Corpuscular Hgb Conc 34.1 g/dL (32-36); Mean Corpuscular Volume 84.8 fL (80-100); Mean Platelet Volume 9.2 fL (7.4-10.4); Monocytes # (auto) 0.49 K/uL (0.11-0.59); Monocytes % (auto) 8.7 %; Neutrophils # (auto) 3.76 K/uL (1.4-6.5); Neutrophils % (auto) 67.1 %; Platelet Count 208 K/uL (130-400); RDW Coefficient of Variation 19.7 % (11.5-14.5); RDW Standard Deviation 56.4 fL (36.4-46.3); Red Blood Count 3.29 M/uL (4.2-5.4); White Blood Count 5.61 K/uL (4.8-10.8)
[2019-04-11] MEDS: LACTOBACILLUS ACIDOPHILUS (FLORANEX) TAB PO SCH ×3 (10:29→17:35)
[2019-04-11] MEDS: LOSARTAN POTASSIUM 50 MG TAB PO SCH (10:58)
[2019-04-11] MEDS: ALPRAZolam 0.5 MG TABLET PO SCH (10:58)
[2019-04-11] MEDS: FUROSEMIDE 20 MG TAB PO SCH (10:59)
[2019-04-11] MEDS: dilTIAZem HCL 240 MG CAPCR PO SCH (10:59)
[2019-04-11] MEDS: POTASSIUM CHLORIDE 10 MEQ TABCR PO SCH ×2 (10:59→20:06)
[2019-04-11] MEDS: LACTATED RINGER'S 1,000 ML IV SCH (11:01)
--- NOTE | 2019-04-11 15:46 | Family Medicine Progress Note ---
Date of Service April 11, 2019 Assessment & Plan (1) Acute GI bleedin-year-old female was readmitted on 10 Apr 2019 from [facility] due to melena. Of note, she was an inpatient from March 10 to March 21 for infective endocarditis amongst other issues and again from March 25- for hypoxemic respiratory failure. Acute (GI bleed) on chronic anemia: About two days of worsening melena prior to admit. Family says received blood at [facility] prior to transfer. Prior planned endoscopy held due to bacterial endocarditis. On Xarelto for pAfib. Prior Hb around 10, admit Hb 6.2. Received one unit PRBCs in ED. Started on Protonix drip. Held Xarelto. Hb improved to 9.5. - GI recommendations pending. Will keep NPO at midnight in case of endoscopy tomorrow. - May need iron on discharge. 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 Most recently seen on 15May TTE with mitral and aortic valve masses. EF 55-60%. Continuing ampicillin and ceftriaxone through . Acute on chronic hypoxic respiratory failure: In setting of acute blood loss. H istorically intolerant of inhalers. On previous admit, periods of hypoxia thought to be mixed picture between pneumonia and pulmonary edema. Continued on home Lasix 60 mg daily. Albuterol and supplemental oxygen (including CPAP/BiPAP) as needed. Elevated alk phos: Admit AP 232. AST, ALT, and total bilirubin normal. 26May CT a/p with IV contrast noted some gallbladder sludge and stones without thickening. GGT pending. May be bone / arthritis related. Prior aspiration pneumonia: Prior video swallow on 16May noted moderate to severe pharyngeal stage dysphagia along with occasional silent aspiration. Dietary precautions here. Ongoing medical issues: - History of lung cancer s/p right lower lobe lobectomy in 2017 and chemotherapy. - Hypertension: Continue home diltiazem, losartan, potassium. - Paroxysmal atrial fibrillation: Continue diltiazem. --- Held Xarelto due to GI bleed. - Rheumatoid arthritis: Not presently on any DMARDs. - Anxiety: Continue home Xanax. - Spinal discitis: T11-T12 as well as L3-L4. Seen by orthopedics on a previous admission, no surgical intervention recommended at that time. Has some ongoing back pain, so continue home tramadol. - Left psoas abscess: As seen on prior admission, 1 cm, asymptomatic. Treated with IV antibiotics. - Cognitive impairment: Concerns for same / dementia on prior admissions. [id number] MRI of her brain was negative for septic emboli. - ? possible myelodysplasia: Report that peripheral smear on 18Apr suggested possible myelodysplasia. Code status: DO NOT RESUSCITATE. Diet: Regular, think liquids, no straws, aspiration precautions. NPO at midnight tonight. DVT prophy: Chemical prophylaxis contraindicated during acute anemia. PT/OT: Ordered. Disbo: Admitted to PCU telemetry. Case management consulted. Recently transferred from [facility]. Normally lives at home. - Will transfer to med surg today. (2) Chronic anemia: (3) Infective endocarditis: (4) Acute and chronic respiratory failure with hypoxia: (5) Elevated alkaline phosphatase level: (6) History of aspiration pneumonia: (7) History of lung cancer: (8) Hypertension: (9) Atrial fibrillation: (10) Rheumatoid arthritis: (11) Anxiety: (12) Discitis of multiple sites of spine: (13) Psoas abscess, left: (14) Cognitive impairment: Supervising Physician Co-Signing Physician Notes I personally examined the patient and verified all swan points of history and exam, discussed case, and agree with decision making with Dr Ramirez. no further bleeding. awaiting GI input. vitals noted, nad, pleasant. breathing unlabored no pallor or icterus. no focal neuro deficits. GI bleed w acute/subacute blood loss anemia - now post transfusion. Hgb more stable. GI input pending but appears stable enough to scope - especially since bleeding has now required ?8 units of total transfusion since this was first discovered. holding anticoagulation due to above otherwise as above Subjective Found patient resting in bed very comfortably. She denied any particular concerns, pains, or initially any questions. However, she did ask later with the cause of all of her symptoms were. On ROS, she did note some dark black stool yesterday. Review of Systems Review of Systems: Per HPI as above. Physical Exam Physical Exam: General Appearance: Awake, alert, comfortable in general, NAD. CV: +S1S2 irregularly irregular, no murmur. Right chest port accessed. Pulm: Clear to auscultation throughout. 2 L nasal cannula oxygen ongoing. Abdomen: +BS, soft, non-tender, non-distended. Extremities: No pedal edema or calf tenderness. Moving all extremities naturally and easily. Neuro: No gross neuro deficits. Results & Data Vital Signs (Past 12 Hours) Vital Signs Temp Pulse Pulse Resp BP Pulse Ox 04/11/19 13:02 36.8 C 89 18 131/70 93 04/11/19 08:00 36.4 C L 64 83 18 146/73 H 04/11/19 07:21 36.9 C 80 18 123/60 95 04/11/19 04:17 36.4 C L 48 L 17 125/65 99 Laboratory Results 04/11/19 04/11/19 04/11/19 Range/Units 07:41 07:41 05:55 WBC 5.61 (4.8-10.8) K/uL RBC 3.29 L (4.2-5.4) M/uL Hgb 9.5 L D (12.0-16.0) g/dL Hct 27.9 L (37-47) % MCV 84.8 (80-100) fL MCH 28.9 (25-34) pg MCHC 34.1 (32-36) g/dL RDW Std Deviation 56.4 H (36.4-46.3) fL RDW Coeff of Jose 19.7 H (11.5-14.5) % Plt Count 208 (130-400) K/uL MPV 9.2 (7.4-10.4) fL Immature Gran % (Auto) 0.2 % Neut % (Auto) 67.1 % Lymph % (Auto) 16.2 % [place] % (Auto) 8.7 % Eos % (Auto) 7.3 % Baso % (Auto) 0.5 % Immature Gran # (Auto) 0.01 (0.00-0.02) K/uL Neut # (Auto) 3.76 (1.4-6.5) K/uL Lymph # (Auto) 0.91 L (1.2-3.4) K/uL [place] # (Auto) 0.49 (0.11-0.59) K/uL Eos # (Auto) 0.41 (0-0.5) K/uL Baso # (Auto) 0.03 (0-0.2) K/uL Sodium 144 (136-145) mmol/L Potassium 3.6 (3.5-5.1) mmol/L Chloride 109 H (98-107) mmol/L Carbon Dioxide 24 (21-32) mmol/L Anion Gap 10.0 (3-11) BUN 18 (7-18) mg/dl Creatinine 0.90 (0.6-1.2) mg/dl Est Cr Clr Drug Dosing 37.4 ml/min Est GFR ( Amer) 73.0 Est GFR (Non-Af Amer) 63.0 BUN/Creatinine Ratio 20.4 H (10-20) Glucose 80 (70-99) mg/dl Calcium 8.6 (8.5-10.1) mg/dl Total Bilirubin 0.3 (0.2-1) mg/dl GGT Pending AST 12 L (15-37) U/L ALT 21 (12-78) U/L Alkaline Phosphatase 187 H (45-117) U/L Total Protein 5.4 L (6.4-8.2) gm/dl Albumin 1.9 L (3.4-5.0) gm/dl Globulin 3.5 (2.5-4.0) gm/dl Albumin/Globulin Ratio 0.5 L (0.9-2) Crossmatch 04/10/19 Range/Units 10:47 WBC (4.8-10.8) K/uL RBC (4.2-5.4) M/uL Hgb (12.0-16.0) g/dL Hct (37-47) % MCV (80-100) fL MCH (25-34) pg MCHC (32-36) g/dL RDW Std Deviation (36.4-46.3) fL RDW Coeff of Jose (11.5-14.5) % Plt Count (130-400) K/uL MPV (7.4-10.4) fL Immature Gran % (Auto) % Neut % (Auto) % Lymph % (Auto) % [place] % (Auto) % Eos % (Auto) % Baso % (Auto) % Immature Gran # (Auto) (0.00-0.02) K/uL Neut # (Auto) (1.4-6.5) K/uL Lymph # (Auto) (1.2-3.4) K/uL [place] # (Auto) (0.11-0.59) K/uL Eos # (Auto) (0-0.5) K/uL Baso # (Auto) (0-0.2) K/uL Sodium (136-145) mmol/L Potassium (3.5-5.1) mmol/L Chloride (98-107) mmol/L Carbon Dioxide (21-32) mmol/L Anion Gap (3-11) BUN (7-18) mg/dl Creatinine (0.6-1.2) mg/dl Est Cr Clr Drug Dosing ml/min Est GFR ( Amer) Est GFR (Non-Af Amer) BUN/Creatinine Ratio (10-20) Glucose (70-99) mg/dl Calcium (8.5-10.1) mg/dl Total Bilirubin (0.2-1) mg/dl GGT AST (15-37) U/L ALT (12-78) U/L Alkaline Phosphatase (45-117) U/L Total Protein (6.4-8.2) gm/dl Albumin (3.4-5.0) gm/dl Globulin (2.5-4.0) gm/dl Albumin/Globulin Ratio (0.9-2) Crossmatch See Detail Medications Administered Current Inpatient Medications Acetaminophen (Tylenol) 650 mg PO Q4 PRN PRN Reason: pain on scale 1-3 Stop: 05/10/19 15:20 Last Admin: 04/10/19 17:19 Dose: 650 mg Documented by: Albuterol (Ventolin 0.083% 2.5mg/3ml) 2.5 mg NEB Q4H PRN PRN Reason: Wheezing Stop: 05/10/19 15:20 Alprazolam (Xanax) 0.5 mg PO DAILY [facility] Stop: 05/10/19 15:20 Last Admin: 04/11/19 10:58 Dose: 0.5 mg Documented by: Diltiazem HCl (Cardizem Cd) 240 mg PO DAILY [facility] Stop: 05/10/19 15:20 Last Admin: 04/11/19 10:59 Dose: 240 mg Documented by: Furosemide (Lasix) 60 mg PO DAILY [facility] Stop: 05/11/19 08:59 Last Admin: 04/11/19 10:59 Dose: 60 mg Documented by: Sodium Chloride (Nss) 250 mls @ 15 mls/hr IV .[id number] PRN PRN Reason: For Transfusion Stop: 05/10/19 11:31 Sodium Chloride (Nss) 250 mls @ 15 mls/hr IV .[id number] PRN PRN Reason: For Transfusion Stop: 05/10/19 15:36 Pantoprazole Sodium 40 mg/ (Syringe) 10 mls @ 5 mls/min IV BID@0900,2100 [facility] Stop: 05/10/19 20:59 Last Admin: 04/11/19 08:30 Dose: 5 mls/min Documented by: Ceftriaxone Sodium 2,000 mg/ (Dextrose) 70 mls @ 140 mls/hr IV Q12H [facility]; Protocol Stop: 04/24/19 23:59 Last Infusion: 04/11/19 06:37 Dose: Infused Documented by: Ampicillin Sodium 2,000 mg/ (Sodium Chloride) 100 mls @ 200 mls/hr IV Q6H [facility]; Protocol Stop: 04/24/19 23:59 Last Infusion: 04/11/19 14:24 Dose: Infused Documented by: Lactated Ringer's (Lr) 1,000 mls @ 75 mls/hr IV .[id number] [facility] Stop: 05/11/19 10:44 Last Infusion: 04/11/19 14:24 Dose: 75 mls/hr Documented by: Ioversol (Optiray 320 100ml) 95 ml IV ONCE PRN PRN Reason: Interaction Checking Stop: 04/14/19 11:59 Last Admin: 04/10/19 12:00 Dose: 95 ml Documented by: Lactobacillus Acidophilus (Floranex) 4 tab PO TIDM [facility] Stop: 05/10/19 16:59 Last Admin: 04/11/19 10:58 Dose: 4 tab Documented by: Losartan Potassium (Cozaar) 150 mg PO DAILY [facility] Stop: 05/10/19 15:20 Last Admin: 04/11/19 10:58 Dose: 150 mg Documented by: Miscellaneous (Remove Nicoderm Patch) 1 ea N/A HS [facility] Stop: 05/10/19 20:59 Last Admin: 04/10/19 20:53 Dose: Not Given Documented by: Nicotine (Nicoderm Cq) 21 mg TD QAM PRN PRN Reason: nicotine craving Stop: 05/10/19 15:20 Potassium Chloride (Klor-Con M10) 10 meq PO BID [facility] Stop: 05/10/19 20:59 Last Admin: 04/11/19 10:59 Dose: 10 meq Documented by: Sucralfate (Carafate) 1 gm PO QID [facility] Stop: 05/11/19 16:59 Tramadol HCl (Ultram) 50 mg PO Q4H PRN PRN Reason: pain Stop: 05/10/19 15:20 Resident Activity Tracking Resident Involvement: Resident Care Provided Care Provided: Adult [facility] (1) Rheumatoid arthritis Rheumatoid arthritis location: unspecified site Rheumatoid factor presence: unspecified presence Qualified Code(s): M06.9 - Rheumatoid arthritis, unspecified (2) Infective endocarditis Chronicity: acute Infective endocarditis organism: bacterial Qualified Code(s): I33.0 - Acute and subacute infective endocarditis (3) Atrial fibrillation Atrial fibrillation type: unspecified Qualified Code(s): I48.91 - Unspecified atrial fibrillation
[2019-04-11] MEDS: SUCRALFATE 1 GM/10 ML UDC PO SCH ×2 (17:35→20:06)
--- NOTE | 2019-04-11 22:27 | Consultation Report ---
DATE OF CONSULTATION: 04/11/2019 RACE: . ATTENDING PHYSICIAN: Toni Jiménez DO CONSULTING PHYSICIAN: Raad Alanis DO REASON FOR CONSULTATION: GI bleed. HISTORY OF PRESENT ILLNESS: Veronica Mendoza is a 74-year-old female who has an extensive past medical history including recent hospitalizations with diskitis. She subsequently was admitted for hypoxemic respiratory failure and significant anemia. She was discharged on 04/03/2019 to [facility]. She returned to the Department of Emergency Medicine on 04/10/2019 with melena and diarrhea. She is on Xarelto therapy as an outpatient for atrial fibrillation and upon arrival was noted to have a decline in her H and H from her discharge date of 04/03/2019 of 9.8 and 30.4 to 6.2 and 18.4 on evaluation in the ER. She subsequently was transfused 2 units of packed red blood cells and had an improvement in her H and H to 9.5 and 27.9 this morning. She was placed on Protonix 40 mg IV b.i.d. and continues on her ceftriaxone and ampicillin therapy for bacterial endocarditis. She was on our schedule for 04/24/2019 to undergo EGD as an outpatient, though this was prior to her presentation with acute blood loss anemia. By the time that I saw her today, she denied any abdominal pain. She states that she has not had any hematemesis, melena, or hematochezia since her admission. She states she is feeling slightly better. Denies any lightheadedness, dizziness, syncope. She further denies any chest pain, palpitations, shortness of breath, cough, and denies any fevers or chills. She has no further complaints. PAST MEDICAL HISTORY: Extensive and includes bacterial endocarditis, history of lung cancer, atrial fibrillation on chronic anticoagulation with Xarelto therapy, anemia, rheumatoid arthritis, diskitis, septicemia due to enterococcus, chronic kidney disease stage IIIA, cognitive impairment, essential hypertension, COPD, lung cancer. PAST SURGICAL HISTORY: Includes lobectomy of the lung. ALLERGIES: None. MEDICATIONS AT PRESENT: Include Protonix 40 mg IV b.i.d., ceftriaxone 2 grams IV q. 12 hours, ampicillin 2 grams IV q. 6 hours, diltiazem 240 mg p.o. daily, Lasix 60 mg p.o. daily, Floranex 4 tabs p.o. t.i.d., potassium chloride 10 mEq p.o. b.i.d., alprazolam 0.5 mg p.o. daily, Cozaar 150 mg p.o. daily. P.r.n. medications include Tylenol, albuterol, nicotine patch, and tramadol. SOCIAL HISTORY: She is . She smokes a half to a full pack per day and has a [id number] history of smoking. She denies any alcohol or illicit drug use. FAMILY HISTORY: Negative for GI malignancy or inflammatory bowel disease. REVIEW OF SYSTEMS: Negative x10 system review other than pertinent positives listed in the HPI. PHYSICAL EXAMINATION: VITAL SIGNS: Include a temp of 36.8, pulse of 89, respirations 18, blood pressure 131/70, pulse ox 93% on 2 liters via nasal cannula. GENERAL: She is awake, cooperative, chronic ill appearing, in no acute distress. HEAD: Normocephalic, atraumatic. EYES: Pupils equal, round. Extraocular muscles are intact. ENT: External evaluation of the ears and nose are normal. Oropharynx is clear. NECK: Soft and supple. There is no JVD or lymphadenopathy. CHEST: Clear to auscultation bilaterally. CARDIOVASCULAR SYSTEM: Irregularly irregular. ABDOMEN: Soft, nontender, nondistended. Positive bowel sounds. There is no hepatosplenomegaly or stigmata of chronic liver disease. EXTREMITIES: No clubbing or cyanosis. LABORATORY STUDIES AND RADIOGRAPHIC STUDIES: Reviewed in the HPI. IMPRESSION: A 74-year-old female with acute blood loss anemia, melena, and a presumed upper GI bleed. PLAN: At the present time, I would recommend keeping the patient n.p.o. after midnight. I will continue her on Protonix 40 mg IV b.i.d. I would also add Carafate 1 gram p.o. q.i.d. a.c. and at bedtime. I will recommend that she undergo an upper endoscopy tomorrow for further evaluation of her above-noted symptoms. I will make further recommendations following the above-noted testing. Once again, thanks for allowing me to participate in the care of this patient. If you have any further questions, please do not hesitate in contacting me.
[2019-04-12] MEDS: AMPICILLIN 2,000 MG in SODIUM CHLOR 0.9% AD-VAN 100 ML IV SCH ×4 (00:59→19:07)
[2019-04-12] MEDS: ACETAMINOPHEN 325 MG TAB PO PRN (01:09)
[2019-04-12] MEDS: LACTATED RINGER'S 1,000 ML IV SCH ×2 (01:54→22:15)
[2019-04-12] MEDS: cefTRIAXone SODIUM 2,000 MG in DEXTROSE 5% 50 ML IV SCH ×2 (06:40→18:23)
[2019-04-12 06:51] LABS: Hematocrit (blood only) 23.8 % (37-47); Hemoglobin 8.2 g/dL (12.0-16.0)
[2019-04-12] MEDS: PANTOprazole 40 MG in SYRINGE 0 ML IV SCH ×2 (08:02→20:17)
[2019-04-12] MEDS ORDERED: SODIUM CHLORIDE 0.9% 250 ML IV PRN (08:07)
--- NOTE | 2019-04-12 08:35 | Anesthesiology Consultation ---
Date of Service April 12, 2019 Assessment & Plan Chart Review Chart Review: Acceptable Risk for Surgery and Patient NOT seen in Pre Admission Testing Consults Requested none ASA ASA4 Proposed Anesthesia Anesthesia Type: MAC Risk / Benefits Reviewed With: PT / POA / Parent / Guardian, Accepts Plan and Informed Consent Obtained History Surgery Operation Date: 04/12/19 08:30 Proposed Procedures p Esophagogastroduodenoscopy Dr Alanis - Raad Alanis, DO Height/Weight Height: 1.5 m Weight: 43.9 kg Allergies Allergy/AdvReac Type Severity Reaction Status Date / Time No Known Allergies Allergy Verified 04/10/19 12:10 Medications Home Medications Medication Instructions Recorded Confirmed Last Taken diltiazem HCl 240 mg PO DAILY 12/14/18 04/10/19 Unknown docusate sodium [Colace] 100 mg PO BID 12/14/18 04/10/19 Unknown Lactobacillus acidoph-L.bulgar 4 tab PO TIDM #360 tab 03/21/19 04/10/19 Unknown [Floranex] Xarelto 20 mg PO PM #0 tab 03/21/19 04/10/19 Unknown ampicillin sodium 2 gm IV Q6H 34 Days #136 ea 03/21/19 04/10/19 03/25/19 01:00 nicotine [Nicoderm CQ] 21 mg TRANSDERMAL QAM PRN #7 ea 03/21/19 04/10/19 Unknown tramadol 50 mg PO Q4H PRN #18 tab 03/21/19 04/10/19 Unknown acetaminophen [Tylenol] 650 mg PO Q4 PRN 03/25/19 04/10/19 Unknown albuterol sulfate 2.5 mg NEB Q4H PRN 03/25/19 04/10/19 03/25/19 01:00 ceftriaxone 2 gm IV Q12 03/25/19 04/10/19 03/24/19 22:00 polyethylene glycol 3350 [Miralax] 17 g PO UD PRN 03/25/19 04/10/19 Unknown potassium chloride 10 meq PO BID 03/25/19 04/10/19 Unknown sennosides-docusate sodium 1 tab PO UD PRN 03/25/19 04/10/19 Unknown [Senokot-S] furosemide 60 mg PO DAILY 15 Days #45 tab 04/03/19 04/10/19 Unknown losartan 150 mg PO DAILY 30 Days #90 tab 04/03/19 04/10/19 Unknown alprazolam 0.5 mg PO DAILY 04/10/19 04/10/19 Unknown bisacodyl 10 mg HI DAILY PRN 04/10/19 04/10/19 Unknown magnesium hydroxide 30 ml PO DAILY PRN 04/10/19 04/10/19 Unknown sodium phosphates [Fleet Enema] 118 ml HI DAILY PRN 04/10/19 04/10/19 Unknown Active Medications Generic Name Dose Route Start Last Admin Trade Name Freq PRN Reason Stop Dose Admin Acetaminophen 650 mg 04/10/19 15:21 04/12/19 01:09 Tylenol PO 05/10/19 15:20 325 mg Q4 PRN Administration pain on scale 1-3 Alprazolam 0.5 mg 04/10/19 15:21 04/11/19 10:58 Xanax PO 05/10/19 15:20 0.5 mg DAILY SH[facility] Administration Diltiazem HCl 240 mg 04/10/19 15:21 04/11/19 10:59 Cardizem Cd PO 05/10/19 15:20 240 mg DAILY [facility] Administration Furosemide 60 mg 04/11/19 09:00 04/11/19 10:59 Lasix PO 05/11/19 08:59 60 mg DAILY [facility] Administration Pantoprazole Sodium 40 mg/ 10 mls @ 5 mls/min 04/10/19 21:00 04/12/19 08:02 Syringe IV 05/10/19 20:59 5 mls/min BID@0900,2100 [facility] Administration Ceftriaxone Sodium 2,000 mg/ 70 mls @ 140 mls/hr 04/10/19 19:00 04/12/19 07:47 Dextrose IV 04/24/19 23:59 Infused Q12H [facility] Infusion Protocol Ampicillin Sodium 2,000 mg/ 100 mls @ 200 mls/hr 04/10/19 19:00 04/12/19 06:25 Sodium Chloride IV 04/24/19 23:59 Infused Q6H [facility] Infusion Protocol Lactated Ringer's 1,000 mls @ 75 mls/hr 04/11/19 10:45 04/12/19 07:47 Lr IV 05/11/19 10:44 75 mls/hr .[id number] [facility] Infusion Ioversol 95 ml 04/10/19 12:00 04/10/19 12:00 Optiray 320 100ml IV 04/14/19 11:59 95 ml ONCE PRN Administration Interaction Checking Lactobacillus Acidophilus 4 tab 04/10/19 17:00 04/11/19 17:35 Floranex PO 05/10/19 16:59 4 tab TIDM [facility] Administration Losartan Potassium 150 mg 04/10/19 15:21 04/11/19 10:58 Cozaar PO 05/10/19 15:20 150 mg DAILY [facility] Administration Miscellaneous 1 ea 04/10/19 21:00 04/11/19 20:18 Remove Nicoderm Patch N/A 05/10/19 20:59 Not Given HS [facility] Potassium Chloride 10 meq 04/10/19 21:00 04/11/19 20:06 Klor-Con M10 PO 05/10/19 20:59 10 meq BID [facility] Administration Sucralfate 1 gm 04/11/19 17:00 04/11/19 20:06 Carafate PO 05/11/19 16:59 1 gm QID [facility] Administration NPO Date Last Intake of Fluids: 04/11/19 Time Last Intake of Fluids: 12:00 Date Last Intake of Solids: 04/11/19 Time Last Intake of Solids: 12:00 Past Medical History Medical History Pleural effusion Pneumonia (Acute) Essential (primary) hypertension Cognitive impairment Chronic kidney disease, stage 3a Septicemia due to enterococcus (Acute) Current smoker (Chronic) Discitis of multiple sites of spine Atrial fibrillation Rheumatoid arthritis Anemia s/p 2units PRBCs COPD (chronic obstructive pulmonary disease) Lung cancer Mitral regurgitation Exercise / Class Metabolic Activity II 4-5 Yardwork/Stairs/Walk up hill Past Family History Family History Father Hypertension Past Surgical History Surgical History S/P cataract extraction S/P lobectomy of lung LLL, in 09/2017 Past Anesthesia History No Hx of Anesthesia Complications and No Family Hx of Anesthesia Complications History of PONV No Hx of PONV and No Hx of Motion Sickness Social History Smoking Status: Current every day smoker tobacco type: cigarettes Smoking cigarettes per day: 10-20 x 60 years Do You Dip or Chew Tobacco: No Hx Alcohol Use: No Hx Substance Use: No substance use type: does not use Review of Systems Respiratory: no dyspnea Cardiovascular: no chest pain and no dyspnea on exertion Gastrointestinal: no nausea and no vomiting Physical Exam Vital Signs Last Vital Signs Temp 36.5 C 04/12/19 07:36 Pulse 78 04/12/19 07:36 Resp 16 04/12/19 07:36 BP 145/74 H 04/12/19 07:36 Pulse Ox 98 04/12/19 07:36 ENMT Mouth: no TMJ abnormality and no TMJ clicking Thyromental Distance: > or= 3.5 Finger Breadths Mallampati Class: I Neck normal visual inspection; neck extension not limited Respiratory Auscultation: lungs clear to auscultation bilaterally Cardiovascular Rate/Rhythm: regular rate and regular rhythm Psychiatric Orientation: alert and oriented x 3 Testing Electrocardiogram Date: 04/10/19 Findings: + NSR @ (97 bpm) Sinus rhythm with Premature atrial complexes with Aberrant conduction Otherwise normal ECG When compared with ECG of 25-MAR-2019 05:03, Aberrant conduction is now Present Confirmed by Quan Perez ([id number]) on 04/11/2019 12:20:40 PM Chest X-Ray Date: 03/30/19 FINDINGS: Tunneled right internal jugular central venous catheter remains positioned at the lower SVC. Atherosclerosis of aortic arch. Mediastinal surgical clips in the region of the left hilum and post surgical changes of the left apex as on prior exam. Cardiac silhouette top normal in size. Diffuse reticular opacities with superimposed hazy and more dense opacity in the right upper lung as well as at the lung bases. This has not significantly changed since the prior exam and does not appear improved. Small right pleural effusion may be present. No large pneumothorax. Degenerative changes of the thoracic spine. Upper abdomen normal. IMPRESSION: 1. No evidence of interval improvement with persistent right upper and bibasilar infiltrates superimposed on chronic lung disease most characteristic of multifocal pneumonia. 2. Small right pleural effusion, which may be new or increased from prior. 3. Post surgical changes of the left lung. Echocardiogram Date: 03/30/19 EF: 55-60% LV Function: normal RWMA: + none Other Findings: + LVH (Mild) Normal RV size and function Mobile 0.7cm mass on psterior leaflet of mitral valve Moderate eccentric MR Mobile mass of on AV Mild aortic insufficiency Compared with prior study on 03/09/2019: vegetations largely unchanged. MR slightly worse
--- NOTE | 2019-04-12 09:44 | History & Physical Bridge Note ---
Date of Service April 12, 2019 History & Physical Bridge Note I have examined the patient, reviewed the History & Physical and in the interval since the performance of the History & Physical I have noted the following changes of clinical significance: Patient's H&H did drop again slightly overnight. Was 9.5 and 27.9 and was down to 8.2 and 23.8. Patient is NPO for EGD today. She states she is doing well with exception of mild abdominal "soreness". Denies any chest pain, palpitations or shortness of breath. Cardiac: RRR. Chest: Lungs CTA. Abdomen: soft, normal bowel sounds. Mild epigastric tenderness. A/P: A 74-year-old female with acute blood loss anemia, melena, and a presumed upper GI bleed. Proceed with EGD with Dr. Alanis today. To remain NPO until after the procedure. Continue Protonix 40 mg IV BID. Supervising Physician Co-Signing Physician Notes Agree with SHELLEY Yi as above Abd: Soft, NT, ND, +BS Continue current therapy Proceed with EGD today.
[2019-04-12] MEDS ORDERED: PROPOFOL IV EMULSION 10 MG/ML 20 ML VIAL IV ONE (10:41)
[2019-04-12] MEDS ORDERED: LIDOCAINE HCL 2% 2 ML VIAL/AMP(20MG/ML) INFIL ONE (10:41)
[2019-04-12] MEDS ORDERED: ONDANSETRON INJ 2 MG/ML 2 ML VIAL ONE (10:42)
[2019-04-12] MEDS ORDERED: PHENYLEPHRINE 100MCG/ML 5ML SYR ONE (11:22)
--- NOTE | 2019-04-12 11:33 | GI REPORT ---
Patient Name: Veronica Mendoza Procedure Date: 04/12/2019 10:40 AM Date of : 1945 Admit Type: Inpatient Age: 74 Gender: Female Attending MD: Raad Alanis DO Procedure: Upper GI endoscopy Providers: Raad Alanis DO Referring MD: Toni Jiménez Indications: Melena Medicines: Monitored Anesthesia Care Complications: No immediate complications. Estimated Blood Loss: Estimated blood loss: none. Procedure: Pre-Anesthesia Assessment: - Prior to the procedure, a History and Physical was performed, and patient medications and allergies were reviewed. The patient's tolerance of previous anesthesia was also reviewed. The risks and benefits of the procedure and the sedation options and risks were discussed with the patient. All questions were answered, and informed consent was obtained. Prior Anticoagulants: The patient has taken Xarelto (rivaroxaban), last dose was 1 day prior to procedure. ASA Grade Assessment: IV - A patient with severe systemic disease that is a constant threat to life. After reviewing the risks and benefits, the patient was deemed in satisfactory condition to undergo the procedure. After obtaining informed consent, the endoscope was passed under direct vision. Throughout the procedure, the patient's blood pressure, pulse, and oxygen saturations were monitored continuously. The Endoscope was introduced through the mouth, and advanced to the second part of duodenum. The upper GI endoscopy was accomplished without difficulty. The patient tolerated the procedure well. Findings: The esophagus was normal. A small hiatal hernia was present. Four 2 to 4 mm angioectasias with bleeding were found in the first portion of the duodenum. Area was successfully injected with 5 mL of a 1:10,000 solution of epinephrine for hemostasis. Fulguration to ablate the lesion by bipolar probe was successful. Impression: - Normal esophagus. - Small hiatal hernia. - Four bleeding angioectasias in the duodenum. Injected. Treated with bipolar cautery. - No specimens collected. Recommendation: - [facility]. - Continue present medications. - Repeat upper endoscopy PRN for retreatment. Raad Alanis DO 04/12/2019 11:32:51 AM This report has been signed electronically. Note Initiated On: 04/12/2019 10:40 AM Number of Addenda: 0 I attest to the content of the Intraoperative Record and orders documented therein, exceptions below {[id number]}
[2019-04-12] MEDS: LACTOBACILLUS ACIDOPHILUS (FLORANEX) TAB PO SCH ×3 (12:00→17:01)
[2019-04-12] MEDS: SUCRALFATE 1 GM/10 ML UDC PO SCH ×4 (12:00→20:15)
--- NOTE | 2019-04-12 12:09 | Anesthesiology Progress Note ---
Date of Service April 12, 2019 Anesthesia Post Procedure Vital Signs Vital Signs: Temp Pulse Pulse Pulse Resp BP BP 04/12/19 11:57 88 18 148/50 H 04/12/19 11:50 75 18 04/12/19 11:35 86 20 156/60 H 04/12/19 11:25 88 16 138/50 L 04/12/19 10:11 36.4 C L 86 18 04/12/19 07:36 36.5 C 78 16 145/74 H 04/11/19 23:08 36.7 C 49 L 18 154/70 H 04/11/19 16:07 36.9 C 80 18 125/52 L 04/11/19 13:02 36.8 C 89 18 131/70 BP Pulse Ox 04/12/19 11:57 100 04/12/19 11:50 97 04/12/19 11:35 97 04/12/19 11:25 85 L 04/12/19 10:11 137/51 L 98 04/12/19 07:36 98 04/11/19 23:08 93 04/11/19 16:07 99 04/11/19 13:02 93 Pain Intensity Back: Pain Intensity: 4 Transfer of Care Handoff Completed per policy Notes Mental Status: alert / awake / arousable Patient Amnestic to Procedure: Yes Nausea / Vomiting: adequately controlled Pain: adequately controlled Airway Patency, RR, SpO2: stable & adequate BP & HR: stable & adequate Hydration State: stable & adequate Anesthetic Complications: no major complications apparent Notes: Awake, doing well, no complaints. VSS.
[2019-04-12] MEDS: POTASSIUM CHLORIDE 10 MEQ TABCR PO SCH ×2 (12:27→20:16)
[2019-04-12] MEDS: LOSARTAN POTASSIUM 50 MG TAB PO SCH (12:28)
[2019-04-12] MEDS: FUROSEMIDE 20 MG TAB PO SCH (12:29)
[2019-04-12] MEDS: dilTIAZem HCL 240 MG CAPCR PO SCH (12:29)
[2019-04-12] MEDS: ALPRAZolam 0.5 MG TABLET PO SCH (12:36)
--- NOTE | 2019-04-12 13:11 | Family Medicine Progress Note ---
Date of Service April 12, 2019 Assessment & Plan (1) Acute GI bleedin-year-old female was readmitted on 10 Apr 2019 from [facility] due to melena. Of note, she was an inpatient from March 10 to March 21 for infective endocarditis amongst other issues and again from March 25- for hypoxemic respiratory failure. Acute (GI bleed) on chronic anemia: About two days of worsening melena prior to admit. Multiple transfusions since late February and 1 unit PRBCs on this admit. Held her xarelto (on it for afib). On protonix drip. Ongoing Hb monitoring. 28May underwent upper GI and now s/p cautery to four bleeding duodenal angioectasias. - May need iron on discharge. 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 Most recently seen on 15May TTE with mitral and aortic valve masses. EF 55-60%. Continuing ampicillin and ceftriaxone through . Acute on chronic hypoxic respiratory failure: In setting of acute blood loss. Historically intolerant of inhalers. On previous admit, periods of hypoxia thought to be mixed picture between pneumonia and pulmonary edema. Continued on home Lasix 60 mg daily. Albuterol and supplemental oxygen (including CPAP/BiPAP) as needed. Elevated alk phos: Admit AP 232. AST, ALT, and total bilirubin normal. 26May CT a/p with IV contrast noted some gallbladder sludge and stones without thickening. GGT pending. May be bone / arthritis related. Prior aspiration pneumonia: Prior video swallow on 16May noted moderate to severe pharyngeal stage dysphagia along with occasional silent aspiration. Dietary precautions here. Ongoing medical issues: - History of lung cancer s/p right lower lobe lobectomy in 2017 and chemotherapy. - Hypertension: Continue home diltiazem, losartan, potassium. - Paroxysmal atrial fibrillation: Continue diltiazem. --- Held Xarelto due to UGI bleed. - Rheumatoid arthritis: Not presently on any DMARDs. - Anxiety: Continue home Xanax. - Spinal discitis: T11-T12 as well as L3-L4. Seen by orthopedics on a previous admission, no surgical intervention recommended at that time. Has some ongoing back pain, so continue home tramadol. - Left psoas abscess: As seen on prior admission, 1 cm, asymptomatic. Treated with IV antibiotics. - Cognitive impairment: Concerns for same / dementia on prior admissions. [id number] MRI of her brain was negative for septic emboli. - ? possible myelodysplasia: Report that peripheral smear on 18Apr suggested possible myelodysplasia. Code status: DO NOT RESUSCITATE. Diet: Liquid diet s/p EGD today. Thick liquids, no straws, aspiration precautions. DVT prophy: Chemical prophylaxis contraindicated during acute anemia. PT/OT: Recommended return to [facility] for further rehab. Disbo: Admitted to med surg. Case management consulted. Recently transferred from [facility]. Normally lives at home. (2) Chronic anemia: (3) Infective endocarditis: (4) Acute and chronic respiratory failure with hypoxia: (5) Elevated alkaline phosphatase level: (6) History of aspiration pneumonia: (7) History of lung cancer: (8) Hypertension: (9) Atrial fibrillation: (10) Rheumatoid arthritis: (11) Anxiety: (12) Discitis of multiple sites of spine: (13) Psoas abscess, left: (14) Cognitive impairment: Supervising Physician Co-Signing Physician Notes I personally examined the patient and verified all swan points of history and exam, discussed case, and agree with decision making with Dr Ramirez. feeling ok. scope noted. results and next steps of plan reviewed with pt. vitals noted, nad, pleasant. breathing unlabored no pallor or icterus. no focal neuro deficits. pleasantly anxious. GI bleed w acute/subacute blood loss anemia due to angioectasia now treated with epi injection of fulgeration - post transfusion. hold anticoagulation for now - will need to d/w GI optimum duration to hold but anticipate will be able to resume at some point in near future (and follow Hgb after resuming); PPI. follow Hgb in AM. blood on hold in event Hgb continues to trend down holding anticoagulation due to above hopefully back to [facility] tomorrow Subjective Found patient once again resting very comfortably earlier this morning. She denied any particular concerns but asked when she would be going for her EGD. On review of systems, she denied any nausea, vomiting, bowel movement yesterday, or any abdominal discomfort. Review of Systems Review of Systems: See HPI as above. Physical Exam Physical Exam: General Appearance: Awake, alert, comfortable in general, NAD. CV: +S1S2 RRR, no murmur. Right chest port accessed. Pulm: Clear to auscultation throughout. 1 L nasal cannula oxygen ongoing. Abdomen: +BS, soft, non-tender, non-distended. Extremities: No pedal edema or calf tenderness. Moving all extremities naturally and easily. Neuro: No gross neuro deficits. Results & Data Vital Signs (Past 12 Hours) Vital Signs Temp Pulse Pulse Resp BP BP BP 04/12/19 12:19 36.8 C 77 18 151/55 H 04/12/19 11:57 88 18 148/50 H 04/12/19 11:50 75 18 04/12/19 11:35 86 20 156/60 H 04/12/19 11:25 88 16 138/50 L 04/12/19 10:11 36.4 C L 86 18 137/51 L 04/12/19 07:36 36.5 C 78 16 145/74 H Pulse Ox 04/12/19 12:19 90 04/12/19 11:57 100 04/12/19 11:50 97 04/12/19 11:35 97 04/12/19 11:25 85 L 04/12/19 10:11 98 04/12/19 07:36 98 Laboratory Results 04/12/19 04/10/19 Range/Units 05:40 10:47 Hgb 8.2 L (12.0-16.0) g/dL Hct 23.8 L (37-47) % Crossmatch See Detail Medications Administered Current Inpatient Medications Acetaminophen (Tylenol) 650 mg PO Q4 PRN PRN Reason: pain on scale 1-3 Stop: 05/10/19 15:20 Last Admin: 04/12/19 01:09 Dose: 325 mg Documented by: Albuterol (Ventolin 0.083% 2.5mg/3ml) 2.5 mg NEB Q4H PRN PRN Reason: Wheezing Stop: 05/10/19 15:20 Alprazolam (Xanax) 0.5 mg PO DAILY [facility] Stop: 05/10/19 15:20 Last Admin: 04/12/19 12:36 Dose: 0.5 mg Documented by: Diltiazem HCl (Cardizem Cd) 240 mg PO DAILY [facility] Stop: 05/10/19 15:20 Last Admin: 04/12/19 12:29 Dose: 240 mg Documented by: Furosemide (Lasix) 60 mg PO DAILY [facility] Stop: 05/11/19 08:59 Last Admin: 04/12/19 12:29 Dose: 60 mg Documented by: Heparin Sodium (Beef Lung) (Heparin Sod 10 Unit/Ml Flush) 5 ml FLUSH PRN PRN PRN Reason: Flush Stop: 05/12/19 07:55 Pantoprazole Sodium 40 mg/ (Syringe) 10 mls @ 5 mls/min IV BID@0900,2100 [facility] Stop: 05/10/19 20:59 Last Admin: 04/12/19 08:02 Dose: 5 mls/min Documented by: Ceftriaxone Sodium 2,000 mg/ (Dextrose) 70 mls @ 140 mls/hr IV Q12H [facility]; Protocol Stop: 04/24/19 23:59 Last Infusion: 04/12/19 07:47 Dose: Infused Documented by: Ampicillin Sodium 2,000 mg/ (Sodium Chloride) 100 mls @ 200 mls/hr IV Q6H [facility]; Protocol Stop: 04/24/19 23:59 Last Admin: 04/12/19 12:30 Dose: 200 mls/hr Documented by: Lactated Ringer's (Lr) 1,000 mls @ 75 mls/hr IV .[id number] [facility] Stop: 05/11/19 10:44 Last Infusion: 04/12/19 09:45 Dose: 0 mls/hr Documented by: Sodium Chloride (Nss) 250 mls @ 15 mls/hr IV .[id number] PRN PRN Reason: For Transfusion Stop: 04/12/19 23:59 Ioversol (Optiray 320 100ml) 95 ml IV ONCE PRN PRN Reason: Interaction Checking Stop: 04/14/19 11:59 Last Admin: 04/10/19 12:00 Dose: 95 ml Documented by: Lactobacillus Acidophilus (Floranex) 4 tab PO TIDM [facility] Stop: 05/10/19 16:59 Last Admin: 04/12/19 12:30 Dose: 4 tab Documented by: Losartan Potassium (Cozaar) 150 mg PO DAILY [facility] Stop: 05/10/19 15:20 Last Admin: 04/12/19 12:28 Dose: 150 mg Documented by: Miscellaneous (Remove Nicoderm Patch) 1 ea N/A HS [facility] Stop: 05/10/19 20:59 Last Admin: 04/11/19 20:18 Dose: Not Given Documented by: Nicotine (Nicoderm Cq) 21 mg TD QAM PRN PRN Reason: nicotine craving Stop: 05/10/19 15:20 Potassium Chloride (Klor-Con M10) 10 meq PO BID [facility] Stop: 05/10/19 20:59 Last Admin: 04/12/19 12:27 Dose: 10 meq Documented by: Sucralfate (Carafate) 1 gm PO QID [facility] Stop: 05/11/19 16:59 Last Admin: 04/12/19 12:30 Dose: 1 gm Documented by: Tramadol HCl (Ultram) 50 mg PO Q4H PRN PRN Reason: pain Stop: 05/10/19 15:20 Resident Activity Tracking Resident Involvement: Resident Care Provided Care Provided: Adult Hospital Medicine (1) Rheumatoid arthritis Rheumatoid arthritis location: unspecified site Rheumatoid factor presence: unspecified presence Qualified Code(s): M06.9 - Rheumatoid arthritis, unspecified (2) Infective endocarditis Chronicity: acute Infective endocarditis organism: bacterial Qualified Code(s): I33.0 - Acute and subacute infective endocarditis (3) Atrial fibrillation Atrial fibrillation type: unspecified Qualified Code(s): I48.91 - Unspecified atrial fibrillation
[2019-04-12 15:16] LABS: Hematocrit (blood only) 22.3 % (37-47); Hemoglobin 7.8 g/dL (12.0-16.0)
[2019-04-12] MEDS ORDERED: Nursing to Pharmacy Communication ONE (16:42)
[2019-04-13] MEDS: AMPICILLIN 2,000 MG in SODIUM CHLOR 0.9% AD-VAN 100 ML IV SCH ×4 (01:55→18:16)
[2019-04-13 06:09] LABS: Hematocrit (blood only) 21.3 % (37-47); Hemoglobin 7.5 g/dL (12.0-16.0)
[2019-04-13] MEDS: cefTRIAXone SODIUM 2,000 MG in DEXTROSE 5% 50 ML IV SCH ×2 (06:29→19:05)
[2019-04-13] MEDS: POTASSIUM CHLORIDE 10 MEQ TABCR PO SCH ×2 (08:03→22:09)
[2019-04-13] MEDS: LOSARTAN POTASSIUM 50 MG TAB PO SCH (08:03)
[2019-04-13] MEDS: dilTIAZem HCL 240 MG CAPCR PO SCH (08:03)
[2019-04-13] MEDS: SUCRALFATE 1 GM/10 ML UDC PO SCH ×4 (08:03→22:09)
[2019-04-13] MEDS: LACTOBACILLUS ACIDOPHILUS (FLORANEX) TAB PO SCH ×3 (08:03→17:26)
[2019-04-13] MEDS: FUROSEMIDE 20 MG TAB PO SCH (08:04)
[2019-04-13] MEDS: ALPRAZolam 0.5 MG TABLET PO SCH (08:04)
[2019-04-13] MEDS: PANTOprazole 40 MG in SYRINGE 0 ML IV SCH ×2 (08:04→22:10)
[2019-04-13] MEDS: ACETAMINOPHEN 325 MG TAB PO PRN ×2 (08:22→17:25)
[2019-04-13] MEDS ORDERED: SODIUM CHLORIDE 0.9% 250 ML IV PRN (08:47)
[2019-04-13] MEDS ORDERED: FUROSEMIDE 20 MG in SYRINGE 0 ML IV ONE (08:48)
--- NOTE | 2019-04-13 10:14 | Gastroenterology Progress Note ---
Date of Service April 13, 2019 Assessment & Plan (1) AVM (arteriovenous malformation) of small bowel, acquired with hemorrhage: 1. Continue Protonix 40 mg BID. 2. Continue supportive care. 3. Repeat EGD if returning bleeding symptoms for retreatement. Supervising Physician Co-Signing Physician Notes Agree with SHELLEY Yi as above Doing better today, without evidence of overt GI bleeding Abd: Soft, NT, ND, +BS Continue current therapy Discussed case with Dr. Jiménez, recommend holding anticoagulation for at least 5 days Subjective Patient reports feeling well today. She is tolerating a regular diet. No GIB symptoms. Was found to have bleeding AVMs yesterday which were amenable to hemostasis with bipolar heater probe and epinephrine. H&H remains stable. Review of Systems Respiratory: no problem reported Cardiovascular: no problem reported Gastrointestinal: as per Subjective / HPI Physical Exam Constitutional: WD/WN, vitals as above Respiratory: normal respiratory effort, lungs clear to auscultation Cardiovascular: RRR, no murmur, no edema Gastrointestinal (Abdomen): normal bowel sounds, soft, nontender, no hepatosplenomegaly Results & Data Vital Signs (Past 12 Hours) Vital Signs Temp Pulse Pulse Resp BP BP Pulse Ox 04/13/19 10:01 36.3 C L 65 18 92/55 L 97 04/13/19 07:32 36.7 C 78 16 115/59 L 100 04/12/19 23:00 36.4 C L 70 18 111/50 L 93 Laboratory Results Abnormal lab results 04/10/19 04/11/19 04/12/19 Range/Units 10:47 05:55 14:59 Hgb 7.8 L (12.0-16.0) g/dL Hct 22.3 L (37-47) % GGT 122 H (3-65) U/L Crossmatch See Detail 04/13/19 Range/Units 05:34 Hgb 7.5 L (12.0-16.0) g/dL Hct 21.3 L (37-47) % GGT (3-65) U/L Crossmatch
[2019-04-13] MEDS: LACTATED RINGER'S 1,000 ML IV SCH (13:11)
--- NOTE | 2019-04-13 14:41 | Family Medicine Progress Note ---
Date of Service April 13, 2019 Assessment & Plan (1) Acute GI bleedin-year-old female was readmitted on 10 Apr 2019 from [facility] due to melena. Of note, she was an inpatient from March 10 to March 21 for infective endocarditis amongst other issues and again from March 25- for hypoxemic respiratory failure. Acute (GI bleed) on chronic anemia: About two days of worsening melena prior to admit. Multiple transfusions since late February and 1 unit PRBCs on this admit. Held her xarelto (on it for afib). On protonix drip. 28May underwent upper GI and now s/p cautery to four bleeding duodenal angioectasias. 29May received additional 1 unit PRBCs for Hb persisting in 7s. - Will need routine CBC checks on discharge. May need iron supplementation as well. 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 Most recently seen on 15May TTE with mitral and aortic valve masses. EF 55-60%. Continuing ampicillin and ceftriaxone through . Acute on chronic hypoxic respiratory failure: In setting of acute blood loss. Historically intolerant of inhalers. On previous admit, periods of hypoxia thought to be mixed picture between pneumonia and pulmonary edema. Continued on home Lasix 60 mg daily. Albuterol and supplemental oxygen (including CPA P/BiPAP) as needed. Elevated alk phos: Admit AP 232. AST, ALT, and total bilirubin normal. 26May CT a/p with IV contrast noted some gallbladder sludge and stones without thickening. GGT 122. Does not complain of any abdominal symptoms. May also be bone / arthritis related. Prior aspiration pneumonia: Prior video swallow on 16May noted moderate to severe pharyngeal stage dysphagia along with occasional silent aspiration. Dietary precautions here. Ongoing medical issues: - History of lung cancer s/p right lower lobe lobectomy in 2017 and chemotherapy. - Hypertension: Continue home diltiazem, losartan, potassium. - Paroxysmal atrial fibrillation: Continue diltiazem. --- Plan to restart Xarelto on Thursday, per GI recommendations. - Rheumatoid arthritis: Not presently on any DMARDs. - Anxiety: Continue home Xanax. - Spinal discitis: T11-T12 as well as L3-L4. Seen by orthopedics on a previous admission, no surgical intervention recommended at that time. Has some ongoing back pain, so continue home tramadol. - Left psoas abscess: As seen on prior admission, 1 cm, asymptomatic. Treated with IV antibiotics. - Cognitive impairment: Concerns for same / dementia on prior admissions. MRI of her brain was negative for septic emboli. - ? possible myelodysplasia: Report that peripheral smear on suggested possible myelodysplasia. Code status: DO NOT RESUSCITATE. Diet: Regular diet with caveats Low sodium, thick liquids, no straws, aspiration precautions. DVT prophy: Chemical prophylaxis contraindicated during acute anemia. Plan to restart Xarelto on . PT/OT: Recommended return to [facility] for further rehab (but they declined). Disbo: Admitted to med surg. Case management consulted. Recently transferred from [facility]. Normally lives at home. Working on other rehab options (? [facility]). (2) Chronic anemia: (3) Infective endocarditis: (4) Acute and chronic respiratory failure with hypoxia: (5) Elevated alkaline phosphatase level: (6) History of aspiration pneumonia: (7) History of lung cancer: (8) Hypertension: (9) Atrial fibrillation: (10) Rheumatoid arthritis: (11) Anxiety: (12) Discitis of multiple sites of spine: (13) Psoas abscess, left: (14) Cognitive impairment: Supervising Physician Co-Signing Physician Notes I personally examined the patient and verified all swan points of history and exam, discussed case, and agree with decision making with Dr Ramirez. feeling ok. frustrated about not getting back to rehab. discussed does not appear stable/safe for home yet. discussed options. vitals noted, nad, pleasant. breathing unlabored no pallor or icterus. no focal neuro deficits. pleasantly anxious. GI bleed w acute/subacute blood loss anemia due to angioectasia now treated with epi injection of fulgeration - post transfusion. hold anticoagulation for now - can resume cautiously in about five days. will definitely want to follow Hgb closely over time. holding anticoagulation due to above rehab will not take her back. snf once available as she does not yet appear safe for home but seems to be progressing. Subjective Patient continues to state that she is overall very comfortable. She says she is frustrated with the idea able to go and complete her rehabilitation at [facility]. Otherwise, she denies any acute pains or concerns. Notes that she is passing gas, no bowel movement in the past day, but no abdominal pain. Review of Systems Review of Systems: Per HPI as above. Physical Exam Physical Exam: General Appearance: Awake, alert, comfortable in general, NAD. CV: +S1S2 RRR, no murmur. Right chest port accessed. Pulm: Clear to auscultation throughout. On room air. Abdomen: +BS, soft, non-tender, non-distended. Extremities: No pedal edema or calf tenderness. Moving all extremities naturally and easily. Neuro: No gross neuro deficits. Results & Data Vital Signs (Past 12 Hours) Vital Signs Temp Pulse Pulse Resp BP BP Pulse Ox 04/13/19 13:05 36.4 C L 71 20 103/46 L 98 04/13/19 12:05 36.4 C L 64 18 119/69 98 04/13/19 11:05 36.4 C L 67 18 112/67 97 04/13/19 10:35 36.3 C L 70 20 101/62 99 04/13/19 10:20 36.3 C L 68 93/55 L 97 04/13/19 10:01 36.3 C L 65 18 92/55 L 97 04/13/19 07:32 36.7 C 78 16 115/59 L 100 Laboratory Results 04/13/19 04/12/19 04/11/19 Range/Units 05:34 14:59 05:55 Hgb 7.5 L 7.8 L (12.0-16.0) g/dL Hct 21.3 L 22.3 L (37-47) % GGT 122 H (3-65) U/L Blood Type Antibody Screen Crossmatch 04/10/19 Range/Units 10:47 Hgb (12.0-16.0) g/dL Hct (37-47) % GGT (3-65) U/L Blood Type A Positive Antibody Screen NEGATIVE Crossmatch See Detail Medications Administered Current Inpatient Medications Acetaminophen (Tylenol) 650 mg PO Q4 PRN PRN Reason: pain on scale 1-3 Stop: 05/10/19 15:20 Last Admin: 04/13/19 08:22 Dose: 650 mg Documented by: Albuterol (Ventolin 0.083% 2.5mg/3ml) 2.5 mg NEB Q4H PRN PRN Reason: Wheezing Stop: 05/10/19 15:20 Alprazolam (Xanax) 0.5 mg PO DAILY SH[facility]ONA Stop: 05/10/19 15:20 Last Admin: 04/13/19 08:04 Dose: 0.5 mg Documented by: Diltiazem HCl (Cardizem Cd) 240 mg PO DAILY SH[facility]ONA Stop: 05/10/19 15:20 Last Admin: 04/13/19 08:03 Dose: 240 mg Documented by: Furosemide (Lasix) 60 mg PO DAILY SH[facility]ONA Stop: 05/11/19 08:59 Last Admin: 04/13/19 08:04 Dose: 60 mg Documented by: Heparin Sodium (Beef Lung) (Heparin Sod 10 Unit/Ml Flush) 5 ml FLUSH PRN PRN PRN Reason: Flush Stop: 05/12/19 07:55 Pantoprazole Sodium 40 mg/ (Syringe) 10 mls @ 5 mls/min IV BID@0900,2100 [facility] Stop: 05/10/19 20:59 Last Admin: 04/13/19 08:04 Dose: 5 mls/min Documented by: Ceftriaxone Sodium 2,000 mg/ (Dextrose) 70 mls @ 140 mls/hr IV Q12H [facility]; Protocol Stop: 04/24/19 23:59 Last Infusion: 04/13/19 06:59 Dose: Infused Documented by: Ampicillin Sodium 2,000 mg/ (Sodium Chloride) 100 mls @ 200 mls/hr IV Q6H [facility]; Protocol Stop: 04/24/19 23:59 Last Infusion: 04/13/19 13:38 Dose: Infused Documented by: Lactated Ringer's (Lr) 1,000 mls @ 75 mls/hr IV .[id number] [facility] Stop: 05/11/19 10:44 Last Admin: 04/13/19 13:11 Dose: 75 mls/hr Documented by: Sodium Chloride (Nss) 250 mls @ 15 mls/hr IV .[id number] PRN PRN Reason: For Transfusion Stop: 05/13/19 08:46 Ioversol (Optiray 320 100ml) 95 ml IV ONCE PRN PRN Reason: Interaction Checking Stop: 04/14/19 11:59 Last Admin: 04/10/19 12:00 Dose: 95 ml Documented by: Lactobacillus Acidophilus (Floranex) 4 tab PO TIDM [facility] Stop: 05/10/19 16:59 Last Admin: 04/13/19 13:08 Dose: 4 tab Documented by: Losartan Potassium (Cozaar) 150 mg PO DAILY [facility] Stop: 05/10/19 15:20 Last Admin: 04/13/19 08:03 Dose: 150 mg Documented by: Miscellaneous (Remove Nicoderm Patch) 1 ea N/A HS [facility] Stop: 05/10/19 20:59 Last Admin: 04/12/19 20:21 Dose: Not Given Documented by: Nicotine (Nicoderm Cq) 21 mg TD QAM PRN PRN Reason: nicotine craving Stop: 05/10/19 15:20 Potassium Chloride (Klor-Con M10) 10 meq PO BID [facility] Stop: 05/10/19 20:59 Last Admin: 04/13/19 08:03 Dose: 10 meq Documented by: Sucralfate (Carafate) 1 gm PO QID [facility] Stop: 05/11/19 16:59 Last Admin: 04/13/19 13:08 Dose: 1 gm Documented by: Tramadol HCl (Ultram) 50 mg PO Q4H PRN PRN Reason: pain Stop: 05/10/19 15:20 Resident Activity Tracking Resident Involvement: Resident Care Provided Care Provided: Adult Hospital Medicine (1) Rheumatoid arthritis Rheumatoid arthritis location: unspecified site Rheumatoid factor presence: unspecified presence Qualified Code(s): M06.9 - Rheumatoid arthritis, unspec ified (2) Infective endocarditis Chronicity: acute Infective endocarditis organism: bacterial Qualified Code(s): I33.0 - Acute and subacute infective endocarditis (3) Atrial fibrillation Atrial fibrillation type: unspecified Qualified Code(s): I48.91 - Unspecified atrial fibrillation
[2019-04-14] MEDS: AMPICILLIN 2,000 MG in SODIUM CHLOR 0.9% AD-VAN 100 ML IV SCH ×4 (01:04→19:13)
[2019-04-14] MEDS: LACTATED RINGER'S 1,000 ML IV SCH (01:24)
[2019-04-14 05:57] LABS: Basophils # (auto) 0.02 K/uL (0-0.2); Basophils % (auto) 0.4 %; Eosinophils # (auto) 0.59 K/uL (0-0.5); Eosinophils % (auto) 10.5 %; Hematocrit (blood only) 28.4 % (37-47); Hemoglobin 9.6 g/dL (12.0-16.0); Immature Granulocytes # (auto) 0.01 K/uL (0.00-0.02); Immature Granulocytes % (auto) 0.2 %; Lymphocytes # (auto) 0.69 K/uL (1.2-3.4); Lymphocytes % (auto) 12.3 %; Mean Corpuscular Hgb Conc 33.8 g/dL (32-36); Mean Platelet Volume 9.4 fL (7.4-10.4); Monocytes # (auto) 0.56 K/uL (0.11-0.59); Neutrophils # (auto) 3.75 K/uL (1.4-6.5); Neutrophils % (auto) 66.6 %; Platelet Count 178 K/uL (130-400); RDW Coefficient of Variation 21.4 % (11.5-14.5); RDW Standard Deviation 61.3 fL (36.4-46.3); Red Blood Count 3.38 M/uL (4.2-5.4); White Blood Count 5.62 K/uL (4.8-10.8)
[2019-04-14 06:29] LABS: Anisocytosis Present; Schistocytes Occasional; Spherocytes Occasional
[2019-04-14 06:41] LABS: BUN Creatinine Ratio 12.5 (10-20); Calcium 7.4 mg/dl (8.5-10.1); Est GFR (African American) 65.1; Est GFR (Non-African American) 56.1
[2019-04-14] MEDS: ALPRAZolam 0.5 MG TABLET PO SCH (07:53)
[2019-04-14] MEDS: cefTRIAXone SODIUM 2,000 MG in DEXTROSE 5% 50 ML IV SCH ×2 (07:53→18:15)
[2019-04-14] MEDS: LOSARTAN POTASSIUM 50 MG TAB PO SCH (07:54)
[2019-04-14] MEDS: dilTIAZem HCL 240 MG CAPCR PO SCH (07:54)
[2019-04-14] MEDS: LACTOBACILLUS ACIDOPHILUS (FLORANEX) TAB PO SCH ×3 (07:55→16:57)
[2019-04-14] MEDS: SUCRALFATE 1 GM/10 ML UDC PO SCH ×4 (07:56→21:02)
[2019-04-14] MEDS: FUROSEMIDE 20 MG TAB PO SCH (07:57)
[2019-04-14] MEDS: POTASSIUM CHLORIDE 10 MEQ TABCR PO SCH ×3 (08:35→21:01)
[2019-04-14] MEDS: PANTOprazole 40 MG TAB PO SCH ×2 (08:35→21:01)
[2019-04-14] MEDS ORDERED: CALCIUM CARBONATE 500 MG CHEWABLE TAB PO ONE (09:00)
--- NOTE | 2019-04-14 10:09 | Gastroenterology Progress Note ---
Date of Service April 14, 2019 Assessment & Plan (1) AVM (arteriovenous malformation) of small bowel, acquired with hemorrhage: 1. Continue Protonix 40 mg BID. 2. Despite heme positivity this morning, H&H has improved. Would recommend continued supportive management at this time. Subjective Patient reports passing a dark stool this morning. This was tested and found to be heme positive. The patient's H&H from this morning, however, demonstrated significant improvement and was 9.6 and 28.4%. Hemoglobin was 7.5 yesterday. She denies any abdominal pain, nausea or vomiting or other complaints. She reports desire for discharge. Continues BID PPI. Review of Systems Respiratory: no problem reported Cardiovascular: no problem reported Gastrointestinal: no problem reported Physical Exam Constitutional: WD/WN, vitals as above Respiratory: normal respiratory effort, lungs clear to auscultation Cardiovascular: Rate/Rhythm: regular rate and regular rhythm Gastrointestinal (Abdomen): Inspection/Auscultation: normal bowel sounds Percussion/Palpation: abdomen soft; abdomen nontender Psychiatric: Orientation: alert and oriented x 3 Results & Data Vital Signs (Past 12 Hours) Vital Signs Temp Pulse Resp BP BP Pulse Ox 04/14/19 07:46 36.7 C 75 16 154/67 H 96 04/14/19 06:35 36.4 C L 76 16 156/68 H 93 04/13/19 23:31 36.6 C 74 18 108/63 97 Laboratory Results Abnormal lab results 04/10/19 04/14/19 04/14/19 Range/Units 10:47 05:35 05:35 RBC 3.38 L (4.2-5.4) M/uL Hgb 9.6 L (12.0-16.0) g/dL Hct 28.4 L (37-47) % RDW Std Deviation 61.3 H (36.4-46.3) fL RDW Coeff of Jose 21.4 H (11.5-14.5) % Lymph # (Auto) 0.69 L (1.2-3.4) K/uL Eos # (Auto) 0.59 H (0-0.5) K/uL Potassium 3.0 L (3.5-5.1) mmol/L Calcium 7.4 L (8.5-10.1) mg/dl Stool Occult Bld Scrn (Negative) Crossmatch See Detail 04/14/19 Range/Units 05:45 RBC (4.2-5.4) M/uL Hgb (12.0-16.0) g/dL Hct (37-47) % RDW Std Deviation (36.4-46.3) fL RDW Coeff of Jose (11.5-14.5) % Lymph # (Auto) (1.2-3.4) K/uL Eos # (Auto) (0-0.5) K/uL Potassium (3.5-5.1) mmol/L Calcium (8.5-10.1) mg/dl Stool Occult Bld Scrn Positive A (Negative) Crossmatch
[2019-04-14] MEDS ORDERED: ERGOCALCIFEROL 50,000 UNITS CAP PO SCH (11:00)
--- NOTE | 2019-04-14 12:14 | Family Medicine Progress Note ---
Date of Service April 14, 2019 Assessment & Plan (1) Acute GI bleedin-year-old female was readmitted on 10 Apr 2019 from [facility] due to melena. Of note, she was an inpatient from March 10 to March 21 for infective endocarditis amongst other issues and again from March 25- for hypoxemic respiratory failure. Acute (GI bleed) on chronic anemia: About two days of worsening melena prior to admit. Multiple transfusions since late February and 2 units PRBCs thus far on this admit. Held her xarelto (on it for afib). On protonix 40 mg BID. 28May underwent upper GI and now s/p cautery to four bleeding duodenal angioectasias. 30May Hb 9.6. - Will need routine CBC checks on discharge. May need iron supplementation as well. 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 Most recently seen on 15May TTE with mitral and aortic valve masses. EF 55-60%. C ontinuing ampicillin and ceftriaxone through . Acute on chronic hypoxic respiratory failure: In setting of acute blood loss. Historically intolerant of inhalers. On previous admit, periods of hypoxia thought to be mixed picture between pneumonia and pulmonary edema. Continued on home Lasix 60 mg daily. Albuterol and supplemental oxygen (including CPAP/BiPAP) as needed. Elevated alk phos: Admit AP 232. AST, ALT, and total bilirubin normal. 26May CT a/p with IV contrast noted some gallbladder sludge and stones without thickening. GGT 122. Does not complain of any abdominal symptoms. May also be bone / arthritis related. Prior aspiration pneumonia: Prior video swallow on 16May noted moderate to severe pharyngeal stage dysphagia along with occasional silent aspiration. Dietary precautions here. Hypokalemia: As low as K 3.0. Replaced. Is also on routine KCl supplementation, but increased it to 20 mEq BID. Monitoring. Hypocalcemia: As low as Ca 7.4. Replaced, monitoring. Added Vitamin D2 and D3 supplementation. Ongoing medical issues: - History of lung cancer s/p right lower lobe lobectomy in 2017 and chemotherapy. - Hypertension: Continue home diltiazem, losartan, potassium. - Paroxysmal atrial fibrillation: Continue diltiazem. --- Plan to restart Xarelto on Thursday, per GI recommendations. - Rheumatoid arthritis: Not presently on any DMARDs. - Anxiety: Continue home Xanax. - Spinal discitis: T11-T12 as well as L3-L4. Seen by orthopedics on a previous admission, no surgical intervention recommended at that time. Has some ongoing back pain, so continue home tramadol. - Left psoas abscess: As seen on prior admission, 1 cm, asymptomatic. Treated with IV antibiotics. - Cognitive impairment: Concerns for same / dementia on prior admissions. [id number] MRI of her brain was negative for septic emboli. - ? possible myelodysplasia: Report that peripheral smear on 18Feb suggested possible myelodysplasia. Code status: DO NOT RESUSCITATE. Diet: Regular diet with caveats Low sodium, thick liquids, no straws, aspiration precautions. DVT prophy: Chemical prophylaxis contraindicated during acute anemia. Plan to restart Xarelto on . PT/OT: Recommended return to [facility] for further rehab (but they declined). Disbo: Admitted to med surg. Case management consulted. Recently transferred from [facility]. Normally lives at home. Working on rehab options (? [facility]). (2) Chronic anemia: (3) Infective endocarditis: (4) Acute and chronic respiratory failure with hypoxia: (5) Elevated alkaline phosphatase level: (6) History of aspiration pneumonia: (7) History of lung cancer: (8) Hypertension: (9) Atrial fibrillation: (10) Rheumatoid arthritis: (11) Anxiety: (12) Discitis of multiple sites of spine: (13) Psoas abscess, left: (14) Cognitive impairment: (15) Hypokalemia: (16) Hypocalcemia: Supervising Physician Co-Signing Physician Notes I personally examined the patient and verified all swan points of history and exam, discussed case, and agree with decision making with Dr Ramirez. Had bloody stools earlier but otherwise feeling okay. Was first told that [facility] would be willing to accept her, and later told they changed her mind. Case management still working on SNF placement vitals noted, nad, pleasant. breathing unlabored no pallor or icterus. no focal neuro deficits. pleasantly anxious. GI bleed w acute/subacute blood loss anemia due to angioectasia now treated with epi injection of fulgeration - post transfusion. hold anticoagulation for now - can resume cautiously in about five daysAs long as she continues to appear stable. Today's bleeding is likely old blood given her overall stability, but definitely will need to continue to follow hemoglobin to ensure she does not have telangiectasias at a different site as well. holding anticoagulation due to above rehab will not take her back. snf once available as she does not yet appear safe for home but seems to be progressing. Subjective Found patient sitting in her bedside chair. She did note that she had a bloody bowel movement earlier this morning but denied any concurrent symptoms to include any abdominal pain, dizziness, or other immediate concerns. Review of Systems Review of Systems: Per HPI as above. Physical Exam Physical Exam: General Appearance: Awake, alert, comfortable in general, NAD. CV: +S1S2 RRR, no murmur. Right chest port accessed. Pulm: Clear to auscultation throughout. On room air. Abdomen: +BS, soft, non-tender, non-distended. Extremities: No pedal edema or calf tenderness. Moving all extremities naturally and easily. Neuro: No gross neuro deficits. Results & Data Vital Signs (Past 12 Hours) Vital Signs Temp Pulse Resp BP BP Pulse Ox 04/14/19 07:46 36.7 C 75 16 154/67 H 96 04/14/19 06:35 36.4 C L 76 16 156/68 H 93 Laboratory Results 04/14/19 04/14/19 04/14/19 Range/Units 11:54 05:45 05:35 WBC (4.8-10.8) K/uL RBC (4.2-5.4) M/uL Hgb 10.0 L (12.0-16.0) g/dL Hct (37-47) % MCV (80-100) fL MCH (25-34) pg MCHC (32-36) g/dL RDW Std Deviation (36.4-46.3) fL RDW Coeff of Jose (11.5-14.5) % Plt Count (130-400) K/uL MPV (7.4-10.4) fL Immature Gran % (Auto) % Neut % (Auto) % Lymph % (Auto) % [place] % (Auto) % Eos % (Auto) % Baso % (Auto) % Immature Gran # (Auto) (0.00-0.02) K/uL Neut # (Auto) (1.4-6.5) K/uL Lymph # (Auto) (1.2-3.4) K/uL [place] # (Auto) (0.11-0.59) K/uL Eos # (Auto) (0-0.5) K/uL Baso # (Auto) (0-0.2) K/uL Anisocytosis Spherocytes Schistocytes Sodium 141 (136-145) mmol/L Potassium 3.0 L (3.5-5.1) mmol/L Chloride 105 (98-107) mmol/L Carbon Dioxide 31 (21-32) mmol/L Anion Gap 5.0 (3-11) BUN 12 (7-18) mg/dl Creatinine 0.99 (0.6-1.2) mg/dl Est Cr Clr Drug Dosing 34.0 ml/min Est GFR ( Amer) 65.1 Est GFR (Non-Af Amer) 56.1 BUN/Creatinine Ratio 12.5 (10-20) Glucose 80 (70-99) mg/dl Calcium 7.4 L (8.5-10.1) mg/dl Stool Occult Bld Scrn Positive A (Negative) 04/14/19 Range/Units 05:35 WBC 5.62 (4.8-10.8) K/uL RBC 3.38 L (4.2-5.4) M/uL Hgb 9.6 L (12.0-16.0) g/dL Hct 28.4 L (37-47) % MCV 84.0 (80-100) fL MCH 28.4 (25-34) pg MCHC 33.8 (32-36) g/dL RDW Std Deviation 61.3 H (36.4-46.3) fL RDW Coeff of Jose 21.4 H (11.5-14.5) % Plt Count 178 (130-400) K/uL MPV 9.4 (7.4-10.4) fL Immature Gran % (Auto) 0.2 % Neut % (Auto) 66.6 % Lymph % (Auto) 12.3 % [place] % (Auto) 10.0 % Eos % (Auto) 10.5 % Baso % (Auto) 0.4 % Immature Gran # (Auto) 0.01 (0.00-0.02) K/uL Neut # (Auto) 3.75 (1.4-6.5) K/uL Lymph # (Auto) 0.69 L (1.2-3.4) K/uL [place] # (Auto) 0.56 (0.11-0.59) K/uL Eos # (Auto) 0.59 H (0-0.5) K/uL Baso # (Auto) 0.02 (0-0.2) K/uL Anisocytosis Present Spherocytes Occasional Schistocytes Occasional Sodium (136-145) mmol/L Potassium (3.5-5.1) mmol/L Chloride (98-107) mmol/L Carbon Dioxide (21-32) mmol/L Anion Gap (3-11) BUN (7-18) mg/dl Creatinine (0.6-1.2) mg/dl Est Cr Clr Drug Dosing ml/min Est GFR ( Amer) Est GFR (Non-Af Amer) BUN/Creatinine Ratio (10-20) Glucose (70-99) mg/dl Calcium (8.5-10.1) mg/dl Stool Occult Bld Scrn (Negative) Medications Administered Current Inpatient Medications Acetaminophen (Tylenol) 650 mg PO Q4 PRN PRN Reason: pain on scale 1-3 Stop: 05/10/19 15:20 Last Admin: 04/14/19 17:07 Dose: 650 mg Documented by: Albuterol (Ventolin 0.083% 2.5mg/3ml) 2.5 mg NEB Q4H PRN PRN Reason: Wheezing Stop: 05/10/19 15:20 Alprazolam (Xanax) 0.5 mg PO DAILY [facility] Stop: 05/10/19 15:20 Last Admin: 04/14/19 07:53 Dose: 0.5 mg Documented by: Diltiazem HCl (Cardizem Cd) 240 mg PO DAILY [facility] Stop: 05/10/19 15:20 Last Admin: 04/14/19 07:54 Dose: 240 mg Documented by: Ergocalciferol (Vitamin D2) 50,000 units PO Q7D@0900 [facility] Stop: 05/14/19 10:59 Last Admin: 04/14/19 12:15 Dose: 50,000 units Documented by: Furosemide (Lasix) 60 mg PO DAILY [facility] Stop: 05/11/19 08:59 Last Admin: 04/14/19 07:57 Dose: 60 mg Documented by: Heparin Sodium (Porcine) (Heparin Sod 100 Unit/Ml Flush) 5 ml FLUSH PRN PRN PRN Reason: Flush Stop: 05/14/19 15:13 Ceftriaxone Sodium 2,000 mg/ (Dextrose) 70 mls @ 140 mls/hr IV Q12H [facility]; Protocol Stop: 04/24/19 23:59 Last Infusion: 04/14/19 10:09 Dose: Infused Documented by: Ampicillin Sodium 2,000 mg/ (Sodium Chloride) 100 mls @ 200 mls/hr IV Q6H [facility]; Protocol Stop: 04/24/19 23:59 Last Infusion: 04/14/19 12:49 Dose: Infused Documented by: Sodium Chloride (Nss) 250 mls @ 15 mls/hr IV .[id number] PRN PRN Reason: For Transfusion Stop: 05/13/19 08:46 Lactobacillus Acidophilus (Floranex) 4 tab PO TIDM [facility] Stop: 05/10/19 16:59 Last Admin: 04/14/19 16:57 Dose: 4 tab Documented by: Losartan Potassium (Cozaar) 150 mg PO DAILY [facility] Stop: 05/10/19 15:20 Last Admin: 04/14/19 07:54 Dose: 150 mg Documented by: Miscellaneous (Remove Nicoderm Patch) 1 ea N/A HS [facility] Stop: 05/10/19 20:59 Last Admin: 04/13/19 21:36 Dose: Not Given Documented by: Nicotine (Nicoderm Cq) 21 mg TD QAM PRN PRN Reason: nicotine craving Stop: 05/10/19 15:20 Pantoprazole Sodium (Protonix) 40 mg PO BID [facility] Stop: 05/14/19 08:59 Last Admin: 04/14/19 08:35 Dose: 40 mg Documented by: Potassium Chloride (Klor-Con M10) 40 meq PO BID [facility] Stop: 04/14/19 21:01 Last Admin: 04/14/19 08:35 Dose: 40 meq Documented by: Potassium Chloride (Klor-Con M10) 20 meq PO BID [facility] Stop: 05/15/19 08:59 Sucralfate (Carafate) 1 gm PO QID [facility] Stop: 05/11/19 16:59 Last Admin: 04/14/19 16:57 Dose: 1 gm Documented by: Tramadol HCl (Ultram) 50 mg PO Q4H PRN PRN Reason: pain Stop: 05/10/19 15:20 Vitamin D (Vitamin D3) 2,000 units PO QAM [facility] Stop: 05/14/19 10:59 Last Admin: 04/14/19 12:15 Dose: 2,000 units Documented by: Resident Activity Tracking Resident Involvement: Resident Care Provided Care Provided: Adult Hospital Medicine (1) Rheumatoid arthritis Rheumatoid arthritis location: unspecified site Rheumatoid factor presence: unspecified presence Qualified Code(s): M06.9 - Rheumatoid arthritis, unspecified (2) Infective endocarditis Chronicity: acute Infective endocarditis organism: bacterial Qualified Code(s): I33.0 - Acute and subacute infective endocarditis (3) Atrial fibrillation Atrial fibrillation type: unspecified Qualified Code(s): I48.91 - Unspecified atrial fibrillation
[2019-04-14] MEDS: CHOLECALCIFEROL 1,000 UNITS TAB PO SCH (12:15)
[2019-04-14] MEDS: ACETAMINOPHEN 325 MG TAB PO PRN (17:07)
[2019-04-14] MEDS: HEPARIN 100 UNIT/ML 5ML FLUSH FLUSH PRN (19:49)
[2019-04-15] MEDS: AMPICILLIN 2,000 MG in SODIUM CHLOR 0.9% AD-VAN 100 ML IV SCH ×4 (01:13→18:32)
[2019-04-15] MEDS: HEPARIN 100 UNIT/ML 5ML FLUSH FLUSH PRN (01:42)
[2019-04-15 06:24] LABS: Hematocrit (blood only) 29.6 % (37-47); Hemoglobin 9.7 g/dL (12.0-16.0)
[2019-04-15 07:01] LABS: BUN Creatinine Ratio 11.9 (10-20); Calcium 7.7 mg/dl (8.5-10.1); Creatinine Clr Calc Pharmacy 37.8 ml/min; Est GFR (Non-African American) 63.8; Potassium 3.5 mmol/L (3.5-5.1)
[2019-04-15] MEDS: cefTRIAXone SODIUM 2,000 MG in DEXTROSE 5% 50 ML IV SCH ×2 (07:06→19:01)
[2019-04-15] MEDS: LOSARTAN POTASSIUM 50 MG TAB PO SCH (07:50)
[2019-04-15] MEDS: LACTOBACILLUS ACIDOPHILUS (FLORANEX) TAB PO SCH ×3 (07:50→18:20)
[2019-04-15] MEDS: FUROSEMIDE 20 MG TAB PO SCH (07:51)
[2019-04-15] MEDS: SUCRALFATE 1 GM/10 ML UDC PO SCH ×4 (07:51→21:46)
[2019-04-15] MEDS: PANTOprazole 40 MG TAB PO SCH ×2 (07:51→21:46)
[2019-04-15] MEDS: CHOLECALCIFEROL 1,000 UNITS TAB PO SCH (07:52)
[2019-04-15] MEDS: dilTIAZem HCL 240 MG CAPCR PO SCH (07:52)
[2019-04-15] MEDS: POTASSIUM CHLORIDE 20 MEQ TABCR PO SCH ×2 (07:53→21:46)
[2019-04-15] MEDS: ALPRAZolam 0.5 MG TABLET PO SCH (07:56)
[2019-04-15] MEDS: ACETAMINOPHEN 325 MG TAB PO PRN ×2 (07:56→18:20)
--- NOTE | 2019-04-15 11:28 | Discharge Summary ---
Date of Service 04/16/19 Admission HPI Per Admitting Provider 74-year-old female with PMH infective endocarditis, left lung cancer, RA, PAF on xarelto, smoker, HTN, discitis who was brought to the emergency department by EMS from [facility] due to melena early this morning. Of note, the patient was an inpatient from March 10 to March 21 for infective endocarditis amongst other issues. She was discharged to [facility]. She was then readmitted 10May - 19May for hypoxemic respiratory failure and was noted to have anemia then and plan for EGD to be done once endocarditis treatment completed on April 24. ED Course: Hgb/Hct on presentation was noted to be 6.2/18.4, and stool guaiac positive. She is currently receiving 2 units PRBCs in ED, and one bolus of protonix IV. Mild hypoxia noted, nasal cannula applied and is 98% on 2L. Other notable labs include: elevated alk phos 232. CT a/p notable for GB sludge with small stones, improving airspace opacities in lower lungs, no bowel wall thickening or obstruction, no change in T11-T12/L3-L4 discitis. --- Past medical history includes left lung cancer, rheumatoid arthritis, paroxysmal atrial fibrillation, smoker, hypertension, spinal discitis. --- Past surgical history includes left lower lobe lobectomy in 2017. --- Social history includes current smoker of up to 1 pack/day. Denies alcohol use. Usually lives at home alone. Currently residing at [facility]. Admission Exam Per Admitting Provider Vitals noted as above and within normal limits with the exception of hypertension. GENERAL: Awake, alert, nontoxic-appearing, in no distress. + pallor HENT: Normocephalic, atraumatic. Nasal cannula in place. Mucus membranes appear moist. EYES: Normal conjunctiva. Sclera non-icteric. EOMI. NECK: Supple. Full range of motion. RESPIRATORY: Clear to auscultation. Normal work of breathing. CHEST: + vascular access device or port (right anterior chest wall, in tact ) CARDIAC: Regular rate, normal rhythm. No murmurs rubs or gallops. ABDOMEN: Soft, non-distended. No tenderness to palpation in all four quadrants. No rebound or guarding. No masses. Bowel sounds are normal. NEURO: No focal gross focal motor deficits noted. Sensation in tact. CN II-XII grossly in tact. SKIN: Rash not present. No jaundice noted. Significant lesions not present. PSYCH: Appropriate mood and affect. Cooperative. Principal Diagnosis Acute GI bleed, acute on chronic anemia Discharge Exam General Appearance: Awake, alert, comfortable in general, NAD. CV: +S1S2 RRR, no murmur. Right chest port accessed. Pulm: Clear to auscultation throughout. On room air. Abdomen: +BS, soft, non-tender, non-distended. Extremities: No pedal edema or calf tenderness. Moving all extremities naturally and easily. Neuro: No gross neuro deficits. Discharge Data Allergies Allergy/AdvReac Type Severity Reaction Status Date / Time No Known Allergies Allergy Verified 04/10/19 12:10 Consultations Gastroenterology progress note on 14 Apr 2019 AVM (arteriovenous malformation) of small bowel, acquired with hemorrhage: 1. Continue Protonix 40 mg BID. 2. Despite heme positivity this morning, H&H has improved. Would recommend continued supportive management at this time. Procedures Performed Operation Date: 04/12/19 08:30 Actual Procedures p EGD Hemostasis - Raad Woodson Case, DO Upper GI endoscopy on 12 Apr 2019 Please see full report. In brief: - Impression: Normal esophagus, small hiatal hernia, four bleeding angiectasias in the duodenum. Injected. Treated with bipolar cautery. No specimens collected. - Recommendation: Continue present medications. Repeat upper endoscopy as needed for retreatment. Ordered Studies CT abdomen and pelvis with IV contrast on 10 Apr 2019 IMPRESSION: 1. The gallbladder is filled with sludge and a few small stones. No gallbladder wall thickening. However, there is pericholecystic fluid. This could be due to a diffuse edematous state or developing acute cholecystitis. Follow-up HIDA scan or ultrasound recommended as well as clinical correlation. 2. Small bilateral pleural effusions. 3. Patchy bibasilar airspace opacities have improved. 4. No bowel wall thickening or obstruction. 5. Normal appendix. 6. No change in the T11-T12 and L3-L4 discitis/osteomyelitis. Hospital Course (1) Acute GI ble[age]-year-old female was readmitted on 10 Apr 2019 from [facility] due to melena. Of note, she was an inpatient from March 10 to March 21 for infective endocarditis amongst other issues and again from March 25- for hypoxemic respiratory failure. Acute (GI bleed) on chronic anemia: About two days of worsening melena prior to admit. Multiple transfusions since late February and 2 units PRBCs on this admit. Held her xarelto as inpatient (on it for afib). On protonix 40 mg PO BID as well as Carafate. 28May underwent upper GI and now s/p cautery to four bleeding duodenal angioectasias. Hb has been stable. Has had some ongoing melena, but with stable vitals and hemoglobin, it is clear that this has been old blood. Certainly if she were to become pale, tachycardic, or any other worrisome signs or symptoms, certainly repeat hemoglobin sooner, but otherwise as below. - Recommend CBC this coming Thursday and Thursday (April 19 & ). - May need iron supplementation as well. Ongoing infective endocarditis: Thought to be due from infected port, most recently imaged on 15May TTE with mitral and aortic valve masses. EF 55-60%. Continuing ampicillin and ceftriaxone through . Acute on chronic hypoxic respiratory failure: In setting of acute blood loss. Historically intolerant of inhalers. On previous admit, periods of hypoxia thought to be mixed picture between pneumonia and pulmonary edema. Continued on home Lasix 60 mg daily. Albuterol and supplemental oxygen (including CPAP/BiPAP) as needed. Elevated alk phos: Admit AP 232. AST, ALT, and total bilirubin normal. 26May CT a/p with IV contrast noted some gallbladder sludge and stones without thickening. GGT 122. Does not complain of any abdominal symptoms. May also be bone / arthritis related. Prior aspiration pneumonia: Prior video swallow on 16May noted moderate to severe pharyngeal stage dysphagia along with occasional silent aspiration. Dietary precautions in place. Hypokalemia: As low as K 3.0, replaced. Is also on routine KCl supplementation, but increased it to 20 mEq BID. Monitoring. Hypocalcemia: As low as Ca 7.4. Replaced, monitoring. Added Vitamin D2 and D3 supplementation. Ongoing medical issues: - History of lung cancer s/p right lower lobe lobectomy in 2017 and chemotherapy. - Hypertension: Continue home diltiazem, losartan, potassium. - Paroxysmal atrial fibrillation: Continue diltiazem. --- Plan to restart Xarelto 20 mg q PM on Thursday, 03Jun per GI recommendations. - Rheumatoid arthritis: Not presently on any DMARDs. - Anxiety: Continue home Xanax. - Spinal discitis: T11-T12 as well as L3-L4. Seen by orthopedics on a previous admission, no surgical intervention recommended at that time. Has some ongoing back pain, so continue home tramadol. - Left psoas abscess: As seen on prior admission, 1 cm, asymptomatic. Treated with IV antibiotics. - Cognitive impairment: Concerns for same / dementia on prior admissions. MRI of her brain was negative for septic emboli. - ? possible myelodysplasia: Report that peripheral smear on 18Feb suggested possible myelodysplasia. Code status: DO NOT RESUSCITATE. Diet: Regular diet with caveats Low sodium, thick liquids, no straws, aspiration precautions. (2) Chronic anemia: (3) Infective endocarditis: (4) Acute and chronic respiratory failure with hypoxia: (5) Elevated alkaline phosphatase level: (6) History of aspiration pneumonia: (7) History of lung cancer: (8) Hypertension: (9) Atrial fibrillation: (10) Rheumatoid arthritis: (11) Anxiety: (12) Discitis of multiple sites of spine: (13) Psoas abscess, left: (14) Cognitive impairment: (15) Hypokalemia: (16) Hypocalcemia: Total Time Total Time Spent Total Time Spent (In Minutes): < 30 min Discharge Plan Discharge Items Patient Disposition: Transfer Inpatient Rehab Fac Reason For Visit: GIB, ACUTE BLOOD LOSS Discharge Diagnosis: Acute GI bleed, anemia Discharge Goals: Decrease discomfort and Increase independence Activity: Per 'Additional Instructions' section Non-emergency contact: Primary Care Provider Call non-emergency contact if: you have any medication questions Follow-up/Referrals: [facility] [Primary Care Provider] - Diet: Regular and Low Sodium (2gm) Liquid Consistency: [place] thick Diet Comment: No straws. Addtl Provider Instructions: You were admitted to the hospital on April 10, 2019 due to bloody bowel movements. While in the hospital we evaluated the following issues: Acute gastrointestinal bleed with chronic anemia: You are seen by the filer finish here and, after an upper endoscopy noted to have a couple of areas in your intestine (duodenum) that were bleeding. These areas were cauterized. Since that time your blood counts have been more stable, but you remain anemic (with low red blood cell counts). During this hospitalization received two units of blood. This is in addition to the multiple units of blood you received on previous admissions. You were also started on two medications, pantoprazole and Carafate. - It remains very important that you follow-up with your rehabilitation medical team as well as your primary care provider for ongoing anemia lab work checks. - Please continue to monitor for any new evidence of bleeding, for which you should be seen in the hospital as soon as possible. - You have been having some dark stools over the last few days - this appears to be old blood that is still passing through your intestines - despite having dark stools, your blood counts have been completely stable since the transfusion. As long as you are not pale or dizzy, and as long as your heart rate and blood pressure appear stable, we would recommend having blood counts checked if there is concern on your stools before being sent back to the ER. We are more than happy to take care of you if things were to truly worsen, but we would love to save you the turmoil of being sent back to the ER for what would amount to old blood from bleeding that has stopped. Atrial fibrillation on blood thinners: Because of your bleeding is discussed above, the gastroenterology team recommended that you restart your Xarelto on Thursday, April 18. Blood counts again on Thursday would be most appropriate. Ongoing infective endocarditis: As has been discussed in your previous admissions, you should continue your ampicillin and ceftriaxone antibiotics through April 24. Acute on chronic respiratory failure: Also as noted on previous admissions, at times you do need some supplemental oxygen. Please work with your rehabilitation medical team to see if you can come off of oxygen. Otherwise you may need it for home use. Low potassium levels: At times your potassium was noted to be quite low. We replaced it here and recommend that you increase your home potassium replacement dosing up to 20 mEq twice a day. A new prescription for this was written. Overall, the new prescriptions from this visit are an increase in your potassium regimen as well as new Carafate, protonix, and Vitamins D2 and D3. Please work with your rehabilitation team as well as your primary care provider for close post-hospitalization continuity of care. Please return to the emergency department if you develop any new rectal bleeding, abdominal pain, dizziness or chest pain or shortness of breath, or with any other emergent concerns. Prescriptions: New potassium chloride [Klor-Con M20] 20 mEq Tablet,Er Particles/Crystals 20 meq PO BID 30 Days Qty: 60 RF: 0 sucralfate 100 mg/mL Suspension 10 ml PO QID 14 Days Qty: 560 RF: 0 pantoprazole 40 mg Tablet,Delayed Release (Dr/Ec) 40 mg PO BID 30 Days Qty: 60 RF: 0 cholecalciferol (vitamin D3) 1,000 unit tablet,chewable 1,000 units PO DAILY Qty: 30 RF: 0 ergocalciferol (vitamin D2) [Vitamin D2] 50,000 unit Capsule 50,000 unit PO Q7D@0900 28 Days Qty: 4 RF: 0 Continued bisacodyl 10 mg Suppository 10 mg HI DAILY PRN (Reason: Constipation) RF: 0 Fleet Enema 19-7 gram/118 mL Enema 118 ml HI DAILY PRN (Reason: Constipation) RF: 0 magnesium hydroxide 2,400 mg/10 mL Suspension 30 ml PO DAILY PRN (Reason: Constipation) RF: 0 alprazolam 0.5 mg tablet 0.5 mg PO DAILY RF: 0 diltiazem HCl 240 mg Capsule,Extended Release 24 Hr 240 mg PO DAILY RF: 0 docusate sodium [Colace] 100 mg Capsule 100 mg PO BID RF: 0 nicotine [Nicoderm CQ] 21 mg/24 hr Patch 24 Hour 21 mg transdermal QAM PRN (Reason: nicotine craving) Qty: 7 RF: 0 tramadol 50 mg Tablet 50 mg PO Q4H PRN (Reason: pain) Qty: 18 RF: 0 Lactobacillus acidoph-L.bulgar [Floranex] 1 million cell Tablet 4 tab PO TIDM Qty: 360 RF: 0 ampicillin sodium 2 gram recon soln 2 gm IV Q6H 34 Days Qty: 136 RF: 0 ceftriaxone 2 gram recon soln 2 gm IV Q12 RF: 0 albuterol sulfate 2.5 mg /3 mL (0.083 %) solution for nebulization 2.5 mg NEB Q4H PRN (Reason: Wheezing) RF: 0 acetaminophen [Tylenol] 325 mg Tablet 650 mg PO Q4 PRN (Reason: pain on scale 1-3) RF: 0 sennosides-docusate sodium [Senokot-S] 8.6-50 mg Tablet 1 tab PO UD PRN (Reason: Constipation) RF: 0 polyethylene glycol 3350 [Miralax] 17 gram/dose Powder 17 g PO UD PRN (Reason: Constipation) RF: 0 losartan 50 mg Tablet 150 mg PO DAILY 30 Days Qty: 90 RF: 0 furosemide 20 mg Tablet 60 mg PO DAILY 15 Days Qty: 45 RF: 0 Discontinued Xarelto 20 mg Tablet 20 mg PO PM Qty: 0 RF: 0 potassium chloride 10 mEq Capsule, Extended Release 10 meq PO BID RF: 0 Stand-Alone Forms: [facility] Discharge Orders: Discharge Order (Routine); Ordered 04/16/19 Ordered By: Toni Jiménez Skilled Items Patient informed of condition?: Yes DNR: No Discharge Level of Care: Acute rehab Communicable Disease: No Discharge Prognosis: Improving Admission Data Admit Date/Time: 04/10/19 13:47 Attending Provider: Toni Jiménez Admit Provider: Lucero Banks Primary Care Provider: [facility] Other Providers: Regino Denis ; Wili Hodges ; Raad Alanis Service: Medical Other Interventions: Discharge Summary Assessment (RN) Last Done: 04/15/19 14:30 Resident Activity Tracking Resident Involvement: Resident Care Provided Care Provided: Adult Hospital Medicine
--- NOTE | 2019-04-15 15:20 | Family Medicine Progress Note ---
Date of Service April 15, 2019 Assessment & Plan (1) Acute GI bleedin-year-old female was readmitted on [address] [facility] due to melena. Of note, she was an inpatient from March 10 to March 21 for infective endocarditis amongst other issues and again from March 25- for hypoxemic respiratory failure. Acute (GI bleed) on chronic anemia: About two days of worsening melena prior to admit. Multiple transfusions since late February and 2 units PRBCs on this admit. Held her xarelto as inpatient (on it for afib). On protonix 40 mg PO BID as well as Carafate. 28May underwent upper GI and now s/p cautery to four bleeding duodenal angioectasias. Hb has been stable. - Recommend CBC this coming Thursday and Thursday (April 19 & ). - May need iron supplementation as well. Ongoing infective endocarditis: Thought to be due from infected port, most recently imaged on 15May TTE with mitral and aortic valve masses. EF 55-60%. Continuing ampicillin and ceftriaxone through . Acute on chronic hypoxic respiratory failure: In setting of acute blood loss. Historically intolerant of inhalers. On previous admit, periods of hypoxia thought to be mixed picture between pneumonia and pulmonary edema. Continued on home Lasix 60 mg daily. Albuterol and supplemental oxygen (including CPAP/BiPAP) as needed. Elevated alk phos: Admit AP 232. AST, ALT, and total bilirubin normal. 26May CT a/p with IV contrast noted some gallbladder sludge and stones without thick ening. GGT 122. Does not complain of any abdominal symptoms. May also be bone / arthritis related. Prior aspiration pneumonia: Prior video swallow on 16May noted moderate to severe pharyngeal stage dysphagia along with occasional silent aspiration. Dietary precautions in place. Hypokalemia: As low as K 3.0, replaced. Is also on routine KCl supplementation, but increased it to 20 mEq BID. Monitoring. Hypocalcemia: As low as Ca 7.4. Replaced, monitoring. Added Vitamin D2 and D3 supplementation. Ongoing medical issues: - History of lung cancer s/p right lower lobe lobectomy in 2017 and chemotherapy. - Hypertension: Continue home diltiazem, losartan, potassium. - Paroxysmal atrial fibrillation: Continue diltiazem. --- Plan to restart Xarelto 20 mg q PM on Thursday, per GI recommendations. - Rheumatoid arthritis: Not presently on any DMARDs. - Anxiety: Continue home Xanax. - Spinal discitis: T11-T12 as well as L3-L4. Seen by orthopedics on a previous admission, no surgical intervention recommended at that time. Has some ongoing back pain, so continue home tramadol. - Left psoas abscess: As seen on prior admission, 1 cm, asymptomatic. Treated with IV antibiotics. - Cognitive impairment: Concerns for same / dementia on prior admissions. MRI of her brain was negative for septic emboli. - ? possible myelodysplasia: Report that peripheral smear on suggested possible myelodysplasia. Code status: DO NOT RESUSCITATE. Diet: Regular diet with caveats Low sodium, thick liquids, no straws, aspiration precautions. DVT prophy: Chemical prophylaxis contraindicated during acute anemia. Plan to restart Xarelto on . PT/OT: Recommended return to [facility] for further rehab (but they declined). Disbo: Admitted to med surg. Case management consulted. Recently transferred from [facility]. Normally lives at home. Working on rehab options. May be able to go to [place] tomorrow (). (2) Chronic anemia: (3) Infective endocarditis: (4) Acute and chronic respiratory failure with hypoxia: (5) Elevated alkaline phosphatase level: (6) History of aspiration pneumonia: (7) History of lung cancer: (8) Hypertension: (9) Atrial fibrillation: (10) Rheumatoid arthritis: (11) Anxiety: (12) Discitis of multiple sites of spine: (13) Psoas abscess, left: (14) Cognitive impairment: (15) Hypokalemia: (16) Hypocalcemia: Supervising Physician Co-Signing Physician Notes I personally examined the patient and verified all swan points of history and exam, discussed case, and agree with decision making with Dr Ramirez. Patient seen this morning, was ready to go to SNF, feeling good, ready to go. Later I was called back, she was extremely anxious as she had some dark stools. She was essentially refusing to go to SNF today vitals noted, nad, pleasant. breathing unlabored no pallor or icterus. no focal neuro deficits. pleasantly anxious. GI bleed w acute/subacute blood loss anemia due to angioectasia now treated with epi injection of fulgeration - post transfusion. hold anticoagulation for now - can resume cautiously in a few days as long as she continues to be stable. I discussed with her frankly that with multiple days of stable hemoglobin and dark stools as well as stable vitals, I really do not believe she is rebleeding, but given her intense anxiety about the situation we will delay transfer to SNF until tomorrow to be able to follow her hemoglobin over the next 12 to 18 hours. holding anticoagulation due to above rehab will not take her back. snf tomorrow pending her a.m. hemoglobin Subjective Patient resting earlier this morning. She had no particular complaints. She looks forward to getting out of the hospital. Review of Systems Review of Systems: Per HPI as above. Physical Exam Physical Exam: General Appearance: Awake, alert, comfortable in general, NAD. CV: +S1S2 RRR, no murmur. Right chest port accessed. Pulm: Clear to auscultation throughout. On room air. Abdomen: +BS, soft, non-tender, non-distended. Extremities: No pedal edema or calf tenderness. Moving all extremities naturally and easily. Neuro: No gross neuro deficits. Results & Data Vital Signs (Past 12 Hours) Vital Signs Temp Pulse Pulse Resp BP BP Pulse Ox 04/15/19 14:30 36.7 C 89 75 18 147/67 H 156/68 H 96 04/15/19 07:29 36.7 C 75 18 147/67 H 96 Laboratory Results 04/15/19 04/15/19 Range/Units 05:42 05:42 Hgb 9.7 L (12.0-16.0) g/dL Hct 29.6 L (37-47) % Sodium 142 (136-145) mmol/L Potassium 3.5 D (3.5-5.1) mmol/L Chloride 106 (98-107) mmol/L Carbon Dioxide 31 (21-32) mmol/L Anion Gap 5.0 (3-11) BUN 11 (7-18) mg/dl Creatinine 0.89 (0.6-1.2) mg/dl Est Cr Clr Drug Dosing 37.8 ml/min Est GFR ( Amer) 74.0 Est GFR (Non-Af Amer) 63.8 BUN/Creatinine Ratio 11.9 (10-20) Glucose 77 (70-99) mg/dl Calcium 7.7 L (8.5-10.1) mg/dl Medications Administered Current Inpatient Medications Acetaminophen (Tylenol) 650 mg PO Q4 PRN PRN Reason: pain on scale 1-3 Stop: 05/10/19 15:20 Last Admin: 04/15/19 07:56 Dose: 650 mg Documented by: Albuterol (Ventolin 0.083% 2.5mg/3ml) 2.5 mg NEB Q4H PRN PRN Reason: Wheezing Stop: 05/10/19 15:20 Alprazolam (Xanax) 0.5 mg PO DAILY [facility] Stop: 05/10/19 15:20 Last Admin: 04/15/19 07:56 Dose: 0.5 mg Documented by: Diltiazem HCl (Cardizem Cd) 240 mg PO DAILY [facility] Stop: 05/10/19 15:20 Last Admin: 04/15/19 07:52 Dose: 240 mg Documented by: Ergocalciferol (Vitamin D2) 50,000 units PO Q7D@0900 [facility] Stop: 05/14/19 10:59 Last Admin: 04/14/19 12:15 Dose: 50,000 units Documented by: Furosemide (Lasix) 60 mg PO DAILY [facility] Stop: 05/11/19 08:59 Last Admin: 04/15/19 07:51 Dose: 60 mg Documented by: Heparin Sodium (Beef Lung) (Heparin Sod 10 Unit/Ml Flush) 5 ml FLUSH PRN PRN PRN Reason: PRN Stop: 05/15/19 05:48 Last Admin: 04/15/19 07:43 Dose: 5 ml Documented by: Ceftriaxone Sodium 2,000 mg/ (Dextrose) 70 mls @ 140 mls/hr IV Q12H [facility]; Protocol Stop: 04/24/19 23:59 Last Infusion: 04/15/19 07:41 Dose: Infused Documented by: Ampicillin Sodium 2,000 mg/ (Sodium Chloride) 100 mls @ 200 mls/hr IV Q6H [facility]; Protocol Stop: 04/24/19 23:59 Last Infusion: 04/15/19 13:53 Dose: Infused Documented by: Sodium Chloride (Nss) 250 mls @ 15 mls/hr IV .[id number] PRN PRN Reason: For Transfusion Stop: 05/13/19 08:46 Lactobacillus Acidophilus (Floranex) 4 tab PO TIDM [facility] Stop: 05/10/19 16:59 Last Admin: 04/15/19 13:05 Dose: 4 tab Documented by: Losartan Potassium (Cozaar) 150 mg PO DAILY [facility] Stop: 05/10/19 15:20 Last Admin: 04/15/19 07:50 Dose: 150 mg Documented by: Miscellaneous (Remove Nicoderm Patch) 1 ea N/A HS [facility] Stop: 05/10/19 20:59 Last Admin: 04/14/19 21:02 Dose: Not Given Documented by: Nicotine (Nicoderm Cq) 21 mg TD QAM PRN PRN Reason: nicotine craving Stop: 05/10/19 15:20 Pantoprazole Sodium (Protonix) 40 mg PO BID [facility] Stop: 05/14/19 08:59 Last Admin: 04/15/19 07:51 Dose: 40 mg Documented by: Potassium Chloride (Klor-Con M20) 20 meq PO BID [facility] Stop: 05/15/19 08:59 Last Admin: 04/15/19 07:53 Dose: 20 meq Documented by: Sucralfate (Carafate) 1 gm PO QID [facility] Stop: 05/11/19 16:59 Last Admin: 04/15/19 13:06 Dose: 1 gm Documented by: Tramadol HCl (Ultram) 50 mg PO Q4H PRN PRN Reason: pain Stop: 05/10/19 15:20 Vitamin D (Vitamin D3) 2,000 units PO QAM [facility] Stop: 05/14/19 10:59 Last Admin: 04/15/19 07:52 Dose: 2,000 units Documented by: Resident Activity Tracking Resident Involvement: Resident Care Provided Care Provided: Adult Hospital Medicine (1) Rheumatoid arthritis Rheumatoid arthritis location: unspecified site Rheumatoid factor presence: unspecified presence Qualified Code(s): M06.9 - Rheumatoid arthritis, unspecified (2) Infective endocarditis Chronicity: acute Infective endocarditis organism: bacterial Qualified Code(s): I33.0 - Acute and subacute infective endocarditis (3) Atrial fibrillation Atrial fibrillation type: unspecified Qualified Code(s): I48.91 - Unspecified atrial fibrillation
[2019-04-16] MEDS: cefTRIAXone SODIUM 2,000 MG in DEXTROSE 5% 50 ML IV SCH ×2 (05:51→17:44)
[2019-04-16] MEDS: AMPICILLIN 2,000 MG in SODIUM CHLOR 0.9% AD-VAN 100 ML IV SCH ×4 (06:22→17:17)
[2019-04-16 06:29] LABS: Hematocrit (blood only) 30.1 % (37-47); Hemoglobin 9.7 g/dL (12.0-16.0)
[2019-04-16 07:07] LABS: Albumin Level 1.9 gm/dl (3.4-5.0); Calcium 7.8 mg/dl (8.5-10.1); Creatinine Clr Calc Pharmacy 37.4 ml/min; Potassium 3.3 mmol/L (3.5-5.1)
[2019-04-16 07:10] LABS: Albumin Globulin Ratio 0.5 (0.9-2); Bilirubin,Total 0.2 mg/dl (0.2-1); Globulin 3.6 gm/dl (2.5-4.0); Total Protein 5.5 gm/dl (6.4-8.2)
[2019-04-16] MEDS ORDERED: POTASSIUM CHLORIDE 20 MEQ TABCR PO STA (07:23)
[2019-04-16] MEDS: CHOLECALCIFEROL 1,000 UNITS TAB PO SCH (07:37)
[2019-04-16] MEDS: PANTOprazole 40 MG TAB PO SCH (07:38)
[2019-04-16] MEDS: LACTOBACILLUS ACIDOPHILUS (FLORANEX) TAB PO SCH ×3 (07:38→17:18)
[2019-04-16] MEDS: LOSARTAN POTASSIUM 50 MG TAB PO SCH (07:38)
[2019-04-16] MEDS: dilTIAZem HCL 240 MG CAPCR PO SCH (07:38)
[2019-04-16] MEDS: FUROSEMIDE 20 MG TAB PO SCH (07:39)
[2019-04-16] MEDS: SUCRALFATE 1 GM/10 ML UDC PO SCH ×3 (07:39→17:18)
[2019-04-16] MEDS: POTASSIUM CHLORIDE 20 MEQ TABCR PO SCH (07:39)
[2019-04-16] MEDS: ALPRAZolam 0.5 MG TABLET PO SCH (07:48)
[2019-04-16] MEDS: ACETAMINOPHEN 325 MG TAB PO PRN ×2 (07:48→14:17)
--- NOTE | 2019-04-16 18:29 | Discharge Summary ---
Date of Service April 16, 2019 Admission HPI Per Admitting Provider 74-year-old female with PMH infective endocarditis, left lung cancer, RA, PAF on xarelto, smoker, HTN, discitis who was brought to the emergency department by EMS from [facility] due to melena early this morning. Of note, the patient was an inpatient from March 10 to March 21 for infective endocarditis amongst other issues. She was discharged to [facility]. She was then readmitted 10May - 19May for hypoxemic respiratory failure and was noted to have anemia then and plan for EGD to be done once endocarditis treatment completed on April 24. ED Course: Hgb/Hct on presentation was noted to be 6.2/18.4, and stool guaiac positive. She is currently receiving 2 units PRBCs in ED, and one bolus of protonix IV. Mild hypoxia noted, nasal cannula applied and is 98% on 2L. Other notable labs include: elevated alk phos 232. CT a/p notable for GB sludge with small stones, improving airspace opacities in lower lungs, no bowel wall thickening or obstruction, no change in T11-T12/L3-L4 discitis. --- Past medical history includes left lung cancer, rheumatoid arthritis, paroxysmal atrial fibrillation, smoker, hypertension, spinal discitis. --- Past surgical history includes left lower lobe lobectomy in 2017. --- Social history includes current smoker of up to 1 pack/day. Denies alcohol use. Usually lives at home alone. Currently residing at [facility]. Principal Diagnosis GI bleed Discharge Data Allergies Allergy/AdvReac Type Severity Reaction Status Date / Time No Known Allergies Allergy Verified 04/10/19 12:10 Consultations 04/10/19 12:19 ED Decision to Admit Stat 04/10/19 15:21 Consult Case Management - Discharge Planning Routine 04/10/19 17:05 Consult Gastroenterology Routine Procedures Performed Operation Date: 04/12/19 08:30 Actual Procedures p EGD Hemostasis - Raad Alanis, DO Ordered Studies 04/10/19 11:32 CT abd pelvis IV con only Stat Total Time Total Time Spent Total Time Spent (In Minutes): <30 Discharge Plan Discharge Items Patient Disposition: Transfer Inpatient Rehab Fac Reason For Visit: GIB, ACUTE BLOOD LOSS Discharge Diagnosis: Acute GI bleed, anemia Discharge Goals: Decrease discomfort and Increase independence Activity: Per 'Additional Instructions' section Non-emergency contact: Primary Care Provider Call non-emergency contact if: you have any medication questions Follow-up/Referrals: [facility] [Primary Care Provider] - Diet: Regular and Low Sodium (2gm) Liquid Consistency: [place] thick Diet Comment: No straws. Addtl Provider Instructions: You were admitted to the hospital on April 10, 2019 due to bloody bowel movements. While in the hospital we evaluated the following issues: Acute gastrointestinal bleed with chronic anemia: You are seen by the household personal assistant here and, after an upper endoscopy noted to have a couple of areas in your intestine (duodenum) that were bleeding. These areas were cauterized. Since that time your blood counts have been more stable, but you remain anemic (with low red blood cell counts). During this hospitalization received two units of blood. This is in addition to the multiple units of blood you received on previous admissions. You were also started on two medications, pantoprazole and Carafate. - It remains very important that you follow-up with your rehabilitation medical team as well as your primary care provider for ongoing anemia lab work checks. - Please continue to monitor for any new evidence of bleeding, for which you should be seen in the hospital as soon as possible. - You have been having some dark stools over the last few days - this appears to be old blood that is still passing through your intestines - despite having dark stools, your blood counts have been completely stable since the transfusion. As long as you are not pale or dizzy, and as long as your heart rate and blood pressure appear stable, we would recommend having blood counts checked if there is concern on your stools before being sent back to the ER. We are more than happy to take care of you if things were to truly worsen, but we would love to save you the turmoil of being sent back to the ER for what would amount to old blood from bleeding that has stopped. Atrial fibrillation on blood thinners: Because of your bleeding is discussed above, the gastroenterology team recommended that you restart your Xarelto on Thursday, April 18. Blood counts again on Thursday would be most appropriate. Ongoing infective endocarditis: As has been discussed in your previous admissions, you should continue your ampicillin and ceftriaxone antibiotics through April 24. Acute on chronic respiratory failure: Also as noted on previous admissions, at times you do need some supplemental oxygen. Please work with your rehabilitation medical team to see if you can come off of oxygen. Otherwise you may need it for home use. Low potassium levels: At times your potassium was noted to be quite low. We replaced it here and recommend that you increase your home potassium replacement dosing up to 20 mEq twice a day. A new prescription for this was written. Overall, the new prescriptions from this visit are an increase in your potassium regimen as well as new Carafate, protonix, and Vitamins D2 and D3. Please work with your rehabilitation team as well as your primary care provider for close post-hospitalization continuity of care. Please return to the emergency department if you develop any new rectal bleeding, abdominal pain, dizziness or chest pain or shortness of breath, or with any other emergent concerns. Prescriptions: New potassium chloride [Klor-Con M20] 20 mEq Tablet,Er Particles/Crystals 20 meq PO BID 30 Days Qty: 60 RF: 0 sucralfate 100 mg/mL Suspension 10 ml PO QID 14 Days Qty: 560 RF: 0 pantoprazole 40 mg Tablet,Delayed Release (Dr/Ec) 40 mg PO BID 30 Days Qty: 60 RF: 0 cholecalciferol (vitamin D3) 1,000 unit tablet,chewable 1,000 units PO DAILY Qty: 30 RF: 0 ergocalciferol (vitamin D2) [Vitamin D2] 50,000 unit Capsule 50,000 unit PO Q7D@0900 28 Days Qty: 4 RF: 0 Continued bisacodyl 10 mg Suppository 10 mg SC DAILY PRN (Reason: Constipation) RF: 0 Fleet Enema 19-7 gram/118 mL Enema 118 ml SC DAILY PRN (Reason: Constipation) RF: 0 magnesium hydroxide 2,400 mg/10 mL Suspension 30 ml PO DAILY PRN (Reason: Constipation) RF: 0 alprazolam 0.5 mg tablet 0.5 mg PO DAILY RF: 0 diltiazem HCl 240 mg Capsule,Extended Release 24 Hr 240 mg PO DAILY RF: 0 docusate sodium [Colace] 100 mg Capsule 100 mg PO BID RF: 0 nicotine [Nicoderm CQ] 21 mg/24 hr Patch 24 Hour 21 mg transdermal QAM PRN (Reason: nicotine craving) Qty: 7 RF: 0 tramadol 50 mg Tablet 50 mg PO Q4H PRN (Reason: pain) Qty: 18 RF: 0 Lactobacillus acidoph-L.bulgar [Floranex] 1 million cell Tablet 4 tab PO TIDM Qty: 360 RF: 0 ampicillin sodium 2 gram recon soln 2 gm IV Q6H 34 Days Qty: 136 RF: 0 ceftriaxone 2 gram recon soln 2 gm IV Q12 RF: 0 albuterol sulfate 2.5 mg /3 mL (0.083 %) solution for nebulization 2.5 mg NEB Q4H PRN (Reason: Wheezing) RF: 0 acetaminophen [Tylenol] 325 mg Tablet 650 mg PO Q4 PRN (Reason: pain on scale 1-3) RF: 0 sennosides-docusate sodium [Senokot-S] 8.6-50 mg Tablet 1 tab PO UD PRN (Reason: Constipation) RF: 0 polyethylene glycol 3350 [Miralax] 17 gram/dose Powder 17 g PO UD PRN (Reason: Constipation) RF: 0 losartan 50 mg Tablet 150 mg PO DAILY 30 Days Qty: 90 RF: 0 furosemide 20 mg Tablet 60 mg PO DAILY 15 Days Qty: 45 RF: 0 Discontinued Xarelto 20 mg Tablet 20 mg PO PM Qty: 0 RF: 0 potassium chloride 10 mEq Capsule, Extended Release 10 meq PO BID RF: 0 Stand-Alone Forms: [facility] Discharge Orders: Discharge Order (Routine); Ordered 04/16/19 Ordered By: Toni Jiménez Skilled Items Patient informed of condition?: Yes DNR: No Discharge Level of Care: Acute rehab Communicable Disease: No Discharge Prognosis: Improving Admission Data Admit Date/Time: 04/10/19 13:47 Attending Provider: Toni Jiménez Admit Provider: Lucero Banks [facility] Other Providers: Regino Denis ; Wili Hodges ; Raad Alanis Service: Medical Other Interventions: Discharge Summary Assessment (RN) Last Done: 04/15/19 14:30
== END 2019-04-16 19:15 | DRG 377 ==
LOC: ED 10:35 → SUATTDRO 13:47 → 2S 13:47 → 4E 04-11 12:47